=== PATIENT | female | born 1955 | race African-American/Black ===

== ENCOUNTER 2017-11-09 19:04 | Emergency (ER) | payer MEDICARE ==
[2017-11-09 20:08] LABS: Urine Blood NEGATIVE (NEG); Urine Glucose NEGATIVE (NEG); Urine Protein NEGATIVE (NEG)
[2017-11-09 21:03] LABS: Urine Bacteria <20 /HPF (<20); Urine Culture Reflex Order NOT NEEDED; Urine RBC <5 /HPF (NONE SEEN)
[2017-11-09 21:55] LABS: Absolute Lymphocytes (CBC) 1.7 K/uL (0.7-4.9); Absolute Monocytes 0.3 K/uL (0.1-1.3); Absolute Neutrophil 3.4 K/uL (1.8-8.0); Basophils % 0.3 % (0-1.3); Eosinophils % 3.1 % (0-4.4); Lymphocytes % 30.6 % (15.3-44.8); MCH 29.2 pg (27.0-35.0); MCV 86.7 fL (80-100); MPV 7.6 fL (7.6-11.3); RBC Red Blood Cell Count 4.16 M/uL (3.86-4.86)
[2017-11-09] MEDS ORDERED: MORPHINE 4 MG/ML SYR ONE (21:55)
[2017-11-09] MEDS ORDERED: ONDANSETRON 4 MG/2 ML VIAL ONE (21:55)
[2017-11-09 22:12] LABS: ALT/SGPT 36 U/L (12-78); AST/SGOT 17 U/L (15-37); Albumin 3.9 g/dL (3.4-5.0); Alkaline Phosphatase 75 U/L (45-117); Amylase Level 63 U/L (25-115); BUN Blood Urea Nitrogen 15 mg/dL (7-18); Bicarbonate 31 mmol/L (21-32); Bilirubin Direct < 0.1 mg/dL (0-0.2); Bilirubin Total 0.3 mg/dL (0.2-1.0); Glucose Level 90 mg/dL (74-106); Lipase 124 U/L (73-393); Potassium 3.7 mmol/L (3.5-5.1); Protein, Total 7.2 g/dL (6.4-8.2); Sodium Level 145 mmol/L (136-145)
--- NOTE | 2017-11-10 01:02 | ER ---
Nurse's Notes [facility] Name: Nanci Barros Age: 62 yrs Sex: Female : 1955 Arrival Date: 11/09/2017 Time: 19:05 Bed 17 Private MD: Diagnosis: Low back pain Presentation: 11/09 19:21 Presenting complaint: Patient states: lower lateral right sided abdominal pain that aj1 started suddenly today at approximately 1500. Denies N/V/D, fever, dysuria, urinary frequency. Transition of care: patient was not received from another setting of care. Onset of symptoms was November 09, 2017 at 15:00. Risk Assessment: Do you want to hurt yourself or someone else? Patient reports no desire to harm self or others. Initial Sepsis Screen: Does the patient meet any 2 criteria? No. Patient's initial sepsis screen is negative. Does the patient have a suspected source of infection? No. Patient's initial sepsis screen is negative. Care prior to arrival: None. 19:21 Method Of Arrival: Ambulatory [facility] 19:21 Acuity: GET 3 aj1 Triage Assessment: 19:25 General: Appears uncomfortable, Behavior is cooperative, restless. Pain: Complains of aj1 pain in anterior aspect of right lateral abdomen and right lower quadrant Pain does not radiate. Pain currently is 10 out of 10 on a pain scale. Quality of pain is described as heavy, Pain began 4 hours ago. Is continuous. GI: Reports lower abdominal pain, Patient currently denies diarrhea, nausea, vomiting. : Denies burning with urination, urinary frequency. Historical: - Allergies: 19:25 PENICILLINS; aj1 - Home Meds: 19:25 losartan 100 mg Oral tab once daily [Active]; metformin 500 mg Oral tab daily [Active]; aj1 - PMHx: 19:25 Diabetes - NIDDM; Hypertension; psoriasis; aj1 - Immunization history:: Flu vaccine is not up to date. - Social history:: Smoking status: Patient/guardian denies using tobacco. - Ebola Screening: : Patient denies travel to an Ebola-affected area in the 21 days before illness onset. Screenin:00 Abuse screen: Denies threats or abuse. Denies injuries from another. Nutritional bp screening: No deficits noted. Tuberculosis screening: No symptoms or risk factors identified. Fall Risk None identified. Assessment: 20:00 General: Appears in no apparent distress. uncomfortable, Behavior is calm, cooperative, bp appropriate for age. Pain: Complains of pain in right lower quadrant. Neuro: Level of Consciousness is awake, alert, obeys commands, Oriented to person, place, time, situation, Appropriate for age. Cardiovascular: No deficits noted. Respiratory: Airway is patent Respiratory effort is even, unlabored, Respiratory pattern is regular, symmetrical. GI: Reports lower abdominal pain. : Reports pain in right flank(s). EENT: No deficits noted. Derm: No deficits noted. Musculoskeletal: Circulation, motion, and sensation intact. Range of motion: intact in all extremities. 21:23 Reassessment: UNABLE TO OBTAIN U/S PIV x2, PROVIDER NOTIFIED. AWAITING FURTHER ATTEMPTS bp FOR IV MEDICATION AND BLOOD SPECIMEN. 21:58 Reassessment: U/S PIV OBTAINED, PROVIDER NOTIFIED. CT NOTIFIED, PO CONTRAST COMPLETED. bp 23:00 Reassessment: PT TO CT WITH CARDROOM PLASTIC CARD GRADER. bp 11/10 00:00 Reassessment: ALL CURRENT ORDERS COMPLETED, CT RESULTS PENDING FOR DISPO. bp 01:06 Reassessment: PT D/C HOME AMBULATORY, DX WITH BACK PAIN. bp Vital Signs: 11/09 19:25 BP 134 / 77; Pulse 86; Resp 20; Temp 98.5; Pulse Ox 99% ; Weight 122.02 kg (R); Height aj1 5 ft. 6 in. (167.64 cm); Pain 10/10; 21:00 BP 117 / 67; Pulse 75; Resp 16; Pulse Ox 98% ; bp 22:00 BP 132 / 62; Pulse 77; Resp 16; Pulse Ox 94% ; bp 22:45 BP 119 / 58; Pulse 75; Resp 16; Pulse Ox 97% ; bp 11/10 00:00 BP 121 / 62; Pulse 70; Resp 16; Pulse Ox 98% ; bp 11/09 19:25 Body Mass Index 43.42 (122.02 kg, 167.64 cm) aj1 ED Course: 11/09 19:05 Patient arrived in ED. es 19:25 Triage completed. aj1 19:25 Arm band placed on Patient placed in waiting room, Patient notified of wait time. aj1 19:54 Keshav Hendrickson NP is PHCP. pm1 19:54 Behzad Nichole MD is Attending Physician. pm1 20:00 Patient has correct armband on for positive identification. Bed in low position. Call bp light in reach. Side rails up X2. Adult w/ patient. 20:01 Nathaniel Thurman, RN is Primary Nurse. bp 21:45 Initial lab(s) drawn, by me, sent to lab. Inserted saline lock: 22 gauge in left bb antecubital area, using aseptic technique. Blood collected. 23:27 CT Abd/Pelvis - W/Contrast In Process Unspecified. EDMS 23:35 CT completed. Patient tolerated procedure well. Patient moved to ID via wheelchair. Patient moved back from ID. 11/10 00:53 Assisted to bathroom. ak1 01:05 No provider procedures requiring assistance completed. IV discontinued, intact, bp bleeding controlled, No redness/swelling at site. Pressure dressing applied. Administered Medications: 11/09 21:45 Drug: morphine 4 mg Route: IVP; Site: left antecubital; bp 22:45 Follow up: BP 119 / 58; Pulse 75 bpm; Resp 16 bpm; Pulse Ox 97% bp 22:55 Follow up: Response: Pain is decreased bp 21:45 Drug: Zofran 4 mg Route: IVP; Site: left antecubital; bp 22:54 Follow up: Response: Nausea is decreased bp 11/10 01:05 Drug: TORadol 30 mg Route: IVP; Site: left antecubital; bp 01:05 Follow up: Response: Medication administered at discharge. bp Outcome: 01:01 Discharge ordered by MD. pm1 01:06 Discharged to home ambulatory, with family. bp 01:06 Condition: stable 01:06 Discharge instructions given to patient, Instructed on discharge instructions, follow up and referral plans. medication usage, Demonstrated understanding of instructions, follow-up care, medications, Prescriptions given X 1. 01:11 Patient left the ED. bp Signatures: Dispatcher [employer] EDMS Sanam Cardoso, RN RN aj1 Betsy Durán Ervin Nanci Van RN RN bb Ani Goldberg RN RN ak1 Keshav Hendrickson, TOWEL INSPECTOR TOWEL INSPECTOR pm1 Nathaniel Thurman, RN RN bp
--- NOTE | 2017-11-10 01:02 | EDPHYS ---
Physician Documentation [facility] Name: Nanci Barros Age: 62 yrs Sex: Female : 1955 Arrival Date: 11/09/2017 Time: 19:05 Bed 17 Private MD: ED Physician Behzad Nichole HPI: 11/10 01:00 This 62 yrs old Black Female presents to ER via Ambulatory with complaints of Right pm1 Flank Pain. 01:00 The patient complains of pain in the right low back. pm1 01:00 The pain does not radiate. Onset: The symptoms/episode began/occurred today. Modifying pm1 factors: The symptoms are alleviated by nothing. the symptoms are aggravated by movement. Associated signs and symptoms: Pertinent negatives: diarrhea, dysuria, fever, headache, nausea, vomiting. Severity of pain: in the emergency department the pain is actually worse. The patient has not experienced similar symptoms in the past. The patient has not recently seen a physician. Patient with right flank pain onset while she was making a sandwich for her grandson. Historical: - Allergies: 11/09 19:25 PENICILLINS; aj1 - Home Meds: 19:25 losartan 100 mg Oral tab once daily [Active]; metformin 500 mg Oral tab daily [Active]; aj1 - PMHx: 19:25 Diabetes - NIDDM; Hypertension; psoriasis; aj1 - Immunization history:: Flu vaccine is not up to date. - Social history:: Smoking status: Patient/guardian denies using tobacco. - Ebola Screening: : Patient denies travel to an Ebola-affected area in the 21 days before illness onset. ROS: 11/10 01:00 Constitutional: Negative for fever, chills, and weight loss, Eyes: Negative for injury, pm1 pain, redness, and discharge, ENT: Negative for injury, pain, and discharge, Neck: Negative for injury, pain, and swelling, Cardiovascular: Negative for chest pain, palpitations, and edema, Respiratory: Negative for shortness of breath, cough, wheezing, and pleuritic chest pain, Abdomen/GI: Negative for abdominal pain, nausea, vomiting, diarrhea, and constipation. : Negative for injury, bleeding, discharge, and swelling, MS/Extremity: Negative for injury and deformity, Skin: Negative for injury, rash, and discoloration, Neuro: Negative for headache, weakness, numbness, tingling, and seizure. Back: Positive for flank pain, on the right. Exam: 01:00 Constitutional: This is a well developed, well nourished patient who is awake, alert, pm1 and in no acute distress. Head/Face: Normocephalic, atraumatic. Eyes: Pupils equal round and reactive to light, extra-ocular motions intact. Lids and lashes normal. Conjunctiva and sclera are non-icteric and not injected. Cornea within normal limits. Periorbital areas with no swelling, redness, or edema. ENT: Nares patent. No nasal discharge, no septal abnormalities noted. Tympanic membranes are normal and external auditory canals are clear. Oropharynx with no redness, swelling, or masses, exudates, or evidence of obstruction, uvula midline. Mucous membranes moist. Neck: Trachea midline, no thyromegaly or masses palpated, and no cervical lymphadenopathy. Supple, full range of motion without nuchal rigidity, or vertebral point tenderness. No Meningismus. Chest/axilla: Normal chest wall appearance and motion. Nontender with no deformity. No lesions are appreciated. 01:00 Respiratory: Lungs have equal breath sounds bilaterally, clear to auscultation and percussion. No rales, rhonchi or wheezes noted. No increased work of breathing, no retractions or nasal flaring. Abdomen/GI: Soft, non-tender, with normal bowel sounds. No distension or tympany. No guarding or rebound. No evidence of tenderness throughout. 01:00 Skin: Warm, dry with normal turgor. Normal color with no rashes, no lesions, and no evidence of cellulitis. MS/ Extremity: Pulses equal, no cyanosis. Neurovascular intact. Full, normal range of motion. 01:00 Cardiovascular: Rate: normal, Rhythm: regular, Edema: is not appreciated. 01:00 Back: normal spinal alignment noted, vertebral tenderness, is not appreciated, muscle spasm, is appreciated in the right low back. 01:00 Neuro: Orientation: is normal, Mentation: is normal, Motor: is normal, Sensation: is normal, no obvious gross deficits. Vital Signs: 11/09 19:25 BP 134 / 77; Pulse 86; Resp 20; Temp 98.5; Pulse Ox 99% ; Weight 122.02 kg (R); Height aj1 5 ft. 6 in. (167.64 cm); Pain 10/10; 21:00 BP 117 / 67; Pulse 75; Resp 16; Pulse Ox 98% ; bp 22:00 BP 132 / 62; Pulse 77; Resp 16; Pulse Ox 94% ; bp 22:45 BP 119 / 58; Pulse 75; Resp 16; Pulse Ox 97% ; bp 11/10 00:00 BP 121 / 62; Pulse 70; Resp 16; Pulse Ox 98% ; bp 11/09 19:25 Body Mass Index 43.42 (122.02 kg, 167.64 cm) aj1 MDM: 11/09 19:56 Patient medically screened. pm1 11/10 00:53 Data reviewed: vital signs. Data interpreted: Pulse oximetry: on room air is 98 %. pm1 Interpretation: normal. Counseling: I had a detailed discussion with the patient and/or guardian regarding: the historical points, exam findings, and any diagnostic results supporting the discharge/admit diagnosis, lab results, radiology results, the need for outpatient follow up, to return to the emergency department if symptoms worsen or persist or if there are any questions or concerns that arise at home. 11/09 20:04 Order name: Urine Dipstick--Ancillary (enter results); Complete Time: 23: 11/09 20:31 Order name: Amylase, Serum; Complete Time: 23:02 pm11/09 20:31 Order name: Basic Metabolic Panel; Complete Time: 23:02 pm11/09 20:31 Order name: CBC with Diff; Complete Time: 23:02 pm11/09 20:31 Order name: Creatinine for Radiology; Complete Time: 23:02 pm11/09 20:31 Order name: Hepatic Function; Complete Time: 23:02 pm11/09 20:04 Order name: Urine Dipstick-Ancillary (obtain specimen); Complete Time: 20:04 11/09 20:31 Order name: Lipase; Complete Time: 23:02 pm11/09 20:31 Order name: Urine Microscopic Only; Complete Time: 23:02 pm11/09 20:31 Order name: CT Abd/Pelvis - W/Contrast pm1 11/09 20:31 Order name: IV Saline Lock; Complete Time: 21:57 pm11/09 20:31 Order name: Labs collected and sent; Complete Time: 21:58 pm1 Administered Medications: 11/09 21:45 Drug: morphine 4 mg Route: IVP; Site: left antecubital; bp 22:45 Follow up: BP 119 / 58; Pulse 75 bpm; Resp 16 bpm; Pulse Ox 97% bp 22:55 Follow up: Response: Pain is decreased bp 21:45 Drug: Zofran 4 mg Route: IVP; Site: left antecubital; bp 22:54 Follow up: Response: Nausea is decreased bp 11/10 01:05 Drug: TORadol 30 mg Route: IVP; Site: left antecubital; bp 01:05 Follow up: Response: Medication administered at discharge. bp Disposition: 15:41 Co-signature as Attending Physician, Behzad Nichole MD I agree with the assessment and antonio plan of care. Disposition: 11/10/17 01:01 Discharged to Home. Impression: Low back pain. - Condition is Stable. - Discharge Instructions: Back Pain, Adult. - Prescriptions for Tylenol- Codeine #3 300-30 mg Oral Tablet - take 1 tablet by ORAL route every 6 hours As needed; 15 tablet. - Medication Reconciliation Form, Thank You Letter, Prescription Opioid Use form. - Follow up: Emergency Department; When: As needed; Reason: Worsening of condition. Follow up: Private Physician; When: 2 - 3 days; Reason: Recheck today's complaints, Continuance of care, Re-evaluation by your physician. - Problem is new. - Symptoms have improved. Signatures: Dispatcher [employer] EDMS Sanam Cardoso RN RN aj1 Behzad Nichole MD MD cha Ballard, Brenda, RN RN Keshav Rodriguez, JULISA SENIOR INTERNAL AUDITOR pm1 Nathaniel Thurman RN RN bp Corrections: (The following items were deleted from the chart) 01:11 01:01 11/10/2017 01:01 Discharged to Home. Impression: Low back pain. Condition is bp Stable. Forms are Medication Reconciliation Form, Thank You Letter, Antibiotic Education, Prescription Opioid Use. Follow up: Emergency Department; When: As needed; Reason: Worsening of condition. Follow up: Private Physician; When: 2 - 3 days; Reason: Recheck today's complaints, Continuance of care, Re-evaluation by your physician. Problem is new. Symptoms have improved. pm1
[2017-11-10] MEDS ORDERED: KETOROLAC 30 MG/ML INJ ONE (01:04)
[2017-11-10 02:17] VITALS: TEMP 98.5
[2017-11-10 02:22] VITALS: BP 121/62; O2SAT 98
--- NOTE | 2017-11-10 08:21 | RAD REPORT ---
EXAM DESCRIPTION: CTAbdomen Pelvis W Contrast - 11/10/2017 3:29 am CLINICAL HISTORY: Abdominal pain. FLANK PAIN COMPARISON: Abdomen Pelvis W Contrast dated 08/24/2016 TECHNIQUE: Biphasic CT imaging of the abdomen and pelvis was performed with 100 ml non-ionic IV cont rast. All CT scans are performed using dose optimization technique as appropriate and may include automated exposure control or mA/KV adjustment according to patient size. FINDINGS: The lung bases are clear. Diffuse fatty liver is present. Cholecystectomy clips are seen. The spleen, pancreas and adrenal glan ds are normal. Markedly atrophic left kidney present. Punctate stone present right kidney. No bowel obstruction, free air, free fluid or abscess. Sigmoid diverticulosis coli is present without diverticulitis. The appendix is normal. No evidence of significant lymphadenopathy. Lumbosacral degenerative changes are present. IMPRESSION: Diffuse fatty liver. Sigmoid diverticulosis coli without diverticulitis. Punctate right renal calculus without hydronephrosis.
== END 2017-11-10 01:11 | disposition home or self-care (01) ==
LOC: ER 19:04
DX: M54.5 Low back pain (principal); I10 Essential (primary) hypertension; E11.9 Type 2 diabetes mellitus without complications; Z88.0 Allergy status to penicillin
CPT/HCPCS: 36415; 74177; 80048; 80076; 82150; 83690; 85025; 96374; 96375; 99284; J2405; Q9967; 81003; 81015

== ENCOUNTER 2018-02-04 23:14 | Emergency (ER) | payer MEDICARE ==
--- NOTE | 2018-02-04 23:52 | EDPHYS ---
Physician Documentation [facility] Name: Nanci Barros Age: 62 yrs Sex: Female : 1955 Arrival Date: 02/04/2018 Time: 23:17 Bed 20 Private MD: ED Physician Brian Gudino HPI: 02/04 23:48 This 62 yrs old Black Female presents to ER via Wheelchair with complaints of Knee Pain.gs 23:48 The patient presents with pain. The complaints affect the left knee. Onset: The gs symptoms/episode began/occurred 2 week(s) ago, and became worse and became persistent. Modifying factors: the symptoms are aggravated by movement. Associated signs and symptoms: Pertinent negatives numbness, tingling. Severity of symptoms: At their worst the symptoms were moderate, in the emergency department the symptoms are unchanged. The patient has experienced similar episodes in the past, chronically. The patient has been recently seen by a physician: had injection in that knee last week. Historical: - Allergies: 23:30 PENICILLINS; tl2 - Home Meds: 23:30 losartan 100 mg Oral tab once daily [Active]; metformin 500 mg Oral tab daily [Active]; tl2 - PMHx: 23:30 Diabetes - NIDDM; Hypertension; psoriasis; tl2 - PSHx: 23:30 Cholecystectomy; tl2 - Immunization history:: Adult Immunizations up to date. - Social history:: Smoking status: Patient/guardian denies using tobacco. - Ebola Screening: : No symptoms or risks identified at this time. ROS: 23:48 All other systems are negative. gs Exam: 23:48 Cardiovascular: Regular rate and rhythm with a normal S1 and S2. No gallops, murmurs, gs or rubs. Normal PMI, no JVD. No pulse deficits. Respiratory: Lungs have equal breath sounds bilaterally, clear to auscultation and percussion. No rales, rhonchi or wheezes noted. No increased work of breathing, no retractions or nasal flaring. Abdomen/GI: Soft, non-tender, with normal bowel sounds. No distension or tympany. No guarding or rebound. No evidence of tenderness throughout. Skin: Warm, dry with normal turgor. Normal color with no rashes, no lesions, and no evidence of cellulitis. 23:48 Constitutional: The patient appears alert, awake. 23:48 Musculoskeletal/extremity: ROM: limited active range of motion due to pain, limited passive range of motion due to pain, Pulses: are normal with no appreciated deficits. Vital Signs: 23:30 BP 125 / 47; Pulse 85; Resp 18; Temp 97.6(O); Pulse Ox 100% ; Weight 117.93 kg; Height tl2 5 ft. 6 in. (167.64 cm); Pain 10/10; 02/05 00:00 BP 132 / 65; Pulse 87; Resp 17; Pulse Ox 100% on R/A; Pain 10/10; tl1 02/04 23:30 Body Mass Index 41.96 (117.93 kg, 167.64 cm) tl2 MDM: 02/04 23:46 Patient medically screened. gs 23:48 Differential diagnosis: tendonitis, arthritis. Data reviewed: vital signs, nurses gs notes. ED course: informed would refer to back to chronic pain physician and ortho. Administered Medications: No medications were administered Disposition: 02/04/18 23:51 Discharged to Home. Impression: Osteoarthritis of knee. - Condition is Stable. - Discharge Instructions: Arthritis. - Medication Reconciliation Form, Thank You Letter, Antibiotic Education, Prescription Opioid Use form. - Follow up: Private Physician; When: 2 - 3 days; Reason: Re-evaluation by your physician. Follow up: Fran Reynolds DO; When: 2 - 3 days; Reason: Re-evaluation by your physician. Follow up: Jelani Galarza MD; When: 2 - 3 days; Reason: Re-evaluation by your physician. Signatures: Tyesha Cantu RN RN tl1 Margoth Amezquita RN RN tl2 Brian Gudino MD MD Corrections: (The following items were deleted from the chart) 23:51 23:51 02/04/2018 23:51 Discharged to Home. Impression: Osteoarthritis of knee. gs Condition is Stable. Forms are Medication Reconciliation Form, Thank You Letter, Antibiotic Education, Prescription Opioid Use. Follow up: Private Physician; When: 2 - 3 days; Reason: Re-evaluation by your physician. 23:52 23:51 02/04/2018 23:51 Discharged to Home. Impression: Osteoarthritis of knee. gs Condition is Stable. Forms are Medication Reconciliation Form, Thank You Letter, Antibiotic Education, Prescription Opioid Use. Follow up: Private Physician; When: 2 - 3 days; Reason: Re-evaluation by your physician. Follow up: Fran Reynolds; When: 2 - 3 days; Reason: Re-evaluation by your physician. 02/05 00:13 02/04 23:52 02/04/2018 23:51 Discharged to Home. Impression: Osteoarthritis of knee. tl1 Condition is Stable. Forms are Medication Reconciliation Form, Thank You Letter, Antibiotic Education, Prescription Opioid Use. Follow up: Private Physician; When: 2 - 3 days; Reason: Re-evaluation by your physician. Follow up: Fran Reynolds; When: 2 - 3 days; Reason: Re-evaluation by your physician. Follow up: Jelani Galarza; When: 2 - 3 days; Reason: Re-evaluation by your physician.
--- NOTE | 2018-02-04 23:52 | ER ---
Nurse's Notes [facility] Name: Nanci Barros Age: 62 yrs Sex: Female : 1955 Arrival Date: 02/04/2018 Time: 23:17 Bed 20 Private MD: Diagnosis: Osteoarthritis of knee Presentation: 02/04 23:27 Presenting complaint: Patient states: I got a steroid shot in my knee on Tuesday and the tl2 pain has increased. Transition of care: patient was not received from another setting of care. Onset of symptoms was January 30, 2018. Risk Assessment: Do you want to hurt yourself or someone else? Patient reports no desire to harm self or others. Initial Sepsis Screen: Does the patient meet any 2 criteria? No. Patient's initial sepsis screen is negative. Does the patient have a suspected source of infection? No. Patient's initial sepsis screen is negative. Care prior to arrival: None. 23:27 Method Of Arrival: Wheelchair tl2 23:27 Acuity: GET 4 tl2 Triage Assessment: 23:30 General: Appears in no apparent distress. uncomfortable, Behavior is calm, cooperative, tl2 appropriate for age. Pain: Complains of pain in left knee. Neuro: Level of Consciousness is awake, alert, obeys commands, Oriented to person, place, time, situation. Cardiovascular: Denies chest pain. Respiratory: Airway is patent Respiratory effort is even, unlabored, Respiratory pattern is regular, symmetrical. Derm: Skin is pink, warm \T\ dry. Musculoskeletal: Circulation, motion, and sensation intact. Range of motion: limited in left knee Swelling absent. Historical: - Allergies: 23:30 PENICILLINS; tl2 - Home Meds: 23:30 losartan 100 mg Oral tab once daily [Active]; metformin 500 mg Oral tab daily [Active]; tl2 - PMHx: 23:30 Diabetes - NIDDM; Hypertension; psoriasis; tl2 - PSHx: 23:30 Cholecystectomy; tl2 - Immunization history:: Adult Immunizations up to date. - Social history:: Smoking status: Patient/guardian denies using tobacco. - Ebola Screening: : No symptoms or risks identified at this time. Screenin:34 Abuse screen: Denies threats or abuse. Nutritional screening: No deficits noted. tl2 Tuberculosis screening: No symptoms or risk factors identified. Fall Risk Gait- Impaired (20 pts.). Assessment: 02/05 00:10 Reassessment: No changes from previously documented assessment. Patient and/or family tl1 updated on plan of care and expected duration. Pain level reassessed. Patient is alert, oriented x 3, equal unlabored respirations, skin warm/dry/pink. Patient states symptoms have not improved. Vital Signs: 02/04 23:30 BP 125 / 47; Pulse 85; Resp 18; Temp 97.6(O); Pulse Ox 100% ; Weight 117.93 kg; Height tl2 5 ft. 6 in. (167.64 cm); Pain 10/10; 02/05 00:00 BP 132 / 65; Pulse 87; Resp 17; Pulse Ox 100% on R/A; Pain 10/10; tl1 02/04 23:30 Body Mass Index 41.96 (117.93 kg, 167.64 cm) tl2 ED Course: 02/04 23:17 Patient arrived in ED. ds1 23:29 Triage completed. tl2 23:30 Arm band placed on right wrist. tl2 23:34 Brian Gudino MD is Attending Physician. gs 23:34 Patient has correct armband on for positive identification. Bed in low position. Call tl2 light in reach. Side rails up X2. 23:51 Fran Reynolds DO is Referral Physician. 23:52 Jelani Galarza MD is Referral Physician. 02/05 00:00 Tyesha Cantu RN is Primary Nurse. tl1 00:10 No provider procedures requiring assistance completed. IV discontinued, intact, tl1 bleeding controlled, No redness/swelling at site. Pressure dressing applied. Administered Medications: No medications were administered Outcome: 02/04 23:51 Discharge ordered by . 02/05 00:11 Discharged to home via wheelchair, with family. tl1 Condition: stable Discharge instructions given to patient, family, Instructed on discharge instructions, follow up and referral plans. medication usage, Demonstrated understanding of instructions, follow-up care, medications, Prescriptions given X 3. 00:13 Patient left the ED. tl1 Signatures: Kristen Zaragoza ds1 Tyesha Cantu RN RN tl1 Margoth Amezquita RN RN tl2 Brian Gudino MD MD
[2018-02-05 00:26] VITALS: TEMP 97.6; O2SAT 100
[2018-02-05 00:27] VITALS: BP 132/65
== END 2018-02-05 00:13 | disposition home or self-care (01) ==
LOC: ER 23:14
DX: M17.12 Unilateral primary osteoarthritis, left knee (principal); I10 Essential (primary) hypertension; E11.9 Type 2 diabetes mellitus without complications; Z88.0 Allergy status to penicillin
CPT/HCPCS: 99282

== ENCOUNTER 2018-07-16 05:28 | Emergency (ER) | payer MEDICARE ==
--- OUTSIDE RECORDS SUMMARY | 2018-07-16 05:30 | XMS REPORT | Summary of Care ---
:1955 Author Name Sybil Machado M.A. Address Unavailable Unavailable , Care Team Providers Name Role Phone LIA Young, GALINDO Unavailable Unavailable LAZARO Young, DALE Unavailable Unavailable DANILO AYERS, ALEJANDRINA Hickey Unavailable Unavailable SUZETTE YAERS, COLTEN KUMARI Unavailable Unavailable Unavailable Unavailable Unavailable Functional Status Name Dates Details Functional status health issues are not documented Status: Name Dates Details Cognitive status health issues are not documented Status: Problems Name Dates Details Extremity pain (729.5, M79.609) Status: Active Well female exam with routine gynecological exam (V72.31, Z01.419) Status: Active Perineal rash (782.1, R21) Status: Active Vaginal dryness (625.8, N89.8) Status: Active Medications Name Dates Details Losartan Potassium TABS Refills: 0 Active MetFORMIN HCl - 500 MG Oral Tablet Refills: 0 Active Nystatin-Triamcinolone 817584-3.1 UNIT/GM-% External Cream APPLY 2 GM Twice daily Quantity: 30 Refills: 0 DALE WILLIS M.D. Start : 31-May-2016 Active Oxybutynin Chloride ER 5 MG Oral Tablet Extended Release 24 Hour TAKE 1 TABLET DAILY Quantity: 30 Refills: 11 DALE WILLIS M.D. Start : 31-May-2016 Active Estrace 0.1 MG/GM Vaginal Cream INSERT 1/4 APPLICATORFUL (1GM) VAGINALLY TWICE WEEKLY. Quantity: 10 Refills: 3 DALE WILLIS M.D. Start : 31-May-2016 Active Allergies and Adverse Reactions Name Dates Details Penicillins (Allergy) Status: Active Past Medical History Name Dates Details History of esophageal reflux (V12.79, Z87.19) Status: Resolved History of hypertension (V12.59, Z86.79) Status: Resolved History of type 2 diabetes mellitus (V12.29, Z86.39) Status: Resolved Procedures Procedure Dates Details History of Cholecystectomy Completed History of Treatment Of The Right Leg Completed History of Shoulder Surgery Right Completed History of Kidney Surgery Completed Immunization Name Dates Details Immunizations not documented Family History Name Dates Details Family history of diabetes mellitus (V18.0, Z83.3) Comments: Multiple Family Members Status: Active Family history of hypertension (V17.49, Z82.49) Comments: Multiple Family Members Status: Active Name Dates Details Family history of diabetes mellitus (V18.0, Z83.3) Status: Active Family history of hypertension (V17.49, Z82.49) Status: Active Family history of malignant neoplasm of stomach (V16.0, Z80.0) Status: Active Name Dates Details Family history of diabetes mellitus (V18.0, Z83.3) Status: Active Family history of hypertension (V17.49, Z82.49) Status: Active Name Dates Details Family history of diabetes mellitus (V18.0, Z83.3) Status: Active Family history of hypertension (V17.49, Z82.49) Status: Active Social History Name Dates Details - Status: Name Dates Details Never smoker Vital Signs Date Test Result Details 1-Wph-680350:49 Height 66 in Status: Weight 238 lb Status: Body Mass Index Calculated 38.41 kg/m2 Status: Body Surface Area Calculated 2.15 m2 Status: Results Date Description Value Details 24-Mar-20189:05 [U] XRAY KNEE 4 OR MORE VWS LEFT 34083 XR KNEE 4 OR MORE VWS LEFT Images acquired, not reported on this accession number. Plan of Care Name Dates Details Planned Observations Planned Goals not documented Interventions Provided Labs/Procedures/Imaging[U] XRAY KNEE 4 OR MORE VWS LEFT 62974; Done: 24 Mar 2018 Instructions Name Dates Details Instructions not documented Encounters Appointment; DALE WILLIS M.D. On: 31-May-2016 11:00 Encounter Diagnosis: Problem not documented Appointment; GALINDO FITZGERALD M.D. On: 24-Mar-2018 9:00 Encounter Diagnosis: Problem not documented
--- OUTSIDE RECORDS SUMMARY | 2018-07-16 05:30 | XMS REPORT ---
:1955 Author Organization [facility] Address [address] [place] [address] Care Team Providers Name Role Phone Unavailable Unavailable Unavailable Payers Payer Name Policy Type Policy Number Effective Date Expiration Date Problems This patient has no known problems. Allergies, Adverse Reactions, Alerts Allergy Name Allergy Status Severity Reaction(s) Onset Inactive Treating Comments Type Date Date Clinician Penicillins DA Active CA 2014-02 00:00:0 0 Medications This patient has no known medications. Results Test Description Test Time Test Comments Text Results Atomic Results Result Comments URINALYSIS COMPLETE 2018-07-12 13:56:00 Test Item Value Reference Range Comments UA COLOR (test code=COLU) YELLOW discript YEL/STRAW UA APPEARANCE (test code=APPU) CLEAR discript CLEAR UA GLUCOSE DIPSTICK (test code=DGLUU) NEGATIVE mg/dL NEG UA BILIRUBIN DIPSTICK (test code=BILU) NEGATIVE mg/dL NEG UA KETONE DIPSTICK (test code=KETU) NEGATIVE mg/dL NEG UA SPECIFIC GRAVITY (test code=SGU) 1.010 SG 1.005-1.030 UA BLOOD DIPSTICK (test code=TUSHAR) NEGATIVE mg/DL NEG UA PH DIPSTICK (test code=HILDA) 7.0 pH UNITS 5.0-7.0 UA PROTEIN DIPSTICK (test code=PROU) NEGATIVE mg/dL NEG UA UROBILINIOGEN DIPSTICK (test code=URO) 0.2 mg/dL <2.0 UA NITRITE DIPSTICK (test code=BARI) NEGATIVE SCREEN NEG UA LEUKOCYTE ESTERASE DIPSTICK (test code=LEUU) NEGATIVE Leuk/mcL NEGATIVE DRUGS OF ABUSE SCREEN [id number] 13:56:00 Test Item Value Reference Range Comments URN COCAINE (test code=COCAURN) NEGATIVE SCcutoff <300 NG/ML URN CANNABINOIDS (test code=CANNABURN) NEGATIVE SCcutoff <50 NG/ML URN AMPHETAMINE (test code=AMPHETURN) NEGATIVE SCcutoff <1000 NG/ML URN BARBITURATE (test code=BARBITURN) NEGATIVE SCcutoff <200 NG/ML URN BENZODIAZEPINE (test code=BENZOURN) NEGATIVE SCcutoff <200 NG/ML URN OPIATES (test code=OPIATURN) NEGATIVE SCcutoff <2000 NG/ML URN PHENCYCLIDINE (PCP) (test NEGATIVE SCcutoff <25 NG/ML code=PHENCURN) URN METHADONE (test code=METHAURN) NEGATIVE SCcutoff <300 NG/ML RULE OUT CA [id number] 10:28:00 Test Item Value Reference Range Comments CREATINE KINASE (CK) 94 Unit/L 26-192 (test code=CK) TROPONIN-I (test < 0.015 NG/ML 0.000-0.045 Negative: </=0.045 Positive: code=TROPI) >/=0.046 Correlation with serial results, other cardiac markers, and clinical findings is necessary to determine the clinical significance of this result. Quantitative results using different methodologies should not be compared to one another as numerical results may varyby method. BASIC METABOLIC [id number] 10:24:00 Test Item Value Reference Range Comments SODIUM (test code=NA) 140 mmol/L 134-147 POTASSIUM (test code=K) 3.7 mmol/L 3.4-5.0 CHLORIDE (test code=CL) 107 mmol/L 100-108 CARBON DIOXIDE (test code=CO2) 27 mmol/L 21-32 ANION GAP (test code=GAP) 6.0 GAP calc 4.0-15.0 GLUCOSE (test code=GLU) 81 MG/DL 70-110 BLOOD UREA NITROGEN (test code=BUN) 16 MG/DL 7-18 GLOMERULAR FILTRATION RATE (test >=60 max estimate estGFR >60 code=GFR) CREATININE (test code=CREAT) 1.0 MG/DL 0.6-1.0 CALCIUM (test code=CA) 9.0 MG/DL 8.5-10.1 HEPATIC FUNCTION [id number] 10:24:00 Test Item Value Reference Range Comments TOTAL PROTEIN (test code=PROT) 7.1 G/DL 6.4-8.2 ALBUMIN (test code=ALB) 3.6 G/DL 3.4-5.0 BILIRUBIN TOTAL (test code=BILT) 0.50 MG/DL 0.2-1.2 BILIRUBIN DIRECT (test code=BILD) 0.10 MG/DL 0.00-0.30 BILIRUBIN INDIRECT (test code=BILIND) 0.40 MG/DL 0.2-1.2 SGOT/AST (test code=AST) 22 Unit/L 15-37 SGPT/ALT (test code=ALT) 38 Unit/L 12-78 ALKALINE PHOSPHATASE TOTAL (test code=ALKP) 78 Unit/L 45-117 [id number] 10:24:00 Test Item Value Reference Range Comments LIPASE (test code=LIP) 93 Unit/L 114-286 URINALYSIS [id number] 10:11:00 Test Item Value Reference Range Comments UA COLOR (test code=COLU) YELLOW discript YEL/STRAW UA APPEARANCE (test code=APPU) CLEAR discript CLEAR UA GLUCOSE DIPSTICK (test code=DGLUU) NEGATIVE mg/dL NEG UA BILIRUBIN DIPSTICK (test code=BILU) NEGATIVE mg/dL NEG UA KETONE DIPSTICK (test code=KETU) NEGATIVE mg/dL NEG UA SPECIFIC GRAVITY (test code=SGU) 1.010 SG 1.005-1.030 UA BLOOD DIPSTICK (test code=TUSHAR) NEGATIVE mg/DL NEG UA PH DIPSTICK (test code=HILDA) 7.0 pH UNITS 5.0-7.0 UA PROTEIN DIPSTICK (test code=PROU) NEGATIVE mg/dL NEG UA UROBILINIOGEN DIPSTICK (test code=URO) 0.2 mg/dL <2.0 UA NITRITE DIPSTICK (test code=BARI) NEGATIVE SCREEN NEG UA LEUKOCYTE ESTERASE DIPSTICK (test NEGATIVE Leuk/mcL NEGATIVE code=LEUU) DRUGS OF ABUSE SCREEN [id number] 10:11:00 Test Item Value Reference Range Comments URN COCAINE (test code=COCAURN) SCcutoff <300 NG/ML URN CANNABINOIDS (test code=CANNABURN) SCcutoff <50 NG/ML URN AMPHETAMINE (test code=AMPHETURN) SCcutoff <1000 NG/ML URN BARBITURATE (test code=BARBITURN) SCcutoff <200 NG/ML URN BENZODIAZEPINE (test code=BENZOURN) SCcutoff <200 NG/ML URN OPIATES (test code=OPIATURN) SCcutoff <2000 NG/ML URN PHENCYCLIDINE (PCP) (test code=PHENCURN) SCcutoff <25 NG/ML URN METHADONE (test code=METHAURN) SCcutoff <300 NG/ML CBC W/AUTO [id number] 10:07:00 Test Item Value Reference Range Comments WHITE BLOOD CELL (test code=WBC) 4.6 K/mm3 3.5-11.0 RED BLOOD CELL (test code=RBC) 3.97 M/mm3 4.70-6.10 HEMOGLOBIN (test code=HGB) 11.4 G/DL 10.4-14.9 HEMATOCRIT (test code=HCT) 35.3 % 31.5-44.1 MEAN CELL VOLUME (test code=MCV) 88.9 Fl 84.5-98.6 MEAN CELL HGB (test code=MCH) 28.7 pg 27.0-34.2 MEAN CELL HGB CONCETRATION (test code=MCHC) 32.3 G/DL 31.5-34.0 RED CELL DISTRIBUTION WIDTH (test code=RDW) 13.2 SD 11.5-14.5 PLATELET COUNT (test code=PLT) 164.0 K/mm3 150-450 MEAN PLATELET VOLUME (test code=MPV) 9.40 fL 7.0-10.5 NEUTROPHIL % (test code=NT%) 53.8 % 40-76 LYMPHOCYTE % (test code=LY%) 35.0 % 20.5-51.1 MONOCYTE % (test code=MO%) 7.3 % 1.7-9.3 EOSINOPHIL % (test code=EO%) 3.7 % 0.0-6.0 BASOPHIL % (test code=BA%) 0.2 % 0.0-2.0 NEUTROPHIL # (test code=NT#) 2.49 K/mm3 1.8-7.6 LYMPHOCYTE # (test code=LY#) 1.6 K/mm3 0.6-3.2 MONOCYTE # (test code=MO#) 0.3 K/mm3 0.3-1.1 EOSINOPHIL # (test code=EO#) 0.2 K/mm3 0.0-0.4 BASOPHIL # (test code=BA#) 0.0 K/mm3 0.0-0.1 MANUAL DIFF REQUIRED (test code=MDIFF) NO DIFF/SCN CRITERIA - XR CHEST 1 [id number] 09:28:00 Name: NINA NEELY [facility] [place] : 1955 Age/S: 63 / F [id number] Unit #: [id number] Loc: [place] [address] Phys: Nash Osei MD Acct: [id number] Dis Date: Status: REG ER PHONE #: [phone] Exam Date: 07/12/2018919 FAX #: Reason: cp EXAMS: CPT : [id number] XR CHEST 1 V 17212 Fluoro Time: DAP (Gy m2): Air Kerma (mGy): Location: U19. CHEST, FRONTAL VIEW HISTORY: cp COMPARISON: Chest x-ray 08/16/16. FINDINGS: The lungs are clear without consolidation. No pleural effusion or pneumothorax. The heart size is normal. Degenerative changes affect the thoracic spine. Several wires overlie the chest. IMPRESSION: No evidence of acute cardiopulmonary disease. Electronically Signed by Hannah Baxter on 2018 at 0928 Reported and signed by: Dinh Baxter M.D. CC: Nash Osei MD PAGE 1 Signed Report Name: NINA NEELY [facility] : 1955 Age/S: 63 / F [id number] Unit #: [id number] Loc: [place] [address] Phys: Nash Osei MD Acct: [id number] Dis Date: Status: REG ER PHONE #: [phone] Exam Date: 2018 FAX #: Reason: cp EXAMS: CPT: [id number] XR CHEST 1 V 87564 Fluoro Time: DAP (Gy m2): Air Kerma (mGy): <Continued> Technologist: Breanna Kapadia, RT(R); Aleks Yan RT(R)(MR) [facility] Date/Time: 2018 (0928) Oralia.[email or web address] Orig Print D/T: S: 07/12/2018 (0939 ) PAGE 2 Signed Report
[2018-07-16] MEDS ORDERED: FAMOTIDINE 20 MG/2 ML VIAL IV ONE (06:15)
[2018-07-16] MEDS ORDERED: NA CHLORIDE 0.9% 500 ML ONE ×2 (06:15→08:58)
[2018-07-16] MEDS ORDERED: MAGNE/ALUM HYDROXD 30 ML UCUP ONE (06:15)
[2018-07-16] MEDS ORDERED: LIDOCAINE VISCOUS 2% SOLN 15 ML UDC ONE (06:15)
[2018-07-16] MEDS ORDERED: ONDANSETRON 4 MG/2 ML VIAL ONE (06:15)
[2018-07-16 06:42] LABS: Absolute Lymphocytes (CBC) 1.2 K/uL (0.7-4.9); Absolute Monocytes 0.2 K/uL (0.1-1.3); Basophils % 0.3 % (0-1.3); Eosinophils % 4.1 % (0-4.4); Hematocrit 39.8 % (36.0-45.0); Lymphocytes % 34.1 % (15.3-44.8); MPV 7.5 fL (7.6-11.3); Monocytes % 6.5 % (3.3-12.3); RBC Red Blood Cell Count 4.58 M/uL (3.86-4.86)
[2018-07-16 06:59] LABS: Albumin 4.2 g/dL (3.4-5.0); Bilirubin Direct 0.2 mg/dL (0-0.2); Bilirubin Total 0.5 mg/dL (0.2-1.0); Potassium 3.6 mmol/L (3.5-5.1); Protein, Total 7.8 g/dL (6.4-8.2)
--- NOTE | 2018-07-16 08:31 | RAD REPORT ---
EXAM DESCRIPTION: CT - Abdomen Pelvis W Contrast - 07/16/2018 8:06 am CLINICAL HISTORY: Abdominal pain. COMPARISON: October 2017 TECHNIQUE: Computed axial tomography of the abdomen and pelvis was obtained. 100 cc Isovue-300 is ad ministered intravenously. Oral contrast was given. All CT scans are performed using dose optimization technique as appropriate and may include automated exposure control or mA/KV adjustment according to patient size. FINDINGS: Fatty liver Gallbladder has been removed. Splenic granuloma. 1 millimeter right renal calculus without hydronephrosis. Small left kidney with cortical thinning Pancreas and adrenals appear unremarkable. Small umbilical hernia The appendix is normal caliber. There is no evidence of diverticulitis The wall of the distal rectum appears mildly thickened. The endometrial stripe appears mildly prominent . Spondylosis involves lumbar spine resulting spinal stenosis IMPRESSION: The wall of the distal rectum appears mildly thickened which could be secondary to proc titis or incomplete distention The endometrial stripe appears mildly prominent. Nonemergent pelvic ultrasound recommended
--- NOTE | 2018-07-16 08:42 | EDPHYS ---
Physician Documentation [facility] Name: Nanci Barros Age: 63 yrs Sex: Female : 1955 Arrival Date: 07/16/2018 Time: 05:29 Bed 17 Private MD: ED Physician Behzad Nichole HPI: 07/16 06:16 This 63 yrs old Black Female presents to ER via Ambulatory with complaints of rn Nausea/Vomiting/Diarrhea, Abdominal Pain. 06:16 The patient presents to the emergency department with nausea, vomiting, diarrhea, rn abdominal pain, of the epigastric area. 06:17 Onset: The symptoms/episode began/occurred 2 day(s) ago. Possible causes: unknown. rn Associated signs and symptoms: Pertinent positives: belching, diarrhea, nausea, vomiting. Severity of symptoms: At their worst the symptoms were mild in the emergency department the symptoms are unchanged. The patient has experienced similar episodes in the past. Reports epigastric abd pain, nausea/vomiting/diarrhea, began 2 days ago, non-bloody, reports her acid reflux gets this bad. . Historical: - Allergies: 05:35 PENICILLINS; cc3 - Home Meds: 05:35 losartan 100 mg Oral tab once daily [Active]; metformin 500 mg Oral tab daily [Active]; cc3 - PMHx: 05:35 Diabetes - NIDDM; Hypertension; psoriasis; acid reflux; cc3 - PSHx: 05:35 Cholecystectomy; rotator cuff surgery of the right shoulder; kidney stone removal; cc3 right leg surgery; - Immunization history:: Adult Immunizations up to date. - Social history:: Smoking status: Patient/guardian denies using tobacco, never smoked. - Ebola Screening: : No symptoms or risks identified at this time. - Family history:: not pertinent. - Hospitalizations: : No recent hospitalization is reported. ROS: 06:17 Constitutional: Negative for fever, chills, and weight loss, Eyes: Negative for injury, rn pain, redness, and discharge, Neck: Negative for injury, pain, and swelling, Cardiovascular: Negative for chest pain, palpitations, and edema, Respiratory: Negative for shortness of breath, cough, wheezing, and pleuritic chest pain, Abdomen/GI: Negative for constipation, MS/Extremity: Negative for injury and deformity, Skin: Negative for injury, rash, and discoloration, Neuro: Negative for headache, weakness, numbness, tingling, and seizure. Exam: 06:17 Constitutional: This is a well developed, well nourished patient who is awake, alert, rn and in no acute distress. Head/Face: Normocephalic, atraumatic. Eyes: Pupils equal round and reactive to light, extra-ocular motions intact. Lids and lashes normal. Conjunctiva and sclera are non-icteric and not injected. Cornea within normal limits. Periorbital areas with no swelling, redness, or edema. ENT: dry MM Abdomen/GI: soft, mild periumbilical and epigastric tenderness Skin: Warm, dry MS/ Extremity: Pulses equal, no cyanosis. Neurovascular intact. Full, normal range of motion. Equal circumference. Neuro: Awake and alert, GCS 15, oriented to person, place, time, and situation. Cranial nerves II-XII grossly intact. Motor strength 5/5 in all extremities. Sensory grossly intact. Cerebellar exam normal. 10:25 Musculoskeletal/extremity: DVT Exam: No signs of deep vein thrombosis. no pain, no antonio swelling, no tenderness, negative Homans' sign noted on exam, no appreciated bluish discoloration, no erythema, no increased warmth. Vital Signs: 05:35 BP 133 / 75; Pulse 79; Resp 19 S; Temp 98.2(O); Pulse Ox 100% on R/A; Weight 112.49 kg cc3 (R); Height 5 ft. 6 in. (167.64 cm) (R); Pain 10/10; 07:15 BP 121 / 64; Pulse 62; Resp 18; Pulse Ox 100% on R/A; Pain 6/10; em 08:37 BP 116 / 71; Pulse 68; Resp 20; Pulse Ox 100% on R/A; em 09:30 BP 126 / 73; Pulse 64; Resp 18; Pulse Ox 99% on R/A; em 10:47 BP 118 / 68; Pulse 69; Resp 20; Pulse Ox 99% on R/A; em 05:35 Body Mass Index 40.03 (112.49 kg, 167.64 cm) cc3 MDM: 05:48 Patient medically screened. rn 10:24 Data reviewed: vital signs, nurses notes, lab test result(s), EKG, radiologic studies, antonio CT scan. 07/16 05:53 Order name: Basic Metabolic Panel 07/16 05:53 Order name: CBC with Diff 07/16 05:53 Order name: Hepatic Function 07/16 05:53 Order name: Lipase 07/16 06:48 Order name: CBC with Automated Diff; Complete Time: 06:50 EDMS 07/16 06:59 Order name: Basic Metabolic Panel; Complete Time: 07:03 EDMS 07/16 05:53 Order name: CT Abd/Pelvis - W/Contrast 07/16 06:59 Order name: Liver (Hepatic) Function; Complete Time: 07:03 EDMS 07/16 06:59 Order name: Lipase; Complete Time: 07:03 EDMS 07/16 08:39 Order name: Troponin (emerg Dept Use Only) [facility] 07/16 09:22 Order name: Troponin (Emerg Dept Use Only); Complete Time: 09:48 EDMS 07/16 05:53 Order name: IV Saline Lock; Complete Time: 06:37 07/16 05:53 Order name: Labs collected and sent; Complete Time: 06:37 07/16 07:08 Order name: Urine Dipstick-Ancillary (obtain specimen); Complete Time: 07:11 07/16 08:32 Order name: CT; Complete Time: 08:37 EDMS 07/16 08:39 Order name: EKG; Complete Time: 08:41 [facility] 07/16 08:39 Order name: EKG - Nurse/Tech; Complete Time: 08:59 [facility] Administered Medications: 06:00 Drug: GI Cocktail without - (Maalox Suspension 30 ml, Lidocaine Liquid 2 % 15 cc3 ml) Route: PO; 07:00 Follow up: Response: No adverse reaction cc3 07:11 Follow up: Response: No adverse reaction; Pain is decreased em 06:30 Drug: NS 0.9% 500 ml Route: IV; Rate: bolus; Site: right upper arm; cc3 07:11 Follow up: IV Status: Completed infusion; IV Intake: 500ml em 06:35 Drug: Zofran 4 mg Route: IVP; Site: right upper arm; cc3 07:11 Follow up: Response: No adverse reaction; Nausea is decreased em 06:40 Drug: Pepcid 20 mg Route: IVP; Site: right upper arm; cc3 07:00 Follow up: Response: No adverse reaction cc3 07:11 Follow up: Response: No adverse reaction em 08:50 Drug: Cipro 400 mg Volume: 200 ml; Route: IVPB; Infused Over: 60 mins; Site: right em upper arm; 10:00 Follow up: Response: No adverse reaction; IV Status: Completed infusion; IV Intake: em 100ml 08:50 Drug: NS 0.9% 500 ml Route: IV; Rate: bolus; Site: right upper arm; em 10:44 Follow up: IV Status: Completed infusion; IV Intake: 500ml em 10:01 Drug: Flagyl 500 mg Volume: 100 ml; Route: IVPB; Rate: 200 ml/hr; Infused Over: 30 em mins; Site: right upper arm; 10:45 Follow up: Response: No adverse reaction; IV Status: Completed infusion; IV Intake: em 100ml Disposition: 07/16/18 08:41 Discharged to Home. Impression: Vomiting, Diarrhea, unspecified, Left sided colitis - proctitis. - Condition is Stable. - Discharge Instructions: Food Choices to Help Relieve Diarrhea, Adult, Diarrhea, Adult, Nausea and Vomiting, Adult, Nausea and Vomiting, Adult, [id number], Diarrhea, Adult, Qtnh-[id number]. - Prescriptions for Bentyl 20 mg Oral Tablet - take 1 tablet by ORAL route every 6 hours As needed; 20 tablet. Flagyl 500 mg Oral Tablet - take 1 tablet by ORAL route every 8 hours for 7 days; 21 tablet. Pepcid 20 mg Oral Tablet - take 1 tablet by ORAL route every 12 hours for 10 days; 20 tablet. Zofran 4 mg Oral Tablet - take 1 tablet by ORAL route every 12 hours As needed; 20 tablet. Cipro 500 mg Oral Tablet - take 1 tablet by ORAL route every 12 hours for 7 days; 14 tablet. - Medication Reconciliation Form, Thank You Letter, Antibiotic Education, Prescription Opioid Use, Family Work Release form. - Follow up: Private Physician; When: 2 - 3 days; Reason: Recheck today's complaints, Continuance of care, Re-evaluation by your physician. - Problem is new. - Symptoms have improved. Signatures: Dispatcher [employer] Behzad Kenny MD MD cha Munoz, Edgar, SENIOR ENLISTED ADVISOR SENIOR ENLISTED ADVISOR em Yuan Damon MD MD rn Cordel, Charlene cc3 Corrections: (The following items were deleted from the chart) 10:47 08:41 07/16/2018 08:41 Discharged to Home. Impression: Vomiting; Diarrhea, unspecified; em Left sided colitis - proctitis. Condition is Stable. Forms are Family Work Release, Medication Reconciliation Form, Thank You Letter, Antibiotic Education, Prescription Opioid Use. Follow up: Private Physician; When: 2 - 3 days; Reason: Recheck today's complaints, Continuance of care, Re-evaluation by your physician. Problem is new. Symptoms have improved. antonio
--- NOTE | 2018-07-16 08:42 | ER ---
Nurse's Notes [facility] Name: Nanci Barros Age: 63 yrs Sex: Female : 1955 Arrival Date: 07/16/2018 Time: 05:29 Bed 17 Private MD: Diagnosis: Vomiting;Diarrhea, unspecified;Left sided colitis-proctitis Presentation: 07/16 05:35 Presenting complaint: Patient states: abdominal pain on all quadrants since 2 days; cc3 passed watery and yellowish in color stool today at 0400H in the morning; vomiting episode once today morning as well. Transition of care: patient was not received from another setting of care. Onset of symptoms was July 16, 2018. Risk Assessment: Do you want to hurt yourself or someone else? Patient reports no desire to harm self or others. Initial Sepsis Screen: Does the patient meet any 2 criteria? No. Patient's initial sepsis screen is negative. Does the patient have a suspected source of infection? No. Patient's initial sepsis screen is negative. Care prior to arrival: None. 05:35 Method Of Arrival: Ambulatory cc3 05:35 Acuity: GET 3 cc3 Triage Assessment: 05:35 General: Appears in no apparent distress. uncomfortable, Behavior is calm, cooperative, cc3 appropriate for age. Pain: Complains of pain in abdomen Pain currently is 10 out of 10 on a pain scale. EENT: No signs and/or symptoms were reported regarding the EENT system. Neuro: Level of Consciousness is awake, alert, obeys commands, Oriented to person, place, time, situation, Appropriate for age. Cardiovascular: Denies chest pain, Patient's skin is warm and dry. Respiratory: Airway is patent Respiratory effort is even, unlabored, Respiratory pattern is regular, symmetrical. GI: Reports lower abdominal pain, upper abdominal pain, diarrhea, nausea, vomiting. : No signs and/or symptoms were reported regarding the genitourinary system. Derm: No signs and/or symptoms reported regarding the dermatologic system. Musculoskeletal: Circulation, motion, and sensation intact. Range of motion: intact in all extremities. Historical: - Allergies: 05:35 PENICILLINS; cc3 - Home Meds: 05:35 losartan 100 mg Oral tab once daily [Active]; metformin 500 mg Oral tab daily [Active]; cc3 - PMHx: 05:35 Diabetes - NIDDM; Hypertension; psoriasis; acid reflux; cc3 - PSHx: 05:35 Cholecystectomy; rotator cuff surgery of the right shoulder; kidney stone removal; cc3 right leg surgery; - Immunization history:: Adult Immunizations up to date. - Social history:: Smoking status: Patient/guardian denies using tobacco, never smoked. - Ebola Screening: : No symptoms or risks identified at this time. - Family history:: not pertinent. - Hospitalizations: : No recent hospitalization is reported. Screenin:35 Abuse screen: Denies threats or abuse. Denies injuries from another. Nutritional cc3 screening: No deficits noted. Tuberculosis screening: No symptoms or risk factors identified. Fall Risk Ambulatory Aid- None/Bed Rest/Nurse Assist (0 pts). Gait- Normal/Bed Rest/Wheelchair (0 pts) Mental Status- Oriented to own ability (0 pts). Assessment: 05:35 General: see triage assessment. cc3 06:40 Reassessment: Patient finished her oral contrast, CT scan department informed. cc3 08:37 Reassessment: Patient appears in no apparent distress at this time. Patient and/or em family updated on plan of care and expected duration. Pain level reassessed. Patient is alert, oriented x 3, equal unlabored respirations, skin warm/dry/pink. pending results. 09:00 Reassessment: pending completion of IV ABX before pt is discharged. em 10:00 Reassessment: Patient appears in no apparent distress at this time. Patient and/or em family updated on plan of care and expected duration. Pain level reassessed. Patient is alert, oriented x 3, equal unlabored respirations, skin warm/dry/pink. Patient states feeling better. 10:46 Reassessment: Patient appears in no apparent distress at this time. Patient and/or em family updated on plan of care and expected duration. Pain level reassessed. Patient is alert, oriented x 3, equal unlabored respirations, skin warm/dry/pink. Patient states feeling better. Patient states symptoms have improved. Vital Signs: 05:35 BP 133 / 75; Pulse 79; Resp 19 S; Temp 98.2(O); Pulse Ox 100% on R/A; Weight 112.49 kg cc3 (R); Height 5 ft. 6 in. (167.64 cm) (R); Pain 10/10; 07:15 BP 121 / 64; Pulse 62; Resp 18; Pulse Ox 100% on R/A; Pain 6/10; em 08:37 BP 116 / 71; Pulse 68; Resp 20; Pulse Ox 100% on R/A; em 09:30 BP 126 / 73; Pulse 64; Resp 18; Pulse Ox 99% on R/A; em 10:47 BP 118 / 68; Pulse 69; Resp 20; Pulse Ox 99% on R/A; em 05:35 Body Mass Index 40.03 (112.49 kg, 167.64 cm) cc3 ED Course: 05:29 Patient arrived in ED. ds1 05:31 Joe Staples, RN is Primary Nurse. jb4 05:35 Arm band placed on right wrist. Patient notified of wait time. cc3 05:35 Patient has correct armband on for positive identification. Bed in low position. Call cc3 light in reach. Side rails up X 1. Pulse ox on. NIBP on. 05:46 Triage completed. cc3 05:48 Yuan Damon MD is Attending Physician. rn 06:30 Initial lab(s) drawn, by ak, sent to lab. Inserted 18 gauge 10 cm midline to right fc upper basilic vein on first attempt. Line with good blood return and flushes well. Pt tolerated it well. 07:15 Attending Physician role handed off by Yuan Damon MD antonio 07:15 Behzad Nichole MD is Attending Physician. antonio 08:04 CT completed. Patient tolerated procedure well. Patient moved back from CT. bq 10:46 No provider procedures requiring assistance completed. IV discontinued, intact, em bleeding controlled, No redness/swelling at site. Pressure dressing applied. Administered Medications: 06:00 Drug: GI Cocktail without - (Maalox Suspension 30 ml, Lidocaine Liquid 2 % 15 cc3 ml) Route: PO; 07:00 Follow up: Response: No adverse reaction cc3 07:11 Follow up: Response: No adverse reaction; Pain is decreased em 06:30 Drug: NS 0.9% 500 ml Route: IV; Rate: bolus; Site: right upper arm; cc3 07:11 Follow up: IV Status: Completed infusion; IV Intake: 500ml em 06:35 Drug: Zofran 4 mg Route: IVP; Site: right upper arm; cc3 07:11 Follow up: Response: No adverse reaction; Nausea is decreased em 06:40 Drug: Pepcid 20 mg Route: IVP; Site: right upper arm; cc3 07:00 Follow up: Response: No adverse reaction cc3 07:11 Follow up: Response: No adverse reaction em 08:50 Drug: Cipro 400 mg Volume: 200 ml; Route: IVPB; Infused Over: 60 mins; Site: right em upper arm; 10:00 Follow up: Response: No adverse reaction; IV Status: Completed infusion; IV Intake: em 100ml 08:50 Drug: NS 0.9% 500 ml Route: IV; Rate: bolus; Site: right upper arm; em 10:44 Follow up: IV Status: Completed infusion; IV Intake: 500ml em 10:01 Drug: Flagyl 500 mg Volume: 100 ml; Route: IVPB; Rate: 200 ml/hr; Infused Over: 30 em mins; Site: right upper arm; 10:45 Follow up: Response: No adverse reaction; IV Status: Completed infusion; IV Intake: em 100ml Intake: 07:11 IV: 500ml; Total: 500ml. em 10:00 IV: 100ml; Total: 600ml. em 10:44 IV: 500ml; Total: 1100ml. em 10:45 IV: 100ml; Total: 1200ml. em Outcome: 08:41 Discharge ordered by . [facility] 10:46 Discharged to home ambulatory. em 10:46 Condition: good 10:46 Discharge instructions given to patient, Instructed on discharge instructions, follow up and referral plans. medication usage, Demonstrated understanding of instructions, follow-up care, medications, Prescriptions given X 5 10:47 Patient left the ED. em Signatures: Behzad Nichole MD MD cha Quilty, Betty bq Chretien, Felicia RN RN Daniel Duran, HOB MACHINE OPERATOR HOB MACHINE OPERATOR em Kristen Zaragoza ds1 Yuan Damon MD MD rn Bryson, James, RN RN jb4 eDe Fong cc3 Corrections: (The following items were deleted from the chart) 07:19 07:15 BP 98 / 68; Pulse 62bpm; Resp 18bpm; Pulse Ox 100% RA; Pain 6/10; em em
[2018-07-16] MEDS ORDERED: CIPROFLOXACIN 400mg IV 400 MG/200 ML BAG IV ONE (08:58)
[2018-07-16] MEDS ORDERED: METRONIDAZOLE 500mg IVPB 500 MG/100 ML BAG IV ONE (08:58)
[2018-07-16 10:53] VITALS: TEMP 98.2
[2018-07-16 10:57] VITALS: O2SAT 99
[2018-07-16 10:58] VITALS: BP 118/68
--- NOTE | 2018-07-17 08:51 | EKG ---
Test Date: 2018-07-16 Test Time: 08:54:46 [place]: MEASUREMENT RESULTS: Intervals: Rate: 68 CO: 124 QRSD: 84 QT: 390 QTc: 414 Benedict[place]: P: 26 CO: 124 QRS: 23 T: 23 INTERPRETIVE STATEMENTS: Normal sinus rhythm Normal ECG Compared to ECG 08/24/2016 09:59:35 Left ventricular hypertrophy no longer present Electronically Signed On 07-17-18 08:50:06 SPANISH TRANSLATOR by Hay Cline
== END 2018-07-16 10:47 | disposition home or self-care (01) ==
LOC: ER 05:28
DX: K52.9 Noninfective gastroenteritis and colitis, unspecified (principal); K62.89 Other specified diseases of anus and rectum; R11.2 Nausea with vomiting, unspecified; R19.7 Diarrhea, unspecified; E11.9 Type 2 diabetes mellitus without complications; I10 Essential (primary) hypertension; Z79.84 Long term (current) use of oral hypoglycemic drugs; Z88.0 Allergy status to penicillin
CPT/HCPCS: 36415; 74177; 80048; 80076; 83690; 84484; 85025; 93005; J0744; J2405; Q9967; 96361; 96365; 96367; 96375; 99284

== ENCOUNTER 2018-10-18 12:00 | Emergency (ER) | payer MEDICARE ==
--- OUTSIDE RECORDS SUMMARY | 2018-10-18 12:02 | XMS REPORT ---
:1955 [facility] Address [address] [place] [address] Care Team Providers Name Role Phone Unavailable Unavailable Unavailable Payers Payer Name Policy Type Policy Number Effective Date Expiration Date Problems This patient has no known problems. Allergies, Adverse Reactions, Alerts Allergy Name Allergy Status Severity Reaction(s) Onset Inactive Treating Comments Type Date Date Clinician Penicillins DA Active AR 2014-02 00:00:0 0 Medications This patient has [...] NEGATIVE Leuk/mcL NEGATIVE DRUGS OF ABUSE SCREEN [id number] 13:56:00 Test Item Value Reference Range Comments [...] code=METHAURN) NEGATIVE SCcutoff <300 NG/ML RULE OUT AR [id number] 10:28:00 Test Item Value Reference Range Comments [...] numerical results may varyby method. BASIC METABOLIC [id number] 10:24:00 Test Item Value Reference Range Comments [...] (test code=CA) 9.0 MG/DL 8.5-10.1 HEPATIC FUNCTION [id number] 10:24:00 Test Item Value Reference Range Comments TOTAL PROTEIN (test code=PROT) 7.1 G/DL 6.4-8.2 ALBUMIN (test code=ALB) 3.6 G/DL 3.4-5.0 BILIRUBIN TOTAL (test code=BILT) 0.50 MG/DL 0.2-1.2 BILIRUBIN DIRECT (test code=BILD) 0.10 MG/DL 0.00-0.30 BILIRUBIN INDIRECT (test code=BILIND) 0.40 MG/DL 0.2-1.2 SGOT/AST (test code=AST) 22 Unit/L 15-37 SGPT/ALT (test code=ALT) 38 Unit/L 12-78 ALKALINE PHOSPHATASE TOTAL (test code=ALKP) 78 Unit/L 45-117 [id number] 10:24:00 Test Item Value Reference Range Comments LIPASE (test code=LIP) 93 Unit/L 114-286 URINALYSIS [id number] 10:11:00 Test Item Value Reference Range Comments [...] Leuk/mcL NEGATIVE code=LEUU) DRUGS OF ABUSE SCREEN [id number] 10:11:00 Test Item Value Reference Range Comments [...] (test code=METHAURN) SCcutoff <300 NG/ML CBC W/AUTO [id number] 10:07:00 Test Item Value Reference Range Comments [...] NO DIFF/SCN CRITERIA - XR CHEST 1 [id number] 09:28:00 Name: NINA NEELY [facility] Hometown : 1955 Age/S: 63 / F [id number] Unit #: [id number] Loc: [place] [address] Phys: Nash Osei MD Acct: [id number] Dis Date: Status: REG ER PHONE #: [phone] Exam Date: 07/12/2018919 FAX #: Reason: cp EXAMS: CPT : [id number] XR CHEST 1 V 32222 Fluoro Time: DAP (Gy m2): Air Kerma [...] PAGE 1 Signed Report Name: NINA NEELY [facility] : 1955 Age/S: 63 / F [id number] Unit #: [id number] Loc: [place] [address] Phys: Nash Osei MD Acct: [id number] Dis Date: Status: REG ER PHONE #: [phone] Exam Date: 2018 FAX #: Reason: cp EXAMS: CPT: [id number] XR CHEST 1 V 30334 Fluoro Time: DAP (Gy m2): Air Kerma (mGy): <Continued> Technologist: Breanna Kapadia, RT(R); Aleks Yan RT(R)(MR) [facility] Date/Time: 2018 (0928) [email or web address] Orig Print D/T: S: 07/12/2018 (0949 ) PAGE 2 Signed Report
--- OUTSIDE RECORDS SUMMARY | 2018-10-18 12:03 | XMS REPORT | Summary of Care ---
:1955 Author Name Corrie Colbert M.A. Address Unavailable Unavailable , Care Team Providers Name Role Phone LIA Young, GALINDO Unavailable Unavailable LAZARO Young, DALE Unavailable Unavailable COMPA AYERS, THIEN Barnes Unavailable Unavailable SUZETTE AYERS, COLTEN KUMARI Unavailable Unavailable DANILO AYERS, ALEJANDRINA Hickey Unavailable Unavailable Unavailable Unavailable Unavailable Functional Status [...] Details Losartan Potassium TABS Refills: 0 Active metFORMIN HCl - 500 MG Oral Tablet Refills: 0 Active Nystatin-Triamcinolone 253066-2.1 UNIT/GM-% External Cream APPLY 2 GM Twice [...] smoker Vital Signs Date Test Result Details [id number] Weight 241.375 lb Status: Body Mass Index Calculated 38.96 kg/m2 Status: Body Surface Area Calculated 2.17 m2 Status: Height 66 in Status: Results Date Description Value Details Results not documented Plan of Care Name Dates Details Planned Observations Planned Goals not documented Instructions Name Dates Details Instructions not documented Encounters Appointment; GALINDO FITZGERALD M.D. On: 24-Mar-2018 9:00 Encounter Diagnosis: Problem not documented Appointment; GALINDO FITZGERALD M.D. On: 25-Aug-2018 9:15 Encounter Diagnosis: Problem not documented Appointment; GALINDO FITZGERALD M.D. On: 01-Sep-2018 9:30 Encounter Diagnosis: Problem not documented
--- NOTE | 2018-10-18 14:00 | RAD REPORT ---
EXAM DESCRIPTION: RAD - Chest Single View - 10/18/2018 1:56 pm CLINICAL HISTORY: COUGH Chest pain. COMPARISON: Chest Pa And Lat (2 Views) dated 03/24/2017; Chest Single View dated 08/24/2016; Chest Sing le View dated 08/08/2016; CHEST SINGLE VIEW dated 08/26/2014 FINDINGS: Portable technique limits examination quality. The lungs are grossly clear. The heart is normal in size. No displaced fractures. IMPRESSION: No acute intrathoracic process suspected.
[2018-10-18] MEDS ORDERED: NA CHLORIDE 0.9% 2,000 ML ONE (14:06)
[2018-10-18 14:07] LABS: Absolute Lymphocytes (CBC) 0.5 K/uL (0.7-4.9); Absolute Monocytes 0.3 K/uL (0.1-1.3); Absolute Neutrophil 4.6 K/uL (1.8-8.0); Basophils % 0.3 % (0-1.3); Eosinophils % 2.7 % (0-4.4); Hematocrit 36.7 % (36.0-45.0); Lymphocytes % 8.4 % (15.3-44.8); MPV 8.2 fL (7.6-11.3); RBC Red Blood Cell Count 4.15 M/uL (3.86-4.86)
[2018-10-18 14:08] LABS: Protime INR 1.03
[2018-10-18 14:23] LABS: ALT/SGPT 33 U/L (12-78); AST/SGOT 24 U/L (15-37); Albumin 3.9 g/dL (3.4-5.0); Alkaline Phosphatase 92 U/L (45-117); BUN Blood Urea Nitrogen 16 mg/dL (7-18); Bicarbonate 27 mmol/L (21-32); Bilirubin Direct 0.1 mg/dL (0-0.2); Bilirubin Total 0.5 mg/dL (0.2-1.0); Glucose Level 97 mg/dL (74-106); Lipase 110 U/L (73-393); Magnesium 1.8 mg/dL (1.8-2.4); NT PRO-BNP 52 pg/mL (<125); Potassium 4.2 mmol/L (3.5-5.1); Protein, Total 7.7 g/dL (6.4-8.2); Sodium Level 139 mmol/L (136-145); Troponin (Emerg Dept Use Only) < 0.02 ng/mL (0.0-0.045)
[2018-10-18 14:32] LABS: Urine Blood NEGATIVE (NEG); Urine Glucose NEGATIVE (NEG); Urine Protein NEGATIVE (NEG); Urine pH 5.5 (5.0-7.0)
[2018-10-18] MEDS ORDERED: MAGNE/ALUM HYDROXD 30 ML UCUP ONE (14:46)
[2018-10-18] MEDS ORDERED: LIDOCAINE VISCOUS 2% SOLN 15 ML UDC ONE (14:46)
--- NOTE | 2018-10-18 15:11 | EDPHYS ---
Physician Documentation [facility] Name: Nanci Barros Age: 63 yrs Sex: Female : 1955 Arrival Date: 10/18/2018 Time: 12:04 Bed 25 Private MD: ED Physician Behzad Nichole HPI: 10/18 14:09 This 63 yrs old Black Female presents to ER via Ambulatory with complaints of Pain All antonio Over. 14:09 The patient presents with abdominal pain in the epigastric area, gerd. Onset: The antonio symptoms/episode began/occurred 2 day(s) ago. The patient presents with urinary symptoms, dysuria, frequency, urgency. Onset: The symptoms/episode began/occurred 2 day(s) ago. Modifying factors: The symptoms are alleviated by nothing, the symptoms are aggravated by nothing. Associated signs and symptoms: The patient has no apparent associated signs or symptoms. Severity of symptoms: At their worst the symptoms were mild, in the emergency department the symptoms are unchanged. Historical: - Allergies: 12:26 PENICILLINS; aa5 - Home Meds: 12:26 metformin 500 mg Oral tab daily [Active]; telmisartan-hydrochlorothiazid 80-25 mg oral aa5 tab once daily [Active]; amlodipine 5 mg tab 1 tab once daily [Active]; nitrofurantoin macrocrystal 100 mg Oral cap [Active]; - PMHx: 12:26 acid reflux; Diabetes - NIDDM; Hypertension; psoriasis; aa5 - PSHx: 12:26 Cholecystectomy; rotator cuff surgery of the right shoulder; kidney stone removal; aa5 right leg surgery; - Immunization history:: Flu vaccine is not up to date. - Social history:: Smoking status: Patient/guardian denies using tobacco, never smoked. - Ebola Screening: : No symptoms or risks identified at this time. - Family history:: not pertinent. ROS: 14:09 Constitutional: Negative for fever, chills, and weight loss, Eyes: Negative for injury, antonio pain, redness, and discharge, ENT: Negative for injury, pain, and discharge, Neck: Negative for injury, pain, and swelling, Cardiovascular: Negative for chest pain, palpitations, and edema, Respiratory: Negative for shortness of breath, cough, wheezing, and pleuritic chest pain, Back: Negative for injury and pain, : Negative for injury, bleeding, discharge, and swelling, MS/Extremity: Negative for injury and deformity, Skin: Negative for injury, rash, and discoloration, Psych: Negative for depression, anxiety, suicide ideation, homicidal ideation, and hallucinations, Allergy/Immunology: Negative for hives, rash, and allergies, Endocrine: Negative for neck swelling, polydipsia, polyuria, polyphagia, and marked weight changes. 14:09 Abdomen/GI: Positive for abdominal pain, nausea and vomiting. Exam: 14:09 Constitutional: This is a well developed, well nourished patient who is awake, alert, antonio and in no acute distress. Head/Face: Normocephalic, atraumatic. Eyes: Pupils equal round and reactive to light, extra-ocular motions intact. Lids and lashes normal. Conjunctiva and sclera are non-icteric and not injected. Cornea within normal limits. Periorbital areas with no swelling, redness, or edema. ENT: Nares patent. No nasal discharge, no septal abnormalities noted. Tympanic membranes are normal and external auditory canals are clear. Oropharynx with no redness, swelling, or masses, exudates, or evidence of obstruction, uvula midline. Mucous membranes moist. Neck: Trachea midline, no thyromegaly or masses palpated, and no cervical lymphadenopathy. Supple, full range of motion without nuchal rigidity, or vertebral point tenderness. No Meningismus. Chest/axilla: Normal chest wall appearance and motion. Nontender with no deformity. No lesions are appreciated. Cardiovascular: Regular rate and rhythm with a normal S1 and S2. No gallops, murmurs, or rubs. Normal PMI, no JVD. No pulse deficits. Respiratory: Lungs have equal breath sounds bilaterally, clear to auscultation and percussion. No rales, rhonchi or wheezes noted. No increased work of breathing, no retractions or nasal flaring. Back: No spinal tenderness. No costovertebral tenderness. Full range of motion. Skin: Warm, dry with normal turgor. Normal color with no rashes, no lesions, and no evidence of cellulitis. MS/ Extremity: Pulses equal, no cyanosis. Neurovascular intact. Full, normal range of motion. Neuro: Awake and alert, GCS 15, oriented to person, place, time, and situation. Cranial nerves II-XII grossly intact. Motor strength 5/5 in all extremities. Sensory grossly intact. Cerebellar exam normal. Normal gait. Psych: Awake, alert, with orientation to person, place and time. Behavior, mood, and affect are within normal limits. 14:09 Abdomen/GI: Inspection: abdomen appears normal, Bowel sounds: normal, Palpation: mild abdominal tenderness, in the suprapubic area and right lower quadrant, Liver: no appreciated palpable abnormalities, Hernia: not appreciated. Vital Signs: 12:27 BP 129 / 66; Pulse 105; Resp 18 S; Temp 99.4(O); Pulse Ox 98% on R/A; Weight 110.22 kg aa5 (R); Height 5 ft. 6 in. (167.64 cm) (R); Pain 10/10; 15:22 BP 123 / 57 RA Supine (auto/lg); Pulse 89; Pulse Ox 100% on R/A; jp3 15:24 BP 126 / 70 RA Sitting (auto/lg); Pulse 97; Pulse Ox 100% on R/A; jp3 15:26 BP 126 / 71; Pulse 102; Pulse Ox 100% on R/A; jp3 15:39 BP 124 / 60; Pulse 99; Resp 16; Temp 99.0(O); Pulse Ox 99% on R/A; Pain 3/10; ls4 12:27 Body Mass Index 39.22 (110.22 kg, 167.64 cm) aa5 15:22 pt states "I feel alright" jp3 15:24 pt states "I feel alright; same as supine position." jp3 15:26 pt states "I feel alright; same as supine and sitting." jp3 MDM: 13:05 Patient medically screened. [facility] 14:09 Data reviewed: vital signs, nurses notes, lab test result(s), EKG, radiologic studies, antonio plain films. 10/18 13:11 Order name: Basic Metabolic Panel; Complete Time: 14:53 [facility] 10/18 13:11 Order name: CBC with Diff; Complete Time: 14:53 [facility] 10/18 13:11 Order name: LFT's; Complete Time: 14:53 [facility] 10/18 13:11 Order name: Magnesium; Complete Time: 14:53 [facility] 10/18 13:11 Order name: NT PRO-BNP; Complete Time: 14:53 [facility] 10/18 13:11 Order name: PT-INR; Complete Time: 14:53 [facility] 10/18 13:11 Order name: Troponin (emerg Dept Use Only); Complete Time: 14:53 [facility] 10/18 13:11 Order name: XRAY Chest (1 view); Complete Time: 14:53 [facility] 10/18 13:11 Order name: Urine Culture [facility] 10/18 13:11 Order name: Procalcitonin; Complete Time: 15:09 [facility] 10/18 13:11 Order name: Lactate; Complete Time: 14:53 [facility] 10/18 13:11 Order name: Blood Culture Adult (2) [facility] 10/18 13:11 Order name: Lipase; Complete Time: 14:53 [facility] 10/18 13:37 Order name: Urine Dipstick--Ancillary (enter results) 10/18 13:02 Order name: Urine Dipstick-Ancillary (obtain specimen); Complete Time: 13:35 ls4 10/18 13:11 Order name: EKG; Complete Time: 13:14 [facility] 10/18 13:11 Order name: Cardiac monitoring; Complete Time: 14:19 [facility] 10/18 13:11 Order name: EKG - Nurse/Tech; Complete Time: 14:19 [facility] 10/18 13:11 Order name: IV Saline Lock; Complete Time: 14:19 [facility] 10/18 13:11 Order name: Labs collected and sent; Complete Time: 14:19 [facility] 10/18 13:11 Order name: O2 Per Protocol; Complete Time: 14:19 [facility] 10/18 13:11 Order name: O2 Sat Monitoring; Complete Time: 14:18 [facility] 10/18 13:11 Order name: Urine Dipstick-Ancillary (obtain specimen); Complete Time: 13:35 [facility] 10/18 14:54 Order name: Orthostatics; Complete Time: 15:30 [facility] Administered Medications: 13:50 Drug: NS 0.9% 1000 ml Route: IV; Rate: 125 ml/hr; Site: left antecubital; ls4 15:32 Follow up: IV Status: Completed infusion; IV Intake: 300ml ls4 14:24 Drug: NS 0.9% 500 ml Route: IV; Rate: bolus; Site: left antecubital; ls4 14:54 Follow up: IV Status: Completed infusion; IV Intake: 500ml ls4 14:37 Drug: GI Cocktail without - (Maalox Suspension 30 ml, Lidocaine Liquid 2 % 15 ls4 ml) Route: PO; 14:49 Follow up: Response: No adverse reaction; Marked relief of symptoms ls4 15:20 Drug: Bactrim (160 mg-800 mg (DS) 1 tablet Route: PO; ls4 15:31 Follow up: Response: No adverse reaction; Marked relief of symptoms ls4 15:20 Drug: ProTONIX 40 mg Route: IVP; Site: left antecubital; ls4 15:49 Follow up: Response: No adverse reaction; Marked relief of symptoms ls4 Disposition: 10/18/18 15:10 Discharged to Home. Impression: Dysuria, Weakness, Malaise and fatigue, Gastro-esophageal reflux disease. - Condition is Stable. - Discharge Instructions: Dysuria, Weakness, Fatigue, Weakness, [id number]. - Prescriptions for Zofran 4 mg Oral Tablet - take 1 tablet by ORAL route every 12 hours As needed; 14 tablet. Bactrim DS 800- 160 mg Oral Tablet - take 1 tablet by ORAL route every 12 hours for 7 days; 14 tablet. Protonix 40 mg Oral Tablet, Delayed Release (E.C.) - take 1 tablet by ORAL route once daily; 14 tablet. - Medication Reconciliation Form, Thank You Letter, Antibiotic Education, Prescription Opioid Use form. - Follow up: Private Physician; When: 2 - 3 days; Reason: Recheck today's complaints, Continuance of care, Re-evaluation by your physician. - Problem is new. - Symptoms have improved. Signatures: Dispatcher [employer] EDIN Behzad Nichole MD MD cha Calderon, Audri RN RN aa5 Alysia Landers RN RN ls4 Corrections: (The following items were deleted from the chart) 15:50 15:10 10/18/2018 15:10 Discharged to Home. Impression: Dysuria; Weakness; Malaise and ls4 fatigue; Gastro-esophageal reflux disease. Condition is Stable. Discharge Instructions: Dysuria, Weakness, Fatigue, Weakness, [id number]. Prescriptions for Zofran 4 mg Oral Tablet - take 1 tablet by ORAL route every 12 hours As needed; 14 tablet, Bactrim DS 800-160 mg Oral Tablet - take 1 tablet by ORAL route every 12 hours for 7 days; 14 tablet. and Forms are Medication Reconciliation Form, Thank You Letter, Antibiotic Education, Prescription Opioid Use. Follow up: Private Physician; When: 2 - 3 days; Reason: Recheck today's complaints, Continuance of care, Re-evaluation by your physician. Problem is new. Symptoms have improved. antonio
--- NOTE | 2018-10-18 15:11 | ER ---
Nurse's Notes [facility] Name: Nanci Barros Age: 63 yrs Sex: Female : 1955 Arrival Date: 10/18/2018 Time: 12:04 Bed 25 Private MD: Diagnosis: Dysuria;Weakness;Malaise and fatigue;Gastro-esophageal reflux disease Presentation: 10/18 12:20 Presenting complaint: Patient states: "my whole body hurts". Pt reports pain began aa5 Tuesday. Pt states "My doctor gave me antibiotics for a UTI yesterday but I am just hurting all over". Pt also reports nausea. 12:20 Transition of care: patient was not received from another setting of care. Onset of aa5 symptoms was September 2018. Risk Assessment: Do you want to hurt yourself or someone else? Patient reports no desire to harm self or others. Care prior to arrival: None. 12:20 Acuity: GET 3 aa5 12:20 Method Of Arrival: Ambulatory aa5 13:02 Initial Sepsis Screen: Does the patient meet any 2 criteria? HR > 90 bpm. No. Patient's ls4 initial sepsis screen is negative. Does the patient have a suspected source of infection? Yes: Dysuria/Frequency/Urgency/UTI. Triage Assessment: 13:02 General: Appears uncomfortable, obese, Behavior is calm, cooperative. Pain: Complains ls4 of pain in abdomen and right lower quadrant and suprapubic area Pain currently is 10 out of 10 on a pain scale. Neuro: No deficits noted. Respiratory: Airway is patent Respiratory effort is even, unlabored, Respiratory pattern is regular, Breath sounds are clear bilaterally. Historical: - Allergies: 12:26 PENICILLINS; aa5 - Home Meds: 12:26 metformin 500 mg Oral tab daily [Active]; telmisartan-hydrochlorothiazid 80-25 mg oral aa5 tab once daily [Active]; amlodipine 5 mg tab 1 tab once daily [Active]; nitrofurantoin macrocrystal 100 mg Oral cap [Active]; - PMHx: 12:26 acid reflux; Diabetes - NIDDM; Hypertension; psoriasis; aa5 - PSHx: 12:26 Cholecystectomy; rotator cuff surgery of the right shoulder; kidney stone removal; aa5 right leg surgery; - Immunization history:: Flu vaccine is not up to date. - Social history:: Smoking status: Patient/guardian denies using tobacco, never smoked. - Ebola Screening: : No symptoms or risks identified at this time. - Family history:: not pertinent. Screenin:02 Abuse screen: Denies threats or abuse. Denies injuries from another. Nutritional ls4 screening: No deficits noted. Tuberculosis screening: No symptoms or risk factors identified. Fall Risk None identified. Assessment: 13:43 General: Appears uncomfortable, obese, Behavior is calm, cooperative. Neuro: Level of ls4 Consciousness is awake, alert, obeys commands. Cardiovascular: Capillary refill < 3 seconds Patient's skin is warm and dry. Chest pain is denied. Respiratory: Airway is patent Respiratory effort is even, unlabored, Respiratory pattern is regular. : Reports burning with urination, urgency, urinary frequency. Derm: Skin is pink, warm \\T\\ dry. Musculoskeletal: Circulation, motion, and sensation intact. Capillary refill < 3 seconds, Range of motion: intact in all extremities. 14:45 Reassessment: Patient and/or family updated on plan of care and expected duration. Pain ls4 level reassessed. Patient is alert, oriented x 3, equal unlabored respirations, skin warm/dry/pink. Patient states feeling better. 15:49 Reassessment: Patient and/or family updated on plan of care and expected duration. Pain ls4 level reassessed. Patient is alert, oriented x 3, equal unlabored respirations, skin warm/dry/pink. Patient states feeling better. Patient states symptoms have improved. Vital Signs: 12:27 BP 129 / 66; Pulse 105; Resp 18 S; Temp 99.4(O); Pulse Ox 98% on R/A; Weight 110.22 kg aa5 (R); Height 5 ft. 6 in. (167.64 cm) (R); Pain 10/10; 15:22 BP 123 / 57 RA Supine (auto/lg); Pulse 89; Pulse Ox 100% on R/A; jp3 15:24 BP 126 / 70 RA Sitting (auto/lg); Pulse 97; Pulse Ox 100% on R/A; jp3 15:26 BP 126 / 71; Pulse 102; Pulse Ox 100% on R/A; jp3 15:39 BP 124 / 60; Pulse 99; Resp 16; Temp 99.0(O); Pulse Ox 99% on R/A; Pain 3/10; ls4 12:27 Body Mass Index 39.22 (110.22 kg, 167.64 cm) aa5 15:22 pt states "I feel alright" jp3 15:24 pt states "I feel alright; same as supine position." jp3 15:26 pt states "I feel alright; same as supine and sitting." jp3 ED Course: 12:04 Patient arrived in ED. mr 12:23 Arm band placed on. aa5 12:24 Triage completed. aa5 13:00 Alysia Landers, RN is Primary Nurse. ls4 13:02 Patient has correct armband on for positive identification. Allergy band placed. Bed in ls4 low position. Call light in reach. Side rails up X 1. personnel monitor on. Pulse ox on. NIBP on. Warm blanket given. Verbal reassurance given. 13:02 No provider procedures requiring assistance completed. ls4 13:05 Behzad Nichole MD is Attending Physician. [facility] 13:20 Urine collected: clean catch specimen, clear, yolande colored, Amount Voided: 30mL. jp3 13:30 EKG done, by nuclear medical tech. reviewed by Behzad Nichole MD. 3 13:35 Urine Culture Sent. jp3 13:40 Initial lab(s) drawn, by tx, sent to lab. Inserted saline lock: 20 gauge in left ls4 antecubital area, using aseptic technique. Blood collected. 13:55 X-ray completed. Portable x-ray completed in exam room. Patient tolerated procedure mh1 well. 13:56 XRAY Chest (1 view) In Process Unspecified. EDMS 15:49 IV discontinued, intact, bleeding controlled, No redness/swelling at site. Pressure ls4 dressing applied. Administered Medications: 13:50 Drug: NS 0.9% 1000 ml Route: IV; Rate: 125 ml/hr; Site: left antecubital; ls4 15:32 Follow up: IV Status: Completed infusion; IV Intake: 300ml ls4 14:24 Drug: NS 0.9% 500 ml Route: IV; Rate: bolus; Site: left antecubital; ls4 14:54 Follow up: IV Status: Completed infusion; IV Intake: 500ml ls4 14:37 Drug: GI Cocktail without - (Maalox Suspension 30 ml, Lidocaine Liquid 2 % 15 ls4 ml) Route: PO; 14:49 Follow up: Response: No adverse reaction; Marked relief of symptoms ls4 15:20 Drug: Bactrim (160 mg-800 mg (DS) 1 tablet Route: PO; ls4 15:31 Follow up: Response: No adverse reaction; Marked relief of symptoms ls4 15:20 Drug: ProTONIX 40 mg Route: IVP; Site: left antecubital; ls4 15:49 Follow up: Response: No adverse reaction; Marked relief of symptoms ls4 Intake: 14:54 IV: 500ml; Total: 500ml. ls4 15:32 IV: 300ml; Total: 800ml. ls4 Outcome: 15:10 Discharge ordered by . [facility] 15:49 Discharged to home ambulatory. ls4 15:49 Condition: stable 15:49 Discharge instructions given to patient, family, Instructed on discharge instructions, follow up and referral plans. medication usage, safety practices, Demonstrated understanding of instructions, follow-up care, medications, Prescriptions given X 3. 15:50 Patient left the ED. ls4 Addendum: 10/22/2018 08:34 Addendum: Culture Results: Positive urine culture. Bacteria is resistant to, has s s intermediate sensitivity, or is not tested against prescribed antibiotics. Report given to BERNICE for further evaluation and then to farm crew member for follow up with patient. Phone call Attempt #1 no answer, kept ringing. Unable to leave VM Certified letter sent to listed address for patient. Signatures: Dispatcher [employer] EDDC Behzad Nichole MD MD cha Rivera, Cleo Latisha Estes mh1 Valeria Causey, WILMAR RN aa5 Danica Bruce RN RN ss Montes, Shakira sm3 Anderson Ramos jp3 Alysia Landers RN RN ls4 Corrections: (The following items were deleted from the chart) 10/18 15:33 15:32 IV Status: Completed infusion; IV Intake: 550ml ls4 ls4 16:20 15:39 Temp 99.0F Oral; jp3 ls4
[2018-10-18] MEDS ORDERED: SMZ./TMP. 800/160 MG TABLET ONE (15:31)
[2018-10-18] MEDS ORDERED: PANTOPRAZOLE 40 MG INJ ONE (15:34)
[2018-10-18 16:02] VITALS: O2SAT 100
[2018-10-18 16:04] VITALS: BP 126/71
[2018-10-18 16:05] VITALS: TEMP 99
--- NOTE | 2018-10-19 11:31 | EKG ---
Test Date: 2018-10-18 Test Time: 13:26:12 Community Integration Specialist: CHRIS MEASUREMENT RESULTS: Intervals: Rate: 99 DC: 150 QRSD: 82 QT: 326 QTc: 418 [place]: P: 65 DC: 150 QRS: 52 T: 32 INTERPRETIVE STATEMENTS: Normal sinus rhythm Normal ECG Compared to ECG 07/16/2018 08:54:46 No significant changes Electronically Signed On 10-19-18 07:36:58 CDT by Hay Cline
== END 2018-10-18 15:50 | disposition home or self-care (01) ==
LOC: ER 12:00
DX: R30.0 Dysuria (principal); R53.1 Weakness; R53.83 Other fatigue; K21.9 Gastro-esophageal reflux disease without esophagitis; E11.9 Type 2 diabetes mellitus without complications; I10 Essential (primary) hypertension; Z79.84 Long term (current) use of oral hypoglycemic drugs
CPT/HCPCS: 96361; 93005; 87040 ×2; 87088; 85025; 87086; 80048; 36415; 83735; 85610; 80076; 83605; 87077; 87186; 81003; 84484; 83690; 84145; 83880; 71045; 96374; 99285; C9113; J7030

== ENCOUNTER 2019-01-20 11:59 | Emergency (ER) | payer MEDICARE ==
--- OUTSIDE RECORDS SUMMARY | 2019-01-20 12:03 | XMS REPORT ---
:1955 [facility] Address [address] [place] [address] Care Team Providers Name Role Phone Unavailable Unavailable Unavailable Payers Payer Name Policy Type Policy Number Effective Date Expiration Date Problems This patient has no known problems. Allergies, Adverse Reactions, Alerts Allergy Name Allergy Status Severity Reaction(s) Onset Inactive Treating Comments Type Date Date Clinician Penicillins DA Active RI 2014-02 00:00:0 0 Medications This patient has [...] NEGATIVE Leuk/mcL NEGATIVE DRUGS OF ABUSE SCREEN [id number] 13:56:00 Test Item Value Reference Range Comments [...] code=METHAURN) NEGATIVE SCcutoff <300 NG/ML RULE OUT RI [id number] 10:28:00 Test Item Value Reference Range Comments [...] numerical results may varyby method. BASIC METABOLIC [id number] 10:24:00 Test Item Value Reference Range Comments [...] (test code=CA) 9.0 MG/DL 8.5-10.1 HEPATIC FUNCTION [id number] 10:24:00 Test Item Value Reference Range Comments TOTAL PROTEIN (test code=PROT) 7.1 G/DL 6.4-8.2 ALBUMIN (test code=ALB) 3.6 G/DL 3.4-5.0 BILIRUBIN TOTAL (test code=BILT) 0.50 MG/DL 0.2-1.2 BILIRUBIN DIRECT (test code=BILD) 0.10 MG/DL 0.00-0.30 BILIRUBIN INDIRECT (test code=BILIND) 0.40 MG/DL 0.2-1.2 SGOT/AST (test code=AST) 22 Unit/L 15-37 SGPT/ALT (test code=ALT) 38 Unit/L 12-78 ALKALINE PHOSPHATASE TOTAL (test code=ALKP) 78 Unit/L 45-117 [id number] 10:24:00 Test Item Value Reference Range Comments LIPASE (test code=LIP) 93 Unit/L 114-286 URINALYSIS [id number] 10:11:00 Test Item Value Reference Range Comments [...] NEGATIVE mg/DL NEG UA PH DIPSTICK (test code=IHLDA) 7.0 pH UNITS 5.0-7.0 UA PROTEIN DIPSTICK (test code=PROU) NEGATIVE mg/dL NEG UA UROBILINIOGEN DIPSTICK (test code=URO) 0.2 mg/dL <2.0 UA NITRITE DIPSTICK (test code=BARI) NEGATIVE SCREEN NEG UA LEUKOCYTE ESTERASE DIPSTICK (test NEGATIVE Leuk/mcL NEGATIVE code=LEUU) DRUGS OF ABUSE SCREEN [id number] 10:11:00 Test Item Value Reference Range Comments [...] (test code=METHAURN) SCcutoff <300 NG/ML CBC W/AUTO [id number] 10:07:00 Test Item Value Reference Range Comments [...] NO DIFF/SCN CRITERIA - XR CHEST 1 [id number] 09:28:00 Name: NINA NEELY [facility] [place] : 1955 Age/S: 63 / F [id number] [address] [place] Unit #: [id number] Loc: [place] [address] Phys: Nash Osei MD Acct: [id number] Dis Date: Status: REG ER PHONE #: [phone] Exam Date: 07/12/2018919 FAX #: Reason: cp EXAMS: CPT : [id number] XR CHEST 1 V 34925 Fluoro Time: DAP (Gy m2): Air Kerma [...] PAGE 1 Signed Report Name: NINA NEELY [facility] : 1955 Age/S: 63 / F [id number] [address] [place] Unit #: [id number] Loc: [place] [address] Phys: Nash Osei MD Acct: [id number] Dis Date: Status: REG ER PHONE #: [phone] Exam Date: 2018 FAX #: Reason: cp EXAMS: CPT: [id number] XR CHEST 1 V 06861 Fluoro Time: DAP (Gy m2): Air Kerma (mGy): <Continued> Technologist: Breanna Kapadia, RT(R); Aleks Yan RT(R)(MR) [facility] Date/Time: 2018 (0928) Oralia.[email or web address] Orig Print D/T: S: 07/12/2018 (0958 ) PAGE 2 Signed Report
--- OUTSIDE RECORDS SUMMARY | 2019-01-20 12:03 | XMS REPORT | Clinical Summary ---
:1955 Author Organization [facility] Address [address] [place] [address] Care Team Providers Name Role Phone Doug Wang Primary Care Provider Unavailable Allergies Active Allergy Reactions Severity Noted Date Comments Penicillins Rash Low 11/27/2018 Medications Medication Sig Dispensed Refills Start Date End Date Status hydrocortisone 2.5 % hydrocortisone 2.5 % 0 Active cream topical cream metFORMIN XR metformin ER 500 mg 0 06/20/2017 Active (GLUCOPHAGE-XR) 500 tablet,extended mg 24 hr tablet release 24 hr alclomethasone alclometasone 0.05 % 0 Active (ACLOVATE) 0.05 % topical cream cream amLODIPine (NORVASC) Take 5 mg by mouth. 0 09/28/2018 Active 5 mg tablet betamethasone, betamethasone, 0 01/19/2018 Active augmented, augmented 0.05 % (DIPROLENE) 0.05 % topical ointment ointment blood sugar Check glucose once 0 11/10/2018 Active diagnostic strips daily before (ONETOUCH ULTRA BLUE breakfast; ICD-10 TEST STRIP) strip code E11.9 test strips blood-glucose meter Check glucose once 0 09/07/2017 Active (ONETOUCH ULTRA2 daily before METER) kit breakfast; Diagnosis code E11.9 clobetasol clobetasol 0.05 % 0 Active (TEMOVATE) 0.05 % topical ointment ointment diclofenac 2 g. 0 Active (VOLTAREN) 1 % gel hydrOXYzine (ATARAX) 0 10/14/2018 Active 50 MG tablet fluocinonide (LIDEX) fluocinonide 0.05 % 0 Active 0.05 % ointment topical ointment Active Problems No known active problems Encounters Date Type Specialty Care Team Description 12/27/2018 Clinical Support Orthopedic Surgery Bandar Garcia Primary osteoarthritis C., MD of left knee (Primary Dx) 12/21/2018 Clinical Support Orthopedic Surgery Bandar Garcia Primary osteoarthritis MD Katerine of left knee (Primary Dx) 12/13/2018 Clinical Support Orthopedic Surgery Bandar Garcia Primary halle Garcias MD of left knee (Primary Dx) 11/27/2018 Hospital Encounter Radiology Bandar Garcia MD 11/27/2018 Office Visit Orthopedic Surgery Bandar aGrcia Primary halle Garcias MD of left knee (Primary Dx) after 01/19/2018 Family History Medical History Relation Name Comments Diabetes Brother Bro Heart attack Father Dad Heart disease Father Dad Diabetes Sister Sis Relation Name Status Comments Brother Bro Father Dad Mother Sister Sis Social History Tobacco Use Types Packs/Day Years Used Date Never Smoker 0 0 Smokeless Tobacco: Never Used Alcohol Use Drinks/Week oz/Week Comments Never Sex Assigned at Date Recorded Not on file Job Start Date Occupation Industry Not on file Not on file Not on file Travel History Travel Start Travel End No recent travel history available. Last Filed Vital Signs Vital Sign Reading Time Taken Comments Blood Pressure - - Pulse - - Temperature - - Respiratory Rate - - Oxygen Saturation - - Inhaled Oxygen Concentration - - Weight 111 kg (245 lb) 11/27/2018 9:14 AM CDT Height 167.6 cm (5' 6") 11/27/2018 9:14 AM CDT Body Mass Index 39.54 11/27/2018 9:14 AM CDT Plan of Treatment Health Maintenance Due Date Last Done Comments CERVICAL CANCER SCREENING 1976 BREAST CANCER SCREENING 2005 COLONOSCOPY SCREENING 2005 SHINGLES VACCINES (#1) 2005 INFLUENZA VACCINE 12/21/2018 Procedures Procedure Name Priority Date/Time Associated Diagnosis Comments MA ARTHROCENTESIS Routine 12/27/2018 1:30 Primary Results for this ASPIR&/INJ MAJOR PM CDT osteoarthritis of procedure are in JT/BURSA W/O US left knee the results section. MA ARTHROCENTESIS Routine 12/21/2018 11:10 Primary Results for this ASPIR&/INJ MAJOR AM CDT osteoarthritis of procedure are in JT/BURSA W/O US left knee the results section. MA ARTHROCENTESIS Routine 12/13/2018 1:30 Primary Results for this ASPIR&/INJ MAJOR PM CDT osteoarthritis of procedure are in JT/BURSA W/O US left knee the results section. MA ARTHROCENTESIS Routine 11/27/2018 9:20 Primary Results for this ASPIR&/INJ MAJOR AM CDT osteoarthritis of procedure are in JT/BURSA W/O US left knee the results section. MRI LOWER EXTREMITY Routine 02/15/2018 6:36 Results for this EXTERNAL STUDY PM CDT procedure are in the results section. after 01/19/2018 Results Large Joint Arthrocentesis: knee, L knee (12/27/2018 1:30 PM CDT) Narrative Performed At Bandar Garcia MD 12/27/20185:10 PM Large Joint Arthrocentesis: knee, L knee Consent given by: patient Timeout: Immediately prior to procedure a time out was called to verify the correct patient, procedure, equipment, data support specialist and site/side marked as required Supporting Documentation Indications: pain Procedure Details Preparation: Patient was prepped and draped in the usual sterile fashion Ultrasound guided: no Location: knee - L knee Left side: Needle size: 22 G Approach: anterolateral (3ml of 1% lidocaine) Left knee medications administered: 2 mL sodium hyaluronate (viscosup) 30 mg/2 mL Patient tolerance: patient tolerated the procedure well with no immediate complications Large Joint Arthrocentesis: knee, L knee (12/21/2018 11:10 AM CDT) Narrative Performed At Bandar Garcia MD 12/21/2018 12:16 PM Large Joint Arthrocentesis: knee, L knee Consent given by: patient Timeout: Immediately prior to procedure a time out was called to verify the correct patient, procedure, equipment, data support specialist and site/side marked as required Supporting Documentation Indications: pain Procedure Details Preparation: Patient was prepped and draped in the usual sterile fashion Ultrasound guided: no Location: knee - L knee Left side: Needle size: 22 G Approach: anterolateral (3ml of 1% lidocaine) Left knee medications administered: 2 mL sodium hyaluronate (viscosup) 30 mg/2 mL Patient tolerance: patient tolerated the procedure well with no immediate complications Large Joint Arthrocentesis: knee, L knee (12/13/2018 1:30 PM CDT) Narrative Performed At Bandar Garcia MD 12/13/20185:00 PM Large Joint Arthrocentesis: knee, L knee Consent given by: patient Timeout: Immediately prior to procedure a time out was called to verify the correct patient, procedure, equipment, data support specialist and site/side marked as required Supporting Documentation Indications: pain Procedure Details Preparation: Patient was prepped and draped in the usual sterile fashion Ultrasound guided: no Location: knee - L knee Left side: Needle size: 22 G Approach: anterolateral (3ml of 1% lidocaine) Left knee medications administered: 2 mL sodium hyaluronate (viscosup) 30 mg/2 mL Patient tolerance: patient tolerated the procedure well with no immediate complications Left knee Steroid injection (11/27/2018 9:20 AM CDT) Narrative Performed At Bandar Garcia MD 11/27/20181:11 PM Left knee Steroid injection Consent given by: patient Timeout: Immediately prior to procedure a time out was called to verify the correct patient, procedure, equipment, data support specialist and site/side marked as required Supporting Documentation Indications: pain Procedure Details Ultrasound guided: no Location: knee - L knee Left side: Needle size: 22 G Approach: anterolateral Left knee medications administered: 80 mg methylPREDNISolone acetate 40 mg/mL (4ml of 1% lidocaine, 4ml of 0.5% marcaine ) Patient tolerance: patient tolerated the procedure well with no immediate complications MRI Lower Extremity External Study (02/15/2018 6:36 PM CDT) Specimen Narrative Performed At This exam was not acquired at a [facility] facility and has not been [facility] interpreted by a [facility] Provider.The exam was imported into our imaging system for comparisons purposes. 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
[2019-01-20] MEDS ORDERED: PANTOPRAZOLE 40MG TABLET PO ONE (12:37)
[2019-01-20] MEDS ORDERED: ASPIRIN 81 MG CHEWABLE TABLET ONE (12:37)
[2019-01-20] MEDS ORDERED: SUCRALFATE 1 GM TABLET ONE (12:37)
[2019-01-20 13:19] LABS: Absolute Lymphocytes (CBC) 1.4 K/uL (0.7-4.9); Basophils % 0.4 % (0-1.3); Hematocrit 36.5 % (36.0-45.0); Lymphocytes % 28.1 % (15.3-44.8); MPV 8.1 fL (7.6-11.3); RBC Red Blood Cell Count 4.11 M/uL (3.86-4.86)
[2019-01-20 13:20] LABS: Protime INR 0.99
[2019-01-20 13:36] LABS: ALT/SGPT 32 U/L (12-78); AST/SGOT 14 U/L (15-37); Alkaline Phosphatase 87 U/L (45-117); BUN Blood Urea Nitrogen 22 mg/dL (7-18); Bicarbonate 28 mmol/L (21-32); Bilirubin Direct 0.1 mg/dL (0-0.2); Bilirubin Total 0.4 mg/dL (0.2-1.0); Glucose Level 118 mg/dL (74-106); Magnesium 1.9 mg/dL (1.8-2.4); NT PRO-BNP 53 pg/mL (<125); Potassium 3.7 mmol/L (3.5-5.1); Protein, Total 7.6 g/dL (6.4-8.2); Sodium Level 142 mmol/L (136-145); Troponin (Emerg Dept Use Only) < 0.02 ng/mL (0.0-0.045)
[2019-01-20] MEDS ORDERED: NA CHLORIDE 0.9% 1,000 ML ONE (14:07)
--- NOTE | 2019-01-20 15:24 | RAD REPORT ---
EXAM DESCRIPTION: Seg[place] Single View01/20/2019 1:08 pm CLINICAL HISTORY: Chest pain COMPARISON: September 2018 FINDINGS: The lungs appear clear of acute infiltrate. The heart is normal size IMPRESSION: No acute abnormalities displayed
[2019-01-20 15:46] LABS: BUN Blood Urea Nitrogen 22 mg/dL (7-18); Bicarbonate 29 mmol/L (21-32); Glucose Level 84 mg/dL (74-106); Potassium 4.2 mmol/L (3.5-5.1); Sodium Level 143 mmol/L (136-145)
[2019-01-20 15:47] LABS: Troponin (Emerg Dept Use Only) < 0.02 ng/mL (0.0-0.045)
--- NOTE | 2019-01-20 15:49 | ER ---
Nurse's Notes [facility] Name: Nanci Barros Age: 63 yrs Sex: Female : 1955 Arrival Date: 01/20/2019 Time: 12:02 Bed 18 Private MD: out of town, doctor Diagnosis: Chest pain, unspecified;Volume depletion Presentation: 01/20 12:23 Presenting complaint: Patient states: reports chest pain since december 28, denies em nausea, vomiting or SOB. Transition of care: patient was not received from another setting of care. Onset of symptoms was December 28, 2018. Risk Assessment: Do you want to hurt yourself or someone else? Patient reports no desire to harm self or others. Initial Sepsis Screen: Does the patient meet any 2 criteria? No. Patient's initial sepsis screen is negative. Does the patient have a suspected source of infection? No. Patient's initial sepsis screen is negative. Care prior to arrival: None. 12:23 Method Of Arrival: Ambulatory em 12:30 Acuity: GET 3 aa5 Historical: - Allergies: 12:26 PENICILLINS; em - Home Meds: 12:26 amlodipine 5 mg tab 1 tab once daily [Active]; losartan 100 mg Oral tab once daily em [Active]; metformin 500 mg Oral tab daily [Active]; nitrofurantoin macrocrystal 100 mg Oral cap [Active]; telmisartan-hydrochlorothiazid 80-25 mg Oral tab once daily [Active]; - PMHx: 12:26 acid reflux; Diabetes - NIDDM; Hypertension; psoriasis; em - PSHx: 12:26 Cholecystectomy; em - Immunization history:: Flu vaccine is not up to date. - Social history:: Smoking status: Patient/guardian denies using tobacco, never smoked. - Ebola Screening: : Patient negative for fever greater than or equal to 101.5 degrees Fahrenheit, and additional compatible Ebola Virus Disease symptoms Patient denies exposure to infectious person Patient denies travel to an Ebola-affected area in the 21 days before illness onset No symptoms or risks identified at this time. Screenin:27 Abuse screen: Denies threats or abuse. Nutritional screening: No deficits noted. em Tuberculosis screening: No symptoms or risk factors identified. Fall Risk None identified. Assessment: 12:26 General: Appears in no apparent distress. comfortable, Behavior is cooperative, em anxious, Denies fever. Pain: Complains of pain in left breast and mid-sternal area Pain does not radiate. Pain currently is 8 out of 10 on a pain scale. Quality of pain is described as pressure, Pain began december 28. Neuro: Level of Consciousness is awake, alert, obeys commands, Oriented to person, place, time, situation. Cardiovascular: Denies nausea, vomiting, Heart tones S1 S2 present Capillary refill < 3 seconds Patient's skin is warm and dry. Rhythm is sinus rhythm. Respiratory: Airway is patent Respiratory effort is even, unlabored, Respiratory pattern is regular, symmetrical. GI: Abdomen is round non-distended, Abd is soft and non tender X 4 quads. Derm: Skin is intact, is healthy with good turgor, Skin is pink, warm \T\ dry. Musculoskeletal: Capillary refill < 3 seconds, Range of motion: intact in all extremities. 12:26 Reassessment: I agree with assessment completed by Daniel English LVN. aa5 13:44 Reassessment: Patient appears in no apparent distress at this time. Patient and/or em family updated on plan of care and expected duration. Pain level reassessed. Patient is alert, oriented x 3, equal unlabored respirations, skin warm/dry/pink. Patient states feeling better. Patient states symptoms have improved. 14:49 Reassessment: Patient appears in no apparent distress at this time. Patient and/or em family updated on plan of care and expected duration. Pain level reassessed. Patient is alert, oriented x 3, equal unlabored respirations, skin warm/dry/pink. 15:50 Reassessment: Patient appears in no apparent distress at this time. Patient and/or em family updated on plan of care and expected duration. Pain level reassessed. Patient is alert, oriented x 3, equal unlabored respirations, skin warm/dry/pink. eating snacks at bedside, reports medication has helped, family member at bedside. Vital Signs: 12:26 BP 118 / 83; Pulse 86; Resp 18; Pulse Ox 100% on R/A; Weight 108.86 kg; Height 5 ft. 6 em in. (167.64 cm); Pain 8/10; 13:56 BP 109 / 62; Pulse 76; Resp 16; Temp 97.5(O); Pulse Ox 100% ; lt1 15:47 BP 107 / 58; Pulse 76; Resp 16; Pulse Ox 99% on R/A; Pain 4/10; em 12:26 Body Mass Index 38.74 (108.86 kg, 167.64 cm) em ED Course: 12:02 Patient arrived in ED. ag5 12:02 out of town, doctor is Private Physician. ag5 12:09 [facility] snw 12:09 Behzad Nichole MD is Attending Physician. snw 12:15 Daniel English LVN is Primary Nurse. em 12:26 Arm band placed on. em 12:27 Patient has correct armband on for positive identification. Placed in gown. Bed in low em position. Call light in reach. Side rails up X2. youth nutritional monitor on. Pulse ox on. NIBP on. 12:27 Patient maintains SpO2 saturation greater than 95% on room air. em 12:30 Triage completed. aa5 13:10 XRAY Chest (1 view) In Process Unspecified. EDMS 13:19 Inserted saline lock: 20 gauge in left antecubital area, using aseptic technique. la1 ,using aseptic technique. VIA ULTRASOUND GUIDANCE Blood collected. 16:13 No provider procedures requiring assistance completed. IV discontinued, intact, em bleeding controlled, No redness/swelling at site. Pressure dressing applied. Administered Medications: 12:40 Drug: CarafATE 1 grams Route: PO; em 13:30 Follow up: Response: No adverse reaction; Marked relief of symptoms; Pain is decreased em 12:46 Drug: Aspirin Chewable Tablet 324 mg Route: PO; em 13:30 Follow up: Response: No adverse reaction em 12:46 Drug: ProTONIX 40 mg Route: PO; em 13:30 Follow up: Response: No adverse reaction; Marked relief of symptoms; Pain is decreased em 14:09 Drug: NS 0.9% 1000 ml Route: IV; Rate: 75 ml/hr; Site: left antecubital; ca1 16:10 Follow up: IV Status: Order to discontinue infusion; IV Intake: 150ml em Intake: 16:10 IV: 150ml; Total: 150ml. em Outcome: 15:48 Discharge ordered by . snw 16:13 Discharged to home ambulatory, with family. em 16:13 Condition: good 16:13 Discharge instructions given to patient, family, Instructed on discharge instructions, follow up and referral plans. medication usage, Demonstrated understanding of instructions, follow-up care, medications, Prescriptions given X 2. 16:14 Patient left the ED. em Signatures: Dispatcher [employer] EDMS Nila Venegas, CHEMICAL PROCESS ANALYST-C CHEMICAL PROCESS ANALYST-Csnw Daniel English, RETAIL STOCK CLERK RETAIL STOCK CLERK em Valeria Causey RN RN aa5 Martinez Johnston RN RN la1 Supriya Shelby RN RN ca1 Zaheer Pollock 5 Trixie Chavarria [facility]
--- NOTE | 2019-01-20 15:50 | EDPHYS ---
Physician Documentation [facility] Name: Nanci Barros Age: 63 yrs Sex: Female : 1955 Arrival Date: 01/20/2019 Time: 12:02 Bed 18 Private MD: out of town, doctor ED Physician Behzad Nichole HPI: 01/20 12:33 This 63 yrs old Black Female presents to ER via Ambulatory with complaints of Chest snw Pain. 12:33 The patient or guardian reports chest pain that is located primarily in the anterior snw chest wall, left. Onset: gradually, and became persistent noted on 12/28/18 post of her Son, persistent since that time. Associated signs and symptoms: The patient has no apparent associated signs or symptoms. The chest pain is described as causing indigestion, a pressure. Duration: The patient or guardian reports multiple episodes. Severity of pain: At its worst the pain was moderate. It is unknown whether or not the patient has had similar symptoms in the past. Sees [facility] in [place]. Historical: - Allergies: 12:26 PENICILLINS; em - Home Meds: 12:26 amlodipine 5 mg tab 1 tab once daily [Active]; losartan 100 mg Oral tab once daily em [Active]; metformin 500 mg Oral tab daily [Active]; nitrofurantoin macrocrystal 100 mg Oral cap [Active]; telmisartan-hydrochlorothiazid 80-25 mg Oral tab once daily [Active]; - PMHx: 12:26 acid reflux; Diabetes - NIDDM; Hypertension; psoriasis; em - PSHx: 12:26 Cholecystectomy; em - Immunization history:: Flu vaccine is not up to date. - Social history:: Smoking status: Patient/guardian denies using tobacco, never smoked. - Ebola Screening: : Patient negative for fever greater than or equal to 101.5 degrees Fahrenheit, and additional compatible Ebola Virus Disease symptoms Patient denies exposure to infectious person Patient denies travel to an Ebola-affected area in the 21 days before illness onset No symptoms or risks identified at this time. ROS: 12:32 Constitutional: Negative for fever, chills, and weight loss, Eyes: Negative for injury, snw pain, redness, and discharge, ENT: Negative for injury, pain, and discharge, Neck: Negative for injury, pain, and swelling, Respiratory: Negative for shortness of breath, cough, wheezing, and pleuritic chest pain, Abdomen/GI: Negative for abdominal pain, nausea, vomiting, diarrhea, and constipation, Back: Negative for injury and pain, : Negative for injury, bleeding, discharge, and swelling, MS/Extremity: Negative for injury and deformity, Skin: Negative for injury, rash, and discoloration, Neuro: Negative for headache, weakness, numbness, tingling, and seizure. 12:32 Cardiovascular: Positive for chest pain, of the mid-sternal area and left breast. Exam: 12:32 Constitutional: This is a well developed, well nourished patient who is awake, alert, snw and in no acute distress. Head/Face: Normocephalic, atraumatic. Eyes: Pupils equal round and reactive to light, extra-ocular motions intact. Lids and lashes normal. Conjunctiva and sclera are non-icteric and not injected. Cornea within normal limits. Periorbital areas with no swelling, redness, or edema. ENT: Nares patent. No nasal discharge, no septal abnormalities noted. Tympanic membranes are normal and external auditory canals are clear. Oropharynx with no redness, swelling, or masses, exudates, or evidence of obstruction, uvula midline. Mucous membranes moist. Neck: Trachea midline, no thyromegaly or masses palpated, and no cervical lymphadenopathy. Supple, full range of motion without nuchal rigidity, or vertebral point tenderness. No Meningismus. Chest/axilla: Normal chest wall appearance and motion. Nontender with no deformity. No lesions are appreciated. Cardiovascular: Regular rate and rhythm with a normal S1 and S2. No gallops, murmurs, or rubs. Normal PMI, no JVD. No pulse deficits. Respiratory: Lungs have equal breath sounds bilaterally, clear to auscultation and percussion. No rales, rhonchi or wheezes noted. No increased work of breathing, no retractions or nasal flaring. Abdomen/GI: Soft, non-tender, with normal bowel sounds. No distension or tympany. No guarding or rebound. No evidence of tenderness throughout. Back: No spinal tenderness. No costovertebral tenderness. Full range of motion. Skin: Warm, dry with normal turgor. Normal color with no rashes, no lesions, and no evidence of cellulitis. MS/ Extremity: Pulses equal, no cyanosis. Neurovascular intact. Full, normal range of motion. Neuro: Awake and alert, GCS 15, oriented to person, place, time, and situation. Cranial nerves II-XII grossly intact. Motor strength 5/5 in all extremities. Sensory grossly intact. Cerebellar exam normal. Normal gait. Psych: Awake, alert, with orientation to person, place and time. Behavior, mood, and affect are within normal limits. Vital Signs: 12:26 BP 118 / 83; Pulse 86; Resp 18; Pulse Ox 100% on R/A; Weight 108.86 kg; Height 5 ft. 6 em in. (167.64 cm); Pain 8/10; 13:56 BP 109 / 62; Pulse 76; Resp 16; Temp 97.5(O); Pulse Ox 100% ; lt1 15:47 BP 107 / 58; Pulse 76; Resp 16; Pulse Ox 99% on R/A; Pain 4/10; em 12:26 Body Mass Index 38.74 (108.86 kg, 167.64 cm) em MDM: 12:13 Patient medically screened. antonio 15:51 ECG:. The patient was given aspirin in the Emergency Department. Data reviewed: vital snw signs, nurses notes. Data interpreted: Pulse oximetry: on room air is 99 %. Interpretation: normal. Counseling: I had a detailed discussion with the patient and/or guardian regarding: the historical points, exam findings, and any diagnostic results supporting the discharge/admit diagnosis, lab results, radiology results, the need for outpatient follow up, to return to the emergency department if symptoms worsen or persist or if there are any questions or concerns that arise at home. Special discussion: Based on the patient's history, exam, and Dx evaluation, there is no indication for emergent intervention or inpatient Tx. It is understood by the patient/guardian that if the Sx's persist or worsen they need to return immediately for re-evaluation. Based on the history and exam findings, there is no indication for further emergent testing or inpatient evaluation. I discussed with the patient/guardian the need to see the tobacco stripper hand for further evaluation of the symptoms. I discussed with the patient/guardian the need to see the primary care provider for further evaluation of the symptoms. 01/20 12:33 Order name: Basic Metabolic Panel; Complete Time: 13:48 snw 01/20 12:33 Order name: CBC with Diff; Complete Time: 13:48 snw 01/20 12:33 Order name: LFT's; Complete Time: 13:48 snw 01/20 12:33 Order name: Magnesium; Complete Time: 13:48 snw 01/20 12:33 Order name: NT PRO-BNP; Complete Time: 13:48 snw 01/20 12:33 Order name: PT-INR; Complete Time: 13:48 snw 01/20 12:33 Order name: Troponin (emerg Dept Use Only); Complete Time: 13:48 snw 01/20 12:33 Order name: XRAY Chest (1 view); Complete Time: 15:28 snw 01/20 14:47 Order name: Chem 7; Complete Time: 15:48 snw 01/20 15:26 Order name: Troponin (Emerg Dept Use Only); Complete Time: 15:48 EDMS 01/20 12:33 Order name: EKG; Complete Time: 12:35 snw 01/20 12:33 Order name: Cardiac monitoring; Complete Time: 12:34 snw 01/20 12:33 Order name: EKG - Nurse/Tech; Complete Time: 12:34 snw 01/20 12:33 Order name: IV Saline Lock; Complete Time: 12:34 snw 01/20 12:33 Order name: Labs collected and sent; Complete Time: 12:34 snw 01/20 12:33 Order name: O2 Per Protocol; Complete Time: 12:34 snw 01/20 12:33 Order name: O2 Sat Monitoring; Complete Time: 12:34 snw 01/20 14:18 Order name: Repeat Cardiac Enzymes at: at 1500, with repeat C7, and EKG please; snw Complete Time: 15:20 01/20 14:46 Order name: EKG; Complete Time: 14:46 snw Administered Medications: 12:40 Drug: CarafATE 1 grams Route: PO; em 13:30 Follow up: Response: No adverse reaction; Marked relief of symptoms; Pain is decreased em 12:46 Drug: Aspirin Chewable Tablet 324 mg Route: PO; em 13:30 Follow up: Response: No adverse reaction em 12:46 Drug: ProTONIX 40 mg Route: PO; em 13:30 Follow up: Response: No adverse reaction; Marked relief of symptoms; Pain is decreased em 14:09 Drug: NS 0.9% 1000 ml Route: IV; Rate: 75 ml/hr; Site: left antecubital; ca1 16:10 Follow up: IV Status: Order to discontinue infusion; IV Intake: 150ml em Disposition: 01/20/19 15:48 Discharged to Home. Impression: Chest pain, unspecified, Volume depletion. - Condition is Stable. - Discharge Instructions: Nonspecific Chest Pain, Dehydration, Adult, Gastroesophageal Reflux Disease, Adult, Aspirin and Your Heart, Rehydration, Adult. - Prescriptions for Protonix 40 mg Oral Tablet - take 1 tablet by ORAL route once daily; 30 tablet. Carafate 1 gram Oral Tablet - take 2 tablet by ORAL route every 12 hours take on an empty stomach, beginning on waking and last dose at bedtime; 100 tablet. - Medication Reconciliation Form, Thank You Letter, Antibiotic Education, Prescription Opioid Use form. - Follow up: Private Physician; When: 2 - 3 days; Reason: Recheck today's complaints, Continuance of care, Re-evaluation by your physician. Follow up: Emergency Department; When: As needed; Reason: Worsening of condition. Addendum: 01/22/2019 09:13 Co-signature as Attending Physician, Behzad Nichole MD I agree with the assessment and c martínez plan of care. Signatures: Dispatcher [employer] Behzad Kenny MD MD cha Therrien, Shelly, EARLY CHILDHOOD TEACHER-C EARLY CHILDHOOD TEACHER-Csnw Daniel English, SPORTS BOOK SERVER SPORTS BOOK SERVER em Supriya Shelby, RN RN ca1 Corrections: (The following items were deleted from the chart) 01/20 13:08 12:33 Onset: gradually, and became persistent noted on 12/29/18 post of her Son, snw persistent since that time, snw 15:26 14:45 TROPONIN (EMERG DEPT USE ONLY)+C.LAB.BRZ ordered. [facility] 16:14 15:48 01/20/2019 15:48 Discharged to Home. Impression: Chest pain, unspecified; Volume em depletion. Condition is Stable. Forms are Medication Reconciliation Form, Thank You Letter, Antibiotic Education, Prescription Opioid Use. Follow up: Private Physician; When: 2 - 3 days; Reason: Recheck today's complaints, Continuance of care, Re-evaluation by your physician. Follow up: Emergency Department; When: As needed; Reason: Worsening of condition. snw
[2019-01-20 16:42] VITALS: TEMP 97.5
[2019-01-20 16:43] VITALS: BP 107/58; O2SAT 99
--- NOTE | 2019-01-21 08:07 | EKG ---
Test Date: 2019-01-20 Test Time: 15:12:35 Junior Designer: SOLOMON MEASUREMENT RESULTS: Intervals: Rate: 68 AR: 156 QRSD: 78 QT: 370 QTc: 393 [place]: P: 58 AR: 156 QRS: 24 T: 31 INTERPRETIVE STATEMENTS: Normal sinus rhythm Normal ECG Compared to ECG 01/20/2019 12:32:17 No significant changes Electronically Signed On 01-21-19 08:06:50 CDT by Mack Caba
--- NOTE | 2019-01-21 08:08 | EKG ---
Test Date: 2019-01-20 Test Time: 12:32:17 Cycle Touring Guide: MICHELLET MEASUREMENT RESULTS: Intervals: Rate: 82 TN: 164 QRSD: 80 QT: 354 QTc: 413 [place]: P: 68 TN: 164 QRS: 23 T: 33 INTERPRETIVE STATEMENTS: Normal sinus rhythm Normal ECG Compared to ECG 10/18/2018 13:26:12 No significant changes Electronically Signed On 01-21-19 08:06:59 CDT by Mack Caba
== END 2019-01-20 16:14 | disposition home or self-care (01) ==
LOC: ER 11:59
DX: R07.9 Chest pain, unspecified (principal); E86.9 Volume depletion, unspecified; I10 Essential (primary) hypertension; E11.9 Type 2 diabetes mellitus without complications; Z88.0 Allergy status to penicillin
CPT/HCPCS: 96361; 93005 ×2; 85025; 80048 ×2; 36415; 83735; 85610; 80076; 84484 ×2; 83880; 71045; 96360; 99285; J7030

== ENCOUNTER 2019-05-08 12:58 | Emergency (ER) | payer MEDICARE ==
--- OUTSIDE RECORDS SUMMARY | 2019-05-08 13:00 | XMS REPORT ---
:1955 [facility] Address [address] [place] [address] Care Team Providers Name Role Phone Unavailable Unavailable Unavailable Payers Payer Name Policy Type Policy Number Effective Date Expiration Date Problems This patient has no known problems. Allergies, Adverse Reactions, Alerts Allergy Name Allergy Status Severity Reaction(s) Onset Inactive Treating Comments Type Date Date Clinician Penicillins DA Active AL 2014-02 00:00:0 0 Medications This patient has [...] NEGATIVE Leuk/mcL NEGATIVE DRUGS OF ABUSE SCREEN [id number] 13:56:00 Test Item Value Reference Range Comments [...] code=METHAURN) NEGATIVE SCcutoff <300 NG/ML RULE OUT AL [id number] 10:28:00 Test Item Value Reference Range Comments [...] numerical results may varyby method. BASIC METABOLIC [id number] 10:24:00 Test Item Value Reference Range Comments [...] (test code=CA) 9.0 MG/DL 8.5-10.1 HEPATIC FUNCTION [id number] 10:24:00 Test Item Value Reference Range Comments TOTAL PROTEIN (test code=PROT) 7.1 G/DL 6.4-8.2 ALBUMIN (test code=ALB) 3.6 G/DL 3.4-5.0 BILIRUBIN TOTAL (test code=BILT) 0.50 MG/DL 0.2-1.2 BILIRUBIN DIRECT (test code=BILD) 0.10 MG/DL 0.00-0.30 BILIRUBIN INDIRECT (test code=BILIND) 0.40 MG/DL 0.2-1.2 SGOT/AST (test code=AST) 22 Unit/L 15-37 SGPT/ALT (test code=ALT) 38 Unit/L 12-78 ALKALINE PHOSPHATASE TOTAL (test code=ALKP) 78 Unit/L 45-117 [id number] 10:24:00 Test Item Value Reference Range Comments LIPASE (test code=LIP) 93 Unit/L 114-286 URINALYSIS [id number] 10:11:00 Test Item Value Reference Range Comments [...] Leuk/mcL NEGATIVE code=LEUU) DRUGS OF ABUSE SCREEN [id number] 10:11:00 Test Item Value Reference Range Comments [...] (test code=METHAURN) SCcutoff <300 NG/ML CBC W/AUTO [id number] 10:07:00 Test Item Value Reference Range Comments [...] NO DIFF/SCN CRITERIA - XR CHEST 1 [id number] 09:28:00 Name: NINA NEELY [facility] [place] : 1955 Age/S: 63 / F [id number] [address] Unit #: [id number] Loc: [place] [address] Phys: Nash Osei MD Acct: [id number] Dis Date: Status: REG ER PHONE #: [phone] Exam Date: 07/12/2018919 FAX #: Reason: cp EXAMS: CPT : [id number] XR CHEST 1 V 39729 Fluoro Time: DAP (Gy m2): Air Kerma [...] at 0928 Reported and signed by: Dinh Baxtre M.D. CC: Nash Osei MD PAGE 1 Signed Report Name: NINA NEELY [facility] : 1955 Age/S: 63 / F [id number] [address] Unit #: [id number] Loc: [place] [address] Phys: Nash Osei MD Acct: [id number] Dis Date: Status: REG ER PHONE #: [phone] Exam Date: 2018 FAX #: Reason: cp EXAMS: CPT: [id number] XR CHEST 1 V 24006 Fluoro Time: DAP (Gy m2): Air Kerma (mGy): <Continued> Technologist: Breanna Kapadia, RT(R); Aleks Yna RT(R)(MR) [facility] Date/Time: 2018 (0928) Oralia.SP17 Orig Print D/T: S: 07/12/2018 (0942 ) PAGE 2 Signed Report
--- OUTSIDE RECORDS SUMMARY | 2019-05-08 13:01 | XMS REPORT | Summary of Care ---
:1955 Author Organization [facility] Address [address] [place] [id number] Care Team Providers Name Role Phone HickoryStef walshjonathan Barnes MD Primary Care Provider Encounter Details Date Type Department Care Team Description 02/09/2019 Orders Only [facility] Doctor Unassigned, No [facility] Name [place] [id number] [address] [place] [address] Allergies Active Allergy Reactions Severity Noted Date Comments Penicillin Rash, Shortness of Breath 02/02/2017 documented as of this encounter (statuses as of 02/09/2019) Medications Medication Sig Dispensed Refills Start Date End Date Status omeprazole 40 mg Take 40 mg by 0 01/21/2017 Active capsule mouth daily. metformin ER 500 mg 24 0 06/20/2017 Active hr tablet Blood-Glucose Meter Check glucose once 1 Kit 0 09/07/2017 Active (ONETOUCH ULTRA2) Kit daily before breakfast; Diagnosis code E11.9 acetaminophen-codeine 0 11/13/2017 Active 300-30 mg tablet nystatin 100,000 Apply to area(s) 60 g 1 01/19/2018 Active unit/gram 2 (two) times powderIndications: daily as needed Tinea cruris for Itching. aug betamethasone Apply to area(s) 45 g 6 01/19/2018 Active dipropionate 0.05 % at bedtime. ointmentIndications: Lichen sclerosus hydrOXYzine 50 mg Take 1 tablet by 30 tablet 3 08/17/2018 Active tabletIndications: mouth 3 (three) Lichen simplex times daily as chronicus needed for Itching. tacrolimus 0.1 % Apply to area(s) 100 g 3 08/17/2018 Active ointmentIndications: 2 (two) times Lichen simplex daily. chronicus, Vitiligo amLODIPine 5 mg Take 1 tablet by 90 tablet 1 09/28/2018 Active tabletIndications: mouth daily. Essential hypertension telmisartan-hydrochlor Take 1 tablet by 90 tablet 1 10/20/2018 Active othiazide 40-12.5 mg mouth daily. per tabletIndications: Essential hypertension ONETOUCH ULTRA BLUE Check glucose once 100 Strip 3 11/10/2018 Active TEST STRIP daily before stripIndications: breakfast; ICD-10 Controlled type 2 code E11.9 diabetes mellitus without complication, without long-term current use of insulin ONE TOUCH DELICA 33 Check glucose once 100 Each 3 11/10/2018 Active gauge MiscIndications: daily before Controlled type 2 breakfast; ICD-10 diabetes mellitus code E11.9 without complication, without long-term current use of insulin documented as of this encounter (statuses as of 02/09/2019) Active Problems Problem Noted Date LASHAY (acute kidney injury) 10/29/2018 Obesity (BMI 30-39.9) 10/29/2018 Pancytopenia 10/16/2018 ASCUS of cervix with negative high risk HPV 08/31/2018 Overview: 08/17/18 - pap smear ASCUS with negative HPV Other urinary incontinence 01/19/2018 Lichen simplex chronicus 06/18/2017 Vulvar lesion 06/15/2017 Abnormal EKG 06/03/2017 Vulvar itching 05/13/2017 Vulvar rash 05/13/2017 Screening for colorectal cancer 02/08/2017 Overview: Added automatically from request for surgery [id number] Diabetes mellitus type 2, controlled, without complications 02/04/2017 Essential hypertension 02/04/2017 GERD (gastroesophageal reflux disease) 02/04/2017 documented as of this encounter (statuses as of 02/09/2019) Social History Tobacco Use Types Packs/Day Years Used Date Never Smoker Smokeless Tobacco: Never Used Alcohol Use Drinks/Week oz/Week Comments No Sex Assigned at Date Recorded Not on file Job Start Date Occupation Industry Not on file Not on file Not on file Travel History Travel Start Travel End No recent travel history available. documented as of this encounter Last Filed Vital Signs Not on filedocumented in this encounter Plan of Treatment Date Type Specialty Care Team Description 02/09/2019 Office Visit Family Medicine Doug Wang MD [address] [place] [address] Health Maintenance Due Date Last Done Comments PNEUMOCOCCAL 0-64 YEARS COMBINED 1961 SERIES (1 of 1 - PPSV23) FOOT EXAM 1973 DTaP,Tdap,and Td Vaccines (1 - 1974 Tdap) Zoster Recombinant Vaccine 2005 (SHINGRIX) (1 of 2) MAMMOGRAM 07/17/2013 07/17/2012 EYE EXAM 07/25/2018 07/25/2017 INFLUENZA VACCINE (#1) 2019 HgA1C 04/05/2019 10/03/2018, 02/02/2017 LDL-C 10/04/2019 10/03/2018, 02/02/2017 URINE MICROALBUMIN 10/04/2019 10/03/2018, 02/02/2017 CREATININE (SERUM) 11/17/2019 11/16/2018, 10/30/2018, 10/29/2018, Additional history exists PAP SMEAR 08/17/2021 08/17/2018, 08/17/2018, 05/18/2012 COLONOSCOPY 03/03/2027 03/03/2017 HEPATITIS C (HCV) SCREEN Completed 11/16/2018 documented as of this encounter Goals Goal Patient Goal Associated Recent Patient-Stated? Author Type Problems Progress weight down General Yes Felipe, to 247 lbs Doug Barnes MD by October of 2017 documented as of this encounter Procedures Procedure Name Priority Date/Time Associated Diagnosis Comments NOTICE OF BILLING Routine 02/09/2019 9:12 AM CDT PRACTICES FOR MEDICARE PATIENTS documented in this encounter Results Not on filedocumented in this encounter Insurance Payer Benefit Plan / Subscriber ID Effective Phone Address Type Group Dates [facility] MEDICARE [id number] 2017-Prese Medicare Adv HEALTHCARE - COMPLETE nt HMO MANAGED MEDICARE documented as of this encounter
[2019-05-08 14:02] LABS: Absolute Lymphocytes (CBC) 0.7 K/uL (0.7-4.9); Basophils % 0.4 % (0-1.3); Hematocrit 39.8 % (36.0-45.0); Lymphocytes % 22.4 % (15.3-44.8); MPV 8.1 fL (7.6-11.3); RBC Red Blood Cell Count 4.56 M/uL (3.86-4.86)
[2019-05-08 14:05] LABS: Protime INR 1.04
[2019-05-08] MEDS ORDERED: FENTANYL CITR 100 MCG/2 ML ONE (14:08)
[2019-05-08] MEDS ORDERED: ACETAMINOPHEN 500 MG TAB ONE (14:08)
[2019-05-08] MEDS ORDERED: ONDANSETRON 4 MG/2 ML VIAL ONE (14:08)
[2019-05-08] MEDS ORDERED: FAMOTIDINE 20 MG/2 ML VIAL IV ONE (14:08)
[2019-05-08] MEDS ORDERED: NA CHLORIDE 0.9% 1,000 ML ONE (14:08)
--- NOTE | 2019-05-08 14:39 | RAD REPORT ---
EXAM DESCRIPTION: CT - Abdomen Pelvis Wo Contrast - 05/08/2019 2:06 pm CLINICAL HISTORY: Abdominal pain COMPARISON: June 2018 TECHNIQUE: Computed axial tomography of the abdomen and pelvis was obtained. IV and oral contrast we re not requested. All CT scans are performed using dose optimization technique as appropriate and may include automated exposure control or mA/KV adjustment according to patient size. FINDINGS: The evaluation of solid organs, vessels and bowel is limited secondary to the lack of con trast administration. The liver is enlarged with fatty infiltration Spleen, pancreas, and adrenals appear grossly normal. 1 millimeter nonobstructing right renal calculu s. Left kidney is small. It contains cortical thinning. Tiny umbilical hernia The appendix is normal. There is no evidence of diverticulitis. IMPRESSION: Mild hepatomegaly with fatty infiltration Tiny nonobstructing right renal calculus
--- NOTE | 2019-05-08 14:40 | RAD REPORT ---
EXAM DESCRIPTION: [place] Single View05/08/2019 1:56 pm CLINICAL HISTORY: Abdominal pain COMPARISON: December 2018 FINDINGS: The lungs appear clear of acute infiltrate. The heart is normal size IMPRESSION: No acute abnormalities displayed
[2019-05-08 15:01] LABS: ALT/SGPT 32 U/L (12-78); AST/SGOT 20 U/L (15-37); Albumin 3.9 g/dL (3.4-5.0); Alkaline Phosphatase 90 U/L (45-117); BUN Blood Urea Nitrogen 14 mg/dL (7-18); Bicarbonate 28 mmol/L (21-32); Bilirubin Direct < 0.1 mg/dL (0-0.2); Bilirubin Total 0.3 mg/dL (0.2-1.0); Glucose Level 95 mg/dL (74-106); Lipase 112 U/L (73-393); Potassium 4.1 mmol/L (3.5-5.1); Protein, Total 7.3 g/dL (6.4-8.2); Sodium Level 140 mmol/L (136-145)
[2019-05-08 15:03] LABS: Magnesium 2.3 mg/dL (1.8-2.4); NT PRO-BNP 39 pg/mL (<125); Troponin (Emerg Dept Use Only) < 0.02 ng/mL (0.0-0.045)
--- NOTE | 2019-05-08 16:04 | EDPHYS ---
Physician Documentation [facility] Name: Nanci Barros Age: 63 yrs Sex: Female : 1955 Arrival Date: 05/08/2019 Time: 13:01 Bed 16 Private MD: THIEN CHATMAN ED Physician Arnaldo Kinney HPI: 05/08 15:20 This 63 yrs old Black Female presents to ER via Ambulatory with complaints of Abdominal wa Pain. 15:20 The patient presents with abdominal pain in the epigastric area, in the right upper wa quadrant, in the left upper quadrant. Onset: The symptoms/episode began/occurred last night. The symptoms do not radiate. Associated signs and symptoms: Pertinent positives: diarrhea. The symptoms are described as achy. Modifying factors: The symptoms are alleviated by nothing, the symptoms are aggravated by nothing. Severity of pain: At its worst the pain was moderate in the emergency department the pain is unchanged. The patient has not experienced similar symptoms in the past. The patient has not recently seen a physician. Historical: - Allergies: 13:04 PENICILLINS; tw2 - Home Meds: 13:04 telmisartan-hydrochlorothiazid 80-25 mg Oral tab once daily [Active]; nitrofurantoin tw2 macrocrystal 100 mg Oral cap [Active]; metformin 500 mg Oral tab daily [Active]; losartan 100 mg Oral tab once daily [Active]; amlodipine 5 mg tab 1 tab once daily [Active]; - PMHx: 13:04 acid reflux; Diabetes - NIDDM; Hypertension; psoriasis; tw2 - PSHx: 13:04 Cholecystectomy; right rotator cuff; left leg surger; tw2 - Immunization history:: Adult Immunizations. - Social history:: Smoking status: . - Ebola Screening: : Patient denies travel to an Ebola-affected area in the 21 days before illness onset. - Family history:: not pertinent. - Hospitalizations: : No recent hospitalization is reported. ROS: 15:22 Constitutional: Negative for fever, chills, and weight loss, Eyes: Negative for injury, wa pain, redness, and discharge, ENT: Negative for injury, pain, and discharge, Neck: Negative for injury, pain, and swelling, Cardiovascular: Negative for chest pain, palpitations, and edema, Respiratory: Negative for shortness of breath, cough, wheezing, and pleuritic chest pain, Back: Negative for injury and pain, : Negative for injury, bleeding, discharge, and swelling, MS/Extremity: Negative for injury and deformity, Skin: Negative for injury, rash, and discoloration, Neuro: Negative for headache, weakness, numbness, tingling, and seizure, Psych: Negative for depression, anxiety, suicide ideation, homicidal ideation, and hallucinations. 15:22 Abdomen/GI: Positive for abdominal pain, diarrhea, Negative for vomiting. Exam: 15:22 Constitutional: This is a well developed, well nourished patient who is awake, alert, wa and in no acute distress. Head/Face: Normocephalic, atraumatic. Eyes: Pupils equal round and reactive to light, extra-ocular motions intact. Lids and lashes normal. Conjunctiva and sclera are non-icteric and not injected. Cornea within normal limits. Periorbital areas with no swelling, redness, or edema. ENT: Nares patent. No nasal discharge, no septal abnormalities noted. Tympanic membranes are normal and external auditory canals are clear. Oropharynx with no redness, swelling, or masses, exudates, or evidence of obstruction, uvula midline. Mucous membranes moist. Neck: Trachea midline, no thyromegaly or masses palpated, and no cervical lymphadenopathy. Supple, full range of motion without nuchal rigidity, or vertebral point tenderness. No Meningismus. Chest/axilla: Normal chest wall appearance and motion. Nontender with no deformity. No lesions are appreciated. Cardiovascular: Regular rate and rhythm with a normal S1 and S2. No gallops, murmurs, or rubs. Normal PMI, no JVD. No pulse deficits. Respiratory: Lungs have equal breath sounds bilaterally, clear to auscultation and percussion. No rales, rhonchi or wheezes noted. No increased work of breathing, no retractions or nasal flaring. Back: No spinal tenderness. No costovertebral tenderness. Full range of motion. Skin: Warm, dry with normal turgor. Normal color with no rashes, no lesions, and no evidence of cellulitis. MS/ Extremity: Pulses equal, no cyanosis. Neurovascular intact. Full, normal range of motion. Neuro: Awake and alert, GCS 15, oriented to person, place, time, and situation. Cranial nerves II-XII grossly intact. Motor strength 5/5 in all extremities. Sensory grossly intact. Cerebellar exam normal. Normal gait. Psych: Awake, alert, with orientation to person, place and time. Behavior, mood, and affect are within normal limits. 15:22 Abdomen/GI: Inspection: abdomen appears normal, Bowel sounds: normal, in all quadrants, Palpation: soft, in all quadrants, mild abdominal tenderness, in the epigastric area. Vital Signs: 13:04 BP 120 / 70; Pulse 105; Resp 17; Temp 97.6(TE); Pulse Ox 100% on R/A; Weight 113.4 kg tw2 (R); Height 5 ft. 6 in. (167.64 cm); Pain 9/10; 14:35 BP 141 / 71; Pulse 82; Resp 18 S; Pulse Ox 100% on R/A; Pain 7/10; iw 16:10 BP 115 / 61; Pulse 73; Resp 16; Temp 98.2; Pulse Ox 100% on R/A; iw 13:04 Body Mass Index 40.35 (113.40 kg, 167.64 cm) tw2 MDM: 13:09 Patient medically screened. wa 15:23 Differential diagnosis: acute coronary syndrome, bowel obstruction, cholecystitis, wa Cholelithiasis, gastritis, Mesenteric ischemia or infarction, non-specific abd pain, pancreatitis. 16:00 Data reviewed: vital signs, nurses notes, lab test result(s), radiologic studies. Test ok interpretation: by ED physician or midlevel provider: labs noted for leukopenia at 3.2. otherwise wnl. CT shows fatty liver. no acute process. . Response to treatment: the patient's symptoms have markedly improved after treatment. ED course: pain significantly improved. states feels much better. noted leucopenia. viral illness. 16:13 Test interpretation: by ED physician or midlevel provider: EKG: Interp by nj: HR 89. wa sinus. nml axis. nml ST-T ranges. nml QRS. essentially nml study. 05/08 13:20 Order name: Basic Metabolic Panel 05/08 13:20 Order name: CBC with Diff 05/08 13:20 Order name: Hepatic Function 05/08 13:20 Order name: Lipase 05/08 13:21 Order name: NT PRO-BNP 05/08 13:21 Order name: Magnesium ok 05/08 13:21 Order name: PT-INR ok 05/08 13:21 Order name: Troponin (emerg Dept Use Only) ok 05/08 14:03 Order name: CBC with Automated Diff; Complete Time: 15:42 EDMS 05/08 14:07 Order name: Protime (+INR); Complete Time: 15:42 EDMS 05/08 14:34 Order name: Urine Dipstick--Ancillary (enter results) 05/08 15:02 Order name: Basic Metabolic Panel; Complete Time: 15:42 EDMS 05/08 15:02 Order name: Liver (Hepatic) Function; Complete Time: 15:42 EDMS 05/08 15:02 Order name: Lipase; Complete Time: 15:42 EDMS 05/08 13:20 Order name: IV Saline Lock; Complete Time: 14:16 ok 05/08 13:20 Order name: Labs collected and sent; Complete Time: 14:17 ok 05/08 13:21 Order name: XRAY Chest (1 view) ok 05/08 13:21 Order name: EKG; Complete Time: 13:24 05/08 13:21 Order name: Cardiac monitoring; Complete Time: 14:17 ok 05/08 13:22 Order name: CT Abd/Pelvis - Without Contrast ok 05/08 14:52 Order name: CT; Complete Time: 15:42 EDMS 05/08 14:52 Order name: RAD; Complete Time: 15:42 EDMS 05/08 15:03 Order name: Troponin (Emerg Dept Use Only); Complete Time: 15:42 EDMS 05/08 15:03 Order name: NT PRO-BNP; Complete Time: 15:42 EDMS 05/08 15:03 Order name: Magnesium; Complete Time: 15:42 EDMS 05/08 13:21 Order name: EKG - Nurse/Tech; Complete Time: 14:17 ok 05/08 13:21 Order name: O2 Sat Monitoring; Complete Time: 14:17 05/08 14:28 Order name: Labs - recollect needed; Complete Time: 14:32 ss Administered Medications: 14:20 Drug: NS 0.9% 1000 ml Route: IV; Rate: 1 bolus; Site: left antecubital; iw 16:00 Follow up: IV Status: Completed infusion iw 14:22 Drug: Zofran 4 mg Route: IVP; Site: left antecubital; iw 15:05 Follow up: Response: No adverse reaction iw 14:25 Drug: Pepcid 20 mg Route: IVP; Site: left antecubital; iw 15:00 Follow up: Response: No adverse reaction iw 14:34 Drug: Tylenol 1000 mg Route: PO; iw 15:10 Follow up: Response: No adverse reaction iw 14:34 Drug: fentaNYL (PF) 25 mcg Route: IVP; Site: left antecubital; iw 15:15 Follow up: Response: No adverse reaction; Pain is decreased iw Disposition: 05/08/19 16:03 Discharged to Home. Impression: acute abdominal pain, diarrhea. - Condition is Stable. - Discharge Instructions: Abdominal Pain, Adult, Vjox-qt-Osso, Diarrhea, Adult, Fxyn-kh-Uxhc. - Prescriptions for Zofran 4 mg Oral Tablet - take 1 tablet by ORAL route every 12 hours As needed; 20 tablet. Pepcid 20 mg Oral Tablet - take 1 tablet by ORAL route once daily for 10 days; 10 tablet. - Medication Reconciliation Form, Thank You Letter, Antibiotic Education, Prescription Opioid Use form. - Follow up: Arnaldo Dowell MD; When: 1 - 2 days; Reason: Recheck today's complaints. - Problem is new. - Symptoms have improved. - Notes: take tylenol for pain as needed as discussed. follow up with the gastro doctor but return here immediately if rapidly worsening concerns Signatures: Dispatcher [employer] EDEneida Lazaro RN RN Danica Bruce RN RN Maria Ines Ruiz RN RN tw2 Arnaldo Kinney MD MD ok Corrections: (The following items were deleted from the chart) 16:25 16:03 05/08/2019 16:03 Discharged to Home. Impression: acute abdominal pain; diarrhea. iw Condition is Stable. Forms are Medication Reconciliation Form, Thank You Letter, Antibiotic Education, Prescription Opioid Use. Follow up: Arnaldo Dowell; When: 1 - 2 days; Reason: Recheck today's complaints. Problem is new. Symptoms have improved. wa
--- NOTE | 2019-05-08 16:04 | ER ---
Nurse's Notes [facility] Name: Nanci Barros Age: 63 yrs Sex: Female : 1955 Arrival Date: 05/08/2019 Time: 13:01 Bed 16 Private MD: THIEN CHATMAN Diagnosis: acute abdominal pain;diarrhea Presentation: 05/08 13:02 Presenting complaint: Patient states: my stomach has this bad acid reflux it started tw2 last night, and now i have started with the diarrhea and its just burning all over. Transition of care: patient was not received from another setting of care. Onset of symptoms was May 08, 2019. Risk Assessment: Do you want to hurt yourself or someone else? Patient reports no desire to harm self or others. Initial Sepsis Screen: Does the patient meet any 2 criteria? HR > 90 bpm. No. Patient's initial sepsis screen is negative. Does the patient have a suspected source of infection? No. Patient's initial sepsis screen is negative. Care prior to arrival: None. 13:02 Method Of Arrival: Ambulatory tw2 13:02 Acuity: GET 3 tw2 Triage Assessment: 13:04 General: Appears obese, well groomed, Behavior is calm, cooperative, appropriate for tw2 age. Pain: Complains of pain in abdomen. GI: Reports indigestion, intolerance of fluids, intolerance of food. Historical: - Allergies: 13:04 PENICILLINS; tw2 - Home Meds: 13:04 telmisartan-hydrochlorothiazid 80-25 mg Oral tab once daily [Active]; nitrofurantoin tw2 macrocrystal 100 mg Oral cap [Active]; metformin 500 mg Oral tab daily [Active]; losartan 100 mg Oral tab once daily [Active]; amlodipine 5 mg tab 1 tab once daily [Active]; - PMHx: 13:04 acid reflux; Diabetes - NIDDM; Hypertension; psoriasis; tw2 - PSHx: 13:04 Cholecystectomy; right rotator cuff; left leg surger; tw2 - Immunization history:: Adult Immunizations. - Social history:: Smoking status: . - Ebola Screening: : Patient denies travel to an Ebola-affected area in the 21 days before illness onset. - Family history:: not pertinent. - Hospitalizations: : No recent hospitalization is reported. Screenin:00 Abuse screen: Denies threats or abuse. Denies injuries from another. Nutritional iw screening: No deficits noted. Tuberculosis screening: No symptoms or risk factors identified. Fall Risk IV access (20 points). Assessment: 14:00 General: Appears in no apparent distress. comfortable. Pain: Complains of pain in chest iw and abdomen Pain currently is 7 out of 10 on a pain scale. Neuro: Level of Consciousness is awake, alert, obeys commands, Oriented to person, place, time, situation, Moves all extremities. Full function. Cardiovascular: Patient's skin is warm and dry. Cardiovascular: Reports chest pain, nausea. Respiratory: Airway is patent Respiratory effort is even, unlabored. GI: Bowel sounds present X 4 quads. Abd is soft and non tender X 4 quads. Reports upper abdominal pain, diarrhea, nausea. Derm: Skin is intact, is healthy with good turgor. Musculoskeletal: Range of motion: intact in all extremities. 15:30 Reassessment: Patient appears in no apparent distress at this time. Patient and/or iw family updated on plan of care and expected duration. Pain level reassessed. Patient is alert, oriented x 3, equal unlabored respirations, skin warm/dry/pink. Patient states feeling better. Patient states symptoms have improved. Vital Signs: 13:04 BP 120 / 70; Pulse 105; Resp 17; Temp 97.6(TE); Pulse Ox 100% on R/A; Weight 113.4 kg tw2 (R); Height 5 ft. 6 in. (167.64 cm); Pain 9/10; 14:35 BP 141 / 71; Pulse 82; Resp 18 S; Pulse Ox 100% on R/A; Pain 7/10; iw 16:10 BP 115 / 61; Pulse 73; Resp 16; Temp 98.2; Pulse Ox 100% on R/A; iw 13:04 Body Mass Index 40.35 (113.40 kg, 167.64 cm) tw2 ED Course: 13:01 Patient arrived in ED. am2 13:02 THIEN CHATMAN is Private Physician. am2 13:03 Triage completed. tw2 13:05 Arm band placed on. tw2 13:08 Eneida Guaman, RN is Primary Nurse. iw 13:09 Arnaldo Kinney MD is Attending Physician. wa 13:47 EKG done, by specimen technician. reviewed by Arnaldo Kinney MD. at1 14:00 Patient has correct armband on for positive identification. iw 16:02 Arnaldo Dowell MD is Referral Physician. wa 16:20 No provider procedures requiring assistance completed. IV discontinued, intact, iw bleeding controlled, No redness/swelling at site. Pressure dressing applied. Administered Medications: 14:20 Drug: NS 0.9% 1000 ml Route: IV; Rate: 1 bolus; Site: left antecubital; iw 16:00 Follow up: IV Status: Completed infusion iw 14:22 Drug: Zofran 4 mg Route: IVP; Site: left antecubital; iw 15:05 Follow up: Response: No adverse reaction iw 14:25 Drug: Pepcid 20 mg Route: IVP; Site: left antecubital; iw 15:00 Follow up: Response: No adverse reaction iw 14:34 Drug: Tylenol 1000 mg Route: PO; iw 15:10 Follow up: Response: No adverse reaction iw 14:34 Drug: fentaNYL (PF) 25 mcg Route: IVP; Site: left antecubital; iw 15:15 Follow up: Response: No adverse reaction; Pain is decreased iw Outcome: 16:03 Discharge ordered by . wa 16:24 Discharged to home ambulatory. iw 16:24 Condition: good 16:24 Discharge instructions given to patient, Instructed on discharge instructions, follow up and referral plans. medication usage, Demonstrated understanding of instructions, follow-up care, medications, Prescriptions given X 2. 16:25 Patient left the ED. iw Signatures: Eneida Guaman RN WILMAR iw Tanya Leyva, backer up EKG Tat1 Maria Ines Ruiz RN RN tw2 Tanya Sultana am2 Arnaldo Kinney MD MD md
[2019-05-08 16:41] VITALS: O2SAT 100
[2019-05-08 16:44] VITALS: BP 115/61; TEMP 98.2
[2019-05-08 16:45] LABS: Urine Blood 2+ (NEG); Urine Glucose NEGATIVE (NEG); Urine Protein NEGATIVE (NEG); Urine pH 5.5 (5.0-7.0)
--- NOTE | 2019-05-09 07:54 | EKG ---
Test Date: 2019-05-08 Test Time: 13:42:35 Mail Examiner: MATTHEW MEASUREMENT RESULTS: Intervals: Rate: 89 ID: [id number] QRSD: 78 QT: 336 QTc: 408 [place]: P: 57 ID: [id number] QRS: 19 T: 12 INTERPRETIVE STATEMENTS: Normal sinus rhythm Normal ECG Compared to ECG 01/20/2019 15:12:35 No significant changes Electronically Signed On 05-09-19 07:54:33 USABILITY ARCHITECT by Hay Cline
== END 2019-05-08 16:25 | disposition home or self-care (01) ==
LOC: ER 12:58
DX: R19.7 Diarrhea, unspecified (principal); I10 Essential (primary) hypertension; E11.9 Type 2 diabetes mellitus without complications; Z88.0 Allergy status to penicillin
CPT/HCPCS: 96361; 93005; 85025; 80048; 36415; 83735; 85610; 80076; 81003; 84484; 83690; 83880; 74176; 71045; 96375; 96374; 99283; J3010; J7030; J2405

== ENCOUNTER 2019-07-26 20:22 | Emergency (ER) | payer MEDICARE ==
--- OUTSIDE RECORDS SUMMARY | 2019-07-26 20:24 | XMS REPORT ---
:1955 [facility] Address [address] [place] [address] Care Team Providers Name Role Phone Unavailable [...] NEGATIVE Leuk/mcL NEGATIVE DRUGS OF ABUSE SCREEN [id number] 13:56:00 Test Item Value Reference Range Comments [...] NEGATIVE SCcutoff <300 NG/ML RULE OUT AL [id number] 10:28:00 Test Item Value Reference Range Comments [...] numerical results may varyby method. BASIC METABOLIC [id number] 10:24:00 Test Item Value Reference Range Comments [...] (test code=CA) 9.0 MG/DL 8.5-10.1 HEPATIC FUNCTION [id number] 10:24:00 Test Item Value Reference Range Comments TOTAL PROTEIN (test code=PROT) 7.1 G/DL 6.4-8.2 ALBUMIN (test code=ALB) 3.6 G/DL 3.4-5.0 BILIRUBIN TOTAL (test code=BILT) 0.50 MG/DL 0.2-1.2 BILIRUBIN DIRECT (test code=BILD) 0.10 MG/DL 0.00-0.30 BILIRUBIN INDIRECT (test code=BILIND) 0.40 MG/DL 0.2-1.2 SGOT/AST (test code=AST) 22 Unit/L 15-37 SGPT/ALT (test code=ALT) 38 Unit/L 12-78 ALKALINE PHOSPHATASE TOTAL (test code=ALKP) 78 Unit/L 45-117 [id number] 10:24:00 Test Item Value Reference Range Comments LIPASE (test code=LIP) 93 Unit/L 114-286 URINALYSIS [id number] 10:11:00 Test Item Value Reference Range Comments [...] Leuk/mcL NEGATIVE code=LEUU) DRUGS OF ABUSE SCREEN [id number] 10:11:00 Test Item Value Reference Range Comments [...] (test code=METHAURN) SCcutoff <300 NG/ML CBC W/AUTO [id number] 10:07:00 Test Item Value Reference Range Comments [...] NO DIFF/SCN CRITERIA - XR CHEST 1 [id number] 09:28:00 Name: NINA NEELY [facility] [place] : 1955 Age/S: 63 / F [id number] [address] Unit #: [id number] Loc: [place] [address] Phys: Nash Osei MD Acct: [id number] Dis Date: Status: REG ER PHONE #: [phone] Exam Date: 07/12/2018919 FAX #: Reason: cp EXAMS: CPT : [id number] XR CHEST 1 V 21253 Fluoro Time: DAP (Gy m2): Air Kerma [...] PAGE 1 Signed Report Name: NINA NEELY [facility] : 1955 Age/S: 63 / F [id number] [address] Unit #: [id number] Loc: [place] [address] Phys: Nash Osei MD Acct: [id number] Dis Date: Status: REG ER PHONE #: [phone] Exam Date: 2018 FAX #: Reason: cp EXAMS: CPT: [id number] XR CHEST 1 V 53016 Fluoro Time: DAP (Gy m2): Air Kerma (mGy): <Continued> Technologist: Breanna Kapadia, RT(R); Aleks Yan RT(R)(MR) [facility] Date/Time: 2018 (0928) [email or web address] Orig Print D/T: S: 07/12/2018 (0951 ) PAGE 2 Signed Report
--- OUTSIDE RECORDS SUMMARY | 2019-07-26 20:24 | XMS REPORT | Summary of Care ---
:1955 Author Organization [facility] - [facility] Address [address] [place] [address] Care Team Providers Name Role Phone Doug Wang MD Primary Care Provider Nash Scanlon MD Unavailable Bandar Garcia Unavailable Praful Dukes MD Unavailable Arnaldo Naqvi Unavailable Reason for Visit Reason Comments Follow-up cold Encounter Details Date Type Department Care Team Description 07/02/2019 [facility] Visit [facility] Doug Wang Bacterial URI (Primary Dx); Medicine - Leander Barnes MD Acute bacterial bronchitis [address] [place], [place] [phone] Allergies Active Allergy Reactions Severity Noted Date Comments Penicillin Rash, Shortness of Breath 02/02/2017 documented as of this encounter (statuses as of 07/02/2019) Medications Medication Sig Dispensed Refills Start Date End Date Status metformin ER 500 mg 24 0 06/20/2017 Active hr tablet Blood-Glucose Meter Check glucose 1 Kit 0 09/07/2017 Active (ONETOUCH ULTRA2) Kit once daily before breakfast; Diagnosis code E11.9 aug betamethasone Apply to 45 g 6 01/19/2018 Active dipropionate 0.05 % area(s) at ointmentIndications: bedtime. Lichen sclerosus ONETOUCH ULTRA BLUE Check glucose 100 Strip 3 11/10/2018 Active TEST STRIP once daily stripIndications: before Controlled type 2 breakfast; diabetes mellitus ICD-10 code without complication, E11.9 without long-term current use of insulin ONE TOUCH DELICA 33 Check glucose 100 Each 3 11/10/2018 Active gauge MiscIndications: once daily Controlled type 2 before diabetes mellitus breakfast; without complication, ICD-10 code without long-term E11.9 current use of insulin AMLODIPINE 5 mg TAKE 1 TABLET BY 90 tablet 1 02/14/2019 Active tabletIndications: MOUTH DAILY Essential hypertension mirabegron (MYRBETRIQ) Take 1 tablet by 30 tablet 0 03/01/2019 Active 25 mg mouth daily. tabletIndications: Urinary frequency, Urge incontinence omeprazole 40 mg Take 1 capsule 90 capsule 1 03/04/2019 Active capsuleIndications: by mouth daily. Gastroesophageal reflux disease, esophagitis presence not specified telmisartan-hydrochloro Take 1 tablet by 90 tablet 1 05/11/2019 Active thiazide 40-12.5 mg per mouth daily. tabletIndications: Essential hypertension clobetasoL 0.05 % Apply to 60 g 1 06/07/2019 Active ointmentIndications: area(s) 2 (two) Lichen simplex times daily. chronicus documented as of this encounter (statuses as of 07/02/2019) Active Problems Problem Noted Date Endometrial polyp 02/28/2019 Overview: 05/04/19 - in office hysteroscopy revealed three benign endometrial polyps and an atrophic endometrial lining. Histology revealed benign endometrial polyps and inactive endometrium c/w atrophy. Fatty liver 02/19/2019 Abdominal pain 02/15/2019 Pneumonia 02/14/2019 LASHAY (acute kidney injury) 10/29/2018 Obesity (BMI 30-39.9) 10/29/2018 Pancytopenia 10/16/2018 ASCUS of cervix with negative high risk HPV 08/31/2018 Overview: 08/17/18 - pap smear ASCUS with negative HPV Other urinary incontinence 01/19/2018 Lichen simplex chronicus 06/18/2017 Vulvar lesion 06/15/2017 Abnormal EKG 06/03/2017 Vulvar itching 05/13/2017 Vulvar rash 05/13/2017 Screening for colorectal cancer 02/08/2017 Overview: Added automatically from request for surgery [id number] Diabetes mellitus type 2, controlled, without complications 02/04/2017 Essential hypertension 02/04/2017 GERD (gastroesophageal reflux disease) 02/04/2017 documented as of this encounter (statuses as of 07/02/2019) Immunizations Name Administration Dates Next Due Pneumococcal Polysaccharide, PPSV23 (PNEUMOVAX) 05/23/2016, 05/23/2009 documented as of this encounter Social History Tobacco Use Types Packs/Day Years Used Date Never Smoker Smokeless Tobacco: Never Used Alcohol Use Drinks/Week oz/Week Comments No Sex Assigned at Date Recorded Not on file Job Start Date Occupation Industry Not on file Not on file Not on file Travel History Travel Start Travel End No recent travel history available. documented as of this encounter Last Filed Vital Signs Vital Sign Reading Time Taken Comments Blood Pressure 122/75 07/02/2019 2:03 PM TANK HOUSE OPERATOR HELPER Pulse 98 07/02/2019 2:03 PM TANK HOUSE OPERATOR HELPER Temperature 36.6 C (97.8 F) 07/02/2019 2:03 PM TANK HOUSE OPERATOR HELPER Respiratory Rate - - Oxygen Saturation - - Inhaled Oxygen Concentration - - Weight 115.7 kg (255 lb) 07/02/2019 2:03 PM TANK HOUSE OPERATOR HELPER Height 167.6 cm (5' 6") 07/02/2019 2:03 PM TANK HOUSE OPERATOR HELPER Body Mass Index 41.16 07/02/2019 2:03 PM TANK HOUSE OPERATOR HELPER documented in this encounter Progress Notes Doug Wang MD - 07/02/2019 2:00 PM CST Cc: Chief Complaint Patient presents with Follow-up cold HPI Nanci Paradise Barros is a 64 year old female who presents for ER f/u of URI symptoms including cough, nasal congestion and rhinorrhea, sore throat, and wheezing. She went to [facility] on 06/25/19 for evaluation of these symptoms. The patient underwent the following tests: CXR and she was negative for influenza. The patient was diagnosed with bronchitis and URI. Treatments in the ER included: None. At discharge the patient was instructed to take the following medications: Z-karuna and an albuterol inhaler. The patient was told to follow-up with her PCP. Since the ER visit the patient has experienced the following: Resolutions of her symptoms. Her cough, nasal congestion, rhinorrhea, sore throat, and wheezing have all resolved. She is feeling back to herself. Allergies Nanci is allergic to penicillin. Medications Outpatient Medications Prior to Visit Medication Sig Dispense Refill clobetasoL 0.05 % ointment Apply to area(s) 2 (two) times daily. 60 g 1 telmisartan-hydrochlorothiazide 40-12.5 mg per tablet Take 1 tablet by mouth daily. 90 tablet 1 omeprazole 40 mg capsule Take 1 capsule by mouth daily. 90 capsule 1 mirabegron (MYRBETRIQ) 25 mg tablet Take 1 tablet by mouth daily. 30 tablet 0 AMLODIPINE 5 mg tablet TAKE 1 TABLET BY MOUTH DAILY 90 tablet 1 ONE TOUCH DELICA 33 gauge Misc Check glucose once daily before breakfast; ICD-10 code E11.9 100 Each 3 ONETOUCH ULTRA BLUE TEST STRIP strip Check glucose once daily before breakfast; ICD-10 code E11.9 100 Strip 3 aug betamethasone dipropionate 0.05 % ointment Apply to area(s) at bedtime. 45 g 6 Blood-Glucose Meter (GucashTOUCH ULTRA2) Kit Check glucose once daily before breakfast; Diagnosis code E11.9 1 Kit 0 metformin ER 500 mg 24 hr tablet No facility-administered medications prior to visit. Histories Past Medical History: Diagnosis Date Abnormal EKG 06/03/2017 LASHAY (acute kidney injury) 10/29/2018 ASCUS of cervix with negative high risk HPV 08/31/2018 Diabetes mellitus Esophageal reflux Essential hypertension 02/04/2017 Fatty liver 02/19/2019 Fatty liver 02/19/2019 History of diverticulitis Other urinary incontinence 01/19/2018 Pancytopenia 10/16/2018 Pancytopenia 10/16/2018 Past Surgical History: Procedure Laterality Date CHOLECYSTECTOMY COLONOSCOPY N/A 03/03/2017 Surgeon: Humaira Monge MD; Location: [facility] LEG/ANKLE SURGERY PROC UNLISTED SHOULDER ARTHROSCOPY Right SURGICAL HISTORY OTHER (SHX) Right leg surgery Social History Socioeconomic History Marital status: Spouse name: Not on file Number of children: Not on file Years of education: Not on file Highest education level: Not on file Occupational History Not on file Social Needs Financial resource strain: Not on file Food insecurity: Worry: Not on file Inability: Not on file Transportation needs: Medical: Not on file Non-medical: Not on file Tobacco Use Smoking status: Never Smoker Smokeless tobacco: Never Used Substance and Sexual Activity Alcohol use: No Drug use: No Sexual activity: Not Currently Partners: Male Lifestyle Physical activity: Days per week: Not on file Minutes per session: Not on file Stress: Not on file Relationships Social connections: Talks on phone: Not on file Gets together: Not on file Attends jewish service: Not on file Active member of club or organization: Not on file Attends meetings of clubs or organizations: Not on file Relationship status: Not on file Intimate partner violence: Fear of current or ex partner: Not on file Emotionally abused: Not on file Physically abused: Not on file Forced sexual activity: Not on file Other Topics Concern Not on file Social History Narrative No domestic abuse or violence. Family History Problem Relation Age of Onset Hypertension Mother Hypertension Father Cancer Father Lung Diabetes Sister Diabetes Brother Asthma Brother Cancer Maternal Aunt Stomach Arthritis NoFHx defects NoFHx Breast Cancer NoFHx Colon Cancer NoFHx Ovarian Cancer NoFHx Uterine Cancer NoFHx Depression NoFHx Genetic NoFHx Heart NoFHx High cholesterol NoFHx Mental retardation NoFHx Neurological NoFHx Osteoporosis NoFHx Psychiatry NoFHx Review of Systems Constitutional: Negative. HENT: Negative. Eyes: Negative. Respiratory: Negative. Cardiovascular: Negative. Gastrointestinal: Negative. Genitourinary: Negative. Musculoskeletal: Positive for arthralgias. Skin: Negative. Neurological: Negative. Psychiatric/Behavioral: Negative. Endocrine: Endocrine negative Vital Signs BP 122/75 | Pulse 98 | Temp 36.6 C (97.8 F) (Tympanic) | Ht 5' 6" (1.676 m) | Wt 255 lb (115.7 kg) | BMI 41.16 kg/m Physical Exam Constitutional: She appears well-developed and well-nourished. No coughing HENT: Right Ear: Tympanic membrane and ear canal normal. Left Ear: Tympanic membrane and ear canal normal. Nose: Mucosal edema present. No rhinorrhea. Right sinus exhibits no maxillary sinus tenderness and no frontal sinus tenderness. Left sinus exhibits no maxillary sinus tenderness and no frontal sinus tenderness. Mouth/Throat: Mucous membranes are normal. No oropharyngeal exudate, posterior oropharyngeal edema or posterior oropharyngeal erythema. Neck: Neck supple. Cardiovascular: Normal rate, regular rhythm, normal heart sounds and intact distal pulses. No murmur heard. Pulmonary/Chest: Effort normal. No respiratory distress. She has no wheezes. She has no rales. Lymphadenopathy: She has no cervical adenopathy. Skin: Skin is warm and dry. No rash noted. Nursing note and vitals reviewed. Assessment/Plan Nanci was seen today for ER follow-up. Diagnoses and all orders for this visit: ICD-10-CM ICD-9-CM 1. Bacterial URI J06.9 465.9 B96.89 041.9 2. Acute bacterial bronchitis J20.8 466.0 B96.89 041.9 Her condition is much improved/essentially resolved. Plan of care, desired health behaviors, goals, Ddx, and any prescribed medications were discussed with the patient. This visit did not involve counseling and coordination that comprised more than 50% of the visit time. Education resources and self-management tools were provided and reviewed with the AVS. Patient/guardian/family verbalized understanding and agrees to the plan of care. Barriers tocare: None. Ability to manage care: Good. Advanced care planning (living will) information was not given/offered to the patient to review for discussion at a future visit. If applicable, the [facility] database was accessed to review any controlled substance prescription claims data. If the patient is taking prescribed medications, the [facility] prescription claims data in [employer] was reviewed to assess patient compliance with the medication treatment plan. Follow-up: Return in about 1 month (around 07/31/2019) for routine follow-up ( fasting). Follow-up sooner if any problems or concerns. documented in this encounter Plan of Treatment Date Type Specialty Care Team Description 10/02/2019 Office Visit Family Medicine Doug Wang MD [address] [place] [address] [place] [phone] Health Maintenance Due Date Last Done Comments DTaP,Tdap,and Td Vaccines 1966 (1 - Tdap) Zoster Recombinant Vaccine 2005 (SHINGRIX) (1 of 2) FOOT EXAM 05/23/2019 05/23/2018 EYE EXAM 08/10/2019 07/25/2017 Postponed from 07/25/2018 (Patient Does Not Have Time) HgA1C 08/15/2019 02/14/2019, 10/03/2018, 02/02/2017 LDL-C 10/04/2019 10/03/2018, 02/02/2017 URINE MICROALBUMIN 10/04/2019 10/03/2018, 02/02/2017 Breast Cancer Screening 12/20/2019 12/19/2018, 07/17/2012 (MAMMOGRAM) INFLUENZA VACCINE (#1) 2020 Postponed from 01/21/2019 (Refused) CREATININE (SERUM) 02/16/2020 02/15/2019, 02/14/2019, 11/16/2018, Additional history exists PAP SMEAR 08/17/2021 08/17/2018, 08/17/2018, 05/18/2012 COLONOSCOPY 03/03/2027 03/03/2017 PNEUMOCOCCAL 0-64 YEARS Completed 05/23/2016, 05/23/2009 COMBINED SERIES HEPATITIS C (HCV) SCREEN Completed 11/16/2018 documented as of this encounter Goals Goal Patient Goal Associated Recent Patient-Stated? Author Type Problems Progress weight down General Yes Felipe, to 247 lbs Doug Barnes MD by October of 2017 documented as of this encounter Results Not on filedocumented in this encounter Visit Diagnoses Diagnosis Bacterial URI - Primary Acute bacterial bronchitis Acute bronchitis documented in this encounter Insurance Payer Benefit Plan / Subscriber ID Effective Dates Phone Address Type Group [facility] [id number] 2019-Present O HEALTHCARE/AARP (Work) documented as of this encounter
--- OUTSIDE RECORDS SUMMARY | 2019-07-26 20:24 | XMS REPORT | Summary of Care ---
:1955 Author Organization [facility] - [facility] Address [address] [place] [address] Care Team Providers Name Role Phone Doug Wang MD Primary Care Provider Nash Scanlon MD Unavailable Bandar Garcia Unavailable Praful Dukes MD Unavailable Arnaldo Naqvi Unavailable Reason for Visit Reason Comments Rx Concern/Question Encounter Details Date Type Department Care Team Description 06/05/2019 Telephone [facility], Rx Concern/Question Healthcare- Leander Cao MD [address] [place] [address], [address] [facility] [address] [phone] Allergies Active Allergy Reactions Severity Noted Date Comments Penicillin Rash, Shortness of Breath 02/02/2017 documented as of this encounter (statuses as of 06/07/2019) Medications Medication Sig Dispensed Refills Start Date [...] as of this encounter (statuses as of 06/07/2019) Active Problems Problem Noted Date Endometrial polyp [...] Overview: Added automatically from request for surgery [id number] Diabetes mellitus type 2, controlled, without complications 02/04/2017 Essential hypertension 02/04/2017 GERD (gastroesophageal reflux disease) 02/04/2017 documented as of this encounter (statuses as of 06/07/2019) Immunizations Name Administration Dates Next Due Pneumococcal [...] Treatment Date Type Specialty Care Team Description 06/12/2019 Office Visit Family Medicine Doug Wang MD [address] [place] [address] [place] [phone] Health Maintenance Due Date Last Done [...] Type Problems Progress weight down General Yes Wise, to 247 lbs Doug Barnes MD by October of 2017 documented as of this encounter Results Not on filedocumented in this encounter Visit Diagnoses Diagnosis Lichen simplex chronicus - Primary Lichenification and lichen simplex chronicus documented in this encounter Insurance Payer Benefit Plan / Subscriber ID Effective Phone Address Type Group Dates [place] [employer] MEDICARE [id number] 2017-Prese Medicare Adv HEALTHCARE - COMPLETE nt [facility] MEDICARE documented as of this encounter
--- OUTSIDE RECORDS SUMMARY | 2019-07-26 20:25 | XMS REPORT | Summary of Care ---
:1955 Author Organization [facility] - [facility] Address [address] [place] [address] Care Team Providers Name Role Phone Doug Wang MD Primary Care Provider Nash Scanlon MD Unavailable Bandar Garcia Unavailable Praful Dukes MD Unavailable Arnaldo Naqvi Unavailable Reason for Visit Reason Comments Refill Request Encounter Details Date Type Department Care Team Description 07/07/2019 Refill [facility] Family Medicine Doug Wang MD Refill Request - [address] [address] [place] [address] Allergies Active Allergy Reactions Severity Noted Date Comments Penicillin Rash, Shortness of Breath 02/02/2017 documented as of this encounter (statuses as of 07/09/2019) Medications Medication Sig Dispensed Refills Start Date End Date Status metformin ER 500 mg 0 06/20/2017 Active 24 hr tablet Blood-Glucose Meter Check glucose 1 [...] glucose 100 Each 3 11/10/2018 Active gauge once daily MiscIndications: before Controlled type 2 breakfast; diabetes mellitus ICD-10 code without complication, E11.9 without long-term current use of insulin mirabegron Take 1 tablet 30 tablet 0 03/01/2019 Active (MYRBETRIQ) 25 mg by mouth tabletIndications: daily. Urinary frequency, Urge incontinence telmisartan-hydrochlo Take 1 tablet 90 tablet 1 05/11/2019 Active rothiazide 40-12.5 mg by mouth per daily. tabletIndications: Essential hypertension clobetasoL 0.05 % Apply to 60 g 1 06/07/2019 Active ointmentIndications: area(s) 2 Lichen simplex (two) times chronicus daily. OMEPRAZOLE 40 mg TAKE 1 CAPSULE 90 capsule 1 07/09/2019 Active capsuleIndications: BY MOUTH Gastroesophageal DAILY reflux disease, esophagitis presence not specified AMLODIPINE 5 mg TAKE 1 TABLET 90 tablet 1 07/09/2019 Active tabletIndications: BY MOUTH Essential DAILY hypertension AMLODIPINE 5 mg TAKE 1 TABLET 90 tablet 1 02/14/2019 07/09/19 Discontinued tabletIndications: BY MOUTH 20 Essential DAILY hypertension omeprazole 40 mg Take 1 capsule 90 capsule 1 03/04/2019 07/09/19 Discontinued capsuleIndications: by mouth 20 Gastroesophageal daily. reflux disease, esophagitis presence not specified documented as of this encounter (statuses as of 07/09/2019) Active Problems Problem Noted Date Endometrial polyp [...] Overview: Added automatically from request for surgery [id number] Diabetes mellitus type 2, controlled, without complications 02/04/2017 Essential hypertension 02/04/2017 GERD (gastroesophageal reflux disease) 02/04/2017 documented as of this encounter (statuses as of 07/09/2019) Immunizations Name Administration Dates Next Due Pneumococcal [...] Office Visit Family Medicine Doug Wang MD [address] [place] [address] [place] [address] Health Maintenance Due Date Last Done [...] filedocumented in this encounter Visit Diagnoses Diagnosis Gastroesophageal reflux disease, esophagitis presence not specified Essential hypertension Unspecified essential hypertension documented in this encounter Insurance Payer Benefit Plan / Subscriber ID Effective Dates Phone Address Type Group [facility] [id number] 2019-Present PPO HEALTHCARE/AARP documented as of this encounter
--- OUTSIDE RECORDS SUMMARY | 2019-07-26 20:25 | XMS REPORT | Summary of Care ---
:1955 Author Organization [facility] - [facility] Address [address] [place] [address] Care Team Providers Name Role Phone Doug Wang MD Primary Care Provider Nash Scanlon MD Unavailable Bandar Garcia Unavailable Praful Dukes MD Unavailable Arnaldo Naqvi Unavailable Reason for Visit Reason Comments Follow-up cold Encounter Details Date Type Department Care Team Description 07/02/2019 Office Visit [facility] Family Doug Wang Bacterial URI (Primary Dx); Medicine - Leander Barnes MD Acute bacterial bronchitis 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 AND ANALYSIS MANAGER Pulse 98 07/02/2019 2:03 PM PLANNING AND ANALYSIS MANAGER Temperature 36.6 C (97.8 F) 07/02/2019 2:03 PM PLANNING AND ANALYSIS MANAGER Respiratory Rate - - Oxygen Saturation - - Inhaled Oxygen Concentration - - Weight 115.7 kg (255 lb) 07/02/2019 2:03 PM PLANNING AND ANALYSIS MANAGER Height 167.6 cm (5' 6") 07/02/2019 2:03 PM PLANNING AND ANALYSIS MANAGER Body Mass Index 41.16 07/02/2019 2:03 PM PLANNING AND ANALYSIS MANAGER documented in this encounter Progress Notes Doug Wang MD - 07/02/2019 2:00 PM CST Cc: Chief Complaint Patient presents with Follow-up cold HPI Nanci Paradise Barros is a 64 year old female who presents for ER f/u of URI symptoms including cough, nasal congestion and rhinorrhea, sore throat, and wheezing. She went to [facility] on 06/25/19 for evaluation of these symptoms. [...] at bedtime. 45 g 6 Blood-Glucose Meter ([employer]OUCH ULTRA2) Kit Check glucose once daily before [...] N/A 03/03/2017 Surgeon: Humaira Monge MD; Location: [facility] LEG/ANKLE SURGERY PROC UNLISTED SHOULDER ARTHROSCOPY Right [...] file Gets together: Not on file Attends oriental orthodox service: Not on file Active member of [...] at a future visit. If applicable, the [facility] database was accessed to review any controlled substance prescription claims data. If the patient is taking prescribed medications, the [facility] prescription claims data in [employer] was reviewed to assess patient compliance with the medication treatment plan. Follow-up: Return in about 1 month (around 07/31/2019) for routine follow-up ( fasting). Follow-up sooner if any problems or concerns. documented in this encounter Plan of Treatment Date Type Specialty Care Team Description 10/02/2019 Office Visit Family Medicine Doug Wang MD [address] [place] [address] [place] [phone] Health Maintenance Due Date Last Done Comments [...] ID Effective Dates Phone Address Type Group [facility] [id number] 2019-Present [employer] (Work) documented as of this encounter
--- OUTSIDE RECORDS SUMMARY | 2019-07-26 20:25 | XMS REPORT | Summary of Care ---
:1955 Author Organization [facility] - [facility] Address [address] [place] [address] Care Team Providers Name Role Phone Doug Wang MD Primary Care Provider Nash Scanlon MD Unavailable Bandar Garcia Unavailable Praful Dukes MD Unavailable Arnaldo Naqvi Unavailable Encounter Details Date Type Department Care Team Description 07/09/2019 Orders Only [facility] Doctor Unassigned, No [address] [facility] [place] [address] [address] [place] [address] Allergies Active Allergy Reactions Severity Noted Date Comments Penicillin Rash, Shortness of Breath 02/02/2017 documented as of this encounter (statuses as of 07/09/2019) Medications Medication Sig Dispensed Refills Start Date End Date Status metformin ER 500 mg 24 0 06/20/2017 Active hr tablet Blood-Glucose Meter Check glucose 1 Kit 0 09/07/2017 Active (ONETOUCH ULTRA2) Kit once daily before breakfast; Diagnosis code E11.9 dec betamethasone Apply to 45 g 6 01/19/2018 [...] Overview: Added automatically from request for surgery [id number] Diabetes mellitus type 2, controlled, without complications [...] Office Visit Family Medicine Doug Wang MD [address] [place] [address] [place] [address] Health Maintenance Due Date Last Done [...] Procedure Name Priority Date/Time Associated Diagnosis Comments EXTERNAL PROVIDER Routine 07/09/2019 12:01 AM 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
--- NOTE | 2019-07-26 22:44 | ER ---
Nurse's Notes [facility] Name: Nanci Barros Age: 64 yrs Sex: Female : 1955 Arrival Date: 07/26/2019 Time: 20:23 Bed 30 Private MD: Diagnosis: Myalgia Presentation: 07/25 20:40 Chief complaint: Patient states: left side abdominal pain for 2 days now. Pt states Hx wh of kidney stones. Coronavirus screen: The patient has NOT traveled to a country currently being monitored by the CDC within the last 14 days. Ebola Screen: Patient negative for fever greater than or equal to 101.5 degrees Fahrenheit, and additional compatible Ebola Virus Disease symptoms Patient denies exposure to infectious person. Initial Sepsis Screen: Does the patient meet any 2 criteria? HR > 90 bpm. Does the patient have a suspected source of infection? Yes: Acute abdominal pain. Risk Assessment: Do you want to hurt yourself or someone else? Patient reports no desire to harm self or others. 20:40 Method Of Arrival: Ambulatory 20:40 Acuity: GET 3 21:06 Onset of symptoms was July 25, 2019. Historical: - Allergies: 21:03 PENICILLINS; - Home Meds: 21:03 amlodipine 5 mg tab 1 tab once daily [Active]; losartan 100 mg Oral tab once daily [Active]; metformin 500 mg Oral tab daily [Active]; nitrofurantoin macrocrystal 100 mg Oral cap [Active]; telmisartan-hydrochlorothiazid 80-25 mg Oral tab once daily [Active]; - PMHx: 21:03 acid reflux; Diabetes - NIDDM; Hypertension; psoriasis; - PSHx: 21:03 Cholecystectomy; - Immunization history:: Adult Immunizations up to date. - Social history:: Smoking status: Patient/guardian denies using. Screenin:05 Abuse screen: Denies threats or abuse. Denies injuries from another. Nutritional screening: No deficits noted. Tuberculosis screening: No symptoms or risk factors identified. Fall Risk None identified. Assessment: 21:04 General: Appears in no apparent distress. Behavior is calm, cooperative, appropriate for age. Pain: Complains of pain in left upper quadrant and left lower quadrant Pain does not radiate. Pain currently is 8 out of 10 on a pain scale. Quality of pain is described as sharp, Pain began 2-3 days ago. Neuro: Level of Consciousness is awake, alert, obeys commands, Oriented to person, place, time, situation, Appropriate for age. Cardiovascular: Heart tones S1 S2. Respiratory: Airway is patent Respiratory effort is even, unlabored, Respiratory pattern is regular, symmetrical, Breath sounds are clear bilaterally. GI: Abdomen is flat, non-distended. GI: Bowel sounds present X 4 quads. Abd is soft and non tender X 4 quads. GI: Reports lower abdominal pain. : No signs and/or symptoms were reported regarding the genitourinary system. EENT: No signs and/or symptoms were reported regarding the EENT system. Derm: Skin is intact, is healthy with good turgor, Skin is pink, warm \T\ dry. normal. Musculoskeletal: Circulation, motion, and sensation intact. Vital Signs: 20:40 BP 109 / 82; Pulse 98; Resp 18; Temp 98.4; Pulse Ox 100% ; Weight 113.4 kg; Height 5 wh ft. 6 in. (167.64 cm); Pain 8/10; 22:48 BP 128 / 64; Pulse 89; Resp 17; Temp 98; Pulse Ox 99% on R/A; rv 20:40 Body Mass Index 40.35 (113.40 kg, 167.64 cm) wh Allison Coma Score: 22:48 Eye Response: spontaneous(4). Verbal Response: oriented(5). Motor Response: obeys rv commands(6). Total: 15. ED Course: 20:23 Patient arrived in ED. cl3 20:44 Martinez Johnston FNP-C is PSYCHIATRICP. la1 20:44 Osei Washburn MD is Attending Physician. la1 21:02 Triage completed. wh 21:05 Arm band placed on right wrist. wh 21:06 Patient has correct armband on for positive identification. Bed in low position. Call light in reach. Side rails up X 1. Pulse ox on. NIBP on. 21:08 Chest Single View XRAY In Process Unspecified. EDMS 21:45 Ender Vance RN is Primary Nurse. rv 22:48 No provider procedures requiring assistance completed. Missed attempt(s): 20 gauge in rv right forearm. Patient did not have IV access during this emergency room visit. Administered Medications: No medications were administered Outcome: :43 Discharge ordered by . nancy 22:49 Discharged to home ambulatory. rv 22:49 Condition: good 22:49 Discharge instructions given to patient, Instructed on discharge instructions, follow up and referral plans. Demonstrated understanding of instructions, follow-up care. 22:49 Patient left the ED. rv Signatures: Dispatcher [employer] EDMS Martinez Johnston, FORMATION TESTING OPERATOR-C FORMATION TESTING OPERATOR-Cla1 Mg Ricci Ronaldo, RN RN rv Johanna Kwok cl3
--- NOTE | 2019-07-26 22:44 | EDPHYS ---
Physician Documentation [facility] Name: Nanci Barros Age: 64 yrs Sex: Female : 1955 Arrival Date: 07/26/2019 Time: 20:23 Bed 30 Private MD: ED Physician Osei Washburn HPI: 07/25 21:04 This 64 yrs old Black Female presents to ER via Ambulatory with complaints of Side Pain.la1 21:04 The patient or guardian reports flu symptoms, low-grade fever, myalgias. Onset: The la1 symptoms/episode began/occurred 2 day(s) ago. Severity of symptoms: At their worst the symptoms were mild. Modifying factors: The symptoms are alleviated by nothing, the symptoms are aggravated by nothing. Associated signs and symptoms: Pertinent negatives: chest pain, diarrhea, ear ache, rhinorrhea, sore throat, vomiting. The patient has not experienced similar symptoms in the past. family ill with the flu. Historical: - Allergies: 21:03 PENICILLINS; - Home Meds: 21:03 amlodipine 5 mg tab 1 tab once daily [Active]; losartan 100 mg Oral tab once daily [Active]; metformin 500 mg Oral tab daily [Active]; nitrofurantoin macrocrystal 100 mg Oral cap [Active]; telmisartan-hydrochlorothiazid 80-25 mg Oral tab once daily [Active]; - PMHx: 21:03 acid reflux; Diabetes - NIDDM; Hypertension; psoriasis; - PSHx: 21:03 Cholecystectomy; - Immunization history:: Adult Immunizations up to date. - Social history:: Smoking status: Patient/guardian denies using. ROS: 21:05 Eyes: Negative for injury, pain, redness, and discharge, ENT: Negative for injury, la1 pain, and discharge, Neck: Negative for injury, pain, and swelling, Cardiovascular: Negative for chest pain, palpitations, and edema, Respiratory: Negative for shortness of breath, cough, wheezing, and pleuritic chest pain, Abdomen/GI: Negative for abdominal pain, nausea, vomiting, diarrhea, and constipation, Back: Negative for injury and pain, MS/Extremity: Negative for injury and deformity, Skin: Negative for injury, rash, and discoloration, Neuro: Negative for headache, weakness, numbness, tingling, and seizure. 21:05 Constitutional: Positive for body aches, chills. Exam: 21:05 Constitutional: This is a well developed, well nourished patient who is awake, alert, la1 and in no acute distress. Head/Face: Normocephalic, atraumatic. Eyes: Pupils equal round and reactive to light, extra-ocular motions intact. Lids and lashes normal. Conjunctiva and sclera are non-icteric and not injected. Cornea within normal limits. Periorbital areas with no swelling, redness, or edema. ENT: Nares patent. No nasal discharge, no septal abnormalities noted. Tympanic membranes are normal and external auditory canals are clear. Oropharynx with no redness, swelling, or masses, exudates, or evidence of obstruction, uvula midline. Mucous membranes moist. Neck: Trachea midline, no thyromegaly or masses palpated, and no cervical lymphadenopathy. Supple, full range of motion without nuchal rigidity, or vertebral point tenderness. No Meningismus. Chest/axilla: Normal chest wall appearance and motion. Nontender with no deformity. No lesions are appreciated. Cardiovascular: Regular rate and rhythm with a normal S1 and S2. No gallops, murmurs, or rubs. Normal PMI, no JVD. No pulse deficits. Respiratory: Lungs have equal breath sounds bilaterally, clear to auscultation Abdomen/GI: Soft, non-tender, with normal bowel sounds. No distension or tympany. No guarding or rebound. No evidence of tenderness throughout. Skin: Warm, dry with normal turgor. Normal color with no rashes, no lesions, and no evidence of cellulitis. MS/ Extremity: Pulses equal, no cyanosis. Neurovascular intact. Full, normal range of motion. Vital Signs: 20:40 BP 109 / 82; Pulse 98; Resp 18; Temp 98.4; Pulse Ox 100% ; Weight 113.4 kg; Height 5 wh ft. 6 in. (167.64 cm); Pain 8/10; 22:48 BP 128 / 64; Pulse 89; Resp 17; Temp 98; Pulse Ox 99% on R/A; rv 20:40 Body Mass Index 40.35 (113.40 kg, 167.64 cm) wh Allison Coma Score: 22:48 Eye Response: spontaneous(4). Verbal Response: oriented(5). Motor Response: obeys rv commands(6). Total: 15. MDM: 21:19 Patient medically screened. la1 22:42 Data reviewed: vital signs, nurses notes, lab test result(s), radiologic studies, and la1 as a result, I will discharge patient. Data interpreted: Pulse oximetry: on room air is 100 %. Interpretation: normal. Counseling: I had a detailed discussion with the patient and/or guardian regarding: the historical points, exam findings, and any diagnostic results supporting the discharge/admit diagnosis, lab results, radiology results, the need for outpatient follow up, a family practitioner, to return to the emergency department if symptoms worsen or persist or if there are any questions or concerns that arise at home. ED course: staff and phlebotomy unable to obtain labs but pt tolerating PO fluids, no UTI, no pneumonia. Feeling better, no abd tenderness, will have FU with PCP and given strict return precautions. 07/25 20:56 Order name: Flu la1 07/25 20:56 Order name: Chest Single View XRAY la1 07/25 21:56 Order name: Urine Dipstick--Ancillary (enter results) ar5 07/25 20:56 Order name: Urine Dipstick-Ancillary (obtain specimen); Complete Time: 21:58 la1 Administered Medications: No medications were administered Disposition: 07/26 03:51 Co-signature as Attending Physician, Osei Washburn MD I agree with the assessment and tw4 plan of care. Disposition: 07/26/19 22:43 Discharged to Home. Impression: Myalgia. - Condition is Stable. - Discharge Instructions: Musculoskeletal Pain, Muscle Pain, Adult. - Medication Reconciliation Form, Thank You Letter form. - Follow up: Private Physician; When: 2 - 3 days; Reason: Recheck today's complaints, Re-evaluation by your physician. - Problem is new. - Symptoms have improved. Signatures: Dispatcher [employer] EDMS Martinez Johnston, FELIPE-Susan BRAKE SHOE REBUILDER-Cla1 Mg Ricci Terrence, MD MD tw4 Ender Vance, RN RN rv Corrections: (The following items were deleted from the chart) 07/25 22:49 22:43 07/26/2019 22:43 Discharged to Home. Impression: Myalgia. Condition is Stable. rv Forms are Medication Reconciliation Form, Thank You Letter, Antibiotic Education, Prescription Opioid Use. Follow up: Private Physician; When: 2 - 3 days; Reason: Recheck today's complaints, Re-evaluation by your physician. Problem is new. Symptoms have improved. la1
[2019-07-26 23:05] VITALS: BP 128/64; TEMP 98; O2SAT 99
[2019-07-26 23:44] LABS: Urine Blood NEGATIVE (NEG); Urine Glucose NEGATIVE (NEG); Urine Protein NEGATIVE (NEG); Urine Specific Gravity >1.030 (1.005-1.030); Urine pH 6.5 (5.0-7.0)
--- NOTE | 2019-07-27 08:22 | RAD REPORT ---
EXAM DESCRIPTION: Segundo Single View07/26/2019 9:08 pm CLINICAL HISTORY: Fever COMPARISON: June 2019 FINDINGS: The lungs appear clear of acute infiltrate. The heart is normal size IMPRESSION: No acute abnormalities displayed
== END 2019-07-26 22:49 | disposition home or self-care (01) ==
LOC: ER 20:22
DX: M79.10 Myalgia, unspecified site (principal); I10 Essential (primary) hypertension; E11.9 Type 2 diabetes mellitus without complications; Z88.0 Allergy status to penicillin
CPT/HCPCS: 71045; 81003; 87804; 99283

== ENCOUNTER 2019-10-27 08:06 | Emergency (ER) | payer MEDICARE ==
--- OUTSIDE RECORDS SUMMARY | 2019-10-27 08:09 | XMS REPORT | Clinical Summary ---
:1955 Author Organization [facility] Address [address] [place] [address] Care Team Providers Name Role Phone Felipe Primary Care Provider Unavailable Allergies Active Allergy [...] (NORVASC) Take 5 mg by mouth. 0 9 Active 5 mg tablet betamethasone, betamethasone, 0 [...] code E11.9 clobetasol clobetasol 0.05 % 0 A ctive (TEMOVATE) 0.05 % topical ointment ointment diclofenac 2 g. 0 Active (VOLTAREN) 1 % gel hydrOXYzine (ATARAX) 0 10/14/2018 Active 50 MG tablet fluocinonide (LIDEX) fluocinonide 0.05 % 0 Active 0.05 % ointment topical ointment Active Problems No known active problems Encounters Date Type Specialty Care Team Description 12/27/2018 Clinical Support Orthopedic Surgery Bandar Garcia MD of left knee (P rimary Dx) 12/21/2018 Clinical Support Orthopedic Surgery Bandar Garcia MD of left knee (P rimary Dx) 12/13/2018 Clinical Support Orthopedic Surgery Bandar Garcia MD of left knee (P rimary Dx) 11/27/2018 Hospital Encounter Radiology Bandar Garcia MD 11/27/2018 Office Visit Orthopedic Surgery Bandar Garcia Primar y halle Garcias MD of left knee (P rimary Dx) after 10/26/2018 Family History Medical History Relation Name Comments [...] Health Maintenance Due Date Last Done Comments DIABETIC RETINAL EYE EXAM 1955 DIABETIC FOOT EXAM 1965 URINE MICROALBUMIN 1965 CERVICAL CANCER SCREENING 1976 BREAST CANCER SCREENING 2005 COLONOSCOPY SCREENING 2005 SHINGLES VACCINES (#1) 2005 INFLUENZA VACCINE 12/22/2019 Procedures Procedure Name Priority Date/Time Associated Diagnosis Comme nts MD ARTHROCENTESIS Routine 12/27/2018 1:30 Primary Result s for this ASPIR&/INJ MAJOR PM CDT osteoarthritis of proced ure are in JT/BURSA W/O US left knee the results section. MD ARTHROCENTESIS Routine 12/21/2018 11:10 Primary Result s for this ASPIR&/INJ MAJOR AM CDT osteoarthritis of proced ure are in JT/BURSA W/O US left knee the results section. MD ARTHROCENTESIS Routine 12/13/2018 1:30 Primary Result s for this ASPIR&/INJ MAJOR PM CDT osteoarthritis of proced ure are in JT/BURSA W/O US left knee the results section. MD ARTHROCENTESIS Routine 11/27/2018 9:20 Primary Result s for this ASPIR&/INJ MAJOR AM CDT osteoarthritis of proced ure are in JT/BURSA W/O US left knee the results section. after 10/26/2018 Results Large Joint Arthrocentesis: knee, L knee (12/27/2018 1:30 PM CDT) Narrative Performed At Bandar Garcia MD 12/27/2018 5:10 PM Large Joint Arthrocentesis: knee, L knee Consent given by: patient Timeout: Immediately prior to procedure a time out was called to verify the correct patient, procedure, equipmen t, clinical support associate and site/side marked as required Supporting Documentation Indications: pain Procedure Details Preparation: Patient was prepped and lindsey ped in the usual sterile fashion Ultrasound guided: no Location: knee - L knee Left side: Needle size: 22 G Approach: anterolateral (3ml of 1% lidoc malena) Left knee medications administered: 2 mL sodium hyalur gaurang (viscosup) 30 mg/2 mL Patient tolerance: patient tolerated the procedure wel l with no immediate complications Large Joint Arthrocentesis: knee, L knee (12/21/2018 11:10 AM CDT) Narrative Performed At Bandar Garcia MD 12/21/2018 12 :16 PM Large Joint Arthrocentesis: knee, L knee Consent given by: patient Timeout: Immediately prior to procedure a time out was called to verify the correct patient, procedure, equipmen t, clinical support associate and site/side marked as required Supporting Documentation Indications: pain Procedure Details Preparation: Patient was prepped and lindsey ped in the usual sterile fashion Ultrasound guided: no Location: knee - L knee Left side: Needle size: 22 G Approach: anterolateral (3ml of 1% lidoc malena) Left knee medications administered: 2 mL sodium hyalur gaurang (viscosup) 30 mg/2 mL Patient tolerance: patient tolerated the procedure wel l with no immediate complications Large Joint Arthrocentesis: knee, L knee (12/13/2018 1:30 PM CDT) Narrative Performed At Bandar Garcia MD 12/13/2018 5:00 PM Large Joint Arthrocentesis: knee, L knee Consent given by: patient Timeout: Immediately prior to procedure a time out was called to verify the correct patient, procedure, equipmen t, clinical support associate and site/side marked as required Supporting Documentation Indications: pain Procedure Details Preparation: Patient was prepped and lindsey ped in the usual sterile fashion Ultrasound guided: no Location: knee - L knee Left side: Needle size: 22 G Approach: anterolateral (3ml of 1% lidoc malena) Left knee medications administered: 2 mL sodium hyalur gaurang (viscosup) 30 mg/2 mL Patient tolerance: patient tolerated the procedure wel l with no immediate complications Left knee Steroid injection (11/27/2018 9:20 AM CDT) Narrative Performed At Bandar Garcia MD 11/27/2018 1:11 PM Left knee Steroid injection Consent given by: patient Timeout: Immediately prior to procedure a time out was called to verify the correct patient, procedure, equipmen t, clinical support associate and site/side marked as required Supporting Documentation Indications: pain Procedure Details Ultrasound guided: no Location: knee - L knee Left side: Needle size: 22 G Approach: anterolateral Left knee medications administered: 80 m g methylPREDNISolone acetate 40 mg/mL (4ml of 1% lidocaine, 4ml of 0.5% marcaine ) Patient tolerance: patient tolerated the procedure wel l with no immediate complications after 10/26/2018 Advance Directives For more information, please contact: [phone] Type Date Recorded Patient Knot Cutter Explanati on Advance Directives, Living Will and Medical Power of Inside Sales
--- OUTSIDE RECORDS SUMMARY | 2019-10-27 08:10 | XMS REPORT | Summary of Care ---
:1955 Author Organization [facility] Address [address] [place] [id number] Care Team Providers Name Role Phone Molly Wang MD Primary Care Provider MD Capo Unavailable Sitter Unavailable Davis Dukes MD Unavailable Keith Naqvi Unavailable Reason for Visit Reason Comments Assessment Encounter Details Date Type Department Care Team Description 08/15/2019 Telephone [facility] Doug Lauren MD Assessment - [address] [address] [place] [address] [place] [address] [phone] Allergies Active Allergy Reactions Severity Noted Date Comments Penicillin Rash, Shortness of Breath 02/02/2017 documented as of this encounter (statuses as of 08/15/2019) Medications Medication Sig Dispensed Refills Start Date End Date Status metformin ER 500 mg 24 0 06/20/2017 Active hr tablet Blood-Glucose Meter Check glucose 1 Kit 0 09/07/2017 Active (ONETOUCH ULTRA2) Kit once daily before breakfast; Diagnosis code E11.9 aug betamethasone Apply to 45 g 6 01/19/2018 A ctive dipropionate 0.05 % area(s) at ointmentIndications: bedtime. [...] without long-term E11.9 current use of insulin mirabegron (MYRBETRIQ) Take 1 tablet by 30 tablet 0 03/01/2019 Active 25 mg mouth daily. tabletIndications: Urinary frequency, Urge incontinence telmisartan-hydrochloro Take 1 tablet by 90 tablet 1 9 Active thiazide 40-12.5 mg per mouth daily. tabletIndications: Essential hypertension clobetasoL 0.05 % Apply to 60 g 1 06/07/2019 A ctive ointmentIndications: area(s) 2 (two) Lichen simplex times daily. chronicus OMEPRAZOLE 40 mg TAKE 1 CAPSULE 90 capsule 1 07/09/2019 Active capsuleIndications: BY MOUTH DAILY Gastroesophageal reflux disease, esophagitis presence not specified AMLODIPINE 5 mg TAKE 1 TABLET BY 90 tablet 1 07/09/2019 Active tabletIndications: MOUTH DAILY Essential hypertension documented as of this encounter (statuses as of 08/15/2019) Active Problems Problem Noted Date Endometrial polyp 02/28/2019 Overview: 05/04/19 - in office hysteroscopy reveal ed three benign endometrial polyps and an atrophic endometrial lining. Histology r evealed benign endometrial polyps and inactive endometrium c/w [...] 02/08/2017 Overview: Added automatically from request for laura whitehead [id number] Diabetes mellitus type 2, controlled, without complica tions 02/04/2017 Essential hypertension 02/04/2017 GERD (gastroesophageal reflux disease) 02/04/2017 documented as of this encounter (statuses as of 08/15/2019) Immunizations Name Administration Dates Next Due Pneumococcal [...] Team Description 10/02/2019 Office Visit Family Medicine Estrada Wang MD [address] [place] [address] [phone] Health Maintenance Due Date Last Done Comments DTaP,Tdap,and Td Vaccines 1966 (1 - Tdap) Zoster Recombinant Vaccine 2005 (SHINGRIX) (1 of 2) EYE EXAM 07/25/2018 07/25/2017 FOOT EXAM 05/23/2019 05/23/2018 HgA1C 08/15/2019 02/14/2019, 10/03/2018, 02/02/2017 LDL-C 10/04/2019 10/03/2018, 02/02/2017 URINE MICROALBUMIN 10/04/2019 10/03/2018, 02/02/2017 Breast Cancer Screening 12/20/2019 12/19/2018, 07/17/2012 (MAMMOGRAM) INFLUENZA VACCINE (#1) 2020 Postponed from 01/21/2019 (Refu sed) CREATININE (SERUM) 02/16/2020 02/15/2019, 02/14/2019, 11/16/2018, Additional [...] Plan / Subscriber ID Effective Dates Phone Addre ss Type Group [facility] [id number] 2019-Present PPO HEALTHCARE/[employer] documented as of this encounter
--- OUTSIDE RECORDS SUMMARY | 2019-10-27 08:10 | XMS REPORT | Continuity of Care Document ---
:1955 Author Organization [employer] Care Team Providers Name Role Phone [employer] Unavailable Un available Problems Problem Status Onset Classification Date Comments Sourc e Date Reported Endometrial polyp Active 02/29/20 09/21/2019 [facility] 19 Fatty liver Active 02/20/20 09/21/2019 [facility] alth 19 Abdominal pain Active 02/16/20 09/21/2019 [facility] Health 19 Pneumonia Active 02/15/20 09/21/2019 [facility] Heal th 19 LASHAY (acute kidney Active 10/30/19 09/21/2019 [facility] injury) 19 Obesity (BMI Active 10/30/19 09/21/2019 [facility] H ealth 30-39.9) 19 Pancytopenia Active 10/17/19 09/21/2019 [facility] H ealth 19 ASCUS of cervix Active 09/01/19 02/09/2019 [facility] B Health with negative high 19 risk HPV ASCUS of cervix Active 09/01/19 09/21/2019 [facility] B Health with negative high 19 risk HPV Other urinary Active 01/20/20 09/21/2019 [facility] Health incontinence 18 Lichen simplex Active 06/18/19 09/21/2019 [facility] chronicus 18 Vulvar lesion Active 06/15/19 09/21/2019 [facility] 18 Abnormal EKG Active 06/03/19 09/21/2019 [facility] ealth 18 Vulvar itching Active 05/13/20 09/21/2019 [facility] Health 17 Vulvar rash Active 05/13/20 09/21/2019 [facility] alth 17 Screening for Active 02/09/20 09/21/2019 [facility] colorectal cancer 17 Diabetes mellitus Active 02/05/20 09/21/2019 [facility] type 2, controlled, 17 without complications Essential Active 02/05/20 09/21/2019 [facility]al th hypertension 17 GERD Active 02/05/20 09/21/2019 [facility] Heal th (gastroesophageal 17 reflux disease) Bacterial URI Active 07/02/2019 [facility] Acute bacterial Active 07/02/2019 [facility] B [facility] bronchitis Controlled type 2 Active 08/21/2019 [facility] diabetes mellitus without complication, without long-term current use of insulin Gastroesophageal Active 09/11/[address] [facility] reflux disease, esophagitis presence not specified Upper abdominal Active 09/11/2019 [facility] B Health pain Chronic pain of Active 09/05/2019 [facility] left knee Limb Pain Active 08/03/2013 [facility] Medications Medication Details Route Status Patient Ordering Order Source Instructions Provider Date metformin ER Take 1 Oral Active [facility] Health 500 mg 24 hr tablet by 020 tablet mouth daily with breakfast. OMEPRAZOLE 40 TAKE 1 Oral Active [facility] Healt h mg capsule CAPSULE BY 020 MOUTH DAILY AMLODIPINE 5 mg TAKE 1 Oral Active [facility] Hea lth tablet TABLET BY 020 MOUTH DAILY clobetasoL 0.05 Apply to Topical Active [facility] ealth % ointment area(s) 2 020 (two) times daily. telmisartan-hyd Take 1 [facility] by 019 e 40-12.5 mg mouth per tablet daily. omeprazole 40 Take 1 Oral No [facility] Healt h mg capsule capsule by Longer 019 mouth Active daily. mirabegron Take 1 Oral Active [facility] (MYRBETRIQ) 25 tablet by 019 mg tablet mouth daily. AMLODIPINE 5 mg TAKE 1 Oral No [facility] Hea lth tablet TABLET BY Longer 019 MOUTH Active DAILY ONETOUCH ULTRA Check Active [facility] Heal th BLUE TEST STRIP glucose 019 strip once daily before breakfast; ICD-10 code E11.9 ONE TOUCH Check Active [facility] DELICA 33 gauge glucose 019 Misc once daily before breakfast; ICD-10 code E11.9 telmisartan-hyd Take 1 Oral Active [facility] Hea lth rochlorothiazid tablet by 019 e 40-12.5 mg mouth per tablet daily. amLODIPine 5 mg Take 1 Oral Active [facility] Hea lth tablet tablet by 019 mouth daily. hydrOXYzine 50 Take 1 Oral Active [facility] Heal th mg tablet tablet by 019 mouth 3 (three) times daily as needed for Itching. tacrolimus 0.1 Apply to Topical Active [facility] alth % ointment area(s) 2 019 (two) times daily. nystatin Apply to Topical Active [facility] 100,000 area(s) 2 018 unit/gram (two) times powder daily as needed for Itching. aug Apply to Topical Active [facility] betamethasone area(s) at 018 dipropionate bedtime. 0.05 % ointment acetaminophen-c Active [facility] Hea lth odeine 300-30 018 mg tablet [facility]Gl[facility] [place] glucose 018 ULTRA2) Kit once daily before breakfast; Diagnosis code E11.9 metformin ER No [facility] 500 mg 24 hr Longer 018 tablet Active omeprazole 40 Take 40 mg Oral Active [facility] alth mg capsule by mouth 017 daily. Meloxicam 7.5 ; Start Active [facility] Oral Tablet Date: 014 Physician s 08/03/2013 (Active) Allergies, Adverse Reactions, Alerts Substance Category Reaction Severity Reaction Status Date Comments S ource type Reported Penicillin Rash, , Propensity Active [facility] Shortness to adverse 7 Hea lt of Breath reactions Not Known [facility] Immunizations Immunization Date Given Site Status Last Updated Comments Katie rce Pneumococcal 05/23/2016 completed [facility] Polysaccharide, [facility] PPSV23 (PNEUMOVAX) Pneumococcal 05/23/2009 completed [facility] Polysaccharide, [facility] PPSV23 (PNEUMOVAX) Results No Data Provided for This Section Pathology Reports No Data Provided for This Section Diagnostic Reports No Data Provided for This Section Consultation Notes No Data Provided for This Section Discharge Summaries No Data Provided for This Section History and Physicals No Data Provided for This Section Vital Signs Vital Sign Value Date Comments Source Systolic (mm Hg) 122 07/02/2019 [facility] Diastolic (mm Hg) 75 07/02/2019 [facility] Healt h Heart Rate 98 07/02/2019 [facility] Temperature Oral (F) 36.56 Jennifer 07/02/2019 [facility] He alth Height 167.6 cm 07/02/2019 [facility] Weight 115.667 07/02/2019 [facility] Health Encounters Location Location Encounter Encounter Reason Attending ADM DC Stat us Source Details Type Number For Provider Date Date Visit AUDIT [id number] 08/03 /2013 Physician s [facility] Orders Only [id number] No Doctor 02/09 [facility] Un[facility] Telephone [id number] Nash 06/05 [facility] Health [facility] Office Visit [id number] [place] 07/02 07/02 [facility] Health [place] AYERS /2019 [facility] Refill [id number] [place] 07/07 [facility] Health [place] A[place] [facility] Orders Only [id number] No Doctor 07/09 [facility] Telephone [id number] [place] 08/14 [facility] [place] [facility] Refill [id number] [place] 08/19 [facility] Health [place] A[place] [facility] Telephone [id number] [place] 08/27 [facility] [place] [facility] Orders Only [id number] No Doctor 09/03 [facility] Un[facility] Telephone [id number] [place] 09/03 [facility] B Health [place] [facility] Telephone [id number] [place] 09/03 [facility] [place] [facility] Telemedicine [id number] [place] 09/10 09/10 [facility] Health Visit Felipe AYERS /2019 [facility] Procedures Procedure Code Date Perfomer Comments Source REFERRAL- [id number] 09/04/2019 Doctor Unassigned [facility] He alth REQUEST/RESPONSE EXTERNAL PROVIDER [id number] 07/09/2019 Doctor Unassigned [facility] Health RECORDS NOTICE OF BILLING [id number] 02/09/2019 Doctor Unassigned [facility] Health PRACTICES FOR MEDICARE PATIENTS Assessment and Plan No Data Provided for This Section Plan of Care Plan of Care Date Source COLONOSCOPY 03/03/2027 [facility] Health COLONOSCOPY 03/03/2027 [facility] Health PAP SMEAR 08/17/2021 [facility] PAP SMEAR 08/17/2021 [facility] CREATININE (SERUM) 02/16/2020 [facility] INFLUENZA VACCINE (#1) 2020 [facility] Breast Cancer Screening (MAMMOGRAM) 12/20/2019 [facility] CREATININE (SERUM) 11/17/2019 [facility] LDL-C 10/04/2019 [facility] LDL-C 10/04/2019 [facility] URINE MICROALBUMIN 10/04/2019 [facility] Upcoming EncountersDateTypeSpecialtyCare TeamDescription 05/2019 [facility] 10/02/2019 Telemedicine Visit Family Medicine Doug Wang MD[address] [place] [address] [place] [phone] (Fax) Health MaintenanceDue DateLast DoneComments DTaP,Tdap,and Td Vaccines (1 - Tdap) 1966 Zoster Recombinant Vaccine (SHINGRIX) (1 of 2) 2005 EYE EXAM 07/25/2018 07/25/2017 FOOT EXAM 05/23/2019 05/23/2018 HgA1C 08/15/2019 02/14/2019, 10/03/2018, 02/02/2017 LDL-C 10/04/2019 10/03/2018, 02/02/2017 URINE MICROALBUMIN 10/04/2019 10/03/2018, 02/02/2017 Breast Cancer Screening (MAMMOGRAM) 12/20/2019 12/19/2018, 07/17/2012 INFLUENZA VACCINE (#1) 2020 Postponed from 01/21/2019 (Refused) CREATININE (SERUM) 02/16/2020 02/15/2019, 02/14/2019, 11/16/2018, Additional history exist s PAP SMEAR 08/17/2021 08/17/2018, 08/17/2018, 05/18/2012 COLONOSCOPY 03/03/2027 03/03/2017 PNEUMOCOCCAL 0-64 YEARS COMBINED SERIES Completed 05/23/2016, 05/23/2009 HEPATITIS C (HCV) SCREEN Completed 11/16/2018 documented as of this encounter Upcoming EncountersDateTypeSpecialtyCare TeamDescription [facility] 10/02/2019 Telemedicine Visit Family Doug Godwin MD[address] [place] [address] [place], [place] [phone] (Fax) Health MaintenanceDue DateLast DoneComments DTaP,Tdap,and Td Vaccines (1 - Tdap) 1966 Zoster Recombinant Vaccine (SHINGRIX) (1 of 2) 2005 EYE EXAM 07/25/2018 07/25/2017 FOOT EXAM 05/23/2019 05/23/2018 HgA1C 08/15/2019 02/14/2019, 10/03/2018, 02/02/2017 LDL-C 10/04/2019 10/03/2018, 02/02/2017 URINE MICROALBUMIN 10/04/2019 10/03/2018, 02/02/2017 Breast Cancer Screening (MAMMOGRAM) 12/20/2019 12/19/2018, 07/17/2012 INFLUENZA VACCINE (#1) 2020 Postponed from 01/21/2019 (Refused) CREATININE (SERUM) 02/16/2020 02/15/2019, 02/14/2019, 11/16/2018, Additional history exist s PAP SMEAR 08/17/2021 08/17/2018, 08/17/2018, 05/18/2012 COLONOSCOPY 03/03/2027 03/03/2017 PNEUMOCOCCAL 0-64 YEARS COMBINED SERIES Completed 05/23/2016, 05/23/2009 HEPATITIS C (HCV) SCREEN Completed 11/16/2018 documented as of this encounter Upcoming EncountersDateTypeSpecialtyCare TeamDescription [facility] 10/02/2019 Telemedicine Visit Family Medicine Doug Wang MD[address] [place] [address] [place] [phone] (Fax) Health MaintenanceDue DateLast DoneComments DTaP,Tdap,and Td Vaccines (1 - Tdap) 1966 Zoster Recombinant Vaccine (SHINGRIX) (1 of 2) 2005 EYE EXAM 07/25/2018 07/25/2017 FOOT EXAM 05/23/2019 05/23/2018 HgA1C 08/15/2019 02/14/2019, 10/03/2018, 02/02/2017 LDL-C 10/04/2019 10/03/2018, 02/02/2017 URINE MICROALBUMIN 10/04/2019 10/03/2018, 02/02/2017 Breast Cancer Screening (MAMMOGRAM) 12/20/2019 12/19/2018, 07/17/2012 INFLUENZA VACCINE (#1) 2020 Postponed from 01/21/2019 (Refused) CREATININE (SERUM) 02/16/2020 02/15/2019, 02/14/2019, 11/16/2018, Additional history exist s PAP SMEAR 08/17/2021 08/17/2018, 08/17/2018, 05/18/2012 COLONOSCOPY 03/03/2027 03/03/2017 PNEUMOCOCCAL 0-64 YEARS COMBINED SERIES Completed 05/23/2016, 05/23/2009 HEPATITIS C (HCV) SCREEN Completed 11/16/2018 documented as of this encounter Upcoming EncountersDateTypeSpecialtyCare TeamDescription [facility] 10/02/2019 Telemedicine Visit Family Medicine Doug Wang MD[address] [place] [address] [place] [phone] (Fax) Health MaintenanceDue DateLast DoneComments DTaP,Tdap,and Td Vaccines (1 - Tdap) 1966 Zoster Recombinant Vaccine (SHINGRIX) (1 of 2) 2005 EYE EXAM 07/25/2018 07/25/2017 FOOT EXAM 05/23/2019 05/23/2018 HgA1C 08/15/2019 02/14/2019, 10/03/2018, 02/02/2017 LDL-C 10/04/2019 10/03/2018, 02/02/2017 URINE MICROALBUMIN 10/04/2019 10/03/2018, 02/02/2017 Breast Cancer Screening (MAMMOGRAM) 12/20/2019 12/19/2018, 07/17/2012 INFLUENZA VACCINE (#1) 2020 Postponed from 01/21/2019 (Refused) CREATININE (SERUM) 02/16/2020 02/15/2019, 02/14/2019, 11/16/2018, Additional history exist s PAP SMEAR 08/17/2021 08/17/2018, 08/17/2018, 05/18/2012 COLONOSCOPY 03/03/2027 03/03/2017 PNEUMOCOCCAL 0-64 YEARS COMBINED SERIES Completed 05/23/2016, 05/23/2009 HEPATITIS C (HCV) SCREEN Completed 11/16/2018 documented as of this encounter Upcoming EncountersDateTypeSpecialtyCare TeamDescription 12/2019 [facility] 10/02/2019 Telemedicine Visit Family Doug Godwin MD[address] [place], [place] [phone] (Fax) Health MaintenanceDue DateLast DoneComments DTaP,Tdap,and Td Vaccines (1 - Tdap) 1966 Zoster Recombinant Vaccine (SHINGRIX) (1 of 2) 2005 EYE EXAM 07/25/2018 07/25/2017 FOOT EXAM 05/23/2019 05/23/2018 HgA1C 08/15/2019 02/14/2019, 10/03/2018, 02/02/2017 LDL-C 10/04/2019 10/03/2018, 02/02/2017 URINE MICROALBUMIN 10/04/2019 10/03/2018, 02/02/2017 Breast Cancer Screening (MAMMOGRAM) 12/20/2019 12/19/2018, 07/17/2012 INFLUENZA VACCINE (#1) 2020 Postponed from 01/21/2019 (Refused) CREATININE (SERUM) 02/16/2020 02/15/2019, 02/14/2019, 11/16/2018, Additional history exist s PAP SMEAR 08/17/2021 08/17/2018, 08/17/2018, 05/18/2012 COLONOSCOPY 03/03/2027 03/03/2017 PNEUMOCOCCAL 0-64 YEARS COMBINED SERIES Completed 05/23/2016, 05/23/2009 HEPATITIS C (HCV) SCREEN Completed 11/16/2018 documented as of this encounter Upcoming EncountersDateTypeSpecialtyCare TeamDescription [facility] 10/02/2019 Office Visit Family Doug Godwin MD[address] [place], [place] [phone] (Fax) Health MaintenanceDue DateLast DoneComments DTaP,Tdap,and Td Vaccines (1 - Tdap) 1966 Zoster Recombinant Vaccine (SHINGRIX) (1 of 2) 2005 EYE EXAM 07/25/2018 07/25/2017 FOOT EXAM 05/23/2019 05/23/2018 HgA1C 08/15/2019 02/14/2019, 10/03/2018, 02/02/2017 LDL-C 10/04/2019 10/03/2018, 02/02/2017 URINE MICROALBUMIN 10/04/2019 10/03/2018, 02/02/2017 Breast Cancer Screening (MAMMOGRAM) 12/20/2019 12/19/2018, 07/17/2012 INFLUENZA VACCINE (#1) 2020 Postponed from 01/21/2019 (Refused) CREATININE (SERUM) 02/16/2020 02/15/2019, 02/14/2019, 11/16/2018, Additional history exist s PAP SMEAR 08/17/2021 08/17/2018, 08/17/2018, 05/18/2012 COLONOSCOPY 03/03/2027 03/03/2017 PNEUMOCOCCAL 0-64 YEARS COMBINED SERIES Completed 05/23/2016, 05/23/2009 HEPATITIS C (HCV) SCREEN Completed 11/16/2018 documented as of this encounter Upcoming EncountersDateTypeSpecialtyCare TeamDescription [facility] 10/02/2019 Office Visit Family Medicine Doug Wang MD[address] [place] [address] [place] [phone] (Fax) Health MaintenanceDue DateLast DoneComments DTaP,Tdap,and Td Vaccines (1 - Tdap) 1966 Zoster Recombinant Vaccine (SHINGRIX) (1 of 2) 2005 EYE EXAM 07/25/2018 07/25/2017 FOOT EXAM 05/23/2019 05/23/2018 HgA1C 08/15/2019 02/14/2019, 10/03/2018, 02/02/2017 LDL-C 10/04/2019 10/03/2018, 02/02/2017 URINE MICROALBUMIN 10/04/2019 10/03/2018, 02/02/2017 Breast Cancer Screening (MAMMOGRAM) 12/20/2019 12/19/2018, 07/17/2012 INFLUENZA VACCINE (#1) 2020 Postponed from 01/21/2019 (Refused) CREATININE (SERUM) 02/16/2020 02/15/2019, 02/14/2019, 11/16/2018, Additional history exist s PAP SMEAR 08/17/2021 08/17/2018, 08/17/2018, 05/18/2012 COLONOSCOPY 03/03/2027 03/03/2017 PNEUMOCOCCAL 0-64 YEARS COMBINED SERIES Completed 05/23/2016, 05/23/2009 HEPATITIS C (HCV) SCREEN Completed 11/16/2018 documented as of this encounter HgA1C 08/15/2019 [facility] EYE EXAM 08/10/2019 [facility] Upcoming EncountersDateTypeSpecialtyCare TeamDescription [facility] 10/02/2019 Office Visit Family Doug Godwin MD[address] [place] [address] [place] [phone] (Fax) Health MaintenanceDue DateLast DoneComments DTaP,Tdap,and Td Vaccines (1 - Tdap) 1966 Zoster Recombinant Vaccine (SHINGRIX) (1 of 2) 2005 FOOT EXAM 05/23/2019 05/23/2018 EYE EXAM 08/10/2019 07/25/2017 Postponed from 07/25/2018 (Patient Does Not Have Time) HgA1C 08/15/2019 02/14/2019, 10/03/2018, 02/02/2017 LDL-C 10/04/2019 10/03/2018, 02/02/2017 URINE MICROALBUMIN 10/04/2019 10/03/2018, 02/02/2017 Breast Cancer Screening (MAMMOGRAM) 12/20/2019 12/19/2018, 07/17/2012 INFLUENZA VACCINE (#1) 2020 Postponed from 01/21/2019 (Refused) CREATININE (SERUM) 02/16/2020 02/15/2019, 02/14/2019, 11/16/2018, Additional history exist s PAP SMEAR 08/17/2021 08/17/2018, 08/17/2018, 05/18/2012 COLONOSCOPY 03/03/2027 03/03/2017 PNEUMOCOCCAL 0-64 YEARS COMBINED SERIES Completed 05/23/2016, 05/23/2009 HEPATITIS C (HCV) SCREEN Completed 11/16/2018 documented as of this encounter Upcoming EncountersDateTypeSpecialtyCare TeamDescription [facility] 10/02/2019 Office Visit Family Doug Godwin MD[address] [place] [phone] (Fax) Health MaintenanceDue DateLast DoneComments DTaP,Tdap,and Td Vaccines (1 - Tdap) 1966 Zoster Recombinant Vaccine (SHINGRIX) (1 of 2) 2005 FOOT EXAM 05/23/2019 05/23/2018 EYE EXAM 08/10/2019 07/25/2017 Postponed from 07/25/2018 (Patient Does Not Have Time) HgA1C 08/15/2019 02/14/2019, 10/03/2018, 02/02/2017 LDL-C 10/04/2019 10/03/2018, 02/02/2017 URINE MICROALBUMIN 10/04/2019 10/03/2018, 02/02/2017 Breast Cancer Screening (MAMMOGRAM) 12/20/2019 12/19/2018, 07/17/2012 INFLUENZA VACCINE (#1) 2020 Postponed from 01/21/2019 (Refused) CREATININE (SERUM) 02/16/2020 02/15/2019, 02/14/2019, 11/16/2018, Additional history exist s PAP SMEAR 08/17/2021 08/17/2018, 08/17/2018, 05/18/2012 COLONOSCOPY 03/03/2027 03/03/2017 PNEUMOCOCCAL 0-64 YEARS COMBINED SERIES Completed 05/23/2016, 05/23/2009 HEPATITIS C (HCV) SCREEN Completed 11/16/2018 documented as of this encounter Upcoming EncountersDateTypeSpecialtyCare TeamDescription 02/2020 [facility] 10/02/2019 Office Visit Family Doug Godwin MD[address] [place] [phone] (Fax) Health MaintenanceDue DateLast DoneComments DTaP,Tdap,and Td Vaccines (1 - Tdap) 1966 Zoster Recombinant Vaccine (SHINGRIX) (1 of 2) 2005 FOOT EXAM 05/23/2019 05/23/2018 EYE EXAM 08/10/2019 07/25/2017 Postponed from 07/25/2018 (Patient Does Not Have Time) HgA1C 08/15/2019 02/14/2019, 10/03/2018, 02/02/2017 LDL-C 10/04/2019 10/03/2018, 02/02/2017 URINE MICROALBUMIN 10/04/2019 10/03/2018, 02/02/2017 Breast Cancer Screening (MAMMOGRAM) 12/20/2019 12/19/2018, 07/17/2012 INFLUENZA VACCINE (#1) 2020 Postponed from 01/21/2019 (Refused) CREATININE (SERUM) 02/16/2020 02/15/2019, 02/14/2019, 11/16/2018, Additional history exist s PAP SMEAR 08/17/2021 08/17/2018, 08/17/2018, 05/18/2012 COLONOSCOPY 03/03/2027 03/03/2017 PNEUMOCOCCAL 0-64 YEARS COMBINED SERIES Completed 05/23/2016, 05/23/2009 HEPATITIS C (HCV) SCREEN Completed 11/16/2018 documented as of this encounter Upcoming EncountersDateTypeSpecialtyCare TeamDescription [facility] 06/12/2019 Office Visit Family Medicine Doug Wang MD[address] [place] [address] [place] [phone] (Fax) Health MaintenanceDue DateLast DoneComments DTaP,Tdap,and Td Vaccines (1 - Tdap) 1966 Zoster Recombinant Vaccine (SHINGRIX) (1 of 2) 2005 FOOT EXAM 05/23/2019 05/23/2018 EYE EXAM 08/10/2019 07/25/2017 Postponed from 07/25/2018 (Patient Does Not Have Time) HgA1C 08/15/2019 02/14/2019, 10/03/2018, 02/02/2017 LDL-C 10/04/2019 10/03/2018, 02/02/2017 URINE MICROALBUMIN 10/04/2019 10/03/2018, 02/02/2017 Breast Cancer Screening (MAMMOGRAM) 12/20/2019 12/19/2018, 07/17/2012 INFLUENZA VACCINE (#1) 2020 Postponed from 01/21/2019 (Refused) CREATININE (SERUM) 02/16/2020 02/15/2019, 02/14/2019, 11/16/2018, Additional history exist s PAP SMEAR 08/17/2021 08/17/2018, 08/17/2018, 05/18/2012 COLONOSCOPY 03/03/2027 03/03/2017 PNEUMOCOCCAL 0-64 YEARS COMBINED SERIES Completed 05/23/2016, 05/23/2009 HEPATITIS C (HCV) SCREEN Completed 11/16/2018 documented as of this encounter FOOT EXAM 05/23/2019 [facility] Health HgA1C 04/05/2019 [facility] Upcoming EncountersDateTypeSpecialtyCare TeamDescription [facility] 02/09/2019 Office Visit Family Medicine Doug Wang MD[address] [place] [address] [place] [phone] (Fax) Arrived Health MaintenanceDue DateLast DoneComments PNEUMOCOCCAL 0-64 YEARS COMBINED SERIES (1 of 1 - PPSV23) 1961 FOOT EXAM 1973 DTaP,Tdap,and Td Vaccines (1 - Tdap) 1974 Zoster Recombinant Vaccine (SHINGRIX) (1 of 2) 2005 MAMMOGRAM 07/17/2013 07/17/2012 EYE EXAM 07/25/2018 07/25/2017 INFLUENZA VACCINE (#1) 2019 HgA1C 04/05/2019 10/03/2018, 02/02/2017 LDL-C 10/04/2019 10/03/2018, 02/02/2017 URINE MICROALBUMIN 10/04/2019 10/03/2018, 02/02/2017 CREATININE (SERUM) 11/17/2019 11/16/2018, 10/30/2018, 10/29/2018, Additional history exist s PAP SMEAR 08/17/2021 08/17/2018, 08/17/2018, 05/18/2012 COLONOSCOPY 03/03/2027 03/03/2017 HEPATITIS C (HCV) SCREEN Completed 11/16/2018 documented as of this encounter INFLUENZA VACCINE (#1) 2019 [facility] Health EYE EXAM 07/25/2018 [facility] EYE EXAM 07/25/2018 [facility] MAMMOGRAM 07/17/2013 [facility] Zoster Recombinant Vaccine (SHINGRIX) (1 of 2) 2005 [facility] DTaP,Tdap,and Td Vaccines (1 - Tdap) 1974 [facility] B Health FOOT EXAM 1973 [facility] Health DTaP,Tdap,and Td Vaccines (1 - Tdap) 1966 [facility] B Health PNEUMOCOCCAL 0-64 YEARS COMBINED SERIES (1 of 1961 [facility] 1 - PPSV23) Social History Social History Date Source Tobacco UseTypesPacks/DayYears UsedDate 07/02/2019 [facility] Never Smoker Smokeless Tobacco: Never Used Alcohol UseDrinks/Weekoz/WeekComments No Sex Assigned at BirthDate Recorded Not on file Job Start DateOccupationIndustry Not on file Not on file Not on file Travel HistoryTravel StartTravel End No recent travel history available. documented as of this encounter Family History No Data Provided for This Section Advance Directives Order Name Results Value Date Source Advance Directives Advance Directives No Advance 08/03/2013 [facility] Directives available. Functional Status No Data Provided for This Section
--- OUTSIDE RECORDS SUMMARY | 2019-10-27 08:11 | XMS REPORT | Summary of Care ---
:1955 Author Organization [facility] - [facility] Address [address] [place] [address] Care Team Providers Name Role Phone Molly Wang MD Primary Care Provider MD Capo Unavailable Sitter Unavailable Davis Dukes MD Unavailable Keith Naqvi Unavailable Reason for Visit Reason Comments Refill Request Encounter Details Date Type Department Care Team Description 08/20/[address] [facility] Family Medicine Doug Lauren MD Refill Request - [address] [address] [place] [address] [phone] Allergies Active Allergy Reactions Severity Noted Date Comments Penicillin Rash, Shortness of Breath 02/02/2017 documented as of this encounter (statuses as of 08/21/2019) Medications Medication Sig Dispensed Refills Start End Date Status Date Blood-Glucose Meter Check glucose 1 Kit 0 Active (ONETOUCH ULTRA2) once daily 8 Kit before breakfast; Diagnosis code E11.9 aug betamethasone Apply to 45 g 6 Ac tive dipropionate 0.05 % area(s) at 8 ointmentIndications: bedtime. Lichen sclerosus ONETOUCH ULTRA BLUE Check glucose 100 Strip 3 Active TEST STRIP once daily 9 stripIndications: before Controlled type 2 breakfast; diabetes mellitus ICD-10 code without E11.9 complication, without long-term current use of insulin ONE TOUCH DELICA 33 Check glucose 100 Each 3 Active gauge once daily 9 MiscIndications: before Controlled type 2 breakfast; diabetes mellitus ICD-10 code without E11.9 complication, without long-term current use of insulin mirabegron Take 1 tablet 30 tablet 0 Activ e (MYRBETRIQ) 25 mg by mouth 9 tabletIndications: daily. Urinary frequency, Urge incontinence telmisartan-hydrochl Take 1 tablet 90 tablet 1 Active orothiazide 40-12.5 by mouth 9 mg per daily. tabletIndications: Essential hypertension clobetasoL 0.05 % Apply to 60 g 1 Ac tive ointmentIndications: area(s) 2 0 Lichen simplex (two) times chronicus daily. OMEPRAZOLE 40 mg TAKE 1 90 capsule 1 Ac tive capsuleIndications: CAPSULE BY 0 Gastroesophageal MOUTH DAILY reflux disease, esophagitis presence not specified AMLODIPINE 5 mg TAKE 1 TABLET 90 tablet 1 Active tabletIndications: BY MOUTH 0 Essential DAILY hypertension metformin ER 500 mg Take 1 tablet 90 tablet 2 Active 24 hr by mouth 0 tabletIndications: daily with Controlled type 2 breakfast. diabetes mellitus without complication, without long-term current use of insulin metformin ER 500 mg 0 08/20/19 Discontinued 24 hr tablet 8 20 (Yoav r) documented as of this encounter (statuses as of 08/21/2019) Active Problems Problem Noted Date Endometrial polyp [...] Added automatically from request for laura whitehead [id number] Diabetes mellitus type 2, controlled, without complica tions 02/04/2017 Essential hypertension 02/04/2017 GERD (gastroesophageal reflux disease) 02/04/2017 documented as of this encounter (statuses as of 08/21/2019) Immunizations Name Administration Dates Next Due Pneumococcal [...] Office Visit Family Medicine Estrada Wang MD [address] [place] [address] [phone] Health Maintenance Due Date Last Done [...] filedocumented in this encounter Visit Diagnoses Diagnosis Controlled type 2 diabetes mellitus with out complication, without long-term current use of insulin - Primary documented in this encounter Insurance Payer Benefit Plan / Subscriber ID Effective Dates Phone Addre ss Type Group [facility] [id number] 2019-Present PPO HEALTHCARE/AARP documented as of this encounter
--- OUTSIDE RECORDS SUMMARY | 2019-10-27 08:11 | XMS REPORT | Summary of Care ---
:1955 Author Organization [facility] Address [address] [place] [address] Care Team Providers Name Role Phone Molly Wang MD Primary Care Provider MD Capo Unavailable Sitter Unavailable Davis Dukes MD Unavailable Keith Naqvi Unavailable Reason for Visit Reason Comments Assessment Encounter Details Date Type Department Care Team Description 08/28/2019 Telephone [facility] Pediatric and Doug Schmidt MD Assessment Adult Primary Care- [address] [place] [address] [place] [address] , [address] [place] [address] Allergies Active Allergy Reactions Severity Noted Date Comments Penicillin Rash, Shortness of Breath 02/02/2017 documented as of this encounter (statuses as of 08/29/2019) Medications Medication Sig Dispensed Refills Start Date End Date Status Blood-Glucose Meter Check glucose 1 Kit 0 [...] 07/09/2019 Active tabletIndications: MOUTH DAILY Essential hypertension metformin ER 500 mg 24 Take 1 tablet by 90 tablet 2 08/21/2019 Active hr tabletIndications: mouth daily with Controlled type 2 breakfast. diabetes mellitus without complication, without long-term current use of insulin documented as of this encounter (statuses as of 08/29/2019) Active Problems Problem Noted Date Endometrial polyp [...] Added automatically from request for laura whitehead [id number] Diabetes mellitus type 2, controlled, without complica tions 02/04/2017 Essential hypertension 02/04/2017 GERD (gastroesophageal reflux disease) 02/04/2017 documented as of this encounter (statuses as of 08/29/2019) Immunizations Name Administration Dates Next Due Pneumococcal [...] Date Type Specialty Care Team Description 10/02/2019 Telemedicine Visit Family Medicine Rico Wang MD [address] [place] [address] [phone] Health Maintenance Due Date Last Done [...] Effective Dates Phone Addre ss Type Group [facility] [id number] 2019-Present PPO HEALTHCARE/AARP documented as of this encounter
--- OUTSIDE RECORDS SUMMARY | 2019-10-27 08:12 | XMS REPORT | Summary of Care ---
:1955 Author Organization [facility] - [facility] Address [address] [place] [address] Care Team Providers Name Role Phone Molly Wang MD Primary Care Provider MD Capo Unavailable Sitter Unavailable Davis Dukes MD Unavailable Keith Naqvi Unavailable Reason for Referral (Routine) Status Reason Specialty Diagnoses / Referred By Referred To Procedures Contact Contact Closed Patient is Pain Medicine Diagnoses Chronic pain of left knee Felipe, Unknown, Established with a Procedures CONSULT/REFERRAL PAIN CLINIC Doug Barnes MD Attending Specific Provider [address] [place] [address] [place] [address] Reason for Visit Reason Comments Referral/consult Encounter Details Date Type Department Care Team Description 09/04/2019 Telephone [facility] Family Doug Wang R eferral/consult Medicine - Leander AYERS [address] [place] [address] [place] [address] [place] [address] [phone] Allergies Active Allergy Reactions Severity Noted Date Comments Penicillin Rash, Shortness of Breath 02/02/2017 documented as of this encounter (statuses as of 09/05/2019) Medications Medication Sig Dispensed Refills Start Date [...] as of this encounter (statuses as of 09/05/2019) Active Problems Problem Noted Date Endometrial polyp [...] Added automatically from request for laura whitehead [id number] Diabetes mellitus type 2, controlled, without complica tions 02/04/2017 Essential hypertension 02/04/2017 GERD (gastroesophageal reflux disease) 02/04/2017 documented as of this encounter (statuses as of 09/05/2019) Immunizations Name Administration Dates Next Due Pneumococcal [...] Visit Family Medicine Rico Wang MD [address] [place] [address] [phone] Health Maintenance Due Date Last Done [...] filedocumented in this encounter Visit Diagnoses Diagnosis Chronic pain of left knee - Primary Pain in joint, lower leg documented in this encounter Insurance Payer Benefit Plan / Subscriber ID Effective Dates Phone Addre ss Type Group [facility] [id number] 2019-Present PPO HEALTHCARE/AARP documented as of this encounter
--- OUTSIDE RECORDS SUMMARY | 2019-10-27 08:12 | XMS REPORT | Summary of Care ---
:1955 Author Organization [facility] Address [address] [place] [address] Care Team Providers Name Role Phone Molly Wang MD Primary Care Provider MD Capo Unavailable Sitter Unavailable Davis Dukes MD Unavailable Keith Naqvi Unavailable Reason for Visit Reason Comments Assessment Encounter Details Date Type Department Care Team Description 09/04/2019 Telephone [facility] Pediatric and Doug Schmidt MD Assessment Adult Primary Care- [address] [place] [address] [place] [address] , [address] [place] [address] Allergies Active Allergy Reactions Severity Noted [...] Added automatically from request for laura whitehead [id number] Diabetes mellitus type 2, controlled, without complica [...] Telemedicine Visit Family Medicine Rico Wang MD [address] [place] [phone] Health Maintenance Due Date Last Done [...] Effective Dates Phone Addre ss Type Group [facility] [id number] 2019-Present PPO HEALTHCARE/AARP documented as of this encounter
--- OUTSIDE RECORDS SUMMARY | 2019-10-27 08:12 | XMS REPORT | Summary of Care ---
:1955 Author Organization [facility] Address [address] [place] [address] Care Team Providers Name Role Phone Molly Wang MD Primary Care Provider MD Capo Unavailable Sitter Unavailable Davis Dukes MD Unavailable Keith Naqvi Unavailable Reason for Referral (Routine) Status Reason Specialty Diagnoses / Referred By Referred To Procedures Contact Contact Pending Patient Diagnoses Gastroesophageal reflux disease, esophagitis presence not specified Upper abdominal pain Raheel Wang, Review Requested Procedures CONSULT/REFERRAL GASTROENTEROLOGY Tish Peñaloza MD Specific [address] [facility] Provider [address] [phone] Phone: Fax: Reason for Visit Reason Comments GERD Encounter Details Date Type Department Care Team Description 09/11/2019 Telemedicine Visit [facility] Felipe Gastroeso phageal reflux disease, esophagitis presence not specified (Primary Dx); Pediatric and Doug Barnes MD Upper abdominal pain Adult Primary [address] [facility] [address] [place], [place] , [address] [address] [place], [place] [phone] Allergies Active Allergy Reactions Severity Noted Date Comments Penicillin Rash, Shortness of Breath 02/02/2017 documented as of this encounter (statuses as of 09/11/2019) Medications Medication Sig Dispensed Refills Start Date [...] as of this encounter (statuses as of 09/11/2019) Active Problems Problem Noted Date Endometrial polyp 02/28/2019 Overview: 12/13/19 - in office hysteroscopy reveal ed three [...] Added automatically from request for laura whitehead [id number] Diabetes mellitus type 2, controlled, without complica tions 02/04/2017 Essential hypertension 02/04/2017 GERD (gastroesophageal reflux disease) 02/04/2017 documented as of this encounter (statuses as of 09/11/2019) Immunizations Name Administration Dates Next Due Pneumococcal [...] Signs Not on filedocumented in this encounter Patient Instructions Patient InstructionsDoug Wang MD - 09/11/2019 3:00 PM CDT Patient Education Tips to Control Acid Reflux To control acid reflux, youll need to make some basic diet and lifestyle changes. The simple steps outlined below may be all youll need to ease discomfort. Watch what you eat Don't have fatty foods or spicy foods. Eat fewer acidic foods, such as citrus and tomato-based foods. These can increase symptoms. Limit drinking alcohol, caffeine, and fizzy beverages. All increase acid reflux. Try limiting chocolate, peppermint, and spearmint.These can make acid reflux worse in some people. Watch when you eat Don't lie down [id number] after eating. Don't snack before going to bed. Raise your head Raising your head and upper body by 4 to 6 incheshelps limit reflux when youre lying down. Put blocks under the head of your bed frame or a wedge under your mattress to raise it. Other changes Lose weight, if you need to Dont exercise near bedtime Don't wear tight-fitting clothes Limit aspirin and ibuprofen Stop smoking [employer] last reviewed this educational content on 10/21/201819996951-3648 [employer]. [address] [place] [address]. All rights reserved. This information is not intended as a substitute for professional medical care. Always follow your healthcare professional's instructions. documented in this encounter Progress Notes Doug Wang MD - 09/11/2019 3:00 PM CDT TELEHEALTH NOTE Verbal consent obtained from Patient: Nanci Barros due to the COVID-19 pandemic for telehealth services provided below. Communication with patient was conducted via Telephone due to patient unable to obtain video call option. Location of Patient: Home Location of Provider: Office Date of Service: 09/11/2019 CC: Chief Complaint Patient presents with GERD HPI Nanci Barros is a 64 year old female who participated in a Telehealth visit today for worsening GERD. She requests referral to GI specialist Dr. Pickering. GERD She complains of abdominal pain, belching and heartburn. This is a chronic problem. Episode onset: several years ago. The problem occurs constantly. The problem has been gradually worsening. The heartburn duration is less than a minute. The heartburn is of moderate intensity. The symptoms are aggravated by certain foods and stress. Pertinent negatives include no fatigue, melena, muscle weakness, orthopnea or weight loss. Risk factors include obesity. She has tried a PPI (omeprazole) for the symptoms. The treatment provided no relief (she says lately the omeprazole has not been effective for her). Her last EGD "was many years ago". Allergies Allergen Reactions Penicillin Rash and Shortness of Breath Current Outpatient Medications on File Prior to Visit Medication Sig Dispense Refill metformin ER 500 mg 24 hr tablet Take 1 tablet by mouth daily with breakfast. 90 tablet 2 AMLODIPINE 5 mg tablet TAKE 1 TABLET BY MOUTH DAILY 90 tablet 1 OMEPRAZOLE 40 mg capsule TAKE 1 CAPSULE BY MOUTH DAILY 90 capsule 1 clobetasoL 0.05 % ointment Apply to area(s) 2 (two) times daily. 60 g 1 telmisartan-hydrochlorothiazide 40-12.5 mg per tablet Take 1 tablet by mouth daily. 90 tablet 1 mirabegron (MYRBETRIQ) 25 mg tablet Take 1 tablet by mouth daily. 30 tablet 0 ONE TOUCH DELICA 33 gauge Misc Check glucose once daily before breakfast; ICD-10 code E11.9 100 Each 3 ONETOUCH ULTRA BLUE TEST STRIP strip Check glucose once daily before breakfast; ICD-10 code E11.9 100 Strip 3 dec betamethasone dipropionate 0.05 % ointment Apply to area(s) at bedtime. 45 g 6 Blood-Glucose Meter (Med fusionTOUCH ULTRA2) Kit Check glucose once daily before breakfast; Diagnosis code E11.9 1 Kit 0 No current facility-administered medications on file prior to visit. Past Medical History: Diagnosis Date Abnormal EKG 06/03/2017 LASHAY (acute kidney injury) 10/29/2018 ASCUS of cervix with negative high risk HPV 08/31/2018 Diabetes mellitus Esophageal reflux Essential hypertension 02/04/2017 Fatty liver 02/19/2019 Fatty liver 02/19/2019 History of diverticulitis Other urinary incontinence 01/19/2018 Pancytopenia 10/16/2018 Pancytopenia 10/16/2018 Past Surgical History: Procedure Laterality Date CHOLECYSTECTOMY COLONOSCOPY N/A 03/03/2017 Surgeon: Humaira Monge MD; Location: [facility] LEG/ANKLE SURGERY PROC UNLISTED SHOULDER ARTHROSCOPY Right SURGICAL HISTORY OTHER (SHX) Right leg surgery Family History Problem Relation Age of Onset Hypertension Mother Hypertension Father Cancer Father Lung Diabetes Sister Diabetes Brother Asthma Brother Cancer Maternal Aunt Stomach Arthritis NoFHx defects NoFHx Breast Cancer NoFHx Colon Cancer NoFHx Ovarian Cancer NoFHx Uterine Cancer NoFHx Depression NoFHx Genetic NoFHx Heart NoFHx High cholesterol NoFHx Mental retardation NoFHx Neurological NoFHx Osteoporosis NoFHx Psychiatry NoFHx Social History Socioeconomic History Marital status: Spouse [...] file Gets together: Not on file Attends shinto service: Not on file Active member of [...] History Narrative No domestic abuse or violence. Review of Systems Constitutional: Negative. Negative for fatigue and weight loss. HENT: Negative. Eyes: Negative. Respiratory: Negative. Cardiovascular: Negative. Gastrointestinal: Positive for abdominal pain and heartburn. Negative for melena. Genitourinary: Negative. Musculoskeletal: Negative. Negative for muscle weakness. Skin: Negative. Neurological: Negative. Psychiatric/Behavioral: Negative. Endocrine: Endocrine negativeNegative for weight loss. Vital signs Level of pain 0. Physical Exam Constitutional: She is oriented to person, place, and time. No audible distress Pulmonary/Chest: No audible adventitious breath sounds or respiratory distress Neurological: She is alert and oriented to person, place, and time. Answers questions appropriately Psychiatric: She has a normal mood and affect. Her speech is normal. Judgment and thought content normal. Cognition and memory are normal. LABS: CBC CMP WBC (10*3/L) Date Value 02/15/2019 6.11 NA (mmol/L) Date Value 02/15/2019 142 RBC (10*6/L) Date Value 02/15/2019 3.99 K (mmol/L) Date Value 02/15/2019 4.4 PLT (10*3/L) Date Value 02/15/2019 137 (L) CALCIUM (mg/dL) Date Value 02/15/2019 9.1 HGB (g/dL) Date Value 02/15/2019 11.3 (L) CL (mmol/L) Date Value 02/15/2019 110 (H) HCT (%) Date Value 02/15/2019 36.6 BUN (mg/dL) Date Value 02/15/2019 19 LIPID PANEL CREATININE (mg/dL) Date Value 02/15/2019 1.25 (H) CHOL (mg/dL) Date Value 10/03/2018 166 GLUCOSE (mg/dL) Date Value 02/15/2019 96 LDL CHOL (mg/dL) Date Value 10/03/2018 88 CO2 TOTAL (mmol/L) Date Value 02/15/2019 25 HDL (mg/dL) Date Value 10/03/2018 54 ALBUMIN Date Value Ref Range Status 02/15/2019 3.9 3.5 - 5.0 g/dL Final TRIG (mg/dL) Date Value 10/03/2018 118 T PROTEIN Date Value Ref Range Status 02/15/2019 6.9 6.3 - 8.2 g/dL Final TSH TOTAL BILI Date Value Ref Range Status 02/15/2019 0.5 0.1 - 1.1 mg/dL Final TSH (mIU/L) Date Value 10/03/2018 1.38 No components found for: BILIUNCOM No results found for: BILICONJ ALT(SGPT) Date Value Ref Range Status 02/15/2019 32 9 - 51 U/L Final AST(SGOT) Date Value Ref Range Status 02/15/2019 39 13 - 40 U/L Final ALK PHOS Date Value Ref Range Status 02/15/2019 78 34 - 122 U/L Final ASSESSMENT/PLAN Diagnoses and all orders for this visit: ICD-10-CM ICD-9-CM 1. Gastroesophageal reflux disease, esophagitis presence not specified K21.9 530.81 2. Upper abdominal pain R10.10 789.09 Given she is having GERD symptoms despite PPI therapy, EGD is indicated. Referral to GI for furtherevaluation. The pathophysiology of reflux was discussed. Anti-reflux measures such as raising the head of the bed, avoiding tight clothing or belts, avoiding eating late at night and not lying down sh ortly after mealtime and achieving weight loss were discussed. The patient was counseled to avoid ASA, NSAID's, caffeine, peppermints, alcohol and tobacco. Orders: - CONSULT/REFERRAL GASTROENTEROLOGY Plan of care, desired health behaviors, goals, Ddx, and any prescribed medications were discussed with the patient. Education resources and self- management tools were provided in the After Visit Summary (AVS) which is accessible through [employer]. A total of 15 minutes was spent on the Telephone due to patient unable to obtain video call option. Patient/guardian/family verbalized understanding and agrees to the plan of care. Barriers to care: None. Ability to manage care: Good. Advanced care planning (living will) information was not given/offered to the patient to review for discussion at a [facility] visit. If applicable, the [employer] database was accessed to review any controlled substance prescription claims data. If the patient is taking prescribed medications, the [employer] prescription claims data in [employer] was reviewed to assess patient compliance with the medication treatment plan. COVID-19 precautions given including frequent handwashing, social distancing, cleaning and disinfecting, indications for testing, etc. Follow-up: Return if symptoms worsen or fail to improve. Return for routine care as scheduled or previously advised. Scribe Attestation Isabel Keller , am scribing for, and in the presence of, Doug Wang MD who performed the services described here-in. Isabel Elizondo, September 11, 2019, 2:39 PM Physician Attestation I, Doug Wang MD, personally performed the services described in this documentation , as scribed by, Isabel Elizondo in my presence and it is both accurate and complete. Doug Wang MD September 11, 2019, 2:39 PM documented in this encounter Plan of Treatment Date Type Specialty Care Team Description 10/02/2019 Telemedicine Visit Family Medicine Rico Wang MD [address] [place] [address] [phone] Health Maintenance Due Date Last Done [...] encounter Visit Diagnoses Diagnosis Gastroesophageal reflux disease, esophag itis presence not specified - Primary Upper abdominal pain Abdominal pain, other specified site documented in this encounter Insurance Payer Benefit Plan / Subscriber ID Effective Dates Phone Addre ss Type Group [facility] [id number] 2019-Present [facility] Guarant[facility] Name Account Type Relation to Date of Phone Billing Patient Address Nanci Barros Personal/Family Self 1955 [address] [place] (Home) [place] [phone] (Work) documented as of this encounter
--- OUTSIDE RECORDS SUMMARY | 2019-10-27 08:13 | XMS REPORT | Summary of Care ---
:1955 Author Organization [facility] - Health Address [address] [place] [address] Care Team Providers Name Role Phone Molly Wang MD Primary Care Provider MD Capo Unavailable Sitter Unavailable Davis Dukes MD Unavailable Keith Nqavi Unavailable Encounter Details Date Type Department Care Team Description 09/04/2019 Orders Only [facility] Doctor Unassigned, No [address] [facility] [place] [address] [address] [place] [address] Allergies Active Allergy Reactions Severity Noted Date Comments Penicillin Rash, Shortness of Breath 02/02/2017 documented as of this encounter (statuses as of 09/21/2019) Medications Medication Sig Dispensed Refills Start Date [...] as of this encounter (statuses as of 09/21/2019) Active Problems Problem Noted Date Endometrial polyp [...] Added automatically from request for laura whitehead [id number] Diabetes mellitus type 2, controlled, without complica tions 02/04/2017 Essential hypertension 02/04/2017 GERD (gastroesophageal reflux disease) 02/04/2017 documented as of this encounter (statuses as of 09/21/2019) Immunizations Name Administration Dates Next Due Pneumococcal [...] Telemedicine Visit Family Medicine Rico Wang MD [address] [place] [address] [phone] Health Maintenance Due Date Last Done [...] Name Priority Date/Time Associated Diagnosis Comme nts REFERRAL- Routine 09/04/2019 12:01 AM CDT REQUEST/RESPONSE documented in this encounter Results Not on filedocumented in this encounter Insurance Payer Benefit Plan / Subscriber ID Effective Dates Phone Addre ss Type Group [facility] [id number] 2019-Present PPO HEALTHCARE/AARP documented as of this encounter
--- OUTSIDE RECORDS SUMMARY | 2019-10-27 08:15 | XMS REPORT | Continuity of Care Document ---
:1955 Author Organization [facility] t Address [address] [id number] Care Team Providers Name Role Phone Felipe Primary Care Physician Unavailable Felipe AYERS, Molly Attending Clinician Doctor Unassigned, Name Attending Clinician Unavailable Capo AYERS Attending Clinician Katerine Garcia MD Attending Clinician LIA Attending Clinician Unavailable LAZARO Attending Clinician Unavailable Payers Payer Name Policy Type Policy Number Effective Date Expiration Date S steve [facility] MEDICAREAARP xxxxxxxxx 2018 [place] MEDICARE COMPLETE 00:00:[address] [id number] Problems Condition Condition Condition Status Onset Resolution Last Treating Co mments Source Name Details Category Date Date Treatment Clinician Date Endometria Condition Active 2018-052019-09-21 Memoria l polyp 0-09 14:56:12 l 00:00: Adkins Endometria 00 l polyp Active 02/28/2019 09/21/2019 [facility] Health Fatty Condition Active 2019-09-21 Mem oria liver 9- 14:56:12 l Fatty 00:00: Siva liver 00 Active 02/19/2019 09/21/2019 [facility] Abdominal Condition Active 2019-09-21 Memoria pain 9- 14:56:12 l 00:00: Adkins Abdominal 00 pain Active 02/15/2019 09/21/2019 [facility] Health Pneumonia Condition Active 2019-09-21 Memoria 9-25 14:56:12 l 00:00: Siva Pneumonia 00 Active 02/14/2019 09/21/2019 [facility] LASHAY (acute Condition Active 2019-09-21 Memoria kidney 10-29 14:56:12 l injury) LASHAY 00:00: Adkins (acute 00 kidney injury) Active 10/29/2018 09/21/2019 [facility] Health Obesity Condition Active 2019-09-21 Me moria (BMI 6 14:56:12 l 30-39.9) Obesity 00:00: Akilah nn (BMI 00 30-39.9) Active 10/29/2018 09/21/2019 [facility] Health Pancytopen Condition Active 2019-09-21 Memoria ia 10-16 14:56:12 l 00:00: Adkins Pancytopen 00 ia Active 9 09/21/2019 [facility] ASCUS of Condition Active 2019-02-09 M emoria cervix 4-11 14:13:00 l with ASCUS of 00:00: Tito n negative cervix 00 high risk with HPV negative high risk HPV Active 08/31/2018 02/09/2019 [facility] ASCUS of Condition Active 2019-09-21 M emoria cervix 4-11 14:56:12 l with ASCUS of 00:00: Tito n negative cervix 00 high risk with HPV negative high risk HPV Active 08/31/2018 09/21/2019 [facility] Other Condition Active 2019-09-21 Mem oria urinary 8- 14:56:12 l incontinen Other 00:00: Akilah nn ce urinary 00 incontinen ce Active 8 09/21/2019 [facility] Health Lichen Condition Active 2019-09-21 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 14:56:12 l chronicus [place] 00:00: Akilah nn simplex 00 chronicus Active 06/18/2017 09/21/2019 [facility] Health Vulvar Condition Active 2019-09-21 Mem oria lesion 1-24 14:56:12 l Vulvar 00:00: Siva lesion 00 Active 06/15/2017 09/21/2019 [facility] Health Abnormal Condition Active 2019-09-21 M ramirezria EKG 1-12 14:56:12 l Abnormal 00:00: Tito n EKG 00 Active 06/03/2017 09/21/2019 [facility] Health Vulvar Condition Active 2016-052019-09-21 Mem oria itching 2-22 14:56:12 l Vul[place] 00:00: Adkins itching 00 Active 05/13/2017 09/21/2019 [facility] Health Vulvar Condition Active 2016-052019-09-21 Mem oria rash 2-22 14:56:12 l [place] 00:00: Adkins rash 00 Active 05/13/2017 09/21/2019 [facility] Health Screening Condition Active 2019-09-21 Memoria for 02-08 14:56:12 l colorectal 00:00: Tito gentile cancer Screening 00 for colorectal cancer Active 02/08/2017 09/21/2019 [facility] Health Diabetes Condition Active 2019-09-21 M emoria mellitus -15 14:56:12 l type 2, Diabetes 00:00: Akilah nn controlled mellitus 00 , without type 2, complicati controlled ons , without complicati ons Active 02/04/2017 09/21/2019 [facility] Health Essential Condition Active 2019-09-21 Memoria hypertensi -15 14:56:12 l on 00:00: Siva Essential 00 hypertensi on Active 7 09/21/2019 [facility] Health GERD Condition Active 2019-09-21 Mem oria (gastroeso -15 14:56:12 l phageal GERD 00:00: Adkins reflux (gastroeso 00 disease) phageal reflux disease) Active 02/04/2017 09/21/2019 [facility] Health History of History of Problem Resolve Univers esophageal esophageal d it y of reflux reflux [place] [facility] History of History of Problem Resolve Univers hypertensi hypertensi d it y of on on [place] [facility] History of History of Problem Resolve Univers type 2 type 2 d ity of diabetes diabetes [place] mellitus mellitus Physic i ans Extremity Extremity Problem Active Uni vers pain pain [facility] [facility] Perineal Perineal Problem Active Unive rs rash rash [place] [facility] Vaginal Vaginal Problem Active Univers dryness dryness [facility] of [place] [facility] Bacterial Diagnosis Active 2019-07-02 Memoria URI 20:49:42 l Adkins Bacterial URI Active 0 [facility] Acute Diagnosis Active 2019-07-02 Mem oria bacterial 20:49:42 l bronchitis Acute Akilah nn bacterial bronchitis Active 07/02/2019 [facility] Upper Diagnosis Active 2019-09-11 Mem oria abdominal 20:25:20 l pain Upper Adkins abdominal pain Active 0 [facility] Chronic Diagnosis Active 2019-09-05 Me moria pain of 19:12:45 l left knee Chronic Herm narendra pain of left knee Active 0 [facility] Limb Pain Problem Active 2013-08-03 Me moria 20:52:13 l Limb Siva Pain Active 4 [facility] Allergies, Adverse Reactions, Alerts Allergy Allergy Status Severity Reaction(s) Onset Inactive Treating Comm ents Source Name Type Date Date Clinician Penicill Propensi Active Rash [place] ins ty to 7-08 Methodi adverse 00:00: st reaction 00 s to drug Penicill Penicill Active OTH Rash, Memori a in in Shortness of 9-13 l Breath 00:00: Siva 00 Penicill DA Active [place] 2013-05 [facility] [place] [facility] Penicill drug Active Univers ins allergy [facility] [facility] Not Not Active Memoria Known Known l Siva Family History Family Member Diagnosis Comments Start Date Stop Date Source Unknown Family Family history of Multiple Uni versity of Member diabetes mellitus Family Members [place] as Physicians Unknown Family Family history of Multiple Uni versity of Member hypertension Family Members [place] [facility] Mother Family history of Univers ity of diabetes mellitus [place] [facility] Mother Family history of Univers ity of hypertension [place] [facility] ians Mother Family history of Univers ity of malignant neoplasm [place] [facility] of stomach Father Family history of Univers ity of diabetes mellitus [place] [facility] Father Family history of Univers ity of hypertension [place] [facility] i[facility] Sister Family history of Univers ity of diabetes mellitus [place] [facility] Sister Family history of Univers ity of hypertension [place] [facility] ians Natural Diabetes [place] brother [facility]iscopal Natural father Heart attack [place] [facility] Natural father Heart disease [place] [facility] Natural sister Diabetes [place] [facility] Social History Social Habit Start Date Stop Date Quantity Comments Source Sex Assigned At [place] M ethodist Alcohol intake 2018-11-27 2018-11-27 [facility] thodist 00:00:00 00:00:00 non-drinker (finding) Smoking Status Start Date Stop Date Source Tobacco smoking status NHIS Todd rial Adkins Medications Ordered Filled Start Stop Current Ordering Indication Dosage Frequency Signature Comments Components Source Medication Medication Date Date Medication? Clinician (SIG) Name Name metformin Yes Take 1 Memori a ER 500 mg 3-31 tablet by l 24 hr 00:00: mouth Adkins tablet 00 daily with breakfast. OMEPRAZOLE Yes TAKE 1 Memor ia 40 mg 2-17 CAPSULE BY l capsule 00:00: MOUTH Siva 00 DAILY AMLODIPINE Yes TAKE 1 Memor ia 5 mg tablet 2-17 TABLET BY l 00:00: MOUTH Adkins 00 DAILY clobetasoL Yes Apply to Ak moria 0.05 % 1-16 area(s) 2 l ointment 00:00: (two) Adkins 00 times daily. telmisartan 2018-05 Yes Take 1 Todd simone -hydrochlor 2-20 tablet by l othiazide 00:00: mouth Adkins 40-12.5 mg 00 daily. per tablet omeprazole 2018-05 No Take 1 Memor ia 40 mg 0-13 capsule by l capsule 00:00: mouth Adkins 00 daily. mirabegron 2018-05 Yes Take 1 Memor ia (MYRBETRIQ) 0-10 tablet by l 25 mg 00:00: mouth Adkins tablet 00 daily. AMLODIPINE No TAKE 1 Memor ia 5 mg tablet 9-25 TABLET BY l 00:00: MOUTH Siva 00 DAILY hydrocortis 2018- Yes hydrocorti [facility] 2.5 % 11-27 sone 2.5 % Meth laxmi cream 09:18: topical st 28 cream alclomethas 2018- Yes alclometas [place] one 08 one 0.05 % Methodi (ACLOVATE) 09:18: topical st 0.05 % 28 cream cream clobetasol Yes clobetasol [place] (TEMOVATE) 08 0.05 % Methodi 0.05 % 09:18: topical st ointment 28 ointment diclofenac Yes 2g 2 g. [place] (VOLTAREN) 11-27 Methodi 1 % gel 09:18: st 28 fluocinonid Yes fluocinoni Bacilio e (LIDEX) 11-27 de 0.05 % Metho di 0.05 % 09:18: topical st ointment 28 ointment blood sugar Yes Check [place] diagnostic 6-21 glucose Method i strips 00:00: once daily st (ONETOUCH 00 before ULTRA BLUE breakfast; TEST STRIP) ICD-10 strip test code E11.9 strips ONETOUCH Yes Check Memoria ULTRA BLUE 6-21 glucose l TEST STRIP 00:00: once daily H ermann strip 00 before breakfast; ICD-10 code E11.9 ONE TOUCH Yes Check Memoria DELICA 33 6-21 glucose l gauge Misc 00:00: once daily H ermann 00 before breakfast; ICD-10 code E11.9 telmisartan Yes Take 1 Todd simone -hydrochlor 5-31 tablet by l othiazide 00:00: mouth Adkins 40-12.5 mg 00 daily. per tablet hydrOXYzine Yes [place] (ATARAX) 50 5-25 Methodi MG tablet 00:00: st 00 amLODIPine Yes 5mg Take 5 mg [place] (NORVASC) 5 5-09 by mouth. Met hodi mg tablet 00:00: st 00 amLODIPine Yes Take 1 Memor ia 5 mg tablet 5-09 tablet by l 00:00: mouth Adkins 00 daily. hydrOXYzine Yes Take 1 Todd simone 50 mg 3-28 tablet by l tablet 00:00: mouth 3 Adkins 00 (three) times daily as needed for Itching. tacrolimus Yes Apply to Me moria 0.1 % 3-28 area(s) 2 l ointment 00:00: (two) Adkins 00 times daily. betamethaso Yes betamethas [place], 830 one, Methodi augmented, 00:00: augmented st (DIPROLENE) 00 0.05 % 0.05 % topical ointment ointment nystatin Yes Apply to Todd simone 100,000 8-30 area(s) 2 l unit/gram 00:00: (two) Adkins powder 00 times daily as needed for Itching. dec 2017 Yes Apply to Memoria betamethaso 8-30 area(s) at l ne 00:00: bedtime. Siva dipropionat 00 e 0.05 % ointment acetaminoph Yes Memori a en-codeine 6-24 l 300-30 mg 00:00: Adkins tablet 00 blood-gluco Yes Check [place] se meter 4-18 glucose Methodi (ONETOUCH 00:00: once daily st ULTRA2 00 before METER) kit breakfast; Diagnosis code E11.9 Blood-Gluco Yes Check Memor ia se Meter 4-18 glucose l (ONETOUCH 00:00: once daily He rmann ULTRA2) Kit 00 before breakfast; Diagnosis code E11.9 metFORMIN Yes metformin Karsten ston XR 1-29 ER 500 mg Methodi (GLUCOPHAGE 00:00: tablet,ext st -XR) 500 mg 00 ended 24 hr release 24 tablet hr metformin No Memoria ER 500 mg 1-29 l 24 hr 00:00: Siva tablet 00 omeprazole Yes Take 40 mg M emoria 40 mg 01-21 by mouth l capsule 00:00: daily. Adkins 00 Nystatin-Tr Nystatin-Tr Yes DALE Q0.5D APPLY 2 G M Univers iamcinolone iamcinolone - LAZARO Young Twice ity of 354725-4.1 045931-2.1 00:00: daily [place] UNIT/GM-% UNIT/GM-% 00 Physi ci External External ans Cream Cream Oxybutynin Oxybutynin Yes DALE 1 QD TAKE 1 Univers Chloride ER Chloride ER - LAZARO oYung TABLET ity of 5 MG Oral 5 MG Oral 00:00: DAILY [place] Tablet Tablet 00 Physici Extended Extended ans Release 24 Release 24 Hour Hour Estrace 0.1 Estrace 0.1 Yes DALE INSERT 1/4 Univers MG/GM MG/GM 05-31 LAZARO Young APPLICATOR it y of Vaginal Vaginal 00:00: FUL (1GM) [place] Cream Cream 00 VAGINALLY Physici TWICE ans WEEKLY. Meloxicam 0 Yes ; Start Memor ia 7.5 MG Oral 3-14 Date: l Tablet 05:00: 08/03/2013 Akilah nn 00 (Active) Losartan Losartan Yes Univers Potassium Potassium ity o f TABS TABS [place] Physici ans metFORMIN metFORMIN Yes Unive rs HCl - 500 HCl - 500 ity o f MG Oral MG Oral [place] Tablet Tablet Physici ans Vital Signs Vital Name Observation Time Observation Value Comments Source Systolic (mm Hg) 2019-07-02 20:03:00 Todd [place] Diastolic (mm Hg) 2019-07-02 20:03:00 Mem orial Siva Heart Rate 2019-07-02 20:03:00 [facility] Temperature Oral (F) 2019-07-02 20:03:00 36.56 Jennifer [facility] Height 2019-07-02 20:03:00 167.6 cm [facility] Weight 2019-07-02 20:03:00 [facility] Body height 2018-11-27 09:14:00 167.6 cm [facility] Body weight 2018-11-27 09:14:00 [facility] BMI 2018-11-27 09:14:00 39.54 kg/m2 [facility] Weight 2018-09-01 09:30:00 241.375 [lb_av] [facility] [place] [facility] Body Mass Index 2018-09-01 09:30:00 38.96 kg/m2 Unive rsity of Calculated [place] [facility]ician [facility] Height 2018-09-01 09:30:00 66 [in_us] [facility] [place] [facility] Height 2018-03-24 10:49:00 66 [in_us] [facility] [place] [facility] Weight 2018-03-24 10:49:00 238 [lb_av] [facility] [place] [facility] Body Mass Index 2018-03-24 10:49:00 38.41 kg/m2 Unive rsity of Calculated [place] [facility] Procedures Procedure Date / Time Performing Clinician Source Performed REFERRAL- REQUEST/RESPONSE 2019-09-04 10:01:00 Doctor Meseret Perla [place] EXTERNAL PROVIDER RECORDS 2019-07-09 12:01:00 Doctor Meseret Perla [place] NOTICE OF BILLING 2019-02-09 19:12:46 Doctor Anthony Perla [facility] [place] PATIENTS RI ARTHROCENTESIS 2018-12-27 13:30:00 Bandar Garcia ASPIR&/INJ MAJOR JT/BURSA W/O US RI ARTHROCENTESIS 2018-12-21 11:10:00 Bandar Garcia ASPIR&/INJ MAJOR JT/BURSA W/O US RI ARTHROCENTESIS 2018-12-13 13:30:00 Bandar Garcia ASPIR&/INJ MAJOR JT/BURSA W/O US RI ARTHROCENTESIS 2018-11-27 09:20:00 Bandar Garciaist ASPIR&/INJ MAJOR JT/BURSA W/O US [U] XRAY KNEE 4 OR MORE 2018-03-21 00:00:00 [facility] VWS LEFT [address] Physicians History of Cholecystectomy [facility] Physicians [facility] History of Shoulder [facility] [place] [facility] Right Physicians History of Kidney Surgery [facility] Physicians Plan of Care Planned Activity Planned Date Details Comments Source Future Scheduled 2027-03-03 Plan of Care [code = Mem orial Siva Test 00:00:00 27334-7] Future Scheduled 2027-03-03 Screening for [facility] Test 00:00:00 malignant neoplasm of colon (procedure) [code = 439873288] Future Scheduled 2021-08-17 Plan of Care [code = Mem orial Siva Test 00:00:00 10415-0] Future Scheduled 2021-08-17 Screening for [facility] H ermann Test 00:00:00 malignant neoplasm of cervix (procedure) [code = 103722702] Future Scheduled 2020-02-16 Creatinine measurement M emorial Siva Test 00:00:00 (procedure) [code = 56212952] Future Scheduled 2020-02-10 Plan of Care [code = Mem orial Adkins Test 00:00:00 54363-1] Future Scheduled 2019-12-22 INFLUENZA VACCINE [place] [facility] Test 00:00:00 [code = INFLUENZA VACCINE] Future Scheduled 2019-12-20 Screening for [facility] H ermann Test 00:00:00 malignant neoplasm of breast (procedure) [code = 891057254] Future 2019-11-17 Plan of Care [code = Mem orial Siva Test 00:00:00 97268-9] Future 2019-10-04 Plan of Care [code = Mem orial Adkins Test 00:00:00 16281-9] Future 2019-10-04 Calculated low density [facility]orial Siva Test 00:00:00 lipoprotein cholesterol level (procedure) [code = 692227848] Future 2019-10-04 Microalbumin Memorial rmann Test 00:00:00 measurement, urine, quantitative (procedure) [code = 874852811] Future 2019-09-21 Plan of Care [code = Mem orial Siva Test 14:55:51 54856-8] Future 2019-09-11 Plan of Care [code = Mem orial Adkins Test 15:15:22 07756-9] Future 2019-09-05 Plan of Care [code = Mem orial Adkins Test 19:12:34 17833-7] Future 2019-09-05 Plan of Care [code = Mem orial Siva Test 12:11:04 10107-6] Future 2019-08-29 Plan of Care [code = Mem orial Adkins Test 12:38:12 84042-2] Future 2019-08-21 Plan of Care [code = Mem orial Adkins Test 17:35:51 75198-7] Future 2019-08-15 Plan of Care [code = Mem orial Adkins Test 14:09:59 99421-4] Future 2019-08-15 Hemoglobin A1c Memorial Adkins Test 00:00:00 measurement (procedure) [code = 05790809] Future Scheduled 2019-08-10 Examination of retina Me morial Siva Test 00:00:00 (procedure) [code = 109233644] Future Scheduled 2019-07-09 Plan of Care [code = Mem orial Adkins Test 16:00:03 53917-2] Future Scheduled 2019-07-09 Plan of Care [code = Mem orial Siva Test 14:22:41 61068-3] Future Scheduled 2019-07-02 Plan of Care [code = Mem orial Siva Test 20:22:41 31514-3] Future Scheduled 2019-06-07 Plan of Care [code = Mem orial Adkins Test 15:24:52 97169-3] Future Scheduled 2019-05-23 Diabetic foot [facility] H ermann Test 00:00:00 examination (regime/therapy) [code = 239323774] Future Scheduled 2019-04-05 Plan of Care [code = Mem orial Adkins Test 00:00:00 65785-6] Future Scheduled 2019-02-09 Plan of Care [code = Mem orial Adkins Test 14:12:50 43846-6] Future Scheduled 2019-01-21 Plan of Care [code = Mem orial Siva Test 00:00:00 62039-4] Future Scheduled 2018-07-25 Plan of Care [code = Mem orial Adkins Test 00:00:00 64441-7] Future Scheduled 2018-07-25 Examination of retina Ak morial Adkins Test 00:00:00 (procedure) [code = 342191579] Future Scheduled 2013-07-17 Plan of Care [code = Mem orial Adkins Test 00:00:00 78452-7] Future Scheduled 2005 BREAST CANCER [facility] thodist Test 00:00:00 SCREENING [code = BREAST CANCER SCREENING] Future Scheduled 2005 COLONOSCOPY SCREENING [facility] Test 00:00:00 [code = COLONOSCOPY SCREENING] Future Scheduled 2005 [facility]:00 [code = SHINGLES VACCINES (#1)] Future Scheduled 2005 Plan of Care [code = Mem orial Siva Test 00:00:00 61958-6] Future Scheduled 1976 Screening for [facility]odist Test 00:00:00 malignant neoplasm of cervix (procedure) [code = 483597327] Future Scheduled 1974 Plan of Care [code = Mem orial Siva Test 00:00:00 23477-2] Future Scheduled 1973 Plan of Care [code = Mem orial Adkins Test 00:00:00 82003-0] Future Scheduled 1966 Plan of Care [code = Mem orial Adkins Test 00:00:00 39627-4] Future Scheduled 1965 DIABETIC FOOT EXAM [place] [facility] Test 00:00:00 [code = DIABETIC FOOT EXAM] Future Scheduled 1965 URINE MICROALBUMIN [place] [facility] Test 00:00:00 [code = URINE MICROALBUMIN] Future Scheduled 1961 Plan of Care [code = Mem orial Siva Test 00:00:00 02837-7] Future Scheduled 1955 DIABETIC RETINAL EYE Karsten ston [facility] Test 00:00:00 EXAM [code = DIABETIC RETINAL EYE EXAM] Encounters Start End Encounter Admission Attending Care Care Encounter Source Date/Time Date/Time Type Type Clinicians Facility Department ID 2019-09-11 2019-09-11 [facility] Felipe [facility] 1.2.840.114 [id number] 10:00:22 10:15:22 ne Visit Wondiful A [place] [id number] [place] [id number] Professio [phone] [address] 2019-09-11 [facility] 1.2.840.114 [id number] 10:00:22 10:15:22 ne Visit Wondiful A [place] [id number] [place] [id number] Professio [phone] [address] 2019-09-04 2019-09-04 Telephone Felipe [facility] 1.2.840.114 [id number] 00:00:00 00:00:00 Wondiful A [place] [id number] [place] [id number] Professio [phone] [address] 2019-09-04 2019-09-04 Telephone Felipe [facility] 1.2.840.114 [id number] 00:00:00 00:00:00 Wondiful A Health [id number] [place] [id number] Professio [phone] [place] [address] [address] 2019-09-04 2019-09-04 Orders Doctor ZO 1.2.840.114 [id number] 00:00:00 00:00:00 Only Unassigned, LILLY [id number] [place] [facility] 4.2.7.2.686 [id number] [id number] 2019-09-04 2019-09-04 Telephone Felipe [facility] 1.2.840.114 [id number] 00:00:00 00:00:00 Wondiful A [place] [id number] [place] [id number] Professio [phone] [address] 2019-09-04 2019-09-04 [facility] 1.2.840.114 [id number] 00:00:00 00:00:00 Wondiful A Health [id number] [place] [id number] Professio [phone] [place] [address] Office [facility] 2019-09-04 2019-09-04 Orders Doctor ZO 1.2.840.114 [id number] 00:00:00 00:00:00 Only Unassigned, LILLY [id number] [place] [facility] 4.2.7.2.686 [id number] 009 2019-08-28 2019-08-28 [facility] 1.2.840.114 [id number] 00:00:00 00:00:00 Wondiful A [place] [id number] [place] [id number] Professio [phone] [address] 2019-08-28 2019-08-28 [facility] 1.2.840.114 [id number] 00:00:00 00:00:00 Wondiful A [place] [id number] [place] [id number] Professio [phone] [address] 2019-08-20 2019-08-20 [facility] 1.2.840.114 [id number] 00:00:00 00:00:00 Wondiful A Health [id number] [place] [id number] Professio [phone] [address] 2019-08-20 2019-08-20 [facility] 1.2.840.114 [id number] 00:00:00 00:00:00 Wondiful A Health [id number] [place] [id number] Professio [phone] [address] 2019-08-15 2019-08-15 [facility]phone [facility] 1.2.840.114 [id number] 00:00:00 00:00:00 Wondiful A Health [id number] [place] [id number] Professio [phone] [place] [address] [address] 2019-08-15 2019-08-15 Telephone [facility] 1.2.840.114 [id number] 00:00:00 00:00:00 Wondiful A Health [id number] [place] 4.2.7.2.686 Professio [phone] [place] [address] [address] 2019-07-09 2019-07-09 Orders Doctor ZO 1.2.840.114 [id number] 00:00:00 00:00:00 Only Unassigned, LILLY [id number] [place] [facility] 4.2.7.2.686 [id number] [id number] 2019-07-09 2019-07-09 Orders Doctor ZO 1.2.840.114 [id number] 00:00:00 00:00:00 Only Unassigned, LILYL [id number] [place] [facility] 4.2.7.2.686 [id number] [id number] 2019-07-07 2019-07-07 [facility] 1.2.840.114 [id number] 00:00:00 00:00:00 Wondiful A Health [id number] [place] [id number] Professio [phone] [place] [address] [address] 2019-07-07 2019-07-07 [facility] 1.2.840.114 [id number] 00:00:00 00:00:00 Wondiful A Health [id number] [place] [id number] Professio [phone] [place] [address] [address] 2019-07-02 2019-07-02 Office [facility] 1.2.840.114 [id number] 13:47:16 14:22:41 Visit Wondiful A Health [id number] [place] [id number] Professio [phone] [place] 0[address] One 2019-07-02 2019-07-02 Office Felipe [facility] 1.2.840.114 [id number] 13:47:16 14:22:41 Visit Concepcionful A Health 350.1.13.10 [place] 4.2.7.2.686 Professio [phone] [facility] 044 Office Building One 2019-07-02 2019-07-02 Office Felipe [facility] 1.2.840.114 [id number] 13:47:16 14:22:41 Visit Doug A Health [id number] [place] [id number] Professio [phone] [place] [address] [address] 2019-06-05 2019-06-05 Telephone Capo [facility] 1.2.840.114 [id number] 00:00:00 00:00:00 [place] [id number] [place] [phone] 2019-02-09 2019-02-09 Orders Doctor ZO 1.2.840.114 [id number] 00:00:00 00:00:00 Only Unassigned, LILLY [id number] [place] [facility] 4.2.7.2.686 [id number] [id number] 2018-09-01 2018-09-01 JEANNE [facility] [id number] Univers 09:30:00 09:30:00 t; GALINDO FITZGERALD M.D. at [place], [place] [facility] 2018-08-25 2018-08-25 JEANNE [facility]ellan [facility] [id number] Univers 09:15:00 09:15:00 t; GALINDO FITZGERALD M.D. [place], [place] [facility] ans 2018-03-24 2018-03-24 JE[facility]NE [facility] [id number] Univers 09:00:00 09:00:00 t; GALINDO FITZGERALD M.D. at [place], [place] [facility] 2016-05-31 2016-05-31 JEANNE Fritz [facility] [id number] Univers 11:00:00 11:00:00 t; DALE WILLIS, Hannah Farris M.D. Physici ans 2013-08-03 2013-08-03 Outpatient [facility] [id number] 15:52:13 15:52:13 Results Test Description Test Time Test Comments Results Result Sourc e Comments Large Joint Bandar Garcia MD [place] Arthrocentesis: 7 12/27/2018 5:10 M ethodist knee, L knee 13:30:00 PMLarge Joint Arthrocentesis: knee, L kneeConsent given by: patientTimeout: Immediately prior to procedure a time out was called to verify the correct patient, procedure, equipment, customer support manager and site/side marked as required Supporting DocumentationIndicatio ns: pain Procedure DetailsPreparation: Patient was prepped and draped in the usual sterile fashionUltrasound guided: noLocation: knee - L knee Left side:Needle size: 22 GApproach: anterolateral (3ml of 1% lidocaine)Left knee medications administered: 2 mL sodium hyaluronate (viscosup) 30 mg/2 mLPatient tolerance: patient tolerated the procedure well with no immediate complications Large Joint Bandar Garcia MD [place] Arthrocentesis: 1 12/21/2018 12:16 M ethodist knee, L knee 11:10:00 PMLarge Joint Arthrocentesis: knee, L kneeConsent given by: patientTimeout: Immediately prior to procedure a time out was called to verify the correct patient, procedure, equipment, customer support manager and site/side marked as required Supporting DocumentationIndicatio ns: pain Procedure DetailsPreparation: Patient was prepped and draped in the usual sterile fashionUltrasound guided: noLocation: knee - L knee Left side:Needle size: 22 GApproach: anterolateral (3ml of 1% lidocaine)Left knee medications administered: 2 mL sodium hyaluronate (viscosup) 30 mg/2 mLPatient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
[2019-10-27] MEDS ORDERED: CODEINE 30MG/APAP 300MG TAB ONE (08:56)
[2019-10-27] MEDS ORDERED: LIDOCAINE 4% PATCH ONE (09:07)
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
[2019-10-27 10:09] VITALS: BP 132/79; TEMP 97.4; O2SAT 100
== END 2019-10-27 10:03 | disposition home or self-care (01) ==
LOC: ER 08:06
DX: M54.5 Low back pain (principal); V43.52XA Car driver injured in collision with other type car in traffic accident, initial encounter; I10 Essential (primary) hypertension; E11.9 Type 2 diabetes mellitus without complications; Z88.0 Allergy status to penicillin
CPT/HCPCS: 72100; 99283

== ENCOUNTER 2020-03-18 05:39 | Emergency (ER) | payer MEDICARE ==
--- OUTSIDE RECORDS SUMMARY | 2020-03-18 05:42 | XMS REPORT | Continuity of Care Document ---
:1955 Author Organization [employer] Care Team Providers Name Role Phone [employer] Information [employer] Unavailable Un available Problems Problem Status Onset Classification Date Comments Sourc e Date Reported Limb Pain Active 08/03/2013 [facility] Medications Medication Details Route Status Patient Ordering Order Source Instructions Provider Date Meloxicam 7.5 ; Start Active [facility] Oral Date: 014 [facility] Tablet 08/03/2013 (Active) Allergies, Adverse Reactions, Alerts Substance Category Reaction Severity Reaction Status Date Comments S ource type Reported Not Known [facility] Immunizations No Data Provided for This Section Results No Data Provided for This Section Pathology Reports No Data Provided for This Section Diagnostic Reports No Data Provided for This Section Consultation Notes No Data Provided for This Section Discharge Summaries No Data Provided for This Section History and Physicals No Data Provided for This Section Vital Signs No Data Provided for This Section Encounters Location Location Encounter Encounter Reason Attending ADM MO Stat us Source Details Type Number For Provider Date Date Visit AUDIT [id number] 08/03 /2013 Physicians Procedures No Data Provided for This Section Assessment and Plan No Data Provided for This Section Plan of Care No Data Provided for This Section Social History No Data Provided for This Section Family History No Data Provided for This Section Advance Directives Order Name Results Value Date Source Advance Directives Advance Directives No Advance 08/03/2013 [place] [facility] Directives available. Functional Status No Data Provided for This Section
--- OUTSIDE RECORDS SUMMARY | 2020-03-18 05:42 | XMS REPORT | Clinical Summary ---
:1955 Author Organization [facility] Address [address] [place] [address] Care Team Providers Name Role Phone Felipe [...] ointment Active Problems No known active problems Surgical History Surgery Date Site/Laterality Comments GALLBLADDER SURGERY ORIF, FRACTURE, TIBIA 05/23/1990 - 05/22/1991 Right ROTATOR CUFF REPAIR 05/23/2008 - 05/22/2009 Right BREAST SURGERY Medical History Medical History Date Comments Arthritis Diabetes (HCC) Hypertension GERD (gastroesophageal reflux disease) Family History Medical History Relation Name Comments Diabetes Brother Bro Heart attack Father Dad Heart disease Father Dad Diabetes Sister Sis Relation Name Status Comments Brother Bro Father Dad Mother Sister Sis Social History Tobacco Use Types Packs/Day Years Used Date Never Smoker 0 0 Smokeless Tobacco: Never Used Alcohol Use Drinks/Week oz/Week Comments Never Sex Assigned at Date Recorded Not on file Last Filed Vital Signs Not on file Plan of Treatment Health Maintenance Due Date Last Done Comments DIABETES: RETINAL EYE EXAM 1965 DIABETIC FOOT EXAM 1965 URINE MICROALBUMIN 1965 CERVICAL CANCER SCREENING 1976 BREAST CANCER SCREENING 2005 COLONOSCOPY SCREENING 2005 SHINGLES VACCINES (#1) 2005 INFLUENZA VACCINE 12/22/2019 Results Not on fileafter 03/18/2019 Advance Directives For more information, please contact: [phone] Type Date Recorded Patient Ribbon Inker Explanati on Advance Directives, Living Will and Medical Power of Conference Interpreter
--- OUTSIDE RECORDS SUMMARY | 2020-03-18 05:43 | XMS REPORT | Summary of Care ---
:1955 Author Organization [facility] Address [address] [place] [address] Care Team Providers Name Role Phone Molly Wang MD Primary Care Provider MD Capo Unavailable Sitter Unavailable Davis Dukes MD Unavailable Keith Naqvi Unavailable Reason for Visit Reason Comments Refill Request Encounter Details Date Type Department Care Team Description 12/22/2019 Refill [facility] Family Medicine Doug Lauren MD Refill Request - [address] [place] [address] [place] [address] [place] [address] [phone] Allergies Active Allergy Reactions Severity Noted Date Comments Penicillin Rash, Shortness of Breath 02/02/2017 documented as of this encounter (statuses as of 12/24/2019) Medications Medication Sig Dispensed Refills Start Date [...] Take 1 tablet 30 tablet 0 03/01/2019 Acti ve (MYRBETRIQ) 25 mg by mouth tabletIndications: daily. Urinary frequency, Urge incontinence clobetasoL 0.05 % Apply to 60 g 1 06/07/2019 A ctive ointmentIndications: area(s) 2 Lichen simplex (two) times chronicus daily. OMEPRAZOLE 40 mg TAKE 1 CAPSULE 90 capsule 1 07/09/2019 Active capsuleIndications: BY MOUTH Gastroesophageal DAILY reflux disease, esophagitis presence not specified metformin ER 500 mg Take 1 tablet 90 tablet 2 11/07/2019 Active 24 hr by mouth daily tabletIndications: with Controlled type 2 breakfast. diabetes mellitus without complication, without long-term current use of insulin pantoprazole 20 mg EC Take 20 mg by 0 Active tablet mouth daily. amLODIPine 2.5 mg Take 1 tablet 90 tablet 1 12/11/2019 Active tabletIndications: by mouth at Essential bedtime. DOSE hypertension, History DECREASE. of hypotension sulfamethoxazole-trim Take 1 tablet 20 tablet 0 12/11/2019 Active ethoprim 800-160 mg by mouth 2 per (two) times tabletIndications: daily. Abscess, axilla TELMISARTAN-HYDROCHLO TAKE 1 TABLET 90 tablet 3 12/24/2019 Active ROTHIAZIDE 40-12.5 mg BY MOUTH per DAILY tabletIndications: Essential hypertension telmisartan-hydrochlo Take 1 tablet 90 tablet 1 05/11/201908/09 Discontinued rothiazide 40-12.5 mg by mouth 20 per daily. tabletIndications: Essential hypertension documented as of this encounter (statuses as of 12/24/2019) Active Problems Problem Noted Date Morbid obesity with body mass index of 40.0-49.9 11/21 Endometrial polyp 02/28/2019 Overview: 05/04/19 - in [...] Added automatically from request for laura whitehead [id number] Diabetes mellitus type 2, controlled, without complica tions 02/04/2017 Essential hypertension 02/04/2017 GERD (gastroesophageal reflux disease) 02/04/2017 documented as of this encounter (statuses as of 12/24/2019) Immunizations Name Administration Dates Next Due Pneumococcal Polysaccharide, PPSV23 03/31/2019, 05/23/2016, 05/23/2009 (PNEUMOVAX) Zoster Vaccine Recombinant 12/06/2019 documented as of this encounter Social History Tobacco Use Types Packs/Day Years Used Date Never Smoker Smokeless Tobacco: Never Used Alcohol Use Drinks/Week oz/Week Comments No Sex Assigned at Date Recorded Not on file COVID-19 Exposure Response Date Recorded In the last month, have you been in contact with No / Unsure 12/24/2019 8:29 AM CDT someone who was confirmed or suspected to have Coronavirus / COVID-19? documented as of this encounter Last Filed Vital Signs Not on filedocumented in this encounter Plan of Treatment Date Type Specialty Care Team Description 12/31/2019 Office Visit Urology Yayo Armijo MD [address] [place] [address]. [place], [place] [phone] 06/10/2020 Office Visit Family Medicine Estrada Wang MD [address] [place], [place] [phone] Health Maintenance Due Date Last Done Comments DTaP,Tdap,and Td Vaccines (1 - 1974 Tdap) COLON CANCER SCREENING ANNUAL 2005 FIT/FOBT COLON CANCER SCREENING FIT DNA 2005 EVERY 3 YEARS COLON CANCER SCREENING 2005 SIGMOIDOSCOPY EVERY 5 YEARS HgA1C 08/15/2019 02/14/2019, 10/03/2018, 02/02/2017 LDL-C 10/04/2019 10/03/2018, 02/02/2017 URINE MICROALBUMIN 10/04/2019 10/03/2018, 02/02/2017 Breast Cancer Screening 12/20/2019 12/19/2018, 07/17/2012 (MAMMOGRAM) INFLUENZA VACCINE (#1) 2020 Zoster Recombinant Vaccine 01/31/2020 12/06/2019 (SHINGRIX) (2 of 2) CREATININE (SERUM) 02/16/2020 02/15/2019, 02/14/2019, 11/16/2018, Additional history exists Depression Screening 11/21/2020 11/22/2019 EYE EXAM 12/04/2020 12/05/2019, 07/25/2017 FOOT EXAM 12/10/2020 12/11/2019, 05/23/2018 PAP SMEAR 08/17/2021 08/17/2018, 08/17/2018, 05/18/2012 COLONOSCOPY 03/03/2027 03/03/2017 Colorectal Cancer Screening 03/03/2027 HEPATITIS C (HCV) SCREEN Completed 11/16/2018 PNEUMOCOCCAL 0-64 YEARS COMBINED Completed 03/31/2019, 05/2016, SERIES 05/23/2009 documented as of this encounter Goals Goal Patient Goal Associated Recent Patient-Stated? Author Type Problems Progress weight down General Yes [place], to 247 lbs Doug Barnes MD by October of 2017 documented as of this encounter Results Not on filedocumented in this encounter Visit Diagnoses Diagnosis Essential hypertension Unspecified essential hypertension documented in this encounter Insurance Payer Benefit Plan / Subscriber ID Effective Phone Address T ype Group Dates UNITED UNITED [id number] 2019-Prese PPO HEALTHCARE HEALTHCARE/AAR nt P [employer]LL[employer]/AARP [id number] 2019-Prese Me dicare Adv HEALTHCARE - MEDICARE nt HMO MANAGED MEDICARE ADVANTAGE documented as of this encounter
--- OUTSIDE RECORDS SUMMARY | 2020-03-18 05:43 | XMS REPORT | Continuity of Care Document ---
:1955 Author Organization [facility] t Address [address] [place] [address] Care Team Providers Name Role Phone Felipe Primary Care Physician Unavailable Provider, Urgent Care Attending Clinician Unavailable oDn AYERS Attending Clinician LIA Attending Clinician Unavailable LAZARO Attending Clinician Unavailable Payers Payer Name Policy Type Policy Number Effective Date Expiration Date S ource Problems Condition Condition Condition Status Onset Resolution Last Treating Co mments Source Name Details Category Date Date Treatment Clinician Date History of History of Problem Resolve Univers [...] Active Uni vers pain pain [facility] of [place] [facility] Well Well Problem Active Univers female female ity of exam with exam with [place] routine routine Physici gynecologi gynecologi an s toni exam toni exam Perineal Perineal Problem Active Unive rs rash rash it[facility] of [place] [facility] Vaginal Vaginal Problem Active Univers dryness dryness ity of [place] [facility] Limb Pain Problem Active 2013-08-03 Me moria 20:52:13 l Limb [place] Pain Active 4 [facility] Allergies, Adverse Reactions, Alerts Allergy Allergy Status Severity Reaction(s) Onset Inactive Treating Comm ents Source Name Type Date Date Clinician Penicill Propensi Active Rash [place] ins ty to 11-27 Methodi adverse 00:00: st reaction 00 s to drug Penicill DA Active ID 2013-05 [facility] ins 004 [place] 00:00: d 00 Medical [place] Penicill drug Active Univers ins allergy ity of [place] [facility] Not Not Active Memoria Known [...] Family history of Univers ity of hypertension [place] [facility] Mother Family history of Univers ity of malignant neoplasm [place] [facility] of stomach Father Family history of Univers ity of diabetes mellitus [place] [facility] Father Family history of Univers ity of hypertension [place] [facility] Sister Family history of Univers ity of diabetes mellitus [place] [facility] Sister Family history of Univers ity of hypertension [place] [facility] Natural Diabetes [place] brother Congregational Natural father Heart attack [place] [facility] Natural father Heart disease [place] [facility] Natural sister Diabetes [facility] Social History Social Habit Start Date Stop Date Quantity Comments Source Sex Assigned At [facility] ethodist Tobacco use and 2018-11-27 2018-11-27 Never used [facility] ethodist exposure 00:00:00 00:00:00 Alcohol intake 2018-11-27 2018-11-27 Lifetime [facility] thodist 00:00:00 00:00:00 non-drinker (finding) Smoking Status Start Date Stop Date Source Never smoker [facility] Medications Ordered Filled Start Stop Current Ordering Indication Dosage Frequency Signature Comments Components Source Medication Medication Date Date Medication? Clinician (SIG) Name Name hydrocortis Yes hydrocorti [place] one 2.5 % 11-27 sone 2.5 % Meth laxmi cream 09:18: topical st 28 cream alclomethas Yes alclometas [place] one 7-08 one 0.05 % Methodi (ACLOVATE) 09:18: topical st 0.05 % 28 cream cream clobetasol Yes clobetasol [place] marie (TEMOVATE) 08 0.05 % Methodi 0.05 % 09:18: topical st ointment 28 ointment diclofenac Yes 2g 2 g. [place] (VOLTAREN) 08 Methodi 1 % gel 09:18: st 28 fluocinonid Yes fluocinoni [place] e (LIDEX) 11-27 de 0.05 % Metho di 0.05 % 09:18: topical st ointment 28 ointment blood sugar Yes Check [place] diagnostic 6-21 glucose Method i strips 00:00: once daily st (ONETOUCH 00 before ULTRA BLUE breakfast; TEST STRIP) ICD-10 strip test code E11.9 strips hydrOXYzine Yes [place] (ATARAX) 50 5-25 Methodi MG tablet 00:00: st 00 amLODIPine Yes 5mg Take 5 mg Ho [place] (NORVASC) 5 5-09 by mouth. Met hodi mg tablet 00:00: st 00 betamethaso Yes betamethas [place] ne, 8-30 one, Methodi augmented, 00:00: augmented st (DIPROLENE) 00 0.05 % 0.05 % topical ointment ointment blood-gluco Yes Check [place] se meter 4-18 glucose Methodi (ONETOUCH 00:00: once daily st ULTRA2 00 before METER) kit breakfast; Diagnosis code E11.9 metFORMIN Yes metformin Karsten ston XR 1-29 ER 500 mg Methodi (GLUCOPHAGE 00:00: tablet,ext st -XR) 500 mg 00 ended 24 hr release 24 tablet hr Nystatin-Tr Nystatin-Tr Yes DALE Q0.5D APPLY 2 G M Univers iamcinolone iamcinolone 1-09 LAZARO MNaDNa Twice ity of 925541-6.1 458266-9.1 00:00: daily [place] UNIT/GM-% UNIT/GM-% 00 Physi ci External External ans Cream Cream Oxybutynin Oxybutynin Yes DALE 1 QD TAKE 1 Univers Chloride ER Chloride ER 1-09 LAZARO Young TABLET ity of 5 MG Oral 5 MG Oral 00:00: DAILY [place] Tablet Tablet 00 Physici Extended Extended ans Release 24 Release 24 Hour Hour Estrace 0.1 Estrace 0.1 Yes DALE INSERT 1/4 Univers MG/GM MG/GM 1-09 LAZARO Young APPLICATOR it y of Vaginal Vaginal 00:00: FUL (1GM) [place] Cream Cream 00 VAGINALLY Physici TWICE ans WEEKLY. Meloxicam Yes ; Start Memor ia 7.5 MG Oral -14 Date: l Tablet 05:00: 08/03/2013 [place]il[place] nn 00 (Active) Losartan Losartan Yes Univers Potassium Potassium ity o f TABS TABS [place] Physici ans metFORMIN metFORMIN Yes Unive rs HCl - 500 HCl - 500 ity o f MG Oral MG Oral [place] Tablet Tablet Physici ans Vital Signs Vital Name Observation Time Observation Value Comments Source Weight 2018-09-01 09:30:00 241.375 [lb_av] [facility] Physicians Body Mass Index 2018-09-01 09:30:00 38.96 kg/m2 [facility] Calculated Physicians Height 2018-09-01 09:30:00 66 [in_us] [facility] Physicians Height 2018-03-24 10:49:00 66 [in_us] [facility] Phys[facility] Weight 2018-03-24 10:49:00 238 [lb_av] [facility] Physicians Body Mass Index 2018-03-24 10:49:00 38.41 kg/m2 [facility] Calculated Physicians Procedures Procedure Date / Time Performing Clinician Source Performed [U] XRAY KNEE 4 OR MORE 2018-03-21 00:00:00 [facility] [id number] Physicians History of Cholecystectomy [facility] Physicians History of Treatment Of Universi [facility] The Right Leg Physicians History of Shoulder [facility] [place] [facility] Right Physicians [facility] Plan of Care Planned Activity Planned Date Details Comments Source Future Scheduled 2019-12-22 INFLUENZA VACCINE [place] [facility] Test 00:00:00 [code = INFLUENZA VACCINE] Future Scheduled 2005 BREAST CANCER [facility] thodist Test 00:00:00 SCREENING [code = BREAST CANCER SCREENING] Future Scheduled 2005 COLONOSCOPY SCREENING [place] [facility] Test 00:00:00 [code = COLONOSCOPY SCREENING] Future Scheduled 2005 SHINGLES VACCINES (#1) [place] [facility] Test 00:00:00 [code = SHINGLES VACCINES (#1)] Future Scheduled 1976 Screening for [facility] thodist Test 00:00:00 malignant neoplasm of cervix (procedure) [code = 346960544] Future Scheduled 1965 DIABETES: RETINAL EYE [place] [facility] Test 00:00:00 EXAM [code = DIABETES: RETINAL EYE EXAM] Future Scheduled 1965 DIABETIC FOOT EXAM [place] [facility] Test 00:00:00 [code = DIABETIC FOOT EXAM] Future Scheduled 1965 URINE MICROALBUMIN [place] [facility] Test 00:00:00 [code = URINE MICROALBUMIN] Encounters Start End Encounter Admission Attending Care Care Encounter Source Date/Time Date/Time Type Type Clinicians Facility Department ID 2020-03-15 2020-03-15 Urgent Provider, [facility] [id number] 13:46:51 14:43:28 Care [facility] [id number] Care [place] [id number] [facility] [id number] nal 044 Office Building One 2020-03-04 2020-03-[address] [facility] [id number] 07:48:13 08:18:[facility] [id number] [place] [id number] [facility] [id number] Primary & 204 Specialty Care 2018-09-01 2018-09-01 JEANNE [facility] [id number] [facility] 09:30:00 09:30:00 t; GALINDO FITZGERALD M.D. at [facility] GALINDORocky Kate M.D. Physici ans 2018-08-25 2018-08-25 JEANNE Capellan [facility] [id number] [facility] 09:15:00 09:15:00 t; GALINDO FITZGERALD M.D. [facility] [place] Physici ans 2018-03-24 2018-03-24 JEANNE [facility] [id number] [facility] 09:00:00 09:00:00 t; GALINDO FITZGERALD M.D. at [facility] Rocky MEDLEY M.D. Physici ans 2016-05-31 2016-05-31 AppointJEANNE Bobby [facility] [id number] Univers 11:00:00 11:00:00 t; DALE WILLIS ity of [place]HEL[place], M.D. [place] M.D. Physici ans 2013-08-03 2013-08-03 Outpatient [facility] [id number] 15:52:13 15:52:13 Results Test Description Test Time Test Comments Results Result Comments Source URINALYSIS COMPLETE 2018-07-12 13:56:00 Test Item Value [...] NEGATIVE Leuk/mcL NEGATIVE DRUGS OF ABUSE SCREEN [id number] 13:56:00 Test Item Value Reference Range Interpretation [...] NEGATIVE SCcutoff <300 NG/ML [place]) RULE OUT ID [id number] 10:28:00 Test Item Value Reference Range Interpretation [...] results may stephanie yby method. BASIC METABOLIC [id number] 10:24:00 Test Item Value Reference Range Interpretation [...] CA) 9.0 MG/DL 8.5-10.1 N HEPATIC FUNCTION [id number] 10:24:00 Test Item Value Reference Range Interpretation [...] 78 Unit/L 45-117 N code = ALKP) [id number] 10:24:00 Test Item Value Reference Range Interpretation Comments LIPASE (test code = LIP) 93 Unit/L 114-286 L URINALYSIS [id number] 10:11:00 Test Item Value Reference Range Interpretation [...] code = LEUU) DRUGS OF ABUSE SCREEN [id number] 10:11:00 Test Item Value Reference Range Interpretation [...] = SCcutoff <300 NG/ML [place]) CBC W/AUTO [id number] 10:07:00 Test Item Value Reference Range Interpretation [...] REQUIRED (test code = NO DIFF/SCN CRITERIA MDYANA) - XR CHEST 1 [id number] 09:28:00 Name: NINA NEELY [place] : 1955 Age/S: 63 / F [id number] [facility] Unit #: [id number] Loc: [place] [address] Phys: Nash Osei MD Acct: [id number] Dis Date: Status: REG ER PHONE #: [phone] Exam Date: 07/12/2018919 FAX #: Reason: cp EXAMS: CPT: [id number] XR CHEST 1 V 81532 Fluoro Time: DAP (Gy m2): Air Kerma [...] PAGE 1 Signed Report Name: NINA NEELY [facility] : 1955 Age/S: 63 / F [facility] Unit #: [id number] Loc: [place] [address] Phys: Nash Osei MD Acct: [id number] Dis Date: Status: REG ER PHONE #: [phone] Exam Date: 07/12/2018919 FAX #: Reason: cp EXAMS: CPT: [id number] XR CHEST 1 V 59587 Fluoro Time: DAP (Gy m2): Air Kerma (mGy): <Continued> Technologist: Breanna Kapadia, RT(R); Aleks Yan RT(R)(MR) Trnscb Date/Time: 07/12/2018 (927) [id number] Orig Print D/T: S: 07/12/2018 (0931) PAGE 2 Signed Report[U] XRAY KNEE 4 OR MORE VWS LEFT [id number] 09:05:00Images acquired, not reported on this accession number.[facility]
--- OUTSIDE RECORDS SUMMARY | 2020-03-18 05:43 | XMS REPORT | Summary of Care ---
:1955 Author Organization [facility] Address [address] [place] [address] Care Team Providers Name Role Phone Molly Wang MD Primary Care Provider MD Capo Unavailable Sitter Unavailable Davis Dukes MD Unavailable Keith Naqvi Unavailable Reason for Visit Reason Comments LAB Encounter Details Date Type Department Care Team Description 12/24/2019 Grounds And Nursery Specialist Visit [facility] Wilma Wang MD [address] [place] [address] [place] [address] Essential hypertension; Professional Office 2, [facility] Lab Controlled type 2 diabetes mellitus with out complication, without long-term current use of insulin Building Phlebotomy Lab Professional Office Building [address] [place] [address] , [address] [place] [address] Allergies Active Allergy Reactions Severity Noted [...] Gastroesophageal reflux disease, esophagitis presence not specified metformin ER 500 mg 24 Take 1 tablet by 90 tablet 2 11/07/2019 Active hr tabletIndications: mouth daily with Controlled type 2 breakfast. diabetes mellitus without complication, without long-term current use of insulin pantoprazole 20 mg EC Take 20 mg by 0 Active tablet mouth daily. amLODIPine 2.5 mg Take 1 tablet by 90 tablet 1 12/11/2019 Active tabletIndications: mouth at Essential hypertension, bedtime. DOSE History of hypotension DECREASE. sulfamethoxazole-trimet Take 1 tablet by 20 tablet 0 0 Active hoprim 800-160 mg per mouth 2 (two) tabletIndications: times daily. Abscess, axilla documented as of this encounter (statuses as [...] Added automatically from request for laura whitehead [id number] Diabetes mellitus type 2, controlled, without complica [...] Signs Not on filedocumented in this encounter Nursing Notes Mandy Padgett - 12/24/2019 9:00 AM CDT Patient has been identified by name and was provided with cup, antiseptic towelette, and clean catchinstructions. 1 urine specimen(s) sent. Unpreserved 1 Urine Culture Aptima tube Other urine Venipuncture collection performed by clean technique on the left anticubitus. Total of 3 attempts were made. Slight pressure and a bandage/dressing were applied to the site(s). The patient experienced no complications. The following specimens were processed according to instructions and sent to [facility] laboratories per lab order on 12/24/19: LT BLUE SST 1 RED LAV 2 PPT DK GREEN (LiHep) DK GREEN (SodH) ANDREW DK BLUE (K2) DK BLUE (S) ACD Blood Culture NIPT/NTD documented in this encounter Plan of Treatment Date Type Specialty Care Team Description 12/31/2019 Office Visit Urology Yayo Armijo MD [address] [place] [address] [phone] 06/10/2020 Office Visit Family Medicine Estrada Wang MD [address] [place] [phone] Health Maintenance Due Date Last Done [...] Diagnoses Diagnosis Essential hypertension Unspecified essential hypertension Controlled type 2 diabetes mellitus with out complication, without long-term current use of insulin documented in this encounter Insurance Payer Benefit Plan / Subscriber ID Effective Phone Address T ype Group Dates [employer] [id number] 2019-Prese PPO HEALTHCARE HEALTHCARE/AAR nt [facility]/AAR [id number] 2019-Pre[place] dicare [facility] HEALTHCARE - MEDICARE nt HMO MANAGED MEDICARE ADVANTAGE (Work) documented as of this encounter
--- OUTSIDE RECORDS SUMMARY | 2020-03-18 05:44 | XMS REPORT | Summary of Care ---
:1955 Author Organization [facility] Address [address] [place] [address] Care Team Providers Name Role Phone Molly Wang MD Primary Care Provider MD Capo Unavailable Sitter Unavailable Davis Dukes MD Unavailable Keith Naqvi Unavailable Reason for Visit Reason Comments Urgency FREQUENCY (Routine) Status Reason Specialty Diagnoses / Referred By Referred To Procedures Contact Contact Authorized URO-UROLOGY / Diagnoses Urge incontinence of urine Aleksander Wang Laith, Urology Procedures CONSULT/REFERRAL UROLOGY Doug Barnes MD MD [address] [place] [phone] Phone: Fax: Fax: Encounter Details Date Type Department Care Team Description 12/31/2019 Office Visit [facility] Urology- Ольга Armijo MD Urgency of urination [address] (Primary Dx) [address] [place] [place] [address] [address] [address] [place] [address] Allergies Active Allergy Reactions Severity Noted Date Comments Penicillin Rash, Shortness of Breath 02/02/2017 documented as of this encounter (statuses as of 12/31/2019) Medications Medication Sig Dispensed Refills Start Date [...] mouth daily. tabletIndications: Urinary frequency, Urge incontinence clobetasoL 0.05 % [...] 2 (two) tabletIndications: times daily. Abscess, axilla TELMISARTAN-HYDROCHLORO TAKE 1 TABLET BY 90 tablet 3 0 Active THIAZIDE 40-12.5 mg per MOUTH DAILY tabletIndications: Essential hypertension documented as of this encounter (statuses as of 12/31/2019) Active Problems Problem Noted Date Morbid obesity [...] Overview: Added automatically from request for laura ventura [id number] Diabetes mellitus type 2, controlled, without complica tions 02/04/2017 Essential hypertension 02/04/2017 GERD (gastroesophageal reflux disease) 02/04/2017 documented as of this encounter (statuses as of 12/31/2019) Immunizations Name Administration Dates Next Due Pneumococcal [...] Sign Reading Time Taken Comments Blood Pressure 135/82 12/31/2019 2:12 PM CDT Pulse 100 12/31/2019 2:12 PM CDT Temperature 36.4 C (97.5 F) 12/31/2019 2:12 PM CDT Respiratory Rate 16 12/31/2019 2:12 PM CDT Oxygen Saturation - - Inhaled Oxygen Concentration - - Weight 116.1 kg (256 lb) 12/31/2019 2:12 PM CDT Height 167.6 cm (5' 6") 12/31/2019 2:12 PM CDT Body Mass Index 41.32 12/31/2019 2:12 PM CDT documented in this encounter Progress Notes Yayo Armioj MD - 12/31/2019 2:15 PM CDT Urology Clinic Note / History and Physical Referred by: Dr Wang Chief Complaint: I was asked to give my opinion regarding Nanci Barros is a 64 year old female who presents with MELLO History of Present Illness 12/31/2019: Nanci Barros is a 64 year old female with complex PMHx as below. Hx of persistent MELLO for the last three years, aggravated with any physical activity , 3 ppd. No hx of UTI or hematuria No hx of constipation P4,+0 ( All VND) No previous cystoscopy, UDS or uro winch runner procedure Histories Past Medical History: Diagnosis Date Abnormal EKG 06/03/2017 LASHAY (acute kidney injury) 10/29/2018 ASCUS of cervix with negative high risk HPV 08/31/2018 Diabetes mellitus Esophageal reflux Essential hypertension 02/04/2017 Fatty liver 02/19/2019 Fatty liver 02/19/2019 History of diverticulitis Other urinary incontinence 01/19/2018 Pancytopenia 10/16/2018 Pancytopenia 10/16/2018 Past Surgical History: Procedure Laterality Date CHOLECYSTECTOMY COLONOSCOPY N/A 03/03/2017 Surgeon: Humaira Monge MD; Location: [facility] OR [facility] ESOPHAGOGASTRODUODENOSCOPY Upper 11/22/2019 Surgeon: Tish Pickering MD; Location: [facility] OR [facility] LEG/ANKLE SURGERY PROC UNLISTED SHOULDER ARTHROSCOPY Right [...] Financial resource strain: Not on file Food insecurity Worry: Not on file Inability: Not on file Transportation needs Medical: Not on file Non-medical: Not on file Tobacco Use Smoking status: Never Smoker Smokeless tobacco: Never Used Substance and Sexual Activity Alcohol use: No Drug use: No Sexual activity: Not Currently Partners: Male Lifestyle Physical activity Days per week: Not on file Minutes per session: Not on file Stress: Not on file Relationships Social connections Talks on phone: Not on file Gets together: Not on file Attends sabianist service: Not on file Active member of club or organization: Not on file Attends meetings of clubs or organizations: Not on file Relationship status: Not on file Intimate partner violence Fear of current or ex partner: Not on file Emotionally abused: Not on file Physically abused: Not on file Forced sexual activity: Not on file Other Topics Concern Not on file Social History Narrative No domestic abuse or violence. Allergies Allergies Allergen Reactions Penicillin Rash and Shortness of Breath Review of Systems Constitutional: negative Eyes: negative Ears, nose, mouth, throat: negative Cardiovascular: negative Respiratory: negative Gastrointestinal: negative Genitourinary: (+) per HPI Musculoskeletal: negative Integumentary: negative Neurological: negative Psychiatric: negative Endocrine: negative Hematologic/Lymphatic: negative Allergic/Immunologic: negative, allergies listed above Physical Examination Blood pressure 135/82, pulse 100, temperature 36.4 C (97.5 F), temperature source Temporal Artery, resp. rate 16, height 1.676 m (5' 6"), weight 116.1 kg (256 lb). Constitutional: healthy, no acute distress Eyes: normal external eye, conjunctiva and sclera normal Ears, nose, mouth, throat: normocephalic, moist mucous membranes Cardiovascular: regular rate and rhythm Respiratory: respirations unlabored on room air Gastrointestinal: soft, non-distended, no pain Genitourinary: verbal consent obtained and chaperoned ( Ms Ida Bradley) normal external genitalia and EUM, atrophic vaginitis, cystocele Musculoskeletal: no clubbing, cyanosis or edema Skin: no rashes Neurologic: alert and oriented x3 Psychiatric: appropriate mood and affect Hematologic: no bruising Laboratory Per HPI Radiology No final results containing an impression from the past 30 days were found. Procedure Note PVR: 26 Assessment Nanci Barros is a 64 year old female with complex PMHx morbid obesity and type II DM, P4+0 (all VND): 1. Persistent MELLO for the last 3 years , x3 ppd. No improvement with a trial of Ach. Patient is seeking expert opinion on surgical options for MELLO. Plan - Ucx - Refer to Dr Ochoa female urology expert Yayo Armijo MD Ida corbin - 12/31/2019 2:15 PM CDTPer order Post void residual by bladder scan = 26 ml, results reported to provider. Ida Bradley 12/31/2019 2:39 PM andee Maciel LVN - 12/31/2019 2:15 PM CDTPt is here today with c/o of urinary leakage, frequency, urgency. Pain 0/10. Travel, Fall Risk, Medication and allergies reviewed. Sandee Cervantes LVN documented in this encounter Plan of Treatment Date Type Specialty Care Team Description 01/10/2020 Office Visit Urology John Ochoa M D [address] [facility] [address] [place], [place] [phone] 06/10/2020 Office Visit Family Medicine Estrada Wang MD [address] [place] [phone] Name Type Priority Associated Diagnoses Order S chedule URINE CULTURE LAB Routine Urgency of urination Expect ed: 12/31/2019, Expires: 12/30/2020 Health Maintenance Due Date Last Done Comments DTaP,Tdap,and Td Vaccines (1 - 1974 Tdap) COLON CANCER SCREENING ANNUAL 2005 FIT/FOBT COLON CANCER SCREENING FIT DNA 2005 EVERY 3 YEARS COLON CANCER SCREENING 2005 SIGMOIDOSCOPY EVERY 5 YEARS Breast Cancer Screening 12/20/2019 12/19/2018, 07/17/2012 (MAMMOGRAM) INFLUENZA VACCINE (#1) 2020 Zoster Recombinant Vaccine 01/31/2020 12/06/2019 (SHINGRIX) (2 of 2) HgA1C 06/25/2020 12/24/2019, 02/14/2019, 10/03/2018, Additional history exists Depression Screening 11/21/2020 11/22/2019 EYE EXAM 12/04/2020 12/05/2019, 07/25/2017 FOOT EXAM 12/10/2020 12/11/2019, 05/23/2018 CREATININE (SERUM) 12/23/2020 12/24/2019, 02/15/2019, 02/14/2019, Additional history exists LDL-C 12/23/2020 12/24/2019, 10/03/2018, 02/02/2017 URINE MICROALBUMIN 12/23/2020 12/24/2019, 10/03/2018, 02/02/2017 PAP SMEAR 08/17/2021 08/17/2018, 08/17/2018, 05/18/2012 COLONOSCOPY [...] encounter Procedures Procedure Name Priority Date/Time Associated Comments Diagnosis POCT URINALYSIS AUTO Routine 12/31/2019 2:27 PM Urgency of Results for this CDT urination procedure are i n the results section. documented in this encounter Results POCT URINALYSIS, INSTRUMENT (12/31/2019 2:27 PM CDT) Pathologist Sig nature POCT U SP GRAV 1.025 1.005 - 1.025 mg/dl POCT PH U 5.5 5 - 8 mg/dl POCT U LEUK EST negative Negative - Negative POCT U NIT negative Negative - Negative POCT U PROT negative Negative - Negative POCT U GLU negative Negative - Negative POCT U KETONE negative Negative - Negative POCT U UROBILI 0.2 0.2 - 1 mg/dl POCT U BILI negative Negative - Negative POCT U BLD negative Negative - Negative POCT U COLOR light yellow POCT U APPEAR sightly cloudy Specimen Urine - URINE, CLEAN CATCH documented in this encounter Visit Diagnoses Diagnosis Urgency of urination - Primary documented in this encounter Insurance Payer Benefit Plan / Subscriber ID Effective Phone Address T ype Group Dates [facility] [id number] 2019-Antony sheikh [facility]IC[facility] ADVANTAGE (Work) documented as of this encounter
--- OUTSIDE RECORDS SUMMARY | 2020-03-18 05:44 | XMS REPORT | Summary of Care ---
:1955 Author Organization [facility] Address [address] [place] [address] Care Team Providers Name Role Phone Molly Wang MD Primary Care Provider MD Capo Unavailable Sitter Unavailable Davis Dukes MD Unavailable Keith Naqvi Unavailable Reason for Visit Reason Comments Orders Encounter Details Date Type Department Care Team Description 01/02/2020 Case Management [facility] Pediatric Estrada Wang, Orders and Adult [facility] [place] [address] [place] [address] [address] [phone] [place] [address] [phone] Allergies Active Allergy Reactions Severity Noted Date Comments Penicillin Rash, Shortness of Breath 02/02/2017 documented as of this encounter (statuses as of 01/02/2020) Medications Medication Sig Dispensed Refills Start Date [...] as of this encounter (statuses as of 01/02/2020) Active Problems Problem Noted Date Morbid obesity [...] Added automatically from request for laura whitehead [id number] Diabetes mellitus type 2, controlled, without complica tions 02/04/2017 Essential hypertension 02/04/2017 GERD (gastroesophageal reflux disease) 02/04/2017 documented as of this encounter (statuses as of 01/02/2020) Immunizations Name Administration Dates Next Due Pneumococcal [...] Visit Urology John Ochoa M D [address] [facility] [address] [place], [place] [phone] 06/10/2020 Office Visit Family Medicine Estrada Wang MD [address] [place], [place] [phone] Name Type Priority Associated Diagnoses Order S chedule BASIC METABOLIC PANEL LAB Routine Renal dysf unction 1 Occurrences starting (NA, K, CL, CO2, Hyperkalemia 01/02/2020 until GLUCOSE, BUN, 04/03/2020 CREATININE, CA) Health Maintenance Due Date Last Done Comments [...] Type Problems Progress weight down General Yes Alexander, to 247 lbs Doug Barnes MD by October of 2017 documented as of this encounter Results Not on filedocumented in this encounter Visit Diagnoses Diagnosis Renal dysfunction - Primary Unspecified disorder of kidney and urete r Hyperkalemia Hyperpotassemia documented in this encounter Insurance Payer Benefit Plan / Subscriber ID Effective Phone Address T ype Group Dates [facility] [id number] 2019-Prese Me kori Hess HEALTHCARE - MEDICARE nt [place] MANAGED MEDICARE ADVANTAGE documented as of this encounter
--- OUTSIDE RECORDS SUMMARY | 2020-03-18 05:44 | XMS REPORT | Summary of Care ---
:1955 Author Organization [facility] Address [address] [place] [address] Care Team Providers Name Role Phone Molly [...] UROLOGY Doug Barnes MD MD [address] [place] [phone] Phone: Fax: Fax: Encounter Details Date Type Department Care Team Description 12/31/2019 Office Visit [facility] Urology- Ольга Armijo MD Urgency of urination [address] (Primary Dx) [address] [place] [place] [address] [address] [address] [place] [address] Allergies Active Allergy Reactions Severity [...] Added automatically from request for laura ventura [id number] Diabetes mellitus type 2, controlled, without complica [...] documented in this encounter Progress Notes Yayo Armijo MD - 12/31/2019 2:15 PM CDT Urology [...] VND) No previous cystoscopy, UDS or uro art director procedure Histories Past Medical History: Diagnosis Date Abnormal EKG 06/03/2017 LASHAY (acute kidney injury) 10/29/2018 ASCUS of cervix with negative high risk HPV 08/31/2018 Diabetes mellitus Esophageal reflux Essential hypertension 02/04/2017 Fatty liver 02/19/2019 Fatty liver 02/19/2019 History of diverticulitis Other urinary incontinence 01/19/2018 Pancytopenia 10/16/2018 Pancytopenia 10/16/2018 Past Surgical History: Procedure Laterality Date CHOLECYSTECTOMY COLONOSCOPY N/A 03/03/2017 Surgeon: Humaira Monge MD; Location: [facility] OR [facility] ESOPHAGOGASTRODUODENOSCOPY Upper 11/22/2019 Surgeon: Tish Pickering MD; Location: [facility] OR [facility] LEG/ANKLE SURGERY PROC UNLISTED SHOULDER ARTHROSCOPY Right [...] file Gets together: Not on file Attends scientology service: Not on file Active member of [...] verbal consent obtained and chaperoned ( Ms dIa Bradley) normal external genitalia and EUM, atrophic [...] Visit Urology John Ochoa M D [address] [facility] [address] [place], [place] [phone] 06/10/2020 Office Visit Family Medicine Estrada Wang MD [address] [place] [phone] Name Type Priority Associated Diagnoses [...] Effective Phone Address T ype Group Dates [facility] [id number] 2019-Antony sheikh [facility] HEALTHCARE - [facility]IC[facility] (Work) documented as of this encounter
--- OUTSIDE RECORDS SUMMARY | 2020-03-18 05:45 | XMS REPORT | Summary of Care ---
:1955 Author Organization [facility] Address [address] [place] [address] Care Team Providers Name Role Phone Molly Wang MD Primary Care Provider MD Capo Unavailable Sitter Unavailable Davis Dukes MD Unavailable Keith Naqvi Unavailable Reason for Visit Reason Comments LAB WORK Auth/Cert Status Reason Specialty Diagnoses / Procedures Referred By Susan anderson Referred To Contact Phlebotomy Diagnoses Renal dysfunction Adc Pob Lab Draw Procedures bmp Professional Office Building [address] [place] [address] , [address] [place] [address] Phone: Fax: Encounter Details Date Type Department Care Team Description 01/11/2020 Putty And Patch Worker Visit [facility] Wilma Wang MD [address] [place] [address] [facility] [place] [address] Renal dysfunction; Professional Office Pob, Adc Lab Main Hyperkalemia Building Phlebotomy Lab Professional [facility] Building [address] [place] [address] , [address] [place] [address] Allergies Active Allergy Reactions Severity Noted Date Comments Penicillin Rash, Shortness of Breath 02/02/2017 documented as of this encounter (statuses as of 01/11/2020) Medications Medication Sig Dispensed Refills Start Date [...] as of this encounter (statuses as of 01/11/2020) Active Problems Problem Noted Date Morbid obesity [...] Added automatically from request for laura whitehead [id number] Diabetes mellitus type 2, controlled, without complica tions 02/04/2017 Essential hypertension 02/04/2017 GERD (gastroesophageal reflux disease) 02/04/2017 documented as of this encounter (statuses as of 01/11/2020) Immunizations Name Administration Dates Next Due Pneumococcal [...] been in contact with No / Unsure 01/11/2020 9:30 AM CDT someone who was confirmed or suspected to have Coronavirus / COVID-19? documented as of this encounter Last Filed Vital Signs Not on filedocumented in this encounter Nursing Notes Bonny Smallwood - 01/11/2020 9:30 AM CDT Venipuncture collection performed by clean technique on the left anticubitus. Total of 1 attempts were made. Slight pressure and a bandage/dressing were applied to the site(s). The patient experienced no complications. The following specimens were processed according to instructions and sent to [facility] laboratories per lab order on today: LT BLUE SST 1 RED LAV PPT DK GREEN (LiHep) DK GREEN (SodH) ANDREW DK BLUE (K2) DK BLUE (S) ACD Blood Culture NIPT/NTD documented in this encounter Plan of Treatment Date Type Specialty Care Team Description 01/17/2020 Office Visit Urology John Ochoa M D [address] [facility] [address] [place], [place] [phone] Room, Malachi Uro Procedure 06/10/2020 Office Visit Family Medicine Estrada aWng MD [address] [place] [phone] Health Maintenance Due Date Last Done Comments DTaP,Tdap,and Td Vaccines (1 - 1974 Tdap) COLON CANCER SCREENING ANNUAL 2005 FIT/FOBT COLON CANCER SCREENING FIT DNA 2005 EVERY 3 YEARS COLON CANCER SCREENING 2005 SIGMOIDOSCOPY EVERY 5 YEARS Breast Cancer Screening 12/20/2019 12/19/2018, 07/17/2012 (MAMMOGRAM) INFLUENZA VACCINE (#1) 2020 Zoster Recombinant Vaccine 01/31/2020 12/06/2019 (SHINGRIX) (2 of 2) PNEUMOCOCCAL 0-64 YEARS COMBINED 03/31/2020 03/31/2019, 05/2016, SERIES (3 of 3 - PCV13) 05/23/2009 HgA1C 06/25/2020 12/24/2019, 02/14/2019, 10/03/2018, Additional history exists EYE EXAM 12/04/2020 12/05/2019, 07/25/2017 FOOT EXAM 12/10/2020 12/11/2019, 05/23/2018 CREATININE (SERUM) 12/23/2020 12/24/2019, 02/15/2019, 02/14/2019, Additional history exists LDL-C 12/23/2020 12/24/2019, 10/03/2018, 02/02/2017 URINE MICROALBUMIN 12/23/2020 12/24/2019, 10/03/2018, 02/02/2017 Depression Screening 01/09/2021 01/10/2020 PAP SMEAR 08/17/2021 08/17/2018, 08/17/2018, 05/18/2012 COLONOSCOPY 03/03/2027 03/03/2017 Colorectal Cancer Screening 03/03/2027 HEPATITIS C (HCV) SCREEN Completed 11/16/2018 documented as of this encounter Goals Goal Patient Goal Associated Recent Patient-Stated? Author Type Problems Progress weight down General Yes Felipe, to 247 lbs Doug Barnes MD by October of 2017 documented as of this encounter Results Not on filedocumented in this encounter Visit Diagnoses Diagnosis Renal dysfunction Unspecified disorder of kidney and urete r Hyperkalemia Hyperpotassemia documented in this encounter Insurance Payer Benefit Plan / Subscriber ID Effective Phone Address T ype Group Dates [facility] [id number] 2019-Antony sheikh [facility] (Work) documented as of this encounter
--- OUTSIDE RECORDS SUMMARY | 2020-03-18 05:45 | XMS REPORT | Summary of Care ---
:1955 Author Organization [facility] Address [address] [place] [address] Care Team Providers Name Role Phone Molly Wang MD Primary Care Provider MD Capo Unavailable Sitter Unavailable Davis Dukes MD Unavailable Keith Naqvi Unavailable Reason for Visit Reason Comments LEAKING URINE (Routine) Status Reason Specialty Diagnoses / Referred By Referred To Procedures Contact Contact Authorized URO-UROLOGY / Diagnoses Urge incontinence of urine Aleksander Wang Laith, Urology Procedures CONSULT/REFERRAL UROLOGY Doug Barnes MD MD [address] [place]. [facility] [phone] Phone: Fax: Fax: Encounter Details Date Type Department Care Team Description 01/10/[address] [facility] Urology- Adriel Ochoa MD Urgency of urination (Primary Dx); [address] Pelvic organ prolapse quanti fication stage 4 cystocele [address] [facility] [address] [place] [address] [phone] Allergies Active Allergy Reactions Severity Noted Date Comments Penicillin Rash, Shortness of Breath 02/02/2017 documented as of this encounter (statuses as of 01/10/2020) Medications Medication Sig Dispensed Refills Start Date [...] as of this encounter (statuses as of 01/10/2020) Active Problems Problem Noted Date Morbid obesity [...] Added automatically from request for laura whitehead [id number] Diabetes mellitus type 2, controlled, without complica tions 02/04/2017 Essential hypertension 02/04/2017 GERD (gastroesophageal reflux disease) 02/04/2017 documented as of this encounter (statuses as of 01/10/2020) Immunizations Name Administration Dates Next Due Pneumococcal Polysaccharide, PPSV23 03/31/2019, 05/23/2016, 05/23/2009 (PNEUMOVAX) Zoster Vaccine Recombinant 12/06/2019 documented as of this encounter Social History Tobacco Use Types Packs/Day Years Used Date Never Smoker Smokeless Tobacco: Never Used Tobacco Cessation: Counseling Given: No Alcohol Use Drinks/Week oz/Week Comments No Sex [...] Sign Reading Time Taken Comments Blood Pressure 126/78 01/10/2020 1:09 PM CDT Pulse 76 01/10/2020 1:09 PM CDT Temperature - - Respiratory Rate 18 01/10/2020 1:09 PM CDT Oxygen Saturation - - Inhaled Oxygen - - Concentration Weight 116.1 kg (256 lb) 01/10/2020 1:09 PM CDT Height 167.6 cm (5' 6") 01/10/2020 1:09 Simultaneous f iling. PM CDT User may not hav e seen previous data. Body Mass Index 41.32 01/10/2020 1:09 PM CDT documented in this encounter Progress Notes John Ochoa MD - 01/10/2020 1:00 PM CDT John Ochoa MD Nanny Caregiver of Urology Female Urology, Voiding Dysfunction and Pelvic Reconstruction [facility] Division of Urology Referring Provider: Yayo Armijo MD [address] [place] [phone] Armijo, Thank you for your referral of Mrs Nanci Barros to our clinic. As you know, she is a very pleasant 64 year old female who presented with urinary incontinence and pelvic organ prolpase. We will plan to further evaulation with cystoscopy and UDS. Please contact me with any questions or concerns,and I will keep you apprised of his progress. Sincerely, John Ochoa MD REASON FOR REFERRAL/CHIEF COMPLAINT: Urinary incontinence Urgency and increased urinary frequency HISTORY OF PRESENT ILLNESS: This is a 64 year old female who was referred to the urology clinic for evaluation of urinary incontinence. The patient is . The patient has urinary frequency, urgency and urgency urinary incontinence. A detailed urologic review of systems reveals daytime frequency every 1 hours, has moderate urgency, nocturia x 2-3. The patient no stress urinary incontinence, but has moderate urge urinary incontinence, and also nocturnal incontinence, and requires 3-4 pads protection. The patient deneisdifficulty emptying, the need to strain to void, and has complete sense of emptying. The urinary stream is stong. The patient deneis a history of catheterization. The patient deneis dysuria and or gross hematuria. The patient reports a daily fluid intake of 2-3 bottles, soda 3 cans but quit recently . The patient denies a history of kidney stones. She reports normal bowel movements. A gynecologic review of systems reveals: G4, P4 female with tom vaginal deliveries. She is menopausal. She deneis a history of a hysterectomy. PAST MEDICAL HISTORY: Past Medical History: Diagnosis Date Abnormal EKG 06/03/2017 LASHAY (acute kidney injury) 10/29/2018 ASCUS of cervix with negative high risk HPV 08/31/2018 Diabetes mellitus Esophageal reflux Essential hypertension 02/04/2017 Fatty liver 02/19/2019 Fatty liver 02/19/2019 History of diverticulitis Other urinary incontinence 01/19/2018 Pancytopenia 10/16/2018 Pancytopenia 10/16/2018 PAST SURGICAL HISTORY: Past Surgical History: Procedure Laterality Date CHOLECYSTECTOMY COLONOSCOPY N/A 03/03/2017 Surgeon: Humaira Monge MD; Location: [facility] OR Location ESOPHAGOGASTRODUODENOSCOPY Upper 11/22/2019 Surgeon: Tish Pickering MD; Location: [facility] OR Location LEG/ANKLE SURGERY PROC UNLISTED SHOULDER ARTHROSCOPY Right SURGICAL HISTORY OTHER (SHX) Right leg surgery MEDICATIONS: Current Outpatient Medications: TELMISARTAN-HYDROCHLOROTHIAZIDE 40-12.5 mg per tablet, TAKE 1 TABLET BY MOUTH DAILY, Disp: 90 tablet, Rfl: 3 amLODIPine 2.5 mg tablet, Take 1 tablet by mouth at bedtime. DOSE DECREASE., Disp: 90 tablet, Rfl: 1 sulfamethoxazole-trimethoprim 800-160 mg per tablet, Take 1 tablet by mouth 2 (two) times daily., Disp: 20 tablet, Rfl: 0 pantoprazole 20 mg EC tablet, Take 20 mg by mouth daily., Disp: , Rfl: metformin ER 500 mg 24 hr tablet, Take 1 tablet by mouth daily with breakfast., Disp: 90 tablet, Rfl: 2 OMEPRAZOLE 40 mg capsule, TAKE 1 CAPSULE BY MOUTH DAILY, Disp: 90 capsule, Rfl: 1 clobetasoL 0.05 % ointment, Apply to area(s) 2 (two) times daily., Disp: 60 g, Rfl: 1 mirabegron (MYRBETRIQ) 25 mg tablet, Take 1 tablet by mouth daily., Disp: 30 tablet, Rfl: 0 ONE TOUCH DELICA 33 gauge Misc, Check glucose once daily before breakfast; ICD-10 code E11.9, Disp: 100 Each, Rfl: 3 ONETOUCH ULTRA BLUE TEST STRIP strip, Check glucose once daily before breakfast; ICD-10 code E11.9, Disp: 100 Strip, Rfl: 3 aug betamethasone dipropionate 0.05 % ointment, Apply to area(s) at bedtime., Disp: 45 g, Rfl:6 Blood-Glucose Meter (ONETOUCH ULTRA2) Kit, Check glucose once daily before breakfast; Diagnosiscode E11.9, Disp: 1 Kit, Rfl: 0 ALLERGIES: Allergies Allergen Reactions Penicillin Rash and Shortness of Breath FAMILY HISTORY: Family History Problem Relation Age of Onset Hypertension Mother Hypertension Father Cancer Father Lung Diabetes Sister Diabetes Brother Asthma Brother Cancer Maternal Aunt Stomach Arthritis NoFHx defects NoFHx Breast Cancer NoFHx Colon Cancer NoFHx Ovarian Cancer NoFHx Uterine Cancer NoFHx Depression NoFHx Genetic NoFHx Heart NoFHx High cholesterol NoFHx Mental retardation NoFHx Neurological NoFHx Osteoporosis NoFHx Psychiatry NoFHx SOCIAL HISTORY: Social History Socioeconomic History Marital status: Spouse [...] file Gets together: Not on file Attends bahai service: Not on file Active member of [...] History Narrative No domestic abuse or violence. REVIEW OF SYSTEMS: General: Denies chills, fatigue, fever, hot flashes or weight changes ENT: Denies headaches, nasal congestion, nasal discharge or sore throat Hematological: denies bleeding problems or blood clots Endocrine: denies hot flashes or temperature intolerance Respiratory: denies cough, shortness of breath, or wheezing Cardiovascular: denies chest pain or dyspnea on exertion Gastrointestinal: denies abdominal pain, constipation, diarrhea or nausea/vomiting Genito-Urinary: per HPI Musculoskeletal: denies joint pain, joint stiffness, joint swelling, muscle pain or muscular weakness Neurological: denies dizziness, headaches, numbness/tingling or visual changes Skin: denies rashes, moles or other lesions. PHYSICAL EXAMINATION: BP 126/78 | Pulse 76 | Resp 18 | Ht 5' 6" (1.676 m) | Wt 256 lb (116.1 kg) | BMI 41.32 kg/m General: Well Developed. No apparent distress. Eyes: Normal conjunctiva. ENT: No external lesions. Neck is supple. No masses. Resp: Normal respiratory effort. CV: No LE edema. GI: Abdomen soft nontender nondistended. Musculoskeletal: Normal gait and station. Normal range of motion. Skin: No rash, lesions, ulcers. Psych: Normal judgement/ insight. Awake and oriented x 3. Genitalia: Normal external genitalia. Moderate vaginal atrophy, no urethral hypermobility. Pelvic organ prolapse: stage 3 cystocele, 3 rectocele. The cervix is present without cervical motion tenderness, with stage 3 prolapose. There is no anterior vaginal wall mass. No evidence of foreign body. There is no leakage with coughing. LABS: Reviewed PVR 170 ml ASSESSMENT AND PLAN: The patient is a 64 year old female who was referred to the urology clinic for evaluation of urinary incontinence and pelvic organ prolapse. Urgency and urgency UI POP The diagnosis of pelvic organ prolapse and its etiology was discussed with the patient. Treatment options were discussed including: expectant management, physical therapy, pessary trial, and surgical intervention. We discussed risks and benefits of surgery. All surgery for prolapse is not 100% successful and there is a chance of recurrence or failure.. The patient willing to have definitive treatment, in the form of surgery. We discussed with her in details with handout the type, and the approach of cystocele repair. We gave her some patient education material for the POP and the different type of managements to read. She will retrun to the clinic for final decision. Will start evaluation with cystoscopy and UDS Will consider sacrospinous ligament fixation vs robotic hysterectomy with SCP At this conclusion of this encounter all of the patient's (and family) questions were answered to their satisfaction, they were encouraged to contact our office at any time if there were any further questions or issues, and we will follow up as described above. John Ochoa MD documented in this encounter Plan of Treatment Date Type Specialty Care Team Description 01/31/2020 Office Visit Urology John Ochoa M D [address] [facility] [address] [place], [place] [id number] Room, Malachi Uro Procedure 06/10/2020 Office Visit Family Medicine Estrada Wang MD [address] [place] [phone] Health Maintenance Due Date Last [...] filedocumented in this encounter Visit Diagnoses Diagnosis Urgency of urination - Primary Pelvic organ prolapse quantification sta ge 4 cystocele documented in this encounter Insurance Payer Benefit Plan / Subscriber ID Effective Phone Address T ype Group Dates [facility] [id number] 2019-Antony Hess HEALTHCARE - MEDICARE HMO MANAGED MEDICARE ADVANTAGE (Work) documented as of this encounter
--- OUTSIDE RECORDS SUMMARY | 2020-03-18 05:45 | XMS REPORT | Summary of Care ---
:1955 Author Organization [facility] Address [address] [place] [address] Care Team Providers Name Role Phone Molly Wang MD Primary Care Provider MD Capo Unavailable Sitter Unavailable Davis Dukes MD Unavailable Keith Naqvi Unavailable Reason for Visit Reason Comments Procedure cysto/UDS (Routine) Status Reason Specialty Diagnoses / Referred By Referred To Procedures Contact Contact Authorized URO-UROLOGY / Diagnoses Urge incontinence of urine Aleksander Wang Laith, Urology Procedures CONSULT/REFERRAL UROLOGY Doug Barnes MD MD [address] [facility] [phone] Phone: Fax: Fax: Encounter Details Date Type Department Care Team Description 01/15/2020 Office Visit [facility] Urology- Adriel Ochoa MD [address] [facility] [address] [place] [address] Urgency of urination [facility] Uro Procedure (Primary Dx) [address] [place] [phone] Allergies Active Allergy Reactions Severity Noted Date Comments Penicillin Rash, Shortness of Breath 02/02/2017 documented as of this encounter (statuses as of 01/15/2020) Medications Medication Sig Dispensed Refills Start Date [...] as of this encounter (statuses as of 01/15/2020) Active Problems Problem Noted Date Morbid obesity [...] Added automatically from request for laura whitehead [id number] Diabetes mellitus type 2, controlled, without complica tions 02/04/2017 Essential hypertension 02/04/2017 GERD (gastroesophageal reflux disease) 02/04/2017 documented as of this encounter (statuses as of 01/15/2020) Immunizations Name Administration Dates Next Due Pneumococcal [...] been in contact with No / Unsure 01/15/2020 8:24 AM CDT someone who was confirmed or suspected to have Coronavirus / COVID-19? documented as of this encounter Last Filed Vital Signs Vital Sign Reading Time Taken Comments Blood Pressure - - Pulse - - Temperature - - Respiratory Rate - - Oxygen Saturation - - Inhaled Oxygen Concentration - - Weight - - Height 167.6 cm (5' 6") 01/15/2020 8:30 AM CDT Body Mass Index - - documented in this encounter Progress Notes Beverly Rangel LVN - 01/15/2020 8:30 AM CDTVital signs deferred per physician. John Lyles MD - 01/15/2020 8:30 AM CDTPatient has been identified by name and date of and will be undergoing a CMG and cystoscopy with the site being confirmed as the bladder. Procedure has been discussed and consent has been obtained by Dr. Ochoa. Timeout performed by Lula Mathias at 0836 AM. Uroflow was performed then sterile straight cath was done to obtain 0ml residual. #7 Fr t-doc catheters were then placed in the bladder and the rectum. EMG leads were then correctly placed on either side of the rectum. All leads a nd catheters were then taped down and catheters were charged. Pt instructed to cough for correct placement. CMG was started and sterile water was infused at a rate of 50 ml per minute. continues procedure. Intraabdominal and voiding pressures were recorded and documented in computer during study. Pt voided at end of study. Pt tolerated procedure well. UDS done 0915 AM Informed consent obtained and signed. Patient has been identified by Name and and will be undergoing a cystoscopy. Patient and procedure have been confirmed by the following clinicians: Timeout performed by Lula Mathias MA at 0836 AM. Placed on table in lying supine position. Prepped with betadine,10 ml 2% lidocaine jelly injected into urethra and draped in sterile fashion. Entire procedure chaperoned by Lula Mathias MA Patient provided with preferred teaching of verbal information on cysto and uds. Shows readiness to learn. Verbal instruction teaching provided. Individual is able to read and verbalizes understanding of teaching provided. Patient tolerated procedure well , left clinic via ambulatory. Cysto done 934 am John Lyles MD - 01/15/2020 8:30 AM Gonzalo Ochoa MD Cast Associate of Urology Ambulatory Procedure Note Visit Date: 01/15/2020 Referring Physician/PCP: Doug Wang MD, Doug Wang Procedure Performed: Flexible Cystourethroscopy History of Present Illness: Nanci Barros is a 64 year old female with a history of the above issues, who presents for follow up for UUI. Physical Examination: Vital Signs: Ht 5' 6" (1.676 m) | BMI 41.32 kg/m General: Awake, alert, well nourished, appears to be approximate age Abdomen: Soft, nontender, and nondistended : Normal external female genitalia. Normal appearing urethral meatus. Extremities: no clubbing, cyanosis, or edema Description of procedure in Detail: Before beginning the procedure the patient was explained in full how the procedure was to be done, the indications for this exam. Risks including bleeding, infection, and damage to nearby structures, including the bladder and urethra, were all explained to the patient. All questions were answered tothe satisfaction of the patient. The patient understands and wishes to proceed. The consent was signed and a timekeeper supervisor-out, confirming correct patient/procedure/diagnosis/allergies was completed beforestarting the procedure. A female heel buffer was present for the entirety of the exam and procedure. Local Anesthetic: Lidocaine Jelly 2%, 5ml Intraurethrally Prophylactic antibiotic: none Urine sample taken: none Patient was placed in modified lithotomy position on procedure table, and prepped and draped in usual sterile fashion. Local anesthetic was given as described above. Normal appearing meatus was entered with flexible cystoscope. Normal anatomy of the anterior urethra. Upon entering the bladder I noted no evidence of tumor, stone, or significant debris, and this was confirmed with full systematic review of all area of the bladder. Both ureteral orifices were identified and noted to be normal, orthotopic, and effluxing clear yellow urine. No abnormality was noted on retroflexion, and the bladder neck and posterior urethra was thoroughly examined upon exiting the bladder, with no abnormality noted within the posterior urethra. Patient tolerated the procedure well, and was instructed to void immediately following. Impression on cystourethroscopy: Normal bladder and urethral anatomy. . John Lyles MD - 01/15/2020 8:30 AM CDTPATIENT: Nanci Barros : 1955 DATE OF SERVICE: 01/15/20 Pre-Procedural Diagnosis: UUI Post-Procedural Diagnosis: sensory urgency, otherwise normal study Procedure: Multichannel urodynamics Procedures Performed: 1. Complex uroflowmetry (92724) 2. Complex cystometrogram without measurement of urethral pressure and bladder voiding/flow pressure(22597) 3. EMG with patch measurement (16340) 4. Abdominal pressure measurement (26183) Attending Physician: John Ochoa MD INDICATIONS: This is a 64 year old female [...] She deneis a history of a hysterectomy. We recommended that the patient undergo urodynamics further workup. A urine culture was noted to be negative prior to procedure. DESCRIPTION OF PROCEDURE IN DETAIL: A multichannel videourodynamics was performed in the sitting position. The patient was initially catheterized for 0 mL of residual urine. A vaginal catheter was placed for intraabdominal pressure measurements. A separate 7- [place] dual-lumen catheter was placed in the bladder. Catheters were zeroed and filling was begun with Cysto-Conray at 30mL/min. Free Flow: 20 ml/s PVR 0 FILLING: Filling phase of the study revealed a compliant bladder. First sensation was noted at 100 mL. First urge was noted at 200 mL. Strong urge was noted at 400 mL. No MELLO No DO. The patient tolerated filling to a capacity of 500 mL. EMG was performed using surface perineal electrodes. EMG initially showed normal signals. There was no activity of the EMG during filling. During voiding there was electrical normal. The EMG study was technically normal VOIDING: At a capacity of 500mL, the patient was allowed to void. The patient was able to void in the sitting position with the catheter in place. Maximum detrusor pressure was 20 cm H20. This correlated with a peak flow of 15 mL/sec. Abdominal straining was not necessary for emptying. Post-void residual was 0 mL. The patient tolerated the procedure well and the catheters were removed without difficulty. ASSESSMENT AND PLAN: Nanci Barros is a 64 year old female with a history of POP and urgency and urgency UI. Urodynamics today showed normal compliant, exaggerated bladder sensation, no DO, negatove stress test, normal voiding phase. Sensory urgency She had uterovaginal prolapse stage III which most likely gives her urgency and pelvic pressure. Consider surgery if the patient agreed. Sacrospinous fixation John Ochoa MD Maintenance Manager Clinical Professor Female Urology, Voiding dysfunction and Pelvic reconstruction Surgery documented in this encounter Plan of Treatment Date Type Specialty Care Team Description 01/31/2020 Office Visit Urology John Ocoha M D [address] [facility] [address] [place] [address] [phone] 06/10/2020 Office Visit Family Medicine Estrada Wang MD [address] [place] [phone] Health Maintenance Due Date Last [...] 12/05/2019, 07/25/2017 FOOT EXAM 12/10/2020 12/11/2019, 05/23/2018 LDL-C 12/23/2020 12/24/2019, 10/03/2018, 02/02/2017 URINE MICROALBUMIN 12/23/2020 12/24/2019, 10/03/2018, 02/02/2017 Depression Screening 01/09/2021 01/10/2020 CREATININE (SERUM) 01/10/2021 01/11/2020, 12/24/2019, 02/15/2019, Additional history exists PAP SMEAR 08/17/2021 08/17/2018, 08/17/2018, 05/18/2012 COLONOSCOPY 03/03/2027 03/03/2017 Colorectal Cancer Screening 03/03/2027 HEPATITIS C (HCV) SCREEN Completed 11/16/2018 documented as of this encounter Goals Goal Patient Goal Associated Recent Patient-Stated? Author Type Problems Progress weight down General Yes [place], to 247 lbs Doug Barnes MD by October of 2017 documented as of this encounter Results Not on filedocumented in this encounter Visit Diagnoses Diagnosis Urgency of urination - Primary documented in this encounter Insurance Payer Benefit Plan / Subscriber ID Effective Phone Address T ype Group Dates [facility] [id number] 2019-Prese [employer] she[employer] Adv HEALTHCARE - MEDICARE nt HMO MANAGED MEDICARE ADVANTAGE Guarantor Name Account Type Relation to Date of Phone Billing Patient Address Nanci Barros Personal/Family Self 1955 [address] [place] (Home) [place] [phone] (Work) documented as of this encounter
--- OUTSIDE RECORDS SUMMARY | 2020-03-18 05:45 | XMS REPORT | Summary of Care ---
:1955 Author Organization [facility] Address [address] [place] [address] Care Team Providers Name Role Phone Molly [...] UROLOGY Doug Barnes MD MD [address] [place] [facility] [phone] Phone: Fax: Fax: Encounter Details Date Type Department Care Team Description 01/10/2020 Office Visit [facility] Urology- Adriel Ochoa MD Urgency of urination (Primary Dx); [address] Pelvic organ prolapse quanti fication stage 4 cystocele [address] [facility] [address] [place] [address] [phone] Allergies Active Allergy Reactions Severity Noted Date [...] Added automatically from request for laura whitehead [id number] Diabetes mellitus type 2, controlled, without complica [...] 01/10/2020 1:00 PM CDT John Ochoa MD Fruit Packer of Urology Female Urology, Voiding Dysfunction and Pelvic Reconstruction [facility] Division of Urology Referring Provider: Yayo Armijo MD [address] [place] [phone] Armijo, Thank you for your [...] N/A 03/03/2017 Surgeon: Humaira Monge MD; Location: [facility] OR Location ESOPHAGOGASTRODUODENOSCOPY Upper 11/22/2019 Surgeon: Tish Pickering MD; Location: [facility] OR Location LEG/ANKLE SURGERY PROC UNLISTED SHOULDER [...] file Gets together: Not on file Attends quaker service: Not on file Active member of [...] Visit Urology John Ochoa M D [address] [facility] [address] [place], [place] [id number] Room, Malachi Uro Procedure 06/10/2020 Office Visit Family Medicine Estrada Wang MD [address] [place] [phone] Health Maintenance Due Date Last [...] Effective Phone Address T ype Group Dates [facility] [id number] 2019-Antony Hess HEALTHCARE - MEDICARE HMO MANAGED MEDICARE ADVANTAGE (Work) documented as of this encounter
--- OUTSIDE RECORDS SUMMARY | 2020-03-18 05:46 | XMS REPORT | Summary of Care ---
:1955 Author Organization [facility] Address [address] [place] [address] Care Team Providers Name Role Phone Molly [...] UROLOGY Doug Barnes MD MD [address] [facility] [phone] Phone: Fax: Fax: Encounter Details Date Type Department Care Team Description 01/15/2020 Office Visit [facility] Urology- Adriel Ochoa MD [address] [facility] [address] [place] [address] [address] [facility] Uro Procedure (Primary Dx) [address] [place] [phone] Allergies Active Allergy Reactions Severity Noted Date [...] Added automatically from request for laura whitehead [id number] Diabetes mellitus type 2, controlled, without complica [...] - 01/15/2020 8:30 AM Gonzalo Ochoa MD Video Tape Editor of Urology Ambulatory Procedure Note Visit Date: [...] proceed. The consent was signed and a environmental engineering intern-out, confirming correct patient/procedure/diagnosis/allergies was completed beforestarting the procedure. A female stone lathe operator was present for the entirety of the [...] MD - 01/15/2020 8:30 AM CDTPATIENT: Nanci Barors : 1955 DATE OF SERVICE: 01/15/20 Pre-Procedural Diagnosis: UUI Post-Procedural Diagnosis: sensory urgency, otherwise normal study Procedure: Multichannel urodynamics Procedures Performed: 1. Complex uroflowmetry (84316) 2. Complex cystometrogram without measurement of urethral pressure and bladder voiding/flow pressure(87997) 3. EMG with patch measurement (46783) 4. Abdominal pressure measurement (59714) Attending Physician: John Ochoa MD INDICATIONS: This [...] for intraabdominal pressure measurements. A separate 7- Czech dual-lumen catheter was placed in the bladder. [...] patient agreed. Sacrospinous fixation John Ochoa MD Bartender Clinical Professor Female Urology, Voiding dysfunction and Pelvic reconstruction Surgery documented in this encounter Plan of Treatment Date Type Specialty Care Team Description 01/31/2020 Office Visit Urology John Ochoa M D 22[address] [facility] [address] [place] [address] [phone] 06/10/2020 Office Visit Family Medicine Estrada Wang MD [address] [place] [address] [phone] Health Maintenance Due Date Last [...] Type Problems Progress weight down General Yes [place], to 247 lbs Doug Barnes MD by October of 2017 documented as of this encounter Results Not on filedocumented in this encounter Visit Diagnoses Diagnosis Urgency of urination - Primary documented in this encounter Insurance Payer Benefit Plan / Subscriber ID Effective Phone Address T ype Group Dates [facility] [id number] 2019-Prese Me sheikh Adv HEALTHCARE - MEDICARE nt HMO MANAGED MEDICARE ADVANTAGE Guarantor Name Account Type Relation to Date of Phone Billing Patient Address Nanci Barros Personal/Family Self 1955 [address] [place] (Home) [place] [phone] (Work) documented as of this encounter
--- OUTSIDE RECORDS SUMMARY | 2020-03-18 05:46 | XMS REPORT | Summary of Care ---
:1955 Author Organization [facility] Address [address] [place] [address] Care Team Providers Name Role Phone Molly [...] UROLOGY Doug Barnes MD MD [address] [facility] [phone] Phone: Fax: Fax: Encounter Details Date Type Department Care Team Description 01/15/2020 Office Visit [facility] Urology- Adriel Ochoa MD [address] [facility] [address] [place] [address] Urgency of urination [facility] Uro Procedure (Primary Dx) [address] [place] [phone] Allergies Active Allergy Reactions Severity Noted Date [...] Added automatically from request for laura whitehead [id number] Diabetes mellitus type 2, controlled, without complica [...] - 01/15/2020 8:30 AM Gonzalo Ochoa MD Event Lighting Specialist of Urology Ambulatory Procedure Note Visit Date: [...] proceed. The consent was signed and a horse race timer-out, confirming correct patient/procedure/diagnosis/allergies was completed beforestarting the procedure. A female clinical research scientist was present for the entirety of the [...] Multichannel urodynamics Procedures Performed: 1. Complex uroflowmetry (66633) 2. Complex cystometrogram without measurement of urethral pressure and bladder voiding/flow pressure(83337) 3. EMG with patch measurement (88457) 4. Abdominal pressure measurement (24543) Attending Physician: John Ochoa MD INDICATIONS: This [...] for intraabdominal pressure measurements. A separate 7- Citizen Of [place] dual-lumen catheter was placed in the bladder. [...] patient agreed. Sacrospinous fixation John Ochoa MD Patch Sander Clinical Professor Female Urology, Voiding dysfunction and Pelvic reconstruction Surgery documented in this encounter Plan of Treatment Date Type Specialty Care Team Description 01/31/2020 Office Visit Urology John Ochoa M D [address] [facility] [address] [place] [address] [phone] 06/10/2020 Office Visit Family Medicine Estrada Wang MD [address] [place] [address] [phone] Health Maintenance Due Date Last [...] Type Problems Progress weight down General Yes [place], to 247 lbs Doug Barnes MD by October of 2017 documented as of this encounter Results Not on filedocumented in this encounter Visit Diagnoses Diagnosis Urgency of urination - Primary documented in this encounter Insurance Payer Benefit Plan / Subscriber ID Effective Phone Address T ype Group Dates [facility] [id number] 2019-Prese Me sheikh Adv HEALTHCARE - MEDICARE nt HMO MANAGED MEDICARE ADVANTAGE Guarantor Name Account Type Relation to Date of Phone Billing Patient Address Nanci Barros Personal/Family Self 1955 [address] [place] (Home) [place] [phone] (Work) documented as of this encounter
--- OUTSIDE RECORDS SUMMARY | 2020-03-18 05:46 | XMS REPORT | Summary of Care ---
:1955 Author Organization [facility] Address [address] [place] [address] Care Team Providers Name Role Phone Molly [...] UROLOGY Doug Barnes MD MD [address] [facility] [phone] Phone: Fax: Fax: Encounter Details Date Type Department Care Team Description 01/15/2020 Office Visit [facility] Urology- Adriel Ochoa MD [address] [facility] [address] [place] [address] Urgency of urination [facility] Uro Procedure (Primary Dx) [address] [place] [phone] Allergies Active Allergy Reactions Severity Noted Date [...] Added automatically from request for laura whitehead [id number] Diabetes mellitus type 2, controlled, without complica [...] - documented in this encounter Progress Notes Lula Gonzalez MA - 01/15/2020 8:30 AM CDTPatient has been [...] rate of 50 ml per minute. continues procedure Intraabdominal and voiding pressures were recorded and documented in computer during study. Pt voided at end of study. Pt tolerated procedure well. Informed consent obtained and signed. Patient has [...] understanding of teaching provided. Patient tolerated procedure well, left clinic via ambulatory. Beverly Shah LVN - 01/15/2020 8:30 AM CDTVital signs deferred per physician. John Llyes MD - 01/15/2020 8:30 AM CDTPatient has [...] - 01/15/2020 8:30 AM Gonzalo Ochoa MD Mechanical Engineering Lecturer of Urology Ambulatory Procedure Note Visit Date: [...] proceed. The consent was signed and a reliability technicians-out, confirming correct patient/procedure/diagnosis/allergies was completed beforestarting the procedure. A female guest relations coordinator was present for the entirety of the [...] Multichannel urodynamics Procedures Performed: 1. Complex uroflowmetry (28112) 2. Complex cystometrogram without measurement of urethral pressure and bladder voiding/flow pressure(58047) 3. EMG with patch measurement (35049) 4. Abdominal pressure measurement (30491) Attending Physician: John Ochoa MD INDICATIONS: This [...] pressure measurements. A separate 7- Citizen Of [place] dual-lumen catheter was placed in the bladder. [...] patient agreed. Sacrospinous fixation John Ochoa MD Flume Maker Clinical Professor Female Urology, Voiding dysfunction and Pelvic reconstruction Surgery documented in this encounter Plan of Treatment Date Type Specialty Care Team Description 01/31/2020 Office Visit Urology John Ochoa M D 2280 [facility] 2.[address] [place], [place] [phone] 06/10/2020 Office Visit Family Medicine Estrada Wang MD [address] [place] [address] [phone] Health Maintenance Due Date Last [...] / Subscriber ID Effective Phone Address T e Group [facility] [id number] 2019-Antony sheikh Adv HEALTHCARE - MEDICARE nt HMO MANAGED MEDICARE ADVANTAGE (Work) documented as of this encounter
--- OUTSIDE RECORDS SUMMARY | 2020-03-18 05:47 | XMS REPORT | Summary of Care ---
:1955 Author Organization [facility] Address [address] [place] [address] Care Team Providers Name Role Phone Molly Wang MD Primary Care Provider MD Capo Unavailable Sitter Unavailable Davis Dukes MD Unavailable Keith Naqvi Unavailable Reason for Visit Reason Comments Medication Dose Change Orders Encounter Details Date Type Department Care Team Description 01/18/2020 Case Management [facility] Doug Wang Medicat ion Dose Pediatric and Adult MD Molly Change; Orders Primary Care- [address], [address] [place] [address] Allergies Active Allergy Reactions Severity Noted Date Comments Penicillin Rash, Shortness of Breath 02/02/2017 documented as of this encounter (statuses as of 01/18/2020) Medications Medication Sig Dispensed Refills Start Date [...] per (two) times tabletIndications: daily. Abscess, axilla telmisartan-hydrochlo Take 0.5 90 tablet 3 01/18/2020 Active rothiazide 40-12.5 mg tablets by per mouth daily. tabletIndications: Essential hypertension TELMISARTAN-HYDROCHLO TAKE 1 TABLET 90 tablet 3 12/24/2019 Discontinued ROTHIAZIDE 40-12.5 mg BY MOUTH 20 per DAILY tabletIndications: Essential hypertension documented as of this encounter (statuses as of 01/18/2020) Active Problems Problem Noted Date Morbid obesity [...] Added automatically from request for laura whitehead [id number] Diabetes mellitus type 2, controlled, without complica tions 02/04/2017 Essential hypertension 02/04/2017 GERD (gastroesophageal reflux disease) 02/04/2017 documented as of this encounter (statuses as of 01/18/2020) Immunizations Name Administration Dates Next Due Pneumococcal [...] Visit Urology John Ochoa M D 22[address] [facility] [address] [place] [address] [phone] 06/10/2020 Office Visit Family Medicine Estrada Wang MD [address] [place] [address] [phone] Name Type Priority Associated Diagnoses Order S chedule BASIC METABOLIC PANEL LAB Routine Renal dysf unction 1 Occurrences starting (NA, K, CL, CO2, Hyperkalemia 01/18/2020 until GLUCOSE, BUN, Essential hypert ension 04/18/2020 CREATININE, CA) Medication monitoring encounter Health Maintenance Due Date Last Done Comments [...] of kidney and urete r Hyperkalemia Hyperpotassemia Essential hypertension Unspecified essential hypertension Medication monitoring encounter Encounter for therapeutic drug monitorin g documented in this encounter Insurance Payer Benefit Plan / Subscriber ID Effective Phone Address T e Group Dates [facility] [id number] 2019-Antony Hess HEALTHCARE - MEDICARE nt HMO MANAGED MEDICARE ADVANTAGE documented as of this encounter
--- OUTSIDE RECORDS SUMMARY | 2020-03-18 05:47 | XMS REPORT | Summary of Care ---
:1955 Author Organization [facility] Address [address] [place] [address] Care Team Providers Name Role Phone Molly Wang MD Primary Care Provider MD Capo Unavailable Sitter Unavailable Davis Dukes MD Unavailable Keith Naqvi Unavailable Encounter Details Date Type Department Care Team Description 01/15/2020 Orders Only [facility] Doctor Unassigned, No [address] [facility] [place] [address] [address] [place] [address] Allergies Active Allergy Reactions Severity Noted Date Comments Penicillin Rash, Shortness of Breath 02/02/2017 documented as of this encounter (statuses as of 01/23/2020) Medications Medication Sig Dispensed Refills Start Date [...] as of this encounter (statuses as of 01/23/2020) Active Problems Problem Noted Date Morbid obesity [...] Added automatically from request for laura whitehead [id number] Diabetes mellitus type 2, controlled, without complica tions 02/04/2017 Essential hypertension 02/04/2017 GERD (gastroesophageal reflux disease) 02/04/2017 documented as of this encounter (statuses as of 01/23/2020) Immunizations Name Administration Dates Next Due Pneumococcal [...] Visit Urology John Ochoa M D 22[address] [facility] [address] [place], [place] [address] 06/10/2020 Office Visit Family Medicine Estrada Wang MD [address] [place] [address] [phone] Health Maintenance Due Date Last Done [...] Type Problems Progress weight down General Yes [place], to 247 lbs Doug Barnes MD by October of 2017 documented as of this encounter Procedures Procedure Name Priority Date/Time Associated Diagnosis Comme nts DISCLOSURE AND CONSENT, Routine 01/15/2020 12:01 AM MEDICAL AND SURGICAL CDT PROCEDURES documented in this encounter Results Not on filedocumented in this encounter Insurance Payer Benefit Plan / Subscriber ID Effective Phone Address T ype Group Dates [facility] [id number] 2019-Antony sheikh [facility] - MEDICARE nt HMO MANAGED MEDICARE ADVANTAGE documented as of this encounter
--- OUTSIDE RECORDS SUMMARY | 2020-03-18 05:47 | XMS REPORT | Summary of Care ---
:1955 Author Organization [facility] Address [address] [place] [address] Care Team Providers Name Role Phone Molly Wang MD Primary Care Provider MD Capo Unavailable Sitter Unavailable Davis Dukes MD Unavailable Keith Naqvi Unavailable Reason for Visit Reason Comments Urgency FREQUENCY (Routine) Status Reason Specialty Diagnoses / Referred By Referred To Procedures Contact Contact New Request URO-UROLOGY / Diagnoses Urge incontinence of urine Aleksander Wang [place], Urology Procedures CONSULT/REFERRAL UROLOGY Doug Barnes MD MD [address] [place] [phone] Phone: Fax: Encounter Details Date Type Department Care Team Description 12/31/2019 Office Visit [facility] Urology- Ольга Armijo MD Urgency of urination [address] (Primary Dx) [address] [place] [address] [address] [address] [place] [address] Allergies Active Allergy Reactions Severity [...] Added automatically from request for laura whitehead [id number] Diabetes mellitus type 2, controlled, without complica [...] VND) No previous cystoscopy, UDS or uro coat tailor procedure Histories Past Medical History: Diagnosis Date Abnormal EKG 06/03/2017 LASHAY (acute kidney injury) 10/29/2018 ASCUS of cervix with negative high risk HPV 08/31/2018 Diabetes mellitus Esophageal reflux Essential hypertension 02/04/2017 Fatty liver 02/19/2019 Fatty liver 02/19/2019 History of diverticulitis Other urinary incontinence 01/19/2018 Pancytopenia 10/16/2018 Pancytopenia 10/16/2018 Past Surgical History: Procedure Laterality Date CHOLECYSTECTOMY COLONOSCOPY N/A 03/03/2017 Surgeon: Humaira Monge MD; Location: [facility] OR [facility] ESOPHAGOGASTRODUODENOSCOPY Upper 11/22/2019 Surgeon: Tish Pickering MD; Location: [facility] OR [facility] LEG/ANKLE SURGERY PROC UNLISTED SHOULDER ARTHROSCOPY Right [...] file Gets together: Not on file Attends uatsdin service: Not on file Active member of [...] to provider. Ida Bradley 12/31/2019 2:39 PM aSndee Maciel LVN - 12/31/2019 2:15 PM CDTPt is here today with c/o of urinary leakage, frequency, urgency. Pain 0/10. Travel, Fall Risk, Medication and allergies reviewed. Sandee Cervantes LVN documented in this encounter Miscellaneous Notes Result QuickNote - Yayo Armijo MD - 12/31/2019 2:15 PM CDTNo UTI documented in this encounter Plan of Treatment Date Type Specialty Care Team Description 01/31/2020 Office Visit Urology John Ochoa M D 22[address] [facility] [address] [place] [address] [phone] 06/10/2020 Office Visit Family Medicine Estrada Wang MD [address] [place], [place] [address] 15-4112 [phone] Health Maintenance Due Date Last Done Comments [...] Type Problems Progress weight down General Yes [place], to 247 lbs Doug Barnes MD by October of 2017 documented as of this encounter Procedures Procedure Name Priority Date/Time Associated Comments Diagnosis URINE CULTURE Routine 12/31/2019 2:35 PM Urgency of Results for this CDT urination procedure are i n the results section. POCT URINALYSIS AUTO Routine 12/31/2019 2:27 PM Urgency of Results for this CDT urination procedure are i n the results section. documented in this encounter Results URINE CULTURE (12/31/2019 2:35 PM CDT) URINE CULTURE 10,000 - 100,000 [facility] CFU/mL mixed aerobic SERVICES organisms - suggests endogenous microbial contamination Specimen Urine - URINE, CLEAN CATCH Performing Organization Address City/State/Zipcode Phone Number [facility] CLIA: [id number] [place] [address] [place] [address] POCT URINALYSIS, INSTRUMENT (12/31/2019 2:27 PM CDT) [...] Effective Phone Address T ype Group Dates [facility] [id number] 2019- [facility] HEALTHCARE - MEDICARE 020 HMO MANAGED MEDICARE ADVANTAGE [phone] (Work) documented as of this encounter
--- OUTSIDE RECORDS SUMMARY | 2020-03-18 05:48 | XMS REPORT | Summary of Care ---
:1955 Author Organization [facility] Address [address] [place] [address] Care Team Providers Name Role Phone Molly Wang MD Primary Care Provider MD Capo Unavailable Sitter Unavailable Davis Dukes MD Unavailable Keith Naqvi Unavailable Reason for Visit Reason Comments Erroneous encounter-disregard Encounter Details Date Type Department Care Team Description 01/25/2020 Telephone [facility] Family Doug Wang E rroneous Medicine - Leander AYERS encounter-disregard [address] [place] [address] [place] [phone] Allergies Active Allergy Reactions Severity Noted Date Comments Penicillin Rash, Shortness of Breath 02/02/2017 documented as of this encounter (statuses as of 01/25/2020) Medications Medication Sig Dispensed Refills Start Date [...] 2 (two) tabletIndications: times daily. Abscess, axilla telmisartan-hydrochloro Take 0.5 tablets 90 tablet 3 0 Active thiazide 40-12.5 mg per by mouth daily. tabletIndications: Essential hypertension documented as of this encounter (statuses as of 01/25/2020) Active Problems Problem Noted Date Morbid obesity [...] Added automatically from request for laura whitehead [id number] Diabetes mellitus type 2, controlled, without complica tions 02/04/2017 Essential hypertension 02/04/2017 GERD (gastroesophageal reflux disease) 02/04/2017 documented as of this encounter (statuses as of 01/25/2020) Immunizations Name Administration Dates Next Due Pneumococcal [...] 2280 [facility] 2.[address] [place], [place] [phone] 06/10/2020 Office Visit Family Medicine Estrada Wang MD [address] [place] [phone] Health Maintenance Due Date Last [...] Phone Address T ype Group Dates [facility] [id number] 2019-Antony Hess HEALTHCARE - MEDICARE nt HMO MANAGED MEDICARE ADVANTAGE documented as of this encounter
--- OUTSIDE RECORDS SUMMARY | 2020-03-18 05:48 | XMS REPORT | Summary of Care ---
:1955 Author Organization [facility] Address [address] [place] [address] Care Team Providers Name Role Phone Molly Wang MD Primary Care Provider MD Capo Unavailable Sitter Unavailable Davis Dukes MD Unavailable Keith Naqvi Unavailable Reason for Visit Reason Comments Pre-Op Exam (Routine) Status Reason Specialty Diagnoses / Referred By Referred To Procedures Contact Contact Authorized URO-UROLOGY / Diagnoses Urge incontinence of urine Aleksander Wang Laith, Urology Procedures CONSULT/REFERRAL UROLOGY Doug Barnes MD MD [address] [facility] [phone] Phone: Fax: Fax: Encounter Details Date Type Department Care Team Description 01/31/2020 Office Visit [facility] Urology- Adriel Ochoa MD Uterovaginal prolapse, [place] [address] [facility] Er incomplete (Primary [id number] [address]) [address] [place] [address] [phone] Allergies Active Allergy Reactions Severity Noted Date Comments Penicillin Rash, Shortness of Breath 02/02/2017 documented as of this encounter (statuses as of 01/31/2020) Medications Medication Sig Dispensed Refills Start Date [...] of insulin mirabegron (MYRBETRIQ) Take 1 tablet 30 tablet 0 03/01/2019 Active 25 mg by mouth daily. tabletIndications: Urinary frequency, Urge incontinence clobetasoL 0.05 % Apply to 60 g 1 06/07/2019 A ctive ointmentIndications: area(s) 2 (two) Lichen simplex times daily. chronicus OMEPRAZOLE 40 mg TAKE 1 CAPSULE 90 capsule 1 07/09/2019 Active capsuleIndications: BY MOUTH DAILY Gastroesophageal reflux disease, esophagitis presence not specified metformin ER 500 mg 24 Take 1 tablet 90 tablet 2 11/07/2019 Active hr tabletIndications: by mouth daily Controlled type 2 with breakfast. diabetes mellitus without complication, without long-term current use of insulin pantoprazole 20 mg EC Take 20 mg by 0 Active tablet mouth daily. amLODIPine 2.5 mg Take 1 tablet 90 tablet 1 12/11/2019 Active tabletIndications: by mouth at Essential hypertension, bedtime. DOSE History of hypotension DECREASE. sulfamethoxazole-trimet Take 1 tablet 20 tablet 0 12/11/2019 Active hoprim 800-160 mg per by mouth 2 tabletIndications: (two) times Abscess, axilla daily. telmisartan-hydrochloro Take 0.5 90 tablet 3 01/18/2020 Active thiazide 40-12.5 mg per tablets by tabletIndications: mouth daily. Essential hypertension clindamycin 300 mg Take 1 capsule 28 capsule 0 01/25/202001/21 Active capsuleIndications: by mouth 4 Pustule (four) times daily for 7 days. ibuprofen 800 mg tablet Take 800 mg by 0 01/25/2020 02/20/2020 Active mouth as needed. documented as of this encounter (statuses as of 01/31/2020) Active Problems Problem Noted Date Uterovaginal prolapse, incomplete 01/31/2020 Overview: Added automatically from request for [place]ura [place] [id number] Morbid obesity with body mass index of [...] Added automatically from request for [place]ura [place]ura [id number] Diabetes mellitus type 2, controlled, without complica tions 02/04/2017 Essential hypertension 02/04/2017 GERD (gastroesophageal reflux disease) 02/04/2017 documented as of this encounter (statuses as of 01/31/2020) Immunizations Name Administration Dates Next Due Pneumococcal [...] been in contact with No / Unsure 01/31/2020 8:08 AM CDT someone who was confirmed or suspected to have Coronavirus / COVID-19? documented as of this encounter Last Filed Vital Signs Vital Sign Reading Time Taken Comments Blood Pressure 124/72 01/31/2020 8:17 AM CDT Pulse 80 01/31/2020 8:17 AM CDT Temperature - - Respiratory Rate 20 01/31/2020 8:17 AM CDT Oxygen Saturation - - Inhaled Oxygen Concentration - - Weight 119.3 kg (262 lb 14.4 oz) 01/31/2020 8:17 AM CDT Height 167.6 cm (5' 6") 01/31/2020 8:17 AM CDT Body Mass Index 42.43 01/31/2020 8:17 AM CDT documented in this encounter Progress Notes John Ochoa MD - 01/31/2020 8:30 AM CDT John Ochoa MD Aircraft Restorer of Urology Female Urology, Voiding Dysfunction and Pelvic Reconstruction [facility] Division of Urology Referring Provider: Yayo Armijo MD [address] [place] [phone] Wang, Thank you for your referral of Mrs [...] John Ochoa MD REASON FOR REFERRAL/CHIEF COMPLAINT: POP Urinary incontinence Urgency and increased urinary frequency [...] She deneis a history of a hysterectomy. Urodynamics showed normal compliant, exaggerated bladder sensation, no DO, negatove stress test, normal voiding phase. Cystoscopy was normal. The patient have been complaining from pelvic pressure especially at the end of the day or long standing. She is her for preop for POP. PAST MEDICAL HISTORY: Past Medical History: Diagnosis [...] N/A 03/03/2017 Surgeon: Humaira Monge MD; Location: [facility] OR Location ESOPHAGOGASTRODUODENOSCOPY Upper 11/22/2019 Surgeon: Tish Pickering MD; Location: [facility] OR Location LEG/ANKLE SURGERY PROC UNLISTED SHOULDER ARTHROSCOPY Right SURGICAL HISTORY OTHER (SHX) Right leg surgery MEDICATIONS: Current Outpatient Medications: ibuprofen 800 mg tablet, Take 800 mg by mouth as needed., Disp: , Rfl: clindamycin 300 mg capsule, Take 1 capsule by mouth 4 (four) times daily for 7 days., Disp: 28 capsule, Rfl: 0 telmisartan-hydrochlorothiazide 40-12.5 mg per tablet, Take 0.5 tablets by mouth daily., Disp: 90 tablet, Rfl: 3 amLODIPine 2.5 [...] file Gets together: Not on file Attends mu-ism service: Not on file Active member of [...] moles or other lesions. PHYSICAL EXAMINATION: BP 124/72 | Pulse 80 | Resp 20 | Ht 5' 6" (1.676 m) | Wt 262 lb 14.4 oz (119.3 kg) | BMI 42.43 kg/m General: Well Developed. No apparent distress. [...] is no leakage with coughing. LABS: Reviewed ASSESSMENT AND PLAN: The patient is a [...] retrun to the clinic for final decision. I have reviewed the finding of the UDS and cystoscopy, I have reviewed the different approach of thePOP and the patient had read the different available options including robotic SCP vs pessary vs SSLF. The patient likes to proceed with the sacrospinous lig fixation, possible cystocele, rectocele repair, cystoscopy. The risks, benefits, and alternatives of treatment were discussed in full with the patient, including, but not limited to bleeding (possibly requiring blood transfusion with the attendant risk of transfusion reaction or rarely of infection); infection possibly requiring additional hospital stay, IV ant ibiotics, readmission or re-intervention; surgical damage to surrounding organs, including bowel, bladder, nerves, vessels, urethra or ureters requiring additional intervention; medical complications including DVT, PE, HI, CVA and ; voiding dysfunction requiring indwelling or intermittent catheterization or if indicated. We have reviewed the typical perioperative course with hospital stay, and post- operative precautionsand restrictions have been reviewed. She understands her non-surgical alternative options, and has declined them. She will proceed with stated procedure. At this conclusion of this encounter all of the patient's (and family) questions were answered to their satisfaction, they were encouraged to contact our office at any time if there were any further questions or issues, and we will follow up as described above. John Ochoa MD documented in this encounter Plan of Treatment Date Type Specialty Care Team Description 01/31/2020 Motion Graphics Artist Visit Phlebotomy John Ochoa MD [address] [facility] [address] [place] [address] [phone] Arrived Lab, [facility] 02/15/2020 Hospital Encounter Surgery John Ochoa MD Uterovaginal prolapse, [address] [facility] [address] [place] [address] 02/15/2020 Surgery Surgery John Ochoa M D VAGINAL RECONSTRUCTION [address] [facility] [address] [place] [address] [phone] 06/10/2020 Office Visit Family Medicine Doug Wang MD [address] [place] [phone] Name Type Priority Associated Diagnoses Order S chedule URINE CULTURE LAB Routine Uterovaginal prolapse, Expe cted: 01/31/2020, incomplete Expires: 2020 Health Maintenance Due Date Last Done Comments [...] Type Problems Progress weight down General Yes [place], to 247 lbs Doug Barnes MD by October of 2017 documented as of this encounter Results Not on filedocumented in this encounter Visit Diagnoses Diagnosis Uterovaginal prolapse, incomplete - Prim cadence Uterovaginal prolapse, incomplete - Prim cadence Uterovaginal prolapse, incomplete documented in this encounter Insurance Payer Benefit Plan / Subscriber ID Effective Dates Phone Addre ss Type Group [facility] [id number] 2020-Present [facility] (Work) documented as of this encounter
--- OUTSIDE RECORDS SUMMARY | 2020-03-18 05:48 | XMS REPORT | Summary of Care ---
:1955 Author Organization [facility] Address [address] [place] [address] Care Team Providers Name Role Phone Molly Wang MD Primary Care Provider MD Capo Unavailable Sitter Unavailable Davis Dukes MD Unavailable Keith Naqvi Unavailable Reason for Visit Reason Comments Ear Pain right intermittent sharp rubina n x 01/24/2020 Headache right sided above ear, inter mittent sharp pain x 01/24/2020, Tylenol @ 0800 with some relief per pt Encounter Details Date Type Department Care Team Description 01/25/2020 Urgent Care [facility] Family Elliott Reyna, CHASSIS DRIVER [address] [address] Pustule (Primary Dx); [facility] Provider, [facility] Care Otalgia, right [address] [place] [address] Allergies Active Allergy Reactions Severity Noted Date Comments Penicillin Rash, Shortness of Breath 02/02/2017 documented as of this encounter (statuses as of 01/25/2020) Medications Medication Sig Dispensed Refills Start End Date Status Date Blood-Glucose Meter Check glucose 1 Kit 0 Active (ONETOUCH ULTRA2) once daily 8 Kit before breakfast; Diagnosis code E11.9 dec betamethasone Apply to 45 g 6 Ac [...] 9 tabletIndications: daily. Urinary frequency, Urge incontinence clobetasoL [...] current use of insulin pantoprazole 20 mg Take 20 mg by 0 Active EC tablet mouth daily. amLODIPine 2.5 mg Take 1 tablet 90 tablet 1 Active tabletIndications: by mouth at 0 Essential bedtime. DOSE hypertension, DECREASE. History of hypotension sulfamethoxazole-tri Take 1 tablet 20 tablet 0 Active methoprim 800-160 mg by mouth 2 0 per (two) times tabletIndications: daily. Abscess, axilla telmisartan-hydrochl Take 0.5 90 tablet 3 Active orothiazide 40-12.5 tablets by 0 mg per mouth daily. tabletIndications: Essential hypertension clindamycin 300 mg Take 1 28 capsule 0 02/01/20 Active capsuleIndications: capsule by 0 20 Pustule mouth 4 (four) times daily for 7 days. ibuprofen 800 mg Take 1 tablet 32 tablet 0 01/25/20 Discontinued tabletIndications: by mouth 0 20 ( Error) Otalgia, right every 6 (six) hours as needed for Pain (scale 4-6) for up to 14 days. documented as of this encounter (statuses as [...] Added automatically from request for laura ventura [id number] Diabetes mellitus type 2, controlled, without complica [...] been in contact with No / Unsure 01/25/2020 2:34 PM CDT someone who was confirmed or suspected to have Coronavirus / COVID-19? documented as of this encounter Last Filed Vital Signs Vital Sign Reading Time Taken Comments Blood Pressure 125/84 01/25/2020 2:35 PM CDT Pulse 88 01/25/2020 2:35 PM CDT Temperature 36.6 C (97.9 F) 01/25/2020 2:35 PM CDT Respiratory Rate 16 01/25/2020 2:35 PM CDT Oxygen Saturation 98% 01/25/2020 2:35 PM CDT Inhaled Oxygen Concentration - - Weight 113.4 kg (250 lb) 01/25/2020 2:35 PM CDT Height 167.6 cm (5' 6") 01/25/2020 2:35 PM CDT Body Mass Index 40.35 01/25/2020 2:35 PM CDT documented in this encounter Patient Instructions Patient InstructionsNeena Reyna FNP - 01/25/2020 4:40 PM CDT Patient Education Facial Cellulitis Cellulitis is an infection of the deep layers of skin. A break in the skin, such as a cut or scratch, can let bacteria under the skin. It may also occur from an infected oil gland (pimple) or hair follicle. If the bacteria get to deep layers of the skin, it can be serious. If not treated, cellulitis can get into the bloodstream and lymph nodes. The infection can then spread throughout the body. This causes serious illness. Cellulitis on the face is especially dangerous if it affects the skin around the eyes. Cellulitis causes the affected skin to become red, swollen, warm, and sore. The reddened areas have a visible border. You may have a fever, chills, and pain. Cellulitis is treated with antibiotics taken for 7 to 10 days. Symptoms should get better 1 to 2 days after treatment is started. Make sure to take all the antibiotics for the full number of days untilthey are gone. Keep taking the medicine even if your symptoms go away. Home care Follow these tips: Take all of the antibiotic medicine exactly as directed until it's gone. Dont miss any doses, especially during the first 7 days. Dont stop taking it when your symptoms get better. Use a cool compress (face cloth soaked in cool water) on your face to help reduce swelling and pain. You may use acetaminophen or ibuprofen to reduce pain. Dont use these if you have chronic liver or kidney disease, or ever had a stomach ulcer or gastrointestinal bleeding. Talk with your healthcare provider first. Follow-up care Follow up with your healthcare provider, or as advised. If your infection doesn't go away on the first antibiotic, your healthcare provider will prescribe a different one. When to seek medical advice Call your healthcare provider right away if any of these occur: Fever higher of 100.4 F (38.0 C) or higher after 2 days on antibiotics Red areas that spread Swelling or pain that gets worse Fluid leaking from the skin (pus) An eyelid that swells shut or leaks fluid (pus) Headache or neck pain that gets worse Unusual drowsiness or confusion Seizure Change in eyesight [employer] last reviewed this educational content on 12/21/201819990754-2768 [employer]. [address] [place] [address], [place] [address]. All rights reserved. This information is not intended as a substitute for professional medical care. Always follow your healthcare professional's instructions. documented in this encounter Progress Notes Neena Reyna FNP - 01/25/2020 4:40 PM CDT Cc: Chief Complaint Patient presents with Ear Pain right intermittent sharp pain x 01/24/2020 Headache right sided above ear, intermittent sharp pain x 01/24/2020, Tylenol @ 0800 with some relief per pt Nanci Barros is a 64 year old female. Patient is here with right ear pain that shoots up to the right side of the head with dull ache. Ear Pain Location: Right Behind ear: Redness and swelling Quality: Aching and shooting Severity: Moderate Onset quality: Gradual Duration: 2 days Timing: Constant Progression: Unchanged Chronicity: New Context: not foreign body in ear, not recent URI and not water in ear Relieved by: Nothing Ineffective treatments: None tried Associated symptoms: headaches Associated symptoms: no abdominal pain, no congestion, no cough, no diarrhea, no ear discharge, no fever, no hearing loss, no neck pain, no rash, no rhinorrhea, no sore throat, no tinnitus and no vomiting Headaches: Severity: Mild Onset quality: Gradual Timing: Intermittent Progression: Unchanged Chronicity: New Allergies Nanci is allergic to penicillin. Medications Outpatient Medications Prior to Visit Medication Sig Dispense Refill telmisartan-hydrochlorothiazide 40-12.5 mg per tablet Take 0.5 tablets by mouth daily. 90 tablet3 amLODIPine 2.5 mg tablet Take 1 tablet by mouth at bedtime. DOSE DECREASE. 90 tablet 1 sulfamethoxazole-trimethoprim 800-160 mg per tablet Take 1 tablet by mouth 2 (two) times daily. 20 tablet 0 pantoprazole 20 mg EC tablet Take 20 mg by mouth daily. metformin ER 500 mg 24 hr tablet Take 1 tablet by mouth daily with breakfast. 90 tablet 2 OMEPRAZOLE 40 mg capsule TAKE 1 CAPSULE BY MOUTH DAILY 90 capsule 1 clobetasoL 0.05 % ointment Apply to area(s) 2 (two) times daily. 60 g 1 mirabegron (MYRBETRIQ) 25 mg tablet Take [...] at bedtime. 45 g 6 Blood-Glucose Meter (ONETOUCH ULTRA2) Kit Check glucose once daily before breakfast; Diagnosis code E11.9 1 Kit 0 No facility-administered medications prior to visit. Histories [...] Monge MD; Location: [facility] OR [facility] ESOPHAGOGASTRODUODENOSCOPY Upper 11/22/2019 Surgeon: Tish Pickering MD; Location: [facility] OR [facility] LEG/ANKLE SURGERY PROC UNLISTED SHOULDER ARTHROSCOPY [...] file Gets together: Not on file Attends baptism service: Not on file Active member of [...] Psychiatry NoFHx Review of Systems Constitutional: Negative. Negative for fever. HENT: Positive for ear pain. Negative for congestion, ear discharge, hearing loss, rhinorrhea, sore throat and tinnitus. Respiratory: Negative. Negative for apnea, cough, choking, chest tightness and shortness of breath. Cardiovascular: Negative. Negative for chest pain, palpitations and leg swelling. Gastrointestinal: Negative. Negative for abdominal pain, diarrhea and vomiting. Musculoskeletal: Negative for neck pain. Skin: Positive for wound. Negative for rash. Neurological: Positive for headaches. Endocrine: Endocrine negative Vital Signs BP 125/84 | Pulse 88 | Temp 36.6 C (97.9 F) (Oral) | Resp 16 | Ht 5' 6" (1.676 m) | Wt 250 lb (113.4 kg) | SpO2 98% | BMI 40.35 kg/m Physical Exam Vitals signs and nursing note reviewed. Constitutional: Appearance: She is well-developed. HENT: Head: Normocephalic. Right Ear: Hearing, tympanic membrane and external ear normal. Swelling present. Left Ear: Hearing, tympanic membrane, ear canal and external ear normal. Ears: Nose: Nose normal. Neck: Musculoskeletal: Normal range of motion and neck supple. Cardiovascular: Rate and Rhythm: Normal rate and regular rhythm. Heart sounds: Normal heart sounds. No murmur. No friction rub. No gallop. Pulmonary: Effort: Pulmonary effort is normal. No respiratory distress. Breath sounds: Normal breath sounds. No wheezing or rales. Chest: Chest wall: No tenderness. Abdominal: General: Bowel sounds are normal. There is no distension. Palpations: Abdomen is soft. Tenderness: There is no abdominal tenderness. Skin: General: Skin is warm and dry. Capillary Refill: Capillary refill takes less than 2 seconds. Coloration: Skin is not pale. Findings: No erythema or rash. Neurological: Mental Status: She is alert and oriented to person, place, and time. Psychiatric: Mood and Affect: Mood normal. Assessment/Plan 1. Pustule: clindamycin given. Monitor for signs of worsening infection such as fever, chill, increased pain and swelling and RTC if any. 2. Otalgia: Ibuprofen given for symptoms relief. Clinical references for home car instructions reviewed and copy given. Plan of care, desired health behaviors, goals, and medication discussed with patient. Education resources provided and reviewed with AVS. Patient/guardian/family verbalized understanding & agrees to plan of care. This visit did not involve counseling and coordination that comprised more than 50% of the visit time. If applicable, the [facility] database was accessed to review any controlled substance prescription claims data. The [employer] prescription claims data in [employer] was reviewed to assess patient compliance with the medication treatment plan. Freda More RN - 01/25/2020 4:40 PM CDT Nanci Barros is a 64 year old female Chief Complaint Patient presents with Ear Pain right intermittent sharp pain x 01/24/2020 Headache right sided above ear, intermittent sharp pain x 01/24/2020, Tylenol @ 0800 with some relief per pt Vitals: 01/25/20 1435 BP: 125/84 Pulse: 88 Resp: 16 Temp: 36.6 C (97.9 F) TempSrc: Oral SpO2: 98% Weight: 250 lb (113.4 kg) Height: 5' 6" (1.676 m) [id number] - [place], [place] - [address] Patient AAOx4 and in no acute distress. All Vitals taken, allergies and all medications reviewed, fall risk assessed. documented in this encounter Plan of Treatment Date Type Specialty Care Team Description 01/31/2020 Office Visit Urology John Ochoa M D [address] [facility] [address] [place], [place] [id number] 06/10/2020 Office Visit Family Medicine Estrada Wang MD [address] [place] [phone] Health Maintenance Due Date Last [...] Type Problems Progress weight down General Yes [place], to 247 lbs Doug Barnes MD by October of 2017 documented as of this encounter Results Not on filedocumented in this encounter Visit Diagnoses Diagnosis Pustule - Primary Unspecified local infection of skin and subcutaneous tissue Otalgia, right documented in this encounter Insurance Payer Benefit Plan / Subscriber ID Effective Dates Phone Addre ss Type Group [facility] [id number] 2020-Present [facility] (Work) documented as of this encounter
--- OUTSIDE RECORDS SUMMARY | 2020-03-18 05:48 | XMS REPORT | Summary of Care ---
:1955 Author Organization [facility] Address [address] [place] [address] Care Team Providers Name Role Phone Molly [...] UROLOGY Doug Barnes MD MD [address] [place] [phone] Phone: Fax: Fax: Encounter Details Date Type Department Care Team Description 01/31/2020 Office Visit [facility] [place] [facility]- Adriel Ochoa MD Uterovaginal prolapse, [place] [address] [facility] incomplete (Primary [address] [place] [address] [phone] Allergies Active Allergy Reactions Severity Noted Date [...] Added automatically from request for laura ventura [id number] Morbid obesity with body mass index of [...] Added automatically from request for laura ventura [id number] Diabetes mellitus type 2, controlled, without complica [...] 01/31/2020 8:30 AM CDT John Ochoa MD Check Processing Clerk of Urology Female Urology, Voiding Dysfunction and Pelvic Reconstruction [facility] Division of Urology Referring Provider: Yayo Armijo MD [address] [place] [phone] Wang, Thank you for your [...] N/A 03/03/2017 Surgeon: Humaira Monge MD; Location: [facility] OR Location ESOPHAGOGASTRODUODENOSCOPY Upper 11/22/2019 Surgeon: Tish Pickering MD; Location: [facility] OR Location LEG/ANKLE SURGERY PROC UNLISTED [...] file Gets together: Not on file Attends sikhism service: Not on file Active member of [...] additional intervention; medical complications including DVT, PE, PA, CVA and ; voiding dysfunction requiring indwelling [...] Date Type Specialty Care Team Description 01/31/2020 Child Support Case Officer Visit Phlebotomy John Ochoa MD [address] [facility] [address] [place] [address] [phone] Arrived Lab, [facility] 02/15/2020 Hospital Encounter Surgery John Ochoa MD Uterovaginal prolapse, [address] [facility] [address] [place] [address] 02/15/2020 Surgery Surgery John Ochoa M D VAGINAL RECONSTRUCTION [address] [facility] [address] [place] [address] [phone] 06/10/2020 Office Visit Family Medicine Doug Wang MD [address] [place] [phone] Name Type Priority Associated Diagnoses Order [...] Type Problems Progress weight down General Yes [place], to 247 lbs Doug Barnes MD by October of 2017 documented as of this encounter Results Not on filedocumented in this encounter Visit Diagnoses Diagnosis Uterovaginal prolapse, incomplete - Prim cadence Uterovaginal prolapse, incomplete - Prim cadence Uterovaginal prolapse, incomplete documented in this encounter Insurance Payer Benefit Plan / Subscriber ID Effective Dates Phone Addre ss Type Group [facility] [id number] 2020-Present [facility] (Work) documented as of this encounter
--- OUTSIDE RECORDS SUMMARY | 2020-03-18 05:49 | XMS REPORT | Summary of Care ---
:1955 Author Organization [facility] Address [address] [place] [address] Care Team Providers Name Role Phone Molly Wang MD Primary Care Provider MD Capo Unavailable Sitter Unavailable Davis Dukes MD Unavailable Keith Naqvi Unavailable Reason for Visit Reason Comments LAB WORK Encounter Details Date Type Department Care Team Description 01/31/2020 Rand Tacker Visit [facility] John Ochoa MD [address] [facility] [address] [place] [address] Uterovaginal Primary and Lab, [facility] Cbc prolapse, incomplete Specialty Care Lab [address] [place] [address] Allergies Active Allergy Reactions Severity Noted Date [...] Added automatically from request for laura ventura [id number] Morbid obesity with body mass index of [...] Added automatically from request for laura whitehead [id number] Diabetes mellitus type 2, controlled, without complica [...] on filedocumented in this encounter Nursing Notes Brian Roberson - 01/31/2020 9:15 AM CDT Patient presented with specimen for drop-off and was identified by and name. Collection information/ total volume were documented accordingly. The following specimens were sent to [facility] per lab order on 01/31/2020:LONG TERM ACUTE CARE REGISTERED NURSE ( [place]) brought in 24 hour urine Random urine Stool Swab Other Urine cul documented in this encounter Plan of Treatment Date Type Specialty Care Team Description 02/15/2020 Hospital Encounter Surgery John Ochoa MD Uterovaginal prolapse, [address] [facility] [address] [place], [place] [phone] 02/15/2020 Surgery Surgery John Ochoa M D VAGINAL RECONSTRUCTION [address] [facility] [address] [place] [address] 06/10/2020 Office Visit Family Medicine Doug Wang MD [address] [place] [phone] Health Maintenance Due Date Last Done Comments [...] Type Problems Progress weight down General Yes [place], to 247 lbs Doug Barnes MD by October of 2017 documented as of this encounter Results Not on filedocumented in this encounter Visit Diagnoses Diagnosis Uterovaginal prolapse, incomplete Uterovaginal prolapse, incomplete - Prim cadence Uterovaginal prolapse, incomplete documented in this encounter Insurance Payer Benefit Plan / Subscriber ID Effective Dates Phone Addre ss Type Group [facility] [id number] 2020-Present [facility] (Work) documented as of this encounter
--- OUTSIDE RECORDS SUMMARY | 2020-03-18 05:49 | XMS REPORT | Summary of Care ---
:1955 Author Organization [facility] Address [address] [place] [address] Care Team Providers Name Role Phone Molly Wang MD Primary Care Provider MD Capo Unavailable Sitter Unavailable Davis Dukes MD Unavailable Keith Naqvi Unavailable Reason for Visit Reason Comments LAB WORK Encounter Details Date Type Department Care Team Description 01/31/2020 Furniture Stainer Visit [facility] John Ochoa MD [address] [facility] [address] [place] [address] Uterovaginal Primary and Lab, [facility] Cbc prolapse, incomplete Specialty Care Lab [address] [place] [address] Allergies Active Allergy Reactions Severity [...] Added automatically from request for laura ventura [id number] Morbid obesity with body mass index of [...] Added automatically from request for laura whitehead [id number] Diabetes mellitus type 2, controlled, without complica [...] sent to [facility] per lab order on 01/31/2020: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 ( [place]) brought in 24 hour urine Random urine Stool Swab Other Urine cul documented in this encounter Plan of Treatment Date Type Specialty Care Team Description 02/15/2020 Hospital Encounter Surgery John Ochoa MD Uterovaginal prolapse, [address] [facility] [address] [place], [place] [phone] 02/15/2020 Surgery Surgery John Ochoa M D VAGINAL RECONSTRUCTION [address] [facility] [address] [place] [address] 06/10/2020 Office Visit Family Medicine Doug Wang MD [address] [place] [phone] Health Maintenance Due Date Last Done Comments [...] Type Problems Progress weight down General Yes [place], to 247 lbs Doug Barnes MD by October of 2017 documented as of this encounter Results Not on filedocumented in this encounter Visit Diagnoses Diagnosis Uterovaginal prolapse, incomplete Uterovaginal prolapse, incomplete - Prim cadence Uterovaginal prolapse, incomplete documented in this encounter Insurance Payer Benefit Plan / Subscriber ID Effective Dates Phone Addre ss Type Group [facility] [id number] 2020-Present [facility] (Work) documented as of this encounter
--- OUTSIDE RECORDS SUMMARY | 2020-03-18 05:50 | XMS REPORT | Summary of Care ---
:1955 Author Organization [facility] Address [address] [place] [address] Care Team Providers Name Role Phone Molly Wang MD Primary Care Provider MD Capo Unavailable Sitter Unavailable Davis Dukes MD Unavailable Keith Naqvi Unavailable Reason for Visit Reason Comments Refill Request Encounter Details Date Type Department Care Team Description 02/18/2020 Refill [facility] Urology- John Jarrell MD Refill Request [facility] [address] [place] [address] So [facility] [address] [place], [place] [phone] [place], [place] [address] Allergies Active Allergy Reactions Severity Noted Date Comments Penicillin Rash, Shortness of Breath 02/02/2017 documented as of this encounter (statuses as of 02/19/2020) Medications Medication Sig Dispensed Refills Start Date [...] E11.9 without long-term current use of insulin metformin ER 500 mg Take 1 tablet by 90 tablet 2 11/07/2019 Active 24 hr mouth daily with tabletIndications: breakfast. Controlled type 2 diabetes mellitus without complication, without long-term current use of insulin pantoprazole 20 mg EC Take 20 mg by 0 Active tablet mouth daily. amLODIPine 2.5 mg Take 1 tablet by 90 tablet 1 12/11/2019 Active tabletIndications: mouth at Essential bedtime. DOSE hypertension, History DECREASE. of hypotension telmisartan-hydrochlo Take 0.5 tablets 90 tablet 3 01/18/2020 Active rothiazide 40-12.5 mg by mouth daily. per tabletIndications: Essential hypertension ibuprofen 800 mg Take 800 mg by 0 01/25/2020 020 Active tablet mouth as needed. acetaminophen Take 2 tablets 0 02/16/2020 02/15/2021 Active (TYLENOL) 325 mg by mouth every 6 tabletIndications: (six) hours as Uterovaginal needed for Pain prolapse, incomplete (scale 1-3). gabapentin 300 mg Take 1 capsule 15 capsule 0 02/16/2020 Active capsuleIndications: by mouth 3 Uterovaginal (three) times prolapse, incomplete daily. sulfamethoxazole-trim Take 1 tablet by 6 tablet 0 02/16/2020 02/19/2020 Active ethoprim (BACTRIM DS) mouth 2 (two) 800-160 mg per times daily for tabletIndications: 3 days. Uterovaginal prolapse, incomplete documented as of this encounter (statuses as of 02/19/2020) Active Problems Problem Noted Date Observation after surgery 02/15/2020 Uterovaginal prolapse, incomplete 01/31/2020 Overview: Added automatically from request for laura ventura [id number] Morbid obesity with body mass index of [...] Added automatically from request for laura whitehead [id number] Diabetes mellitus type 2, controlled, without complica tions 02/04/2017 Essential hypertension 02/04/2017 GERD (gastroesophageal reflux disease) 02/04/2017 documented as of this encounter (statuses as of 02/19/2020) Immunizations Name Administration Dates Next Due Pneumococcal [...] month, have you been in contact with Yes 02/07/2020 9:37 AM CDT someone who was confirmed or suspected to have Coronavirus / COVID-19? documented as of this encounter Last Filed Vital Signs Not on filedocumented in this encounter Miscellaneous Notes Telephone Encounter - Mandy Barger RN - 02/19/2020 2:08 PM CDTContacted and informed the patient she does not require more antibiotics. Patient verbalized understanding with no concerns/questions. elephone Encounter - John Ochoa MD - 02/18/2020 3:39 PM CDTIt is enough. Thanks John Ochoa MD elephone Encounter - Mandy Barger RN - 02/18/2020 1:43 PM CDTNo she doesn't want a refill of Gabapentin. Did not ask pharmacy for that refill. Her question is if the antibiotics is enough she received x 3 days worth (BID). No fevers, a little pain that isn't really bad in bladder when she uses the bladder (not complainingabout the pain), no burning with urination, no frequency. elephone Encounter - Mandy Barger RN - 02/18/2020 1:37 PM CDTReceived fax refill request from [place], [place] ([address] [facility]) for Gabapentin 300 mg capsule refill, take one capsule by mouth TID. documented in this encounter Plan of Treatment Date Type Specialty Care Team Description 02/22/2020 Office Visit Family Medicine Estrada Wnag MD [address] [place] [phone] 02/27/2020 Office Visit Urology Ysabel Carter i, [facility] [address] [facility] [address] [place], [place] [address] 06/10/2020 Office Visit Family Estrada Godwin MD [address] [place] [phone] Health Maintenance Due Date Last Done Comments [...] MICROALBUMIN 12/23/2020 12/24/2019, 10/03/2018, 02/02/2017 Depression Screening 02/14/2021 02/15/2020 CREATININE (SERUM) 02/15/2021 02/16/2020, 01/11/2020, 12/24/2019, Additional history exists PAP SMEAR 08/17/2021 08/17/2018, [...] encounter Visit Diagnoses Diagnosis Uterovaginal prolapse, incomplete documented in this encounter Insurance Payer Benefit Plan / Subscriber ID Effective Dates Phone Addre ss Type Group [facility] [id number] 2020-Present PPO HEALTHCARE/AARP documented as of this encounter
--- OUTSIDE RECORDS SUMMARY | 2020-03-18 05:50 | XMS REPORT | Summary of Care ---
:1955 Author Organization [facility] - [facility] Address [address] [place] [address] Care Team Providers Name Role Phone Molly Wang MD Primary Care Provider MD Capo Unavailable Sitter Unavailable Davis Dukes MD Unavailable Keith Naqvi Unavailable Reason for Visit Reason Comments LAB WORK Auth/Cert Status Reason Specialty Diagnoses / Referred By Referred To Procedures Contact Contact Clinical Medical Diagnoses Incomplete uterovaginal prolapse Incomplete uterovaginal prolapse [N81.2] Adc Lab Laboratory Procedures COVID-19 (ID NOW RAPID TESTING) RAPID YELLOW COVID [address] [place] [address] Encounter Details Date Type Department Care Team Description 02/11/2020 Laboratory Only [facility] John Ochoa M D [address] [facility] [address] [place] [address] Pre-op chest exam Phlebotomy Only, Adc Test (Primary Dx) Lab-[address] [address] Allergies Active Allergy Reactions Severity Noted Date Comments Penicillin Rash, Shortness of Breath 02/02/2017 documented as of this encounter (statuses as of 02/11/2020) Medications Medication Sig Dispensed Refills Start Date [...] tablets by tabletIndications: mouth daily. Essential hypertension ibuprofen 800 mg tablet Take 800 mg by 0 01/25/2020 02/20/2020 Active mouth as needed. documented as of this encounter (statuses as of 02/11/2020) Active Problems Problem Noted Date Uterovaginal prolapse, incomplete 01/31/2020 Overview: Added automatically from request for laura whitehead [id number] Morbid obesity with body mass index of [...] Added automatically from request for laura whitehead [id number] Diabetes mellitus type 2, controlled, without complica tions 02/04/2017 Essential hypertension 02/04/2017 GERD (gastroesophageal reflux disease) 02/04/2017 documented as of this encounter (statuses as of 02/11/2020) Immunizations Name Administration Dates Next Due Pneumococcal [...] this encounter Nursing Notes Bonny Smallwood - 02/11/2020 8:45 AM CDTcovid pre op documented in this encounter Plan of Treatment Date Type Specialty Care Team Description 02/15/2020 Hospital Encounter Surgery John Ochoa MD Uterovaginal prolapse, [address] [facility] [address] [place], [place] [address] 02/15/2020 Surgery Surgery John Ohcoa M D VAGINAL RECONSTRUCTION [address] [facility] [address] [place] [address] [phone] 06/10/2020 Office Visit Family Medicine Doug Wang MD [address] [place] [phone] Name Type Priority Associated Diagnoses Date/Ti me COVID-19 (ID NOW RAPID LAB Routine Pre-op chest exam 02/11/2020 9:15 AM CDT TESTING) Name Type Priority Associated Diagnoses Order S chedule COVID-19 (ID NOW RAPID LAB Routine Pre-op chest exam Expected: 02/11/2020, TESTING) Expires: 2020 Health Maintenance Due Date Last [...] Diagnosis Uterovaginal prolapse, incomplete - Prim cadence Pre-op chest exam - Primary Pre-operative respiratory examination Uterovaginal prolapse, incomplete documented in this encounter Insurance Payer Benefit Plan / Subscriber ID Effective Dates Phone Addre ss Type Group [facility] [id number] 2020-Present [facility] (Work) documented as of this encounter
--- OUTSIDE RECORDS SUMMARY | 2020-03-18 05:50 | XMS REPORT | Summary of Care ---
:1955 Author Organization [facility] - [facility] Address [address] [place] [address] Care Team Providers Name Role Phone Molly Wang MD Primary Care Provider MD Capo Unavailable Sitter Unavailable Davis Dukes MD Unavailable Keith Naqvi Unavailable Reason for Visit Reason Comments Refill Request Encounter Details Date Type Department Care Team Description 02/18/2020 Refill [facility] Urology- John Jarrell MD Refill Request [facility] [address] [place] [address] [address] [facility] [address] [place], [place] [phone] [place], [place] [address] Allergies Active Allergy Reactions Severity Noted Date Comments Penicillin Rash, Shortness of Breath 02/02/2017 documented as of this encounter (statuses as of 02/18/2020) Medications Medication Sig Dispensed Refills Start Date [...] as of this encounter (statuses as of 02/18/2020) Active Problems Problem Noted Date Observation after surgery 02/15/2020 Uterovaginal prolapse, incomplete 01/31/2020 Overview: Added automatically from request for laura ventura [id number] Morbid obesity with body mass index of [...] Added automatically from request for laura whitehead [id number] Diabetes mellitus type 2, controlled, without complica tions 02/04/2017 Essential hypertension 02/04/2017 GERD (gastroesophageal reflux disease) 02/04/2017 documented as of this encounter (statuses as of 02/18/2020) Immunizations Name Administration Dates Next Due Pneumococcal [...] this encounter Miscellaneous Notes Telephone Encounter - John Ochoa MD - 02/18/2020 [...] 1:37 PM CDTReceived fax refill request from [place], [place] ([address] [facility]) for Gabapentin 300 mg capsule refill, take one capsule by mouth TID. documented in this encounter Plan of Treatment Date Type Specialty Care Team Description 02/22/2020 Office Visit Family Medicine Estrada Wang MD [address] [place] [phone] 02/27/2020 Office Visit Urology Ysabel Carter i, P [address] [facility] [address] [place] [address] 06/10/2020 Office Visit Family Estrada Godwin MD [address] [place] [address]76 52-8793 [phone] Health Maintenance Due Date Last Done Comments [...] Type Problems Progress weight down General Yes [place], to 247 lbs Doug Barnes MD by October of 2017 documented as of this encounter Results Not on filedocumented in this encounter Visit Diagnoses Diagnosis Uterovaginal prolapse, incomplete documented in this encounter Insurance Payer Benefit Plan / Subscriber ID Effective Dates Phone Addre ss Type Group [facility] [id number] 2020-Present [facility] documented as of this encounter
--- OUTSIDE RECORDS SUMMARY | 2020-03-18 05:50 | XMS REPORT | Summary of Care ---
:1955 Author Organization [facility] Address [address] [place] [address] Care Team Providers Name Role Phone Molly Wang MD Primary Care Provider MD Capo Unavailable Sitter Unavailable Davis Dukes MD Unavailable Keith Naqvi Unavailable Encounter Details Date Type Department Care Team Description 02/15/2020 Orders Only [facility] Doctor Unassigned, No [address] [facility] [place] [address] [address] [place] [address] Allergies Active Allergy Reactions Severity Noted Date [...] Added automatically from request for laura ventura [id number] Morbid obesity with body mass index of [...] Added automatically from request for laura whitehead [id number] Diabetes mellitus type 2, controlled, without complica [...] Care Team Description 02/22/2020 Office Visit Family Estrada Godwin MD [address] [place], [place] [phone] 06/10/2020 Office Visit Family Estrada Godwin MD [address] [place] [phone] Health Maintenance Due Date Last [...] Type Problems Progress weight down General Yes [place], to 247 lbs Doug Barnes MD by October of 2017 documented as of this encounter Procedures Procedure Name Priority Date/Time Associated Diagnosis Comme SURGERY - VICTORY Routine 02/15/2020 12:01 AM CDT [place] documented in this encounter Results Not on filedocumented in this encounter Insurance Payer Benefit Plan / Subscriber ID Effective Dates Phone Addre ss Type Group [facility] [id number] 2020-Present PPO HEALTHCARE/AARP documented as of this encounter
--- OUTSIDE RECORDS SUMMARY | 2020-03-18 05:51 | XMS REPORT | Summary of Care ---
:1955 Author Organization [facility] - Health Address [address] [place] [address] Care Team Providers Name Role Phone Molly Wang MD Primary Care Provider MD Capo Unavailable Sitter Unavailable Davis Dukes MD Unavailable Keith Naqvi Unavailable Encounter Details Date Type Department Care Team Description 02/25/2020 Orders Only [facility] Doctor Unassigned, No [address] [facility] [place] [address] [address] [place] [address] Allergies Active Allergy Reactions Severity Noted Date Comments Penicillin Rash, Shortness of Breath 02/02/2017 documented as of this encounter (statuses as of 02/25/2020) Medications Medication Sig Dispensed Refills Start Date [...] bedtime. DOSE hypertension, History DECREASE. of hypotension acetaminophen Take 2 tablets 0 02/16/2020 02/15/2021 Active (TYLENOL) 325 mg by mouth every 6 tabletIndications: (six) hours as Uterovaginal needed for Pain prolapse, incomplete (scale 1-3). gabapentin 300 mg Take 1 capsule 15 capsule 0 02/16/2020 Active capsuleIndications: by mouth 3 Uterovaginal (three) times prolapse, incomplete daily. telmisartan-hydrochlo Take 0.5 tablets 45 tablet 3 02/22/2020 Active rothiazide 40-12.5 mg by mouth daily. per tabletIndications: Essential hypertension documented as of this encounter (statuses as of 02/25/2020) Active Problems Problem Noted Date Observation after surgery 02/15/2020 Uterovaginal prolapse, incomplete 01/31/2020 Overview: Added automatically from request for laura whitehead [id number] Morbid obesity with body mass index of [...] Added automatically from request for laura whitehead [id number] Diabetes mellitus type 2, controlled, without complica tions 02/04/2017 Essential hypertension 02/04/2017 GERD (gastroesophageal reflux disease) 02/04/2017 documented as of this encounter (statuses as of 02/25/2020) Immunizations Name Administration Dates Next Due Pneumococcal [...] been in contact with No / Unsure 02/22/2020 8:25 AM CDT someone who was confirmed or suspected to have Coronavirus / COVID-19? documented as of this encounter Last Filed Vital Signs Not on filedocumented in this encounter Plan of Treatment Date Type Specialty Care Team Description 02/25/2020 Mechanic'S Assistant Visit Phlebotomy Wilma Wang MD [address] [place] [phone] Pob, Adc Lab Main 03/04/2020 Office Visit Urology John Ochoa M D [address] include [address] beds at the [facility] [address] [place] [address] [phone] 06/10/2020 Office Visit Family Medicine Estrada Wang MD [address] [place] [phone] Health Maintenance Due Date Last Done Comments DTaP,Tdap,and Td Vaccines 1974 (1 - Tdap) COLON CANCER SCREENING 2005 ANNUAL FIT/FOBT COLON CANCER SCREENING FIT 2005 DNA EVERY 3 YEARS COLON CANCER SCREENING 2005 SIGMOIDOSCOPY EVERY 5 YEARS Breast Cancer Screening 12/20/2019 12/19/2018, 07/17/2012 (MAMMOGRAM) Zoster Recombinant Vaccine 01/31/2020 12/06/2019 (SHINGRIX) (2 of 2) PNEUMOCOCCAL 0-64 YEARS 03/31/2020 03/31/2019, 05/23/2016, COMBINED SERIES (3 of 3 - 05/23/2009 PCV13) HgA1C 06/25/2020 12/24/2019, 02/14/2019, 10/03/2018, Additional history exists INFLUENZA VACCINE (#1) 2020 Postponed from 01/22/2020 (Refu sed) EYE EXAM 12/04/2020 12/05/2019, 07/25/2017 FOOT EXAM [...] Name Priority Date/Time Associated Diagnosis Comme nts ASSIGNMENT OF BENEFITS Routine 02/25/2020 8:12 AM CDT documented in this encounter Results Not on filedocumented in this encounter Insurance Payer Benefit Plan / Subscriber ID Effective Dates Phone Addre ss Type Group [facility] [id number] 2020-Present PPO HEALTHCARE/AARP documented as of this encounter
--- OUTSIDE RECORDS SUMMARY | 2020-03-18 05:51 | XMS REPORT | Summary of Care ---
:1955 Author Organization [facility] Address [address] [place] [id number] Care Team Providers Name Role Phone Molly Wang MD Primary Care Provider MD Capo Unavailable Sitter Unavailable Davis Dukes MD Unavailable Keith Naqvi Unavailable Reason for Visit Reason Comments LAB WORK Auth/Cert Status Reason Specialty Diagnoses / Procedures Referred By Susan anderson Referred To Contact Phlebotomy Procedures Adc Pob Lab Draw MAGNESIUM Professional Office CBC W/DIFF Building VITAMIN B12, LEV EL [address] [facility] [address] , [address] IRON PANEL [place], [place] FERRITIN SERUM [phone] URINALYSIS URINE CULTURE Fax: Encounter Details Date Type Department Care Team Description 02/25/2020 Naphthalene Operator Visit [facility] Wilma Wang MD [address] [place] [address] [place] [phone] Renal dysfunction; Professional Office Pob, Adc Lab Main Hyperkalemia; Building Phlebotomy [facility] hypertension; Lab Medication monitoring encoun ter; Professional Office Nocturia ; Building Postoperative anemia; [address] [facility] [address] , [address] [place] [phone] Allergies Active Allergy Reactions Severity Noted Date [...] Added automatically from request for laura whitehead [id number] Morbid obesity with body mass index of [...] Added automatically from request for laura whitehead [id number] Diabetes mellitus type 2, controlled, without complica [...] on filedocumented in this encounter Nursing Notes López Kasper - 02/25/2020 8:30 AM CDT Venipuncture collection performed by clean technique on the left anticubitus. Total of 1 attempts were made. Slight pressure and a bandage/dressing were applied to the site(s). The patient experienced no complications. The following specimens were processed according to instructions and sent to [facility] laboratories per lab order on today: LT BLUE SST 2 RED LAV 1 PPT DK GREEN (LiHep) DK GREEN (SodH) ANDREW DK BLUE (K2) DK BLUE (S) ACD Blood Culture NIPT/NTD Patient has been identified by and name and was provided with cup, antiseptic towelette, and clean catch instructions. 2 urine specimen(s) sent. Unpreserved 1 Urine Culture 1 Aptima tube Other urine documented in this encounter Plan of Treatment Date Type Specialty Care Team Description 03/04/2020 Office Visit Urology John Ochoa M D [address] [facility] [address] [place] [address] [phone] 06/10/2020 Office Visit Family Medicine Estrada Wang MD [address] [place] [phone] Name Type Priority Associated Diagnoses Date/Ti me BASIC METABOLIC PANEL LAB Routine Renal dysf unction 02/25/2020 8:31 AM (NA, K, CL, CO2, Hyperkalemia CDT GLUCOSE, BUN, Essential hypert ension CREATININE, CA) Medication monitoring encounter URINE CULTURE LAB Routine Nocturia 02/25/2020 8: 36 AM CDT FERRITIN SERUM LAB Routine Postoperative anemia 02/24 8:31 AM CDT IRON PANEL LAB Routine Postoperative anemia 020 8:31 AM CDT FOLATE LAB Routine Postoperative anemia 020 8:31 AM CDT VITAMIN B12, LEVEL LAB Routine Postoperative anemia 1 8:31 AM CDT MAGNESIUM LAB Routine Hypomagnesemia 02/25/2020 8 :31 AM CDT Health Maintenance Due Date Last Done Comments [...] Name Priority Date/Time Associated Diagnosis Comme nts URINALYSIS Routine 02/25/2020 8:36 AM Nocturia Results for this CDT procedure are i n the results section . CBC WITH DIFF Routine 02/25/2020 8:31 AM Postoperative anemia Results for this CDT procedure are i n the results section . documented in this encounter Results URINALYSIS (02/25/2020 8:36 AM CDT) Pathologist Sig nature APPEARANCE Clear Clear [facility] COLOR Yellow Yellow [facility] PH 5.0 4.8 - 8.0 [facility] SP GRAVITY 1.016 1.003 - 1.030 [facility] GLU U QUAL Normal Normal [facility] BLOOD 2+ (A) Negative [facility] KETONES Negative Negative [facility] PROTEIN Negative Negative [facility] UROBILIN Normal Normal [facility] BILIRUBIN Negative Negative [facility] NITRITE Negative Negative [facility] LE[place] JANEEN 250/uL (A) Negative [facility] RBC/HPF 6 (H) 0 - 3 HPF [facility] WBC/HPF 10 (H) 0 - 5 HPF [facility] BACTERIA Few (A) Negative [facility] MUCOUS Slight (A) Negative LPF [facility] SQ EPITH 6 HPF [facility] Specimen Urine - URINE, CLEAN CATCH Performing Organization Address City/State/Zipcode Phone Number [facility] CLIA: [id number] [place] [address] CBC WITH DIFF (02/25/2020 8:31 AM CDT) Pathologist Sig nature WBC 5.77 4.30 - 11.10 [facility] 10*3/L [facility] RBC 3.95 3.93 - 5.25 [facility] 10*6/L [facility] HGB 11.4 (L) 11.6 - 15.0 [facility] g/dL [facility] HCT 36.7 35.7 - 45.2 % [facility] MCV 92.9 80.6 - 95.5 fL [facility] MCH 28.9 25.9 - 32.8 pg [facility] MCHC 31.1 (L) 31.6 - 35.1 [facility] g/dL [facility] RDW-SD 45.3 39.0 - 49.9 fL [facility] RDW-CV 13.2 12.0 - 15.5 % [facility] PLT 198 166 - 358 [facility] 10*3/L [facility] MPV 9.1 (L) 9.5 - 12.9 fL [facility] NRBC/100 WBC 0.0 0.0 - 10.0 /100 [facility] WBCs [facility] NRBC x10^3 <0.01 10*3/L [facility] GRAN MAT (NEUT) % 61.4 % [facility] IMM GRAN % 0.50 % [facility] LYMPH % 25.0 % [facility] MONO % 8.3 % [facility] EOS % 4.3 % [facility] BASO % 0.5 % [facility] GRAN MAT x10^3(ANC) 3.54 1.88 - 7.09 [facility] 10*3/uL [facility]OSPITAL LAB[facility]ORY IMM GRAN x10^3 0.03 0.00 - 0.06 [facility] 10*3/uL [facility]ITAL LAB[facility] LYMPH x10^3 1.44 1.32 - 3.29 [facility] 10*3/uL H[facility]PITAL LAB[facility] MONO x10^3 0.48 0.33 - 0.92 [facility] 10*3/uL HOSPITAL LAB[facility] EOS x10^3 0.25 0.03 - 0.39 [facility] 10*3/uL HOSPITAL LAB[facility] BASO x10^3 0.03 0.01 - 0.07 [facility] 10*3/uL HOSPITAL LABOR[facility]ORY Specimen Blood - ARM, LEFT Performing Organization Address City/State/Zipcode Phone Number [facility] CLIA: [id number] [place] [address] documented in this encounter Visit Diagnoses Diagnosis Renal dysfunction Unspecified disorder of kidney and urete r Hyperkalemia Hyperpotassemia Essential hypertension Unspecified essential hypertension Medication monitoring encounter Encounter for therapeutic drug monitorin g Nocturia Postoperative anemia Anemia, unspecified Hypomagnesemia Disorders of magnesium metabolism documented in this encounter Insurance Payer Benefit Plan / Subscriber ID Effective Dates Phone Addre ss Type Group [facility] [id number] 2020-Present [facility]/AARP documented as of this encounter
--- OUTSIDE RECORDS SUMMARY | 2020-03-18 05:52 | XMS REPORT | Summary of Care ---
:1955 Author Organization [facility] - [facility] Address [address] [place] [address] Care Team Providers Name Role Phone Molly Wang MD Primary Care Provider MD Capo Unavailable Sitter Unavailable Davis Dukes MD Unavailable Keith Naqvi Unavailable Reason for Visit Reason Comments Hospital F/U Encounter Details Date Type Department Care Team Description 02/22/2020 Office Visit [facility] Stef [facility] ital discharge follow-up (Primary Dx); Medicine - Leander Barnes MD Nocturia; [address] [place] [address] DR [place]; [place], [place] Postoperative anemia; [place] [address] Essential hypertension [id number] Allergies Active Allergy Reactions Severity Noted Date Comments Penicillin Rash, Shortness of Breath 02/02/2017 documented as of this encounter (statuses as of 02/28/2020) Medications Medication Sig Dispensed Refills Start Date End Date Status Blood-Glucose Check glucose 1 Kit 0 09/07/2017 A ctive Meter (ONETOUCH once daily ULTRA2) Kit before breakfast; Diagnosis code E11.9 aug betamethasone Apply to 45 g 6 01/19/2018 A ctive dipropionate 0.05 area(s) at % bedtime. ointmentIndication s: Lichen sclerosus ONETOUCH ULTRA Check glucose 100 Strip 3 11/10/2018 Active BLUE TEST STRIP once daily stripIndications: before Controlled type 2 breakfast; diabetes mellitus ICD-10 code without E11.9 complication, without long-term current use of insulin ONE TOUCH DELICA Check glucose 100 Each 3 11/10/2018 Active 33 gauge once daily MiscIndications: before Controlled type 2 breakfast; diabetes mellitus ICD-10 code without E11.9 complication, without long-term current use of insulin metformin ER 500 Take 1 tablet 90 tablet 2 11/07/2019 Active mg 24 hr by mouth daily tabletIndications: with Controlled type 2 breakfast. diabetes mellitus without complication, without long-term current use of insulin pantoprazole 20 mg Take 20 mg by 0 Active EC tablet mouth daily. amLODIPine 2.5 mg Take 1 tablet 90 tablet 1 12/11/2019 Active tabletIndications: by mouth at Essential bedtime. DOSE hypertension, DECREASE. History of hypotension acetaminophen Take 2 tablets 0 02/16/2020 02/16/20 Active (TYLENOL) 325 mg by mouth every 21 tabletIndications: 6 (six) hours Uterovaginal as needed for prolapse, Pain (scale incomplete 1-3). gabapentin 300 mg Take 1 capsule 15 capsule 0 02/16/2020 Active capsuleIndications by mouth 3 : Uterovaginal (three) times prolapse, daily. incomplete telmisartan-hydroc Take 0.5 45 tablet 3 02/22/2020 Active hlorothiazide tablets by 40-12.5 mg per mouth daily. tabletIndications: Essential hypertension telmisartan-hydroc Take 0.5 90 tablet 3 01/18/2020 02/22/20 Discontinued hlorothiazide tablets by 20 (Reor lakhwinder) 40-12.5 mg per mouth daily. tabletIndications: Essential hypertension documented as of this encounter (statuses as of 02/28/2020) Active Problems Problem Noted Date Observation after surgery 02/15/2020 Uterovaginal prolapse, incomplete 01/31/2020 Overview: Added automatically from request for laura ventura [id number] Morbid obesity with body mass index of [...] Added automatically from request for laura whitehead [id number] Diabetes mellitus type 2, controlled, without complica tions 02/04/2017 Essential hypertension 02/04/2017 GERD (gastroesophageal reflux disease) 02/04/2017 documented as of this encounter (statuses as of 02/28/2020) Immunizations Name Administration Dates Next Due Pneumococcal [...] Sign Reading Time Taken Comments Blood Pressure 137/71 02/22/2020 8:26 AM CDT Pulse 82 02/22/2020 8:26 AM CDT Temperature 36.1 C (96.9 F) 02/22/2020 8:26 AM CDT Respiratory Rate - - Oxygen Saturation - - Inhaled Oxygen Concentration - - Weight 119.3 kg (263 lb) 02/22/2020 8:26 AM CDT Height 167.6 cm (5' 6") 02/22/2020 8:26 AM CDT Body Mass Index 42.45 02/22/2020 8:26 AM CDT documented in this encounter Patient Instructions Patient InstructionsDoug Wang MD - 02/22/2020 8:30 AM CDT Patient Education Discharge Instructions for Hypomagnesemia You have been diagnosed with hypomagnesemia. This means you don't haveenough magnesium in your blood. Magnesium is a mineral. It helps your body work normally. It helps you form bones. It helps muscles and nerves work. And it helps enzymes and hormones work. A very low magnesium level can be seriousand lead to seizures and abnormal heart rhythms. And it can lead to heart attack. Other symptoms caninclude: Nausea orvomiting Sleepiness Weakness Personality changes Muscle spasmsortremors Loss of appetite Diet changes You will need to eat more foods that contain magnesium. These include: Dark green, leafy vegetables, such as salad greens, spinach, kale, chard, and collards All nuts and nut butters, including peanuts,almonds, pecans, cashews, brazil nuts, macadamia nuts, peanut butter, and almond butter Mcnairy seeds Pumpkin seeds Milk, chocolate milk (prepared from powder mix) and eggnog Soy products, including tofu, soybeans,and soy milk Beans Halibut Baked potatoes (with skin) Millet, including puffed millet cereal Brown rice, including brown rice cakes Avocado, including guacamole Dried apricots Bananas Oatmeal Bran cereals Chocolate and cocoa powder Meal replacement bars and drinks Other home care Take a magnesium supplement as advised. Have your magnesium levels checked as often as advised. This is important if you are taking a diuretic. This medicine helps flush water from the body. Tell your healthcare provider about all the medicines and herbal supplements you take. This includes prescribed and hkgd-ojr-[id number] medicines. Some of these can lower your magnesium levels. Take all medicines as directed. Take your pulse as often as advised. Call your healthcare provider if your pulse rate is higher than 100beats per minute. Ask if you need to take a calcium supplement. If your magnesium level is low, you may be low in calcium. Follow-up Follow up with your healthcare provider, or as advised. Your healthcare provider will need to watch your condition closely. You may need extra care if you have a health condition that causes your hypomagnesemia. When to call your healthcare provider Call your provider right away or go to the emergency room if you have any of the following: Muscle twitching, spasms, or cramps Fatigue Confusion Loss of consciousness or fainting Dizziness Irregular or fast heartbeat Chest pain or shortness of breath [employer] last reviewed this educational content on 10/21/[id number] [employer]. [address] [place] [address]. All rights reserved. This information is not intended as a substitute for professional medical care. Always follow your healthcare professional's instructions. documented in this encounter Progress Notes Doug Wang MD - 02/22/2020 8:30 AM CDT CC: Chief Complaint Patient presents with Hospital F/U [facility] Nanci Paradise Barros is a 64 year old female who presents for hospital follow-up. Hospital follow-up The patient was admitted to [facility] 02/15/2020-02/16/2020 for elective repair of uterovaginalprolapse with Urologist Dr. Ochoa. The hospital course excerpt from the hospitalist's discharge summary is noted below: " Brief Hospital Course: Note Electronic dictation used for the following 64 year old femaleknown case of abnormal EKG, diabetes mellitus type 2, GERD, essential hypertension, history of diverticulitis, admitted to [facility] afters/p sacrospinous ligament fixation and cystocele repair.Patient is resting at time of my evaluation.Denies any complaints.Denies anychest pain denies any shortness of breath denies any nausea denies any vomiting denies any changes in vision.Patient has history of pelvic organ prolapse now status postsacrospinous ligament fixation and cystocele repair.Patient has full these catheter in place and vagina packing. Monitored over the night and dischagred home second day " Since the hospitalization the patient reports she feels much better. The patient is compliant with the discharge medications prescribed. There has been resolution of her incontinence. Residual symptoms include: Nocturia. The patient is self-monitoring her glucose and the readings have been at goal. The patient is self-monitoring her bp and the readings have been at goal. Upcoming specialist appts: Dr. Ochoa-03/04/2020. She requests refills of telmisartan-HCTZ. She feels it controls her bp well (home readings have been <130/<80). Allergies Allergen Reactions Penicillin Rash and Shortness of Breath Current Outpatient Medications on File Prior to Visit Medication Sig Dispense Refill acetaminophen (TYLENOL) 325 mg tablet Take 2 tablets by mouth every 6 (six) hours as needed for Pain (scale 1-3). gabapentin 300 mg capsule Take 1 capsule by mouth 3 (three) times daily. 15 capsule 0 amLODIPine 2.5 mg tablet Take 1 tablet by mouth at bedtime. DOSE DECREASE. 90 tablet 1 pantoprazole 20 mg EC tablet Take 20 mg by mouth daily. metformin ER 500 mg 24 hr tablet Take 1 tablet by mouth daily with breakfast. 90 tablet 2 ONE TOUCH DELICA 33 gauge Misc Check [...] N/A 03/03/2017 Surgeon: Humaira Monge MD; Location: [facility] OR Location CYSTOCELE REPAIR N/A 02/15/2020 Surgeon: John Ochoa MD; Location: [facility] OR Location ESOPHAGOGASTRODUODENOSCOPY Upper 11/22/2019 Surgeon: Tish Pickering MD; Location: [facility] OR [facility] LEG/ANKLE SURGERY PROC UNLISTED RECTOCELE REPAIR N/A 02/15/2020 Surgeon: John Ochoa MD; Location: [facility] OR [facility] SHOULDER ARTHROSCOPY Right SURGICAL HISTORY OTHER (SHX) Right leg surgery VAGINAL RECONSTRUCTION N/A 02/15/2020 Surgeon: John Ochoa MD; Location: [facility] OR [facility] Family History Problem Relation Age of Onset [...] file Gets together: Not on file Attends druze service: Not on file Active member of [...] domestic abuse or violence. Review of Systems HENT: Negative. Eyes: Negative. Respiratory: Negative. Cardiovascular: Negative. Gastrointestinal: Negative. Genitourinary: Positive for nocturia. Musculoskeletal: Negative. Skin: Negative. Neurological: Negative. Psychiatric/Behavioral: Negative. Endocrine: Endocrine negative Vital signs BP 137/71 | Pulse 82 | Temp 36.1 C (96.9 F) (Tympanic) | Ht 5' 6" (1.676 m) | Wt 263 lb (119.3 kg) | BMI 42.45 kg/m Physical Exam Vitals signs and nursing note reviewed. Constitutional: General: She is not in acute distress. Appearance: She is well-developed. She is obese. Eyes: General: No scleral icterus. Conjunctiva/sclera: Conjunctivae normal. Pupils: Pupils are equal, round, and reactive to light. Neck: Musculoskeletal: Neck supple. Thyroid: No thyromegaly. Cardiovascular: Rate and Rhythm: Normal rate and regular rhythm. Heart sounds: Normal heart sounds. No murmur. No friction rub. No gallop. Pulmonary: Effort: Pulmonary effort is normal. Breath sounds: Normal breath sounds. No wheezing or rales. Abdominal: General: Bowel sounds are normal. There is no distension. Palpations: Abdomen is soft. There is no mass. Tenderness: There is no abdominal tenderness. There is no right CVA tenderness or left CVA tenderness. Musculoskeletal: Right lower leg: No edema. Left lower leg: No edema. Lymphadenopathy: Cervical: No cervical adenopathy. Skin: General: Skin is warm and dry. Coloration: Skin is not pale. Findings: No rash. Neurological: Mental Status: She is alert and oriented to person, place, and time. Psychiatric: Mood and Affect: Mood normal. Behavior: Behavior normal. Thought Content: Thought content normal. Judgment: Judgment normal. LABS: CBC CMP WBC (10*3/L) Date Value 02/16/2020 8.44 NA (mmol/L) Date Value 02/16/2020 140 RBC (10*6/L) Date Value 02/16/2020 3.74 (L) K (mmol/L) Date Value 02/16/2020 4.2 PLT (10*3/L) Date Value 02/16/2020 138 (L) CALCIUM (mg/dL) Date Value 02/16/2020 9.4 HGB (g/dL) Date Value 02/16/2020 10.9 (L) CL (mmol/L) Date Value 02/16/2020 107 HCT (%) Date Value 02/16/2020 33.9 (L) BUN (mg/dL) Date Value 02/16/2020 14 LIPID PANEL CREATININE (mg/dL) Date Value 02/16/2020 0.88 CHOL (mg/dL) Date Value 12/24/2019 185 GLUCOSE (mg/dL) Date Value 02/16/2020 164 (H) LDL CHOL (mg/dL) Date Value 12/24/2019 116 CO2 TOTAL (mmol/L) Date Value 02/16/2020 26 HDL (mg/dL) Date Value 12/24/2019 50 (L) ALBUMIN Date Value Ref Range Status 12/24/2019 4.1 3.5 - 5.0 g/dL Final TRIG (mg/dL) Date Value 12/24/2019 96 T PROTEIN Date Value Ref Range Status 12/24/2019 7.4 6.3 - 8.2 g/dL Final TSH TOTAL BILI Date Value Ref Range Status 12/24/2019 0.4 0.1 - 1.1 mg/dL Final TSH (mIU/L) Date Value 12/24/2019 1.73 No components found for: BILIUNCOM No results found for: BILICONJ ALT(SGPT) Date Value Ref Range Status 02/15/2019 32 9 - 51 U/L Final ALTv Date Value Ref Range Status 12/24/2019 37 (H) 5 - 35 U/L Final AST(SGOT) Date Value Ref Range Status 12/24/2019 31 13 - 40 U/L Final ALK PHOS Date Value Ref Range Status 12/24/2019 69 34 - 122 U/L Final Radiology No final results containing an impression from the past 30 days were found. ASSESSMENT/PLAN Nanci was seen today for hospital f/u. The hospital records in [facility] were reviewed. Diagnoses and all orders for this visit: Hospital discharge follow-up, Status post urogynecologic surgery, History of pelvic organ prolapse, Nocturia She seems to be doing well post-surgery. F/u with Uro-CLINIC CHARGE NURSE was scheduled/planned. Given her c/o nocturia I will check urine studies just to be cautious. - URINE CULTURE; Standing - URINALYSIS; Standing Hypomagnesemia Noted on her hospital labs. I will reassess today. - MAGNESIUM; Standing Postoperative anemia Mild. I will reassess to make sure her H/H is trending in the right direction and I will check ironstudies, B12, and folate. - FERRITIN SERUM; Standing - IRON PANEL; Standing - FOLATE; Standing - VITAMIN B12, LEVEL; Standing - CBC WITH DIFF; Standing Essential hypertension The patient's blood pressure goal is <130/<80. Continue current antihypertensive medication(s). I recommended a low sodium diet/DASH diet along with exercise as part of a heart healthy lifestyle. The patient was instructed to self monitor her blood pressure once-twice daily varying the times when it is checked and to bring the record of readings to each office visit. The patient should follow-up sooner if the blood pressure is trending >/=130/80. An EKG should be done q1-3 years for cardiac surveillance. If not already followed by Cardiology, the patient should see a Saddle Stitch Operator forconsultation if there is a family history of heart disease in a 1st degree relative, if any cardiovascular symptomatology develops, and for HTN that is resistant to treatment. I recommended immediate ER evaluation for acute symptoms such as chest pain, SOB, syncope, etc. The patient was warned aboutthe potential consequences of uncontrolled HTN including heart disease, renal failure, stroke, etc. - telmisartan-hydrochlorothiazide 40-12.5 mg per tablet; Take 0.5 tablets by mouth daily. Plan of care, desired health behaviors, goals, [...] at a future visit. If applicable, the [facility] database was accessed to review any controlled substance prescription claims data. If the patient is taking prescribed medications, the [employer] prescription claims data in [employer] was reviewed to assess patient compliance with the medication treatment plan. COVID-19 precautions given including frequent handwashing, social distancing, cleaning and disinfecting, indications for testing, etc. Follow-up: Return as scheduled. Follow-up sooner if any problems or concerns. Scribe Isabel Honecyutt am scribing for, and in the presence of, Doug Wang MD who performed the services described here-in. Isabel Elizondo, February 22, 2020, 8:44 AM Physician Attestation I, Doug Wang MD, personally performed the services described in this documentation , as scribed by, Isabel Elizondo in my presence and it is both accurate and complete. Doug Wang MD February 22, 2020, 8:44 AM documented in this encounter Plan of Treatment Date Type Specialty Care Team Description 03/04/2020 Office Visit Urology John Ochoa M D [address] [facility] [address] [place] [address] [phone] 06/10/2020 Office Visit Family Medicine Estrada Wang MD [address] [place] [address] [phone] Health Maintenance Due Date Last [...] 02/02/2017 Depression Screening 02/14/2021 02/15/2020 CREATININE (SERUM) 02/24/2021 02/25/2020, 02/16/2020, 01/11/2020, Additional history exists PAP SMEAR 08/17/2021 08/17/2018, 08/17/2018, 05/18/2012 COLONOSCOPY 03/03/2027 03/03/2017 Colorectal Cancer Screening 03/03/2027 HEPATITIS C (HCV) SCREEN Completed 11/16/2018 documented as of this encounter Goals Goal Patient Goal Associated Recent Patient-Stated? Author Type Problems Progress weight down General Yes [place], to 247 lbs Doug Barnes MD by October of 2017 documented as of this encounter Results URINALYSIS (02/25/2020 8:36 AM CDT) Pathologist Sig nature APPEARANCE Clear Clear [facility] COLOR Yellow Yellow [facility] PH 5.0 4.8 - 8.0 [facility] SP GRAVITY 1.016 1.003 - 1.030 [facility] GLU U QUAL Normal Normal [facility] BLOOD 2+ (A) Negative [facility] KETONES Negative Negative [facility] PROTEIN Negative Negative [facility] UROBILIN Normal Normal [facility] BILIRUBIN Negative Negative [facility] NITRITE Negative Negative [facility] LEUK JANEEN 250/uL (A) Negative [facility] RBC/HPF 6 (H) 0 - 3 HPF [facility] WBC/HPF 10 (H) 0 - 5 HPF [facility] BACTERIA Few (A) Negative [facility] MUCOUS Slight (A) Negative LPF [facility] SQ EPITH 6 HPF [facility] Specimen Urine - URINE, CLEAN CATCH Performing Organization Address City/[facility]/Zipcode Phone Number [facility] CLIA: [id number] [place] [address] URINE CULTURE (02/25/2020 8:36 AM CDT) URINE CULTURE 10,000 - 100,000 [facility] CFU/mL mixed aerobic SERVICES organisms - suggests endogenous microbial contamination Specimen Urine - URINE, CLEAN CATCH Performing Organization Address City/[facility]/Zipcode Phone Number [facility] CLIA: [id number] [place] [address] [place] [address] Bl MAGNESIUM (02/25/2020 8:31 AM CDT) Pathologist Sig nature MAGNESIUM 1.9 1.7 - 2.4 mg/dL [facility] Specimen Blood - ARM, LEFT Performing Organization Address City/State/Zipcode Phone Number [facility] CLIA: [id number] [place] [address] CBC WITH DIFF (02/25/2020 8:31 AM CDT) Pathologist Sig nature WBC 5.77 4.30 - 11.10 [facility] 10*3/L [facility] RBC 3.95 3.93 - 5.25 [facility] 10*6/L [facility] HGB 11.4 (L) 11.6 - 15.0 [facility] g/dL [facility] HCT 36.7 35.7 - 45.2 % [facility] MCV 92.9 80.6 - 95.5 fL [facility] MCH 28.9 25.9 - 32.8 pg [facility] MCHC 31.1 (L) 31.6 - 35.1 [facility] g/dL [facility] RDW-SD 45.3 39.0 - 49.9 fL [facility] RDW-CV 13.2 12.0 - 15.5 % [facility] PLT 198 166 - 358 [facility] 10*3/L [facility] MPV 9.1 (L) 9.5 - 12.9 fL [facility] NRBC/100 WBC 0.0 0.0 - 10.0 /100 [facility] WBCs [facility] NRBC x10^3 <0.01 10*3/L [facility] GRAN MAT (NEUT) % 61.4 % [facility] IMM GRAN % 0.50 % [facility] LYMPH % 25.0 % [facility] MONO % 8.3 % [facility] EOS % 4.3 % [facility] BASO % 0.5 % [facility] GRAN MAT x10^3(ANC) 3.54 1.88 - 7.09 [facility] 10*3/uL HOSPITAL LAB[facility]ORY IMM GRAN x10^3 0.03 0.00 - 0.06 [facility] 10*3/uL [facility]ITAL [facility] LYMPH x10^3 1.44 1.32 - 3.29 [facility] 10*3/uL [facility] MONO x10^3 0.48 0.33 - 0.92 [facility] 10*3/uL [facility]ITAL [facility] EOS x10^3 0.25 0.03 - 0.39 [facility] 10*3/uL [facility] BASO x10^3 0.03 0.01 - 0.07 [facility] 10*3/uL [facility] Specimen Blood - ARM, LEFT Performing Organization Address City/[facility]/Zipcode Phone Number [facility] CLIA: [id number] [place] [address] [place] [address] Drive VITAMIN B12, LEVEL (02/25/2020 8:31 AM CDT) Pathologist Sig nature VIT B12 385 240 - 930 pg/mL [facility] Specimen Blood - ARM, LEFT Narrative Performed At Biotin has been reported to cause a positive bias, int erpret [facility] results relative to patient's use of biotin. Performing Organization Address [facility] Phone Number [facility] CLIA: [id number] [place] [address] [place] [address] FOLATE (02/25/2020 8:31 AM CDT) FOLATE SER 8.8Comment: Biotin 3.0 - 20.0 [facility] has been reported ng/mL SERVICES to cause a positive bias, interpret results relative to patient's use of biotin. Specimen Blood - ARM, LEFT Performing Organization Address City/[facility]/Zipcode Phone Number [facility] CLIA: [id number] [place] [address] [phone] [address] [facility] IRON PANEL (02/25/2020 8:31 AM CDT) Pathologist Sig nature IRON 51 50 - 160 ug/dL [facility] TIBC 283 250 - 410 ug/dL [facility] % FE SAT 18 (L) 20 - 50 % [facility] Specimen Blood - ARM, LEFT Performing Organization Address City/State/Zipcode Phone Number [facility] CLIA: [id number] [place] [address] FERRITIN SERUM (02/25/2020 8:31 AM CDT) Pathologist Sig nature FERRITIN 173.0 11.0 - 264.0 ng/mL [facility] Specimen Blood - ARM, LEFT Narrative Performed At Biotin has been reported to cause a negative [facility] bias, interpret results relative to patient's use of biotin. Performing Organization Address City/State/Zipcode Phone Number [facility] CLIA: [id number] [place] [address] documented in this encounter Visit Diagnoses Diagnosis Hospital discharge follow-up - Primary Other follow-up examination Nocturia Hypomagnesemia Disorders of magnesium metabolism Postoperative anemia Anemia, unspecified Essential hypertension Unspecified essential hypertension documented in this encounter Insurance Payer Benefit Plan / Subscriber ID Effective Phone Address T ype Group Dates [facility] [id number] 2019-Antony sheikh [facility]ly [facility] - MEDICARE HMO MANAGED MEDICARE ADVANTAGE documented as of this encounter
--- OUTSIDE RECORDS SUMMARY | 2020-03-18 05:53 | XMS REPORT | Summary of Care ---
:1955 Author Organization [facility] - [facility] Address [address] [place] [id number] Care Team Providers Name Role Phone Molly Wang MD Primary Care Provider MD Capo Unavailable Sitter Unavailable Davis Dukes MD Unavailable Keith Naqvi Unavailable Reason for Visit Reason Comments Hospital F/U Encounter Details Date Type Department Care Team Description 02/22/2020 Office Visit [facility] ital discharge follow-up (Primary Dx); Medicine - Leander Barnes MD Nocturia; [address] [place] [address] DR [address]; [place], [place] Postoperative anemia; [place] [address] Essential hypertension [id number] Allergies Active Allergy Reactions [...] Added automatically from request for laura ventura [id number] Morbid obesity with body mass index of [...] Added automatically from request for laura whitehead [id number] Diabetes mellitus type 2, controlled, without complica [...] macadamia nuts, peanut butter, and almond butter [place] seeds Pumpkin seeds Milk, chocolate milk (prepared [...] supplements you take. This includes prescribed and upch-jal-oxcrskq medicines. Some of these can lower your [...] heartbeat Chest pain or shortness of breath Hatch last reviewed this educational content on 10/21/201619999338-3347 [employer]. [address] [place] [address]. All rights reserved. This information is not intended as a substitute for professional medical care. Always follow your healthcare professional's instructions. documented in this encounter Progress Notes Doug Wang MD - 02/22/2020 8:30 AM CDT CC: Chief Complaint Patient presents with Hospital F/U [facility] Nanci Paradise Barros is a 64 year old female who presents for hospital follow-up. Hospital follow-up The patient was admitted to [facility] 02/15/2020-02/16/2020 for elective repair of uterovaginalprolapse with Urologist Dr. Ochoa. The hospital course excerpt from the hospitalist's discharge summary is noted below: " Brief Hospital Course: Note Electronic dictation used for the following 64 year old femaleknown case of abnormal EKG, diabetes mellitus type 2, GERD, essential hypertension, history of diverticulitis, admitted to [facility] afters/p sacrospinous ligament fixation and cystocele repair.Patient [...] N/A 03/03/2017 Surgeon: Humaira Monge MD; Location: [facility] OR Location CYSTOCELE REPAIR N/A 02/15/2020 Surgeon: John Ochoa MD; Location: [facility] OR Location ESOPHAGOGASTRODUODENOSCOPY Upper 11/22/2019 Surgeon: Tish Pickering MD; Location: [facility] OR [facility] LEG/ANKLE SURGERY PROC UNLISTED RECTOCELE REPAIR N/A 02/15/2020 Surgeon: John Ochoa MD; Location: [facility] OR [facility] SHOULDER ARTHROSCOPY Right SURGICAL HISTORY OTHER (SHX) Right leg surgery VAGINAL RECONSTRUCTION N/A 02/15/2020 Surgeon: John Ochoa MD; Location: [facility] [place] OR [facility] Family History Problem Relation Age of Onset [...] file Gets together: Not on file Attends jainism service: Not on file Active member of [...] for hospital f/u. The hospital records in [facility] were reviewed. Diagnoses and all orders for this visit: Hospital discharge follow-up, Status post urogynecologic surgery, History of pelvic organ prolapse, Nocturia She seems to be doing well post-surgery. 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 Given her c/o nocturia I [...] by Cardiology, the patient should see a Network Associate forconsultation if there is a family history [...] at a future visit. If applicable, the [facility] database was accessed to review any controlled substance prescription claims data. If the patient is taking prescribed medications, the [employer] prescription claims data in [place] was reviewed to assess patient compliance with the medication treatment plan. COVID-19 precautions given including frequent handwashing, social distancing, cleaning and disinfecting, indications for testing, etc. Follow-up: Return as scheduled. Follow-up sooner if any problems or concerns. Scribe Isabel Honeycutt am scribing for, and in the presence [...] Visit Urology John Ochoa M D [address] [facility] [address] [place] [address] [phone] 06/10/2020 Office Visit Family Medicine Estrada Wang MD [address] [place] [address] [phone] Health Maintenance Due Date Last [...] Type Problems Progress weight down General Yes Swisher, to 247 lbs Doug Barnes MD by October of 2017 documented as of this encounter Results URINALYSIS (02/25/2020 8:36 AM CDT) Pathologist Sig nature APPEARANCE Clear Clear [facility] COLOR Yellow Yellow [facility] PH 5.0 4.8 - 8.0 [facility] SP GRAVITY 1.016 1.003 - 1.030 [facility] GLU U QUAL Normal Normal [facility] BLOOD 2+ (A) Negative [facility] KETONES Negative Negative [facility] PROTEIN Negative Negative [facility] UROBILIN Normal Normal [facility] BILIRUBIN Negative Negative [facility] NITRITE Negative Negative [facility] LEUK JANEEN 250/uL (A) Negative [facility] RBC/HPF 6 (H) 0 - 3 HPF [facility] WBC/HPF 10 (H) 0 - 5 HPF [facility] BACTERIA Few (A) Negative [facility] MUCOUS Slight (A) Negative LPF [facility] SQ EPITH 6 HPF [facility] Specimen Urine - URINE, CLEAN CATCH Performing Organization Address City/[facility]/Zipcode Phone Number [facility] CLIA: [id number] [place] [address] URINE CULTURE (02/25/2020 8:36 AM CDT) URINE CULTURE 10,000 - 100,000 [facility]ORATORY CFU/mL mixed aerobic SERVICES organisms - suggests endogenous microbial contamination Specimen Urine - URINE, CLEAN CATCH Performing Organization Address City/[facility]/Zipcode Phone Number [facility] LABORATORY SERVICES CLIA: [id number] [place] [address] [place] [address] Bl MAGNESIUM (02/25/2020 8:31 AM CDT) Pathologist Sig nature MAGNESIUM 1.9 1.7 - 2.4 mg/dL [facility] Specimen Blood - ARM, LEFT Performing Organization Address City/State/Zipcode Phone Number [facility] CLIA: [id number] [place] [address] CBC WITH DIFF (02/25/2020 8:31 AM CDT) Pathologist Sig nature WBC 5.77 4.30 - 11.10 [facility] 10*3/L [facility] RBC 3.95 3.93 - 5.25 [facility] 10*6/L [facility] HGB 11.4 (L) 11.6 - 15.0 [facility] g/dL [facility] HCT 36.7 35.7 - 45.2 % [facility] MCV 92.9 80.6 - 95.5 fL [facility] MCH 28.9 25.9 - 32.8 pg [facility] MCHC 31.1 (L) 31.6 - 35.1 [facility] g/dL [facility] RDW-SD 45.3 39.0 - 49.9 fL [facility] RDW-CV 13.2 12.0 - 15.5 % [facility] PLT 198 166 - 358 [facility] 10*3/L [facility] MPV 9.1 (L) 9.5 - 12.9 fL [facility] NRBC/100 WBC 0.0 0.0 - 10.0 /100 [facility] WBCs [facility] NRBC x10^3 <0.01 10*3/L [facility] GRAN MAT (NEUT) % 61.4 % [facility] IMM GRAN % 0.50 % [facility] LYMPH % 25.0 % [facility] MONO % 8.3 % [facility] EOS % 4.3 % [facility] BASO % 0.5 % [facility] GRAN MAT x10^3(ANC) 3.54 1.88 - 7.09 [facility] 10*3/uL HOSPITAL LABORATORY IMM GRAN x10^3 0.03 0.00 - 0.06 [facility] 10*3/uL HOSPITAL LABORATORY LYMPH x10^3 1.44 1.32 - 3.29 [facility] 10*3/uL HOSPITAL LABORATORY MONO x10^3 0.48 0.33 - 0.92 [facility] 10*3/uL HOSPITAL LABORATORY EOS x10^3 0.25 0.03 - 0.39 [facility] 10*3/uL HOSPITAL LABORATORY BASO x10^3 0.03 0.01 - 0.07 [facility] 10*3/uL [facility] Specimen Blood - ARM, LEFT Performing Organization Address City/[facility]/Zipcode Phone Number [facility] CLIA: [id number] [place] [address] [place] [address] Drive VITAMIN B12, LEVEL (02/25/2020 8:31 AM CDT) Pathologist Sig nature VIT B12 385 240 - 930 pg/mL [facility] LABORATORY SERVICES Specimen Blood - ARM, LEFT Narrative Performed At Biotin has been reported to cause a positive bias, int erpret [facility]ORY SERVICES results relative to patient's use of biotin. Performing Organization Address [facility]ow[facility] Phone Number [facility]ATORY SERVICES CLIA: [id number] [place] [address] [place] [address] FOLATE (02/25/2020 8:31 AM CDT) FOLATE SER 8.8Comment: Biotin 3.0 - 20.0 [facility]ORY has been reported ng/mL SERVICES to cause a positive bias, interpret results relative to patient's use of biotin. Specimen Blood - ARM, LEFT Performing Organization Address City/[facility]/Zipcode Phone Number [facility] SERVICES CLIA: [id number] [place] [address] [phone] [facility] IRON PANEL (02/25/2020 8:31 AM CDT) Pathologist Sig nature IRON 51 50 - 160 ug/dL [facility] TIBC 283 250 - 410 ug/dL [facility] % FE SAT 18 (L) 20 - 50 % [facility] Specimen Blood - ARM, LEFT Performing Organization Address City/State/Zipcode Phone Number [facility] CLIA: [id number] [place] [address] FERRITIN SERUM (02/25/2020 8:31 AM CDT) Pathologist Sig nature FERRITIN 173.0 11.0 - 264.0 ng/mL [facility] Specimen Blood - ARM, LEFT Narrative Performed At Biotin has been reported to cause a negative [facility] bias, interpret results relative to patient's use of biotin. Performing Organization Address City/State/Zipcode Phone Number [facility] CLIA: [id number] [place] [address] documented in this encounter Visit Diagnoses Diagnosis Hospital discharge follow-up - Primary Other follow-up examination Nocturia Hypomagnesemia Disorders of magnesium metabolism Postoperative anemia Anemia, unspecified Essential hypertension Unspecified essential hypertension documented in this encounter Insurance Payer Benefit Plan / Subscriber ID Effective Phone Address T ype Group Dates [facility] [id number] 2019-Antony sheikh [facility] - MEDICARE HMO MANAGED MEDICARE ADVANTAGE documented as of this encounter
--- OUTSIDE RECORDS SUMMARY | 2020-03-18 05:53 | XMS REPORT | Summary of Care ---
:1955 Author Organization [facility] Address [address] [place] [address] Care Team Providers Name Role Phone Molly Wang MD Primary Care Provider MD Capo Unavailable Sitter Unavailable Davis Dukes MD Unavailable Keith Naqvi Unavailable Reason for Visit Reason Comments Body Aches started last night Fatigue started last night Encounter Details Date Type Department Care Team Description 03/15/2020 Urgent Care [facility] Elvie Garcia, CELLULAR EQUIPMENT INSTALLER [address] [facility] [address] [place] [address] Body aches (Primary Dx); Medicine - [place] Provider, [facility] Fatigue, unspecified type; [address] [facility] Exposure t o COVID-[address] [place] [address] Allergies Active Allergy Reactions Severity Noted Date Comments Penicillin Rash, Shortness of Breath 02/02/2017 documented as of this encounter (statuses as of 03/15/2020) Medications Medication Sig Dispensed Refills Start Date [...] as of this encounter (statuses as of 03/15/2020) Active Problems Problem Noted Date Observation after surgery 02/15/2020 Uterovaginal prolapse, incomplete 01/31/2020 Overview: Added automatically from request for laura ventura [id number] Morbid obesity with body mass index of [...] Added automatically from request for laura whitehead [id number] Diabetes mellitus type 2, controlled, without complica tions 02/04/2017 Essential hypertension 02/04/2017 GERD (gastroesophageal reflux disease) 02/04/2017 documented as of this encounter (statuses as of 03/15/2020) Immunizations Name Administration Dates Next Due Pneumococcal [...] been in contact with No / Unsure 03/04/2020 7:47 AM CDT someone who was confirmed or suspected to have Coronavirus / COVID-19? documented as of this encounter Last Filed Vital Signs Vital Sign Reading Time Taken Comments Blood Pressure 148/83 03/15/2020 1:55 PM CDT Pulse 93 03/15/2020 1:52 PM CDT Temperature 37.3 C (99.2 F) 03/15/2020 1:52 PM CDT Respiratory Rate 18 03/15/2020 1:52 PM CDT Oxygen Saturation 98% 03/15/2020 1:52 PM CDT Inhaled Oxygen Concentration - - Weight 117.9 kg (260 lb) 03/15/2020 1:52 PM CDT Height 168.9 cm (5' 6.5") 03/15/2020 1:52 PM CDT Body Mass Index 41.34 03/15/2020 1:52 PM CDT documented in this encounter Patient Instructions Patient InstructionsGrElvie carlos FNP - 03/15/2020 2:20 PM CDT1. Body aches 2. Fatigue, unspecified type - POCT FLU A AND B (MOLECULAR) - NEGATIVE - counseled patient about at home care: Tylenol and Ibuprofen as needed for pain and fever Rest Raise head of bed Increase fluids -HYDRATION WITH CLEAR LIQUIDS Vitamin C Warm salt water gargles or CEPACOL sprays for sore throat. Breath humidified air (steam) SIPPING WARM DRINKS may help. Warm Compresses (if sinus pressure or pain). HAND HYGIENE (with alcohol gels or hand washing) Advised to take Tylenol or Ibuprofen as per label recommendation as needed for pain or fever Honey 10mL (2 teaspoons) has been shown to relieve cough at bedtime. Dark Chocolate helps with cough (xanthenes) Avoidance of cigarette smoke, alcoholic drinks, diving into deep water and air travel is useful. Irrigate your nose with normal saline moisture spray 2 or 3 times a day. You may use a spray, squeeze bottle, or nasal pot. ? Nasal Congestion (Stopped Up): Oxymetazoline HCl (Afrin, 4-Way, & more) 0.05 % nasal spray, 1 spray each nostril at bedtime. Limit to 5 nights. If use twice a day then limit to 3 days. - Advised to follow up with PCP, return to Urgent Care, or go to the nearest Emergency Department sooner for any new, worsening, persistent, or concerning symptoms. 3. Exposure to COVID-19 virus - COVID-19 (PCR MOLECULAR TESTING); Future - COVID-19 (PCR MOLECULAR TESTING) - Quarantine until your COVID results are back Criteria met - Covid testing - pending. This test can take 2-3 days to be resulted. While the test is pending...Please socially isolate your self - do not go out to stores or out in public. We will contact you once we have the results. If you are negative - continue with symptomatic treatment. (see below) Patients who have positive results will be contacted by the health department to enforce quarantine measures and for additional community contact tracing. The Infection Control Department will also undertake evaluation of exposures in our healthcare facility. If symptoms worsen - please call your Primary Care Doctor - do not go into the clinic. Call first. Educated on the following at home care: - Discussed likely viral diagnosis and treatment plan with pt. - pt advised on frequent effective handwashing - pt advised to increase fluid intake , stay hydrated and get plenty of rest. - advised to have the pt take OTC to treat symptoms. - Pt advised to administer Tylenol as per label recommendation as needed for pain or fever - Cover mouth when coughing, wear mask - Stay in your own bedroom and use a separate bathroom - Keep at least 6 feet from you and others - Avoid sharing personal household items, dishes, glasses, cups, towels -Clean high traffic/touch areas daily. These include but not limited to: doorknobs, refrigerator/cabinet handles, phones, keyboards, tablets, light switches. - AVS and Written/handout materials appropriate to problem and teaching provided. - advised to go to the nearest Emergency Department sooner for any new, worsening, persistent, or concerning symptoms - Patient verbalized understanding of all instructions - Follow-up with PCP as needed, if no improvement EDUCATION: Handouts given: Patient educated on plan of care for visit, swabbing technique,risks and benefits of test and lengthof time to receive results. Verbal consent obtained to perform test. CDC Fact Sheet for patients nCoV Diagnostic Panel dated 08/05/2019 provided. "What to do if you are sick with COVID-19" CDC information guide reviewed with the patient and handout given to patient Education given to self quarantine until results are back. Will notify patient with results. Patient states understanding and all questions answered. Plan of care, goals and medications discussed with patient. Patient voices understanding. Barriers to care: none Ability to manage care: good FOLLOW UP: Pt advised to call 911 or go to the nearest Emergency Department sooner for any worsening, persistent, or concerning symptoms ER precautions given Plan of care, desired health behaviors, goals, and medication discussed with patient. Education resources provided and reviewed with AVS. Patient/guardian/family verbalized understanding & agrees to plan of care. Urgent Care precautions and follow up : 1. Return to clinic if your symptoms should worsen or fail to improve within 72 hours. 2. The care provided in the urgent care was for acute problems only. 3. You should follow up with your primary care provider within 72 hours. 4. Fill and take all your medications as prescribed. 5. Make sure you are staying adequately hydrated. MAY FOLLOW-UP WITH A PROVIDER OF YOUR CHOICE, SUCH : 1. A PHYSICIAN OF YOUR CHOICE OR, IF YOU WISH TO FOLLOW-UP WITHIN THE [facility], MAY TRY THESE OPTIONS (CLINIC APPOINTMENTS AVAILABLE ON [id number] BASIS): 1. SCHEDULE AN APPOINTMENT ONLINE AT [facility] 2. OR CALL THE [facility] ACCESS CENTER AT OR 3. OR CALL YOUR [facility] PHYSICIAN'S OFFICE DIRECTLY IF YOU ARE ALREADY AN ESTABLISHED [facility] PATIENT. After hours care nurse access center available by calling [phone] 24 hours 7 days per week. Elvie WANG [facility] documented in this encounter Progress Notes Elvie Mcdermott FNP - 03/15/2020 2:20 PM CDT Cc: Chief Complaint Patient presents with Body Aches started last night Fatigue started last night Nanci Barros is a 64 year old female presents with fatigue and body aches. She took Nyquil last night which helped her sleep. Denies any fever or chills. Eating/drinking okay. Denies any sick contacts. Fatigue This is a new problem. The current episode started yesterday. The problem occurs constantly. The problem has been unchanged. Associated symptoms include fatigue, a fever and myalgias. Pertinent negatives include no abdominal pain, arthralgias, change in bowel habit, chest pain, chills, congestion, coughing, diaphoresis, headaches, joint swelling, nausea, neck pain, numbness, rash, sore throat, urinary symptoms, vertigo, visual change, vomiting or weakness. Nothing aggravates the symptoms. Treatmentstried: Nquil. The treatment provided moderate relief. Allergies Nanci is allergic to penicillin. Medications Outpatient Medications Prior to Visit Medication Sig Dispense Refill telmisartan-hydrochlorothiazide 40-12.5 mg per tablet Take 0.5 tablets by mouth daily. 45 tablet3 acetaminophen (TYLENOL) 325 mg tablet Take 2 [...] N/A 03/03/2017 Surgeon: Humaira Monge MD; Location: [facility] OR [facility] CYSTOCELE REPAIR N/A 02/15/2020 Surgeon: John Ochoa MD; Location: [facility] ESOPHAGOGASTRODUODENOSCOPY Upper 11/22/2019 Surgeon: Tish Pickering MD; Location: [facility] OR [facility] LEG/ANKLE SURGERY PROC UNLISTED RECTOCELE REPAIR N/A 02/15/2020 Surgeon: John Ochoa MD; Location: [facility] SHOULDER ARTHROSCOPY Right SURGICAL HISTORY OTHER (SHX) Right leg surgery VAGINAL RECONSTRUCTION N/A 02/15/2020 Surgeon: John Ochoa MD; Location: [facility] Social History Socioeconomic History Marital status: Spouse [...] file Gets together: Not on file Attends temple service: Not on file Active member of [...] NoFHx Psychiatry NoFHx Review of Systems Constitutional: Positive for fatigue and fever. Negative for activity change, appetite change, chills and diaphoresis. HENT: Negative for congestion, rhinorrhea and sore throat. Respiratory: Negative for cough, shortness of breath, wheezing and stridor. Cardiovascular: Negative for chest pain. Gastrointestinal: Negative for abdominal pain, change in bowel habit, diarrhea, nausea and vomiting. Musculoskeletal: Positive for myalgias. Negative for arthralgias, joint swelling and neck pain. Skin: Negative for rash. Neurological: Negative for dizziness, vertigo, weakness, numbness and headaches. All other systems reviewed and are negative. Vital Signs BP (!) 148/83 | Pulse 93 | Temp 37.3 C (99.2 F) (Oral) | Resp 18 | Ht 5' 6.5" (1.689 m) | Wt 260 lb (117.9 kg) | SpO2 98% | BMI 41.34 kg/m Physical Exam Vitals signs and nursing note reviewed. Constitutional: Appearance: She is well-developed. HENT: Head: Normocephalic and atraumatic. Right Ear: Tympanic membrane, ear canal and external ear normal. Left Ear: Tympanic membrane, ear canal and external ear normal. Nose: Nose normal. Mouth/Throat: Lips: [place]. Mouth: Mucous membranes are moist. Pharynx: Oropharynx is clear. No pharyngeal swelling, oropharyngeal exudate, posterior oropharyngeal erythema or uvula swelling. Tonsils: No tonsillar exudate or tonsillar abscesses. 1+ on the right. 1+ on the left. Eyes: Conjunctiva/sclera: Conjunctivae normal. Neck: Musculoskeletal: Normal range of motion and neck supple. Cardiovascular: Rate and Rhythm: Normal rate and regular rhythm. Heart sounds: Normal heart sounds. No murmur. No friction rub. No gallop. Pulmonary: Effort: Pulmonary effort is normal. No accessory muscle usage or respiratory distress. Breath sounds: Normal breath sounds. No decreased breath sounds, wheezing, rhonchi or rales. Musculoskeletal: Normal range of motion. Skin: General: Skin is warm and dry. Findings: No rash. Neurological: Mental Status: She is alert and oriented to person, place, and time. Psychiatric: Behavior: Behavior normal. Assessment/Plan Nanci Barros is a 64 year old female presents with fatigue and body aches. 1. Body aches 2. Fatigue, unspecified type - POCT FLU A AND B (MOLECULAR) - NEGATIVE - counseled patient about at home care: Tylenol and Ibuprofen as needed for pain and fever Rest Raise head of bed Increase fluids -HYDRATION WITH CLEAR LIQUIDS Vitamin C Warm salt water gargles or CEPACOL sprays for sore throat. Breath humidified air (steam) SIPPING WARM DRINKS may help. Warm Compresses (if sinus pressure or pain). HAND HYGIENE (with alcohol gels or hand washing) Advised to take Tylenol or Ibuprofen as per label recommendation as needed for pain or fever Honey 10mL (2 teaspoons) has been shown to relieve cough at bedtime. Dark Chocolate helps with cough (xanthenes) Avoidance of cigarette smoke, alcoholic drinks, diving into deep water and air travel is useful. Irrigate your nose with normal saline moisture spray 2 or 3 times a day. You may use a spray, squeeze bottle, or nasal pot. ? Nasal Congestion (Stopped Up): Oxymetazoline HCl (Afrin, 4-Way, & more) 0.05 % nasal spray, 1 spray each nostril at bedtime. Limit to 5 nights. If use twice a day then limit to 3 days. - Advised to follow up with PCP, return to Urgent Care, or go to the nearest Emergency Department sooner for any new, worsening, persistent, or concerning symptoms. 3. Exposure to COVID-19 virus - COVID-19 (PCR MOLECULAR TESTING); Future - COVID-19 (PCR MOLECULAR TESTING) - Quarantine until your COVID results are back Criteria met - Covid testing - pending. This test can take 2-3 days to be resulted. While the test is pending...Please socially isolate your self - do not go out to stores or out in public. We will contact you once we have the results. If you are negative - continue with symptomatic treatment. (see below) Patients who have positive results will be contacted by the health department to enforce quarantine measures and for additional community contact tracing. The Infection Control Department will also undertake evaluation of exposures in our healthcare facility. If symptoms worsen - please call your Primary Care Doctor - do not go into the clinic. Call first. Educated on the following at home care: - Discussed likely viral diagnosis and treatment plan with pt. - pt advised on frequent effective handwashing - pt advised to increase fluid intake , stay hydrated and get plenty of rest. - advised to have the pt take OTC to treat symptoms. - Pt advised to administer Tylenol as per label recommendation as needed for pain or fever - Cover mouth when coughing, wear mask - Stay in your own bedroom and use a separate bathroom - Keep at least 6 feet from you and others - Avoid sharing personal household items, dishes, glasses, cups, towels -Clean high traffic/touch areas daily. These include but not limited to: doorknobs, refrigerator/cabinet handles, phones, keyboards, tablets, light switches. - AVS and Written/handout materials appropriate to problem and teaching provided. - advised to go to the nearest Emergency Department sooner for any new, worsening, persistent, or concerning symptoms - Patient verbalized understanding of all instructions - Follow-up with PCP as needed, if no improvement EDUCATION: Handouts given: Patient educated on plan of care for visit, swabbing technique,risks and benefits of test and lengthof time to receive results. Verbal consent obtained to perform test. CDC Fact Sheet for patients nCoV Diagnostic Panel dated 08/05/2019 provided. "What to do if you are sick with COVID-19" CDC information guide reviewed with the patient and handout given to patient Education given to self quarantine until results are back. Will notify patient with results. Patient states understanding and all questions answered. Plan of care, goals and medications discussed with patient. Patient voices understanding. Barriers to care: none Ability to manage care: good FOLLOW UP: Pt advised to call 911 or go to the nearest Emergency Department sooner for any worsening, persistent, or concerning symptoms ER precautions given Plan of care, desired health behaviors, goals, and medication discussed with patient. Education resources provided and reviewed with AVS. Patient/guardian/family verbalized understanding & agrees to plan of care. Urgent Care precautions and follow up : 1. Return to clinic if your symptoms should worsen or fail to improve within 72 hours. 2. The care provided in the urgent care was for acute problems only. 3. You should follow up with your primary care provider within 72 hours. 4. Make sure you are staying adequately hydrated. MAY FOLLOW-UP WITH A PROVIDER OF YOUR CHOICE, SUCH : 1. A PHYSICIAN OF YOUR CHOICE OR, IF YOU WISH TO FOLLOW-UP WITHIN THE [facility], MAY TRY THESE OPTIONS (CLINIC APPOINTMENTS AVAILABLE ON [id number] BASIS): 1. SCHEDULE AN APPOINTMENT ONLINE AT [facility] 2. OR CALL THE [facility] ACCESS CENTER AT OR 3. OR CALL YOUR [facility] PHYSICIAN'S OFFICE DIRECTLY IF YOU ARE ALREADY AN ESTABLISHED [facility] PATIENT. After hours care nurse access center available by calling [phone] 24 hours 7 days per week. Elvie WANG [facility] documented in this encounter Plan of Treatment Date Type Specialty Care Team Description 04/22/2020 Office Visit Urology John Ochoa M D [address] [facility] [address] [place] [address] [phone] 06/10/2020 Office Visit Family Medicine Estrada Wang MD [address] [place] [phone] Name Type Priority Associated Diagnoses Order S chedule COVID-19 (PCR MOLECULAR LAB Routine Exposure to COVID -19 Expected: 03/15/2020, TESTING) virus Expires: 2020 Health Maintenance Due Date Last [...] 02/02/2017 URINE MICROALBUMIN 12/23/2020 12/24/2019, 10/03/2018, 02/02/2017 CREATININE (SERUM) 02/24/2021 02/25/2020, 02/16/2020, 01/11/2020, Additional history exists Depression Screening 03/04/2021 03/04/2020 PAP SMEAR 08/17/2021 08/17/2018, 08/17/2018, 05/18/2012 COLONOSCOPY 03/03/2027 03/03/2017 Colorectal Cancer Screening 03/03/2027 HEPATITIS C (HCV) SCREEN Completed 11/16/2018 documented as of this encounter Goals Goal Patient Goal Associated Recent Patient-Stated? Author Type Problems Progress weight down General Yes [place], to 247 lbs Doug Barnse MD by October of 2017 documented as of this encounter Procedures Procedure Name Priority Date/Time Associated Diagnosis Comme nts POCT FLU A AND B Routine 03/15/2020 2:19 PM Body aches Resu lts for this (MOLECULAR) CDT procedure are i n the results section. documented in this encounter Results POCT FLU A AND B (MOLECULAR) (03/15/2020 2:19 PM CDT) Pathologist Sig nature POCT INFLUENZA A negative Negative - Negative POCT INFLUENZA B negative Negative - Negative Specimen Swab documented in this encounter Visit Diagnoses Diagnosis Body aches - Primary Generalized pain Fatigue, unspecified type Exposure to COVID-19 virus documented in this encounter Additional Health Concerns Infection Onset Date Last Indicated Resolved Time COVID-19 Rule Out 03/15/2020 03/15/2020 documented as of this encounter Insurance Payer Benefit Plan / Subscriber ID Effective Phone Address T ype Group Dates [facility] [id number] 2019-Antony sheikh [facility] - MEDICARE nt O MANAGED MEDICARE ADVANTAGE documented as of this encounter
--- OUTSIDE RECORDS SUMMARY | 2020-03-18 05:53 | XMS REPORT | Summary of Care ---
:1955 [facility] Address [address] [place] [address] Care Team Providers Name Role Phone Molly Wang MD Primary Care Provider MD Capo Unavailable Sitter Unavailable Davis Dukes MD Unavailable Keith Naqvi Unavailable Reason for Visit Reason Comments Hospital F/U Encounter Details Date Type Department Care Team Description 02/22/2020 Office Visit [facility] Family Doug Wang ntgriselda hypertension (Primary Dx); Medicine - Leander Barnes MD Hospital discharge follow-up; [address] [place] [address] DR [address]; Drive [place], [place] Hypomagnesemia; [place] [address] Postoperative anemia [id number] Allergies Active Allergy Reactions Severity Noted [...] Added automatically from request for laura whitehead [id number] Morbid obesity with body mass index of [...] Added automatically from request for laura whitehead [id number] Diabetes mellitus type 2, controlled, without complica [...] macadamia nuts, peanut butter, and almond butter Kitt[place] seeds Pumpkin seeds Milk, chocolate milk (prepared [...] supplements you take. This includes prescribed and subb-xqf-odqsjum medicines. Some of these can lower your [...] heartbeat Chest pain or shortness of breath Mamba last reviewed this educational content on 10/21/201619993390-5037 [employer]. [address] [place] [address] 61890. All rights reserved. This information is not intended as a substitute for professional medical care. Always follow your healthcare professional's instructions. documented in this encounter Progress Notes Doug Wang MD - 02/22/2020 8:30 AM CDT CC: Chief Complaint Patient presents with Hospital F/U [facility] Nanci Barros is a 64 year old female who presents for hospital follow-up. Hospital follow-up The patient was [facility]15[facility]2020-02/16/2020 for elective repair of uterovaginalprolapse with Urologist Dr. Ochoa. The hospital course excerpt from the hospitalist's discharge summary is noted below: " Brief Hospital Course: Note Electronic dictation used for the following 64 year old femaleknown case of abnormal EKG, diabetes mellitus type 2, GERD, essential hypertension, history of diverticulitis, admitted to [facility] afters/p sacrospinous ligament fixation and cystocele repair.Patient [...] N/A 03/03/2017 Surgeon: Humaira Monge MD; Location: [facility] OR Location CYSTOCELE REPAIR N/A 02/15/2020 Surgeon: John Ochoa MD; Location: [facility] OR Location ESOPHAGOGASTRODUODENOSCOPY Upper 11/22/2019 Surgeon: Tish Pickering MD; Location: [facility] OR [facility] LEG/ANKLE SURGERY PROC UNLISTED RECTOCELE REPAIR N/A 02/15/2020 Surgeon: John Ochoa MD; Location: [facility] OR [facility] SHOULDER ARTHROSCOPY Right SURGICAL HISTORY OTHER (SHX) Right leg surgery VAGINAL RECONSTRUCTION N/A 02/15/2020 Surgeon: John Ochoa MD; Location: [facility] OR [facility] Family History Problem Relation Age of Onset [...] file Gets together: Not on file Attends lutheran service: Not on file Active member of [...] for hospital f/u. The hospital records in [facility] were reviewed. Diagnoses and all orders for this visit: Hospital discharge follow-up, Status post urogynecologic surgery, History of pelvic organ prolapse, Nocturia She seems to be doing well post-surgery. F/u with Uro-COMPOUNDING ASSISTANT was scheduled/planned. Given her c/o nocturia I [...] by Cardiology, the patient should see a Packer Operator Automatic forconsultation if there is a family history [...] at a future visit. If applicable, the [facility] database was accessed to review any controlled substance prescription claims data. If the patient is taking prescribed medications, the [employer] prescription claims data in Next[employer] was reviewed to assess patient compliance with the medication treatment plan. COVID-19 precautions given including frequent handwashing, social distancing, cleaning and disinfecting, indications for testing, etc. Follow-up: Return as scheduled. Follow-up sooner if any problems or concerns. Scribe Attestation Isabel Keller , debbie scribing for, and in the presence of, [...] Visit Urology John Ochoa M D [address] [facility] [address] [place] [address] [phone] 06/10/2020 Office Visit Family Medicine Estrada Wang MD [address] [place] [address] [phone] Health Maintenance Due Date Last [...] CDT) Pathologist Sig nature APPEARANCE Clear Clear [facility] COLOR Yellow Yellow [facility] PH 5.0 4.8 - 8.0 [facility] SP GRAVITY 1.016 1.003 - 1.030 [facility] GLU U QUAL Normal Normal [facility] BLOOD 2+ (A) Negative [facility] KETONES Negative Negative [facility] PROTEIN Negative Negative [facility] UROBILIN Normal Normal [facility] BILIRUBIN Negative Negative [facility] NITRITE Negative Negative [facility] LEUK JANEEN 250/uL (A) Negative [facility] RBC/HPF 6 (H) 0 - 3 HPF [facility] WBC/HPF 10 (H) 0 - 5 HPF [facility] BACTERIA Few (A) Negative [facility] MUCOUS Slight (A) Negative LPF [facility] SQ EPITH 6 HPF [facility] Specimen Urine - URINE, CLEAN CATCH Performing Organization Address City/[facility]/Zipcode Phone Number [facility] CLIA: [id number] [place] [address] URINE CULTURE (02/25/2020 8:36 AM CDT) URINE CULTURE 10,000 - 100,000 [facility] CFU/mL mixed aerobic SERVICES organisms - suggests endogenous microbial contamination Specimen Urine - URINE, CLEAN CATCH Performing Organization Address City/[facility]/Zipcode Phone Number [facility] CLIA: [id number] [place] [address] [place] [address] Blvd MAGNESIUM (02/25/2020 8:31 AM CDT) Pathologist Sig nature MAGNESIUM 1.9 1.7 - 2.4 mg/dL [facility] Specimen Blood - ARM, LEFT Performing Organization Address City/[facility]/Zipcode Phone Number [facility] CLIA: [id number] [place] [address] CBC WITH DIFF (02/25/2020 8:31 AM CDT) Pathologist Sig nature WBC 5.77 4.30 - 11.10 [facility] 10*3/L [facility] RBC 3.95 3.93 - 5.25 [facility] 10*6/L [facility] HGB 11.4 (L) 11.6 - 15.0 [facility] g/dL [facility] HCT 36.7 35.7 - 45.2 % [facility] MCV 92.9 80.6 - 95.5 fL [facility] MCH 28.9 25.9 - 32.8 pg [facility] MCHC 31.1 (L) 31.6 - 35.1 [facility] g/dL [facility] RDW-SD 45.3 39.0 - 49.9 fL [facility] RDW-CV 13.2 12.0 - 15.5 % [facility] PLT 198 166 - 358 [facility] 10*3/L [facility] MPV 9.1 (L) 9.5 - 12.9 fL [facility] NRBC/100 WBC 0.0 0.0 - 10.0 /100 [facility] WBCs [facility] NRBC x10^3 <0.01 10*3/L [facility] GRAN MAT (NEUT) % 61.4 % [facility] IMM GRAN % 0.50 % [facility] LYMPH % 25.0 % [facility] MONO % 8.3 % [facility] EOS % 4.3 % [facility] BASO % 0.5 % [facility] GRAN MAT x10^3(ANC) 3.54 1.88 - 7.09 [facility] 10*3/uL HOSPITAL LABORATORY IMM GRAN x10^3 0.03 0.00 - 0.06 [facility] 10*3/uL [facility]OS[facility]ITAL [facility]ORY LYMPH x10^3 1.44 1.32 - 3.29 [facility] 10*3/uL [facility]ITAL [facility] MONO x10^3 0.48 0.33 - 0.92 [facility] 10*3/uL HOSPITAL [facility]ORY EOS x10^3 0.25 0.03 - 0.39 [facility] 10*3/uL [facility]ITAL [facility] BASO x10^3 0.03 0.01 - 0.07 [facility] 10*3/uL [facility] Specimen Blood - ARM, LEFT Performing Organization Address City/[facility]/Zipcode Phone Number [facility] CLIA: [id number] [place] [address] VITAMIN B12, LEVEL (02/25/2020 8:31 AM CDT) Pathologist Sig nature VIT B12 385 240 - 930 pg/mL [facility] Specimen Blood - ARM, LEFT Narrative Performed At Biotin has been reported to cause a positive bias, int erpret [facility] results relative to patient's use of biotin. Performing Organization Address [facility]/[employer] Phone Number [facility] CLIA: [id number] [place] [address] [place] [address] FOLATE (02/25/2020 8:31 AM CDT) FOLATE SER 8.8Comment: Biotin 3.0 - 20.0 [facility] has been reported ng/mL SERVICES to cause a positive bias, interpret results relative to patient's use of biotin. Specimen Blood - ARM, LEFT Performing Organization Address City/[facility]/Rust[employer] Phone Number [facility] CLIA: [id number] [place] [address] [place] [address] IRON PANEL (02/25/2020 8:31 AM CDT) Pathologist Sig nature IRON 51 50 - 160 ug/dL [facility] TIBC 283 250 - 410 ug/dL [facility] % FE SAT 18 (L) 20 - 50 % [facility] Specimen Blood - ARM, LEFT Performing Organization Address City/State/Zipcode Phone Number [facility] CLIA: [id number] [place] [address] FERRITIN SERUM (02/25/2020 8:31 AM CDT) Pathologist Sig nature FERRITIN 173.0 11.0 - 264.0 ng/mL [facility] Specimen Blood - ARM, LEFT Narrative Performed At Biotin has been reported to cause a negative [facility] bias, interpret results relative to patient's use of biotin. Performing Organization Address City/[facility]/Zipcode Phone Number [facility] CLIA: [id number] [place] [address] documented in this encounter Visit Diagnoses Diagnosis Essential hypertension - Primary Unspecified essential hypertension Hospital discharge follow-up Other follow-up examination Nocturia Hypomagnesemia Disorders of magnesium metabolism Postoperative anemia Anemia, unspecified documented in this encounter Insurance Payer Benefit Plan / Subscriber ID Effective Phone Address T ype Group [facility] [id number] 2019-Antony sheikh [facility] - MEDICARE HMO MANAGED MEDICARE ADVANTAGE documented as of this encounter
--- OUTSIDE RECORDS SUMMARY | 2020-03-18 05:53 | XMS REPORT | Summary of Care ---
:1955 Author Organization [facility] Address [address] [place] [address] Care Team Providers Name Role Phone Molly Wang MD Primary Care Provider MD Capo Unavailable Sitter Unavailable Davis Dukes MD Unavailable Keith Naqvi Unavailable Reason for Visit Reason Comments POST-OP Encounter Details Date Type Department Care Team Description 03/04/2020 Office Visit [facility] Urology- Adriel Ochoa MD Uterovaginal prolapse, [address] incomplete (Primary [address] [place] [facility]) [address] [place] [address] [phone] Allergies Active Allergy Reactions Severity Noted Date Comments Penicillin Rash, Shortness of Breath 02/02/2017 documented as of this encounter (statuses as of 03/04/2020) Medications Medication Sig Dispensed Refills Start Date [...] as of this encounter (statuses as of 03/04/2020) Active Problems Problem Noted Date Observation after surgery 02/15/2020 Uterovaginal prolapse, incomplete 01/31/2020 Overview: Added automatically from request for laura ventura [id number] Morbid obesity with body mass index of [...] Added automatically from request for laura whitehead [id number] Diabetes mellitus type 2, controlled, without complica tions 02/04/2017 Essential hypertension 02/04/2017 GERD (gastroesophageal reflux disease) 02/04/2017 documented as of this encounter (statuses as of 03/04/2020) Immunizations Name Administration Dates Next Due Pneumococcal [...] Sign Reading Time Taken Comments Blood Pressure 137/83 03/04/2020 8:01 AM CDT Pulse 88 03/04/2020 8:01 AM CDT Temperature - - Respiratory Rate 18 03/04/2020 8:01 AM CDT Oxygen Saturation - - Inhaled Oxygen Concentration - - Weight 121.1 kg (267 lb) 03/04/2020 8:01 AM CDT Height 167.6 cm (5' 6") 03/04/2020 8:01 AM CDT Body Mass Index 43.09 03/04/2020 8:01 AM CDT documented in this encounter Progress Notes John Ochoa MD - 03/04/2020 8:00 AM CDT Post Op: Post anterior colporrhaphy and SSLF 02/18/2020, she is doing well and denies any symptoms. 03/04/20 0801 Weight: 267 lb (121.1 kg) Height: 5' 6" (1.676 m) Vitals: 03/04/20 0801 BP: 137/83 Pulse: 88 Resp: 18 Weight: 267 lb (121.1 kg) Height: 5' 6" (1.676 m) Plan: 6 Weeks for Pelvic exam John Ochoa MD documented in this encounter Plan of Treatment Date Type Specialty Care Team Description 04/22/2020 Office Visit Urology John Ochoa M D [address] [facility] [address] [place], [place] [address] 06/10/2020 Office Visit Family Medicine Estrada Wang MD [address] [place] [address] [phone] Health Maintenance Due Date Last [...] Diagnosis Uterovaginal prolapse, incomplete - Prim cadence documented in this encounter Insurance Payer Benefit Plan / Subscriber ID Effective Phone Address T ype Group Dates [facility] [id number] 2019-Antony sheikh [facility] - MEDICARE nt HMO MANAGED MEDICARE ADVANTAGE documented as of this encounter
--- OUTSIDE RECORDS SUMMARY | 2020-03-18 05:53 | XMS REPORT | Summary of Care ---
:1955 Author Organization [facility] Address [address] [place] [address] Care Team Providers Name Role Phone Molly Wang MD Primary Care Provider MD Capo Unavailable Sitter Unavailable Davis Dukes MD Unavailable Keith Naqvi Unavailable Reason for Visit Reason Comments POST-OP Encounter Details Date Type Department Care Team Description 03/04/2020 Office Visit [facility] Urology- Adriel Ochoa MD Uterovaginal prolapse, [address] incomplete (Primary [address] [place] [facility]) [address] [place] [address] [phone] Allergies Active Allergy Reactions Severity Noted Date [...] Added automatically from request for laura ventura [id number] Morbid obesity with body mass index of 40.0-49.9 11/21 Endometrial polyp 02/28/2019 Overview: 05/04/19 - in office hysteroscopy reveal ed three benign endometrial polyps and an atrophic endometrial lining. Histology r evealed benign endometrial polyps and inactive endometrium c/w atrophy. Fatty liver 02/19/2019 Abdominal pain 02/15/2019 Pneumonia 02/14/2019 LASAHY (acute kidney injury) 10/29/2018 Obesity (BMI 30-39.9) 10/29/2018 Pancytopenia 10/16/2018 ASCUS of cervix with negative high risk HPV 08/31/2018 Overview: 08/17/18 - pap smear ASCUS with negative HPV Other urinary incontinence 01/19/2018 Lichen simplex chronicus 06/18/2017 Vulvar lesion 06/15/2017 Abnormal EKG 06/03/2017 Vulvar itching 05/13/2017 Vulvar rash 05/13/2017 Screening for colorectal cancer 02/08/2017 Overview: Added automatically from request for laura whitehead [id number] Diabetes mellitus type 2, controlled, without complica [...] Visit Urology John Ochoa M D [address] [facility] [address] [place], [place] [address] 06/10/2020 Office Visit Family Medicine Estrada Wang MD [address] [place] [address] [phone] Health Maintenance Due Date Last [...] Type Problems Progress weight down General Yes [place], to 247 lbs Doug Barnes MD by October of 2017 documented as of this encounter Results Not on filedocumented in this encounter Visit Diagnoses Diagnosis Uterovaginal prolapse, incomplete - Prim cadence documented in this encounter Insurance Payer Benefit Plan / Subscriber ID Effective Phone Address T ype Group Dates [facility] [id number] 2019-Antony sheikh Adv [employer] - MEDICARE nt HMO MANAGED MEDICARE ADVANTAGE documented as of this encounter
[2020-03-18] MEDS ORDERED: NA CHLORIDE 0.9% 0 ML ONE (06:32)
[2020-03-18] MEDS ORDERED: NA CHLORIDE 0.9% 1,000 ML ONE (06:33)
[2020-03-18 06:51] LABS: Urine Blood NEGATIVE (NEG); Urine Glucose NEGATIVE (NEG); Urine Protein NEGATIVE (NEG)
[2020-03-18 06:52] LABS: Urine Bacteria 20-50 /HPF (<20); Urine Culture Reflex Order REFLEXED; Urine RBC <5 /HPF (NONE SEEN)
[2020-03-18 07:05] LABS: Absolute Lymphocytes (CBC) 1.2 K/uL (0.7-4.9); Basophils % 0.3 % (0-1.3); Hematocrit 38.9 % (36.0-45.0); Lymphocytes % 26.4 % (15.3-44.8); MPV 7.3 fL (7.6-11.3); RBC Red Blood Cell Count 4.43 M/uL (3.86-4.86)
--- NOTE | 2020-03-18 07:14 | RAD REPORT ---
EXAM DESCRIPTION: RAD - Chest Single View - 03/18/2020 6:44 am CLINICAL HISTORY: COUGH, aches and pains, patient reports negative influenza and COVID testing COMPARISON: Portable July 26, 2019 TECHNIQUE: AP portable chest image was obtained 03/18/2020 6:44 am . FINDINGS: Lung volumes are low. Under penetrated portable technique, low lung volumes and large body habitus accentuate the chest findings. A focal consolidation is not seen. Interstitial pattern is prominent, similar or slightly increased o erick comparison. Heart size within normal limits for the exam limitations. Central vasculature promine nt but also within the range of normal. Trachea is midline. No measurable pleural effusion and no pne umothorax. No acute bony abnormality seen. No acute aortic findings suspected. IMPRESSION: Limited portable study shows prominent interstitial markings with vasculature in the upp er normal range. No focal consolidation to suspect bacterial pneumonia. A mild viral infiltrate or mild interstitial e tamiko cannot be excluded.
[2020-03-18 07:30] LABS: ALT/SGPT 27 U/L (12-78); AST/SGOT 19 U/L (15-37); Albumin 3.5 g/dL (3.4-5.0); Alkaline Phosphatase 97 U/L (45-117); BUN Blood Urea Nitrogen 11 mg/dL (7-18); Bicarbonate 27 mmol/L (21-32); Bilirubin Direct 0.1 mg/dL (0-0.2); Bilirubin Total 0.3 mg/dL (0.2-1.0); Glucose Level 106 mg/dL (74-106); Phosphorus 2.7 mg/dL (2.5-4.9); Potassium 4.1 mmol/L (3.5-5.1); Protein, Total 7.9 g/dL (6.4-8.2); Sodium Level 143 mmol/L (136-145); Troponin (Emerg Dept Use Only) < 0.02 ng/mL (0.0-0.045)
--- NOTE | 2020-03-18 08:35 | EDPHYS ---
Physician Documentation [facility] Name: Nanci Barros Age: 64 yrs Sex: Female : 1955 Arrival Date: 03/18/2020 Time: 05:42 Bed 6 Private MD: ED Physician Behzad Nichole HPI: 03/18 06:23 This 64 yrs old Black Female presents to ER via Ambulatory with complaints of Body mh7 Aches, General Weakness. 06:23 Body Aches and Fatigue. Onset: The symptoms/episode began/occurred 5 day(s) ago. mh7 Severity of symptoms: At their worst the symptoms were moderate 3 day(s) ago, in the emergency department the symptoms have improved moderately. The patient has been recently seen at an urgent care, last week. Historical: - Allergies: 05:53 PENICILLINS; ea - Home Meds: 05:53 telmisartan-hydrochlorothiazid 80-25 mg Oral tab once daily [Active]; nitrofurantoin ea macrocrystal 100 mg Oral cap [Active]; metformin 500 mg Oral tab daily [Active]; losartan 100 mg Oral tab once daily [Active]; amlodipine 5 mg tab 1 tab once daily [Active]; - PMHx: 05:53 psoriasis; Diabetes - NIDDM; Hypertension; acid reflux; ea - PSHx: 05:53 Cholecystectomy; ea - Immunization history:: Adult Immunizations up to date. - Social history:: Smoking status: Patient denies any tobacco usage or history of. ROS: 06:23 Constitutional: Negative for fever, chills, and weight loss, Eyes: Negative for injury, mh7 pain, redness, and discharge, ENT: Negative for injury, pain, and discharge, Neck: Negative for injury, pain, and swelling, Cardiovascular: Negative for chest pain, palpitations, and edema, Respiratory: Negative for shortness of breath, cough, wheezing, and pleuritic chest pain, Abdomen/GI: Negative for abdominal pain, nausea, vomiting, diarrhea, and constipation, Back: Negative for injury and pain, : Negative for injury, bleeding, discharge, and swelling, MS/Extremity: Negative for injury and deformity, Skin: Negative for injury, rash, and discoloration, Neuro: Negative for headache, weakness, numbness, tingling, and seizure, Psych: Negative for depression, anxiety, suicide ideation, homicidal ideation, and hallucinations, Allergy/Immunology: Negative for hives, rash, and allergies, Endocrine: Negative for neck swelling, polydipsia, polyuria, polyphagia, and marked weight changes, Hematologic/Lymphatic: Negative for swollen nodes, abnormal bleeding, and unusual bruising. Exam: 06:23 Constitutional: This is a well developed, well nourished patient who is awake, alert, mh7 and in no acute distress. Head/Face: Normocephalic, atraumatic. Eyes: Pupils equal round and reactive to light, extra-ocular motions intact. Lids and lashes normal. Conjunctiva and sclera are non-icteric and not injected. Cornea within normal limits. Periorbital areas with no swelling, redness, or edema. ENT: Nares patent. No nasal discharge, no septal abnormalities noted. Tympanic membranes are normal and external auditory canals are clear. Oropharynx with no redness, swelling, or masses, exudates, or evidence of obstruction, uvula midline. Mucous membranes moist. Neck: Trachea midline, no thyromegaly or masses palpated, and no cervical lymphadenopathy. Supple, full range of motion without nuchal rigidity, or vertebral point tenderness. No Meningismus. Chest/axilla: Normal chest wall appearance and motion. Nontender with no deformity. No lesions are appreciated. Cardiovascular: Regular rate and rhythm with a normal S1 and S2. No gallops, murmurs, or rubs. Normal PMI, no JVD. No pulse deficits. Respiratory: Lungs have equal breath sounds bilaterally, clear to auscultation and percussion. No rales, rhonchi or wheezes noted. No increased work of breathing, no retractions or nasal flaring. Abdomen/GI: Soft, non-tender, with normal bowel sounds. No distension or tympany. No guarding or rebound. No evidence of tenderness throughout. Back: No spinal tenderness. No costovertebral tenderness. Full range of motion. Skin: Warm, dry with normal turgor. Normal color with no rashes, no lesions, and no evidence of cellulitis. MS/ Extremity: Pulses equal, no cyanosis. Neurovascular intact. Full, normal range of motion. Neuro: Awake and alert, GCS 15, oriented to person, place, time, and situation. Cranial nerves II-XII grossly intact. Motor strength 5/5 in all extremities. Sensory grossly intact. Cerebellar exam normal. Normal gait. Psych: Awake, alert, with orientation to person, place and time. Behavior, mood, and affect are within normal limits. 08:34 ECG was reviewed by the Attending Physician. antonio 08:36 Musculoskeletal/extremity: DVT Exam: No signs of deep vein thrombosis. no pain, no antonio swelling, no tenderness, negative Homans' sign noted on exam, no appreciated bluish discoloration, no erythema, no increased warmth. Vital Signs: 05:53 BP 103 / 91; Pulse 89; Resp 16; Temp 98.7; Pulse Ox 99% on R/A; Pain 6/10; sg 07:01 BP 127 / 61; Pulse 77; Resp 19; Pulse Ox 99% ; rr5 08:00 BP 143 / 71; Pulse 84; Resp 18; Pulse Ox 100% ; rb1 MDM: 06:15 Patient medically screened. 7 07:52 Patient medically screened. antonio 08:35 Differential Diagnosis sepsis, flu. Data reviewed: vital signs, nurses notes, lab test [facility] result(s), EKG, radiologic studies, plain films. Data interpreted: cafeteria monitor: rate is 84 beats/min, rhythm is regular, Pulse oximetry: on room air is 100 %. Test interpretation: by ED physician or midlevel provider: ECG, plain radiologic studies. Counseling: I had a detailed discussion with the patient and/or guardian regarding: the historical points, exam findings, and any diagnostic results supporting the discharge/admit diagnosis, lab results, radiology results, the need for outpatient follow up, for definitive care, an spooler rubber strand. 03/18 06:14 Order name: CBC with Diff [facility] 03/18 06:14 Order name: Basic Metabolic Panel [facility] 03/18 06:14 Order name: LFT's [facility] 03/18 06:14 Order name: Magnesium [facility] 03/18 06:14 Order name: Phosphorus [facility] 03/18 06:14 Order name: Troponin (emerg Dept Use Only) [facility] 03/18 06:14 Order name: TSH [facility] 03/18 06:28 Order name: Urine Microscopic Only 5 03/18 06:31 Order name: Urine Dipstick--Ancillary (enter results) 2 03/18 06:51 Order name: Urine Dipstick-Ancillary; Complete Time: 08:06 EDMS 03/18 06:52 Order name: Urine Microscopic Only; Complete Time: 08:06 [facility] 03/18 07:08 Order name: CBC with Automated Diff; Complete Time: 08:06 [facility] 03/18 07:31 Order name: Basic Metabolic Panel; Complete Time: 08:06 [facility] 03/18 07:31 Order name: Liver (Hepatic) Function; Complete Time: 08:06 [facility] 03/18 06:14 Order name: Urine Dipstick-Ancillary (obtain specimen); Complete Time: 06:37 [facility] 03/18 06:14 Order name: EKG - Nurse/Tech; Complete Time: 06:37 [facility] 03/18 06:14 Order name: Chest Single View XRAY [facility] 03/18 07:14 Order name: RAD; Complete Time: 08:06 [facility] 03/18 07:31 Order name: Phosphorus; Complete Time: 08:06 [facility] 03/18 07:31 Order name: Troponin (Emerg Dept Use Only); Complete Time: 08:06 [facility] 03/18 07:31 Order name: Magnesium; Complete Time: 08:06 [facility] 03/18 07:31 Order name: Thyroid Stimulating Hormone; Complete Time: 08:06 [facility] 03/18 08:07 Order name: BNP antonio 03/18 08:31 Order name: Urine Culture antonio 03/18 08:43 Order name: NT PRO-BNP EDMS EC:34 Rate is 82 beats/min. Rhythm is regular. QRS Kinta is Normal. NE interval is normal. QRS antonio interval is normal. QT interval is normal. No Q waves. T waves are Normal. No ST changes noted. Clinical impression: Normal ECG and No evidence of ischemia. Interpreted by me. Reviewed by me. Administered Medications: 07:02 Drug: NS 0.9% 1000 ml Route: IV; Rate: 1000 ml; Site: left hand; rr5 08:10 Follow up: Response: No adverse reaction; IV Status: Completed infusion; IV Intake: jl7 1000ml 08:38 Drug: Rocephin 1 grams Route: IV; Rate: per protocol; Site: left hand; jl7 08:41 Follow up: Response: No adverse reaction; IV Status: Completed infusion jl7 Disposition: 03/18/20 08:34 Discharged to Home. Impression: Malaise and fatigue, Weakness, Type 2 diabetes mellitus. - Condition is Stable. - Discharge Instructions: Type 2 Diabetes Mellitus, Diagnosis, Adult, Weakness, Fatigue, Weakness, [id number], Aspirin and Your Heart, Type 2 Diabetes Mellitus, Diagnosis, Adult, [id number]. - Prescriptions for Vitamin 27- 0.8 mg Oral Tablet - take 1 tablet by ORAL route once daily; 30 tablet. - Medication Reconciliation Form, Thank You Letter, Antibiotic Education, Prescription Opioid Use form. - Follow up: Private Physician; When: 2 - 3 days; Reason: Recheck today's complaints, Continuance of care, Re-evaluation by your physician. - Problem is new. - Symptoms have improved. Signatures: Dispatcher [employer] EDMS Behzad Nichole MD MD cha Leal, Jahala RN RN jl7 Arielle Alfredo RN Codey Braga ea RN RN rr5 Jose Ye MD MD mh7 Corrections: (The following items were deleted from the chart) 08:48 08:34 03/18/2020 08:34 Discharged to Home. Impression: Malaise and fatigue; Weakness; jl7 Type 2 diabetes mellitus. Condition is Stable. Forms are Medication Reconciliation Form, Thank You Letter, Antibiotic Education, Prescription Opioid Use. Follow up: Private Physician; When: 2 - 3 days; Reason: Recheck today's complaints, Continuance of care, Re-evaluation by your physician. Problem is new. Symptoms have improved. antonio
--- NOTE | 2020-03-18 08:35 | ER ---
Nurse's Notes [facility] Name: Nanci Barros Age: 64 yrs Sex: Female : 1955 Arrival Date: 03/18/2020 Time: 05:42 Bed 6 Private MD: Diagnosis: Malaise and fatigue;Weakness;Type 2 diabetes mellitus Presentation: 03/18 05:48 Chief complaint: Patient states: I had the Flu test and COVID test done, both were sg negative. I have the result on my phone for the COVID, they reported it negative on Tuesday to me. I am still having these aches and pains that just are not getting any better. pt denies N/V/D/Fever at this time. Coronavirus screen: The client reports previous COVID testing was negative. Date of collection: March 14, 2020. Ebola Screen: Patient negative for fever greater than or equal to 101.5 degrees Fahrenheit, and additional compatible Ebola Virus Disease symptoms Patient denies exposure to infectious person. Patient denies travel to an Ebola-affected area in the 21 days before illness onset. No symptoms or risks identified at this time. Initial Sepsis Screen: Does the patient meet any 2 criteria? No. Patient's initial sepsis screen is negative. Does the patient have a suspected source of infection? No. Patient's initial sepsis screen is negative. Risk Assessment: Do you want to hurt yourself or someone else? Patient reports no desire to harm self or others. Onset of symptoms was March 13, 2020. Care prior to arrival: None. Activity prior to arrival: None. Transition of care: patient was not received from another setting of care. 05:48 Acuity: GET 3 sg 05:48 Method Of Arrival: Ambulatory sg 05:52 Ebola Screen: No symptoms or risks identified at this time. ea Historical: - Allergies: 05:53 PENICILLINS; ea - Home Meds: 05:53 telmisartan-hydrochlorothiazid 80-25 mg Oral tab once daily [Active]; nitrofurantoin ea macrocrystal 100 mg Oral cap [Active]; metformin 500 mg Oral tab daily [Active]; losartan 100 mg Oral tab once daily [Active]; amlodipine 5 mg tab 1 tab once daily [Active]; - PMHx: 05:53 psoriasis; Diabetes - NIDDM; Hypertension; acid reflux; ea - PSHx: 05:53 Cholecystectomy; ea - Immunization history:: Adult Immunizations up to date. - Social history:: Smoking status: Patient denies any tobacco usage or history of. Screenin:50 Abuse screen: Denies threats or abuse. Nutritional screening: No deficits noted. ea Tuberculosis screening: No symptoms or risk factors identified. Fall Risk None identified. Assessment: 05:54 General: Appears in no apparent distress. Behavior is calm, cooperative, appropriate ea for age. Pain: Complains of pain in body aches. Neuro: Level of Consciousness is awake, alert, obeys commands, Oriented to person, place, time, situation. Respiratory: Airway is patent Respiratory effort is even, unlabored, Respiratory pattern is regular, symmetrical. Derm: Skin is dry, Skin is normal, Skin temperature is warm. 07:04 General: Appears in no apparent distress. Behavior is calm, cooperative. Pain: rb1 Complains of pain in bodyaches Pain currently is 8 out of 10 on a pain scale. Neuro: Level of Consciousness is awake, alert, obeys commands, Oriented to person, place, time, situation. Cardiovascular:. Cardiovascular: Capillary refill < 3 seconds. Respiratory: Airway is patent Respiratory effort is even, unlabored, Respiratory pattern is regular, symmetrical. Derm: Skin is dry, Skin is normal, Skin temperature is warm. 08:04 Reassessment: Patient appears in no apparent distress at this time. No changes from rb1 previously documented assessment. Vital Signs: 05:53 BP 103 / 91; Pulse 89; Resp 16; Temp 98.7; Pulse Ox 99% on R/A; Pain 6/10; sg 07:01 BP 127 / 61; Pulse 77; Resp 19; Pulse Ox 99% ; rr5 08:00 BP 143 / 71; Pulse 84; Resp 18; Pulse Ox 100% ; rb1 ED Course: 05:42 Patient arrived in ED. bp1 05:50 Arielle Alfredo, WILMAR is Primary Nurse. ea 05:52 Patient has correct armband on for positive identification. Bed in low position. Call ea light in reach. Pulse ox on. NIBP on. 05:53 Triage completed. sg 05:53 Arm band placed on right wrist. Patient placed in an exam room, on a stretcher, on ea pulse oximetry. 06:00 Jose Ye MD is Attending Physician. mh7 07:00 Inserted saline lock: 22 gauge in left hand, using aseptic technique. Blood collected. rr5 07:00 No provider procedures requiring assistance completed. rr5 07:45 Attending Physician role handed off by Jose Ye MD cha 07:45 Behzad Nichole MD is Attending Physician. [facility] 07:50 Primary Nurse role handed off by Arielle Alfredo RN rb1 07:50 Jossie Peñaloza, RN is Primary Nurse. rb1 08:12 CBC with Diff Sent. jl7 08:12 Basic Metabolic Panel Sent. jl7 08:12 LFT's Sent. jl7 08:12 Magnesium Sent. jl7 08:12 Phosphorus Sent. jl7 08:12 Troponin (emerg Dept Use Only) Sent. jl7 08:12 TSH Sent. jl7 08:12 BNP Sent. jl7 08:12 Urine Dipstick--Ancillary (enter results) Sent. jl7 08:12 Urine Microscopic Only Sent. jl7 08:48 IV discontinued, intact, bleeding controlled, No redness/swelling at site. Pressure jl7 dressing applied. Administered Medications: 07:02 Drug: NS 0.9% 1000 ml Route: IV; Rate: 1000 ml; Site: left hand; rr5 08:10 Follow up: Response: No adverse reaction; IV Status: Completed infusion; IV Intake: jl7 1000ml 08:38 Drug: Rocephin 1 grams Route: IV; Rate: per protocol; Site: left hand; jl7 08:41 Follow up: Response: No adverse reaction; IV Status: Completed infusion jl7 Intake: 08:10 IV: 1000ml; Total: 1000ml. jl7 Outcome: 08:34 Discharge ordered by . [facility] 08:48 Discharged to home ambulatory. jl7 08:48 Condition: stable 08:48 Discharge instructions given to patient, Instructed on discharge instructions, follow up and referral plans. medication usage, Demonstrated understanding of instructions, follow-up care, medications, Prescriptions given X 1. 08:48 Patient left the ED. jl7 Signatures: Jelani Farooq, RN Behzad Sainz MD MD cha Barber, Rebecca, RN RN rb1 Aditi Lai RN RN jl7 Arielle Alfredo, Codey Braga RN, ea RN RN rr5 Misti Tinsley Maurice MD mh7
[2020-03-18] MEDS ORDERED: CEFTRIAXONE/SWI 1gm 1 GM/10 ML SYR ONE (08:52)
[2020-03-18 08:55] VITALS: TEMP 98.7
[2020-03-18 08:58] VITALS: BP 143/71; O2SAT 100
--- NOTE | 2020-03-19 13:00 | EKG ---
Test Date: 2020-03-18 Test Time: 06:30:11 Building Tech: CONCEPCIÓN MEASUREMENT RESULTS: Intervals: Rate: 82 OK: 152 QRSD: 78 QT: 344 QTc: 401 [place]: P: 64 OK: 152 QRS: 20 T: 20 INTERPRETIVE STATEMENTS: Normal sinus rhythm Normal ECG Compared to ECG 05/08/2019 13:42:35 No significant changes Electronically Signed On 03-19-20 12:59:18 CDT by Mack Caba
== END 2020-03-18 08:48 | disposition home or self-care (01) ==
LOC: ER 05:39
DX: R53.81 Other malaise (principal); R53.83 Other fatigue; E11.9 Type 2 diabetes mellitus without complications; I10 Essential (primary) hypertension; Z88.0 Allergy status to penicillin
CPT/HCPCS: 96361; 93005; 87088; 85025; 87086; 80048; 36415; 83735; 84100; 80076; 84443; 84484; 83880; 71045; 96374; 99284; J0696; J7030; 81003; 81015

== ENCOUNTER 2020-09-01 07:42 | Emergency (ER) | payer MEDICARE ==
--- OUTSIDE RECORDS SUMMARY | 2020-09-01 07:46 | XMS REPORT | Continuity of Care Document ---
:1955 Author Organization [facility] t Address [address] [place] [address] Care Team Providers Name Role Phone Felipe Primary Care Physician Unavailable Felipe AYERS, A Attending Clinician Pob, Lab Main Attending Clinician Unavailable FITZGERALD Attending Clinician Unavailable WILLIS Attending Clinician Unavailable Payers Payer Name Policy [...] type 2 d ity of diabetes diabetes [place] mellitus mellitus Physic i ans Extremity Extremity Problem Active Uni vers pain pain [place] of [place] Physici ans Well Well Problem Active Univers female female [place]y of exam with exam [place] routine routine Physici gynecologi gynecologi an s toni exam toni exam Perineal Perineal Problem Active Unive rs rash rash it[place] of [place] Physici ans Vaginal Vaginal Problem Active Univers dryness dryness ity of [place] Physici ans Limb Pain Problem Active 2013-08-03 Me moria 20:52:13 l Limb Siva Pain Active 08/03/ 4 [facility] Allergies, Adverse Reactions, Alerts Allergy Allergy Status Severity Reaction(s) Onset Inactive Treating Comm ents Source Name Type Date Date Clinician Penicill Propensi Active Rash [place] ins ty to 11-27 Methodi adverse 00:00: st reaction 00 s to drug Penicill DA Active [place] 2013-05 [facility] ins [facility]-04 [place] [facility] Not Not Active Memoria Known Known l Siva Penicill drug Active Univers ins allergy ity of [place] Physici ans Family History Family Member Diagnosis Comments Start [...] Family history of Univers ity of hypertension [place] Physic ians Mother Family history of Univers ity of malignant neoplasm [place] [facility] of stomach Father Family history of Univers ity of diabetes mellitus [place] P hysicians Father Family history of Univers ity of hypertension [place] Physic ians Sister Family history of Univers ity of diabetes mellitus [place] P hysicians Sister Family history of Univers ity of hypertension [place] Physic ians Natural Diabetes [place] brother Druze Natural father Heart attack [place] Druze Natural father Heart disease [place] Druze Natural sister Diabetes [facility] Social History Social Habit Start Date Stop Date Quantity Comments Source Tobacco use and 2018-11-27 2018-11-27 Never used [place] ethodist exposure 00:00:00 00:00:00 Alcohol intake 2018-11-27 2018-11-27 Lifetime [facility] thodist 00:00:00 00:00:00 non-drinker (finding) Sex Ass[birth year] [facility] ethodist 00:00:00 00:00:00 Smoking Status Start Date Stop Date Source Never smoker [place] [facility] Medications Ordered Filled Start Stop Current Ordering Indication Dosage Frequency Signature Comments Components Source Medication Medication Date Date Medication? Clinician (SIG) Name Name hydrocortis Yes hydrocorti [place] one 2.5 % 11-27 sonbecka 2.5 % Meth laxmi cream 09:18: topical st 28 cream alclomethas Yes alclometas [place] one 7-08 one 0.05 % Methodi (ACLOVATE) 09:18: topical st 0.05 % 28 cream cream clobetasol Yes clobetasol H cynthia (TEMOVATE) 08 0.05 % Methodi 0.05 % 09:18: topical st ointment 28 ointment diclofenac Yes 2g 2 g. Bacilio (VOLTAREN) 08 Methodi 1 % gel 09:18: st 28 fluocinonid Yes fluocinoni [place] e (LIDEX) 08 de 0.05 % Metho di 0.05 % [...] tablet 00:00: st 00 betamethaso Yes betamethas [place] ne, 8-30 one, Methodi augmented, 00:00: augmented [...] G M Univers iamcinolone iamcinolone 1-09 LAZARO MGumaro Twice ity of 808541-7.1 009013-3.1 00:00: daily [place] UNIT/GM-% UNIT/GM-% 00 Physi ci External External ans Cream Cream Oxybutynin Oxybutynin Yes DALE 1 QD TAKE 1 Univers Chloride ER Chloride ER - LAZARO Young TABLET ity of 5 MG Oral 5 MG Oral 00:00: DAILY [place] Tablet Tablet 00 Physici Extended Extended ans Release 24 Release 24 Hour Hour Estrace 0.1 Estrace 0.1 Yes DALE INSERT 1/4 Univers MG/GM MG/GM - LAZARO Young APPLICATOR it y of Vaginal [...] Comments Source Weight 2018-09-01 09:30:00 241.375 [lb_av] [facility] Physicians Body Mass Index 2018-09-01 09:30:00 38.96 kg/m2 [facility] Calculated Physicians Height 2018-09-01 09:30:00 66 [in_us] [facility] Height 2018-03-24 10:49:00 66 [in_us] [facility] Weight 2018-03-24 10:49:00 238 [lb_av] [facility] Body Mass Index 2018-03-24 10:49:00 38.41 kg/m2 [facility] Calculated Physicians Procedures Procedure Date / Time Performing Clinician Source Performed [U] XRAY KNEE 4 OR MORE 2018-03-21 00:00:00 [facility] [id number] Physicians History of Cholecystectomy [facility] History of Treatment Of Universi ty of [place] The Right Leg Physicians History of Shoulder [facility] [place] [facility] Right Physicians [facility] of Care Planned Activity Planned Date Details Comments Source Future Scheduled 2021-05-23 65+ PNEUMOCOCCAL [place] Test 00:00:00 VACCINE (2 of 2) [code = 65+ PNEUMOCOCCAL VACCINE (2 of 2)] Future Scheduled 2020-12-21 INFLUENZA VACCINE [place] Test 00:00:00 [code = INFLUENZA VACCINE] Future Scheduled 2005 BREAST CANCER [facility] thodist Test 00:00:00 SCREENING [code = BREAST CANCER SCREENING] Future Scheduled 2005 COLONOSCOPY SCREENING [place] [facility] Test 00:00:00 [code = COLONOSCOPY SCREENING] Future Scheduled 2005 SHINGLES VACCINES (#1) [place] Test 00:00:00 [code = SHINGLES VACCINES (#1)] Future Scheduled 1976 Screening for [facility] thodist Test 00:00:00 malignant neoplasm of cervix (procedure) [code = 707463154] Future Scheduled 1973 Hepatitis C screening [place] Test 00:00:00 (procedure) [code = 676279627] Future Scheduled 1971 COVID-19 VACCINE (1) [place] [facility] Test 00:00:00 [code = COVID-19 VACCINE (1)] Future Scheduled 1965 DIABETES: RETINAL EYE [place] Test 00:00:00 EXAM [code = DIABETES: RETINAL EYE EXAM] Future Scheduled 1965 DIABETIC FOOT EXAM [place] Test 00:00:00 [code = DIABETIC FOOT EXAM] Future Scheduled 1965 URINE MICROALBUMIN [place] Test 00:00:00 [code = URINE MICROALBUMIN] Encounters Start End Encounter Admission Attending Care Care Encounter Source Date/Time Date/Time Type Type Clinicians Facility Department ID 2020-08-22 2020-08-22 Telephone RO Wang [id number] 00:00:00 00:00:00 [facility] [id number] [facility] [id number] Professio [phone] nal [address] One 2020-08-17 2020-08-17 Refill RO Wang [id number] 00:00:00 00:00:00 [facility] [id number] [facility] [id number] Professio [phone] nal 0[address] One 2020-07-31 2020-07-31 Telephone Felipe [facility] [id number] 00:00:00 00:00:00 [facility] [id number] [place] [id number] Professio [phone] [facility] 044 [address] One 2020-07-22 2020-07-22 Case Felipe [facility] [id number] 00:00:00 00:00:00 Management [facility] [id number] [place] [id number] Professio [phone] [facility] 044 [address] One 2020-07-14 2020-07-14 Video Network Engineer Donn Henao [facility] [id number] 09:23:27 09:38:27 Visit Lab Main [facility] [id number] [place] [id number] Professio [phone] [address] 2020-06-10 2020-06-10 Office Felipe [facility] [id number] 07:57:28 08:37:01 Visit [facility] [id number] [place] [id number] Professio [phone] [place] [address] [address] One 2018-09-01 2018-09-01 [facility] [id number] Univers 09:30:00 09:30:00 t; GALINDO FITZGERALD M.D. at [place], [place] [facility] Physici ans 2018-08-25 2018-08-25 JEANNE Capellan [facility] [id number] Univers 09:15:00 09:15:00 t; GALINDO FITZGERALD M.D. [facility] [place] Physici ans 2018-03-24 2018-03-24 [facility] [id number] Univers 09:00:00 09:00:00 t; GALINDO FITZGERALD M.D. at [place], [place] [facility] ans 2016-05-31 2016-05-31 JEANNE Fritz [facility] [id number] Univers 11:00:00 11:00:00 t; DALE WILLIS, Brenton M.D. [place] [facility] 2013-08-03 2013-08-03 Outpatient 3 [id number] 15:52:13 15:52:13 Results Test Description Test [...] NEGATIVE Leuk/mcL NEGATIVE DRUGS OF ABUSE SCREEN [id number] 13:56:00 Test Item Value Reference Range Interpretation [...] NEGATIVE SCcutoff <300 NG/ML [place]) RULE OUT NC [id number] 10:28:00 Test Item Value Reference Range Interpretation [...] results may stephanie yby method. BASIC METABOLIC [id number] 10:24:00 Test Item Value Reference Range Interpretation [...] CA) 9.0 MG/DL 8.5-10.1 N HEPATIC FUNCTION [id number] 10:24:00 Test Item Value Reference Range Interpretation [...] 78 Unit/L 45-117 N code = ALKP) [id number] 10:24:00 Test Item Value Reference Range Interpretation Comments LIPASE (test code = LIP) 93 Unit/L 114-286 L URINALYSIS [id number] 10:11:00 Test Item Value Reference Range Interpretation [...] code = LEUU) DRUGS OF ABUSE SCREEN [id number] 10:11:00 Test Item Value Reference Range Interpretation [...] = SCcutoff <300 NG/ML [place]) CBC W/AUTO [id number] 10:07:00 Test Item Value Reference Range Interpretation [...] DIFF/SCN CRITERIA MDIFF) - XR CHEST 1 [id number] 09:28:00 Name: NINA NEELY [facility] : 1955 Age/S: 63 / F [id number] Unit #: [id number] Loc: [place] [address] Phys: Nash Osei MD Acct: [id number] Dis Date: Status: REG ER PHONE #: [phone] Exam Date: 07/12/2018919 FAX #: Reason: cp EXAMS: CPT: [id number] XR CHEST 1 V 37207 Fluoro Time: DAP (Gy m2): Air Kerma [...] PAGE 1 Signed Report [facility] [place] [facility] 1955 Age/S: 63 / F [id number] [place] [address] Unit #: [id number] Loc: [place] [address] Phys: Nash Osei MD Acct: [id number] Dis Date: Status: REG ER PHONE #: [phone] Exam Date: 07/12/2018919 FAX #: Reason: cp EXAMS: CPT: [id number] XR CHEST 1 V 88106 Fluoro Time: DAP (Gy m2): Air Kerma (mGy): <Continued> Technologist: Breanna Kapadia, RT(R); Aleks Yan RT(R)(MR) Trnscb Date/Time: 07/12/2018 (927) [id number] Orig Print D/T: S: 07/12/2018 (09) PAGE 2 Signed Report[U] XRAY KNEE 4 OR MORE VWS LEFT [id number] 09:05:00Images acquired, not reported on this accession number.[facility] Phys[facility]
[2020-09-01 08:08] LABS: Urine Blood Negative (Negative); Urine Glucose Negative (Negative); Urine Protein Negative (Negative); Urine Specific Gravity 1.025 (1.005-1.030)
[2020-09-01] MEDS ORDERED: MORPHINE 2 MG/ML SYR ONE (08:29)
[2020-09-01] MEDS ORDERED: ONDANSETRON 4 MG/2 ML VIAL ONE (08:29)
[2020-09-01] MEDS ORDERED: NA CHLORIDE 0.9% 1,000 ML ONE (08:30)
[2020-09-01 08:47] LABS: Absolute Lymphocytes (CBC) 1.1 K/uL (0.7-4.9); Basophils % 0.8 % (0-1.3); Hematocrit 37.4 % (36.0-45.0); Lymphocytes % 29.4 % (15.3-44.8); MPV 7.8 fL (7.6-11.3); RBC Red Blood Cell Count 4.21 M/uL (3.86-4.86)
[2020-09-01 09:04] LABS: Protime INR 1.05
[2020-09-01 09:10] LABS: ALT/SGPT 47 U/L (12-78); AST/SGOT 25 U/L (15-37); Albumin 3.7 g/dL (3.4-5.0); Alkaline Phosphatase 81 U/L (45-117); BUN Blood Urea Nitrogen 14 mg/dL (7-18); Bicarbonate 27 mmol/L (21-32); Bilirubin Direct < 0.1 mg/dL (0-0.2); Bilirubin Total 0.3 mg/dL (0.2-1.0); Glucose Level 155 mg/dL (74-106); Lipase 135 U/L (73-393); Magnesium 1.9 mg/dL (1.8-2.4); NT PRO-BNP 31 pg/mL (<125); Protein, Total 7.3 g/dL (6.4-8.2); Sodium Level 140 mmol/L (136-145); Troponin (Emerg Dept Use Only) < 0.02 ng/mL (0.0-0.045)
--- NOTE | 2020-09-01 09:44 | RAD REPORT ---
EXAM DESCRIPTION: CT - Abdomen Pelvis W Contrast - 09/01/2020 9:27 am CLINICAL HISTORY: Abdominal pain COMPARISON: 2019 TECHNIQUE: Computed axial tomography of the abdomen pelvis was obtained. 100 cc Isovue-300 was admin istered intravenously. Oral contrast was not requested which limits evaluation of bowel. All CT scans are performed using dose optimization technique as appropriate and may include automated exposure control or mA/KV adjustment according to patient size. FINDINGS: Fatty liver. Liver is mildly enlarged. Cholecystectomy. The spleen, pancreas and adrenals are unremarkable. 1 millimeter calculus right kidney. No hydronephrosis. Left kidney is small with cortical thinning. This may be secondary to prior inflammation or ischemia Small umbilical hernia There is no evidence of diverticulitis. Normal appendix. Spondylosis involves lumbar spine resulting in spinal stenosis IMPRESSION: Mild hepatomegaly with fatty infiltration of the liver
--- NOTE | 2020-09-01 09:45 | RAD REPORT ---
EXAM DESCRIPTION: Segundo Single View09/01/2020 8:49 am CLINICAL HISTORY: Cough COMPARISON: 2019 FINDINGS: The lungs appear clear of acute infiltrate. The heart is normal size IMPRESSION: No acute abnormalities displayed
--- NOTE | 2020-09-01 10:10 | ER ---
Nurse's Notes [facility] Name: Nanci Barros Age: 65 yrs Sex: Female : 1955 Arrival Date: 09/01/2020 Time: 07:45 Bed 6 Private MD: Diagnosis: Abdominal tenderness;Type 2 diabetes mellitus Presentation: 09/01 07:57 Chief complaint: Patient states: Left flank pain, radiates to left lower quadrant, x 2 jl7 weeks, denies burning or pain with urination. Coronavirus screen: Client denies travel out of the [place] in the last 14 days. At this time, the client does not indicate any symptoms associated with coronavirus-19. Ebola Screen: No symptoms or risks identified at this time. Initial Sepsis Screen: Does the patient meet any 2 criteria? No. Patient's initial sepsis screen is negative. Does the patient have a suspected source of infection? No. Patient's initial sepsis screen is negative. Risk Assessment: Do you want to hurt yourself or someone else? Patient reports no desire to harm self or others. Onset of symptoms was August 21, 2020. Care prior to arrival: None. 07:57 Method Of Arrival: Ambulatory jl7 07:57 Acuity: GET 3 jl7 Triage Assessment: 08:00 General: Appears in no apparent distress. uncomfortable, Behavior is calm, cooperative, jl7 appropriate for age. Pain: Complains of pain in left mid back Pain radiates to left lower quadrant Pain currently is 8 out of 10 on a pain scale. Pain began x 2 weeks Is continuous. Neuro: Level of Consciousness is awake, alert, obeys commands, Oriented to person, place, time, situation. Cardiovascular: Patient's skin is warm and dry. Respiratory: Airway is patent Respiratory effort is even, unlabored, Respiratory pattern is regular, symmetrical. : Reports pain in left flank(s), Denies burning with urination, pain with urination. Derm: Skin is pink, warm \T\ dry. Historical: - Allergies: 08:00 PENICILLINS; jl7 - Home Meds: 08:00 amlodipine 5 mg tab 1 tab once daily [Active]; losartan 100 mg Oral tab once daily jl7 [Active]; metformin 500 mg Oral tab daily [Active]; - PMHx: 08:00 acid reflux; Diabetes - NIDDM; Hypertension; psoriasis; jl7 - PSHx: 08:00 Cholecystectomy; jl7 - Immunization history:: Adult Immunizations up to date. - Social history:: Smoking status: Patient denies any tobacco usage or history of. Screenin:02 Abuse screen: Denies threats or abuse. Denies injuries from another. Nutritional jl7 screening: No deficits noted. Tuberculosis screening: No symptoms or risk factors identified. 09:00 Fall Risk IV access (20 points). Total Torres Fall Scale indicates No Risk (0-24 pts). jl7 Assessment: 08:02 General: see triage assessment. jl7 09:00 Reassessment: Patient appears in no apparent distress at this time. Patient and/or jl7 family updated on plan of care and expected duration. Pain level reassessed. Patient is alert, oriented x 3, equal unlabored respirations, skin warm/dry/pink. 10:00 Reassessment: Patient appears in no apparent distress at this time. Patient and/or jl7 family updated on plan of care and expected duration. Pain level reassessed. Patient is alert, oriented x 3, equal unlabored respirations, skin warm/dry/pink. Patient states feeling better. Patient states symptoms have improved. Vital Signs: 07:57 BP 152 / 83; Pulse 98; Resp 17 S; Temp 97.7(O); Pulse Ox 99% on R/A; Pain 8/10; jl7 10:00 BP 151 / 66; Pulse 74; Resp 17; Pulse Ox 99% ; Pain 0/10; jl7 ED Course: 07:45 Patient arrived in ED. am2 07:46 Aditi Lai, WILMAR is Primary Nurse. jl7 07:46 Behzad Nichole MD is Attending Physician. [facility] 07:59 Triage completed. jl7 08:00 Arm band placed on right wrist. jl7 08:02 Patient has correct armband on for positive identification. Bed in low position. Call jl7 light in reach. Side rails up X 1. Pulse ox on. NIBP on. 08:02 Warm blanket given. jl7 08:02 Urine collected: clean catch specimen, clear, tea colored. jl7 08:17 EKG done, by ED staff, reviewed by Behzad Nichole MD. em1 08:41 Initial lab(s) drawn, by me, sent to lab. Inserted saline lock: 22 gauge in left jl7 antecubital area, using aseptic technique. Blood collected. 08:49 XRAY Chest (1 view) In Process Unspecified. EDMS 09:27 CT Abd/Pelvis - IV Contrast Only In Process Unspecified. EDMS 10:40 No provider procedures requiring assistance completed. IV discontinued, intact, jl7 bleeding controlled, No redness/swelling at site. Pressure dressing applied. Administered Medications: 08:35 Drug: NS 0.9% 1000 ml Route: IV; Rate: 1 bolus; Site: left antecubital; jl7 08:35 Drug: Zofran (Ondansetron) 4 mg Route: IVP; Site: left antecubital; jl7 08:38 Drug: morphine 2 mg Route: IVP; Site: left antecubital; jl7 Outcome: 10:09 Discharge ordered by . antonio 10:40 Discharged to home ambulatory. jl7 10:40 Condition: stable 10:40 Discharge instructions given to patient, Instructed on discharge instructions, follow up and referral plans. medication usage, Demonstrated understanding of instructions, follow-up care, medications, Prescriptions given X 3. 10:54 Patient left the ED. jl7 Signatures: Dispatcher [employer] Behzad Kenny MD MD cha Martinez, Eric em1 Aditi Lai RN RN jl7 Tanya Sultana am2
--- NOTE | 2020-09-01 10:10 | EDPHYS ---
Physician Documentation [facility] Name: Nanci Barros Age: 65 yrs Sex: Female : 1955 Arrival Date: 09/01/2020 Time: 07:45 Bed 6 Private MD: RUIZ Physician Behzad Nichole HPI: 09/01 08:05 This 65 yrs old Black Female presents to ER via Ambulatory with complaints of left side antonio pain. 08:05 The patient presents with abdominal pain in the left upper quadrant, in the left lower antonio quadrant, abdominal distention in the upper abdomen, in the lower abdomen. Onset: The symptoms/episode began/occurred 2 week(s) ago. The patient complains of pain in the left low back and left mid back. The pain does not radiate. Onset: The symptoms/episode began/occurred 2 week(s) ago. Modifying factors: The symptoms are alleviated by nothing. the symptoms are aggravated by nothing. Associated signs and symptoms: The patient has no apparent associated signs or symptoms. The symptoms do not radiate. Associated signs and symptoms: none. The symptoms are described as constant, crampy. Modifying factors: The symptoms are alleviated by remaining still, the symptoms are aggravated by movement. Historical: - Allergies: 08:00 PENICILLINS; jl7 - Home Meds: 08:00 amlodipine 5 mg tab 1 tab once daily [Active]; losartan 100 mg Oral tab once daily jl7 [Active]; metformin 500 mg Oral tab daily [Active]; - PMHx: 08:00 acid reflux; Diabetes - NIDDM; Hypertension; psoriasis; jl7 - PSHx: 08:00 Cholecystectomy; jl7 - Immunization history:: Adult Immunizations up to date. - Social history:: Smoking status: Patient denies any tobacco usage or history of. ROS: 08:06 Constitutional: Negative for fever, chills, and weight loss, Eyes: Negative for injury, antonio pain, redness, and discharge, ENT: Negative for injury, pain, and discharge, Neck: Negative for injury, pain, and swelling, Cardiovascular: Negative for chest pain, palpitations, and edema, Respiratory: Negative for shortness of breath, cough, wheezing, and pleuritic chest pain, : Negative for injury, bleeding, discharge, and swelling, MS/Extremity: Negative for injury and deformity, Skin: Negative for injury, rash, and discoloration, Neuro: Negative for headache, weakness, numbness, tingling, and seizure, Psych: Negative for depression, anxiety, suicide ideation, homicidal ideation, and hallucinations, Allergy/Immunology: Negative for hives, rash, and allergies, Endocrine: Negative for neck swelling, polydipsia, polyuria, polyphagia, and marked weight changes, Hematologic/Lymphatic: Negative for swollen nodes, abnormal bleeding, and unusual bruising. 08:06 Abdomen/GI: Positive for abdominal pain, abdominal cramps, of the posterior aspect of left lateral abdomen, anterior aspect of left lateral abdomen, left upper quadrant and left lower quadrant. Exam: 08:06 Constitutional: This is a well developed, well nourished patient who is awake, alert, antonio and in no acute distress. Head/Face: Normocephalic, atraumatic. Eyes: Pupils equal round and reactive to light, extra-ocular motions intact. Lids and lashes normal. Conjunctiva and sclera are non-icteric and not injected. Cornea within normal limits. Periorbital areas with no swelling, redness, or edema. ENT: Nares patent. No nasal discharge, no septal abnormalities noted. Tympanic membranes are normal and external auditory canals are clear. Oropharynx with no redness, swelling, or masses, exudates, or evidence of obstruction, uvula midline. Mucous membranes moist. Neck: Trachea midline, no thyromegaly or masses palpated, and no cervical lymphadenopathy. Supple, full range of motion without nuchal rigidity, or vertebral point tenderness. No Meningismus. Chest/axilla: Normal chest wall appearance and motion. Nontender with no deformity. No lesions are appreciated. Cardiovascular: Regular rate and rhythm with a normal S1 and S2. No gallops, murmurs, or rubs. Normal PMI, no JVD. No pulse deficits. Respiratory: Lungs have equal breath sounds bilaterally, clear to auscultation and percussion. No rales, rhonchi or wheezes noted. No increased work of breathing, no retractions or nasal flaring. Female : Normal external genitalia. Skin: Warm, dry with normal turgor. Normal color with no rashes, no lesions, and no evidence of cellulitis. MS/ Extremity: Pulses equal, no cyanosis. Neurovascular intact. Full, normal range of motion. Neuro: Awake and alert, GCS 15, oriented to person, place, time, and situation. Cranial nerves II-XII grossly intact. Motor strength 5/5 in all extremities. Sensory grossly intact. Cerebellar exam normal. Normal gait. Psych: Awake, alert, with orientation to person, place and time. Behavior, mood, and affect are within normal limits. 08:06 Abdomen/GI: Inspection: abdomen appears normal, Bowel sounds: normal, Palpation: mild abdominal tenderness, moderate abdominal tenderness, in the posterior aspect of left lateral abdomen, anterior aspect of left lateral abdomen, left upper quadrant and left lower quadrant, Liver: no appreciated palpable abnormalities, Hernia: not appreciated. 08:24 ECG was reviewed by the Attending Physician. [facility] Vital Signs: 07:57 BP 152 / 83; Pulse 98; Resp 17 S; Temp 97.7(O); Pulse Ox 99% on R/A; Pain 8/10; jl7 10:00 BP 151 / 66; Pulse 74; Resp 17; Pulse Ox 99% ; Pain 0/10; jl7 MDM: 07:[address] [facility] 08:07 Differential diagnosis: nephrolithiasis, pyelonephritis, UTI, diverticulitis, antonio pancreatitis, diverticulitis, gastritis, non-specific abd pain, pancreatitis, Peptic Ulcer Disease, Pyelonephritis, urinary tract infection. Data reviewed: vital signs, nurses notes, lab test result(s), EKG, radiologic studies, CT scan, plain films. Data interpreted: telemetry monitor: rate is 98 beats/min, rhythm is regular, Pulse oximetry: on room air is 99 %. Test interpretation: by ED physician or midlevel provider: ECG, plain radiologic studies. Counseling: I had a detailed discussion with the patient and/or guardian regarding: the historical points, exam findings, and any diagnostic results supporting the discharge/admit diagnosis, lab results, radiology results. 09/01 08:04 Order name: Basic Metabolic Panel; Complete Time: 09:44 antonio 09/01 08:04 Order name: CBC with Diff; Complete Time: 09:09 antonio 09/01 08:04 Order name: LFT's; Complete Time: 09:44 antonio 09/01 08:04 Order name: Magnesium; Complete Time: :44 antonio 09/01 08:04 Order name: NT PRO-BNP; Complete Time: 09:44 [facility] 09/01 08:04 Order name: PT-INR; Complete Time: 09:44 [facility] 09/01 08:04 Order name: Troponin (emerg Dept Use Only); Complete Time: 09:44 [facility] 09/01 08:04 Order name: XRAY Chest (1 view); Complete Time: 10:07 [facility] 09/01 08:04 Order name: Lipase; Complete Time: 09:44 [facility] 09/01 08:04 Order name: Urine Culture [facility] 09/01 08:04 Order name: CT Abd/Pelvis - IV Contrast Only; Complete Time: 10:07 [facility] 09/01 08:08 Order name: Urine Dipstick-Ancillary; Complete Time: 08:24 EDMS 09/01 08:04 Order name: EKG; Complete Time: 08:05 [facility] 09/01 08:04 Order name: Cardiac monitoring; Complete Time: 08:40 [facility] 09/01 08:04 Order name: EKG - Nurse/Tech; Complete Time: 08:17 [facility] 09/01 08:04 Order name: IV Saline Lock; Complete Time: 08:40 [facility] 09/01 08:04 Order name: Labs collected and sent; Complete Time: 08:40 [facility] 09/01 08:04 Order name: O2 Per Protocol; Complete Time: 08:40 [facility] 09/01 08:04 Order name: O2 Sat Monitoring; Complete Time: 08:40 [facility] 09/01 08:04 Order name: Urine Dipstick-Ancillary (obtain specimen); Complete Time: 08:40 [facility] EC:24 Rate is 75 beats/min. QRS [place] is Normal. [place] interval is normal. QRS interval is antonio normal. QT interval is normal. No Q waves. T waves are Normal. No ST changes noted. Clinical impression: Normal ECG and No evidence of ischemia. Interpreted by me. Reviewed by me. Administered Medications: 08:35 Drug: NS 0.9% 1000 ml Route: IV; Rate: 1 bolus; Site: left antecubital; jl7 08:35 Drug: Zofran (Ondansetron) 4 mg Route: IVP; Site: left antecubital; jl7 08:38 Drug: morphine 2 mg Route: IVP; Site: left antecubital; jl7 Disposition: 09/01/20 10:09 Discharged to Home. Impression: Abdominal tenderness, Type 2 diabetes mellitus. - Condition is Stable. - Discharge Instructions: Abdominal Pain, Adult, Type 2 Diabetes Mellitus, Diagnosis, Adult, Abdominal Pain, Adult, [id number], Type 2 Diabetes Mellitus, Self Care, Adult, [id number]. - Prescriptions for Bentyl 20 mg Oral Tablet - take 1 tablet by ORAL route every 6 hours As needed; 20 tablet. Pepcid 20 mg Oral Tablet - take 1 tablet by ORAL route every 12 hours for 10 days; 20 tablet. Zofran 4 mg Oral Tablet - take 1 tablet by ORAL route every 12 hours As needed; 20 tablet. - Medication Reconciliation Form, Thank You Letter, Antibiotic Education, Prescription Opioid Use form. - Follow up: Private Physician; When: 2 - 3 days; Reason: Recheck today's complaints, Continuance of care, Re-evaluation by your physician. - Problem is new. - Symptoms have improved. Signatures: Dispatcher [employer] Behzad Kenny MD MD cha Leal, Jahala RN RN jl7 Corrections: (The following items were deleted from the chart) 10:54 10:09 09/01/2020 10:09 Discharged to Home. Impression: Abdominal tenderness; Type 2 jl7 diabetes mellitus. Condition is Stable. Forms are Medication Reconciliation Form, Thank You Letter, Antibiotic Education, Prescription Opioid Use. Follow up: Private Physician; When: 2 - 3 days; Reason: Recheck today's complaints, Continuance of care, Re-evaluation by your physician. Problem is new. Symptoms have improved. antonio
[2020-09-01 11:02] VITALS: TEMP 97.7; O2SAT 99
[2020-09-01 11:03] VITALS: BP 151/66
== END 2020-09-01 10:54 | disposition home or self-care (01) ==
LOC: ER 07:42
DX: R10.819 Abdominal tenderness, unspecified site (principal); E11.9 Type 2 diabetes mellitus without complications; I10 Essential (primary) hypertension; Z88.0 Allergy status to penicillin
CPT/HCPCS: 93005; 87088; 85025; 87086; 80048; 36415; 83735; 85610; 80076; 81003; 84484; 83690; 83880; 74177; 71045; Q9967; J2270; J7030; J2405; 96374; 96375; 99284

== ENCOUNTER 2021-09-23 11:14 | Emergency (ER) | payer MEDICARE, OTHER ==
--- OUTSIDE RECORDS SUMMARY | 2021-09-23 11:18 | XMS REPORT | Continuity of Care Document ---
:1955 Author Organization [facility] t Address [facility] [place] [address] Care Team Providers Name Role Phone DANIELLA Primary Care Physician Unavailable LYNDSEY Attending Clinician Unavailable DANIELLA Attending Clinician Unavailable Daniella AYERS Attending Clinician Orestes Wang MD Attending Clinician Pob, Lab Main Attending Clinician Unavailable LIA Attending Clinician Unavailable LAZARO Attending Clinician Unavailable Payers Payer Name Policy Type Policy Number Effective Date Expiration Date S steve [facility] [id number] 2020 00:00:00 Problems Condition Condition Condition Status Onset Resolution Last Treating Co mments Source Name Details Category Date Date Treatment Clinician Date Hyperchole Hyperchole Disease Active U nivers sterolemia sterolemia 4-28 it y of 00:00: [place] 00 Medical Branch At risk At risk Disease Active Univers for for 4-28 ity of cardiovasc cardiovasc [place] ular event ular event 00 Me dical Branch Stress Stress Disease Active Univers incontinen incontinen 09-17 it y of ce of ce of 00:: [place] urine urine Medical Branch Senile Senile Disease Active Univers osteoporos osteoporos 09-17 it y of is is 00:00: Medical Branch Need for Need for Disease Active Unive rs vaccinatio vaccinatio 09-17 it y of n against n against 00:00[place] Streptococ Streptococ 00 Me dical cus cus Branch pneumoniae pneumoniae using using pneumococc pneumococc al al conjugate conjugate vaccine 13 vaccine 13 Edema of Edema of Disease Active Unive rs both legs both legs 09-17 ity of 00:00: Medical Branch Gout Gout Disease Active 2020-05 Univers 07-01 ity of 00:00: Medical Branch Observatio Observatio Disease Active U nivers n after n after 02-14 ity of surgery surgery 00:00: Medical Branch Uterovagin Uterovagin Disease Active Overview : Univers al al 01-30 Formattin ity of prolapse, prolapse, 00:00: g of this [place] incomplete incomplete 00 note Me dical might be Branch different from the original. Added automatic ally from request for surgery [id number] Morbid Morbid Disease Active Univers obesity obesity 702 ity of with body with body 00:00[place] mass index mass index 00 Me dical of of Branch 40.0-49.9 40.0-49.9 Endometria Endometria Disease Active 2018-05 Overview : Univers l polyp l polyp 0 Formattin ity o f 00:00: g of this [place] 00 note Medical might be Branch different from the original. 05/04/19 - in office hysterosc opy revealed three benign endometri al polyps and an atrophic endometri al lining. Histology revealed benign endometri al polyps and inactive endometri um c/w atrophy. Fatty Fatty Disease Active Univers liver liver 02-19 ity of 00:00: [place] 00 Medical Branch Abdominal Abdominal Disease Active Uni vers pain pain 02-15 ity of 00:00: Medical Branch Pneumonia Pneumonia Disease Active Uni vers 02-14 ity of 00:00: [place] [facility] LASHAY (acute LASHAY (acute Disease Active U marlyers kidney kidney 6-09 ity of injury) injury) 00:00: [place] [address] Medical Branch Obesity Obesity Disease Active Univers (BMI (BMI 6-09 ity of 30-39.9) 30-39.9) 00:00: [place] [address] Medical Branch Pancytopen Pancytopen Disease Active U nivers ia ia 5-27 ity of 00:00: [place] [address] Medical Branch ASCUS of ASCUS of Disease Active Overview: Un leonard cervix cervix 4-11 Formattin ity of with with 00:00: g of this [place] negative negative 00 note Medica l high risk high risk might be Br anch HPV HPV different from the original. 08/17/18 - pap smear ASCUS with negative HPV Other Other Disease Active Univers urinary urinary 8-30 ity of incontinen incontinen 00:00: [place] ce ce 00 Medical Branch Lichen Lichen Disease Active Univers simplex simplex 1-27 ity of chronicus chronicus 00:00[place] Vulvar Vulvar Disease Active Univers lesion lesion 1-24 ity of 00:00: [place] [address] Medical Branch Abnormal Abnormal Disease Active Unive rs EKG EKG 1-12 ity of 00:00: [place] [facility] Vulvar Vulvar Disease Active 2016-05 Univers itching itching 2-22 ity of 00:00: [place] [address] Medical Branch Vulvar Vulvar Disease Active 2016-05 Univers rash rash 2-22 ity of 00:00: [place] [address] Medical Branch Medicare Medicare Disease Active Overview: Un leonard annual annual 02-08 Formattin ity of wellness wellness 00:00: g of this [place] as visit, visit, 00 note Medical subsequent subsequent might be Branch different from the original. Added automatic ally from request for surgery [id number] Type 2 Type 2 Disease Active Univers diabetes diabetes 9-15 ity of mellitus mellitus 00:00: [place] without without 00 Medical complicati complicati Br anch on, on, without without long-term long-term current current use of use of insulin insulin Essential Essential Disease Active Uni vers hypertensi hypertensi 9-15 it y of on on 00:00: [place] [address] Medical Branch GERD GERD Disease Active Univers (gastroeso (gastroeso 9-15 it y of phageal phageal 00:00: [place] reflux reflux 00 Medical disease) disease) Branch History of History of Problem Resolve Univers [...] pain pain ity of [place] [facility] Perineal Perineal Problem Active Unive rs rash rash ity of [place] [facility] Vaginal Vaginal Problem Active Univers dryness dryness ity of [place] [facility] Allergies, Adverse Reactions, Alerts Allergy Allergy Status Severity Reaction(s) Onset Inactive Treating Comm ents Source Name Type Date Date Clinician PENICILL DRUG Active Rash Univers IN INGREDI 9-13 ity of 00:00: [place] 00 Medical Branch Penicill Propensi Active Shortness of Univers in ty to Breath 9 ity of adverse 00:00: [place] reaction 00 Medical s Branch Penicill DA Active CT 2013-05 [facility] ins 0-04 [place] 00:00: d [...] Univers ity of hypertension [place] [facility] Social History Social Habit Start Date Stop Date Quantity Comments Source Alcohol intake 2021-09-20 2021-09-20 Current University of 00:00:00 00:00:00 non-drinker of [facility] alcohol Branch (finding) Tobacco use and 2017-02-02 2017-02-02 Never used Universit y of exposure 00:00:00 00:00:00 [facility] Sex [birth year] Universit y of 00:00:00 00:00:00 [facility] Smoking Status Start Date Stop Date Source Never smoker [facility] Medications Ordered Filled Start Stop Current Ordering Indication Dosage Frequency Signature Comments Components Source Medication Medication Date Date Medication? Clinician (SIG) Name Name telmisartan 2021- No [id number] 0.5 tablet Univers -hydrochlor -11 23- po once ity of othiazide 00:00: 00:00 daily [place] 40-12.5 mg 00 :00 Medical per tablet Branch oxybutynin 2021- No [id number] 5mg Take 1 Univers chloride 5 -09-17 tablet by ity of mg tablet 00:00: 00:00 mouth 2 [place] 00 :00 (two) Medical times Branch daily. amLODIPine Yes [id number] 2.5mg Take 1 Univers 2.5 mg 3-31 tablet by ity of tablet 00:00: mouth at [place] 00 bedtime. Medical Branch rosuvastati 2021- No [id number] 5mg Take 1 Univers n 5 mg -- tablet by ity of tablet 00:00: 00:00 mouth at [place] 00 :00 bedtime. Medical Branch metformin 2021- No [id number] 500mg Take 1 Univers ER 500 mg -- tablet by ity of 24 hr 00:00: 00:00 mouth [place] tablet 00 :00 daily with Medical breakfast. Branch colchicine Yes [id number] Take 2 Univers 0.6 mg 3-14 tabs po x ity of tablet 00:00: 1 dose PRN 00 gout Medical attack, Branch may take 1 tab 1 hour later if still in pain; Max 3 tabs per 24 hours. naproxen Yes [id number] 500mg Take 1 U nivers 500 mg 3-14 tablet by ity of tablet 00:00: mouth 2 00 (two) Medical times Branch daily with meals. allopurinoL 2020-05 Yes [id number] 100mg Take 1 Univers 100 mg 2-09 tablet by ity of tablet 00:00: mouth 00 daily. Medical Branch nystatin 2020-05- No [id number] Apply to Univers 100,000 06-28 area(s) 2 ity of unit/gram 00:00: 00:00 (two) [place] powder 00 :00 times Medical daily. Branch clobetasoL 2020-05- No [id number] Apply to Univers 0.05 % 06-28 area(s) 2 ity of ointment 00:00: 00:00 (two) [place] 00 :00 times Medical daily. Branch ondansetron 2020-05 Yes [id number] 4mg Take 1 Univers 4 mg 1-12 tablet by ity of disintegrat 00:00: mouth [place] ing tablet 00 every 8 Medica l (eight) Upatoi hours as needed for Nausea and Vomiting (N/V). methylPREDN 2020-05- No [id number] Take by [facility] ISolone 4 06-03 mouth ity of mg tablets 00:00: 00:00 SEE-INSTRU [place] 00 :00 CTIONS. Medical follow Branch package directions mupirocin 2 2020-05 Yes [id number] Apply to [facility] % ointment [id number] area(s) 3 ity of 00:00: (three) [place] 00 times Medical daily. Branch Blood-Gluco 2021- No [id number] Check Univers se Meter 06-10 glucose ity of (ONETOUCH 00:00: 00:00 once daily [place] ULTRA2 00 :00 before Medical METER) Kit breakfast; Bra [facility] Diagnosis code E11.9 lancets 2021- No [id number] Check Uni vers (ONE TOUCH 06-10 glucose ity o f DELICA) 33 00:00: 00:00 once daily [place] gauge Misc 00 :00 before Medical breakfast; Branch ICD-10 code E11.9 blood sugar 2021- No [id number] Check Univers diagnostic 06-10 glucose ity o f (ONETOUCH 00:00: 00:00 once daily [place] ULTRA BLUE 00 :00 before Medical TEST STRIP) breakfast; Br anch strip ICD-10 code E11.9 pantoprazol Yes 20mg Take 20 mg Univers e 20 mg EC 1-05 by mouth ity o f tablet 09:31: daily. [address] Nystatin-Tr Nystatin-Tr Yes DALE Q0.5D APPLY 2 G M Univers iamcinolone iamcinolone 05-31 LAZARO Young Twice ity of 219863-0.1 [id number] 00:00: daily [place] UNIT/GM-% UNIT/GM-% 00 Physi ci External External ans Cream Cream Oxybutynin Oxybutynin Yes DALE 1 QD TAKE 1 Univers Chloride ER Chloride ER 05-31 LAZARO Young TABLET ity of 5 MG Oral 5 MG Oral 00:00: DAILY [place] Tablet Tablet 00 Physici Extended Extended ans Release 24 Release 24 Hour Hour Estrace 0.1 Estrace 0.1 Yes DALE INSERT 1/4 Univers MG/GM MG/GM 05-31 LAZARO Young APPLICATOR it y of Vaginal Vaginal 00:00: FUL (1GM) [place] Cream Cream 00 VAGINALLY Physici TWICE ans WEEKLY. Losartan Losartan Yes Univers Potassium Potassium ity o f TABS TABS [place] Phys[facility] ans metFORMIN metFORMIN Yes Unive rs HCl - 500 HCl - 500 ity o f MG Oral MG Oral [place] Tablet Tablet Physici ans Immunizations Ordered Filled Immunization Date Status Comments [facility] e Immunization Name Name SARS-COV-2 COVID-19 2021-02-19 Completed Unive rsity of PFIZER VACCINE 00:00:00 [facility] SARS-COV-2 COVID-19 2020-07-03 Completed Unive rsity of PFIZER VACCINE 00:00:00 [facility] SARS-COV-2 COVID-19 2020-06-12 Completed Unive rsity of PFIZER VACCINE 00:00:00 [facility] Zoster Vaccine 2020-03-21 Completed University of Recombinant 00:00:00 [facility] Zoster Vaccine 2019-12-06 Completed University of Recombinant 00:00:00 [facility] Pneumococcal 2019-03-31 Completed University o f Polysaccharide, 00:00:00 [place] Med ical PPSV23 (PNEUMOVAX) Branch Pneumococcal 2016-05-23 Completed University o f Polysaccharide, 00:00:00 [place] Med ical PPSV23 (PNEUMOVAX) Branch Pneumococcal 2009-05-23 Completed University o f Polysaccharide, 00:00:00 [facility] ical PPSV23 (PNEUMOVAX) Branch Vital Signs Vital Name Observation Time Observation Value Comments Source Systolic blood 2021-09-17 15:29:00 132 mm[Hg] Univer sity of pressure [facility] Diastolic blood 2021-09-17 15:29:00 79 mm[Hg] Unive rsity of pressure [facility] Heart rate 2021-09-17 15:29:00 97 /min Universi ty [facility] Body temperature 2021-09-17 15:29:00 36.22 Jennifer [facility] Respiratory rate 2021-09-17 15:29:00 18 /min [facility] Body height 2021-09-17 15:29:00 167.6 cm Universi ty of [facility] Body weight 2021-09-17 15:29:00 117.028 kg Universi ty of [facility] BMI 2021-09-17 15:29:00 41.64 [facility]m2 [facility] Oxygen saturation in 2021-09-17 15:29:00 99 /min [facility] Arterial blood by [facility] Pulse oximetry Branch Weight 2018-09-01 09:30:00 241.375 [lb_av] [facility] [place] [facility] s Body Mass Index 2018-09-01 09:30:00 38.96 kg/m2 Unive rsity of Calculated [place] Physician s Height 2018-09-01 09:30:00 66 [in_us] Universi ty of [place] [facility]ician s Height 2018-03-24 10:49:00 66 [in_us] Universi ty of [place] [facility]ician s Weight 2018-03-24 10:49:00 238 [lb_av] Universi ty of [place] [facility]ician s Body Mass Index 2018-03-24 10:49:00 38.41 kg/m2 Unive rsity of Calculated [place] [facility]ician s Procedures Procedure Date / Time Performing Clinician Source Performed [U] XRAY KNEE 4 OR MORE 2018-03-21 00:00:00 [facility] [address] Physicians History of [facility] [place] [facility] History of Treatment Of Universi ty of [place] The Right Leg Physicians History of Shoulder University o f [place] Surgery Right Physicians History of Kidney Surgery Univer [facility] Physicians Encounters Start End Encounter Admission Attending Care Care Encounter Source Date/Time Date/Time Type Type Clinicians Facility Department ID 2020-11-05 Outpatient LYNDSEY [facility] [id number] [place] 14:18:26 [facility] 2021-10-02 2021-10-02 Outpatient R RUIZPATSYBANDARJERRI [facility] [id number] Univers 08:00:00 08:00:00 [facility] [id number] [facility] 2021-09-17 2021-09-17 Office Daniella [facility] [id number] Univers 10:40:00 11:17:37 Visit Michael OSPINA [id number] i ty [facility] [id number] [place] PROFESSIO [phone] La dical [address] 2020-08-22 2020-08-22 Telephone Felipe [facility] [id number] 00:00:00 00:00:00 [facility] [id number] [place] [id number] Professio [phone] [place] [address] Office [facility] One 2020-08-17 2020-08-17 Refill Felipe [facility] [id number] 00:00:00 00:00:00 [facility] [id number] [place] [id number] Professio [phone] [place] [address] Office [facility] One 2020-07-31 2020-07-31 Ella Wang [facility] [id number] 00:00:00 00:00:00 [facility] [id number] [place] [id number] Professio [phone] [place] [address] Office Building One 2020-07-22 2020-07-22 Jovany Wang [facility] [id number] 00:00:00 00:00:00 Management [facility] [id number] [place] [id number] Professio [phone] [place] [address] Office Building One 2020-07-14 2020-07-14 Clinical Abstractor Donn Henao [facility] [id number] 09:23:27 09:38:27 Visit Lab Main [place] [id number] [place] [id number] Professio [phone] nal [address] Building 2020-06-10 2020-06-10 Office Felipe [facility] [id number] 07:57:28 08:37:01 Visit [employer] [id number] [place] [id number] [place] [phone] nal 044 Office Building One 2018-09-01 2018-09-01 JEANNE [facility] [id number] Univers 09:30:00 09:30:00 t; [facility] 2018-08-25 2018-08-25 JEANNE Capellan UTP [id number] Univers 09:15:00 09:15:00 t; GALINDO FIT[facility]GERALD M.[facility]. [facility] 2018-03-24 2018-03-24 JEANNE [facility] [id number] Univers 09:00:00 09:00:00 t; [facility] 2016-05-31 2016-05-31 JEANNE Fritz [facility] [id number] Univers 11:00:00 11:00:00 t; DALE WILLIS ity of MICHELLE, M.D. [place] [facility] Results Test Description Test Time Test Comments [...] NEGATIVE Leuk/mcL NEGATIVE DRUGS OF ABUSE SCREEN [id number] 13:56:00 Test Item Value Reference Range Interpretation [...] NEGATIVE SCcutoff <300 NG/ML [place]) RULE OUT CT [id number] 10:28:00 Test Item Value Reference Range Interpretation [...] results may stephanie yby method. BASIC METABOLIC [id number] 10:24:00 Test Item Value Reference Range Interpretation [...] CA) 9.0 MG/DL 8.5-10.1 N HEPATIC FUNCTION [id number] 10:24:00 Test Item Value Reference Range Interpretation [...] 78 Unit/L 45-117 N code = ALKP) [id number] 10:24:00 Test Item Value Reference Range Interpretation Comments LIPASE (test code = LIP) 93 Unit/L 114-286 L URINALYSIS [id number] 10:11:00 Test Item Value Reference Range Interpretation [...] code = LEUU) DRUGS OF ABUSE SCREEN [id number] 10:11:00 Test Item Value Reference Range Interpretation [...] = SCcutoff <300 NG/ML [place]) CBC W/AUTO [id number] 10:07:00 Test Item Value Reference Range Interpretation [...] DIFF/SCN CRITERIA MDIFF) - XR CHEST 1 [id number] 09:28:00 Name: NINA NEELY [facility] : 1955 Age/S: 63 / F [id number] [place] Unit #: [id number] Loc: [place] [address] Phys: Nash Osei MD Acct: [id number] Dis Date: Status: REG ER PHONE #: [phone] Exam Date: 07/12/2018 09 FAX #: Reason: cp EXAMS: CPT: [id number] XR CHEST 1 V 06940 Fluoro Time: DAP (Gy m2): Air Kerma [...] PAGE 1 Signed Report Name: NINA NEELY : 1955 Age/S: 63 / F [id number] [place] Unit #: [id number] Loc: [place] [address] Phys: Nash Osei MD Acct: [id number] Dis Date: Status: REG ER PHONE #: [phone] Exam Date: 07/12/2018919 FAX #: Reason: cp EXAMS: CPT: [id number] XR CHEST 1 V 87723 Fluoro Time: DAP (Gy m2): Air Kerma (mGy): <Continued> Technologist: Breanna Kapadia, RT(R); Aleks Yan RT(R)(MR) Trnscb Date/Time: 07/12/2018 (927) Oralia.SP17 Orig Print D/T: S: 07/12/2018 (0931) PAGE 2 Signed Report[U] XRAY KNEE 4 OR MORE VWS LEFT [id number] 09:05:00Images acquired, not reported on this accession number.[facility] Physicians
--- NOTE | 2021-09-23 13:24 | RAD REPORT ---
EXAM DESCRIPTION: RAD - Chest Single View - 09/23/2021 1:05 pm CLINICAL HISTORY: weakness COMPARISON: Chest Single View dated 09/01/2020; Chest Single View dated 03/18/2020; Chest Single View dated 07/26/2019; Chest Pa And Lat (2 Views) dated 06/26/2019 FINDINGS: Lines: None. Lungs: Low lung volumes. Hazy opacities over the lung bases favored to be due to overlapping soft tis sues. Pleural: No significant pleural effusions or pneumothorax. Cardiac: Enlarged cardiac size. Bones: No acute fractures. Other: IMPRESSION: No acute cardiopulmonary disease.
[2021-09-23 13:46] LABS: Absolute Lymphocytes (CBC) 1.3 K/uL (0.7-4.9); Hematocrit 39.3 % (36.0-45.0); Lymphocytes % 28.4 % (15.3-44.8); MPV 7.8 fL (7.6-11.3); RBC Red Blood Cell Count 4.42 M/uL (3.86-4.86)
[2021-09-23 14:02] LABS: Bilirubin Direct 0.1 mg/dL (0-0.2); Bilirubin Total 0.3 mg/dL (0.2-1.0); Potassium 4.5 mmol/L (3.5-5.1); Protein, Total 7.5 g/dL (6.4-8.2); Troponin High Sensitivity 5.6 pg/mL (<58.9)
--- NOTE | 2021-09-23 14:59 | ER ---
Nurse's Notes [facility] Name: Nanci Barros Age: 66 yrs Sex: Female : 1955 Arrival Date: 09/23/2021 Time: 11:17 Bed 13 Private MD: Diagnosis: Other malaise and fatigue Presentation: 09/23 11:43 Chief complaint: Patient states: Body aches and general weakness x 3 days, denies jl7 N/V/D, denies cough congestion, denies fever, denies urinary symptoms. Coronavirus screen: At this time, the client does not indicate any symptoms associated with coronavirus-19. Ebola Screen: No symptoms or risks identified at this time. Initial Sepsis Screen: Does the patient meet any 2 criteria? No. Patient's initial sepsis screen is negative. Does the patient have a suspected source of infection? No. Patient's initial sepsis screen is negative. Risk Assessment: Do you want to hurt yourself or someone else? Patient reports no desire to harm self or others. Onset of symptoms was September 21, 2021. Care prior to arrival: None. 11:43 Method Of Arrival: Ambulatory jl7 11:43 Acuity: GET 3 jl7 Triage Assessment: 11:45 General: Appears in no apparent distress. uncomfortable, Behavior is calm, cooperative, jl7 appropriate for age. Pain: Complains of pain in all over. Neuro: Level of Consciousness is awake, alert, obeys commands, Oriented to person, place, time, situation. Cardiovascular: Patient's skin is warm and dry. Respiratory: Airway is patent Respiratory effort is even, unlabored, Respiratory pattern is regular, symmetrical. Derm: Skin is pink, warm \T\ dry. Historical: - Allergies: 11:45 PENICILLINS; jl7 - Home Meds: 11:45 amlodipine 5 mg tab 1 tab once daily [Active]; losartan 100 mg Oral tab once daily jl7 [Active]; metformin 500 mg Oral tab daily [Active]; - PMHx: 11:45 acid reflux; Diabetes - NIDDM; Hypertension; psoriasis; jl7 - Immunization history:: Client reports receiving the 2nd dose of the Covid vaccine. - Social history:: Smoking status: Patient denies any tobacco usage or history of. Screenin:13 Abuse screen: Denies threats or abuse. Nutritional screening: No deficits noted. ap3 Tuberculosis screening: No symptoms or risk factors identified. Fall Risk None identified. Assessment: 12:12 General: Appears uncomfortable, Behavior is calm, cooperative, appropriate for age. ap3 Pain: Complains of pain in generalized body aches Pain began Tuesday09/21/21. Neuro: Level of Consciousness is awake, alert, obeys commands, Oriented to person, place, time, situation, Speech is normal. Cardiovascular: Patient's skin is warm and dry. Respiratory: Airway is patent Respiratory effort is even, unlabored, Respiratory pattern is regular, symmetrical. 14:00 Reassessment: Patient and/or family updated on plan of care and expected duration. Pain ap3 level reassessed. Patient is alert, oriented x 3, equal unlabored respirations, skin warm/dry/pink. Vital Signs: 11:43 Pulse 87; Resp 17; Temp 97.1; Pulse Ox 99% ; Weight 116.57 kg; Height 5 ft. 6 in. jl7 (167.64 cm); Pain 10/10; 11:44 BP 111 / 99; mb7 11:43 Body Mass Index 41.48 (116.57 kg, 167.64 cm) jl7 NIH Stroke Scale Scores: 13:45 NIHSS Score: 0 [facility] ED Course: 11:17 Patient arrived in ED. am2 11:41 Emily Trinidad FNP is PHCP. jh7 11:41 Yuan Damon MD is Attending Physician. jh7 11:44 Bed in low position. Call light in reach. Side rails up X 1. Patient has correct mb7 armband on for positive identification. Door closed. Noise minimized. 11:45 Triage completed. jl7 11:45 Arm band placed on right wrist. jl7 11:50 Tanya Foy, WILMAR is Primary Nurse. ap3 12:10 Flu Sent. mb7 12:25 EKG done, by ED staff, reviewed by Emily WANG. mb7 12:48 Missed attempt(s): 24 gauge in left hand. Bleeding controlled, band aid applied, em1 catheter tip intact. 13:07 XRAY Chest (1 view) In Process Unspecified. EDMS 15:20 No provider procedures requiring assistance completed. IV discontinued, intact, ap3 bleeding controlled, No redness/swelling at site. Pressure dressing applied. Administered Medications: 14:59 Drug: Tylenol 650 mg Route: PO; ap3 15:21 Follow up: Response: No adverse reaction ap3 Outcome: 14:59 Discharge ordered by . 7 15:20 Discharged to home ambulatory. ap3 15:20 Condition: good 15:20 Discharge instructions given to patient, Instructed on discharge instructions, follow up and referral plans. Demonstrated understanding of instructions, follow-up care. 15:32 Patient left the ED. ap3 NIH Stroke Scale - NIH Stroke Score Date: 09/23/2021 Time: 13:45 Total Score = 0 1a. Level of Consciousness (LOC) - 0(Alert) 1b. Level of Consciousness (LOC) (Month \T\ Age) - 0(Both) 1c. LOC Commands (Open \T\ Closes Eyes/Patient Resource Coordinator) - 0(Both) 2. Best Gaze (Lateral Gaze Paresis) - 0(Normal) 3. Visual Field Loss - 0(No visual loss) 4. Facial Palsy - 0(Normal) 5a. Left Arm: Motor (10-second hold) - 0(No drift) 5b. Right Arm: Motor (10-second hold) - 0(No drift) 6a. Left Leg: Motor (5-second hold - always test supine) - 0(No drift) 6b. Right Leg: Motor (5-second hold - always test supine) - 0(No drift) 7. Limb Ataxia (finger/nose \T\ heel/hernandez - test with eyes open) - 0(Absent) 8. Sensory Loss (pinprick arms/legs/face) - 0(Normal) 9. Best Language: Aphasia (description/naming/reading) - 0(No aphasia) 10. Dysarthria (speech clarity - read or repeat words) - 0(Normal) 11. Extinction and Inattention (visual/tactile/auditory/spatial/personal) - 0(No abnormality) Initials: [facility] Signatures: Dispatcher [employer] Bryce Green1 Aditi Lai RN RN jl7 Tanya Sultana am2 Tanya Foy RN RN ap3 Cleo Miller mb7 Emily Trinidad FNP [employer] [facility]
[2021-09-23] MEDS ORDERED: ACETAMINOPHEN 325 MG TABLET ONE (15:00)
--- NOTE | 2021-09-23 15:00 | EDPHYS ---
Physician Documentation [facility] Name: Nanci Barros Age: 66 yrs Sex: Female : 1955 Arrival Date: 09/23/2021 Time: 11:17 Bed 13 Private MD: ED Physician Yuan Damon HPI: 09/23 13:45 This 66 yrs old Black Female presents to ER via Ambulatory with complaints of General jh7 Weakness, bodyaches. 13:45 Onset: The symptoms/episode began/occurred 2 day(s) ago. Associated signs and symptoms: 7 Pertinent negatives: abdominal pain, chest pain, fever, headache, shortness of breath, vomiting. The patient presents with complaints of malaise and body aches. She states that one of her family members was recently diagnosed with the flu. She denies dizziness, chest pain, shortness of breath, fever, headache, or any other symptoms.. Historical: - Allergies: 11:45 PENICILLINS; jl7 - Home Meds: 11:45 amlodipine 5 mg tab 1 tab once daily [Active]; losartan 100 mg Oral tab once daily jl7 [Active]; metformin 500 mg Oral tab daily [Active]; - PMHx: 11:45 acid reflux; Diabetes - NIDDM; Hypertension; psoriasis; jl7 - Immunization history:: Client reports receiving the 2nd dose of the Covid vaccine. - Social history:: Smoking status: Patient denies any tobacco usage or history of. ROS: 13:45 Constitutional: Negative for fever, chills, and weight loss, Eyes: Negative for injury, jh7 pain, redness, and discharge, Cardiovascular: Negative for chest pain, palpitations, and edema, Respiratory: Negative for shortness of breath, cough, wheezing, and pleuritic chest pain, Abdomen/GI: Negative for abdominal pain, nausea, vomiting, diarrhea, and constipation, MS/Extremity: Negative for injury and deformity, Skin: Negative for injury, rash, and discoloration, Neuro: Negative for headache, weakness, numbness, tingling, and seizure. 13:45 Constitutional: Positive for body aches, malaise. Exam: 13:45 Constitutional: This is a well developed, well nourished patient who is awake, alert, jh7 and in no acute distress. Cardiovascular: Regular rate and rhythm with a normal S1 and S2. No gallops, murmurs, or rubs. Normal PMI, no JVD. No pulse deficits. Respiratory: Lungs have equal breath sounds bilaterally, clear to auscultation and percussion. No rales, rhonchi or wheezes noted. No increased work of breathing, no retractions or nasal flaring. Neuro: Awake and alert, GCS 15, oriented to person, place, time, and situation. Cranial nerves II-XII grossly intact. Motor strength 5/5 in all extremities. Sensory grossly intact. Normal gait. Psych: Awake, alert, with orientation to person, place and time. Behavior, mood, and affect are within normal limits. Vital Signs: 11:43 Pulse 87; Resp 17; Temp 97.1; Pulse Ox 99% ; Weight 116.57 kg; Height 5 ft. 6 in. [facility] (167.64 cm); Pain 10/10; 11:44 BP 111 / 99; mb7 11:43 Body Mass Index 41.48 (116.57 kg, 167.64 cm) [facility] NIH Stroke Scale Scores: 13:45 NIHSS Score: 0 [facility] MDM: 13:50 Test interpretation: by ED physician or midlevel provider: ECG. [facility] 13:54 Data reviewed: EKG. [facility] 13:55 Patient medically screened. [facility] 16:03 Differential diagnosis: Malaise. Data reviewed: vital signs, nurses notes. Data [facility] interpreted: Pulse oximetry: is 99 %. Interpretation: normal. Test interpretation: by ED physician or midlevel provider: plain radiologic studies. ED course: The patient remained hemodynamically stable throughout her ER stay. Her labs and imaging were unremarkable. Informed the patient of these results. She declined giving a urine sample, and said she was fine going home to rest. ER return precautions were discussed, and if the patient developed any new concerning symptoms, she is to return. The patient understood the plan of care.. 09/23 11:50 Order name: Flu; Complete Time: 13:44 [facility] 09/23 11:50 Order name: Basic Metabolic Panel; Complete Time: 14:28 [facility] 09/23 11:50 Order name: CBC with Diff; Complete Time: 13:57 [facility] 09/23 11:50 Order name: LFT's; Complete Time: 14:28 [facility] 09/23 11:50 Order name: Magnesium; Complete Time: 14:28 [facility] 09/23 11:50 Order name: Troponin HS; Complete Time: 14:28 [facility] 09/23 11:50 Order name: XRAY Chest (1 view); Complete Time: 13:44 [facility] 09/23 11:50 Order name: EKG; Complete Time: 11:51 [facility] 09/23 11:50 Order name: Cardiac monitoring; Complete Time: 12:20 [facility] 09/23 11:50 Order name: EKG - Nurse/Tech; Complete Time: 12:20 [facility] 09/23 11:50 Order name: IV Saline Lock; Complete Time: 14:00 [facility] 09/23 12:28 Order name: Glucose, Ancillary Testing; Complete Time: 12:31 [facility] 09/23 11:50 Order name: Labs collected and sent; Complete Time: 14:00 [facility] 09/23 11:50 Order name: O2 Per Protocol; Complete Time: 12:10 [facility] 09/23 11:50 Order name: O2 Sat Monitoring; Complete Time: 12:10 [facility] 09/23 11:50 Order name: Fingerstick Glucose; Complete Time: 12:25 [facility] EC:52 Rate is 73 beats/min. Rhythm is regular, Normal Sinus Rhythm. QRS [place] is Normal. [place] 7 interval is normal at 162 msec. QRS interval is normal at 82 msec. QT interval is normal at 362 msec. T waves are Normal. No ST changes noted. Clinical impression: Normal ECG. Administered Medications: 14:59 Drug: Tylenol 650 mg Route: PO; ap3 15:21 Follow up: Response: No adverse reaction ap3 Disposition: 15:39 Co-signature as Attending Physician, Yuan Damon MD. rn Disposition Summary: 09/23/21 14:59 Discharge Ordered Location: Home [facility] Problem: new [facility] Symptoms: are unchanged [facility] Condition: Stable [facility] Diagnosis - Other malaise and fatigue [facility] Followup: [facility] - With: Private Physician - When: 1 - 2 days - Reason: Recheck today's complaints Discharge Instructions: - Discharge Summary Sheet [facility] - Fatigue [facility] Forms: - Medication Reconciliation Form [facility] - Thank You Letter [facility] NIH Stroke Scale - NIH Stroke Score Date: 09/23/2021 Time: 13:45 Total Score = 0 1a. Level of Consciousness (LOC) - 0(Alert) 1b. Level of Consciousness (LOC) (Month \T\ Age) - 0(Both) 1c. LOC Commands (Open \T\ Closes Eyes/Industrial Pharmacist) - 0(Both) 2. Best Gaze (Lateral Gaze Paresis) - 0(Normal) 3. Visual Field Loss - 0(No visual loss) 4. Facial Palsy - 0(Normal) 5a. Left Arm: Motor (10-second hold) - 0(No drift) 5b. Right Arm: Motor (10-second hold) - 0(No drift) 6a. Left Leg: Motor (5-second hold - always test supine) - 0(No drift) 6b. Right Leg: Motor (5-second hold - always test supine) - 0(No drift) 7. Limb Ataxia (finger/nose \T\ heel/hernandez - test with eyes open) - 0(Absent) 8. Sensory Loss (pinprick arms/legs/face) - 0(Normal) 9. Best Language: Aphasia (description/naming/reading) - 0(No aphasia) 10. Dysarthria (speech clarity - read or repeat words) - 0(Normal) 11. Extinction and Inattention (visual/tactile/auditory/spatial/personal) - 0(No abnormality) Initials: [facility] Signatures: Dispatcher [employer] EDMS Yuan Damon MD MD rn Leal, Jahala RN RN jl7 Tanya Foy RN RN ap3 Emily Trinidad, RUNNER ON RUNNER ON [facility] Corrections: (The following items were deleted from the chart) 14:58 14:44 Urine Dipstick-Ancillary ordered. [facility] ap3
[2021-09-23 15:37] VITALS: TEMP 97.1; O2SAT 99
[2021-09-23 15:38] VITALS: BP 111/99
--- NOTE | 2021-09-25 14:36 | EKG ---
Test Date: 2021-09-23 Test Time: 12:16:14 Orthopedic Specialist: MB MEASUREMENT RESULTS: Intervals: Rate: 73 NE: 162 QRSD: 82 QT: 362 QTc: 398 [place]: P: 68 NE: 162 QRS: 58 T: 22 INTERPRETIVE STATEMENTS: Normal sinus rhythm Normal ECG Compared to ECG 09/01/2020 08:14:32 No significant changes Electronically Signed On 09-25-21 14:32:37 CDT by Mack Caba
== END 2021-09-23 15:32 | disposition home or self-care (01) ==
LOC: ER 11:14
DX: R53.81 Other malaise (principal); R53.83 Other fatigue; M79.10 Myalgia, unspecified site; E11.9 Type 2 diabetes mellitus without complications; I10 Essential (primary) hypertension; Z88.0 Allergy status to penicillin
CPT/HCPCS: 36415; 71045; 80048; 80076; 82947; 83735; 84484; 85025; 87804; 93005; 99284

== ENCOUNTER 2022-02-06 09:04 | Emergency (ER) | payer OTHER ==
--- OUTSIDE RECORDS SUMMARY | 2022-02-06 09:08 | XMS REPORT | Continuity of Care Document ---
:1955 Author Organization Formerly [facility] t Address [address] [place] [address] Care Team Providers Name Role Phone Daniella AYERS, Harshad Primary Care Physician REESE SOLORIO Attending Clinician Unavailable Vianey EGAN, Leanneukwu Attending Clinician Felipe AYERS, Doug Barnes Attending Clinician Pob, Adc Lab Main Attending Clinician Unavailable GALINDO FITZGERALD M.D. Attending Clinician Unavailable DALE WILLIS M.D. Attending Clinician Unavailable Payers Payer Name Policy Type Policy Number Effective Date Expiration Date Bud wilson [facility] SARANYA [id number] 2020 00:00:00 Problems Condition Condition Condition Status Onset Resolution Last Treating Co mments Source Name Details Category Date Date Treatment Clinician Date Other skin Other skin Disease Active U nivers changes changes 12-23 ity of 00:00: [place] 00 [facility] Branch Urge Urge Disease Active Univers incontinen incontinen 12-23 it y of ce ce 00:00: [place] 00 Medical [facility] OAB OAB Disease Active Univers (overactiv (overactiv 12-23 it y of e bladder) e bladder) [place] Lichen Lichen Disease Active Univers sclerosus sclerosus 12-23 ity of 00:00: [place] 00 Medical Branch Hyperchole Hyperchole Disease Active U nivers sterolemia sterolemia 09-17 it y of 00:00: [place] 00 Medical Branch At risk At risk Disease Active Univers for for 09-17 ity of cardiovasc cardiovasc 00:[place] ular event ular event 00 Me dical Branch Stress Stress Disease Active Univers incontinen incontinen 09-17 it y of ce of ce of 00:00: [place] urine urine 00 Medical Branch Senile Senile Disease Active Univers osteoporos osteoporos 09-17 it y of is is 00:00: [place] 00 Medical Branch Need for Need for Disease Active Unive rs vaccinatio vaccinatio 09-17 it y of n against n against 00:[place] Streptococ Streptococ 00 Me dical cus cus Branch pneumoniae pneumoniae using using pneumococc pneumococc al al conjugate conjugate vaccine 13 vaccine 13 Edema of Edema of Disease Active Unive rs both legs both legs 09-17 ity of 00:00: [place] [facility] Gout Gout Disease Active 2020-05 Univers 2-09 ity of 00:00: [place] 00 Medical Branch Observatio Observatio Disease Active U nivers n after n after 02-14 ity of surgery surgery 00:00: [place] 00 Medical Branch Uterovagin Uterovagin Disease Active Overview : Univers al al 9 Formattin ity of prolapse, prolapse, 00:00: [place] of this [place] incomplete incomplete 00 note Me dical might be Branch different from the original. Added automatic ally from request for surgery [id number] Obesity, Obesity, Disease Active Unive rs morbid morbid 11-21 ity of (more than (more than 00:00: [place] 100 lbs 100 lbs 00 Medical over ideal over ideal Br anch weight or weight or BMI > 40) BMI > 40) Endometria Endometria Disease Active 2018-05 Overview : Univers l polyp l polyp 0-09 Formattin ity o f 00:00: g of this [place] 00 note Medical might be Branch different from the original. 05/04/19 - in office hysterosc opy revealed three benign endometri al polyps and an atrophic endometri al lining. Histology revealed benign endometri al polyps and inactive endometri um c/w atrophy. Nonalcohol Nonalcohol Disease Active U nivers ic fatty ic fatty 9-30 ity of liver liver 00:00: [place] disease disease 00 Medical without without Branch nonalcohol nonalcohol ic ic steatohepa steatohepa titis titis (CORNELL) (CORNELL) Abdominal Abdominal Disease Active Uni vers pain pain 9-26 ity of 00:00: [place] [address] Medical Branch Pneumonia Pneumonia Disease Active Uni vers 9-25 ity of 00:00: [place] [address] Medical Branch LASHAY (acute LASHAY (acute Disease Active U nivers kidney kidney 6-09 ity of injury) injury) 00:00: [place] [address] Medical Branch Obesity Obesity Disease Active Univers (BMI (BMI 6-09 ity of 30-39.9) 30-39.9) 00:00: [place] [address] Medical Branch Pancytopen Pancytopen Disease Active U nivers ia ia 5-27 ity of 00:00: [place] [address] Medical Branch ASCUS of ASCUS of Disease Active Overview: Un leonard cervix cervix 4-11 Formattin ity of with with 00:00: g of this [place] negative negative 00 note Medica l high [...] Univers lesion lesion 1-24 ity of 00:00: [place] [address] Medical Branch Abnormal Abnormal Disease Active Unive rs EKG EKG 1-12 ity of 00:00: [place] 00 Medical Branch Vulvar Vulvar Disease Active 2016-05 Univers itching itching 2-22 ity of 00:00: Medical Branch Vulvar Vulvar Disease Active 2016-05 Univers rash rash 2-22 ity of 00:00: [place] 00 Medical Branch Medicare Medicare Disease Active Overview: Un leonard annual annual 02-08 Formattin ity of wellness wellness 00:00: g of this [place] as visit, visit, 00 note Medical subsequent subsequent might be Branch different from the original. Added automatic ally from request for surgery [id number] Type 2 Type 2 Disease Active Univers diabetes diabetes 915 ity of mellitus mellitus 00:00: [place] without without 00 Medical complicati complicati Br anch on, on, without without long-term long-term current current use of use of insulin insulin Essential Essential Disease Active Uni vers hypertensi hypertensi 9-15 it y of on on 00:00: [place] 00 Medical Branch GERD GERD Disease Active Univers (gastroeso (gastroeso 9-15 it y of phageal phageal 00:00: [place] reflux reflux 00 Medical disease) disease) Branch No known No known Disease Metho di active active st problems problems Hospit a l History of History of Problem Resolve [facility] esophageal esophageal d Ph ysici reflux reflux ans History of History of Problem Resolve UT hypertensi hypertensi d Ph ysici on on ans History of History of Problem Resolve UT type 2 type 2 d Physici diabetes diabetes ans mellitus mellitus Extremity Extremity Problem Active UT pain pain Physici ans Perineal Perineal Problem Active UT rash rash Physici ans Vaginal Vaginal Problem Active UT dryness dryness Physici ans Allergies, Adverse Reactions, Alerts Allergy Allergy Status Severity Reaction(s) Onset Inactive Treating Comm ents Source Name Type Date Date Clinician Penicill Propensi Active Rash Method i ins ty to 7-08 st adverse 00:00: [facility]osp[facility] reaction 00 l s to drug Penicill Propensi Active Shortness of Univers in ty to Breath 9-13 ity of adverse 00:00: [place] reaction 00 Medical s Branch Penicill DA Active [place] 2013-05 [facility] [place] [facility] Penicill drug Active UT ins allergy Physici ans Family History Family Member Diagnosis Comments Start Date Stop Date Source Unknown Family Family history of Multiple [place] [facility] Member diabetes mellitus Family Members Unknown Family Family history of Multiple [facility] Member hypertension Family Members Mother Family history of [facility] diabetes mellitus Mother Family history of [facility] hypertension Mother Family history of [facility] malignant neoplasm of stomach Natural Diabetes [facility] Natural father Heart attack [facility] Natural father Heart disease [facility] Natural mother [facility] Natural sister Diabetes [facility] Father Family history of [facility] diabetes mellitus Father Family history of [facility] hypertension Sister Family history of [facility] diabetes mellitus Sister Family history of [facility] hypertension Social History Social Habit Start Date Stop Date Quantity Comments Source Alcohol intake 2018-11-27 2018-11-27 [facility] 00:00:00 00:00:00 non-drinker (finding) Tobacco use and 2017-02-04 2017-02-04 Smokeless tobacco Un iversity of exposure 00:00:00 00:00:00 non-user [facility] Sex Ass[birth year] [facility] 00:00:00 00:00:00 Smoking Status Start Date Stop Date Source Never smoked tobacco [facility] Medications Ordered Filled Start Stop Current Ordering Indication Dosage Frequency Signature Comments Components Source Medication Medication Date Date Medication? Clinician (SIG) Name Name Trospium 60 Yes [id number] 60mg Take 1 Univers mg capsule 6-13 capsule by ity of 00:00: mouth [place] 00 daily. Medical Branch AMLODIPINE Yes [id number] 2.5mg TAKE 1 Univers 2.5 mg 6-08 TABLET BY ity of tablet 00:00: MOUTH AT [place] 00 BEDTIME Medical Branch clobetasoL Yes [id number] Apply to Univers 0.05 % 6-01 area(s) 2 ity of ointment 00:00: (two) [place] 00 times Medical daily. Branch telmisartan Yes [id number] 0.5 tablet Univers -hydrochlor 4-28 po once ity o f othiazide 00:00: daily [place] 40-12.5 mg 00 Medical per tablet Branch metformin Yes [id number] 500mg Take 1 Univers ER 500 mg 4-28 tablet by ity o f 24 hr 00:00: mouth [place] tablet 00 daily with Medical breakfast. Branch lancets Yes [id number] Check Univ ers (ONE TOUCH 4-28 glucose ity of DELICA) 33 00:00: once daily [place] gauge Misc 00 before Medical breakfast; Branch ICD-10 code E11.9 blood sugar Yes [id number] Check Univers diagnostic 4-28 glucose ity of (ONETOUCH 00:00: once daily [place] ULTRA BLUE 00 before Medical TEST STRIP) breakfast; Br anch strip ICD-10 code E11.9 Blood-Gluco Yes [id number] Check Univers se Meter 4-28 glucose ity of (ONETOUCH 00:00: once daily [place] ULTRA2 00 before Medical METER) Kit breakfast; Bra [facility] Diagnosis code E11.9 colchicine Yes [id number] Take 2 Univers 0.6 mg 3-14 tabs po x ity of tablet 00:00: 1 dose PRN 00 gout Medical attack, Branch may take 1 tab 1 hour later if still in pain; Max 3 tabs per 24 hours. naproxen Yes [id number] 500mg Take 1 U nivers 500 mg 3-14 tablet by ity of tablet 00:00: mouth 2 [place] 00 (two) Medical times Branch daily with meals. allopurinoL 2020-05 Yes [id number] 100mg Take 1 Univers 100 mg 2-09 tablet by ity of tablet 00:00: mouth [place] 00 daily. Medical Branch ondansetron 2020-05 Yes [id number] 4mg Take 1 Univers 4 mg 1-12 tablet by ity of disintegrat 00:00: mouth [place] ing tablet 00 every 8 Medica l (eight) Branch hours as needed for Nausea and Vomiting (N/V). mupirocin 2 2020-05 Yes [id number] Apply to Univers % ointment 0-24 9104 area(s) 3 ity of 00:00: (three) [place] 00 times Medical daily. Branch pantoprazol Yes 20mg Take 20 mg Univers e 20 mg EC 1-05 by mouth ity o f tablet 09:31: daily. [place] 18 Medical Branch hydrocortis Yes hydrocorti Methodi one 2.5 % 11-27 sone 2.5 % st cream 09:18: topical Hospita 28 cream l alclomethas Yes alclometas Methodi one 7-08 one 0.05 % st (ACLOVATE) 09:18: topical Hosp leon 0.05 % 28 cream l cream clobetasol Yes clobetasol M ethodi (TEMOVATE) 11-27 0.05 % st 0.05 % 09:18: topical Hospita ointment 28 ointment l diclofenac Yes 2g 2 g. Methodi (VOLTAREN) 11-27 st 1 % gel 09:18: Hospita 28 l fluocinonid Yes fluocinoni Methodi e (LIDEX) 11-27 de 0.05 % st 0.05 % 09:18: topical Hospita ointment 28 ointment l blood sugar Yes Check Metho di diagnostic 6-[address] strips 00:00: once daily Hospi ta (ONETOUCH 00 before l ULTRA BLUE breakfast; TEST STRIP) ICD-10 strip test code E11.9 strips hydrOXYzine Yes Method i (ATARAX) 50 5-25 st MG tablet 00:00: Hospita 00 l amLODIPine Yes 5mg Take 5 mg Me thodi (NORVASC) 5 5-[address] mg tablet 00:00: Hospita 00 l betamethaso Yes betamethas Methodi ne, 830 one, st augmented, 00:00: augmented Ho spita (DIPROLENE) 00 0.05 % l 0.05 % topical ointment ointment blood-gluco Yes Check Metho di se meter 4-[address] (ONETOUCH 00:00: once daily Ho spita ULTRA2 00 before l METER) kit breakfast; Diagnosis code E11.9 metFORMIN Yes metformin Met hodi XR 1-[address] (GLUCOPHAGE 00:00: tablet,ext Hospita -XR) 500 mg 00 ended l 24 hr release 24 tablet hr Nystatin-Tr Nystatin-Tr Yes DALE Q0.5D APPLY 2 G M UT iamcinolone iamcinolone 1-09 LAZARO [place] Twice Physici [id number] 00:00: daily ans UNIT/GM-% UNIT/GM-% 00 External External Cream Cream Oxybutynin Oxybutynin Yes DALE 1 QD TAKE 1 UT Chloride ER Chloride ER 05-31 LAZARO Young TABLET Physici 5 MG Oral 5 MG Oral 00:00: DAILY an s Tablet Tablet 00 Extended Extended Release 24 Release 24 Hour Hour Estrace 0.1 Estrace 0.1 Yes DALE INSERT 1/4 UT MG/GM MG/GM 05-31 LAZARO Young APPLICATOR Ph ysici Vaginal Vaginal 00:00: FUL (1GM) an s Cream Cream 00 VAGINALLY TWICE WEEKLY. Losartan Losartan Yes UT Potassium Potassium Physi ci TABS TABS ans metFORMIN metFORMIN Yes UT HCl - 500 HCl - 500 Physi ci MG Oral MG Oral ans Tablet Tablet Immunizations Ordered Filled Immunization Date Status Comments [facility] Immunization Name Name SARS-COV-2 COVID-19 2021-02-19 Completed Unive rsity of PFIZER VACCINE 00:00:00 [facility] [place] [facility] SARS-COV-2 COVID-19 2020-07-03 Completed Unive rsity of PFIZER VACCINE 00:00:00 [facility] [place] [facility] SARS-COV-2 COVID-19 2020-06-12 Completed Unive rsity of PFIZER VACCINE 00:00:00 [facility] [place] [facility] Zoster Vaccine 2020-03-21 Completed University of Recombinant 00:00:00 [facility] Zoster Vaccine 2019-12-06 Completed University of Recombinant 00:00:00 [facility] Pneumococcal 2019-03-31 Completed [place] o f Polysaccharide, 00:00:00 [facility] ical PPSV23 (PNEUMOVAX) Branch Pneumococcal 2016-05-23 Completed [place] o f Polysaccharide, 00:00:00 [facility] ical PPSV23 (PNEUMOVAX) Branch Pneumococcal 2009-05-23 Completed [place] o f Polysaccharide, 00:00:00 [facility] ical PPSV23 (PNEUMOVAX) [place] Vital Signs Vital Name Observation Time Observation Value Comments Source Weight 2018-09-01 09:30:00 241.375 [lb_av] [facility] Body Mass Index 2018-09-01 09:30:00 38.96 kg/m2 [facility] Calculated Height 2018-09-01 09:30:00 66 [in_us] [facility] Height 2018-03-24 10:49:00 66 [in_us] [facility] Weight 2018-03-24 10:49:00 238 [lb_av] [facility] Body Mass Index 2018-03-24 10:49:00 38.41 kg/m2 [facility] Calculated Procedures Procedure Date / Time Performed Performing Clinician [facility] [U] XRAY KNEE 4 OR MORE VWS 2018-03-21 00:00:00 [facility] LEFT [id number] History of Cholecystectomy [facility] History of Treatment Of The [facility] Right Leg History of Shoulder Surgery [facility] Right History of Kidney Surgery [facility] Plan of Care Planned Activity Planned Date Details Comments Source Future Scheduled 2022-01-20 HEPATITIS B VACCINES Met [facility] Test 19:31:47 (1 of 3 - 3-dose series) [code = HEPATITIS B VACCINES (1 of 3 - 3-dose series)] Future Scheduled 2022-01-20 COVID-19 VACCINE (#1) [facility] Test 19:31:47 [code = COVID-19 VACCINE (#1)] Future Scheduled 2022-01-20 BREAST CANCER [facility] Test 19:31:47 SCREENING [code = BREAST CANCER SCREENING] Future Scheduled 2022-01-20 COLONOSCOPY SCREENING [facility] Test 19:31:47 [code = COLONOSCOPY SCREENING] Future Scheduled 2022-01-20 SHINGLES VACCINES (1 Met [facility] Test 19:31:47 of 2) [code = SHINGLES VACCINES (1 of 2)] Future Scheduled 2022-01-20 65+ [facility]OCOCCAL [facility] Test 19:31:47 VACCINE (2 - PCV) [code = 65+ PNEUMOCOCCAL VACCINE (2 - PCV)] Future Scheduled 2022-01-20 INFLUENZA VACCINE Method [facility] Test 19:31:47 [code = INFLUENZA VACCINE] Encounters Start End Encounter Admission Attending Care Care Encounter Source Date/Time Date/Time Type Type Clinicians Facility Department ID 2020-11-05 Outpatient LYNDSEY [facility] [id number] [place] 14:18:26 [place] [facility] 2021-12-04 2021-12-04 Telephone RO Win[place] [id number] [facility] [place] [facility] 00:00:00 00:00:00 Naeem OSPINA [id number] itPaola [id number] Sebas VÁSQUEZ [phone] Sc dical [facility]LY [facility] 044 [facility] 2020-08-22 2020-08-22 Telephone Felipe [facility] [id number] 00:00:00 00:00:00 [facility] [id number] [place] [id number] Professio [phone] [place] [address] Office [facility] One 2020-08-17 2020-08-17 Refill Felipe [facility] [id number] 00:00:00 00:00:00 [facility] [id number] [place] [id number] Professio [phone] [place] [address] Office [facility] One 2020-07-31 2020-07-31 Ella Felipe [facility] [id number] 00:00:00 00:00:00 [facility] [id number] [place] [id number] Professio [phone] [place] [address] Office Building One 2020-07-22 2020-07-22 Case Felipe [facility] [id number] 00:00:00 00:00:00 Management [facility] [id number] [place] [id number] Professio [phone] [place] [address] Office Building One 2020-07-14 2020-07-14 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 at [place] page Villalobos M.D. 2018-08-25 2018-08-25 [facility] [id number] [place] 09:15:00 09:15:00 t; GALINDO FITZGERALD M.D. Physici EDDIE, ans M.D. 2018-03-24 2018-03-24 [facility] [id number] [place] 09:00:00 09:00:00 t; GALINDO [facility]ALD M[facility] [place] apge Villalobos M.D. 2016-05-31 2016-05-31 [facility] [id number] [place] 11:00:00 11:00:00 t; DALE WILLIS Phy sici MICHELLE, M.D. ans M.D. Results Test Description Test Time Test Comments [...] NEGATIVE Leuk/mcL NEGATIVE DRUGS OF ABUSE SCREEN [id number] 13:56:00 Test Item Value Reference Range Interpretation [...] NEGATIVE SCcutoff <300 NG/ML [place]) RULE OUT WI [id number] 10:28:00 Test Item Value Reference Range Interpretation [...] results may stephanie yby method. BASIC METABOLIC [id number] 10:24:00 Test Item Value Reference Range Interpretation [...] CA) 9.0 MG/DL 8.5-10.1 N HEPATIC FUNCTION [id number] 10:24:00 Test Item Value Reference Range Interpretation [...] 78 Unit/L 45-117 N code = ALKP) [id number] 10:24:00 Test Item Value Reference Range Interpretation Comments LIPASE (test code = LIP) 93 Unit/L 114-286 L URINALYSIS [id number] 10:11:00 Test Item Value Reference Range Interpretation [...] code = LEUU) DRUGS OF ABUSE SCREEN [id number] 10:11:00 Test Item Value Reference Range Interpretation [...] = SCcutoff <300 NG/ML [place]) CBC W/AUTO [id number] 10:07:00 Test Item Value Reference Range Interpretation [...] DIFF/SCN CRITERIA MDIFF) - XR CHEST 1 [id number] 09:28:00 Name: NINA NEELY [facility] : 1955 Age/S: 63 / F [id number] Unit #: [id number] Loc: [place] [address] Phys: Nash Osei MD Acct: [id number] Dis Date: Status: REG ER PHONE #: [phone] Exam Date: 07/12/2018919 FAX #: Reason: cp EXAMS: CPT: [id number] XR CHEST 1V 86860 Fluoro Time: DAP (Gy m2): Air Kerma [...] Signed Report Name: NINA NEELY [facility] : 1955 Age/S: 63 / F [id number] Unit #: [id number] Loc: [place] [address] Phys: Nash Osei MD Acct: [id number] Dis Date: Status: REG ER PHONE #: [phone] Exam Date: 07/12/2018 0920 FAX #: Reason: cp EXAMS: CPT: [id number] XR CHEST 1 V 87394 Fluoro Time: DAP (Gy m2): Air Kerma (mGy): (Continued) Technologist: Breanna Kapadia, RT(R); Aleks Yan RT(R)(MR) Trnilb Date/Time: 07/12/2018 (927) [email or web address] Orig Print D/T: S: 07/12/2018 (0929) PAGE 2 Signed Report[U] XRAY KNEE 4 OR MORE VWS LEFT [id number] 09:05:00Images acquired, not reported on this accession number.[facility]
[2022-02-06] MEDS ORDERED: HYDROCODONE/APAP 5/325 MG TAB ONE (09:29)
[2022-02-06] MEDS ORDERED: KETOROLAC 30 MG/ML INJ ONE (09:29)
--- NOTE | 2022-02-06 10:18 | RAD REPORT ---
EXAM DESCRIPTION: USExtremity Venous Uni Ltd02/06/2022 10:08 am CLINICAL HISTORY: Right leg pain COMPARISON: 2017 FINDINGS: Right common femoral, superficial femoral, popliteal and right posterior tibial veins are compressible and demonstrate augmentation. Doppler demonstrates good flow. Grayscale, color and spectral analysis performed on all vessels IMPRESSION: No evidence of deep venous thrombosis involving the right lower extremity.
--- NOTE | 2022-02-06 11:10 | RAD REPORT ---
EXAM DESCRIPTION: RAD - Hip Right 2 View - 02/06/2022 10:36 am CLINICAL HISTORY: Right hip pain FINDINGS: No fracture or dislocation is seen. 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
--- NOTE | 2022-02-06 11:13 | EDPHYS ---
Physician Documentation [facility] Name: Nanci Barros Age: 66 yrs Sex: Female : 1955 Arrival Date: 02/06/2022 Time: 09:06 Bed 6 Private MD: ED Physician Mandy Curry HPI: 02/06 10:18 This 66 yrs old Black Female presents to ER via Ambulatory with complaints of Thigh jmm Pain. 10:18 The patient presents with pain. Onset: The symptoms/episode began/occurred gradually, 4 jmm day(s) ago. Modifying factors: The symptoms are alleviated by nothing. the symptoms are aggravated by weight bearing. Associated signs and symptoms: Pertinent negatives fever, swelling. This is a 66 year old female with a history of dm, htn, that presents to the ED with complaints of right thigh pain which radiates from the right hip. Denies known injury. Denies strenuous activity. . Historical: - Allergies: 09:10 PENICILLINS; iw - Home Meds: 09:10 amlodipine 5 mg tab 1 tab once daily [Active]; losartan 100 mg Oral tab once daily iw [Active]; metformin 500 mg Oral tab daily [Active]; nitrofurantoin macrocrystal 100 mg Oral cap [Active]; telmisartan-hydrochlorothiazid 80-25 mg Oral tab once daily [Active]; - PMHx: 09:10 acid reflux; Diabetes - NIDDM; Hypertension; psoriasis; iw - Immunization history:: Client reports receiving the 2nd dose of the Covid vaccine. - Social history:: Smoking status: Patient denies any tobacco usage or history of. ROS: 10:18 Constitutional: Negative for fever, chills, and weight loss, Cardiovascular: Negative jmm for chest pain, palpitations, and edema, Respiratory: Negative for shortness of breath, cough, wheezing, and pleuritic chest pain. 10:18 MS/extremity: Positive for pain. 10:18 All other systems are negative. Exam: 10:18 Constitutional: This is a well developed, well nourished patient who is awake, alert, jmm and in no acute distress. Head/Face: atraumatic. Eyes: EOMI, no conjunctival erythema appreciated ENT: Moist Mucus Membranes Neck: Trachea midline, Supple Chest/axilla: Normal chest wall appearance and motion. Cardiovascular: Regular rate and rhythm. No edema appreciated Respiratory: Normal respirations, no respiratory distress appreciated Abdomen/GI: Non distended Back: Normal ROM Skin: General appearance color normal 10:18 Musculoskeletal/extremity: right lateral thigh ttp, compartments are soft, pain elicited on hip flexion, full dorsalis pedis pulse, nvi. 10:18 Skin: Appearance: Color: normal in color. 10:18 Neuro: Orientation: is normal, Mentation: is normal, Memory: is normal. 10:18 Psych: Behavior/mood is pleasant, cooperative. Vital Signs: 09:10 BP 132 / 90; Pulse 94; Resp 16; Temp 98.0; Pulse Ox 100% on R/A; Weight 117.93 kg; iw Height 5 ft. 6 in. (167.64 cm); Pain 9; 09:10 Body Mass Index 41.96 (117.93 kg, 167.64 cm) iw MDM: 09:13 Patient medically screened. [facility] 11:11 Data reviewed: vital signs, nurses notes. Counseling: I had a detailed discussion with collin the patient and/or guardian regarding: the historical points, exam findings, and any diagnostic results supporting the discharge/admit diagnosis, radiology results, the need for outpatient follow up, to return to the emergency department if symptoms worsen or persist or if there are any questions or concerns that arise at home. ED course: xray revealed oa. Patient will be given antiinflammatories and advised to follow up with ortho for further evaluation. patient understood and agrees with the plan of care. . 02/06 09:17 Order name: Hip Right 2 View XRAY; Complete Time: 11:11 [facility] 02/06 09:17 Order name: US Extremity Venous Unilateral Ltd; Complete Time: 10:21 [facility] Administered Medications: : Drug: Ketorolac 30 mg Route: IM; Site: right deltoid; aa5 10:30 Follow up: Response: No adverse reaction; Marked relief of symptoms; Pain is decreased aa5 : Drug: HYDROcodone-acetaminophen 5 mg-325 mg 1 tabs Route: PO; aa5 10:30 Follow up: Response: No adverse reaction; Marked relief of symptoms; Pain is decreased aa5 Disposition: 16:11 STAFF ATTESTATION STATEMENT: I was immediately available onsite in the emergency sd2 department for consultation in the care of this patient. I did not see or examine this patient. Mandy Curry MD. Disposition Summary: 02/06/22 11:13 Discharge Ordered Location: Home [facility] Condition: Stable [facility] Diagnosis - Pain in right hip [facility] Followup: jmm - With: Private Physician - When: 2 - 3 days - Reason: Recheck today's complaints, Continuance of care, Re-evaluation by your physician Followup: jmm - With: Jelani Galarza MD - When: 2 - 3 days - Reason: Recheck today's complaints, Continuance of care, Re-evaluation by your physician Discharge Instructions: - Discharge Summary Sheet [facility] - Hip Pain [facility] Forms: - Medication Reconciliation Form [facility] - Thank You Letter [facility] - Antibiotic Education [facility] - Prescription Opioid Use [facility] Prescriptions: - Pepcid 20 mg Oral Tablet - take 1 tablet by ORAL route every 12 hours for 10 days; 20 tablet; Refills: 0, [facility] Product Selection Permitted - Diclofenac Sodium 75 mg Oral Tablet Sustained Release - take 1 tablet by ORAL route 2 times per day; 30 tablet; Refills: 0, Product [facility] Selection Permitted - orphenadrine citrate 100 mg Oral Tablet Sustained Release - take 1 tablet by ORAL route 2 times per day As needed; 20 tablet; Refills: 0, [facility] Product Selection Permitted Signatures: Dispatcher [employer] Shaka Grant PA PA Eneida Hu, RN Valeria Vaughan RN RN aa5 Mandy Curry MD MD sd2
--- NOTE | 2022-02-06 11:13 | ER ---
Nurse's Notes [facility] Name: Nanci Barros Age: 66 yrs Sex: Female : 1955 Arrival Date: 02/06/2022 Time: 09:06 Bed 6 Private MD: Diagnosis: Pain in right hip Presentation: 02/06 09:09 Chief complaint: Patient states: pain in right thigh X 4 days , radiates up into hip, iw denies injury or fall, has been taking tylenol and using Aspercreme. Coronavirus screen: At this time, the client does not indicate any symptoms associated with coronavirus-19. Ebola Screen: Patient negative for fever greater than or equal to 101.5 degrees Fahrenheit, and additional compatible Ebola Virus Disease symptoms Patient denies exposure to infectious person. Patient denies travel to an Ebola-affected area in the 21 days before illness onset. No symptoms or risks identified at this time. Initial Sepsis Screen: Does the patient meet any 2 criteria? No. Patient's initial sepsis screen is negative. Does the patient have a suspected source of infection? No. Patient's initial sepsis screen is negative. Risk Assessment: Do you want to hurt yourself or someone else? Patient reports no desire to harm self or others. Onset of symptoms was February 02, 2022. 09:09 Method Of Arrival: Ambulatory iw 09:09 Acuity: GET 3 iw Historical: - Allergies: 09:10 PENICILLINS; iw - Home Meds: 09:10 amlodipine 5 mg tab 1 tab once daily [Active]; losartan 100 mg Oral tab once daily iw [Active]; metformin 500 mg Oral tab daily [Active]; nitrofurantoin macrocrystal 100 mg Oral cap [Active]; telmisartan-hydrochlorothiazid 80-25 mg Oral tab once daily [Active]; - PMHx: 09:10 acid reflux; Diabetes - NIDDM; Hypertension; psoriasis; iw - Immunization history:: Client reports receiving the 2nd dose of the Covid vaccine. - Social history:: Smoking status: Patient denies any tobacco usage or history of. Screenin:20 Abuse screen: Denies threats or abuse. Nutritional screening: No deficits noted. aa5 Tuberculosis screening: No symptoms or risk factors identified. Fall Risk None identified. Assessment: 09:20 General: Appears uncomfortable, Behavior is calm, cooperative. Pain: Complains of pain aa5 in right quadriceps Pain radiates to right hip Pain currently is 9 out of 10 on a pain scale. Quality of pain is described as sharp, Pain began 4 days ago Is continuous. Neuro: Level of Consciousness is awake, alert, obeys commands, Oriented to person, place, time, situation. Cardiovascular: Heart tones S1 S2 present Rhythm is regular. Respiratory: Airway is patent Respiratory effort is even, unlabored, Respiratory pattern is regular, symmetrical. GI: No signs and/or symptoms were reported involving the gastrointestinal system. : No signs and/or symptoms were reported regarding the genitourinary system. EENT: No signs and/or symptoms were reported regarding the EENT system. Derm: Skin is dry, Skin is normal, Skin temperature is warm. Musculoskeletal: Range of motion: intact in all extremities, Reports pain in right quadriceps. 10:30 Reassessment: Patient states feeling better. Patient states symptoms have improved. aa5 Pain: Pain currently is 2 out of 10 on a pain scale. Neuro: Level of Consciousness is awake, alert, obeys commands, Oriented to person, place, time, situation. Respiratory: Airway is patent Respiratory effort is even, unlabored, Respiratory pattern is regular, symmetrical. Derm: Skin is dry, Skin is normal, Skin temperature is warm. 10:33 Reassessment: Awaiting radiology results, pt sitting up in bed watching TV . aa5 Vital Signs: 09:10 BP 132 / 90; Pulse 94; Resp 16; Temp 98.0; Pulse Ox 100% on R/A; Weight 117.93 kg; iw Height 5 ft. 6 in. (167.64 cm); Pain 9/10; 09:10 Body Mass Index 41.96 (117.93 kg, 167.64 cm) iw ED Course: 09:06 Patient arrived in ED. as 09:09 Shaka Bryant PA is PHCP. collin 09:09 Mandy Curry MD is Attending Physician. jmm 09:10 Triage completed. iw 09:10 Arm band placed on. iw 09:16 Valeria Causey, RN is Primary Nurse. aa5 09:20 Patient has correct armband on for positive identification. Bed in low position. Call aa5 light in reach. Side rails up X2. 10:10 US Extremity Venous Unilateral Ltd In Process Unspecified. EDMS 10:38 Hip Right 2 View XRAY In Process Unspecified. EDMS 11:12 Jelani Galarza MD is Referral Physician. [facility] 11:31 No provider procedures requiring assistance completed. Patient did not have IV access iw during this emergency room visit. Administered Medications: 09:26 Drug: Ketorolac 30 mg Route: IM; Site: right deltoid; aa5 10:30 Follow up: Response: No adverse reaction; Marked relief of symptoms; Pain is decreased aa5 09:26 Drug: HYDROcodone-acetaminophen 5 mg-325 mg 1 tabs Route: PO; aa5 10:30 Follow up: Response: No adverse reaction; Marked relief of symptoms; Pain is decreased aa5 Medication: 11:31 VIS not applicable for this client. iw Outcome: 11:13 Discharge ordered by . [facility] 11:31 Discharged to home ambulatory. iw 11:31 Condition: good 11:31 Discharge instructions given to patient, Instructed on discharge instructions, follow up and referral plans. medication usage, Demonstrated understanding of instructions, follow-up care, medications, Prescriptions given X 3. 11:31 Patient left the ED. iw Signatures: Dispatcher [employer] EDMS Shaka Bryant PA PA jmm Martinez, Amelia as Williams, Irene, RN RN Valeria Causey, RN RN aa5
[2022-02-07 20:33] VITALS: BP 132/90; TEMP 98; O2SAT 100
== END 2022-02-06 11:31 | disposition home or self-care (01) ==
LOC: ER 09:04
DX: M25.551 Pain in right hip (principal)
CPT/HCPCS: 93971; 96372; 99283

== ENCOUNTER 2022-04-18 13:03 | Emergency (ER) | payer OTHER ==
--- OUTSIDE RECORDS SUMMARY | 2022-04-18 13:12 | XMS REPORT | Continuity of Care Document ---
:1955 Author Organization [facility] t Address [address] [place] [address] Care Team Providers Name Role Phone Stef Chatmanjonathan Primary Care Physician CASEY WILEY Attending Clinician Unavailable SONDRA KENNY Attending Clinician Unavailable REESE SOLORIO Attending Clinician Unavailable KEHINDE PENA Attending Clinician Unavailable ALEXANDRIA LOWE Attending Clinician Unavailable Doctor Unassigned, [place] Attending Clinician Unavailable AMY MINER Attending Clinician Unavailable Amy Marin Attending Clinician Unknown, Attending Attending Clinician Unavailable Michael Brewer MD Attending Clinician Pob, [facility] Main Attending Clinician Unavailable 2, [facility] Attending Clinician Unavailable MICHAEL BREWER Attending Clinician Unavailable Naeem Winters NP Attending Clinician NIRANJAN KRISTIAN MAXI Attending Clinician Unavailable Harper Bob Attending Clinician Thien Chatman MD Attending Clinician Kehinde Pena PA-C Attending Clinician LALO SAVAGE Attending Clinician Unavailable THIEN CHATMAN Attending Clinician Unavailable Candice Baugh Attending Clinician CANDICE CHRISTIANSEN Attending Clinician Unavailable Nurse, Ad[facility] Pob Immunization Attending Clinician Unavailable Lalo Savage DO Attending Clinician CHERELLE DÍAZ Attending Clinician Unavailable TRAVON WU Attending Clinician Unavailable FABIO MCMAHON Attending Clinician Unavailable UNKNOWN, ATTENDING Attending Clinician Unavailable DILLON ALEMAN Attending Clinician Unavailable LATESHA REYNOSO Attending Clinician Unavailable JAMISON KENNEDY Attending Clinician Unavailable GALINDO FITZGERALD M.D. Attending Clinician Unavailable DALE WILLIS M.D. Attending Clinician Unavailable CASEY WILEY Admitting Clinician Unavailable SONDRA KENNY Admitting Clinician Unavailable ALEXANDRIA LOWE Admitting Clinician Unavailable MICHAEL BREWER Admitting Clinician Unavailable Payers Payer Name Policy Type Policy Number Effective Date Expiration Date S [facility] [id number] 2020 HEALTHCARE/AARP 00:00:00 [facility] WELLMED [id number] 2020 00:00:00 WELLMED/AARP [id number] 2019 MEDICARE ADVANTAGE 00:00:00 Problems Condition Condition Condition Status Onset Resolution Last Treating Co mments Source Name Details Category Date Date Treatment Clinician Date Other skin Other skin Disease Active U nivers changes changes 12-23 ity of 00:: [place] [facility] Urge Urge Disease Active Univers incontinen incontinen 12-23 it y of ce ce 00:00: [place] [facility] OAB OAB Disease Active Univers (overactiv (overactiv 12-23 it y of e bladder) e bladder[place] [facility] Lichen Lichen Disease Active Univers sclerosus sclerosus 12-23 ity of 00:00: [place] 00 Medical Branch Hyperchole Hyperchole Disease Active U nivers sterolemia sterolemia 09-17 it y of 00:00: 00 Medical Branch At risk At risk [...] both legs 09-17 ity of 00:00: [place] 00 Medical [facility] Need for Need for Disease Active Unive rs vaccinatio vaccinatio 09-17 it y of n against n against 00:[place] Streptococ Streptococ 00 Me dical cus cus Branch pneumoniae pneumoniae using using pneumococc pneumococc al al conjugate conjugate vaccine 13 vaccine 13 Gout Gout Disease Active 2020-05 Univers 209 ity of 00:00: [place] 00 Medical Branch [...] Added automatic ally from request for surgery [id number] Obesity, Obesity, Disease Active Unive rs morbid morbid 7 ity of (more than (more than 00:00: [...] fatty 9-30 ity of liver liver 00:00: [place] disease disease 00 Medical without without Branch nonalcohol nonalcohol ic ic steatohepa steatohepa titis titis (CORNELL) (CORNELL) Abdominal Abdominal Disease Active Uni vers pain pain 9-26 ity of 00:00: [place] [facility] Pneumonia Pneumonia Disease Active Uni vers 9-25 ity of 00:00: [place] [facility] LASHAY (acute LASHAY (acute Disease Active U nivers kidney kidney 6-09 ity of injury) injury) 00:00: [place] [address] Medical Branch Obesity Obesity Disease Active Univers (BMI (BMI 6-09 ity of 30-39.9) 30-39.9) 00:00: [place] [facility] Pancytopen Pancytopen Disease Active U nivers ia ia 5-27 ity of 00:00: [place] [address] Medical Branch ASCUS of ASCUS of Disease Active Overview: Un leonard cervix cervix 4-11 Formattin ity of with with 00:00: g of this [place] negative negative 00 note Medica l high [...] Univers lesion lesion 1-24 ity of 00:00: [place] [address] Medical Branch Abnormal Abnormal Disease Active Unive rs EKG EKG 1-12 ity of 00:00: [place] [facility] Vulvar Vulvar Disease Active 2016-05 Univers itching itching 2-22 ity of 00:00: [place] [facility] Vulvar Vulvar Disease Active 2016-05 Univers rash rash 2-22 ity of 00:00: [place] 00 Medical Branch Medicare Medicare Disease Active Overview: Un leonard annual annual 02-08 Formattin ity of wellness wellness 00:00: g of this [place] as visit, visit, 00 note Medical subsequent subsequent might be Branch different from the original. Added automatic ally from request for surgery [id number] Type 2 Type 2 Disease Active Univers diabetes diabetes 02-04 ity of mellitus mellitus 00:00: [place] without without 00 Medical complicati complicati Br anch on, on, without without long-term long-term current current use of use of insulin insulin Essential Essential Disease Active Uni vers hypertensi hypertensi 15 it y of on on 00:00: [place] 00 Medical Branch GERD GERD Disease Active Univers (gastroeso (gastroeso 02-04 it y of phageal phageal 00:00: [place] [...] Active Rash Method i ins ty to 11-27 st adverse 00:00: [facility] reaction 00 l s to drug PENICILL DRUG Active Rash Univers IN INGREDI 9- ity of 00:00: [place] 00 Medical Branch Penicill Propensi Active Shortness of Univers in ty to Breath 9-13 ity of adverse 00:00: [place] reaction 00 Medical s Branch Penicill DA Active [place] 2013-05 [facility]04 [place] [facility] Penicill drug Active [facility] ins allergy Physici ans Family History Family Member Diagnosis Comments Start Date Stop Date Source Natural Diabetes [facility] Natural father Heart attack [facility] Natural father Heart disease [facility] mother [facility] Natural sister Diabetes [facility] Unknown Family Family history of Multiple [facility] Member diabetes mellitus Family Members Unknown Family Family history of Multiple [facility] Member hypertension Family Members Mother Family history of [facility] diabetes mellitus Mother Family history of [facility] hypertension Mother Family history of [facility] malignant neoplasm of stomach Father Family history of [facility] diabetes mellitus Father Family history of [facility] hypertension Sister Family history of [facility] diabetes mellitus Sister Family history of [facility] hypertension Social History Social Habit Start Date Stop Date Quantity Comments Source Exposure to 2022-03-16 2022-03-26 Not sure [facility] [place] [facility]-CoV-2 00:00:00 09:33:00 [facility] [place] Tobacco use and 2021-12-23 2021-12-23 Smokeless tobacco Un iversity of exposure 00:00:00 00:00:00 non-user [facility] Alcohol intake 2018-11-27 2018-11-27 [facility] 00:00:00 00:00:00 non-drinker (finding) Sex [birth year] [facility] [place] [facility] 00:00:00 00:00:00 Smoking Status Start Date Stop Date Source Never smoked tobacco [facility] Medications Ordered Filled Start Stop Current Ordering Indication Dosage Frequency Signature Comments Components Source Medication Medication Date Date Medication? Clinician (SIG) Name Name pantoprazol 2021-05 Yes 20mg Take 20 mg Univers e 20 mg EC 0-26 by mouth ity o f tablet 09:05: daily. [address] pantoprazol 2021-05 Yes 20mg Take 20 mg Univers e 20 mg EC 0-26 by mouth ity o f tablet 09:05: daily. [address] pantoprazol 2021-05 Yes 20mg Take 20 mg Univers e 20 mg EC 0-26 by mouth ity o f tablet 09:05: daily. [address] pantoprazol 2021-05 Yes 20mg Take 20 mg Univers e 20 mg EC 0-26 by mouth ity o f tablet 09:05: daily. [address] pantoprazol 2021-05 Yes 20mg Take 20 mg Univers e 20 mg EC 0-26 by mouth ity o f tablet 09:05: daily. [address] pantoprazol 2021-05 Yes 20mg Take 20 mg Univers e 20 mg EC 0-26 by mouth ity o f tablet 09:05: daily. [address] pantoprazol 2021-05 Yes 20mg Take 20 mg Univers e 20 mg EC 0-26 by mouth ity o f tablet 09:05: daily. [address] D5W-LR IV 2021-05 Yes 1000mL at 125 Univ ers infusion 0-20 mL/hr, IV ity of 1,000 mL 15:15: [place] CONTINUOUS Medical , Starting Branch on [place] 03/11/22 at 1015, Until Discontinu ed, Routine D5W-LR IV 2021-05 Yes 1000mL at 125 Univ ers infusion 0-20 mL/hr, IV ity of 1,000 mL 15:15: [place] CONTINUOUS Medical , Starting Branch on [place] 03/11/22 at 1015, Until Discontinu ed, Routine clostridium 2021-05- No PRN, Unive rs botulinum 0-20 10-20 Starting ity o f toxin 14:44: 16:45 on [facility] (BOTOX) 00 :53 03/11/22 Medical injection at 0944, Branch Until [place] 03/11/22 at 1145, Routine, Intra-op lactated 2021-05- No 1000mL at 42 Unive rs ringers IV 0-20 10-20 mL/hr, ity of infusion 12:30: 12:50 1,000 mL, [place] 1,000 mL 00 :00 IV Medical Infusion, Branch ONCE, 1 dose, On [place] 03/11/22 at 0730, Routine, DSU Pre-op lactated 2021-05- No 1000mL at 42 Unive rs ringers IV 0-20 10-20 mL/hr, ity of infusion 12:30: 12:50 1,000 mL, [place] 1,000 mL 00 :00 IV Medical Infusion, Branch ONCE, 1 dose, On [place] 03/11/22 at 0730, Routine, DSU Pre-op pantoprazol 2021-05 Yes 20mg Take 20 mg Univers e 20 mg EC 0-20 by mouth ity o f tablet 10:12: daily. [address] pantoprazol 2021-05 Yes 20mg Take 20 mg Univers e 20 mg EC 0-20 by mouth ity o f tablet 10:12: daily. [address] pantoprazol Yes 20mg Take 20 mg Univers e 20 mg EC 9-27 by mouth ity o f tablet 16:48: daily. [address] pantoprazol Yes 20mg Take 20 mg Univers e 20 mg EC 9-27 by mouth ity o f tablet 16:48: daily. [address] Nitrofurant 2021- Yes [id number] 100mg Take 1 Univers oin&Nit. 02-15 capsule by ity of [place] 00:00: 04:59 [place] (MACROBID) 00 :00 bedtime Medica l 100 mg for 6 Branch capsule doses. 3 days prior to procedure and 3 days after Nitrofurant 2021- Yes [id number] 100mg Take 1 Univers oin&Nit. 02-15 capsule by ity of Mac[place] 00:00: 04:59 [place] ([place]CROBID) 00 :00 bedtime Medica l 100 mg for 6 Branch capsule doses. 3 days prior to procedure and 3 days after Nitrofurant 2021- Yes [id number] 100mg Take 1 Univers oin&Nit. 02-15 capsule by ity of Macroc[place] 00:00: 04:59 [place] (MACROBID) 00 :00 bedtime Medica l 100 mg for 6 Branch capsule doses. 3 days prior to procedure and 3 days after Nitrofurant 2021- No [id number] 100mg Take 1 Univers oin&Nit. 02-15 capsule by ity of Macrocryst 00:00: 04:59 [place] (MACROBID) 00 :00 bedtime Medica l 100 mg for 6 Branch capsule doses. 3 days prior to procedure and 3 days after Nitrofurant 2021- No [id number] 100mg Take 1 Univers oin&Nit. 02-15 capsule by ity of Mac[place] 00:00: 04:59 [place] (MACROBID) 00 :00 bedtime Medica l 100 mg for 6 Branch capsule doses. 3 days prior to procedure and 3 days after semaglutide Yes [id number] 1mg inject 1 Univers (OZEMPIC) 1 8-11 mg under ity of mg/dose (4 00:00: the skin [place] mg/3 mL) 00 weekly. Medical Ij Branch semaglutide Yes [id number] .25mg inject Univers (OZEMPIC) 8-11 0.25 mg ity of 0.25 mg or 00:00: [place] the [place] 0.5 mg(2 00 skin Medical mg/1.5 mL) weekly. Branch PnIj Direction: Inject 0.25mg qWeek x 4 Weeks; then Inject 0.5mg qWeek x 4Weeks; then inject 1mg qWeek. semaglutide 0 Yes [id number] 1mg inject 1 Univers (OZEMPIC) 1 8-11 mg under ity of mg/dose (4 00:00: the skin [place] mg/3 mL) 00 weekly. [facility] semaglutide Yes [id number] .25mg inject Univers (OZEMPIC) 8-11 0.25 mg ity of 0.25 mg or 00:00: [place] the [place] 0.5 mg(2 00 skin Medical mg/1.5 mL) weekly. Branch PnIj Direction: Inject 0.25mg qWeek x 4 Weeks; then Inject 0.5mg qWeek x 4Weeks; then inject 1mg qWeek. semaglutide Yes [id number] 1mg inject 1 Univers (OZEMPIC) 1 8-11 mg under ity of mg/dose (4 00:00: the skin [place] mg/3 mL) [address] [facility] Branch semaglutide Yes [id number] .25mg inject Univers (OZEMPIC) 8-11 0.25 mg ity of 0.25 mg or 00:00: [place] 0.5 mg(2 00 skin Medical mg/1.5 mL) weekly. Branch PnIj Direction: Inject 0.25mg qWeek x 4 Weeks; then Inject 0.5mg qWeek x 4Weeks; then inject 1mg qWeek. semaglutide Yes [id number] 1mg inject 1 Univers (OZEMPIC) 1 8-11 mg under ity of mg/dose (4 00:00: the skin [place] mg/3 mL) 00 weekly. Medical Ij Branch semaglutide 0 Yes [id number] .25mg inject Univers (OZEMPIC) 8-11 0.25 mg ity of 0.25 mg or 00:00: [place] the [place] 0.5 mg(2 00 skin Medical mg/1.5 mL) weekly. Branch PnIj Direction: Inject 0.25mg qWeek x 4 Weeks; then Inject 0.5mg qWeek x 4Weeks; then inject 1mg qWeek. semaglutide 0 Yes [id number] 1mg inject 1 Univers (OZEMPIC) 1 8-11 mg under ity of mg/dose (4 00:00: the skin [place] mg/3 mL) 00 weekly. [facility] semaglutide 0 Yes [id number] .25mg inject Univers (OZEMPIC) 8-11 0.25 mg ity of 0.25 mg or 00:00: [place] the [place] 0.5 mg(2 00 skin Medical mg/1.5 mL) weekly. Branch PnIj Direction: Inject 0.25mg qWeek x 4 Weeks; then Inject 0.5mg qWeek x 4Weeks; then inject 1mg qWeek. semaglutide 0 Yes [id number] 1mg inject 1 Univers (OZEMPIC) 1 8-11 mg under ity of mg/dose (4 00:00: the skin [place] mg/3 mL) 00 weekly. [facility] semaglutide 2021-0 Yes [id number] .25mg inject Univers (OZEMPIC) 8-11 0.25 mg ity of 0.25 mg or 00:00: [place] the [place] 0.5 mg(2 00 skin Medical mg/1.5 mL) weekly. Branch PnIj Direction: Inject 0.25mg qWeek x 4 Weeks; then Inject 0.5mg qWeek x 4Weeks; then inject 1mg qWeek. semaglutide 0 Yes [id number] 1mg inject 1 Univers (OZEMPIC) 1 8-11 mg under ity of mg/dose (4 00:00: the skin [place] mg/3 mL) 00 weekly. [facility] semaglutide 2021-0 Yes [id number] .25mg inject Univers (OZEMPIC) 8-11 0.25 mg ity of 0.25 mg or 00:00: [place] the [place] 0.5 mg(2 00 skin Medical mg/1.5 mL) weekly. Branch PnIj Direction: Inject 0.25mg qWeek x 4 Weeks; then Inject 0.5mg qWeek x 4Weeks; then inject 1mg qWeek. semaglutide 0 Yes [id number] 1mg inject 1 Univers (OZEMPIC) 1 8-11 mg under ity of mg/dose (4 00:00: the skin [place] mg/3 mL) 00 weekly. Medical PnIj Branch semaglutide 0 Yes [id number] .25mg inject Univers (OZEMPIC) 8-11 0.25 mg ity of 0.25 mg or 00:00: [place] the [place] 0.5 mg(2 00 skin Medical mg/1.5 mL) weekly. Branch PnIj Direction: Inject 0.25mg qWeek x 4 Weeks; then Inject 0.5mg qWeek x 4Weeks; then inject 1mg qWeek. semaglutide 0 Yes [id number] 1mg inject 1 Univers (OZEMPIC) 1 8-11 mg under ity of mg/dose (4 00:00: the skin [place] mg/3 mL) 00 weekly. Medical Ij Branch semaglutide 0 Yes [id number] .25mg inject Univers (OZEMPIC) 8-11 0.25 mg ity of 0.25 mg or 00:00: [place] the [place] 0.5 mg(2 00 skin Medical mg/1.5 mL) weekly. Branch PnIj Direction: Inject 0.25mg qWeek x 4 Weeks; then Inject 0.5mg qWeek x 4Weeks; then inject 1mg qWeek. semaglutide 2021-0 Yes [id number] 1mg inject 1 Univers (OZEMPIC) 1 8-11 mg under ity of mg/dose (4 00:00: the skin [place] mg/3 mL) 00 weekly. Medical PnIj Branch semaglutide 2021-0 Yes [id number] .25mg inject Univers (OZEMPIC) 8-11 0.25 mg ity of 0.25 mg or 00:00: under the [place] 0.5 mg(2 00 skin Medical mg/1.5 mL) weekly. Branch PnIj Direction: Inject 0.25mg qWeek x 4 Weeks; then Inject 0.5mg qWeek x 4Weeks; then inject 1mg qWeek. semaglutide 2021-0 Yes [id number] 1mg inject 1 Univers (OZEMPIC) 1 8-11 mg under ity of mg/dose (4 00:00: the skin [place] mg/3 mL) 00 weekly. Medical PnIj Branch semaglutide 2021-0 Yes [id number] .25mg inject Univers (OZEMPIC) 8-11 0.25 mg ity of 0.25 mg or 00:00: under the [place] 0.5 mg(2 00 skin Medical mg/1.5 mL) weekly. Branch PnIj Direction: Inject 0.25mg qWeek x 4 Weeks; then Inject 0.5mg qWeek x 4Weeks; then inject 1mg qWeek. semaglutide 2021-0 Yes [id number] 1mg inject 1 Univers (OZEMPIC) 1 8-11 mg under ity of mg/dose (4 00:00: the skin [place] mg/3 mL) 00 weekly. Medical Ij Branch semaglutide 2021-0 Yes [id number] .25mg inject Univers (OZEMPIC) 8-11 0.25 mg ity of 0.25 mg or 00:00: under the [place] 0.5 mg(2 00 skin Medical mg/1.5 mL) weekly. Branch PnIj Direction: Inject 0.25mg qWeek x 4 Weeks; then Inject 0.5mg qWeek x 4Weeks; then inject 1mg qWeek. semaglutide 2021-0 Yes [id number] 1mg inject 1 Univers (OZEMPIC) 1 8-11 mg under ity of mg/dose (4 00:00: the skin [place] mg/3 mL) [address] [facility] Branch semaglutide 2021-0 Yes [id number] .25mg inject Univers (OZEMPIC) 8-11 0.25 mg ity of 0.25 mg or 00:00: under the [place] 0.5 mg(2 00 skin Medical mg/1.5 mL) weekly. Branch PnIj Direction: Inject 0.25mg qWeek x 4 Weeks; then Inject 0.5mg qWeek x 4Weeks; then inject 1mg qWeek. semaglutide 2021-0 Yes [id number] 1mg inject 1 Univers (OZEMPIC) 1 8-11 mg under ity of mg/dose (4 00:00: the skin [place] mg/3 mL) 00 weekly. Medical PnIj Branch semaglutide 2021-0 Yes [id number] .25mg inject Univers (OZEMPIC) 8-11 0.25 mg ity of 0.25 mg or 00:00: under the [place] 0.5 mg(2 00 skin Medical mg/1.5 mL) weekly. Branch PnIj Direction: Inject 0.25mg qWeek x 4 Weeks; then Inject 0.5mg qWeek x 4Weeks; then inject 1mg qWeek. semaglutide 2021-0 Yes [id number] 1mg inject 1 Univers (OZEMPIC) 1 8-11 mg under ity of mg/dose (4 00:00: the skin [place] mg/3 mL) 00 weekly. Medical PnIj Branch semaglutide 2021-0 Yes [id number] .25mg inject Univers (OZEMPIC) 8-11 0.25 mg ity of 0.25 mg or 00:00: under the [place] 0.5 mg(2 00 skin Medical mg/1.5 mL) weekly. Branch PnIj Direction: Inject 0.25mg qWeek x 4 Weeks; then Inject 0.5mg qWeek x 4Weeks; then inject 1mg qWeek. semaglutide 2021-0 Yes [id number] 1mg inject 1 Univers (OZEMPIC) 1 8-11 mg under ity of mg/dose (4 00:00: the skin [place] mg/3 mL) 00 weekly. Medical PnIj Branch semaglutide 2021-0 Yes [id number] .25mg inject Univers (OZEMPIC) 8-11 0.25 mg ity of 0.25 mg or 00:00: under the [place] 0.5 mg(2 00 skin Medical mg/1.5 mL) weekly. Branch PnIj Direction: Inject 0.25mg qWeek x 4 Weeks; then Inject 0.5mg qWeek x 4Weeks; then inject 1mg qWeek. semaglutide 2022-0 Yes [id number] 1mg inject 1 Univers (OZEMPIC) 1 8-11 mg under ity of mg/dose (4 00:00: the skin [place] mg/3 mL) 00 weekly. Medical PnIj Branch semaglutide 2-0 Yes [id number] .25mg inject Univers (OZEMPIC) 8-11 0.25 mg ity of 0.25 mg or 00:00: under the [place] 0.5 mg(2 00 skin Medical mg/1.5 mL) weekly. Branch PnIj Direction: Inject 0.25mg qWeek x 4 Weeks; then Inject 0.5mg qWeek x 4Weeks; then inject 1mg qWeek. semaglutide 2-0 Yes [id number] 1mg inject 1 Univers (OZEMPIC) 1 8-11 mg under ity of mg/dose (4 00:00: the skin [place] mg/3 mL) 00 weekly. Medical PnIj Branch semaglutide 2021-0 Yes [id number] .25mg inject Univers (OZEMPIC) 8-11 0.25 mg ity of 0.25 mg or 00:00: under the [place] 0.5 mg(2 00 skin Medical mg/1.5 mL) weekly. Branch PnIj Direction: Inject 0.25mg qWeek x 4 Weeks; then Inject 0.5mg qWeek x 4Weeks; then inject 1mg qWeek. Cholecalcif 2022-0 Yes [id number] 5000U Take 1 Univers janae, 8-03 tablet by ity of Vitamin D3, 00:00: mouth in [place] (VITAMIN 00 the Medical D3) 125 mcg morning. Bran ch (5,000 unit) tablet Cholecalcif 2022-0 Yes [id number] 5000U Take 1 Univers janae, 8-03 tablet by ity of Vitamin D3, 00:00: mouth in [place] (VITAMIN 00 the Medical D3) 125 mcg morning. Bran ch (5,000 unit) tablet Cholecalcif 2022-0 Yes [id number] 5000U Take 1 Univers janae, 8-03 tablet by ity of Vitamin D3, 00:00: mouth in [place] (VITAMIN 00 the Medical D3) 125 mcg morning. Bran ch (5,000 unit) tablet Cholecalcif 2022-0 Yes [id number] 5000U Take 1 Univers janae, 8-03 tablet by ity of Vitamin D3, 00:00: mouth in [place] (VITAMIN 00 the Medical D3) 125 mcg morning. Bran ch (5,000 unit) tablet Cholecalcif 2022-0 Yes [id number] 5000U Take 1 Univers janae, 8-03 tablet by ity of Vitamin D3, 00:00: mouth in [place] (VITAMIN 00 the Medical D3) 125 mcg morning. Bran ch (5,000 unit) tablet Cholecalcif 2022-0 Yes [id number] 5000U Take 1 Univers janae, 8-03 tablet by ity of Vitamin D3, 00:00: mouth in [place] (VITAMIN 00 the Medical D3) 125 mcg morning. Bran ch (5,000 unit) tablet Cholecalcif 2022-0 Yes [id number] 5000U Take 1 Univers janae, 8-03 tablet by ity of Vitamin D3, 00:00: mouth in [place] (VITAMIN 00 the Medical D3) 125 mcg morning. Bran ch (5,000 unit) tablet Cholecalcif 2022-0 Yes [id number] 5000U Take 1 Univers janae, 8-03 tablet by ity of Vitamin D3, 00:00: mouth in [place] (VITAMIN 00 the Medical D3) 125 mcg morning. Bran ch (5,000 unit) tablet Cholecalcif 2022-0 Yes [id number] 5000U Take 1 Univers janae, 8-03 tablet by ity of Vitamin D3, 00:00: mouth in [place] (VITAMIN 00 the Medical D3) 125 mcg morning. Bran ch (5,000 unit) tablet Cholecalcif 2022-0 Yes [id number] 5000U Take 1 Univers janae, 8-03 tablet by ity of Vitamin D3, 00:00: [place] (VITAMIN 00 the Medical D3) 125 mcg morning. Bran ch (5,000 unit) tablet Cholecalcif 2022-0 Yes [id number] 5000U Take 1 Univers janae, 8-03 tablet by ity of Vitamin D3, 00:00: mouth in [place] (VITAMIN 00 the Medical D3) 125 mcg morning. Bran ch (5,000 unit) tablet Cholecalcif 2022-0 Yes [id number] 5000U Take 1 Univers janae, 8-03 tablet by ity of Vitamin D3, 00:00: mouth in [place] (VITAMIN 00 the Medical D3) 125 mcg morning. Bran ch (5,000 unit) tablet Cholecalcif 2022-0 Yes [id number] 5000U Take 1 Univers janae, 8-03 tablet by ity of Vitamin D3, 00:00: mouth in [place] (VITAMIN 00 the Medical D3) 125 mcg morning. Bran ch (5,000 unit) tablet Cholecalcif 2022-0 Yes [id number] 5000U Take 1 Univers janae, 8-03 tablet by ity of Vitamin D3, 00:00: mouth in [place] (VITAMIN 00 the Medical D3) 125 mcg morning. Bran ch (5,000 unit) tablet Cholecalcif 2022-0 Yes [id number] 5000U Take 1 Univers janae, 8-03 tablet by ity of Vitamin D3, 00:00: mouth in [place] (VITAMIN 00 the Medical D3) 125 mcg morning. Bran ch (5,000 unit) tablet Cholecalcif 2022-0 Yes [id number] 5000U Take 1 Univers janae, 8-03 tablet by ity of Vitamin D3, 00:00: mouth in [place] (VITAMIN 00 the Medical D3) 125 mcg morning. Bran ch (5,000 unit) tablet Cholecalcif 2022-0 Yes [id number] 5000U Take 1 Univers janae, 8-03 tablet by ity of Vitamin D3, 00:00: mouth in [place] (VITAMIN 00 the Medical D3) 125 mcg morning. Bran ch (5,000 unit) tablet Cholecalcif 2022-0 Yes [id number] 5000U Take 1 Univers janae, 8-03 tablet by ity of Vitamin D3, 00:00: mouth [place] (VITAMIN 00 the Medical D3) 125 mcg morning. Bran ch (5,000 unit) tablet ROSUVASTATI 2022-0 Yes [id number] 5mg TAKE 1 Univers N 5 mg 7-26 TABLET BY ity of tablet 00:00: MOUTH AT [place] [address] BEDTIME Medical Branch ROSUVASTATI 2022-0 Yes [id number] 5mg TAKE 1 Univers N 5 mg 7-26 TABLET BY ity of tablet 00:00: MOUTH AT [place] [address] BEDTIME Medical Branch ROSUVASTATI 2022-0 Yes [id number] 5mg TAKE 1 Univers N 5 mg 7-26 TABLET BY ity of tablet 00:00: MOUTH AT [place] [facility] [id number] 5mg TAKE 1 Univers N 5 mg 7-26 TABLET BY ity of tablet 00:00: MOUTH AT [place] [facility] Yes [id number] 5mg TAKE 1 Univers N 5 mg 7-26 TABLET BY ity of tablet 00:00: MOUTH AT [place] [facility] Yes [id number] 5mg TAKE 1 Univers N 5 mg 7-26 TABLET BY ity of tablet 00:00: MOUTH AT [place] [facility] Yes [id number] 5mg TAKE 1 Univers N 5 mg 7-26 TABLET BY ity of tablet 00:00: MOUTH AT [place] [facility] Yes [id number] 5mg TAKE 1 Univers N 5 mg 7-26 TABLET BY ity of tablet 00:00: MOUTH AT [place] [facility] Yes [id number] 5mg TAKE 1 [facility] N 5 mg 7-26 TABLET BY ity of tablet 00:00: MOUTH AT [place] [facility] [id number] 5mg TAKE 1 [facility] N 5 mg 7-26 TABLET BY ity of tablet 00:00: MOUTH AT [place] [facility] Yes [id number] 5mg TAKE 1 [facility] N 5 mg 7-26 TABLET BY ity of tablet 00:00: MOUTH AT [facility] [place] [facility] Yes [id number] 5mg TAKE 1 [facility] N 5 mg 7-26 TABLET BY ity of tablet 00:00: MOUTH AT [facility] [place] [facility] Yes [id number] 5mg TAKE 1 [facility] N 5 mg 7-26 TABLET BY ity of tablet 00:00: MOUTH AT [place] [facility] Yes [id number] 5mg TAKE 1 [facility] N 5 mg 7-26 TABLET BY ity of tablet 00:00: MOUTH AT [place] [facility] Yes [id number] 5mg TAKE 1 [facility] N 5 mg 7-26 TABLET BY ity of tablet 00:00: MOUTH AT [place] 00 BEDTIME Medical Branch ROSUVASTATI 2021-0 Yes [id number] 5mg TAKE 1 [facility] N 5 mg 7-26 TABLET BY ity of tablet 00:00: MOUTH AT [place] 00 BEDTIME Medical Branch ROSUVASTATI 2021-0 Yes [id number] 5mg TAKE 1 [facility] N 5 mg 7-26 TABLET BY ity of tablet 00:00: MOUTH AT [place] BEDTIME Medical Branch ROSUVASTATI 2021-0 Yes [id number] 5mg TAKE 1 [facility] N 5 mg 7-26 TABLET BY ity of tablet 00:00: MOUTH AT [place] 00 BEDTIME Medical Branch Trospium 60 2021-0 Yes [id number] 60mg Take 1 [facility] mg capsule 6-13 capsule by ity of 00:00: mouth [place] 00 daily. Medical Branch Trospium 60 2021-0 Yes [id number] 60mg Take 1 [facility] mg capsule 6-13 capsule by ity of 00:00: mouth [place] 00 daily. Medical Branch Trospium 60 2021-0 Yes [id number] 60mg Take 1 [facility] mg capsule 6-13 capsule by ity of 00:00: mouth [place] 00 daily. Medical Branch Trospium 60 2021-0 Yes [id number] 60mg Take 1 [facility] mg capsule 6-13 capsule by ity of 00:00: mouth [place] 00 daily. Medical Branch Trospium 60 2021-0 Yes [id number] 60mg Take 1 [facility] mg capsule 6-13 capsule by ity of 00:00: mouth [place] 00 daily. Medical Branch Trospium 60 2-0 Yes [id number] 60mg Take 1 [facility] mg capsule 6-13 capsule by ity of 00:00: mouth [place] 00 daily. Medical Branch Trospium 60 2-0 Yes [id number] 60mg Take 1 [facility] mg capsule 6-13 capsule by ity of 00:00: mouth [place] 00 daily. Medical Branch Trospium 60 2-0 Yes [id number] 60mg Take 1 [facility] mg capsule 6-13 capsule by ity of 00:00: mouth [place] 00 daily. Medical Branch Trospium 60 2-0 Yes [id number] 60mg Take 1 [facility] mg capsule 6-13 capsule by ity of 00:00: mouth [place] 00 daily. Medical Branch Trospium 60 2-0 Yes [id number] 60mg Take 1 [facility] mg capsule 6-13 capsule by ity of 00:00: mouth [place] 00 daily. Medical Branch Trospium 60 2021-0 Yes [id number] 60mg Take 1 [facility] mg capsule 6-13 capsule by ity of 00:00: mouth [place] 00 daily. Medical Branch Trospium 60 2-0 Yes [id number] 60mg Take 1 [facility] mg capsule 6-13 capsule by ity of 00:00: mouth [place] 00 daily. Medical Branch Trospium 60 2-0 Yes [id number] 60mg Take 1 [facility] mg capsule 6-13 capsule by ity of 00:00: mouth [place] 00 daily. Medical Branch Trospium 60 2021-0 Yes [id number] 60mg Take 1 [facility] mg capsule 6-13 capsule by ity of 00:00: mouth [place] 00 daily. Medical Branch Trospium 60 2021-0 Yes [id number] 60mg Take 1 [facility] mg capsule 6-13 capsule by ity of 00:00: mouth [place] 00 daily. Medical Branch Trospium 60 2021-0 Yes [id number] 60mg Take 1 [facility] mg capsule 6-13 capsule by ity of 00:00: mouth [place] 00 daily. Medical Branch Trospium 60 2021-0 Yes [id number] 60mg Take 1 [facility] mg capsule 6-13 capsule by ity of 00:00: mouth [place] 00 daily. Medical Branch Trospium 60 2-0 Yes [id number] 60mg Take 1 [facility] mg capsule 6-13 capsule by ity of 00:00: mouth [place] 00 daily. Medical Branch Trospium 60 2-0 Yes [id number] 60mg Take 1 [facility] mg capsule 6-13 capsule by ity of 00:00: mouth [place] 00 daily. Medical Branch Trospium 60 2-0 Yes [id number] 60mg Take 1 [facility] mg capsule 6-13 capsule by ity of 00:00: mouth [place] 00 daily. Medical Branch Trospium 60 2-0 Yes [id number] 60mg Take 1 [facility] mg capsule 6-13 capsule by ity of 00:00: mouth [place] 00 daily. Medical Branch AMLODIPINE 2-0 Yes [id number] 2.5mg TAKE 1 [facility] 2.5 mg 6-08 TABLET BY ity of tablet 00:00: MOUTH AT [place] 00 BEDTIME Medical Branch AMLODIPINE 2-0 Yes [id number] 2.5mg TAKE 1 [facility] 2.5 mg 6-08 TABLET BY ity of tablet 00:00: MOUTH AT [place] [facility] Branch AMLODIPINE 2021-0 Yes [id number] 2.5mg TAKE 1 [facility] 2.5 mg 6-08 TABLET BY ity of tablet 00:00: MOUTH AT [place] [facility] AMLODIPINE 2021-0 Yes [id number] 2.5mg TAKE 1 [facility] 2.5 mg 6-08 TABLET BY ity of tablet 00:00: MOUTH AT [place] [facility] Branch AMLODIPINE 2021-0 Yes [id number] 2.5mg TAKE 1 [facility] 2.5 mg 6-08 TABLET BY ity of tablet 00:00: MOUTH AT [place] [facility] AMLODIPINE 2021-0 Yes [id number] 2.5mg TAKE 1 [facility] 2.5 mg 6-08 TABLET BY ity of tablet 00:00: MOUTH AT [place] [facility] AMLODIPINE 2021-0 Yes [id number] 2.5mg TAKE 1 [facility] 2.5 mg 6-08 TABLET BY ity of tablet 00:00: MOUTH AT [place] [facility] AMLODIPINE 2021-0 Yes [id number] 2.5mg TAKE 1 [facility] 2.5 mg 6-08 TABLET BY ity of tablet 00:00: MOUTH AT [place] [facility] AMLODIPINE 2021-0 Yes [id number] 2.5mg TAKE 1 [facility] 2.5 mg 6-08 TABLET BY ity of tablet 00:00: MOUTH AT [place] [facility] AMLODIPINE 2021-0 Yes [id number] 2.5mg TAKE 1 [facility] 2.5 mg 6-08 TABLET BY ity of tablet 00:00: MOUTH AT [place] [facility] AMLODIPINE 2021-0 Yes [id number] 2.5mg TAKE 1 [facility] 2.5 mg 6-08 TABLET BY ity of tablet 00:00: MOUTH AT [place] [facility] AMLODIPINE 2021-0 Yes [id number] 2.5mg TAKE 1 [facility] 2.5 mg 6-08 TABLET BY ity of tablet 00:00: MOUTH AT [address] AMLODIPINE 2021-0 Yes [id number] 2.5mg TAKE 1 [facility] 2.5 mg 6-08 TABLET BY ity of tablet 00:00: MOUTH AT [address] AMLODIPINE 2022-0 Yes [id number] 2.5mg TAKE 1 [facility] 2.5 mg 6-08 TABLET BY ity of tablet 00:00: MOUTH AT [place] [facility] AMLODIPINE 2021-0 Yes [id number] 2.5mg TAKE 1 [facility] 2.5 mg 6-08 TABLET BY ity of tablet 00:00: MOUTH AT [place] [facility] AMLODIPINE 2-0 Yes [id number] 2.5mg TAKE 1 [facility] 2.5 mg 6-08 TABLET BY ity of tablet 00:00: MOUTH AT [place] [facility] AMLODIPINE 2021-0 Yes [id number] 2.5mg TAKE 1 [facility] 2.5 mg 6-08 TABLET BY ity of tablet 00:00: MOUTH AT [place] [facility] AMLODIPINE 2021-0 Yes [id number] 2.5mg TAKE 1 [facility] 2.5 mg 6-08 TABLET BY ity of tablet 00:00: MOUTH AT [place] [facility] AMLODIPINE 2021-0 Yes [id number] 2.5mg TAKE 1 [facility] 2.5 mg 6-08 TABLET BY ity of tablet 00:00: MOUTH AT [place] [facility] AMLODIPINE 2021-0 Yes [id number] 2.5mg TAKE 1 [facility] 2.5 mg 6-08 TABLET BY ity of tablet 00:00: MOUTH AT [place] [facility] AMLODIPINE 2021-0 Yes [id number] 2.5mg TAKE 1 [facility] 2.5 mg 6-08 TABLET BY ity of tablet 00:00: MOUTH AT [place] [facility] clobetasoL 2-0 Yes [id number] Apply to [facility] 0.05 % 6-01 area(s) 2 ity of ointment 00:00: (two) [place] times Medical daily. Branch clobetasoL 2-0 Yes [id number] Apply to [facility] 0.05 % 6-01 area(s) 2 ity of ointment 00:00: (two) [place] times Medical daily. Branch clobetasoL 2-0 Yes [id number] Apply to [facility] 0.05 % 6-01 area(s) 2 ity of ointment 00:00: (two) [place] times Medical daily. Branch clobetasoL 2-0 Yes [id number] Apply to [facility] 0.05 % 6-01 area(s) 2 ity of ointment 00:00: (two) [place] 00 times Medical daily. Branch clobetasoL 2022-0 Yes [id number] Apply to [facility] 0.05 % 6-01 area(s) 2 ity of ointment 00:00: (two) [place] 00 times Medical daily. Branch clobetasoL 2022-0 Yes [id number] Apply to [facility] 0.05 % 6-01 area(s) 2 ity of ointment 00:00: (two) [place] 00 times Medical daily. Branch clobetasoL 2022-0 Yes [id number] Apply to [facility] 0.05 % 6-01 area(s) 2 ity of ointment 00:00: (two) [place] 00 times Medical daily. Branch clobetasoL 2022-0 Yes [id number] Apply to Univers 0.05 % 6-01 area(s) 2 ity of ointment 00:00: (two) [place] 00 times Medical daily. Branch clobetasoL 2022-0 Yes [id number] Apply to [facility] 0.05 % 6-01 area(s) 2 ity of ointment 00:00: (two) [place] 00 times Medical daily. Branch clobetasoL 2022-0 Yes [id number] Apply to Univers 0.05 % 6-01 area(s) 2 ity of ointment 00:00: (two) [place] 00 times Medical daily. Branch clobetasoL 2022-0 Yes [id number] Apply to Univers 0.05 % 6-01 area(s) 2 ity of ointment 00:00: (two) [place] 00 times Medical daily. Branch clobetasoL 2022-0 Yes [id number] Apply to Univers 0.05 % 6-01 area(s) 2 ity of ointment 00:00: (two) [place] 00 times Medical daily. Branch clobetasoL 2022-0 Yes [id number] Apply to Univers 0.05 % 6-01 area(s) 2 ity of ointment 00:00: (two) [place] 00 times Medical daily. Branch clobetasoL 2022-0 Yes [id number] Apply to Univers 0.05 % 6-01 area(s) 2 ity of ointment 00:00: (two) [place] 00 times Medical daily. Branch clobetasoL 2021-0 Yes [id number] Apply to Univers 0.05 % 6-01 area(s) 2 ity of ointment 00:00: (two) [place] 00 times Medical daily. Branch clobetasoL 2021-0 Yes [id number] Apply to Univers 0.05 % 6-01 area(s) 2 ity of ointment 00:00: (two) [place] 00 times Medical daily. Branch clobetasoL 2021-0 Yes [id number] Apply to Univers 0.05 % 6-01 area(s) 2 ity of ointment 00:00: (two) [place] 00 times Medical daily. Branch clobetasoL 2021-0 Yes [id number] Apply to Univers 0.05 % 6-01 area(s) 2 ity of ointment 00:00: (two) [place] 00 times Medical daily. Branch clobetasoL 2-0 Yes [id number] Apply to Univers 0.05 % 6-01 area(s) 2 ity of ointment 00:00: (two) [place] 00 times Medical daily. Branch clobetasoL 2021-0 Yes [id number] Apply to Univers 0.05 % 6-01 area(s) 2 ity of ointment 00:00: (two) [place] 00 times Medical daily. Branch clobetasoL 2021-0 Yes [id number] Apply to Univers 0.05 % 6-01 area(s) 2 ity of ointment 00:00: (two) [place] 00 times Medical daily. Branch telmisartan Yes [id number] 0.5 tablet Univers -hydrochlor 4-28 po once ity o f othiazide 00:00: daily [place] 40-12.5 mg 00 Medical per tablet Branch metformin Yes [id number] 500mg Take 1 [facility] ER 500 mg 4-28 tablet by ity o f 24 hr 00:00: mouth [place] tablet 00 daily with Medical breakfast. Branch lancets Yes [id number] Check Univ ers (ONE TOUCH 4-28 glucose ity of DELICA) 33 00:00: once daily [place] gauge Misc 00 before Medical breakfast; Branch ICD-10 code E11.9 blood sugar Yes [id number] Check Univers diagnostic 4-28 glucose ity of (ONETOUCH 00:00: once daily [place] ULTRA BLUE 00 before Medical TEST STRIP) breakfast; Br anch strip ICD-10 code E11.9 Blood-Gluco Yes [id number] Check Univers se Meter 4-28 glucose ity of (ONETOUCH 00:00: once daily [place] ULTRA2 00 before Medical METER) Kit breakfast; [facility] Diagnosis code E11.9 telmisartan Yes [id number] 0.5 tablet Univers -hydrochlor 4-28 po once ity o f othiazide 00:00: daily [place] 40-12.5 mg 00 Medical per tablet Branch metformin Yes [id number] 500mg Take 1 [facility] ER 500 mg 4-28 tablet by ity o f 24 hr 00:00: mouth [place] tablet 00 daily with Medical breakfast. Branch lancets Yes [id number] Check Univ ers (ONE TOUCH 4-28 glucose ity of DELICA) 33 00:00: once daily [place] gauge Misc 00 before Medical breakfast; Branch ICD-10 code E11.9 blood sugar Yes [id number] Check [facility] diagnostic 4-28 glucose ity of (ONETOUCH 00:00: once daily [place] ULTRA BLUE 00 before Medical TEST STRIP) breakfast; Br anch strip ICD-10 code E11.9 Blood-Gluco Yes [id number] Check Univers se Meter 4-28 glucose ity of (ONETOUCH 00:00: once daily [place] ULTRA2 00 before Medical METER) Kit breakfast; [facility] Diagnosis code E11.9 telmisartan Yes [id number] 0.5 tablet Univers -hydrochlor 4-28 po once ity o f othiazide 00:00: daily [place] 40-12.5 mg 00 Medical per tablet Branch metformin Yes [id number] 500mg Take 1 [facility] ER 500 mg 4-28 tablet by ity o f 24 hr 00:00: mouth [place] tablet 00 daily with Medical breakfast. Branch lancets Yes [id number] Check Univ ers (ONE TOUCH 4-28 glucose ity of [place]) 33 00:00: once daily [place] gauge Misc 00 before Medical breakfast; Branch ICD-10 code E11.9 blood sugar Yes [id number] Check [facility] diagnostic 4-28 glucose ity of (ONETOUCH 00:00: once daily [place] ULTRA BLUE 00 before Medical TEST STRIP) breakfast; Br anch strip ICD-10 code E11.9 Blood-Gluco Yes [id number] Check Univers se Meter 4-28 glucose ity of (ONETOUCH 00:00: once daily [place] ULTRA2 00 before Medical METER) Kit breakfast; [facility] Diagnosis code E11.9 telmisartan Yes [id number] 0.5 tablet [facility] -hydrochlor 4-28 po once ity o f othiazide 00:00: daily [place] 40-12.5 mg 00 Medical per tablet Branch metformin Yes [id number] 500mg Take 1 [facility] ER 500 mg 4-28 tablet by ity o f 24 hr 00:00: mouth [place] tablet 00 daily with Medical breakfast. Branch lancets Yes [id number] Check Univ ers (ONE TOUCH 4-28 glucose ity of [place]) 33 00:00: once daily [place] gauge Misc 00 before Medical breakfast; Branch ICD-10 code E11.9 blood sugar Yes [id number] Check [facility] diagnostic 4-28 glucose ity of (ONETOUCH 00:00: once daily [place] ULTRA BLUE 00 before Medical TEST STRIP) breakfast; Br anch strip ICD-10 code E11.9 Blood-Gluco Yes [id number] Check Univers se Meter 4-28 glucose ity of (ONETOUCH 00:00: once daily [place] ULTRA2 00 before Medical METER) Kit breakfast; [facility] Diagnosis code E11.9 telmisartan Yes [id number] 0.5 tablet Univers -hydrochlor 4-28 po once ity o f othiazide 00:00: daily [place] 40-12.5 mg 00 Medical per tablet Branch metformin Yes [id number] 500mg Take 1 [facility] ER 500 mg 4-28 tablet by ity o f 24 hr 00:00: mouth [place] tablet 00 daily with Medical breakfast. Branch lancets Yes [id number] Check Univ ers (ONE TOUCH 4-28 glucose ity of [place]) 33 00:00: once daily [place] gauge Misc 00 before Medical breakfast; Branch ICD-10 code E11.9 blood sugar Yes [id number] Check [facility] diagnostic 4-28 glucose ity of (ONETOUCH 00:00: once daily [place] ULTRA BLUE 00 before Medical TEST STRIP) breakfast; Br anch strip ICD-10 code E11.9 Blood-Gluco Yes [id number] Check [facility] se Meter 4-28 glucose ity of (ONETOUCH 00:00: once daily [place] ULTRA2 00 before Medical METER) Kit breakfast; [facility] Diagnosis code E11.9 telmisartan Yes [id number] 0.5 tablet [facility] -hydrochlor 4-28 po once ity o f othiazide 00:00: daily [place] 40-12.5 mg 00 Medical per tablet Branch metformin Yes [id number] 500mg Take 1 [facility] ER 500 mg 4-28 tablet by ity o f 24 hr 00:00: mouth [place] tablet 00 daily with Medical breakfast. Branch lancets Yes [id number] Check Univ ers (ONE TOUCH 4-28 glucose ity of [place]) 33 00:00: once daily [place] gauge Misc 00 before Medical breakfast; Branch ICD-10 code E11.9 blood sugar Yes [id number] Check [facility] diagnostic 4-28 glucose ity of (ONETOUCH 00:00: once daily [place] ULTRA BLUE 00 before Medical TEST STRIP) breakfast; Br anch strip ICD-10 code E11.9 Blood-Gluco Yes [id number] Check [facility] se Meter 4-28 glucose ity of (ONETOUCH 00:00: once daily [place] ULTRA2 00 before Medical METER) Kit breakfast; [facility] Diagnosis code E11.9 telmisartan Yes [id number] 0.5 tablet [facility] -hydrochlor 4-28 po once ity o f othiazide 00:00: daily [place] 40-12.5 mg 00 Medical per tablet Branch metformin Yes [id number] 500mg Take 1 [facility] ER 500 mg 4-28 tablet by ity o f 24 hr 00:00: mouth [place] tablet 00 daily with Medical breakfast. Branch lancets Yes [id number] Check Univ ers (ONE TOUCH 4-28 glucose ity of [place]) 33 00:00: once daily [place] gauge Misc 00 before Medical breakfast; Branch ICD-10 code E11.9 blood sugar 0 Yes [id number] Check [facility] diagnostic 4-28 glucose ity of (ONETOUCH 00:00: once daily [place] ULTRA BLUE 00 before Medical TEST STRIP) breakfast; Br anch strip ICD-10 code E11.9 Blood-Gluco 0 Yes [id number] Check [facility] se Meter 4-28 glucose ity of (ONETOUCH 00:00: once daily [place] ULTRA2 00 before Medical METER) Kit breakfast; [facility] Diagnosis code E11.9 telmisartan Yes [id number] 0.5 tablet [facility] -hydrochlor 4-28 po once ity o f othiazide 00:00: daily [place] 40-12.5 mg 00 Medical per tablet Branch metformin Yes [id number] 500mg Take 1 [facility] ER 500 mg 4-28 tablet by ity o f 24 hr 00:00: mouth [place] tablet 00 daily with Medical breakfast. Branch lancets Yes [id number] Check [facility] ers (ONE TOUCH 4-28 glucose ity of [place]) 33 00:00: once daily [place] gauge Misc 00 before Medical breakfast; Branch ICD-10 code E11.9 blood sugar Yes [id number] Check [facility] diagnostic 4-28 glucose ity of (ONETOUCH 00:00: once daily [place] ULTRA BLUE 00 before Medical TEST STRIP) breakfast; Br anch strip ICD-10 code E11.9 Blood-Gluco Yes [id number] Check [facility] se Meter 4-28 glucose ity of (ONETOUCH 00:00: once daily [place] ULTRA2 00 before Medical METER) Kit breakfast; [facility] Diagnosis code E11.9 telmisartan Yes [id number] 0.5 tablet [facility] -hydrochlor 4-28 po once ity o f othiazide 00:00: daily [place] 40-12.5 mg 00 Medical per tablet Branch metformin Yes [id number] 500mg Take 1 [facility] ER 500 mg 4-28 tablet by ity o f 24 hr 00:00: mouth [place] tablet 00 daily with Medical breakfast. Branch lancets Yes [id number] Check Univ ers (ONE TOUCH 4-28 glucose ity of [place]) 33 00:00: once daily [place] gauge Misc 00 before Medical breakfast; Branch ICD-10 code E11.9 blood sugar 2021-0 Yes [id number] Check [facility] diagnostic 4-28 glucose ity of (ONETOUCH 00:00: once daily [place] ULTRA BLUE 00 before Medical TEST STRIP) breakfast; Br anch strip ICD-10 code E11.9 Blood-Gluco 2021-0 Yes [id number] Check [facility] se Meter 4-28 glucose ity of (ONETOUCH 00:00: once daily [place] ULTRA2 00 before Medical METER) Kit breakfast; [facility] Diagnosis code E11.9 telmisartan Yes [id number] 0.5 tablet [facility] -hydrochlor 4-28 po once ity o f othiazide 00:00: daily [place] 40-12.5 mg 00 Medical per tablet Branch metformin Yes [id number] 500mg Take 1 [facility] ER 500 mg 4-28 tablet by ity o f 24 hr 00:00: mouth [place] tablet 00 daily with Medical breakfast. Branch lancets Yes [id number] Check Univ ers (ONE TOUCH 4-28 glucose ity of [place]) 33 00:00: once daily [place] gauge Misc 00 before Medical breakfast; Branch ICD-10 code E11.9 blood sugar Yes [id number] Check [facility] diagnostic 4-28 glucose ity of (ONETOUCH 00:00: once daily [place] ULTRA BLUE 00 before Medical TEST STRIP) breakfast; Br anch strip ICD-10 code E11.9 Blood-Gluco 2021-0 Yes [id number] Check [facility] se Meter 4-28 glucose ity of (ONETOUCH 00:00: once daily [place] ULTRA2 00 before Medical METER) Kit breakfast; [facility] Diagnosis code E11.9 telmisartan 2021- Yes [id number] 0.5 tablet [facility] -hydrochlor 4-28 po once ity o f othiazide 00:00: daily [place] 40-12.5 mg 00 Medical per tablet Branch metformin Yes [id number] 500mg Take 1 [facility] ER 500 mg 4-28 tablet by ity o f 24 hr 00:00: mouth [place] tablet 00 daily with Medical breakfast. Branch lancets Yes [id number] Check [facility] ers (ONE TOUCH 4-28 glucose ity of [place]) 33 00:00: once daily [place] gauge Misc 00 before Medical breakfast; Branch ICD-10 code E11.9 blood sugar 0 Yes [id number] Check [facility] diagnostic 4-28 glucose ity of (ONETOUCH 00:00: once daily [place] ULTRA BLUE 00 before Medical TEST STRIP) breakfast; Br anch strip ICD-10 code E11.9 Blood-Gluco 0 Yes [id number] Check [facility] se Meter 4-28 glucose ity of (ONETOUCH 00:00: once daily [place] ULTRA2 00 before Medical METER) Kit breakfast; [facility] Diagnosis code E11.9 telmisartan Yes [id number] 0.5 tablet [facility] -hydrochlor 4-28 po once ity o f othiazide 00:00: daily [place] 40-12.5 mg 00 Medical per tablet Branch metformin Yes [id number] 500mg Take 1 [facility] ER 500 mg 4-28 tablet by ity o f 24 hr 00:00: mouth [place] tablet 00 daily with Medical breakfast. Branch lancets Yes [id number] Check Univ ers (ONE TOUCH 4-28 glucose ity of [place]) 33 00:00: once daily [place] gauge Misc 00 before Medical breakfast; Branch ICD-10 code E11.9 blood sugar Yes [id number] Check [facility] diagnostic 4-28 glucose ity of (ONETOUCH 00:00: once daily [place] ULTRA BLUE 00 before Medical TEST STRIP) breakfast; Br anch strip ICD-10 code E11.9 Blood-Gluco Yes [id number] Check [facility] se Meter 4-28 glucose ity of (ONETOUCH 00:00: once daily [place] ULTRA2 00 before Medical METER) Kit breakfast; [facility] Diagnosis code E11.9 telmisartan Yes [id number] 0.5 tablet [facility] -hydrochlor 4-28 po once ity o f othiazide 00:00: daily [place] 40-12.5 mg 00 Medical per tablet Branch metformin Yes [id number] 500mg Take 1 [facility] ER 500 mg 4-28 tablet by ity o f 24 hr 00:00: mouth [place] tablet 00 daily with Medical breakfast. Branch lancets Yes [id number] Check Univ ers (ONE TOUCH 4-28 glucose ity of [place]) 33 00:00: once daily [place] gauge Misc 00 before Medical breakfast; Branch ICD-10 code E11.9 blood sugar 0 Yes [id number] Check [facility] diagnostic 4-28 glucose ity of (ONETOUCH 00:00: once daily [place] ULTRA BLUE 00 before Medical TEST STRIP) breakfast; Br anch strip ICD-10 code E11.9 Blood-Gluco Yes [id number] Check [facility] se Meter 4-28 glucose ity of (ONETOUCH 00:00: once daily [place] ULTRA2 00 before Medical METER) Kit breakfast; [facility] Diagnosis code E11.9 telmisartan Yes [id number] 0.5 tablet [facility] -hydrochlor 4-28 po once ity o f othiazide 00:00: daily [place] 40-12.5 mg 00 Medical per tablet Branch metformin Yes [id number] 500mg Take 1 [facility] ER 500 mg 4-28 tablet by ity o f 24 hr 00:00: mouth [place] tablet 00 daily with Medical breakfast. Branch lancets Yes [id number] Check Univ ers (ONE TOUCH 4-28 glucose ity of [place]) 33 00:00: once daily [place] gauge Misc 00 before Medical breakfast; Branch ICD-10 code E11.9 blood sugar Yes [id number] Check [facility] diagnostic 4-28 glucose ity of (ONETOUCH 00:00: once daily [place] ULTRA BLUE 00 before Medical TEST STRIP) breakfast; Br anch strip ICD-10 code E11.9 Blood-Gluco Yes [id number] Check [facility] se Meter 4-28 glucose ity of (ONETOUCH 00:00: once daily [place] ULTRA2 00 before Medical METER) Kit breakfast; [facility] Diagnosis code E11.9 telmisartan 2021-0 Yes [id number] 0.5 tablet [facility] -hydrochlor 4-28 po once ity o f othiazide 00:00: daily [place] 40-12.5 mg 00 Medical per tablet Branch metformin Yes [id number] 500mg Take 1 [facility] ER 500 mg 4-28 tablet by ity o f 24 hr 00:00: mouth [place] tablet 00 daily with Medical breakfast. Branch lancets Yes [id number] Check Univ ers (ONE TOUCH 4-28 glucose ity of [place]) 33 00:00: once daily [place] gauge Misc 00 before Medical breakfast; Branch ICD-10 code E11.9 blood sugar Yes [id number] Check [facility] diagnostic 4-28 glucose ity of (ONETOUCH 00:00: once daily [place] ULTRA BLUE 00 before Medical TEST STRIP) breakfast; Br anch strip ICD-10 code E11.9 Blood-Gluco Yes [id number] Check [facility] se Meter 4-28 glucose ity of (ONETOUCH 00:00: once daily [place] ULTRA2 00 before Medical METER) Kit breakfast; [facility] Diagnosis code E11.9 telmisartan Yes [id number] 0.5 tablet [facility] -hydrochlor 4-28 po once ity o f othiazide 00:00: daily [place] 40-12.5 mg 00 Medical per tablet Branch metformin Yes [id number] 500mg Take 1 [facility] ER 500 mg 4-28 tablet by ity o f 24 hr 00:00: mouth [place] tablet 00 daily with Medical breakfast. Branch lancets Yes [id number] Check Univ ers (ONE TOUCH 4-28 glucose ity of [place]) 33 00:00: once daily [place] gauge Misc 00 before Medical breakfast; Branch ICD-10 code E11.9 blood sugar Yes [id number] Check [facility] diagnostic 4-28 glucose ity of (ONETOUCH 00:00: once daily [place] ULTRA BLUE 00 before Medical TEST STRIP) breakfast; Br anch strip ICD-10 code E11.9 Blood-Gluco Yes [id number] Check [facility] se Meter 4-28 glucose ity of (ONETOUCH 00:00: once daily [place] ULTRA2 00 before Medical METER) Kit breakfast; [facility] Diagnosis code E11.9 telmisartan Yes [id number] 0.5 tablet [facility] -hydrochlor 4-28 po once ity o f othiazide 00:00: daily [place] 40-12.5 mg 00 Medical per tablet Branch metformin Yes [id number] 500mg Take 1 [facility] ER 500 mg 4-28 tablet by ity o f 24 hr 00:00: mouth [place] tablet 00 daily with Medical breakfast. Branch lancets Yes [id number] Check Univ ers (ONE TOUCH 4-28 glucose ity of DELICA) 33 00:00: once daily [place] gauge Misc 00 before Medical breakfast; Branch ICD-10 code E11.9 blood sugar Yes [id number] Check [facility] diagnostic 4-28 glucose ity of (ONETOUCH 00:00: once daily [place] ULTRA BLUE 00 before Medical TEST STRIP) breakfast; Br anch strip ICD-10 code E11.9 Blood-Gluco Yes [id number] Check [facility] se Meter 4-28 glucose ity of (ONETOUCH 00:00: once daily [place] ULTRA2 00 before Medical METER) Kit breakfast; [facility] Diagnosis code E11.9 telmisartan Yes [id number] 0.5 tablet [facility] -hydrochlor 4-28 po once ity o f othiazide 00:00: daily [place] 40-12.5 mg 00 Medical per tablet Branch metformin Yes [id number] 500mg Take 1 [facility] ER 500 mg 4-28 tablet by ity o f 24 hr 00:00: mouth [place] tablet 00 daily with Medical breakfast. Branch lancets Yes [id number] Check Univ ers (ONE TOUCH 4-28 glucose ity of DELICA) 33 00:00: once daily [place] gauge Misc 00 before Medical breakfast; Branch ICD-10 code E11.9 blood sugar Yes [id number] Check [facility] diagnostic 4-28 glucose ity of (ONETOUCH 00:00: once daily [place] ULTRA BLUE 00 before Medical TEST STRIP) breakfast; Br anch strip ICD-10 code E11.9 Blood-Gluco Yes [id number] Check [facility] se Meter 4-28 glucose ity of (ONETOUCH 00:00: once daily [place] ULTRA2 00 before Medical METER) Kit breakfast; [facility] Diagnosis code E11.9 telmisartan Yes [id number] 0.5 tablet [facility] -hydrochlor 4-28 po once ity o f othiazide 00:00: daily [place] 40-12.5 mg 00 Medical per tablet Branch metformin Yes [id number] 500mg Take 1 [facility] ER 500 mg 4-28 tablet by ity o f 24 hr 00:00: mouth [place] tablet 00 daily with Medical breakfast. Branch lancets Yes [id number] Check [facility] ers (ONE TOUCH 4-28 glucose ity of [place]) 33 00:00: once daily [place] gauge Misc 00 before Medical breakfast; Branch ICD-10 code E11.9 blood sugar Yes [id number] Check [facility] diagnostic 4-28 glucose ity of (ONETOUCH 00:00: once daily [place] ULTRA BLUE 00 before Medical TEST STRIP) breakfast; Br anch strip ICD-10 code E11.9 Blood-Gluco Yes [id number] Check [facility] se Meter 4-28 glucose ity of (ONETOUCH 00:00: once daily [place] ULTRA2 00 before Medical METER) Kit breakfast; [facility] Diagnosis code E11.9 telmisartan Yes [id number] 0.5 tablet [facility] -hydrochlor 4-28 po once ity o f othiazide 00:00: daily [place] 40-12.5 mg 00 Medical per tablet Branch metformin Yes [id number] 500mg Take 1 [facility] ER 500 mg 4-28 tablet by ity o f 24 hr 00:00: mouth [place] tablet 00 daily with Medical breakfast. Branch lancets Yes [id number] Check [facility] ers (ONE TOUCH 4-28 glucose ity of [place]) 33 00:00: once daily [place] gauge Misc 00 before Medical breakfast; Branch ICD-10 code E11.9 blood sugar Yes [id number] Check [facility] diagnostic 4-28 glucose ity of (ONETOUCH 00:00: once daily [place] ULTRA BLUE 00 before Medical TEST STRIP) breakfast; Br anch strip ICD-10 code E11.9 Blood-Gluco Yes [id number] Check [facility] se Meter 4-28 glucose ity of (ONETOUCH 00:00: once daily [place] ULTRA2 00 before Medical METER) Kit breakfast; [facility] Diagnosis code E11.9 telmisartan Yes [id number] 0.5 tablet [facility] -hydrochlor 4-28 po once ity o f othiazide 00:00: daily [place] 40-12.5 mg 00 Medical per tablet Branch metformin Yes [id number] 500mg Take 1 [facility] ER 500 mg 4-28 tablet by ity o f 24 hr 00:00: mouth [place] tablet 00 daily with Medical breakfast. Branch lancets 2021-0 Yes [id number] Check Univ ers (ONE TOUCH 4-28 glucose ity of [place]) 33 00:00: once daily [place] gauge Misc 00 before Medical breakfast; Branch ICD-10 code E11.9 blood sugar 2021-0 Yes [id number] Check [facility] diagnostic 4-28 glucose ity of (ONETOUCH 00:00: once daily [place] ULTRA BLUE 00 before Medical TEST STRIP) breakfast; Br anch strip ICD-10 code E11.9 Blood-Gluco 2021-0 Yes [id number] Check [facility] se Meter 4-28 glucose ity of (ONETOUCH 00:00: once daily [place] ULTRA2 00 before Medical METER) Kit breakfast; [facility] Diagnosis code E11.9 colchicine 2021-0 Yes [id number] Take 2 [facility] 0.6 mg 3-14 tabs po x ity of tablet 00:00: 1 dose PRN gout Medical attack, Branch may take 1 tab 1 hour later if still in pain; Max 3 tabs per 24 hours. naproxen 2021-0 Yes [id number] 500mg Take 1 U nivers 500 mg 3-14 tablet by ity of tablet 00:00: mouth 2 [place] (two) Medical times Branch daily with meals. colchicine 2021-0 Yes [id number] Take 2 [facility] 0.6 mg 3-14 tabs po x ity of tablet 00:00: 1 dose PRN gout Medical attack, Branch may take 1 tab 1 hour later if still in pain; Max 3 tabs per 24 hours. naproxen 2021-0 Yes [id number] 500mg Take 1 U nivers 500 mg 3-14 tablet by ity of tablet 00:00: mouth 2 (two) Medical times Branch daily with meals. colchicine 2021-0 Yes [id number] Take 2 [facility] 0.6 mg 3-14 tabs po x ity of tablet 00:00: 1 dose PRN gout Medical attack, Branch may take 1 tab 1 hour later if still in pain; Max 3 tabs per 24 hours. naproxen 2021-0 Yes [id number] 500mg Take 1 U nivers 500 mg 3-14 tablet by ity of tablet 00:00: mouth 2 [place] 00 (two) Medical times Branch daily with meals. colchicine 2022-0 Yes [id number] Take 2 [facility] 0.6 mg 3-14 tabs po x ity of tablet 00:00: 1 dose PRN gout Medical attack, Branch may take 1 tab 1 hour later if still in pain; Max 3 tabs per 24 hours. naproxen 2022-0 Yes [id number] 500mg Take 1 U nivers 500 mg 3-14 tablet by ity of tablet 00:00: mouth () Medical times Branch daily with meals. colchicine 2022-0 Yes [id number] Take 2 [facility] 0.6 mg 3-14 tabs po x ity of tablet 00:00: 1 dose PRN gout Medical attack, Branch may take 1 tab 1 hour later if still in pain; Max 3 tabs per 24 hours. naproxen 2-0 Yes [id number] 500mg Take 1 U nivers 500 mg 3-14 tablet by ity of tablet 00:00: mouth ([facility]) Medical times Branch daily with meals. colchicine 2-0 Yes [id number] Take 2 [facility] 0.6 mg 3-14 tabs po x ity of tablet 00:00: 1 dose PRN gout Medical attack, Branch may take 1 tab 1 hour later if still in pain; Max 3 tabs per 24 hours. naproxen 2022-0 Yes [id number] 500mg Take 1 U nivers 500 mg 3-14 tablet by ity of tablet 00:00: mouth () Medical times Branch daily with meals. colchicine 2-0 Yes [id number] Take 2 [facility] 0.6 mg 3-14 tabs po x ity of tablet 00:00: 1 dose PRN gout Medical attack, Branch may take 1 tab 1 hour later if still in pain; Max 3 tabs per 24 hours. naproxen 2022-0 Yes [id number] 500mg Take 1 U nivers 500 mg 3-14 tablet by ity of tablet 00:00: mouth () Medical times Branch daily with meals. colchicine 2022-0 Yes [id number] Take 2 [facility] 0.6 mg 3-14 tabs po x ity of tablet 00:00: 1 dose PRN gout Medical attack, Branch may take 1 tab 1 hour later if still in pain; Max 3 tabs per 24 hours. naproxen 2022-0 Yes [id number] 500mg Take 1 U nivers 500 mg 3-14 tablet by ity of tablet 00:00: mouth (two) Medical times Branch daily with meals. colchicine 2-0 Yes [id number] Take 2 [facility] 0.6 mg 3-14 tabs po x ity of tablet 00:00: 1 dose PRN gout Medical attack, Branch may take 1 tab 1 hour later if still in pain; Max 3 tabs per 24 hours. naproxen 2022-0 Yes [id number] 500mg Take 1 U nivers 500 mg 3-14 tablet by ity of tablet 00:00: mouth (two) Medical times Branch daily with meals. colchicine 2-0 Yes [id number] Take 2 [facility] 0.6 mg 3-14 tabs po x ity of tablet 00:00: 1 dose PRN gout Medical attack, Branch may take 1 tab 1 hour later if still in pain; Max 3 tabs per 24 hours. naproxen 2-0 Yes [id number] 500mg Take 1 U nivers 500 mg 3-14 tablet by ity of tablet 00:00: mouth () Medical times Branch daily with meals. colchicine 2021-0 Yes [id number] Take 2 [facility] 0.6 mg 3-14 tabs po x ity of tablet 00:00: 1 dose PRN gout Medical attack, Branch may take 1 tab 1 hour later if still in pain; Max 3 tabs per 24 hours. naproxen 2-0 Yes [id number] 500mg Take 1 U nivers 500 mg 3-14 tablet by ity of tablet 00:00: mouth (two) Medical times Branch daily with meals. colchicine 2022-0 Yes [id number] Take 2 [facility] 0.6 mg 3-14 tabs po x ity of tablet 00:00: 1 dose PRN gout Medical attack, Branch may take 1 tab 1 hour later if still in pain; Max 3 tabs per 24 hours. naproxen 2022-0 Yes [id number] 500mg Take 1 U nivers 500 mg 3-14 tablet by ity of tablet 00:00: mouth (two) Medical times Branch daily with meals. colchicine 2-0 Yes [id number] Take 2 [facility] 0.6 mg 3-14 tabs po x ity of tablet 00:00: 1 dose PRN gout Medical attack, Branch may take 1 tab 1 hour later if still in pain; Max 3 tabs per 24 hours. naproxen 2022-0 Yes [id number] 500mg Take 1 U nivers 500 mg 3-14 tablet by ity of tablet 00:00: mouth () Medical times Branch daily with meals. colchicine 2-0 Yes [id number] Take 2 [facility] 0.6 mg 3-14 tabs po x ity of tablet 00:00: 1 dose PRN gout Medical attack, Branch may take 1 tab 1 hour later if still in pain; Max 3 tabs per 24 hours. naproxen 2-0 Yes [id number] 500mg Take 1 U nivers 500 mg 3-14 tablet by ity of tablet 00:00: mouth () Medical times Branch daily with meals. colchicine 2021-0 Yes [id number] Take 2 [facility] 0.6 mg 3-14 tabs po x ity of tablet 00:00: 1 dose PRN gout Medical attack, Branch may take 1 tab 1 hour later if still in pain; Max 3 tabs per 24 hours. naproxen 2-0 Yes [id number] 500mg Take 1 U nivers 500 mg 3-14 tablet by ity of tablet 00:00: mouth () Medical times Branch daily with meals. colchicine 2-0 Yes [id number] Take 2 [facility] 0.6 mg 3-14 tabs po x ity of tablet 00:00: 1 dose PRN gout Medical attack, Branch may take 1 tab 1 hour later if still in pain; Max 3 tabs per 24 hours. naproxen 2022-0 Yes [id number] 500mg Take 1 U nivers 500 mg 3-14 tablet by ity of tablet 00:00: mouth () Medical times Branch daily with meals. colchicine 2022-0 Yes [id number] Take 2 [facility] 0.6 mg 3-14 tabs po x ity of tablet 00:00: 1 dose PRN gout Medical attack, Branch may take 1 tab 1 hour later if still in pain; Max 3 tabs per 24 hours. naproxen 2022-0 Yes [id number] 500mg Take 1 U nivers 500 mg 3-14 tablet by ity of tablet 00:00: mouth (two) Medical times Branch daily with meals. colchicine 2-0 Yes [id number] Take 2 [facility] 0.6 mg 3-14 tabs po x ity of tablet 00:00: 1 dose PRN gout Medical attack, Branch may take 1 tab 1 hour later if still in pain; Max 3 tabs per 24 hours. naproxen 2022-0 Yes [id number] 500mg Take 1 U nivers 500 mg 3-14 tablet by ity of tablet 00:00: mouth () Medical times Branch daily with meals. colchicine 2021-0 Yes [id number] Take 2 [facility] 0.6 mg 3-14 tabs po x ity of tablet 00:00: 1 dose PRN gout Medical attack, Branch may take 1 tab 1 hour later if still in pain; Max 3 tabs per 24 hours. naproxen 2-0 Yes [id number] 500mg Take 1 U nivers 500 mg 3-14 tablet by ity of tablet 00:00: mouth () Medical times Branch daily with meals. colchicine 2021-0 Yes [id number] Take 2 [facility] 0.6 mg 3-14 tabs po x ity of tablet 00:00: 1 dose PRN gout Medical attack, Branch may take 1 tab 1 hour later if still in pain; Max 3 tabs per 24 hours. naproxen 2-0 Yes [id number] 500mg Take 1 U nivers 500 mg 3-14 tablet by ity of tablet 00:00: mouth (two) Medical times Branch daily with meals. colchicine 2022-0 Yes [id number] Take 2 [facility] 0.6 mg 3-14 tabs po x ity of tablet 00:00: 1 dose PRN gout Medical attack, Branch may take 1 tab 1 hour later if still in pain; Max 3 tabs per 24 hours. naproxen 2022-0 Yes [id number] 500mg Take 1 U nivers 500 mg 3-14 tablet by ity of tablet 00:00: mouth (two) Medical times Branch daily with meals. allopurinoL 2020-05 Yes [id number] 100mg Take 1 [facility] 100 mg 2-09 tablet by ity of tablet 00:00: mouth [place] 00 daily. Medical Branch allopurinoL 2020-05 Yes [id number] 100mg Take 1 [facility] 100 mg 2-09 tablet by ity of tablet 00:00: mouth [place] 00 daily. Medical Branch allopurinoL 2020-05 Yes [id number] 100mg Take 1 [facility] 100 mg 2-09 tablet by ity of tablet 00:00: mouth [place] 00 daily. Medical Branch allopurinoL 2020-05 Yes [id number] 100mg Take 1 [facility] 100 mg 2-09 tablet by ity of tablet 00:00: mouth [place] 00 daily. Medical Branch allopurinoL 2020-05 Yes [id number] 100mg Take 1 [facility] 100 mg 2-09 tablet by ity of tablet 00:00: mouth [place] 00 daily. Medical Branch allopurinoL 2020-05 Yes [id number] 100mg Take 1 [facility] 100 mg 2-09 tablet by ity of tablet 00:00: mouth [place] 00 daily. Medical Branch allopurinoL 2020-05 Yes [id number] 100mg Take 1 [facility] 100 mg 2-09 tablet by ity of tablet 00:00: mouth [place] 00 daily. Medical Branch allopurinoL 2020-05 Yes [id number] 100mg Take 1 [facility] 100 mg 2-09 tablet by ity of tablet 00:00: mouth [place] 00 daily. Medical Branch allopurinoL 2020-05 Yes [id number] 100mg Take 1 [facility] 100 mg 2-09 tablet by ity of tablet 00:00: mouth [place] 00 daily. Medical Branch allopurinoL 2020-05 Yes [id number] 100mg Take 1 [facility] 100 mg 2-09 tablet by ity of tablet 00:00: mouth [place] 00 daily. Medical Branch allopurinoL 2020-05 Yes [id number] 100mg Take 1 [facility] 100 mg 2-09 tablet by ity of tablet 00:00: mouth [place] 00 daily. Medical Branch allopurinoL 2020-05 Yes [id number] 100mg Take 1 [facility] 100 mg 2-09 tablet by ity of tablet 00:00: mouth [place] 00 daily. [facility] Branch allopurinoL 2020-05 Yes [id number] 100mg Take 1 [facility] 100 mg 2-09 tablet by ity of tablet 00:00: mouth [place] 00 daily. [facility] allopurinoL 2020-05 Yes [id number] 100mg Take 1 [facility] 100 mg 2-09 tablet by ity of tablet 00:00: mouth [place] 00 daily. [facility] allopurinoL 2020-05 Yes [id number] 100mg Take 1 [facility] 100 mg 2-09 tablet by ity of tablet 00:00: mouth [place] 00 daily. [facility] allopurinoL 2020-05 Yes [id number] 100mg Take 1 [facility] 100 mg 2-09 tablet by ity of tablet 00:00: mouth [place] 00 daily. [facility] allopurinoL 2020-05 Yes [id number] 100mg Take 1 [facility] 100 mg 2-09 tablet by ity of tablet 00:00: mouth [place] 00 daily. [facility] allopurinoL 2020-05 Yes [id number] 100mg Take 1 [facility] 100 mg 2-09 tablet by ity of tablet 00:00: mouth [place] 00 daily. [facility] allopurinoL 2020-05 Yes [id number] 100mg Take 1 [facility] 100 mg 2-09 tablet by ity of tablet 00:00: mouth [place] 00 daily. [facility] allopurinoL 2020-05 Yes [id number] 100mg Take 1 [facility] 100 mg 2-09 tablet by ity of tablet 00:00: mouth [place] 00 daily. [facility] allopurinoL 2020-05 Yes [id number] 100mg Take 1 [facility] 100 mg 2-09 tablet by ity of tablet 00:00: mouth [place] 00 daily. [facility] ondansetron 2020-05 Yes [id number] 4mg Take 1 [facility] 4 mg 1-12 tablet by ity of disintegrat 00:00: mouth [place] ing tablet 00 every 8 Medica l (eight) Branch hours as needed for Nausea and Vomiting (N/V). ondansetron 2020-05 Yes [id number] 4mg Take 1 [facility] 4 mg 1-12 tablet by ity of disintegrat 00:00: mouth [place] ing tablet 00 every 8 Medica l (eight) Branch hours as needed for Nausea and Vomiting (N/V). ondansetron 2020-05 Yes [id number] 4mg Take 1 [facility] 4 mg 1-12 tablet by ity of disintegrat 00:00: mouth [place] ing tablet 00 every 8 Medica l (eight) Branch hours as needed for Nausea and Vomiting (N/V). ondansetron 2020-05 Yes [id number] 4mg Take 1 [facility] 4 mg 1-12 tablet by ity of disintegrat 00:00: mouth [place] ing tablet 00 every 8 Medica l (eight) Branch hours as needed for Nausea and Vomiting (N/V). ondansetron 2020-05 Yes [id number] 4mg Take 1 [facility] 4 mg 1-12 tablet by ity of disintegrat 00:00: mouth [place] ing tablet 00 every 8 Medica l (eight) Branch hours as needed for Nausea and Vomiting (N/V). ondansetron 2020-05 Yes [id number] 4mg Take 1 [facility] 4 mg 1-12 tablet by ity of disintegrat 00:00: mouth [place] ing tablet 00 every 8 Medica l (eight) Branch hours as needed for Nausea and Vomiting (N/V). ondansetron 2020-05 Yes [id number] 4mg Take 1 [facility] 4 mg 1-12 tablet by ity of disintegrat 00:00: mouth [place] ing tablet 00 every 8 Medica l (eight) Branch hours as needed for Nausea and Vomiting (N/V). ondansetron 2020-05 Yes [id number] 4mg Take 1 [facility] 4 mg 1-12 tablet by ity of disintegrat 00:00: mouth [place] ing tablet 00 every 8 Medica l (eight) Branch hours as needed for Nausea and Vomiting (N/V). ondansetron 2020-05 Yes [id number] 4mg Take 1 [facility] 4 mg 1-12 tablet by ity of disintegrat 00:00: mouth [place] ing tablet 00 every 8 Medica l (eight) Branch hours as needed for Nausea and Vomiting (N/V). ondansetron 2020-05 Yes [id number] 4mg Take 1 [facility] 4 mg 1-12 tablet by ity of disintegrat 00:00: mouth [place] ing tablet 00 every 8 Medica l (eight) Branch hours as needed for Nausea and Vomiting (N/V). ondansetron 2020-05 Yes [id number] 4mg Take 1 [facility] 4 mg 1-12 tablet by ity of disintegrat 00:00: mouth [place] ing tablet 00 every 8 Medica l (eight) Branch hours as needed for Nausea and Vomiting (N/V). ondansetron 2020-05 Yes [id number] 4mg Take 1 [facility] 4 mg 1-12 tablet by ity of disintegrat 00:00: mouth [place] ing tablet 00 every 8 Medica l (eight) Branch hours as needed for Nausea and Vomiting (N/V). ondansetron 2020-05 Yes [id number] 4mg Take 1 [facility] 4 mg 1-12 tablet by ity of disintegrat 00:00: mouth [place] ing tablet 00 every 8 Medica l (eight) Branch hours as needed for Nausea and Vomiting (N/V). ondansetron 2020-05 Yes [id number] 4mg Take 1 [facility] 4 mg 1-12 tablet by ity of disintegrat 00:00: mouth [place] ing tablet 00 every 8 Medica l (eight) Branch hours as needed for Nausea and Vomiting (N/V). ondansetron 2020-05 Yes [id number] 4mg Take 1 [facility] 4 mg 1-12 tablet by ity of disintegrat 00:00: mouth [place] ing tablet 00 every 8 Medica l (eight) Branch hours as needed for Nausea and Vomiting (N/V). ondansetron 2020-05 Yes [id number] 4mg Take 1 [facility] 4 mg 1-12 tablet by ity of disintegrat 00:00: mouth [place] ing tablet 00 every 8 Medica l (eight) Branch hours as needed for Nausea and Vomiting (N/V). ondansetron 2020-05 Yes [id number] 4mg Take 1 [facility] 4 mg 1-12 tablet by ity of disintegrat 00:00: mouth [place] ing tablet 00 every 8 Medica l (eight) Branch hours as needed for Nausea and Vomiting (N/V). ondansetron 2020-05 Yes [id number] 4mg Take 1 [facility] 4 mg 1-12 tablet by ity of disintegrat 00:00: mouth [place] ing tablet 00 every 8 Medica l (eight) Branch hours as needed for Nausea and Vomiting (N/V). ondansetron 2020-05 Yes [id number] 4mg Take 1 [facility] 4 mg 1-12 tablet by ity of disintegrat 00:00: mouth [place] ing tablet 00 every 8 Medica l (eight) Branch hours as needed for Nausea and Vomiting (N/V). ondansetron 2020-05 Yes [id number] 4mg Take 1 [facility] 4 mg 1-12 tablet by ity of disintegrat 00:00: mouth [place] ing tablet 00 every 8 Medica l (eight) Branch hours as needed for Nausea and Vomiting (N/V). ondansetron 2020-05 Yes [id number] 4mg Take 1 [facility] 4 mg 1-12 tablet by ity of disintegrat 00:00: mouth [place] ing tablet 00 every 8 Medica l (eight) Branch hours as needed for Nausea and Vomiting (N/V). mupirocin 2 2020-05 Yes [id number] Apply to Univers % ointment 0-24 9104 area(s) 3 ity of 00:00: (three) [place] 00 times Medical daily. Branch mupirocin 2 2020-05 Yes [id number] Apply to Univers % ointment 0-24 9104 area(s) 3 ity of 00:00: (three) [place] 00 times Medical daily. Branch mupirocin 2 2020-05 Yes [id number] Apply to Univers % ointment 0-24 9104 area(s) 3 ity of 00:00: (three) [place] 00 times Medical daily. Branch mupirocin 2 2020-05 Yes [id number] Apply to Univers % ointment 0-24 9104 area(s) 3 ity of 00:00: (three) [place] 00 times Medical daily. Branch mupirocin 2 2020-05 Yes [id number] Apply to Univers % ointment 0-24 9104 area(s) 3 ity of 00:00: (three) [place] 00 times Medical daily. Branch mupirocin 2 2020-05 Yes [id number] Apply to Univers % ointment 0-24 9104 area(s) 3 ity of 00:00: (three) [place] 00 times Medical daily. Branch mupirocin 2 2020-05 Yes [id number] Apply to Univers % ointment 0-24 9104 area(s) 3 ity of 00:00: (three) [place] 00 times Medical daily. Branch mupirocin 2 2020-05 Yes [id number] Apply to Univers % ointment 0-24 9104 area(s) 3 ity of 00:00: (three) [place] 00 times Medical daily. Branch mupirocin 2 2020-05 Yes [id number] Apply to Univers % ointment 0-24 9104 area(s) 3 ity of 00:00: (three) [place] 00 times Medical daily. Branch mupirocin 2 2020-05 Yes [id number] Apply to Univers % ointment 0-24 9104 area(s) 3 ity of 00:00: (three) [place] 00 times Medical daily. Branch mupirocin 2 2020-05 Yes [id number] Apply to Univers % ointment 0-24 9104 area(s) 3 ity of 00:00: (three) [place] 00 times Medical daily. Branch mupirocin 2 2020-05 Yes [id number] Apply to Univers % ointment 0-24 9104 area(s) 3 ity of 00:00: (three) [place] 00 times Medical daily. Branch mupirocin 2 2020-05 Yes [id number] Apply to Univers % ointment 0-24 9104 area(s) 3 ity of 00:00: (three) [place] 00 times Medical daily. Branch mupirocin 2 2020-05 Yes [id number] Apply to Univers % ointment 0-24 9104 area(s) 3 ity of 00:00: (three) [place] 00 times Medical daily. Branch mupirocin 2 2020-05 Yes [id number] Apply to Univers % ointment 0-24 9104 area(s) 3 ity of 00:00: (three) [place] 00 times Medical daily. Branch mupirocin 2 2020-05 Yes [id number] Apply to Univers % ointment 0-24 9104 area(s) 3 ity of 00:00: (three) [place] 00 times Medical daily. Branch mupirocin 2 2020-05 Yes [id number] Apply to Univers % ointment 0-24 9104 area(s) 3 ity of 00:00: (three) [place] 00 times Medical daily. Branch mupirocin 2 2020-05 Yes [id number] Apply to Univers % ointment 0-24 9104 area(s) 3 ity of 00:00: (three) [place] 00 times Medical daily. Branch mupirocin 2 2020-05 Yes [id number] Apply to Univers % ointment 0-24 9104 area(s) 3 ity of 00:00: (three) [place] 00 times Medical daily. Branch mupirocin 2 2020-05 Yes [id number] Apply to Univers % ointment 0-24 9104 area(s) 3 ity of 00:00: (three) [place] 00 times Medical daily. Branch mupirocin 2 2020-05 Yes [id number] Apply to Univers % ointment 0-24 9104 area(s) 3 ity of 00:00: (three) [place] 00 times Medical daily. Branch pantoprazol 0 Yes 20mg Take 20 mg Univers e 20 mg EC 1-05 by mouth ity o f tablet 09:31: daily. [address] pantoprazol Yes 20mg Take 20 mg Univers e 20 mg EC 1-05 by mouth ity o f tablet 09:31: daily. [address] pantoprazol Yes 20mg Take 20 mg Univers e 20 mg EC 1-05 by mouth ity o f tablet 09:31: daily. [address] pantoprazol 0 Yes 20mg Take 20 mg Univers e 20 mg EC 1-05 by mouth ity o f tablet 09:31: daily. [address] pantoprazol 0 Yes 20mg Take 20 mg Univers e 20 mg EC 1-05 by mouth ity o f tablet 09:31: daily. [address] pantoprazol Yes 20mg Take 20 mg Univers e 20 mg EC 1-05 by mouth ity o f tablet 09:31: daily. [address] pantoprazol 0 Yes 20mg Take 20 mg Univers e 20 mg EC 1-05 by mouth ity o f tablet 09:31: daily. [address] pantoprazol 0 Yes 20mg Take 20 mg Univers e 20 mg EC 1-05 by mouth ity o f tablet 09:31: daily. [address] pantoprazol 0 Yes 20mg Take 20 mg Univers e 20 mg EC 1-05 by mouth ity o f tablet 09:31: daily. [address] pantoprazol 0 Yes 20mg Take 20 mg Univers e 20 mg EC 1-05 by mouth ity o f tablet 09:31: daily. [place] 18 Medical Branch alclomethas 2019-0 Yes alclometas [facility] - one 0.05 % st (ACLOVATE) 09:18: topical [facility] 0.05 % 28 cream l cream clobetasol 2019-0 Yes clobetasol M [facility]i (TEMOVATE) 08 0.05 % st 0.05 % 09:18: topical [facility] ointment 28 ointment l hydrocortis 2019-0 Yes hydrocorti [facility] one 2.5 % 11-27 sone 2.5 % st cream 09:18: topical [facility] 28 cream l alclomethas 2018- Yes alclometas [facility] one 11-27 one 0.05 % st (ACLOVATE) 09:18: topical [facility] 0.05 % 28 cream l cream clobetasol 2019-0 Yes clobetasol M [facility]i (TEMOVATE) 11-27 0.05 % st 0.05 % 09:18: topical [facility] ointment 28 ointment l diclofenac 2019-0 Yes 2g 2 g. [facility] (VOLTAREN) 11-27 st 1 % gel 09:18: [facility]osp[facility] 28 l fluocinonid 2019-0 Yes fluocinoni [facility] e (LIDEX) 11-27 de 0.05 % st 0.05 % 09:18: topical [facility] ointment 28 ointment l diclofenac 2019-0 Yes 2g 2 g. [facility]i (VOLTAREN) 11-27 st 1 % gel 09:18: [facility]ospita 28 l fluocinonid 2019-0 Yes fluocinoni Methodi e (LIDEX) 11-27 de 0.05 % st 0.05 % 09:18: topical [facility]ospita ointment 28 ointment l hydrocortis 2019-0 Yes hydrocorti Methodi one 2.5 % 11-27 sone 2.5 % st cream 09:18: topical [facility]ospita 28 cream l blood sugar 2019-0 Yes Check Metho di diagnostic 6-[address] strips 00:00: once daily Hospi ta (ONETOUCH 00 before l ULTRA BLUE breakfast; TEST STRIP) ICD-10 strip test code E11.9 strips blood sugar 2019-0 Yes Check Metho di diagnostic 6-[address] strips 00:00: once daily Hospi ta (ONETOUCH 00 before l ULTRA BLUE breakfast; TEST STRIP) ICD-10 strip test code E11.9 strips hydrOXYzine Yes Method i (ATARAX) 50 5-25 st MG tablet 00:00: Hospita 00 l hydrOXYzine Yes Method i (ATARAX) 50 5-25 st MG tablet 00:00: Hospita 00 l amLODIPine Yes 5mg Take 5 mg Me thodi (NORVASC) 5 -[address] mg tablet 00:00: Hospita 00 l amLODIPine 2019 Yes 5mg Take 5 mg Me thodi (NORVASC) 5 -[address] mg tablet 00:00: Hospita 00 l betamethaso Yes betamethas Methodi ne, 01-19, st augmented, 00:00: augmented Ho spita (DIPROLENE) 00 0.05 % l 0.05 % topical ointment ointment betamethaso Yes betamethas Methodi ne, 01-19, st augmented, 00:00: augmented Ho spita (DIPROLENE) 00 0.05 % l 0.05 % topical ointment ointment blood-gluco Yes Check Metho di se meter 4-[address] (ONETOUCH 00:00: once daily Ho spita ULTRA2 00 before l METER) kit breakfast; Diagnosis code E11.9 blood-gluco Yes Check Metho di se meter 4-[address] (ONETOUCH 00:00: once daily Ho spita ULTRA2 00 before l METER) kit breakfast; Diagnosis code E11.9 metFORMIN Yes metformin Met hodi XR 1-[address] (GLUCOPHAGE 00:00: tablet,ext Hospita -XR) 500 mg 00 ended l 24 hr release 24 tablet hr metFORMIN Yes metformin Met hodi XR 1-[address] (GLUCOPHAGE 00:00: tablet,ext [facility]ospita -XR) 500 mg 00 ended l 24 hr release 24 tablet hr Nystatin-Tr Nystatin-Tr Yes DALE Q0.5D APPLY 2 G M [facility] iamcinolone iamcinolone 1-09 WILLIS M.DNa Twice [facility] [id number] 00:00: daily ans UNIT/GM-% UNIT/GM-% 00 External External Cream Cream Oxybutynin Oxybutynin Yes DALE 1 QD TAKE 1 UT Chloride ER Chloride ER - LAZARO Young TABLET Physici 5 MG Oral [...] Immunizations Ordered Filled Immunization Date Status Comments [facility] e Immunization Name Name SARS-COV-2 COVID-19 2021-02-19 Completed Unive rsity of PFIZER VACCINE 00:00:00 [facility] SARS-COV-2 COVID-19 2021-02-19 Completed Unive rsity of PFIZER VACCINE 00:00:00 [facility] SARS-COV-2 COVID-19 2021-02-19 Completed Unive rsity of PFIZER VACCINE 00:00:00 [facility] SARS-COV-2 COVID-19 2021-02-19 Completed Unive rsity of PFIZER VACCINE 00:00:00 [facility] SARS-COV-2 COVID-19 2021-02-19 Completed Unive rsity of PFIZER VACCINE 00:00:00 [facility] SARS-COV-2 COVID-19 2021-02-19 Completed Unive rsity of PFIZER VACCINE 00:00:00 [facility] SARS-COV-2 COVID-19 2021-02-19 Completed Unive rsity of PFIZER VACCINE 00:00:00 [facility] SARS-COV-2 COVID-19 2021-02-19 Completed Unive rsity of PFIZER VACCINE 00:00:00 [facility] SARS-COV-2 COVID-19 2021-02-19 Completed Unive rsity of PFIZER VACCINE 00:00:00 [facility] SARS-COV-2 COVID-19 2021-02-19 Completed Unive rsity of PFIZER VACCINE 00:00:00 [facility] SARS-COV-2 COVID-19 2021-02-19 Completed Unive rsity of PFIZER VACCINE 00:00:00 [facility] SARS-COV-2 COVID-19 2021-02-19 Completed Unive rsity of PFIZER VACCINE 00:00:00 [facility] SARS-COV-2 COVID-19 2021-02-19 Completed Unive rsity of PFIZER VACCINE 00:00:00 [facility] SARS-COV-2 COVID-19 2021-02-19 Completed Unive rsity of PFIZER VACCINE 00:00:00 [facility] SARS-COV-2 COVID-19 2021-02-19 Completed Unive rsity of PFIZER VACCINE 00:00:00 [facility] SARS-COV-2 COVID-19 2021-02-19 Completed Unive rsity of PFIZER VACCINE 00:00:00 [facility] SARS-COV-2 COVID-19 2021-02-19 Completed Unive rsity of PFIZER VACCINE 00:00:00 [facility] SARS-COV-2 COVID-19 2021-02-19 Completed Unive rsity of PFIZER VACCINE 00:00:00 [facility] SARS-COV-2 COVID-19 2021-02-19 Completed Unive rsity of PFIZER VACCINE 00:00:00 [facility] SARS-COV-2 COVID-19 2021-02-19 Completed Unive rsity of PFIZER VACCINE 00:00:00 [facility] SARS-COV-2 COVID-19 2021-02-19 Completed Unive rsity of PFIZER VACCINE 00:00:00 [facility] SARS-COV-2 COVID-19 2020-07-03 Completed Unive rsity of PFIZER VACCINE 00:00:00 [facility] SARS-COV-2 COVID-19 2020-07-03 Completed Unive rsity of PFIZER VACCINE 00:00:00 [facility] SARS-COV-2 COVID-19 2020-07-03 Completed Unive rsity of PFIZER VACCINE 00:00:00 [facility] SARS-COV-2 COVID-19 2020-07-03 Completed Unive rsity of PFIZER VACCINE 00:00:00 [facility] SARS-COV-2 COVID-19 2020-07-03 Completed Unive rsity of PFIZER VACCINE 00:00:00 [facility] SARS-COV-2 COVID-19 2020-07-03 Completed Unive rsity of PFIZER VACCINE 00:00:00 [facility] SARS-COV-2 COVID-19 2020-07-03 Completed Unive rsity of PFIZER VACCINE 00:00:00 [facility] SARS-COV-2 COVID-19 2020-07-03 Completed Unive rsity of PFIZER VACCINE 00:00:00 [facility] SARS-COV-2 COVID-19 2020-07-03 Completed Unive rsity of PFIZER VACCINE 00:00:00 [facility] SARS-COV-2 COVID-19 2020-07-03 Completed Unive rsity of PFIZER VACCINE 00:00:00 [facility] SARS-COV-2 COVID-19 2020-07-03 Completed Unive rsity of PFIZER VACCINE 00:00:00 [facility] SARS-COV-2 COVID-19 2020-07-03 Completed Unive rsity of PFIZER VACCINE 00:00:00 [facility] SARS-COV-2 COVID-19 2020-07-03 Completed Unive rsity of PFIZER VACCINE 00:00:00 [facility] SARS-COV-2 COVID-19 2020-07-03 Completed Unive rsity of PFIZER VACCINE 00:00:00 [facility] SARS-COV-2 COVID-19 2020-07-03 Completed Unive rsity of PFIZER VACCINE 00:00:00 [facility] SARS-COV-2 COVID-19 2020-07-03 Completed Unive rsity of PFIZER VACCINE 00:00:00 [facility] SARS-COV-2 COVID-19 2020-07-03 Completed Unive rsity of PFIZER VACCINE 00:00:00 [facility] SARS-COV-2 COVID-19 2020-07-03 Completed Unive rsity of PFIZER VACCINE 00:00:00 [facility] SARS-COV-2 COVID-19 2020-07-03 Completed Unive rsity of PFIZER VACCINE 00:00:00 [facility] SARS-COV-2 COVID-19 2020-07-03 Completed Unive rsity of PFIZER VACCINE 00:00:00 [facility] SARS-COV-2 COVID-19 2020-07-03 Completed Unive rsity of PFIZER VACCINE 00:00:00 [facility] SARS-COV-2 COVID-19 2020-06-12 Completed Unive rsity of PFIZER VACCINE 00:00:00 [facility] SARS-COV-2 COVID-19 2020-06-12 Completed Unive rsity of PFIZER VACCINE 00:00:00 [facility] SARS-COV-2 COVID-19 2020-06-12 Completed Unive rsity of PFIZER VACCINE 00:00:00 [facility] SARS-COV-2 COVID-19 2020-06-12 Completed Unive rsity of PFIZER VACCINE 00:00:00 [facility] SARS-COV-2 COVID-19 2020-06-12 Completed Unive rsity of PFIZER VACCINE 00:00:00 [facility] SARS-COV-2 COVID-19 2020-06-12 Completed Unive rsity of PFIZER VACCINE 00:00:00 [facility] SARS-COV-2 COVID-19 2020-06-12 Completed Unive rsity of PFIZER VACCINE 00:00:00 [facility] SARS-COV-2 COVID-19 2020-06-12 Completed Unive rsity of PFIZER VACCINE 00:00:00 [facility] SARS-COV-2 COVID-19 2020-06-12 Completed Unive rsity of PFIZER VACCINE 00:00:00 [facility] SARS-COV-2 COVID-19 2020-06-12 Completed Unive rsity of PFIZER VACCINE 00:00:00 [facility] SARS-COV-2 COVID-19 2020-06-12 Completed Unive rsity of PFIZER VACCINE 00:00:00 [facility] SARS-COV-2 COVID-19 2020-06-12 Completed Unive rsity of PFIZER VACCINE 00:00:00 [facility] SARS-COV-2 COVID-19 2020-06-12 Completed Unive rsity of PFIZER VACCINE 00:00:00 [facility] SARS-COV-2 COVID-19 2020-06-12 Completed Unive rsity of PFIZER VACCINE 00:00:00 [facility] SARS-COV-2 COVID-19 2020-06-12 Completed Unive rsity of PFIZER VACCINE 00:00:00 [facility] SARS-COV-2 COVID-19 2020-06-12 Completed Unive rsity of PFIZER VACCINE 00:00:00 [facility] SARS-COV-2 COVID-19 2020-06-12 Completed Unive rsity of PFIZER VACCINE 00:00:00 [facility] SARS-COV-2 COVID-19 2020-06-12 Completed Unive rsity of PFIZER VACCINE 00:00:00 [facility] SARS-COV-2 COVID-19 2020-06-12 Completed Unive rsity of PFIZER VACCINE 00:00:00 [facility] SARS-COV-2 COVID-19 2020-06-12 Completed Unive rsity of PFIZER VACCINE 00:00:00 [facility] SARS-COV-2 COVID-19 2020-06-12 Completed Unive rsity of PFIZER VACCINE 00:00:00 [facility] Zoster Vaccine 2020-03-21 Completed University of Recombinant 00:00:00 [facility] Zoster Vaccine 2020-03-21 Completed University of Recombinant 00:00:00 [facility] Zoster Vaccine 2020-03-21 Completed University of Recombinant 00:00:00 [facility] Zoster Vaccine 2020-03-21 Completed University of Recombinant 00:00:00 [facility] Zoster Vaccine 2020-03-21 Completed [facility] of Recombinant 00:00:00 [facility] Zoster Vaccine 2020-03-21 Completed [facility] of Recombinant 00:00:00 [facility] Zoster Vaccine 2020-03-21 Completed [facility] of Recombinant 00:00:00 [facility] Zoster Vaccine 2020-03-21 Completed [facility] of Recombinant 00:00:00 [facility] Zoster Vaccine 2020-03-21 Completed [facility] of Recombinant 00:00:00 [facility] Zoster Vaccine 2020-03-21 Completed [facility] of Recombinant 00:00:00 [facility] Zoster Vaccine 2020-03-21 Completed [facility] of Recombinant 00:00:00 [facility] Zoster Vaccine 2020-03-21 Completed [facility] of Recombinant 00:00:00 [facility] Zoster Vaccine 2020-03-21 Completed [facility] of Recombinant 00:00:00 [facility] Zoster Vaccine 2020-03-21 Completed [facility] of Recombinant 00:00:00 [facility] Zoster Vaccine 2020-03-21 Completed [facility] of Recombinant 00:00:00 [facility] Zoster Vaccine 2020-03-21 Completed [facility] of Recombinant 00:00:00 [facility] Zoster Vaccine 2020-03-21 Completed [facility] of Recombinant 00:00:00 [facility] Zoster Vaccine 2020-03-21 Completed [facility] of Recombinant 00:00:00 [facility] Zoster Vaccine 2020-03-21 Completed [facility] of Recombinant 00:00:00 [facility] Zoster Vaccine 2020-03-21 Completed [facility] of Recombinant 00:00:00 [facility] Zoster Vaccine 2020-03-21 Completed [facility] of Recombinant 00:00:00 [facility] Zoster Vaccine 2019-12-06 Completed [facility] of Recombinant 00:00:00 [facility] Zoster Vaccine 2019-12-06 Completed [facility] of Recombinant 00:00:00 [facility] Zoster Vaccine 2019-12-06 Completed [facility] of Recombinant 00:00:00 [facility] Zoster Vaccine 2019-12-06 Completed [facility] of Recombinant 00:00:00 [facility] Zoster Vaccine 2019-12-06 Completed [facility] of Recombinant 00:00:00 [facility] Zoster Vaccine 2019-12-06 Completed [facility] of Recombinant 00:00:00 [facility] Zoster Vaccine 2019-12-06 Completed [facility] of Recombinant 00:00:00 [facility] Zoster Vaccine 2019-12-06 Completed [facility] of Recombinant 00:00:00 [facility] Zoster Vaccine 2019-12-06 Completed [facility] of Recombinant 00:00:00 [facility] Zoster Vaccine 2019-12-06 Completed [facility] of Recombinant 00:00:00 [facility] Zoster Vaccine 2019-12-06 Completed [facility] of Recombinant 00:00:00 [facility] Zoster Vaccine 2019-12-06 Completed [facility] of Recombinant 00:00:00 [facility] Zoster Vaccine 2019-12-06 Completed [facility] of Recombinant 00:00:00 [facility] Zoster Vaccine 2019-12-06 Completed [facility] of Recombinant 00:00:00 [facility] Zoster Vaccine 2019-12-06 Completed [facility] of Recombinant 00:00:00 [facility] Zoster Vaccine 2019-12-06 Completed [facility] of Recombinant 00:00:00 [facility] Zoster Vaccine 2019-12-06 Completed [facility] of Recombinant 00:00:00 [facility] Zoster Vaccine 2019-12-06 Completed [facility] of Recombinant 00:00:00 [facility] Zoster Vaccine 2019-12-06 Completed [facility] of Recombinant 00:00:00 [facility] Zoster Vaccine 2019-12-06 Completed [facility] of Recombinant 00:00:00 [facility] Zoster Vaccine 2019-12-06 Completed [facility] of Recombinant 00:00:00 [facility] Pneumococcal 2019-03-31 Completed University o f Polysaccharide, 00:00:00 [place] [facility] PPSV23 (PNEUMOVAX) [facility] Pneumococcal 2019-03-31 Completed University o f Polysaccharide, 00:00:00 [place] [facility] PPSV23 (PNEUMOVAX) Branch Pneumococcal 2019-03-31 Completed University o f Polysaccharide, 00:00:00 [place] [facility] PPSV23 (PNEUMOVAX) Branch Pneumococcal 2019-03-31 Completed University o f Polysaccharide, 00:00:00 [place] [facility] PPSV23 (PNEUMOVAX) Branch Pneumococcal 2019-03-31 Completed University o f Polysaccharide, 00:00:00 [place] [facility] PPSV23 (PNEUMOVAX) Branch Pneumococcal 2019-03-31 Completed University o f Polysaccharide, 00:00:00 [place] [facility] PPSV23 (PNEUMOVAX) Branch Pneumococcal 2019-03-31 Completed University o f Polysaccharide, 00:00:00 [place] [facility] PPSV23 (PNEUMOVAX) Branch Pneumococcal 2019-03-31 Completed University o f Polysaccharide, 00:00:00 [place] [facility] PPSV23 (PNEUMOVAX) Branch Pneumococcal 2019-03-31 Completed University o f Polysaccharide, 00:00:00 [place] [facility] PPSV23 (PNEUMOVAX) Branch Pneumococcal 2019-03-31 Completed University o f Polysaccharide, 00:00:00 [place] [facility] PPSV23 (PNEUMOVAX) Branch Pneumococcal 2019-03-31 Completed University o f Polysaccharide, 00:00:00 [place] [facility] PPSV23 (PNEUMOVAX) Branch Pneumococcal 2019-03-31 Completed University o f Polysaccharide, 00:00:00 [place] [facility] PPSV23 (PNEUMOVAX) Branch Pneumococcal 2019-03-31 Completed University o f Polysaccharide, 00:00:00 [place] [facility] PPSV23 (PNEUMOVAX) Branch Pneumococcal 2019-03-31 Completed University o f Polysaccharide, 00:00:00 [place] [facility] PPSV23 (PNEUMOVAX) Branch Pneumococcal 2019-03-31 Completed University o f Polysaccharide, 00:00:00 [place] [facility] PPSV23 (PNEUMOVAX) Branch Pneumococcal 2019-03-31 Completed University o f Polysaccharide, 00:00:00 [place] [facility] PPSV23 (PNEUMOVAX) Branch Pneumococcal 2019-03-31 Completed University o f Polysaccharide, 00:00:00 [place] [facility] PPSV23 (PNEUMOVAX) Branch Pneumococcal 2019-03-31 Completed University o f Polysaccharide, 00:00:00 [place] [facility] PPSV23 (PNEUMOVAX) Branch Pneumococcal 2019-03-31 Completed University o f Polysaccharide, 00:00:00 [place] [facility] PPSV23 (PNEUMOVAX) Branch Pneumococcal 2019-03-31 Completed University o f Polysaccharide, 00:00:00 [place] [facility] PPSV23 (PNEUMOVAX) Branch Pneumococcal 2019-03-31 Completed University o f Polysaccharide, 00:00:00 [place] [facility] PPSV23 (PNEUMOVAX) Branch Pneumococcal 2016-05-23 Completed [facility] o f Polysaccharide, 00:00:00 [place] [facility] PPSV23 (PNEUMOVAX) Branch Pneumococcal 2016-05-23 Completed [facility] o f Polysaccharide, 00:00:00 [place] [facility] PPSV23 (PNEUMOVAX) Branch Pneumococcal 2016-05-23 Completed [facility] o f Polysaccharide, 00:00:00 [place] [facility] PPSV23 (PNEUMOVAX) Branch Pneumococcal 2016-05-23 Completed [facility] o f Polysaccharide, 00:00:00 [place] [facility] PPSV23 (PNEUMOVAX) Branch Pneumococcal 2016-05-23 Completed [facility] o f Polysaccharide, 00:00:00 [place] [facility] PPSV23 (PNEUMOVAX) Branch Pneumococcal 2016-05-23 Completed [facility] o f Polysaccharide, 00:00:00 [place] [facility] PPSV23 (PNEUMOVAX) Branch Pneumococcal 2016-05-23 Completed [facility] o f Polysaccharide, 00:00:00 [place] [facility] PPSV23 (PNEUMOVAX) Branch Pneumococcal 2016-05-23 Completed [facility] o f Polysaccharide, 00:00:00 [place] [facility] PPSV23 (PNEUMOVAX) Branch Pneumococcal 2016-05-23 Completed University o f Polysaccharide, 00:00:00 [place] [facility] PPSV23 (PNEUMOVAX) Branch Pneumococcal 2016-05-23 Completed University o f Polysaccharide, 00:00:00 [place] [facility] PPSV23 (PNEUMOVAX) Branch Pneumococcal 2016-05-23 Completed University o f Polysaccharide, 00:00:00 [place] [facility] PPSV23 (PNEUMOVAX) Branch Pneumococcal 2016-05-23 Completed University o f Polysaccharide, 00:00:00 [place] [facility] PPSV23 (PNEUMOVAX) Branch Pneumococcal 2016-05-23 Completed University o f Polysaccharide, 00:00:00 [place] [facility] PPSV23 (PNEUMOVAX) Branch Pneumococcal 2016-05-23 Completed University o f Polysaccharide, 00:00:00 [place] [facility] PPSV23 (PNEUMOVAX) Branch Pneumococcal 2016-05-23 Completed [facility] o f Polysaccharide, 00:00:00 [place] [facility] PPSV23 (PNEUMOVAX) Branch Pneumococcal 2016-05-23 Completed University o f Polysaccharide, 00:00:00 [place] [facility] PPSV23 (PNEUMOVAX) Branch Pneumococcal 2016-05-23 Completed University o f Polysaccharide, 00:00:00 [place] [facility] PPSV23 (PNEUMOVAX) Branch Pneumococcal 2016-05-23 Completed [facility] o f Polysaccharide, 00:00:00 [place] [facility] PPSV23 (PNEUMOVAX) Branch Pneumococcal 2016-05-23 Completed [facility] o f Polysaccharide, 00:00:00 [place] [facility] PPSV23 (PNEUMOVAX) Branch Pneumococcal 2016-05-23 Completed [facility] o f Polysaccharide, 00:00:00 [place] [facility] PPSV23 (PNEUMOVAX) Branch Pneumococcal 2016-05-23 Completed [facility] o f Polysaccharide, 00:00:00 [place] [facility] PPSV23 (PNEUMOVAX) Branch Pneumococcal 2009-05-23 Completed [facility] o f Polysaccharide, 00:00:00 [place] [facility] PPSV23 (PNEUMOVAX) Branch Pneumococcal 2009-05-23 Completed [facility] o f Polysaccharide, 00:00:00 [place] [facility] PPSV23 (PNEUMOVAX) Branch Pneumococcal 2009-05-23 Completed [facility] o f Polysaccharide, 00:00:00 [place] [facility] PPSV23 (PNEUMOVAX) Branch Pneumococcal 2009-05-23 Completed [facility] o f Polysaccharide, 00:00:00 [place] [facility] PPSV23 (PNEUMOVAX) Branch Pneumococcal 2009-05-23 Completed [facility] o f Polysaccharide, 00:00:00 [place] [facility] PPSV23 (PNEUMOVAX) Branch Pneumococcal 2009-05-23 Completed [facility] o f Polysaccharide, 00:00:00 [place] [facility] PPSV23 (PNEUMOVAX) Branch Pneumococcal 2009-05-23 Completed [facility] o f Polysaccharide, 00:00:00 [place] [facility] PPSV23 (PNEUMOVAX) Branch Pneumococcal 2009-05-23 Completed [facility] o f Polysaccharide, 00:00:00 [place] [facility] PPSV23 (PNEUMOVAX) Branch Pneumococcal 2009-05-23 Completed [facility] o f Polysaccharide, 00:00:00 [place] [facility] PPSV23 (PNEUMOVAX) Branch Pneumococcal 2009-05-23 Completed [facility] o f Polysaccharide, 00:00:00 [place] [facility] PPSV23 (PNEUMOVAX) Branch Pneumococcal 2009-05-23 Completed [facility] o f Polysaccharide, 00:00:00 [place] [facility] PPSV23 (PNEUMOVAX) Branch Pneumococcal 2009-05-23 Completed [facility] o f Polysaccharide, 00:00:00 [place] [facility] PPSV23 (PNEUMOVAX) Branch Pneumococcal 2009-05-23 Completed [facility] o f Polysaccharide, 00:00:00 [place] [facility] PPSV23 (PNEUMOVAX) Branch Pneumococcal 2009-05-23 Completed [facility] o f Polysaccharide, 00:00:00 [place] [facility] PPSV23 (PNEUMOVAX) Branch Pneumococcal 2009-05-23 Completed [facility] o f Polysaccharide, 00:00:00 [place] [facility] PPSV23 (PNEUMOVAX) Branch Pneumococcal 2009-05-23 Completed [facility] o f Polysaccharide, 00:00:00 [place] [facility] PPSV23 (PNEUMOVAX) Branch Pneumococcal 2009-05-23 Completed [facility] o f Polysaccharide, 00:00:00 [place] [facility] PPSV23 (PNEUMOVAX) Branch Pneumococcal 2009-05-23 Completed [facility] o f Polysaccharide, 00:00:00 [place] [facility] PPSV23 (PNEUMOVAX) Branch Pneumococcal 2009-05-23 Completed [facility] o f Polysaccharide, 00:00:00 [place] [facility] PPSV23 (PNEUMOVAX) Branch Pneumococcal 2009-05-23 Completed [facility] o f Polysaccharide, 00:00:00 [place] [facility] PPSV23 (PNEUMOVAX) Branch Pneumococcal 2009-05-23 Completed [facility] o f Polysaccharide, 00:00:00 [place] [facility] PPSV23 (PNEUMOVAX) Branch Vital Signs Vital Name Observation Time Observation Value Comments Source Systolic blood 2022-03-26 14:47:00 123 mm[Hg] Univer sity of pressure [facility] Diastolic blood 2022-03-26 14:47:00 80 mm[Hg] Unive [facility] Heart rate 2022-03-26 14:47:00 71 /min [facility] Body temperature 2022-03-26 14:47:00 [facility].78 [facility] 2022-03-26 14:47:00 18 /min [facility] Body height 2022-03-26 14:47:00 165.1 cm [facility] Body weight 2022-03-26 14:47:00 115.214 kg [facility] BMI 2022-03-26 14:47:00 42.27 kg/m2 [facility] Systolic blood 2022-03-11 16:30:00 134 mm[Hg] Univer [facility] Diastolic blood 2022-03-11 16:30:00 74 mm[Hg] Unive rsity of [facility] Heart rate 2022-03-11 16:25:00 90 /min [facility] Respiratory rate 2022-03-11 16:25:00 13 /min [facility] Oxygen saturation in 2022-03-11 16:25:00 94 /min [facility] Arterial blood by [place] [facility] Pulse oximetry [facility] Body temperature 2022-03-11 15:15:00 36.11 Jennifer [facility] Body height 2022-02-15 18:19:00 167.6 cm [facility] Body weight 2022-02-15 18:19:00 118.7 kg [facility] BMI 2022-02-15 18:19:00 42.26 kg/m2 [facility] Systolic blood 2022-03-11 12:29:00 140 mm[Hg] Univer [facility]ity [facility] Diastolic blood 2022-03-11 12:29:00 62 mm[Hg] Unive rsity of [facility] Heart rate 2022-03-11 12:29:00 96 /min [facility] Body temperature 2022-03-11 12:29:00 36.33 Jennifer [facility] Respiratory rate 2022-03-11 12:29:00 18 /min [facility] Oxygen saturation in 2022-03-11 12:29:00 99 /min [facility] of Arterial blood by YODIL toni Pulse oximetry Branch Body height 2022-02-15 18:19:00 167.6 cm [facility] [place] [facility] Body weight 2022-02-15 18:19:00 118.7 kg [facility] BMI 2022-02-15 18:19:00 42.26 kg/m2 [facility] Systolic blood 2022-03-11 00:27:00 121 mm[Hg] Univer sity [facility] Diastolic blood 2022-03-11 00:27:00 84 mm[Hg[facility] rate 2022-03-11 00:27:00 94 /min [facility] Body temperature 2022-03-11 00:27:00 37.17 [facility] Res[facility] rate 2022-03-11 00:27:00 18 /min [facility] Body height 2022-03-11 00:27:00 167.6 cm [facility] Body weight 2022-03-11 00:27:00 115.713 kg [facility] BMI 2022-03-11 00:27:00 41.20 kg/m2 [facility] Oxygen saturation in 2022-03-11 00:27:00 98 /min [facility] Arterial blood by [facility] Pulse oximetry Branch Weight 2018-09-01 09:30:00 241.375 [lb_av] [facility] Body Mass Index 2018-09-01 09:30:00 38.96 kg/m2 [facility] Calculated Height 2018-09-01 09:30:00 66 [in_us] [facility] Height 2018-03-24 10:49:00 66 [in_us] [facility] Weight 2018-03-24 10:49:00 238 [lb_av] [facility] Body Mass Index 2018-03-24 10:49:00 38.41 kg/m2 [facility] Calculated Procedures Procedure Date / Time Performing Clinician Source Performed EXTERNAL PROVIDER RECORDS 2022-04-06 06:01:00 Doctor Unassigned, [facility] [place] [facility] ASSIGNMENT OF BENEFITS 2022-03-26 14:32:31 Doctor Unassigned, [facility] Name Medical Branch CYSTOSCOPY 2022-03-11 13:52:00 Alexandria Lowe Sawyer o f [facility] EXAM UNDER ANESTHESIA 2022-03-11 13:52:00 Alexandria Lowe [facility] BOTOX INJECTION 2022-03-11 13:52:00 Alexandria Lowe [facility] CYSTOSCOPY 2022-03-11 13:52:00 Alexandria Lowe [facility] EXAM UNDER ANESTHESIA 2022-03-11 13:52:00 Alexandria Lowe [facility] BOTOX INJECTION 2022-03-11 13:52:00 Alexandria Lowe [facility] POCT GLUCOSE (AUTOMATED) 2022-03-11 12:47:00 Alexandria Lowe [facility] POCT GLUCOSE (AUTOMATED) 2022-03-11 12:47:00 Alexandria Lowe [facility] DAY SURGERY - ADC 2022-03-11 05:01:00 Doctor Pan, [facility] [place] [facility] CONSENT/REFUSAL FOR 2022-02-15 19:55:32 Doctor Pan, [facility] DIAGNOSIS AND TREATMENT [place] [facility] CONSENT/REFUSAL FOR 2022-02-15 19:55:32 Doctor Pan, [facility] DIAGNOSIS AND TREATMENT [place] [facility] ASSIGNMENT OF BENEFITS 2022-02-15 19:54:41 Doctor Pan, [facility] [place] [facility] ASSIGNMENT OF BENEFITS 2022-02-15 19:54:41 Doctor Unassigned, [facility] Name Medical Branch EXTERNAL PROVIDER RECORDS 2022-02-10 05:01:00 Doctor Pan, [facility] [place] [facility] [U] XRAY KNEE 4 OR MORE 2018-03-21 00:00:00 [facility] VWS LEFT [id number] History of Cholecystectomy [facility] History of Treatment Of [facility] The Right Leg History of Shoulder [facility] Right History of Kidney Surgery [facility] Plan of Care Planned Activity Planned Date Details Comments Source Future Scheduled 2022-03-26 HEPATITIS B VACCINES [facility] Test 06:53:24 (1 of 3 - 3-dose series) [code = HEPATITIS B VACCINES (1 of 3 - 3-dose series)] Future Scheduled 2022-03-26 COVID-19 VACCINE (#1) [facility] Test 06:53:24 [code = COVID-19 VACCINE (#1)] Future Scheduled 2022-03-26 BREAST CANCER [facility] Test 06:53:24 SCREENING [code = BREAST CANCER SCREENING] Future Scheduled 2022-03-26 COLONOSCOPY SCREENING [facility] Test 06:53:24 [code = COLONOSCOPY SCREENING] Future Scheduled 2022-03-26 SHINGLES VACCINES (1 Met [facility] Test 06:53:24 of 2) [code = SHINGLES VACCINES (1 of 2)] Future Scheduled 2022-03-26 65+ [facility]OCOCCAL [facility] Test 06:53:24 VACCINE (2 - PCV) [code = 65+ PNEUMOCOCCAL VACCINE (2 - PCV)] Future Scheduled 2022-03-26 INFLUENZA VACCINE [facility] Test 06:53:24 [code = INFLUENZA VACCINE] Future Scheduled 2022-01-20 HEPATITIS B VACCINES [facility] Test 19:31:47 (1 of 3 - 3-dose series) [code = HEPATITIS B VACCINES (1 of 3 - 3-dose series)] Future Scheduled 2022-01-20 COVID-19 VACCINE (#1) [facility] Test 19:31:47 [code = COVID-19 VACCINE (#1)] Future Scheduled 2022-01-20 BREAST CANCER [facility] Test 19:31:47 SCREENING [code = BREAST CANCER SCREENING] Future Scheduled 2022-01-20 COLONOSCOPY SCREENING [facility] Test 19:31:47 [code = COLONOSCOPY SCREENING] Future Scheduled 2022-01-20 SHINGLES VACCINES (1 Met [facility] Test 19:31:47 of 2) [code = SHINGLES VACCINES (1 of 2)] Future Scheduled 2022-01-20 65+ PNEUMOCOCCAL Methodi [facility] Test 19:31:47 VACCINE (2 - PCV) [code = 65+ PNEUMOCOCCAL VACCINE (2 - PCV)] Future Scheduled 2022-01-20 INFLUENZA VACCINE Method [facility] Test 19:31:47 [code = INFLUENZA VACCINE] Encounters Start End Encounter Admission Attending Care Care Encounter Source Date/Time Date/Time Type Type Clinicians Facility Department ID 2021-03-20 [id number] Univers 16:57:39 CASEY [facility] 2021-03-20 Outpatient ENRIQUETA [facility] [id number] Univers 03:06:42 SONDRA Kate [facility] 2020-11-05 [facility] [id number] [place] 14:18:26 [facility] 2022-10-21 2022-10-21 Outpatient Alexander PENA [facility] [id number] Univers 14:00:00 14:00:00 [facility] 2022-10-21 2022-10-21 Outpatient [facility] [id number] Univers 14:00:00 14:00:00 [facility] 2022-04-06 2022-04-06 Orders Doctor ZO 1.2.840.114 [id number] Univers 00:00:00 00:00:00 Only Unassigned, LILLY 350.1.13.10 ity of [place] [facility] 4.2.7.2.686 Malachi as [id number] [address] 2022-03-26 2022-03-26 Outpatient Alexander [facility] [id number] Univers 10:00:00 10:12:46 [facility] 2022-03-26 2022-03-26 Office [facility] 1.2.840.114 [id number] Univers 10:00:00 10:12:46 Visit Alexandria OSPINA 350.1.13.10 i ty [facility] [place] [phone] [place] [id number] [facility] 2022-03-26 2022-03-26 Orders Doctor ZO 1.2.840.114 [id number] Univers 00:00:00 00:00:00 Only Unassigned, LILLY 350.1.13.10 ity of [place] [facility] 4.2.7.2.686 Malachi as [id number] [address] 2022-03-11 2022-03-11 Outpatient [facility] 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 [id number] Univers 07:21:00 11:44:00 [facility] 2022-03-11 2022-03-11 Hospital [facility] 1.2.066.931 [id number] Univers 07:21:00 11:44:00 Encounter Alexandria OSPINA 350.1.13.10 ity [facility] 4.2.7.2.[place]ICAL [id number] [facility] 071 Branch 2022-03-11 2022-03-11 Surgery [facility] 1.2.840.114 [id number] Univers 08:45:00 10:05:00 Alexandria BHAVESH 350.1.13.10 i ty of [facility] 4.2.7.2.[place]ICAL [id number] [facility] 020 Branch 2022-03-11 2022-03-11 Orders Doctor ZO 1.2.840.114 [id number] Univers 00:00:00 00:00:00 Only Unassigned, LILLY 350.1.13.10 ity of [place] [facility] 4.2.7.2.686 Malachi as [id number] [address] 2022-03-10 2022-03-10 Outpatient R KRISTOFER [facility] [id number] Univers 19:00:00 19:38:31 AMY banda o f [facility] 2022-03-10 2022-03-10 Urgent Amy Miner [facility] 1.2.840. 114 [id number] Univers 19:00:00 19:38:31 Care Unknown, Attending HEALTH 350.1.13.10 ity [facility] 4.2.7.2.686 Malachi as SHAI?BLEA [phone] Nc margret BAEEY [address] MEDICAL OFFICE BUILDING 2022-03-03 2022-03-03 Telephone [facility] 1.2.840.114 [id number] Univers 00:00:00 00:00:00 Michael OSPINA 350.1.13.10 i ty of [facility] 4.2.7.2.[place] [id number] Nc margret BEAR 044 Branch BUILDING 2022-02-15 2022-02-15 Telemedici [facility] 1.2.840.114 [id number] Univers 16:30:00 17:00:00 ne Visit Alexandria OSPINA 350.1.13.10 ity of [facility] 4.2.7.2.[place] [id number] Nc dical NAL 098 [facility] 2022-02-15 2022-02-15 Outpatient R MYNOR [facility] [id number] Univers 16:30:00 16:30:00 ALEXANDRIA banda [facility] 2022-02-15 2022-02-15 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 Henao Lab Main [facility] 1.2.8 40.114 [id number] Univers 14:45:00 15:00:00 Visit Alexandria Lowe BHAVESH 350.1.13.10 ity of [place] 4.2.7.2.[place] [id number] Nc dicnc NAL 353 [facility] 2022-02-15 2022-02-15 Outpatient R MYNOR [facility] [id number] Univers 14:45:00 14:45:00 ALEXANDRIA banda [facility] 2022-02-15 2022-02-15 Prep [facility] 1.2.543.400 [id number] Univers 00:00:00 00:00:00 Surgery Alexandria OSPINA 350.1.13.10 i ty of [place] 4.2.7.2.[place] [id number] Nc dicnc NAL 098 [facility] 2022-02-10 2022-02-10 Orders Doctor ZO 1.2.840.114 [id number] Univers 00:00:00 00:00:00 Only Unassigned, LILLY 350.1.13.10 ity of [place] [facility] 4.2.7.2.686 Malachi as [id number] [address] 2022-02-08 2022-02-08 Telephone [facility] 1.2.840.114 [id number] Univers 00:00:00 00:00:00 Michael OSPINA 350.1.13.10 i ty of [place] 4.2.7.2.[place] [id number] Nc dicnc NAL 044 [facility] 2022-02-03 2022-02-03 Telephone [facility] 1.2.840.114 [id number] Univers 00:00:00 00:00:00 Michael OSPINA 350.1.13.10 i ty of [place] 4.2.7.2.[place] [id number] Nc dical NAL 231 [facility] 2021-12-31 2021-12-31 Refill [facility] 1.2.840.114 [id number] Univers 00:00:00 00:00:00 Michael OSPINA 350.1.13.10 i ty of [facility] 4.2.7.2.[place] [id number] Nc dical NAL 044 [facility] 2021-12-30 2021-12-30 Refill [facility] 1.2.840.114 [id number] Univers 00:00:00 00:00:00 Michael OSPINA 350.1.13.10 i ty of [facility] 4.2.7.2.[place] [id number] Nc dical NAL 044 [facility] 2021-12-25 2021-12-25 Telephone [facility] 1.2.840.114 [id number] Univers 00:00:00 00:00:00 Michael OSPINA 350.1.13.10 i ty of [facility] 4.2.7.2.[place] [id number] Nc dical NAL 044 [facility] 2021-12-24 2021-12-24 Telephone [facility] 1.2.840.114 [id number] Univers 00:00:00 00:00:00 Michael OSPINA 350.1.13.10 i ty of [facility] 4.2.7.2.686 [place] [id number] Nc dical NAL 231 [facility] 2021-12-23 2021-12-23 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 [id number] Univers 08:00:00 08:49:44 MICHAEL banda [facility] 2021-12-23 2021-12-23 Office [facility] 1.2.840.114 [id number] Univers 08:00:00 08:49:44 Visit Michael OSPINA 350.1.13.10 i ty of [place] 4.2.7.2.[place] [id number] Nc dical NAL [address] [place] [address] 2021-12-23 2021-12-23 Outpatient R [facility]PAT[facility] [id number] Univers 08:00:00 08:00:00 MICHAEL banda [facility] 2021-12-15 2021-12-15 Refill [facility] 1.2.840.114 [id number] Univers 00:00:00 00:00:00 Michael OSPINA 350.1.13.10 i ty of [place] 4.2.7.2.[place] [phone] Nc dicnc NAL [address] [place] [address] 2021-12-07 2021-12-07 Outpatient R MYNOR [facility] [id number] Univers 10:00:00 10:00:00 ALEXANDRIA banda [facility] 2021-12-04 2021-12-04 Telephone [facility] 1.2.840.114 [id number] Univers 00:00:00 00:00:00 Naeem BAUTISTATON 350.1.13.10 ity of [place] 4.2.7.2.[place] [id number] Nc dical NAL [address] [place] [address] 2021-12-04 2021-12-04 Telephone [facility] 1.2.840.114 [id number] Univers 00:00:00 00:00:00 Ogmarcellu [place] 350.1.13.10 ity of [facility] 4.2.7.2.[place] [id number] Nc dical NAL [address] [place] [address] 2021-11-25 2021-11-25 Outpatient R KRISTIAN UREÑA [facility] [id number] Univers 09:00:00 09:00:00 ity of [facility] 2021-11-12 2021-11-12 Telephone [facility] 1.2.657.472 [id number] Univers 00:00:00 00:00:00 Harper HEALTH 350.1.13.10 it y of [place] 4.2.7.2.686 Malachi as SHAI?BLEA [id number] [address] OFFICE [facility] 2021-11-02 2021-11-02 Telephone [facility] 1.2.840.114 [id number] Univers 00:00:00 00:00:00 Alexandria BAUTISTACHERELLE 350.1.13.10 i ty of [facility] 4.2.7.2.[place] [id number] [address] 2021-10-30 2021-10-30 Telephone [facility] 1.2.840.114 [id number] Univers 00:00:00 00:00:00 Alexandria BAUTISTACHERELLE 350.1.13.10 i ty of [facility] 4.2.7.2.[place] [id number] [address] 2021-10-28 2021-10-28 Refill [facility] 1.2.840.114 [id number] Univers 00:00:00 00:00:00 Wondiful A HEALTH 350.1.13.10 [place]y of [place] 4.2.7.2.686 Malachi as SHAI?BLEA [id number] [address] OFFICE [facility] 2021-10-26 2021-10-26 Office [facility] 1.2.840.114 [id number] Univers 14:30:00 15:09:33 Visit Alexandria BHAVESH 350.1.13.10 i ty of [facility] 4.2.7.2.686 [place] [id number] [facility] 098 [facility] 2021-10-26 2021-10-26 Outpatient [facility] [id number] Univers 14:30:00 15:09:33 ALEXANDRIA imani [facility] 2021-10-26 2021-10-26 Outpatient Alexander LOWE [facility] [id number] Univers 14:30:00 15:09:33 ALEXANDRIA imani [facility] 2021-10-26 2021-10-26 Outpatient Alexander LOWE [facility] [id number] Univers 14:30:00 14:30:00 ALEXANDRIA itimani [facility] 2021-10-26 2021-10-26 Outpatient Alexander LOWE [facility] [id number] Univers 14:30:00 14:30:00 [facility] 2021-10-26 2021-10-26 Orders Doctor ZO 1.2.840.114 [id number] Univers 00:00:00 00:00:00 Only Unassigned, LILLY 350.1.13.10 ity of [place] [facility] 4.2.7.2.686 Malachi as [id number] [address] 2021-10-21 2021-10-21 Outpatient Alexander PENA [facility] [id number] Univers 14:30:00 15:00:40 [facility] 2021-10-21 2021-10-21 Office Becky [facility] 1.2.259.585 [id number] Univers 14:30:00 15:00:40 Visit Kehinde OSPINA 350.1.13.10 i ty [facility] 4.2.7.2.[place] [id number] Nc dical [address] 2021-10-21 2021-10-21 Outpatient Alexander PENA [facility] [id number] Univers 14:30:00 15:00:40 KEHINDE banda [facility] 2021-10-21 2021-10-21 Outpatient Alexander PENA [facility] [id number] Univers 14:30:00 14:30:00 KEHINDE [facility] 2021-10-21 2021-10-21 Outpatient Alexander PENA [facility] [id number] Univers 14:30:00 14:30:00 KEHINDE [facility] 2021-10-21 2021-10-21 Outpatient R BECKY [facility] [id number] Univers 14:30:00 14:30:00 KEHINDE imani [facility] 2021-10-21 2021-10-21 Outpatient R BECKY [facility] [id number] Univers 14:30:00 14:30:00 KEHINDE imani [facility] 2021-10-02 2021-10-02 [facility] 1.2.840.114 [id number] Univers 07:47:29 23:59:00 Encounter Michael OSPINA 350.1.13.10 ity [facility] 4.2.7.2.686 [place] [id number] [address] 2021-10-02 2021-10-02 Outpatient R RAMIRO [facility] [id number] Univers 07:47:28 23:59:00 MICHAEL imani [facility] 2021-10-02 2021-10-02 Outpatient R RAMIRO [facility] [id number] Univers 00:00:00 00:00:00 MICHAEL imani [facility] 2021-09-28 2021-09-28 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 Juliano, Adc Lab Main [facility] 1.2.8 40.114 [id number] Univers 10:30:00 10:45:00 Visit [facility] Brewer [facility].1.13.10 [facility] 4.2.7.2.686 [facility] [id number] Nc dic[address] 2021-09-28 2021-09-28 Outpatient R RAMIRO [facility] [id number] Univers 10:30:00 10:30:00 MICHAEL imani [facility] 2021-09-28 2021-09-28 Outpatient R RAMIRO [facility] [id number] Univers 10:30:00 10:30:00 MICHAEL imani [facility] 2021-09-28 2021-09-28 Outpatient R JANETTE [facility] [id number] Univers 08:30:00 08:30:00 LALO [facility] 2021-09-28 2021-09-28 Orders Doctor ZO 1.2.840.114 [id number] Univers 00:00:00 00:00:00 Only Unassigned, LILLY 350.1.13.10 ity of [place] [facility] 4.2.7.2.686 Malachi as [id number] [address] 2021-09-17 2021-09-17 Outpatient R [facility] [id number] Univers 10:40:00 11:17:37 MICHAEL banda [facility] 2021-09-17 2021-09-17 Office [facility] 1.2.840.114 [id number] Univers 10:40:00 11:17:37 Visit Michael OSPINA 350.1.13.10 i ty of [place] 4.2.7.2.[place] [id number] [address] 2021-09-17 2021-09-17 Office [facility] 1.2.840.114 [id number] Univers 10:00:00 10:40:00 Visit Michael OSPINA 350.1.13.10 i ty of [place] 4.2.7.2.[place] [id number] [address] 2021-09-17 2021-09-17 Out[facility] [id number] Univers 10:00:00 10:00:00 MICHAEL veronika [facility] 2021-09-17 2021-09-17 Outpatient [facility] [id number] Univers 10:00:00 10:00:00 MICHAEL veronika [facility] 2021-08-28 2021-08-28 Brennan [facility] 1.2.840.114 [id number] Univers 00:00:00 00:00:00 Wondiful A HEALTH 350.1.13.10 ity of [place] 4.2.7.2.686 Malachi as SHAI?BLEA [phone] [address] OFFICE [facility] 2021-08-27 2021-08-27 Brennan [facility] 1.2.840.114 [id number] Univers 00:00:00 00:00:00 Wondiful A HEALTH 350.1.13.10 ity of [place] 4.2.7.2.686 Malachi as SHAI?BLEA [id number] [facility] WILLIAM 044 [facility] OFFICE [facility] 2021-08-25 2021-08-25 Telephone [facility] 1.2.840.114 [id number] Univers 00:00:00 00:00:00 Kehinde OSPINA 350.1.13.10 i ty of [facility] 4.2.7.2.[place] [id number] Nc dical NAL 134 [facility] 2021-08-19 2021-08-19 Refamador [facility]manGALLUP [facility] 1.2.840.114 [id number] Univers 00:00:00 00:00:00 Wondiful A HEALTH 350.1.13.10 ity [facility] 4.2.7.2.686 Malachi as SHAI?BLEA [phone] Nc margret WILLIAM 044 [facility] 2021-08-10 2021-08-10 [facility] 1.2.840.114 [id number] Univers 00:00:00 00:00:00 Amy HEALTH 350.1.13.10 i ty of [place] 4.2.7.2.686 Malachi as SHAI?BLEA [id number] [facility] NATALIIA 370 [facility] 2021-08-03 2021-08-03 Outpatient R [facility]ER[facility] [id number] Univers 09:20:00 09:20:00 AMY ity o f [facility] 2021-07-24 2021-07-24 Refill Alvertoclaxton-[facility]burn [facility] center[facility]inaG[facility] 1.2.414.393 [id number] Univers 00:00:00 00:00:00 Kehinde OSPINA 350.1.13.10 i ty of [facility] 4.2.7.2.[place] [id number] Nc dicnc NAL 134 [facility] 2021-07-01 2021-07-01 Refamador [facility]manG[facility] 1.2.840.114 [id number] Univers 00:00:00 00:00:00 Wondiful A HEALTH 350.1.13.10 ity of [place] 4.2.7.2.686 Malachi as PROFESSIO [id number] [address] OFFICE [facility] 2021-05-30 2021-05-30 Brennan Chick[facility]awG[facility] 1.2.840.114 [id number] Univers 00:00:00 00:00:00 Wondiful A HEALTH 350.1.13.10 ity of [place] 4.2.7.2.686 Malachi as PROFESSIO [id number] [address] OFFICE [facility] 2021-05-28 2021-05-28 [facility]aw[facility] 1.2.840.114 [id number] Univers 00:00:00 00:00:00 Wondiful A HEALTH 350.1.13.10 ity of [place] 4.2.7.2.686 Malachi as PROFESSIO [id number] [address] OFFICE [facility] 2021-05-18 2021-05-18 Brennan [facility] 1.2.840.114 [id number] Univers 00:00:00 00:00:00 Wondiful A HEALTH 350.1.13.10 ity of [place] 4.2.7.2.686 Malachi as PROFESSIO [id number] [address] OFFICE [facility] 2021-04-30 2021-04-30 Jovany [facility] 1.2.840.114 [id number] Univers 00:00:00 00:00:00 Management Wondiful A HEALTH 350.1.13.10 ity of [place] 4.2.7.2.686 Malachi as SHAI?BLEA [phone] [address] OFFICE [facility] 2021-04-27 2021-04-27 Outpatient R BECKY [facility] [id number] Univers 09:30:00 10:19:12 KEHINDE itimani of [facility] 2021-04-27 2021-04-27 Office Becky [facility] [id number] Univers 09:21:25 10:19:12 Visit Kehinde OSPINA 350.1.13.10 i ty of [place]2.[place].2.[place] [phone] [place] dical NAL 134 [facility] 2021-04-22 2021-04-22 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 Henao [facility] Main [facility] [id number] Univers 08:01:15 08:16:15 Visit Thien Chatman [facility] 350.1.13. 10 [place] [phone] [place] dical NAL 353 [facility] 2021-04-22 2021-04-22 [facility] [id number] Univers 08:15:00 08:15:00 WONDIFUL ity o f [facility] 2021-04-07 2021-04-[address] [facility] [id number] [id number] Univers 00:00:00 00:00:00 Amy HEALTH 350.1.13.10 i ty of [place] 4.2.7.2.686 Malachi as SHAI?BLEA [phone] [place] [facility] 044 [facility] OFFICE [facility] 2021-04-03 2021-04-[address] [facility] 1.2.840.114 [id number] Univers 09:12:20 09:32:20 Care Amy HEALTH [id number] i ty of [place] 4.2.7.2.686 Malachi as SHAI?BLEA [phone] Nc dical KNEY 370 [facility] OFFICE [facility] 2021-04-03 2021-04-03 Outpatient R [facility] [id number] Univers 09:20:00 09:20:00 AMY ity o f [facility] 2021-03-31 2021-03-31 [facility]ill [facility] 1.2.840.114 [id number] Univers 00:00:00 00:00:00 Wondiful A HEALTH 350.1.13.10 ity of [place] 4.2.7.2.686 Malachi as SHAI?BLEA [phone] Nc dical KNEY 044 [facility] OFFICE [facility] 2021-03-19 2021-03-19 Office [facility] 1.2.840.114 [id number] Univers 08:47:06 09:26:20 Visit Wondiful A HEALTH 350.1.13.10 [facility] 4.2.7.2.686 Malachi as SHAI?BLEA [phone] [facility] [address] MEDICAL OFFICE [facility] 2021-03-19 2021-03-19 Outpatient R COMPA [facility] [id number] Univers 08:45:00 09:26:20 WONDIFUL ity o f [facility] 2021-03-19 2021-03-19 [facility] [id number] Univers 08:45:00 08:45:00 WONDIFUL ity o f [facility] 2021-03-15 2021-03-15 [facility]gent [facility] 1.2.840.114 [id number] Univers 15:40:55 16:17:23 Care Candice [facility] [id number] it y of [place] 4.2.7.2.686 Malachi as Shai?Blea [phone] [facility] [address] Medical Office [facility] 2021-03-15 2021-03-15 Outpatient R KULDIP [facility] [id number] Univers 15:40:00 15:40:00 CANDICE ity of [facility] 2021-03-15 2021-03-15 Orders Doctor PATHAK 1.2.840.114 [id number] Univers 00:00:00 00:00:00 Only Unassigned, LILLY 350.1.13.10 ity of [facility] 4.2.7.2.686 Malachi as [phone] [address] 2021-02-26 2021-02-26 Telephone [facility] 1.2.840.114 [id number] Univers 00:00:00 00:00:00 Wondiful A Health 350.1.13.10 ity of [place] 4.2.7.2.686 Malachi as Shai?Blea [phone] [address] Medical Office [facility] 2021-02-19 2021-02-19 Imm/Inj Nurse, Adc Pob Immunization [facility] 1.2.840.114 [id number] Univers 10:30:27 10:35:04 Visit Lalo Savage 350.1.13 .10 ity [facility] [place]2.7.[place] [phone] [place] dical nal 421 [facility] 2021-02-19 2021-02-19 Outpatient R JANETTE [facility] [id number] Univers 10:30:00 10:30:00 LALO [facility] 2021-01-24 2021-01-24 [facility] [id number] Univers 00:00:00 00:00:00 Kehinde Ospina 350.1.13.10 i ty [facility] [place] [phone] N[place] dical nal 134 [facility] 2021-01-13 2021-01-13 Outpatient R COMPA [facility] [id number] Univers 00:00:00 00:00:00 WONDIFUL ity o f [facility] 2020-12-16 2020-12-16 Outpatient R COMPA [facility] [id number] Univers 14:00:00 14:00:00 WONDIFUL ity o f [facility] 2020-11-25 2020-11-25 Outpatient R INEZ [facility] [id number] Univers 08:00:00 08:00:00 CASEY [facility] 2020-11-08 2020-11-08 Outpatient Alexander DÍAZ [facility] [id number] Univers 12:20:00 12:20:00 CHERELLE [facility] 2020-09-22 2020-09-22 Outpatient R BECKY [facility] [id number] Univers 14:30:00 14:30:00 KEHINDE [facility] 2020-09-11 2020-09-11 Outpatient R JAZMIN [facility] [id number] Univers 11:00:00 11:00:00 TRAVON [facility] 2020-08-22 2020-08-22 Telephone [facility] 1.2.840.114 [id number] 00:00:00 00:00:00 Wondiful A Health 350.1.13.10 [place] 4.2.7.2.686 Professio [phone] [facility] [address] 2020-08-17 2020-08-17 Refamador [facility] 1.2.840.114 [id number] 00:00:00 00:00:00 Wondiful A Health 350.1.13.10 [place] 4.2.7.2.686 Professio [phone] [facility] 044 [address] 2020-07-31 2020-07-31 Ella [facility] 1.2.840.114 [id number] 00:00:00 00:00:00 Wondiful A Health 350.1.13.10 [place] 4.2.7.2.686 Professio [phone] [place] [address] [address] 2020-07-22 2020-07-22 Case [facility] 1.2.840.114 [id number] 00:00:00 00:00:00 Management Wondiful A Health 350.1.13.10 [place] 4.2.7.2.686 Professio [phone] [place] [address] [address] 2020-07-14 2020-07-14 Outpatient Alexander CHATMAN [facility] [id number] [facility] 10:00:00 10:00:00 WONDIFUL ity o f [facility] 2020-07-14 2020-07-14 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 Henao [facility] 1.2.840.114 [id number] 09:23:27 09:38:27 Visit Lab Main [place] 350.1.13.10 [place] 4.2.7.2.686 Professio [phone] [address] 2020-07-03 2020-07-03 Outpatient Alexander MCMAHON [facility] [id number] Univers 13:30:00 13:30:00 [facility] 2020-06-12 2020-06-12 Outpatient Alexander MCMAHON [facility] [id number] [facility] 16:40:00 16:40:00 [facility] 2020-06-10 2020-06-10 Office [facility] 1.2.840.114 [id number] 07:57:28 08:37:01 Visit [facility] 350.1.13.10 [place] 4.2.7.2.686 Buzz [phone] nal [address] 2020-06-10 2020-06-10 Outpatient [facility] [id number] Univers 08:00:00 08:00:00 WONDIFUL ity o f [facility] 2020-05-27 2020-05-27 Outpatient Alexander [facility] [id number] Univers 09:15:00 09:15:00 BILAL [facility]UT [facility] 2020-04-22 2020-04-22 [facility] [id number] Univers 08:00:00 08:00:00 BILAL [facility]UT [facility] 2020-04-16 2020-04-16 Outpatient R SAVANNAH [facility] [id number] Univers 17:15:00 17:15:00 ATTENDING itUT [facility] 2020-03-15 2020-03-15 Out[facility] [id number] Univers 14:20:00 14:20:00 DILLON [facility] 2020-03-04 2020-03-04 [facility] [id number] Univers 08:00:00 08:00:00 BILAL [facility]UT [facility] 2020-02-27 2020-02-27 Outpatient R [facility] [id number] Univers 14:30:00 14:30:00 LATESHA [facility]UT [facility] 2020-02-25 2020-02-25 Out[facility] [id number] Univers 08:10:00 08:10:00 WONDIFUL ity o f [facility] 2020-02-22 2020-02-22 Outpatient R COMPA [facility] [id number] Univers 08:30:00 08:30:00 WONDIFUL ity o f [facility] 2020-02-11 2020-02-11 Outpatient R [facility] [id number] Univers 08:45:00 08:45:00 ity of [facility] 2020-01-31 2020-01-31 Outpatient R INEZ [facility] [id number] Univers 08:30:00 08:30:00 BILAL ity of [facility] 2020-01-31 2020-01-31 Outpatient R INEZ [facility] [id number] Univers 08:00:00 08:00:00 BILAL ity of [facility] 2020-01-25 2020-01-25 Outpatient R [facility] [id number] Univers 16:40:00 16:40:00 ity of [facility] 2020-01-17 2020-01-17 Outpatient R INEZ [facility] [id number] Univers 09:00:00 09:00:00 BILAL ity of [facility] 2020-01-15 2020-01-15 Outpatient R INEZ [facility] [id number] Univers 08:30:00 08:30:00 BILAL ity of [facility] 2020-01-11 2020-01-11 Outpatient R COMPA [facility] [id number] Univers 09:30:00 09:30:00 WONDIFUL ity o f [facility] 2020-01-10 2020-01-10 Outpatient R INEZ [facility] [id number] Univers 13:00:00 13:00:00 BILAL ity of [facility] 2019-12-31 2019-12-31 Outpatient R BRENT [facility] [id number] Univers 14:15:00 14:15:00 JAMISON ity of [facility] 2019-12-24 2019-12-24 Outpatient R [facility] [id number] Univers 09:00:00 09:00:00 ity of [facility] 2019-12-14 2019-12-14 Outpatient R COMPA, [facility] [id number] Univers 08:30:00 08:30:00 WONDIFUL ity o f [facility] 2019-12-11 2019-12-11 Outpatient R COMPA, [facility] [id number] Univers 16:00:00 16:00:00 WONDIFUL ity o f [facility] 2019-11-21 2019-11-21 Outpatient R CARLYCHRISISHAN [facility] [id number] Univers 13:45:00 13:45:00 SNODRA Kate ity o f [facility] 2019-10-02 2019-10-02 Outpatient Alexander CHATMAN [facility] [id number] Univers 08:00:00 08:00:00 WONDIFUL ity o f [facility] 2019-09-11 2019-09-11 Outpatient Alexander CHATMAN [facility] [id number] Univers 15:00:00 15:00:00 WONDIFUL ity o f [facility] 2019-07-02 2019-07-02 Outpatient Alexander CHATMAN [facility] [id number] Univers 14:00:00 14:22:41 WONDIFUL ity o f [facility] 2018-09-01 2018-09-01 [facility] [id number] [place] 09:30:00 09:30:00 t; [facility] 2018-08-25 2018-08-25 Juno FITZGERALD [facility] [id number] [place] 09:15:00 09:15:00 t; GALINDO FITZGERALD M.D. Physici EDDIE, ans M.D. 2018-03-24 2018-03-24 JEANNE [facility] [id number] [place] 09:00:00 09:00:00 t; GALINDO FITZGERALD M.D. at [facility] M.D. 2016-05-31 2016-05-31 Juno WILLIS [facility] [id number] [place] 11:00:00 11:00:00 t; DALE WILLIS Phy sici MICHELLE, M.D. ans M.D. Results Test Description Test Time Test Comments Results Result Comments Source POCT GLUCOSE (AUTOMATED) 2022-03-11 12:49:19 Test Item Value Reference Range Interpretation Comme nts POCT GLU (test code = 0794949684) 90 mg/dL 70-110 Lab Interpretation (test code = 08921-2) [facility]2022-[facility]-11 12:49:19 Test Item Value Reference Range Interpretation Comments POCT GLU (test code = 0930152865) 90 mg/dL 70-110 Lab Interpretation (test code = Normal 50224-0) [facility] [id number] 13:56:00 Test Item Value Reference Range Interpretation [...] code = LEUU) DRUGS OF ABUSE SCREEN [id number] 13:56:00 Test Item Value Reference Range Interpretation [...] NEGATIVE SCcutoff <300 NG/ML [place]) RULE OUT [place] [id number] 10:28:00 Test Item Value Reference Range Interpretation [...] results may stephanie yby method. BASIC METABOLIC [id number] 10:24:00 Test Item Value Reference Range Interpretation [...] CA) 9.0 MG/DL 8.5-10.1 N HEPATIC FUNCTION [id number] 10:24:00 Test Item Value Reference Range Interpretation [...] 78 Unit/L 45-117 N code = ALKP) [id number] 10:24:00 Test Item Value Reference Range Interpretation Comments LIPASE (test code = LIP) 93 Unit/L 114-286 L URINALYSIS [id number] 10:11:00 Test Item Value Reference Range Interpretation [...] code = LEUU) DRUGS OF ABUSE SCREEN [id number] 10:11:00 Test Item Value Reference Range Interpretation [...] = SCcutoff <300 NG/ML [place]) CBC W/AUTO [id number] 10:07:00 Test Item Value Reference Range Interpretation [...] DIFF/SCN CRITERIA MDIFF) - XR CHEST 1 [id number] 09:28:00 Name: NINA [facility] : 1955 Age/S: 63 / F [address] [facility] [place] [facility] [place] Unit #: [id number] Loc: [place] [address] Phys: Nash Osei MD Acct: [id number] Dis Date: Status: REG ER PHONE #: [phone] Exam Date: 07/12/2018919 FAX #: Reason: cp EXAMS: CPT: [id number] XR CHEST1 V 15685 Fluoro Time: DAP (Gy m2): Air Kerma [...] Hospital : 1955 Age/S: 63 / F [address] [place] [facility] [place] Unit #: [id number] Loc: [place] [address] Phys: Nash Osei MD Acct: [id number] Dis Date: Status: REG ER PHONE #: [phone] Exam Date: 07/12/2018919 FAX #: Reason: cp EXAMS: CPT: [id number] XR CHEST 1 V 70762 Fluoro Time: DAP (Gy m2): Air Kerma (mGy): (Continued) Technologist: Breanna Kapadia, RT(R); Aleks Yan RT(R)(MR) Trnscb Date/Time: 07/12/2018 (927) [email or web address] Orig Print D/T: S: 07/12/2018 (930) PAGE 2 Signed Report[U] XRAY KNEE 4 OR MORE VWS LEFT [id number] 2018-03-24 09:05:00Images acquired, not reported on this accession number.[facility]
--- NOTE | 2022-04-18 14:05 | RAD REPORT ---
EXAM DESCRIPTION: RAD - Abdomen 1 View (KUB) - 04/18/2022 1:38 pm CLINICAL HISTORY: Abdomen pain FINDINGS: The bowel gas pattern is unremarkable. Moderate amount of stool is present throughout the colon. Surgical clips right upper quadrant No significant abnormal calcification is displayed
[2022-04-18] MEDS ORDERED: LACTULOSE 20 GM/30 ML UCUP ONE (15:30)
--- NOTE | 2022-04-18 16:00 | EDPHYS ---
Physician Documentation [facility] Name: Nanci Barros Age: 66 yrs Sex: Female : 1955 Arrival Date: 04/18/2022 Time: 13:04 Bed 15 Private MD: ED Physician Melecio Jang HPI: 04/18 13:24 This 66 yrs old Black Female presents to ER via Ambulatory with complaints of jmm Constipation. 13:24 Onset: The symptoms/episode began/occurred gradually. This is a 66 year old female with jmm a history of dm, htn, psoriasis that presents to the ED with complaints of abdominal discomfort, constipation. Patient has taken miralax and ducolax with no relief. Denies vomiting, denies fever. . Historical: - Allergies: 13:18 PENICILLINS; kb3 - Home Meds: 13:18 amlodipine 5 mg tab 1 tab once daily [Active]; losartan 100 mg Oral tab once daily kb3 [Active]; telmisartan-hydrochlorothiazid 80-25 mg Oral tab 0.5 tab once daily [Active]; 13:19 Ozempic 1 mg weekly on Tuesday [Active]; kb3 - PMHx: 13:18 acid reflux; Diabetes - NIDDM; Hypertension; psoriasis; kb3 - Immunization history:: Adult Immunizations up to date, Client reports receiving the 2nd dose of the Covid vaccine, Last tetanus immunization: up to date. - Social history:: Smoking status: Patient denies any tobacco usage or history of. ROS: 13:24 Constitutional: Negative for fever, chills, and weight loss, Cardiovascular: Negative jmm for chest pain, palpitations, and edema, Respiratory: Negative for shortness of breath, cough, wheezing, and pleuritic chest pain. 13:24 Abdomen/GI: Positive for abdominal pain, constipation. 13:24 All other systems are negative. Exam: 13:24 Constitutional: This is a well developed, well nourished patient who is awake, alert, jmm and in no acute distress. Head/Face: atraumatic. Eyes: EOMI, no conjunctival erythema appreciated ENT: Moist Mucus Membranes Neck: Trachea midline, Supple Chest/axilla: Normal chest wall appearance and motion. Cardiovascular: Regular rate and rhythm. No edema appreciated Respiratory: Normal respirations, no respiratory distress appreciated 13:24 Back: Normal ROM Skin: General appearance color normal MS/ Extremity: Moves all extremities, no obvious deformities appreciated, no edema noted to the lower extremities Neuro: Awake and alert Psych: Behavior is normal, Mood is normal, Patient is cooperative and pleasant 13:24 Abdomen/GI: Inspection: obese Palpation: soft, nontender, in all quadrants. Vital Signs: 13:16 BP 149 / 99; Pulse 95; Resp 20; Temp 98.1; Pulse Ox 100% ; Weight 113.4 kg; Height 5 kb3 ft. 6 in. (167.64 cm); Pain 8/10; 14:28 BP 133 / 60; Pulse 96; Resp 16; Pulse Ox 98% on R/A; tp1 15:26 BP 122 / 63; Pulse 91; Resp 16; Pulse Ox 100% on R/A; tp1 13:16 Body Mass Index 40.35 (113.40 kg, 167.64 cm) kb3 MDM: 13:24 Patient medically screened. [facility] 15:58 Data reviewed: vital signs, nurses notes. Counseling: I had a detailed discussion with [facility] the patient and/or guardian regarding: the historical points, exam findings, and any diagnostic results supporting the discharge/admit diagnosis, radiology results, the need for outpatient follow up, to return to the emergency department if symptoms worsen or persist or if there are any questions or concerns that arise at home. 04/18 13:24 Order name: Abdomen 1 View (KUB) XRAY; Complete Time: 14:07 [facility] 04/18 13:30 [facility] Order: apple juice, prune juice, 1 pad of melted butter; Complete [facility] Time: 14:27 Administered Medications: 15:25 Not Given (Physician Discretion): Magnesium Citrate Liquid 300 ml PO once tp1 15:31 Drug: Lactulose 20 grams Volume: 30 ml; Route: PO; tp1 16:17 Follow up: Response: No change in condition tp1 Disposition: 17:13 Co-signature as Attending Physician, Melecio Jang DO I was immediately available on-site ms3 in the Emergency Department for consultation in the care of the patient. Disposition Summary: 04/18/22 15:59 Discharge Ordered Location: Home [facility] Condition: Stable [facility] Diagnosis - Constipation, unspecified [facility] Followup: [facility] - With: Private Physician - When: 2 - 3 days - Reason: Recheck today's complaints, Continuance of care, Re-evaluation by your physician Discharge Instructions: - Discharge Summary Sheet jmm - Constipation, Adult jmmika Forms: - Medication Reconciliation Form jmmika - Thank You Letter collin - Antibiotic Education collin - Prescription Opioid Use ocllin Signatures: Dispatcher [employer] EDShaka Du PA PA jmm Melecio Jang DO DO ms3 Ida Santoyo RN RN tp1 Taty Walker RN RN kb3 Corrections: (The following items were deleted from the chart) 13:20 13:18 Home Meds: metformin 500 mg Oral tab daily; kb3 kb3 13:20 13:18 Home Meds: nitrofurantoin macrocrystal 100 mg Oral cap; kb3 kb3 13:20 13:19 Home Meds: Ozempic 1 1 mg weekly on Tuesday; kb3 kb3
--- NOTE | 2022-04-18 16:00 | ER ---
Nurse's Notes [facility] Name: Nanci Barros Age: 66 yrs Sex: Female : 1955 Arrival Date: 04/18/2022 Time: 13:04 Bed 15 Private MD: Diagnosis: Constipation, unspecified Presentation: 04/18 13:16 Chief complaint: Patient states: constipation x4 days with associated nausea. kb3 Coronavirus screen: Vaccine status: Patient reports receiving the 2nd dose of the covid vaccine. Client denies travel out of the [place] in the last 14 days. Ebola Screen: Patient negative for fever greater than or equal to 101.5 degrees Fahrenheit, and additional compatible Ebola Virus Disease symptoms Patient denies exposure to infectious person. Patient denies travel to an Ebola-affected area in the 21 days before illness onset. Initial Sepsis Screen: Does the patient meet any 2 criteria? No. Patient's initial sepsis screen is negative. Does the patient have a suspected source of infection? No. Patient's initial sepsis screen is negative. Risk Assessment: Do you want to hurt yourself or someone else? Patient reports no desire to harm self or others. Onset of symptoms was April 14, 2022. 13:16 Method Of Arrival: Ambulatory kb3 13:16 Acuity: GET 3 kb3 Triage Assessment: 13:19 General: Appears in no apparent distress. uncomfortable, Behavior is calm, cooperative. kb3 Pain: Complains of pain in abdomen Pain does not radiate. Pain currently is 8 out of 10 on a pain scale. Quality of pain is described as crampy, pressure. GI: Reports lower abdominal pain, upper abdominal pain, constipation, nausea. Historical: - Allergies: 13:18 PENICILLINS; kb3 - Home Meds: 13:18 amlodipine 5 mg tab 1 tab once daily [Active]; losartan 100 mg Oral tab once daily kb3 [Active]; telmisartan-hydrochlorothiazid 80-25 mg Oral tab 0.5 tab once daily [Active]; 13:19 Ozempic 1 mg weekly on Tuesday [Active]; kb3 - PMHx: 13:18 acid reflux; Diabetes - NIDDM; Hypertension; psoriasis; kb3 - Immunization history:: Adult Immunizations up to date, Client reports receiving the 2nd dose of the Covid vaccine, Last tetanus immunization: up to date. - Social history:: Smoking status: Patient denies any tobacco usage or history of. Screenin:31 Abuse screen: Denies threats or abuse. Denies injuries from another. Nutritional tp1 screening: No deficits noted. Tuberculosis screening: No symptoms or risk factors identified. Fall Risk None identified. Assessment: 13:30 General: Appears in no apparent distress. comfortable, Behavior is calm, cooperative. tp1 Pain: Complains of pain in abdomen Pain does not radiate. Pain currently is 7 out of 10 on a pain scale. Quality of pain is described as crampy, pressure, Is continuous. Neuro: Level of Consciousness is awake, alert, obeys commands, Oriented to person, place, time, situation. Cardiovascular: Patient's skin is warm and dry. Respiratory: Airway is patent Respiratory effort is even, unlabored. GI: Abdomen is obese, Abd is soft and non tender Reports nausea, Patient currently denies diarrhea, vomiting. : No signs and/or symptoms were reported regarding the genitourinary system. EENT: No signs and/or symptoms were reported regarding the EENT system. Derm: Skin is pink, warm \T\ dry. Musculoskeletal: Circulation, motion, and sensation intact. 14:27 Reassessment: Patient appears in no apparent distress at this time. No changes from tp1 previously documented assessment. Patient and/or family updated on plan of care and expected duration. Pain level reassessed. Patient is alert, oriented x 3, equal unlabored respirations, skin warm/dry/pink. 15:22 Reassessment: Patient appears in no apparent distress at this time. No changes from tp1 previously documented assessment. Patient is alert, oriented x 3, equal unlabored respirations, skin warm/dry/pink. PT has not had BM, provider notified. 15:23 Reassessment: received VO from TARIQ Bryant to administer Lactulose 30 mL PO X1. tp1 Vital Signs: 13:16 BP 149 / 99; Pulse 95; Resp 20; Temp 98.1; Pulse Ox 100% ; Weight 113.4 kg; Height 5 kb3 ft. 6 in. (167.64 cm); Pain 8/10; 14:28 BP 133 / 60; Pulse 96; Resp 16; Pulse Ox 98% on R/A; tp1 15:26 BP 122 / 63; Pulse 91; Resp 16; Pulse Ox 100% on R/A; tp1 13:16 Body Mass Index 40.35 (113.40 kg, 167.64 cm) kb3 ED Course: 13:04 Patient arrived in ED. jl7 13:05 Shaka Bryant PA is PHCP. [facility] 13:05 Melecio Jang DO is Attending Physician. jmm 13:18 Triage completed. kb3 13:19 Arm band placed on left wrist. kb3 13:23 Ida Santoyo, RN is Primary Nurse. tp1 13:31 Patient has correct armband on for positive identification. Bed in low position. Call tp1 light in reach. Pulse ox on. NIBP on. 13:31 No provider procedures requiring assistance completed. tp1 13:40 Abdomen 1 View (KUB) XRAY In Process Unspecified. EDMS 16:16 Patient did not have IV access during this emergency room visit. tp1 Administered Medications: 15:25 Not Given (Physician Discretion): Magnesium Citrate Liquid 300 ml PO once tp1 15:31 Drug: Lactulose 20 grams Volume: 30 ml; Route: PO; tp1 16:17 Follow up: Response: No change in condition tp1 Medication: 13:32 VIS not applicable for this client. tp1 Outcome: 15:59 Discharge ordered by MD. [facility] 16:16 Discharged to home ambulatory. tp1 16:16 Condition: good 16:16 Discharge instructions given to patient, Instructed on discharge instructions, follow up and referral plans. Demonstrated understanding of instructions, follow-up care. 16:16 Patient left the ED. tp1 Signatures: Dispatcher [employer] EDKY Shaka Bryant PA PA [facility] Aditi Lai RN RN [id number] Ida Santoyo, RN RN tp1 Taty Walker, RN RN kb3 Corrections: (The following items were deleted from the chart) 13:20 13:18 Home Meds: metformin 500 mg Oral tab daily; kb3 kb3 13:20 13:18 Home Meds: nitrofurantoin macrocrystal 100 mg Oral cap; kb3 kb3 13:20 13:19 Home Meds: Ozempic 1 1 mg weekly on Tuesday; kb3 kb3
[2022-04-18 16:21] VITALS: TEMP 98.1
[2022-04-18 16:23] VITALS: BP 122/63; O2SAT 100
== END 2022-04-18 16:16 | disposition home or self-care (01) ==
LOC: ER 13:03
DX: K59.00 Constipation, unspecified (principal); I10 Essential (primary) hypertension; Z88.0 Allergy status to penicillin
CPT/HCPCS: 74018; 99283

== ENCOUNTER 2023-02-09 11:00 | Emergency (ER) | payer OTHER ==
--- OUTSIDE RECORDS SUMMARY | 2023-02-09 11:14 | XMS REPORT | Continuity of Care Document ---
:1955 Author Organization [facility] t Address [address] [place] [address] [address] [place] [address] Care Team Providers Name Role Phone Thien Chatman MD Primary Care Physician ALEXANDRIA LOWE Attending Clinician Unavailable ALEXANDRIA LOWE Attending Clinician Unavailable CASEY WILEY Attending Clinician Unavailable SONDRA KENNY Attending Clinician Unavailable REESE SOLORIO Attending Clinician Unavailable BRIANNA PEREYRA Attending Clinician Unavailable BRIANNA PEREYRA Attending Clinician Unavailable MICHAEL BREWER Attending Clinician Unavailable Michael Brewer MD Attending Clinician Patricia Avila Attending Clinician Doctor Unassigned, [place] Attending Clinician Unavailable MARYA JEAN Attending Clinician Unavailable Stephon WANG, Marya Attending Clinician Unknown, Attending Attending Clinician Unavailable KEHINDE PENA Attending Clinician Unavailable Justus Fraga Attending Clinician Kehinde Pena PA-C Attending Clinician TANYA BRADSHAW Attending Clinician Unavailable Tanya Bradshaw MD Attending Clinician Mariana Aaron RN Attending Clinician Unavailable 2, [facility] Attending Clinician Unavailable AMY MINER Attending Clinician Unavailable Amy Marin Attending Clinician Pob, [facility] Main Attending Clinician Unavailable Vianey EGAN, Naeem Attending Clinician KRISTIAN UREÑA Attending Clinician Unavailable Harper Bob Attending Clinician Thien Chatman MD Attending Clinician LALO SAVAEG Attending Clinician Unavailable THIEN CHATMAN Attending Clinician Unavailable Candice Baugh Attending Clinician CANDICE CHRISTIANSEN Attending Clinician Unavailable Nurse, [facility] Pob Immunization Attending Clinician Unavailable Lalo Savage DO Attending Clinician CHERELLE DÍAZ Attending Clinician Unavailable TRAVON WU Attending Clinician Unavailable FABIO MCMAHON Attending Clinician Unavailable UNKNOWN, ATTENDING Attending Clinician Unavailable DILLON ALEMAN Attending Clinician Unavailable LATESHA REYNOSO Attending Clinician Unavailable JAMISON KENNEDY Attending Clinician Unavailable GALINDO FITZGERALD M.D. Attending Clinician Unavailable DALE WILLIS M.D. Attending Clinician Unavailable ALEXANDRIA LOWE Admitting Clinician Unavailable CASEY WILEY Admitting Clinician Unavailable SONDRA KENNY Admitting Clinician Unavailable MICHAEL BREWER Admitting Clinician Unavailable Payers Payer Name Policy Type Policy Number Effective Date Expiration Date S [facility] WELLMED [id number] 2020 00:00:00 WELLMED/[employer] [id number] 2019 MEDICARE ADVANTAGE 00:00:00 [place] [id number] 2020 HEALTHCARE/AARP 00:00:00 Problems Condition Condition Condition Status Onset Resolution Last Treating Co mments Source Name Details Category Date Date Treatment Clinician Date Status Status Disease Active [facility] 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-20 He alth left knee left knee 00:00: replacemen replacemen 00 t t Arthritis Arthritis Disease Active [facility] of left of left 01-07 Health knee knee 00:00: 00 Arthritis, Arthritis, Disease Active U nivers multiple multiple 3-07 ity of joint joint 00:00: [place] involvemen involvemen 00 Me dical t t Branch Chronic Chronic Disease Active [facility] pain of pain of 3-07 [place] of both hips both hips 00:[place] Chronic Chronic Disease Active [facility] pain of pain of 3-07 [place] of [place] knees [place] Chronic Chronic Disease Active [facility] bilateral bilateral 3-07 ity of low back low back 00:00: [place] pain pain 00 Medical without without Branch sciatica sciatica Bilateral Bilateral Disease Active Uni vers thigh pain thigh pain 3-07 it y of 00:00: [place] 00 Medical Branch Other skin Other skin Disease Active U nivers changes changes 8 ity of 00:00: [place] 00 Medical Branch Urge Urge Disease Active Univers incontinen incontinen 8 it y of ce ce 00:00: [place] 00 Medical Branch OAB OAB Disease Active Univers (overactiv (overactiv 12-23 it y of e bladder) e bladder) 00:00[place] [facility] [place] Lichen Lichen Disease Active Univers sclerosus sclerosus 8 ity of 00:00: [place] 00 Medical Branch Hyperchole Hyperchole Disease Active U nivers sterolemia sterolemia 4- it y of 00:00: [place] 00 Medical Branch At risk At risk Disease Active Univers for for 4-28 ity of cardiovasc cardiovasc 00:[place] ular event ular event 00 Ia dical Branch Stress Stress Disease Active [facility] incontinen incontinen - it y of ce of ce of 00:00: [place] urine urine 00 Medical Branch Senile Senile Disease Active [facility] [place] [facility] osteoporos osteoporos 09-17 it y of is is 00:00: [place] [facility] Need for Need for Disease [...] al conjugate conjugate vaccine 13 vaccine 13 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 Added automatic ally from request for surgery [id number] Obesity, Obesity, Disease Active Unive rs morbid morbid 7- ity of (more than (more than 00:[place] 100 lbs 100 lbs 00 Medical over ideal over ideal Br anch weight or weight or BMI > 40) BMI > 40) Endometria Endometria Disease Active 2018-05 Overview : Univers l polyp l polyp 0- Formattin ity o f 00:00: g of this [place] 00 note Medical might be Branch different from the original. 05/04/19 - in office hysterosc opy revealed three benign endometri al polyps and an atrophic endometri al lining. Histology revealed benign endometri al polyps and inactive endometri um c/w atrophy. Endometria Endometria Disease Active 2018-05 Overview : [...] fatty 9-30 ity of liver liver 00:00: [place] disease disease 00 Medical without without Branch nonalcohol nonalcohol ic ic steatohepa steatohepa titis titis (CORNELL) (CORNELL) Abdominal Abdominal Disease Active Uni vers pain pain 9-26 ity of 00:00: [place] [facility] Pneumonia Pneumonia Disease Active Uni vers 9-25 ity of 00:00: [place] [facility] LASHAY (acute LASHAY (acute Disease Active U nivers kidney kidney 6- ity of injury) injury) 00:00: [place] [address] Medical Branch BMI BMI Disease Active Univers 38.0-38.9, 38.0-38.9, 6-09 it y of adult adult 00:00: [place] [address] Medical Branch Pancytopen Pancytopen Disease Active U nivers ia ia 5-27 ity of 00:00: [place] [address] Medical Branch ASCUS of ASCUS of Disease Active Overview: [facility] [place] cervix cervix 4-11 Formattin ity of with with 00:00: g of this [place] negative negative 00 note Medica l high [...] Univers lesion lesion 1-24 ity of 00:00: [place] [address] Medical Branch Abnormal Abnormal Disease Active Unive rs EKG EKG 1-12 ity of 00:00: [place] [facility] Vulvar Vulvar Disease Active 2016-05 Univers itching itching 2-22 ity of 00:00: Medical Branch Vulvar Vulvar Disease Active 2016-05 Univers rash rash 07-14 ity of 00:00: Medical Branch Medicare Medicare Disease Active Overview: [facility] [place] annual annual 02-08 Formattin ity of wellness wellness 00:00: g of this [place] visit, visit, 00 note Medical subsequent subsequent might be Branch different from the original. Added automatic ally from request for surgery [id number] Type 2 Type 2 Disease Active Univers diabetes diabetes 02-04 ity of mellitus mellitus 00:00: [place] without without 00 Medical complicati complicati Br anch on, on, without without long-term long-term current current use of use of insulin insulin Essential Essential Disease Active Uni vers hypertensi hypertensi 02-04 it y of on on 00:00: [place] 00 Medical Branch GERD GERD Disease Active Univers (gastroeso (gastroeso 02-04 it y of phageal phageal 00:00: [place] reflux reflux 00 Medical disease) disease) Branch History of History of Problem Resolve [facility] esophageal esophageal d Ph ysici reflux reflux ans No known No known Disease Metho di [...] PENICILL DRUG Active Rash Univers IN INGREDI 9 ity of 00:00: [place] 00 Medical Branch Penicill Propensi Active Shortness of Univers in ty to Breath 9 ity of adverse 00:00: [place] reaction 00 Medical s Branch Penicill DA Active [place] 2013-05 [facility]04 [place] [facility] Penicill Allergy Active Shortness of U T ins to breath 2-04 Health substanc 00:00: e 00 Penicill drug Active UT ins allergy Physici ans Family History Family Member Diagnosis Comments Start Date Stop Date Source Mother Family history of [facility] hypertension Mother Family history of [facility] malignant neoplasm of stomach Mother Family history of [facility] diabetes mellitus Father Family history of [facility] diabetes mellitus Father Family history of [facility] hypertension Sister Family history of [facility] diabetes mellitus Sister Family history of [facility] hypertension Natural Diabetes [facility] brother [facility] Natural father Heart attack [facility] Natural father Heart disease [facility] Natural sister [facility] Unknown Family Family history of Multiple [facility] Member diabetes mellitus Family Members Unknown Family Family history of Multiple [facility] Member hypertension Family Members Social History Social Habit Start Date Stop Date Quantity Comments Source Gender identity [facility] Sexual orientation [facility] Exposure to 2022-10-10 2022-10-20 Not sure [facility] SARS-CoV-2 (event) 00:00:00 10:26:00 Tobacco use and 2022-10-20 2022-10-20 Smokeless [facility] exposure 00:00:00 00:00:00 tobacco non-user History of Social 2019-01-09 2019-01-[address] function 00:00:00 00:00:00 Hospital Alcohol intake 2018-11-27 2018-11-27 Lifetime [facility] 00:00:00 00:00:00 non-drinker Hospital (finding) Sex Ass[birth year] [facility] 00:00:00 00:00:00 Hospital Smoking Status Start Date Stop Date Source Never smoked tobacco [facility] Medications Ordered Filled Start Stop Current Ordering Indication Dosage Frequency Signature Comments Components Source Medication Medication Date Date Medication? Clinician (SIG) Name Name telmisartan Yes [id number] TAKE Un [place] -hydrochlor 02-07 ONE-HALF ity of othiazide 00:00: TABLET BY [place] 40-12.5 mg 00 MOUTH ONCE Med ical per tablet DAILY - Branch DISCARD UNUSED 1/2 TABLET telmisartan Yes [id number] TAKE Un [place] -hydrochlor 01-26 ONE-HALF ity of othiazide 00:00: TABLET BY [place] 40-12.5 mg 00 MOUTH ONCE Med ical per tablet DAILY - Branch DISCARD UNUSED 1/2 TABLET telmisartan Yes [id number] TAKE Un [place] -hydrochlor 01-26 ONE-HALF ity of othiazide 00:00: TABLET BY [place] 40-12.5 mg 00 MOUTH ONCE Med ical per tablet DAILY - Branch DISCARD UNUSED 1/2 TABLET telmisartan 2022- No [id number] TAKE U nivers -hydrochlor 01-26 ONE-HALF ity of othiazide 00:00: 00:00 TABLET BY [place] 40-12.5 mg 00 :00 MOUTH ONCE Med ical per tablet DAILY - Branch DISCARD UNUSED 1/2 TABLET gabapentin Yes [id number] Take 1 UT (Neurontin) 01-07 [id number] capsule Heal th 100 MG 00:00: every capsule 00 morning and 3 capsules every night at bedtime as needed for nerve pain (burning, stinging, shooting) after surgery. gabapentin Yes [id number] Take 1 [facility] (Neurontin) 01-07 [id number] capsule Heal th 100 MG 00:00: every capsule 00 morning and 3 capsules every night at bedtime as needed for nerve pain (burning, stinging, shooting) after surgery. aspirin 81 0 2022- Yes 81mg Q.5D Take 1 UT MG EC 01-07 tablet (81 Health tablet 00:00: 04:59 mg total) 00 :00 by mouth in the morning and 1 tablet (81 mg total) in the evening. To start the morning after surgery to reduce the risk of blood clots.. aspirin 81 0 2022- Yes 81mg Q.5D Take 1 UT MG EC 01-07 tablet (81 Health tablet 00:00: 04:59 mg total) 00 :00 by mouth in the morning and 1 tablet (81 mg total) in the evening. To start the morning after surgery to reduce the risk of blood clots.. pantoprazol 0 Yes [id number] 20mg Take 1 Univers e 20 mg EC 6-22 tablet by ity of tablet 00:00: mouth in [place] [address] the [facility] Branch and 1 tablet in the evening. telmisartan 0 Yes [id number] TAKE Un [place] -hydrochlor 6-22 ONE-HALF ity of othiazide 00:00: TABLET BY [place] 40-12.5 mg 00 MOUTH ONCE Med ical per tablet DAILY - Branch DISCARD UNUSED 1/2 TABLET metformin 2022-0 Yes [id number] 500mg Take 1 Univers ER 500 mg 6-22 tablet by ity o f 24 hr 00:00: mouth [place] tablet 00 daily with Medical breakfast. Branch pantoprazol 2022-0 Yes [id number] 20mg Take 1 Univers e 20 mg EC 6-22 tablet by ity of tablet 00:00: mouth in [place] 00 the Medical morning Branch and 1 tablet in the evening. telmisartan 2022-0 Yes [id number] TAKE Un [place] -hydrochlor 6-22 ONE-HALF ity of othiazide 00:00: TABLET BY [place] 40-12.5 mg 00 MOUTH ONCE Med ical per tablet DAILY - Branch DISCARD UNUSED 1/2 TABLET metformin 2022-0 Yes [id number] 500mg Take 1 Univers ER 500 mg 6-22 tablet by ity o f 24 hr 00:00: mouth [place] tablet 00 daily with Medical breakfast. Branch pantoprazol 2022-0 Yes [id number] 20mg Take 1 Univers e 20 mg EC 6-22 tablet by ity of tablet 00:00: mouth in [place] 00 the Medical morning Branch and 1 tablet in the evening. telmisartan 2022-0 Yes [id number] TAKE Un [place] -hydrochlor 6-22 ONE-HALF ity of othiazide 00:00: TABLET BY [place] 40-12.5 mg 00 MOUTH ONCE Med ical per tablet DAILY - Branch DISCARD UNUSED 1/2 TABLET metformin 2022-0 Yes [id number] 500mg Take 1 Univers ER 500 mg 6-22 tablet by ity o f 24 hr 00:00: mouth [place] tablet 00 daily with Medical breakfast. Branch pantoprazol 2022-0 Yes [id number] 20mg Take 1 Univers e 20 mg EC 6-22 tablet by ity of tablet 00:00: mouth in [place] 00 the Medical morning Branch and 1 tablet in the evening. telmisartan 2022-0 Yes [id number] TAKE Un [place] -hydrochlor 6-22 ONE-HALF ity of othiazide 00:00: TABLET BY [place] 40-12.5 mg 00 MOUTH ONCE Med ical per tablet DAILY - Branch DISCARD UNUSED 1/2 TABLET metformin 2022-0 Yes [id number] 500mg Take 1 Univers ER 500 mg 6-22 tablet by ity o f 24 hr 00:00: mouth [place] tablet 00 daily with Medical breakfast. Branch pantoprazol 2022-0 Yes [id number] 20mg Take 1 Univers e 20 mg EC 6-22 tablet by ity of tablet 00:00: mouth in [place] 00 the Medical morning Branch and 1 tablet in the evening. telmisartan 0 Yes [id number] TAKE Un [place] -hydrochlor 6-22 ONE-HALF ity of othiazide 00:00: TABLET BY [place] 40-12.5 mg 00 MOUTH ONCE Med ical per tablet DAILY - Branch DISCARD UNUSED 1/2 TABLET metformin 2022-0 Yes [id number] 500mg Take 1 Univers ER 500 mg 6-22 tablet by ity o f 24 hr 00:00: mouth [place] tablet 00 daily with Medical breakfast. Branch pantoprazol 2022-0 Yes [id number] 20mg Take 1 Univers e 20 mg EC 6-22 tablet by ity of tablet 00:00: mouth in [place] 00 the Medical morning Branch and 1 tablet in the evening. metformin 2022-0 Yes [id number] 500mg Take 1 Univers ER 500 mg 6-22 tablet by ity o f 24 hr 00:00: mouth [place] tablet 00 daily with Medical breakfast. Branch pantoprazol 2022-0 Yes [id number] 20mg Take 1 Univers e 20 mg EC 6-22 tablet by ity of tablet 00:00: mouth in [place] 00 the Medical morning Branch and 1 tablet in the evening. metformin 2022-0 Yes [id number] 500mg Take 1 Univers ER 500 mg 6-22 tablet by ity o f 24 hr 00:00: mouth [place] tablet 00 daily with Medical breakfast. Branch pantoprazol 2022-0 Yes [id number] 20mg Take 1 Univers e 20 mg EC 6-22 tablet by ity of tablet 00:00: mouth in [place] 00 the Medical morning Branch and 1 tablet in the evening. metformin 2022-0 Yes [id number] 500mg Take 1 Univers ER 500 mg 6-22 tablet by ity o f 24 hr 00:00: mouth [place] tablet 00 daily with Medical breakfast. Branch telmisartan 2022- No [id number] TAKE U nivers -hydrochlor 6-22 -06 ONE-HALF ity of othiazide 00:00: 00:00 [place] 40-12.5 mg 00 :00 MOUTH ONCE Med ical per tablet DAILY - Branch DISCARD UNUSED 1/2 TABLET ROSUVASTATI Yes [id number] 5mg TAKE 1 Univers N 5 mg 6-20 TABLET BY ity of tablet 00:00: MOUTH AT [address] AMLODIPINE 2022-0 Yes [id number] 2.5mg TAKE 1 Univers 2.5 mg 6-20 TABLET BY ity of tablet 00:00: MOUTH AT [address] ROSUVASTATI 2022- Yes [id number] 5mg TAKE 1 Univers N 5 mg 6-20 TABLET BY ity of tablet 00:00: MOUTH AT [address] AMLODIPINE 2022- Yes [id number] 2.5mg TAKE 1 Univers 2.5 mg 6-20 TABLET BY ity of tablet 00:00: MOUTH AT [address] ROSUVASTATI 2022- Yes [id number] 5mg TAKE 1 Univers N 5 mg 6-20 TABLET BY ity of tablet 00:00: MOUTH AT [address] AMLODIPINE Yes [id number] 2.5mg TAKE 1 Univers 2.5 mg 6-20 TABLET BY ity of tablet 00:00: MOUTH AT [address] ROSUVASTATI Yes [id number] 5mg TAKE 1 Univers N 5 mg 6-20 TABLET BY ity of tablet 00:00: MOUTH AT [address] AMLODIPINE 2022-0 Yes [id number] 2.5mg TAKE 1 Univers 2.5 mg 6-20 TABLET BY ity of tablet 00:00: MOUTH AT [address] ROSUVASTATI 2022- Yes [id number] 5mg TAKE 1 Univers N 5 mg 6-20 TABLET BY ity of tablet 00:00: MOUTH AT [address] AMLODIPINE 2022-0 Yes [id number] 2.5mg TAKE 1 Univers 2.5 mg 6-20 TABLET BY ity of tablet 00:00: MOUTH AT [address] ROSUVASTATI 2022- Yes [id number] 5mg TAKE 1 Univers N 5 mg 6-20 TABLET BY ity of tablet 00:00: MOUTH AT [address] AMLODIPINE Yes [id number] 2.5mg TAKE 1 Univers 2.5 mg 6-20 TABLET BY ity of tablet 00:00: MOUTH AT [place] [facility] ROSUVASTATI Yes [id number] 5mg TAKE 1 Univers N 5 mg 6-20 TABLET BY ity of tablet 00:00: MOUTH AT [place] [facility] AMLODIPINE Yes [id number] 2.5mg TAKE 1 Univers 2.5 mg 6-20 TABLET BY ity of tablet 00:00: MOUTH AT [place] [facility] ROSUVASTATI Yes [id number] 5mg TAKE 1 Univers N 5 mg 6-20 TABLET BY ity of tablet 00:00: MOUTH AT [place] [facility] AMLODIPINE Yes [id number] 2.5mg TAKE 1 Univers 2.5 mg 6-20 TABLET BY ity of tablet 00:00: MOUTH AT [place] [facility] ROSUVASTATI Yes [id number] 5mg TAKE 1 Univers N 5 mg 6-20 TABLET BY ity of tablet 00:00: MOUTH AT [place] [facility] AMLODIPINE Yes [id number] 2.5mg TAKE 1 Univers 2.5 mg 6-20 TABLET BY ity of tablet 00:00: MOUTH AT [address] clotrimazol 2022- No [id number] Apply to Univers e 1 % 11-01 area(s) 3 ity of topical 00:00: 04:59 (three) [place] cream 00 :00 times Medical daily for Branch 14 days. clotrimazol 2022- No [id number] Apply to Univers e 1 % 11-01 area(s) 3 ity of topical 00:00: 04:59 (three) [place] cream 00 :00 times Medical daily for Branch 14 days. clotrimazol 2022-2022- No [id number] Apply to Univers e 1 % 11-01 area(s) 3 ity of topical 00:00: 04:59 (three) [place] cream 00 :00 times Medical daily for Branch 14 days. clotrimazol 2022- No [id number] Apply to Univers e 1 % 11-01 area(s) 3 ity of topical 00:00: 04:59 (three) [place] cream 00 :00 times Medical daily for Branch 14 days. clotrimazol 2022- No [id number] Apply to Univers e 1 % 11-01 area(s) 3 ity of topical 00:00: 04:59 (three) [place] cream 00 :00 times Medical daily for Branch 14 days. losartan 2022-0 Yes [facility] (Cozaar) 5-31 Health 100 MG 11:52: tablet 14 Semaglutide 2022-0 Yes Inject [facility] (OZEMPIC, 1 5- under the Hea lth MG/DOSE, 11:52: skin. [place]) 14 losartan 2022-0 Yes [facility] (Cozaar) 5-31 Health 100 MG 11:52: tablet 14 Semaglutide 2022-0 Yes Inject UT (OZEMPIC, 1 - under the Hea lth MG/DOSE, 11:52: skin. [place]) 14 losartan 2022-0 Yes [facility] (Cozaar) 5-31 Health 100 MG 11:52: tablet 14 Semaglutide 2022-0 Yes Inject UT (OZEMPIC, 1 - under the Hea lth MG/DOSE, 11:52: skin. [place]) 14 semaglutide 2022-0 Yes [id number] 1{tbl} Take 1 Univers (RYBELSUS) 5-23 tablet by ity of 3 mg Tab 00:00: mouth in [place] 00 the Medical morning. Branch Start 3mg qDay x 30 days, then increase to 7mg qDay x 30 days, then increase to 14mg qDay semaglutide 2023-0 Yes [id number] 1{tbl} Take 1 Univers (RYBELSUS) 5-23 tablet by ity of 3 mg Tab 00:00: mouth in [place] 00 the Medical morning. Branch Start 3mg qDay x 30 days, then increase to 7mg qDay x 30 days, then increase to 14mg qDay semaglutide 2023-0 Yes [id number] 1{tbl} Take 1 Univers (RYBELSUS) 5-23 tablet by ity of 3 mg Tab 00:00: mouth in [place] 00 the Medical morning. Branch Start 3mg qDay x 30 days, then increase to 7mg qDay x 30 days, then increase to 14mg qDay semaglutide 2023-0 Yes [id number] 1{tbl} Take 1 Univers (RYBELSUS) 5-23 tablet by ity of 3 mg Tab 00:00: mouth in [place] the Medical morning. Branch Start 3mg qDay x 30 days, then increase to 7mg qDay x 30 days, then increase to 14mg qDay semaglutide 2023-0 Yes [id number] 1{tbl} Take 1 Univers (RYBELSUS) 5-23 tablet by ity of 3 mg Tab 00:00: mouth in [place] the Medical morning. Branch Start 3mg qDay x 30 days, then increase to 7mg qDay x 30 days, then increase to 14mg qDay semaglutide 2023-0 Yes [id number] 1{tbl} Take 1 Univers (RYBELSUS) 5-23 tablet by ity of 3 mg Tab 00:00: mouth in [place] the Medical morning. Branch Start 3mg qDay x 30 days, then increase to 7mg qDay x 30 days, then increase to 14mg qDay semaglutide 2023-0 Yes [id number] 1{tbl} Take 1 Univers (RYBELSUS) 5-23 tablet by ity of 3 mg Tab 00:00: mouth in [place] the Medical morning. Branch Start 3mg qDay x 30 days, then increase to 7mg qDay x 30 days, then increase to 14mg qDay semaglutide 2023-0 Yes [id number] 1{tbl} Take 1 Univers (RYBELSUS) 5-23 tablet by ity of 3 mg Tab 00:00: mouth in [place] the Medical morning. Branch Start 3mg qDay x 30 days, then increase to 7mg qDay x 30 days, then increase to 14mg qDay semaglutide 2023-0 Yes [id number] 1{tbl} Take 1 Univers (RYBELSUS) 5-23 tablet by ity of 3 mg Tab 00:00: mouth in [place] the Medical morning. Branch Start 3mg qDay x 30 days, then increase to 7mg qDay x 30 days, then increase to 14mg qDay semaglutide 2023-0 Yes [id number] 1{tbl} Take 1 Univers (RYBELSUS) 5-23 tablet by ity of 3 mg Tab 00:00: mouth in [place] the Medical morning. Branch Start 3mg qDay x 30 days, then increase to 7mg qDay x 30 days, then increase to 14mg qDay semaglutide 2022-0 Yes [id number] 1{tbl} Take 1 Univers (RYBELSUS) 5-23 tablet by ity of 3 mg Tab 00:00: mouth in [place] 00 the Medical morning. Branch Start 3mg qDay x 30 days, then increase to 7mg qDay x 30 days, then increase to 14mg qDay semaglutide 3-0 Yes [id number] 1{tbl} Take 1 Univers (RYBELSUS) 5-23 tablet by ity of 3 mg Tab 00:00: mouth in [place] the Medical morning. Branch Start 3mg qDay x 30 days, then increase to 7mg qDay x 30 days, then increase to 14mg qDay semaglutide 3-0 Yes [id number] 1{tbl} Take 1 Univers (RYBELSUS) 5-23 tablet by ity of 3 mg Tab 00:00: mouth in [place] the Medical morning. Branch Start 3mg qDay x 30 days, then increase to 7mg qDay x 30 days, then increase to 14mg qDay Nitrofurant 2022-0 2022- No [id number] 100mg Take 1 Univers oin&Nit. 5-17 05-23 capsule by ity of Macrocryst 00:00: 04:59 mouth [place] 100 mg 00 :00 the Medical [facility] morning Branch and 1 capsule in the evening. Do all this for 5 days. phenazopyri 2022-0 2022- No [id number] 200mg Take 2 Univers dine 100 mg 5-17 05-20 tablets by i ty of tablet 00:00: 04:59 mouth in [place] 00 :00 the Medical morning Branch and 2 tablets at noon and 2 tablets in the evening. Do all this for 2 days. ALLOPURINOL 2022-0 Yes [id number] 100mg TAKE 1 Univers 100 mg 5-15 TABLET BY ity of tablet 00:00: MOUTH IN [place] 00 THE Medical MORNING Branch ALLOPURINOL 2022-0 Yes [id number] 100mg TAKE 1 Univers 100 mg 5-15 TABLET BY ity of tablet 00:00: MOUTH IN [place] 00 THE Medical MORNING Branch ALLOPURINOL 3-0 Yes [id number] 100mg TAKE 1 Univers 100 mg 5-15 TABLET BY ity of tablet 00:00: MOUTH IN [place] 00 THE Medical MORNING Branch ALLOPURINOL 3-0 Yes [id number] 100mg TAKE 1 Univers 100 mg 5-15 TABLET BY ity of tablet 00:00: MOUTH IN [place] 00 THE Medical MORNING Branch ALLOPURINOL 3-0 Yes [id number] 100mg TAKE 1 Univers 100 mg 5-15 TABLET BY ity of tablet 00:00: MOUTH IN [place] 00 THE Medical MORNING Branch ALLOPURINOL 2022-0 Yes [id number] 100mg TAKE 1 Univers 100 mg 5-15 TABLET BY ity of tablet 00:00: MOUTH IN [place] 00 THE Medical MORNING Branch ALLOPURINOL 2022-0 Yes [id number] 100mg TAKE 1 [facility] 100 mg 5-15 TABLET BY [facility] tablet 00:00: MOUTH IN [place] 00 THE Medical MORNING Branch ALLOPURINOL 2022-0 Yes [id number] 100mg TAKE 1 [facility] 100 mg 5-15 TABLET BY [facility] of tablet 00:00: MOUTH IN [place] 00 THE Medical MORNING Branch ALLOPURINOL 2022-0 Yes [id number] 100mg TAKE 1 [facility] 100 mg 5-15 TABLET BY [facility] of tablet 00:00: MOUTH IN [place] 00 THE Medical MORNING Branch ALLOPURINOL 2022-0 Yes [id number] 100mg TAKE 1 [facility] 100 mg 5-15 TABLET BY [facility] of tablet 00:00: MOUTH IN [place] 00 THE Medical MORNING Branch ALLOPURINOL 3-0 Yes [id number] 100mg TAKE 1 [facility] 100 mg 5-15 TABLET BY [facility] of tablet 00:00: MOUTH IN [place] 00 THE Medical MORNING Branch ALLOPURINOL 3-0 Yes [id number] 100mg TAKE 1 [facility] 100 mg 5-15 TABLET BY [facility] of tablet 00:00: MOUTH IN [place] 00 THE Medical MORNING Branch ALLOPURINOL 3-0 Yes [id number] 100mg TAKE 1 [facility] 100 mg 5-15 TABLET BY [facility] of tablet 00:00: MOUTH IN [place] 00 THE Medical MORNING Branch ALLOPURINOL 2022-0 Yes [id number] 100mg TAKE 1 [facility] 100 mg 5-15 TABLET BY [facility] of tablet 00:00: MOUTH IN [place] 00 THE Medical MORNING Branch Nitrofurant 3-0 3- No [id number] 100mg Take 1 [facility] oin&Nit. 5-02 05-10 capsule by [facility] of Macrocryst 00:00: 04:59 mouth in [place] 100 mg 00 :00 the Medical capsule morning Branch and 1 capsule in the evening. Do all this for 7 days. famotidine 2023-0 Yes [id number] 40mg Take 1 [facility] 40 mg 4-26 tablet by [facility] of tablet 00:00: mouth in [place] the Medical morning. Branch famotidine 3-0 Yes [id number] 40mg Take 1 [facility] 40 mg 4-26 tablet by [facility] of tablet 00:00: mouth in [place] the Medical morning. Branch famotidine 2023-0 Yes [id number] 40mg Take 1 [facility] 40 mg 4-26 tablet by [facility] of tablet 00:00: mouth in [place] the Medical morning. Branch famotidine 3-0 Yes [id number] 40mg Take 1 [facility] 40 mg 4-26 tablet by [facility] of tablet 00:00: mouth in [place] the Medical morning. Branch famotidine 3-0 Yes [id number] 40mg Take 1 [facility] 40 mg 4-26 tablet by [facility] of tablet 00:00: mouth in [place] the Medical morning. Branch famotidine 3-0 Yes [id number] 40mg Take 1 [facility] 40 mg 4-26 tablet by [facility] of tablet 00:00: mouth in [place] the Medical morning. Branch famotidine 3-0 Yes [id number] 40mg Take 1 [facility] 40 mg 4-26 tablet by [facility] of tablet 00:00: mouth in [place] the Medical morning. Branch famotidine 3-0 Yes [id number] 40mg Take 1 [facility] 40 mg 4-26 tablet by [facility] of tablet 00:00: mouth in [place] the Medical morning. Branch famotidine 2023-0 Yes [id number] 40mg Take 1 [facility] 40 mg 4-26 tablet by [facility] of tablet 00:00: mouth in [place] the Medical morning. Branch famotidine 2023-0 Yes [id number] 40mg Take 1 [facility] 40 mg 4-26 tablet by [facility] of tablet 00:00: mouth in [place] the Medical morning. Branch famotidine 2023-0 Yes [id number] 40mg Take 1 [facility] 40 mg 4-26 tablet by [facility] of tablet 00:00: mouth in [place] the Medical morning. Branch famotidine 2023-0 Yes [id number] 40mg Take 1 [facility] 40 mg 4-26 tablet by [facility] of tablet 00:00: mouth in [place] 00 the Medical morning. Branch famotidine 2022-0 Yes [id number] 40mg Take 1 [facility] 40 mg 4-26 tablet by [facility] of tablet 00:00: mouth in [place] 00 the Medical morning. Branch famotidine 2022-0 Yes [id number] 40mg Take 1 [facility] 40 mg 4-26 tablet by [facility] of tablet 00:00: mouth in [place] 00 the Medical morning. Branch famotidine 2022-0 Yes [id number] 40mg Take 1 [facility] 40 mg 4-26 tablet by [facility] of tablet 00:00: mouth in [place] 00 the Medical morning. Branch famotidine 2022-0 2022- No [id number] 40mg Take 1 [facility] 40 mg 4-26 06-22 tablet by [facility] of tablet 00:00: 00:00 mouth in [place] 00 :00 the Medical morning. Branch famotidine 2022-0 2022- No [id number] 40mg Take 1 [facility] 40 mg 4-26 06-22 tablet by [facility] of tablet 00:00: 00:00 mouth in [place] 00 :00 the Medical morning. Branch telmisartan 2022-0 Yes [id number] TAKE [facility] -hydrochlor 4-17 ONE-HALF [facility] of othiazide 00:00: TABLET BY [place] [facility] 40-12.5 mg 00 MOUTH ONCE Med ical per tablet DAILY - Branch DISCARD UNUSED 1/2 TABLET telmisartan 2022-0 Yes [id number] TAKE [facility] -hydrochlor 4-17 ONE-HALF it[facility] of othiazide 00:00: TABLET BY [place] [facility] 40-12.5 mg 00 MOUTH ONCE Med ical per tablet DAILY - Branch DISCARD UNUSED 1/2 TABLET telmisartan 2022-0 Yes [id number] TAKE [facility] -hydrochlor 4-17 ONE-HALF it[facility] of othiazide 00:00: TABLET BY [place] 40-12.5 mg 00 MOUTH ONCE Med ical per tablet DAILY - Branch DISCARD UNUSED 1/2 TABLET telmisartan 2022-0 Yes [id number] TAKE [facility] [place] -hydrochlor 4-17 ONE-HALF ity of othiazide 00:00: TABLET BY [place] 40-12.5 mg 00 MOUTH ONCE Med ical per tablet DAILY - Branch DISCARD UNUSED 1/2 TABLET telmisartan 2022-0 Yes [id number] TAKE [facility] [place] -hydrochlor 4-17 ONE-HALF ity of othiazide 00:00: TABLET BY [place] [facility] 40-12.5 mg 00 MOUTH ONCE Med ical per tablet DAILY - Branch DISCARD UNUSED 1/2 TABLET telmisartan 2022-0 Yes [id number] TAKE [facility] [place] -hydrochlor 4-17 ONE-HALF ity of othiazide 00:00: TABLET BY [place] 40-12.5 mg 00 MOUTH ONCE Med ical per tablet DAILY - Branch DISCARD UNUSED 1/2 TABLET telmisartan 2022-0 Yes [id number] TAKE [facility] [place] -hydrochlor 4-17 ONE-HALF ity of othiazide 00:00: TABLET BY [place] 40-12.5 mg 00 MOUTH ONCE Med ical per tablet DAILY - Branch DISCARD UNUSED 1/2 TABLET telmisartan 2022-0 Yes [id number] TAKE [facility] [place] -hydrochlor 4-17 ONE-HALF ity of othiazide 00:00: TABLET BY [place] [facility] 40-12.5 mg 00 MOUTH ONCE Med ical per tablet DAILY - Branch DISCARD UNUSED 1/2 TABLET telmisartan 2022-0 Yes [id number] TAKE [facility] [place] -hydrochlor 4-17 ONE-HALF ity of othiazide 00:00: TABLET BY [place] 40-12.5 mg 00 MOUTH ONCE Med ical per tablet DAILY - Branch DISCARD UNUSED 1/2 TABLET telmisartan 2022-0 Yes [id number] TAKE [facility] -hydrochlor 4-17 ONE-HALF ity of othiazide 00:00: TABLET BY [place] [facility] 40-12.5 mg 00 MOUTH ONCE Med ical per tablet DAILY - Branch DISCARD UNUSED 1/2 TABLET telmisartan 2022-0 Yes [id number] TAKE [facility] [place] -hydrochlor 4-17 ONE-HALF ity of othiazide 00:00: TABLET BY [place] [facility] 40-12.5 mg 00 MOUTH ONCE Med ical per tablet DAILY - Branch DISCARD UNUSED 1/2 TABLET telmisartan 2022-0 Yes [id number] TAKE [facility] [place] -hydrochlor 4-17 ONE-HALF ity of othiazide 00:00: TABLET BY [place] [facility] 40-12.5 mg 00 MOUTH ONCE Med ical per tablet DAILY - Branch DISCARD UNUSED 1/2 TABLET telmisartan 2022-0 Yes [id number] TAKE [facility] -hydrochlor 4-17 ONE-HALF ity of othiazide 00:00: TABLET BY [place] [facility] 40-12.5 mg 00 MOUTH ONCE Med ical per tablet DAILY - Branch DISCARD UNUSED 1/2 TABLET telmisartan 0 Yes [id number] TAKE [facility] -hydrochlor 4-17 ONE-HALF ity of othiazide 00:00: TABLET BY [place] [facility] 40-12.5 mg 00 MOUTH ONCE Med ical per tablet DAILY - Branch DISCARD UNUSED 1/2 TABLET telmisartan 0 Yes [id number] TAKE [facility] -hydrochlor 4-17 ONE-HALF ity of othiazide 00:00: TABLET BY [place] [facility] 40-12.5 mg 00 MOUTH ONCE Med ical per tablet DAILY - Branch DISCARD UNUSED 1/2 TABLET telmisartan 2022-0 Yes [id number] TAKE [facility] [place] -hydrochlor 4-17 ONE-HALF ity of othiazide 00:00: TABLET BY [place] [facility] 40-12.5 mg 00 MOUTH ONCE Med ical per tablet DAILY - Branch DISCARD UNUSED 1/2 TABLET telmisartan 2022-0 2022- No [id number] TAKE [facility] -hydrochlor 4-17 -22 ONE-HALF ity of othiazide 00:00: 00:00 TABLET BY [place] 40-12.5 mg 00 :00 MOUTH ONCE Med ical per tablet DAILY - Branch DISCARD UNUSED 1/2 TABLET telmisartan 2022-0 2022- No [id number] TAKE [facility] -hydrochlor 4-17 -22 ONE-HALF ity of othiazide 00:00: 00:00 TABLET BY [place] 40-12.5 mg 00 :00 MOUTH ONCE Med ical per tablet DAILY - Branch DISCARD UNUSED 1/2 TABLET NAPROXEN Yes TAKE 1 [facility] 500 mg 3-20 TABLET BY [facility] of tablet 00:00: MOUTH [place] 00 TWICE Medical DAILY Branch NEEDED FOR MODERATE PAIN NAPROXEN 2022- Yes TAKE 1 [facility] 500 mg 3-20 TABLET BY it[facility] of tablet 00:00: MOUTH TWICE Medical DAILY Branch NEEDED FOR MODERATE PAIN NAPROXEN 2023-0 Yes TAKE 1 [facility] 500 mg 3-20 TABLET BY ity of tablet 00:00: MOUTH TWICE Medical DAILY Branch NEEDED FOR MODERATE PAIN NAPROXEN 2023-0 Yes TAKE 1 [facility] 500 mg 3-20 TABLET BY [facility] of tablet 00:00: MOUTH TWICE Medical DAILY Branch NEEDED FOR MODERATE PAIN NAPROXEN 2023-0 Yes TAKE 1 [facility] 500 mg 3-20 TABLET BY ity of tablet 00:00: MOUTH TWICE Medical DAILY Branch NEEDED FOR MODERATE PAIN NAPROXEN 2023-0 Yes TAKE 1 [facility] 500 mg 3-20 TABLET BY it[facility] of tablet 00:00: TWICE Medical DAILY Branch NEEDED FOR MODERATE PAIN NAPROXEN 2023-0 Yes TAKE 1 [facility] 500 mg 3-20 TABLET BY [facility] of tablet 00:00: TWICE Medical DAILY Branch NEEDED FOR MODERATE PAIN NAPROXEN 2023-0 Yes TAKE 1 [facility] 500 mg 3-20 TABLET BY it[facility] of tablet 00:00: TWICE Medical DAILY Branch NEEDED FOR MODERATE PAIN NAPROXEN 2023-0 Yes TAKE 1 [facility] 500 mg 3-20 TABLET BY [facility] of tablet 00:00: TWICE Medical DAILY Branch NEEDED FOR MODERATE PAIN NAPROXEN 2023-0 Yes TAKE 1 [facility] 500 mg 3-20 TABLET BY [facility] of tablet 00:00: TWICE Medical DAILY Branch NEEDED FOR MODERATE PAIN NAPROXEN 2023-0 Yes TAKE 1 [facility] 500 mg 3-20 TABLET BY [facility] of tablet 00:00: TWICE Medical DAILY Branch NEEDED FOR MODERATE PAIN NAPROXEN 2023-0 Yes TAKE 1 [facility] 500 mg 3-20 TABLET BY ity of tablet 00:00: TWICE Medical DAILY Branch NEEDED FOR MODERATE PAIN NAPROXEN 2023-0 Yes TAKE 1 [facility] 500 mg 3-20 TABLET BY ity of tablet 00:00: TWICE Medical DAILY Branch NEEDED FOR MODERATE PAIN NAPROXEN 2023-0 Yes TAKE 1 [facility] 500 mg 3-20 TABLET BY ity of tablet 00:00: TWICE Medical DAILY Branch NEEDED FOR MODERATE PAIN NAPROXEN 2023-0 Yes TAKE 1 [facility] 500 mg 3-20 TABLET BY ity of tablet 00:00: MOUTH TWICE Medical DAILY Branch NEEDED FOR MODERATE PAIN NAPROXEN 2022-0 Yes TAKE 1 [facility] 500 mg 3-20 TABLET BY ity of tablet 00:00: MOUTH [place] 00 TWICE Medical DAILY Branch NEEDED FOR MODERATE PAIN NAPROXEN 2022-0 Yes TAKE 1 [facility] 500 mg 3-20 TABLET BY ity of tablet 00:00: MOUTH [place] 00 TWICE Medical DAILY Branch NEEDED FOR MODERATE PAIN NAPROXEN 2022-0 2022- No TAKE 1 [facility] 500 mg 3-20 -22 TABLET BY [facility] of tablet 00:00: 00:00 MOUTH [place] 00 :00 TWICE Medical DAILY Branch NEEDED FOR MODERATE PAIN NAPROXEN 2022-0 2022- No TAKE 1 [facility] 500 mg 3-20 -22 TABLET BY ity of tablet 00:00: 00:00 MOUTH [place] 00 :00 TWICE Medical DAILY Branch NEEDED FOR MODERATE PAIN pantoprazol 2022-0 2022- No 20mg Take 20 mg [facility] e 20 mg EC 07-27 by mouth ity of tablet 11:41: 00:00 daily. [place] 43 :00 Medical Branch pantoprazol 2022-0 2022- No 20mg Take 20 mg [facility] e 20 mg EC 07-27- by mouth ity of tablet 11:41: 00:00 daily. [place] 43 :00 Medical Branch telmisartan 2022-0 Yes [id number] 0.5 tablet [facility] -hydrochlor 3-07 po once ity o f othiazide 00:00: daily [place] 40-12.5 mg 00 Medical per tablet Branch amLODIPine 2022-0 Yes [id number] 2.5mg Take 1 [facility] 2.5 mg 3-07 tablet by ity of tablet 00:00: mouth at [place] [address] bedtime. Medical Branch rosuvastati 2022-0 Yes [id number] 5mg Take 1 [facility] n 5 mg 3-07 tablet by [facility] of tablet 00:00: mouth at [place] [address] bedtime. Medical Branch tiZANidine 2022-0 Yes [id number] 2mg Take 1 [facility] 2 mg tablet 3- [id number] tablet by i ty of 00:00: mouth [place] 00 every 8 Medical (eight) Branch hours as needed for Pain (scale 7-10) (Muscle Spasms). naproxen 2022-0 Yes 500mg Take 1 [facility] 500 mg 3-07 tablet by [facility] of tablet 00:00: mouth 2 [place] 00 (two) Medical times Branch daily as needed for Pain (scale 4-6). allopurinoL 2022-0 Yes [id number] 100mg Take 1 [facility] 100 mg 3-07 tablet by ity of tablet 00:00: mouth in [place] 00 the Medical morning. Branch pantoprazol 2022-0 Yes [id number] 20mg Take 1 [facility] e 20 mg EC 3-07 tablet by ity of tablet 00:00: mouth in [place] 00 the Medical morning. Branch telmisartan 2022-0 Yes [id number] 0.5 tablet [facility] -hydrochlor 3-07 po once ity o f othiazide 00:00: daily [place] 40-12.5 mg 00 Medical per tablet Branch amLODIPine 2022-0 Yes [id number] 2.5mg Take 1 [facility] 2.5 mg 3-07 tablet by ity of tablet 00:00: mouth at [place] [address] bedtime. Medical Branch rosuvastati 2022-0 Yes [id number] 5mg Take 1 [facility] n 5 mg 3-07 tablet by [facility] of tablet 00:00: mouth at [place] [address] bedtime. Medical Branch tiZANidine 2022-0 Yes [id number] 2mg Take 1 [facility] 2 mg tablet 3-07 [id number] tablet by i ty of 00:00: mouth [place] 00 every 8 Medical (eight) Branch hours as needed for Pain (scale 7-10) (Muscle Spasms). naproxen 2022-0 Yes 500mg Take 1 [facility] 500 mg 3-07 tablet by [facility] of tablet 00:00: mouth 2 [place] 00 (two) Medical times Branch daily as needed for Pain (scale 4-6). allopurinoL 2022-0 Yes [id number] 100mg Take 1 [facility] 100 mg 3-07 tablet by ity of tablet 00:00: mouth in [place] 00 the Medical morning. Branch pantoprazol 2022-0 Yes [id number] 20mg Take 1 [facility] e 20 mg EC 3-07 tablet by ity of tablet 00:00: mouth in [place] 00 the Medical morning. Branch telmisartan 2022-0 Yes [id number] 0.5 tablet [facility] -hydrochlor 3-07 po once ity o f othiazide 00:00: daily [place] 40-12.5 mg 00 Medical per tablet Branch amLODIPine 2022-0 Yes [id number] 2.5mg Take 1 [facility] 2.5 mg 3-07 tablet by ity of tablet 00:00: mouth at [place] 00 bedtime. Medical Branch rosuvastati 2022-0 Yes [id number] 5mg Take 1 [facility] n 5 mg 3-07 tablet by ity of tablet 00:00: mouth at [place] 00 bedtime. Medical Branch tiZANidine 2022-0 Yes [id number] 2mg Take 1 [facility] 2 mg tablet 3- [id number] tablet by i ty of 00:00: mouth [place] 00 every 8 Medical (eight) Branch hours as needed for Pain (scale 7-10) (Muscle Spasms). naproxen 2022-0 Yes 500mg Take 1 [facility] 500 mg 3-07 tablet by [facility] of tablet 00:00: mouth 2 [place] 00 (two) Medical times Branch daily as needed for Pain (scale 4-6). allopurinoL 2022-0 Yes [id number] 100mg Take 1 [facility] 100 mg 3-07 tablet by ity of tablet 00:00: mouth in [place] 00 the Medical morning. Branch pantoprazol 2022-0 Yes [id number] 20mg Take 1 [facility] e 20 mg EC 3-07 tablet by ity of tablet 00:00: mouth in [place] 00 the Medical morning. Branch telmisartan 2022-0 Yes [id number] 0.5 tablet [facility] -hydrochlor 3-07 po once ity o f othiazide 00:00: daily [place] 40-12.5 mg 00 Medical per tablet Branch amLODIPine 2022-0 Yes [id number] 2.5mg Take 1 [facility] 2.5 mg 3-07 tablet by ity of tablet 00:00: mouth at [place] 00 bedtime. Medical Branch rosuvastati 2022-0 Yes [id number] 5mg Take 1 [facility] n 5 mg 3-07 tablet by ity of tablet 00:00: mouth at [place] 00 bedtime. Medical Branch tiZANidine 2022-0 Yes [id number] 2mg Take 1 [facility] 2 mg tablet 3- [id number] tablet by i ty of 00:00: mouth [place] 00 every 8 Medical (eight) Branch hours as needed for Pain (scale 7-10) (Muscle Spasms). allopurinoL 2022-0 Yes [id number] 100mg Take 1 [facility] 100 mg 3-07 tablet by ity of tablet 00:00: mouth in [place] the Medical morning. Branch pantoprazol 2022-0 Yes [id number] 20mg Take 1 [facility] e 20 mg EC 3-07 tablet by ity of tablet 00:00: mouth in [place] the Medical morning. Branch amLODIPine 2022-0 Yes [id number] 2.5mg Take 1 [facility] 2.5 mg 3-07 tablet by ity of tablet 00:00: mouth at [place] [address] bedtime. Medical Branch rosuvastati 2022-0 Yes [id number] 5mg Take 1 [facility] n 5 mg 3-07 tablet by ity of tablet 00:00: mouth at [place] 00 bedtime. Medical Branch tiZANidine 2022-0 Yes [id number] 2mg Take 1 [facility] 2 mg tablet 3- [id number] tablet by i ty of 00:00: mouth [place] [address] every 8 Medical (eight) Branch hours as needed for Pain (scale 7-10) (Muscle Spasms). allopurinoL 2022-0 Yes [id number] 100mg Take 1 [facility] 100 mg 3-07 tablet by ity of tablet 00:00: mouth in [place] the Medical morning. Branch pantoprazol 2022-0 Yes [id number] 20mg Take 1 [facility] e 20 mg EC 3-07 tablet by ity of tablet 00:00: mouth in [place] the Medical morning. Branch amLODIPine 2022-0 Yes [id number] 2.5mg Take 1 [facility] 2.5 mg 3-07 tablet by [facility]y of tablet 00:00: mouth at [place] [address] bedtime. Medical Branch rosuvastati 2022-0 Yes [id number] 5mg Take 1 [facility] n 5 mg 3-07 tablet by ity of tablet 00:00: mouth at [place] [address] bedtime. Medical Branch tiZANidine 2022-0 Yes [id number] 2mg Take 1 [facility] 2 mg tablet 3-07 [id number] tablet by i ty of 00:00: mouth [place] every 8 Medical (eight) Branch hours as needed for Pain (scale 7-10) (Muscle Spasms). allopurinoL 2022-0 Yes [id number] 100mg Take 1 [facility] 100 mg 3-07 tablet by ity of tablet 00:00: mouth in [place] 00 the Medical morning. Branch pantoprazol 2022-0 Yes [id number] 20mg Take 1 [facility] e 20 mg EC 3-07 tablet by ity of tablet 00:00: mouth in [place] 00 the Medical morning. Branch amLODIPine 2022-0 Yes [id number] 2.5mg Take 1 [facility] 2.5 mg 3-07 tablet by ity of tablet 00:00: mouth at [place] 00 bedtime. Medical Branch rosuvastati 2022-0 Yes [id number] 5mg Take 1 [facility] n 5 mg 3-07 tablet by ity of tablet 00:00: mouth at [place] 00 bedtime. Medical Branch tiZANidine 2022-0 Yes [id number] 2mg Take 1 [facility] 2 mg tablet 3-07 [id number] tablet by i ty of 00:00: mouth [place] 00 every 8 Medical (eight) Branch hours as needed for Pain (scale 7-10) (Muscle Spasms). allopurinoL 2022-0 Yes [id number] 100mg Take 1 [facility] 100 mg 3-07 tablet by ity of tablet 00:00: mouth in [place] 00 the Medical morning. Branch pantoprazol 2022-0 Yes [id number] 20mg Take 1 [facility] e 20 mg EC 3-07 tablet by ity of tablet 00:00: mouth in [place] the Medical morning. Branch amLODIPine 2022-0 Yes [id number] 2.5mg Take 1 [facility] 2.5 mg 3-07 tablet by ity of tablet 00:00: mouth at [place] [address] bedtime. Medical Branch rosuvastati 2022-0 Yes [id number] 5mg Take 1 [facility] n 5 mg 3-07 tablet by ity of tablet 00:00: mouth at [place] [address] bedtime. Medical Branch tiZANidine 2022-0 Yes [id number] 2mg Take 1 [facility] 2 mg tablet 3-07 [id number] tablet by i ty of 00:00: mouth [place] 00 every 8 Medical (eight) Branch hours as needed for Pain (scale 7-10) (Muscle Spasms). allopurinoL 2022-0 Yes [id number] 100mg Take 1 [facility] 100 mg 3-07 tablet by ity of tablet 00:00: mouth in [place] 00 the Medical morning. Branch pantoprazol 2022-0 Yes [id number] 20mg Take 1 [facility] e 20 mg EC 3-07 tablet by ity of tablet 00:00: mouth in [place] 00 the Medical morning. Branch amLODIPine 2022-0 Yes [id number] 2.5mg Take 1 [facility] 2.5 mg 3-07 tablet by ity of tablet 00:00: mouth at [place] 00 bedtime. Medical Branch rosuvastati 2022-0 Yes [id number] 5mg Take 1 [facility] n 5 mg 3-07 tablet by ity of tablet 00:00: mouth at [place] 00 bedtime. Medical Branch tiZANidine 2022-0 Yes [id number] 2mg Take 1 [facility] 2 mg tablet 3-07 [id number] tablet by i ty of 00:00: mouth [place] 00 every 8 Medical (eight) Branch hours as needed for Pain (scale 7-10) (Muscle Spasms). allopurinoL 2022-0 Yes [id number] 100mg Take 1 [facility] 100 mg 3-07 tablet by ity of tablet 00:00: mouth in [place] 00 the Medical morning. Branch pantoprazol 2022-0 Yes [id number] 20mg Take 1 [facility] e 20 mg EC 3-07 tablet by ity of tablet 00:00: mouth in [place] the Medical morning. Branch amLODIPine 2022-0 Yes [id number] 2.5mg Take 1 [facility] 2.5 mg 3-07 tablet by ity of tablet 00:00: mouth at [place] [address] bedtime. Medical Branch rosuvastati 2022-0 Yes [id number] 5mg Take 1 [facility] n 5 mg 3-07 tablet by ity of tablet 00:00: mouth at [place] [address] bedtime. Medical Branch tiZANidine 2022-0 Yes [id number] 2mg Take 1 [facility] 2 mg tablet 3-07 [id number] tablet by i ty of 00:00: mouth [place] 00 every 8 Medical (eight) Branch hours as needed for Pain (scale 7-10) (Muscle Spasms). pantoprazol 2022-0 Yes [id number] 20mg Take 1 [facility] e 20 mg EC 3-07 tablet by ity of tablet 00:00: mouth in [place] 00 the Medical morning. Branch amLODIPine 2022-0 Yes [id number] 2.5mg Take 1 [facility] 2.5 mg 3-07 tablet by ity of tablet 00:00: mouth at [place] [address] bedtime. Medical Branch rosuvastati 2022-0 Yes [id number] 5mg Take 1 [facility] n 5 mg 3-07 tablet by ity of tablet 00:00: mouth at [place] [address] bedtime. Medical Branch tiZANidine 2022-0 Yes [id number] 2mg Take 1 [facility] 2 mg tablet 3-07 [id number] tablet by i ty of 00:00: mouth [place] 00 every 8 Medical (eight) Branch hours as needed for Pain (scale 7-10) (Muscle Spasms). pantoprazol 2022-0 Yes [id number] 20mg Take 1 [facility] e 20 mg EC 3-07 tablet by ity of tablet 00:00: mouth in [place] 00 the Medical morning. Branch amLODIPine 2022-0 Yes [id number] 2.5mg Take 1 [facility] 2.5 mg 3-07 tablet by ity of tablet 00:00: mouth at [place] 00 bedtime. Medical Branch rosuvastati 2022-0 Yes [id number] 5mg Take 1 [facility] n 5 mg 3-07 tablet by ity of tablet 00:00: mouth at [place] 00 bedtime. Medical Branch tiZANidine 2022-0 Yes [id number] 2mg Take 1 [facility] 2 mg tablet 3-07 [id number] tablet by i ty of 00:00: mouth [place] every 8 Medical (eight) Branch hours as needed for Pain (scale 7-10) (Muscle Spasms). pantoprazol 2022-0 Yes [id number] 20mg Take 1 [facility] e 20 mg EC 3-07 tablet by ity of tablet 00:00: mouth in [place] 00 the Medical morning. Branch amLODIPine 2022-0 Yes [id number] 2.5mg Take 1 [facility] 2.5 mg 3-07 tablet by ity of tablet 00:00: mouth at [place] 00 bedtime. Medical Branch rosuvastati 2022-0 Yes [id number] 5mg Take 1 [facility] n 5 mg 3-07 tablet by ity of tablet 00:00: mouth at [place] 00 bedtime. Medical Branch tiZANidine 2022-0 Yes [id number] 2mg Take 1 [facility] 2 mg tablet 3-07 [id number] tablet by i ty of 00:00: mouth [place] 00 every 8 Medical (eight) Branch hours as needed for Pain (scale 7-10) (Muscle Spasms). pantoprazol 2022-0 Yes [id number] 20mg Take 1 [facility] e 20 mg EC 3-07 tablet by ity of tablet 00:00: mouth in [place] 00 the Medical morning. Branch amLODIPine 2022-0 Yes [id number] 2.5mg Take 1 [facility] 2.5 mg 3-07 tablet by ity of tablet 00:00: mouth at [place] 00 bedtime. Medical Branch rosuvastati 2022-0 Yes [id number] 5mg Take 1 [facility] n 5 mg 3-07 tablet by ity of tablet 00:00: mouth at [place] 00 bedtime. Medical Branch tiZANidine 2022-0 Yes [id number] 2mg Take 1 [facility] 2 mg tablet 3-07 [id number] tablet by i ty of 00:00: mouth [place] 00 every 8 Medical (eight) Branch hours as needed for Pain (scale 7-10) (Muscle Spasms). pantoprazol 2022-0 Yes [id number] 20mg Take 1 [facility] e 20 mg EC 3-07 tablet by ity of tablet 00:00: mouth in [place] 00 the Medical morning. Branch amLODIPine 2022-0 Yes [id number] 2.5mg Take 1 [facility] 2.5 mg 3-07 tablet by ity of tablet 00:00: mouth at [place] 00 bedtime. Medical Branch rosuvastati 2022-0 Yes [id number] 5mg Take 1 [facility] n 5 mg 3-07 tablet by ity of tablet 00:00: mouth at [place] 00 bedtime. Medical Branch tiZANidine 2022-0 Yes [id number] 2mg Take 1 [facility] 2 mg tablet 3- [id number] tablet by i ty of 00:00: mouth [place] every 8 Medical (eight) Branch hours as needed for Pain (scale 7-10) (Muscle Spasms). pantoprazol 2022-0 Yes [id number] 20mg Take 1 [facility] e 20 mg EC 3-07 tablet by ity of tablet 00:00: mouth in [place] 00 the Medical morning. Branch amLODIPine 2022-0 Yes [id number] 2.5mg Take 1 [facility] 2.5 mg 3-07 tablet by ity of tablet 00:00: mouth at [place] 00 bedtime. Medical Branch rosuvastati 2022-0 Yes [id number] 5mg Take 1 [facility] n 5 mg 3-07 tablet by ity of tablet 00:00: mouth at [place] 00 bedtime. Medical Branch tiZANidine 2022-0 Yes [id number] 2mg Take 1 [facility] 2 mg tablet 3-07 [id number] tablet by i ty of 00:00: mouth [place] 00 every 8 Medical (eight) Branch hours as needed for Pain (scale 7-10) (Muscle Spasms). pantoprazol 2022-0 Yes [id number] 20mg Take 1 [facility] e 20 mg EC 3-07 tablet by ity of tablet 00:00: mouth in [place] 00 the Medical morning. Branch amLODIPine 2022-0 Yes [id number] 2.5mg Take 1 [facility] 2.5 mg 3-07 tablet by ity of tablet 00:00: mouth at [place] 00 bedtime. Medical Branch rosuvastati 2022-0 Yes [id number] 5mg Take 1 [facility] n 5 mg 3-07 tablet by ity of tablet 00:00: mouth at [place] 00 bedtime. Medical Branch tiZANidine 0 Yes [id number] 2mg Take 1 [facility] 2 mg tablet 3-07 [id number] tablet by i ty of 00:00: mouth [place] 00 every 8 Medical (eight) Branch hours as needed for Pain (scale 7-10) (Muscle Spasms). pantoprazol 0 Yes [id number] 20mg Take 1 [facility] e 20 mg EC 3-07 tablet by ity of tablet 00:00: mouth in [place] the Medical morning. Branch amLODIPine 2022-0 Yes [id number] 2.5mg Take 1 [facility] 2.5 mg 3-07 tablet by ity of tablet 00:00: mouth at [place] 00 bedtime. Medical Branch rosuvastati 2022-0 Yes [id number] 5mg Take 1 [facility] n 5 mg 3-07 tablet by ity of tablet 00:00: mouth at [place] 00 bedtime. Medical Branch tiZANidine 2022-0 Yes [id number] 2mg Take 1 [facility] 2 mg tablet 3-07 [id number] tablet by i ty of 00:00: mouth [place] 00 every 8 Medical (eight) Branch hours as needed for Pain (scale 7-10) (Muscle Spasms). pantoprazol 2022-0 Yes [id number] 20mg Take 1 [facility] e 20 mg EC 3-07 tablet by ity of tablet 00:00: mouth in [place] 00 the Medical morning. Branch amLODIPine 2022-0 Yes [id number] 2.5mg Take 1 [facility] 2.5 mg 3-07 tablet by [facility] of tablet 00:00: mouth at [place] 00 bedtime. Medical Branch rosuvastati 2022-0 Yes [id number] 5mg Take 1 [facility] n 5 mg 3-07 tablet by [facility] of tablet 00:00: mouth at [place] 00 bedtime. Medical Branch tiZANidine 2022-0 Yes [id number] 2mg Take 1 [facility] 2 mg tablet 3- [id number] tablet by i ty of 00:00: mouth [place] 00 every 8 Medical (eight) Branch hours as needed for Pain (scale 7-10) (Muscle Spasms). pantoprazol 2022-0 Yes [id number] 20mg Take 1 [facility] e 20 mg EC 3-07 tablet by [facility] of tablet 00:00: mouth in [place] 00 the Medical morning. Branch tiZANidine 2022-0 Yes [id number] 2mg Take 1 [facility] 2 mg tablet 3- [id number] tablet by i ty of 00:00: mouth [place] 00 every 8 Medical (eight) Branch hours as needed for Pain (scale 7-10) (Muscle Spasms). pantoprazol 2022-0 Yes [id number] 20mg Take 1 [facility] e 20 mg EC 3-07 tablet by [facility] of tablet 00:00: mouth in [place] 00 the Medical morning. Branch tiZANidine 2022-0 Yes [id number] 2mg Take 1 [facility] 2 mg tablet 3- [id number] tablet by i ty of 00:00: mouth [place] 00 every 8 Medical (eight) Branch hours as needed for Pain (scale 7-10) (Muscle Spasms). tiZANidine 2022-0 Yes [id number] 2mg Take 1 [facility] 2 mg tablet 3- [id number] tablet by i ty of 00:00: mouth [place] 00 every 8 Medical (eight) Branch hours as needed for Pain (scale 7-10) (Muscle Spasms). tiZANidine 2022-0 Yes [id number] 2mg Take 1 [facility] 2 mg tablet 3- [id number] tablet by i ty of 00:00: mouth [place] 00 every 8 Medical (eight) Branch hours as needed for Pain (scale 7-10) (Muscle Spasms). tiZANidine 2022-0 Yes [id number] 2mg Take 1 [facility] 2 mg tablet 3- [id number] tablet by i ty of 00:00: mouth [place] 00 every 8 Medical (eight) Branch hours as needed for Pain (scale 7-10) (Muscle Spasms). tiZANidine 2022-0 Yes [id number] 2mg Take 1 [facility] 2 mg tablet 3- [id number] tablet by i ty of 00:00: mouth [place] 00 every 8 Medical (eight) Branch hours as needed for Pain (scale 7-10) (Muscle Spasms). tiZANidine 2022-0 Yes [id number] 2mg Take 1 [facility] 2 mg tablet 07-27 [id number] tablet by i ty of 00:00: mouth [place] 00 every 8 Medical (eight) Branch hours as needed for Pain (scale 7-10) (Muscle Spasms). tiZANidine 0 Yes [id number] 2mg Take 1 [facility] 2 mg tablet 07-27 [id number] tablet by i ty of 00:00: mouth [place] 00 every 8 Medical (eight) Branch hours as needed for Pain (scale 7-10) (Muscle Spasms). tiZANidine 0 Yes [id number] 2mg Take 1 [facility] 2 mg tablet 3- [id number] tablet by i ty of 00:00: mouth [place] 00 every 8 Medical (eight) Branch hours as needed for Pain (scale 7-10) (Muscle Spasms). amLODIPine 0 Yes 1{tbl} Take 1 [facility] (Norvasc) 3-07 tablet by [facility] 2.5 MG 00:00: mouth [place] 00 every night. rosuvastati 2022-0 Yes 1{tbl} Take 1 [facility] (Crestor) 3-07 tablet by [facility] 5 MG tablet 00:00: mouth 00 every night. pantoprazol 2022-0 Yes 1{tbl} Take 1 [facility] 3-07 tablet by [facility] (ProtoNix) 00:00: mouth 1 20 MG EC 00 (one) time tablet each day in the morning. amLODIPine 2022-0 Yes 1{tbl} Take 1 [facility] (Norvasc) 3-07 tablet by [facility]alt [facility] 2.5 MG 00:00: mouth [place] 00 every night. rosuvastati 2022-0 Yes 1{tbl} Take 1 [facility] (Crestor) 3-07 tablet by [facility] 5 MG tablet 00:00: mouth 00 every night. pantoprazol 2022-0 Yes 1{tbl} Take 1 [facility] 3-07 tablet by [facility] (ProtoNix) 00:00: mouth 1 20 MG EC 00 (one) time tablet each day in the morning. amLODIPine 2022-0 Yes 1{tbl} Take 1 [facility] (Norvasc) 3-07 tablet by [facility]alt [facility] 2.5 MG 00:00: mouth [place] 00 every night. rosuvastati 2022-0 Yes 1{tbl} Take 1 [facility] (Crestor) 3-07 tablet by [facility] 5 MG tablet 00:00: mouth 00 every night. pantoprazol 2022-0 Yes 1{tbl} Take 1 [facility] 3-07 tablet by [facility] (ProtoNix) 00:00: mouth 1 20 MG EC 00 (one) time tablet each day in the morning. pantoprazol 2022-2022- No [id number] 20mg Take 1 [facility] e 20 mg EC 07-27 tablet by [facility] of tablet 00:00: 00:00 mouth in [place] 00 :00 the Medical morning. Branch pantoprazol 2022-2022- No [id number] 20mg Take 1 [facility] e 20 mg EC 07-27 tablet by [facility] of tablet 00:00: 00:00 mouth in [place] 00 :00 the Medical morning. Branch amLODIPine 2022-2022- No [id number] 2.5mg Take 1 [facility] 2.5 mg 07-27-20 tablet by [facility]y of tablet 00:00: 00:00 mouth at [place] 00 :00 bedtime. Medical Branch rosuvastati 2022-2022- No [id number] 5mg Take 1 [facility] n 5 mg -11 25-20 tablet by [facility]y of tablet 00:00: 00:00 mouth at [place] 00 :00 bedtime. Medical Branch allopurinoL 2022-2022- No [id number] 100mg Take 1 [facility] 100 mg 3-11 24-15 tablet by [facility] of tablet 00:00: 00:00 mouth in [place] 00 :00 the Medical morning. Branch allopurinoL 2022-2022- No [id number] 100mg Take 1 [facility] 100 mg 3- 05-15 tablet by [facility]y of tablet 00:00: 00:00 mouth in [place] 00 :00 the Medical morning. Branch allopurinoL 2022-2022- No [id number] 100mg Take 1 [facility] 100 mg 3-11 24-15 tablet by [facility] of tablet 00:00: 00:00 mouth in [place] 00 :00 the Medical morning. Branch allopurinoL 2022-2022- No [id number] 100mg Take 1 [facility] 100 mg 3- 05-15 tablet by [facility] of tablet 00:00: 00:00 mouth in [place] 00 :00 the Medical morning. Branch allopurinoL 2022- No [id number] 100mg Take 1 [facility] 100 mg 07-2715 tablet by [facility] of tablet 00:00: 00:00 mouth in [place] 00 :00 the Medical morning. Branch allopurinoL 2022- No [id number] 100mg Take 1 [facility] 100 mg 07-27 tablet by [facility] of tablet 00:00: 00:00 mouth in [place] 00 :00 the Medical morning. Branch telmisartan 2022- No [id number] 0.5 tablet [facility] -hydrochlor 07-27-17 po once [facility] of othiazide 00:00: 00:00 daily [place] 40-12.5 mg 00 :00 Medical per tablet Branch naproxen 2022- No 500mg Take 1 [facility] rs 500 mg 07-2720 tablet by [facility] of tablet 00:00: 00:00 mouth 2 [place] 00 :00 (two) Medical times Branch daily as needed for Pain (scale 4-6). TIZANIDINE 2022-0 Yes [id number] TAKE 1 [facility] 2 mg tablet 3- [id number] TABLET BY i ty of 00:00: MOUTH [place] 00 EVERY 8 Medical HOURS Branch NEEDED FOR MUSCLE SPASMS TIZANIDINE 2022-0 Yes [id number] TAKE 1 [facility] 2 mg tablet 3-03 [id number] TABLET BY i ty of 00:00: MOUTH [place] 00 EVERY 8 Medical HOURS Branch NEEDED FOR MUSCLE SPASMS TIZANIDINE 2022-0 Yes [id number] TAKE 1 [facility] 2 mg tablet 3- [id number] TABLET BY i ty of 00:00: MOUTH [place] 00 EVERY 8 Medical HOURS Branch NEEDED FOR MUSCLE SPASMS TIZANIDINE 2022-0 Yes [id number] TAKE 1 [facility] 2 mg tablet 3-03 [id number] TABLET BY i ty of 00:00: MOUTH [place] 00 EVERY 8 Medical HOURS Branch NEEDED FOR MUSCLE SPASMS TIZANIDINE 2022-0 Yes [id number] TAKE 1 [facility] 2 mg tablet 3-03 [id number] TABLET BY i ty of 00:00: MOUTH [place] 00 EVERY 8 Medical HOURS Branch NEEDED FOR MUSCLE SPASMS TIZANIDINE 2022-0 2023- No [id number] TAKE 1 [facility] 2 mg tablet 07-23 [id number] TABLET BY ity of 00:00: 00:00 MOUTH [place] 00 :00 EVERY 8 Medical HOURS Branch NEEDED FOR MUSCLE SPASMS TIZANIDINE 0 2022- No [id number] TAKE 1 [facility] 2 mg tablet 07-23 [id number] TABLET BY ity of 00:00: 00:00 MOUTH [place] 00 :00 EVERY 8 Medical HOURS Branch NEEDED FOR MUSCLE SPASMS tiZANidine 0 Yes [id number] 2mg Take 1 [facility] 2 mg tablet 2-14 [id number] tablet by i ty of 00:00: mouth [place] 00 every 8 Medical (eight) Branch hours as needed (muscle spasms). Diclofenac Yes [id number] Apply to [facility] Sodium 2-14 [id number] area(s) 4 ity of (VOLTAREN) 00:00: (four) [place] 1 % gel 00 times Medical daily. Branch Apply 4 g qid lidocaine 5 Yes [id number] Apply 2g [facility] % ointment 2-14 [id number] to ity of 00:00: affected [place] 00 areas BID Medical PRN Branch tiZANidine 0 Yes [id number] 2mg Take 1 [facility] 2 mg tablet 2-14 [id number] tablet by i ty of 00:00: mouth [place] 00 every 8 Medical (eight) Branch hours as needed (muscle spasms). Diclofenac Yes [id number] Apply to [facility] Sodium 2-14 [id number] area(s) 4 ity of (VOLTAREN) 00:00: (four) [place] 1 % gel 00 times Medical daily. Branch Apply 4 g qid lidocaine 5 0 Yes [id number] Apply 2g [facility] % ointment 2-14 [id number] to ity of 00:00: affected [place] 00 areas BID Medical PRN Branch tiZANidine 0 Yes [id number] 2mg Take 1 [facility] 2 mg tablet 2-14 [id number] tablet by i ty of 00:00: mouth [place] 00 every 8 Medical (eight) Branch hours as needed (muscle spasms). Diclofenac 0 Yes [id number] Apply to [facility] Sodium 2-14 [id number] area(s) 4 ity of (VOLTAREN) 00:00: (four) [place] 1 % gel 00 times Medical daily. Branch Apply 4 g qid lidocaine 5 2022-0 Yes [id number] Apply 2g [facility] % ointment 2-14 [id number] to ity of 00:00: affected [place] 00 areas BID Medical PRN Branch tiZANidine 0 Yes [id number] 2mg Take 1 [facility] 2 mg tablet 2-14 [id number] tablet by i ty of 00:00: mouth [place] 00 every 8 Medical (eight) Branch hours as needed (muscle spasms). Diclofenac 2022-0 Yes [id number] Apply to [facility] Sodium 2-14 [id number] area(s) 4 ity of (VOLTAREN) 00:00: (four) [place] 1 % gel 00 times Medical daily. Branch Apply 4 g qid lidocaine 5 2022-0 Yes [id number] Apply 2g [facility] % ointment 2-14 [id number] to ity of 00:00: affected [place] 00 areas BID Medical PRN Branch Diclofenac 2022-0 Yes [id number] Apply to [facility] Sodium 2-14 [id number] area(s) 4 ity of (VOLTAREN) 00:00: (four) [place] 1 % gel 00 times Medical daily. Branch Apply 4 g qid lidocaine 5 2022-0 Yes [id number] Apply 2g [facility] % ointment 2-14 [id number] to ity of 00:00: affected [place] 00 areas BID Medical PRN Branch Diclofenac 2022-0 Yes [id number] Apply to [facility] Sodium 2-14 [id number] area(s) 4 ity of (VOLTAREN) 00:00: (four) [place] 1 % gel 00 times Medical daily. Branch Apply 4 g qid lidocaine 5 2022-0 Yes [id number] Apply 2g [facility] % ointment 2-14 [id number] to ity of 00:00: affected [place] 00 areas BID Medical PRN Branch Diclofenac 2022-0 Yes [id number] Apply to [facility] Sodium 2-14 [id number] area(s) 4 ity of (VOLTAREN) 00:00: (four) [place] 1 % gel 00 times Medical daily. Branch Apply 4 g qid lidocaine 5 2022-0 Yes [id number] Apply 2g [facility] % ointment 2-14 [id number] to ity of 00:00: affected [place] 00 areas BID Medical PRN Branch Diclofenac 2022-0 Yes [id number] Apply to [facility] Sodium 2-14 [id number] area(s) 4 ity of (VOLTAREN) 00:00: (four) [place] 1 % gel 00 times Medical daily. Branch Apply 4 g qid lidocaine 5 3-0 Yes [id number] Apply 2g [facility] % ointment 2-14 [id number] to ity of 00:00: affected [place] 00 areas BID Medical PRN Branch Diclofenac 2022-0 Yes [id number] Apply to [facility] Sodium 2-14 [id number] area(s) 4 ity of (VOLTAREN) 00:00: (four) [place] 1 % gel 00 times Medical daily. Branch Apply 4 g qid lidocaine 5 2022-0 Yes [id number] Apply 2g [facility] % ointment 2-14 [id number] to ity of 00:00: affected [place] 00 areas BID Medical PRN Branch Diclofenac 2022-0 Yes [id number] Apply to [facility] Sodium 2-14 [id number] area(s) 4 ity of (VOLTAREN) 00:00: (four) [place] 1 % gel 00 times Medical daily. Branch Apply 4 g qid lidocaine 5 2022-0 Yes [id number] Apply 2g [facility] % ointment 2-14 [id number] to ity of 00:00: affected [place] 00 areas BID Medical PRN Branch Diclofenac 2022-0 Yes [id number] Apply to [facility] Sodium 2-14 [id number] area(s) 4 ity of (VOLTAREN) 00:00: (four) [place] 1 % gel 00 times Medical daily. Branch Apply 4 g qid lidocaine 5 2022-0 Yes [id number] Apply 2g [facility] % ointment 2-14 [id number] to ity of 00:00: affected [place] 00 areas BID Medical PRN Branch Diclofenac 2022-0 Yes [id number] Apply to [facility] Sodium 2-14 [id number] area(s) 4 ity of (VOLTAREN) 00:00: (four) [place] 1 % gel 00 times Medical daily. Branch Apply 4 g qid lidocaine 5 2022-0 Yes [id number] Apply 2g [facility] % ointment 2-14 [id number] to ity of 00:00: affected [place] 00 areas BID Medical PRN Branch Diclofenac 2022-0 Yes [id number] Apply to [facility] Sodium 2-14 [id number] area(s) 4 ity of (VOLTAREN) 00:00: (four) [place] 1 % gel 00 times Medical daily. Branch Apply 4 g qid lidocaine 5 2022-0 Yes [id number] Apply 2g [facility] % ointment 2-14 [id number] to ity of 00:00: affected [place] 00 areas BID Medical PRN Branch Diclofenac 2022-0 Yes [id number] Apply to [facility] Sodium 2-14 [id number] area(s) 4 ity of (VOLTAREN) 00:00: (four) [place] 1 % gel 00 times Medical daily. Branch Apply 4 g qid lidocaine 5 2022-0 Yes [id number] Apply 2g [facility] % ointment 2-14 [id number] to ity of 00:00: affected [place] 00 areas BID Medical PRN Branch Diclofenac 2022-0 Yes [id number] Apply to [facility] Sodium 2-14 [id number] area(s) 4 ity of (VOLTAREN) 00:00: (four) [place] 1 % gel 00 times Medical daily. Branch Apply 4 g qid lidocaine 5 2022-0 Yes [id number] Apply 2g [facility] % ointment 2-14 [id number] to ity of 00:00: affected [place] 00 areas BID Medical PRN Branch Diclofenac 2022-0 Yes [id number] Apply to [facility] Sodium 2-14 [id number] area(s) 4 ity of (VOLTAREN) 00:00: (four) [place] 1 % gel 00 times Medical daily. Branch Apply 4 g qid lidocaine 5 2022-0 Yes [id number] Apply 2g [facility] % ointment 2-14 [id number] to ity of 00:00: affected [place] 00 areas BID Medical PRN Branch Diclofenac 2022-0 Yes [id number] Apply to [facility] Sodium 2-14 [id number] area(s) 4 ity of (VOLTAREN) 00:00: (four) [place] 1 % gel 00 times Medical daily. Branch Apply 4 g qid lidocaine 5 2022-0 Yes [id number] Apply 2g [facility] % ointment 2-14 [id number] to ity of 00:00: affected [place] 00 areas BID Medical PRN Branch Diclofenac 2022-0 Yes [id number] Apply to [facility] Sodium 2-14 [id number] area(s) 4 ity of (VOLTAREN) 00:00: (four) [place] 1 % gel 00 times Medical daily. Branch Apply 4 g qid lidocaine 5 2022-0 Yes [id number] Apply 2g [facility] % ointment 2-14 [id number] to ity of 00:00: affected [place] 00 areas BID Medical PRN Branch Diclofenac 2022-0 Yes [id number] Apply to [facility] Sodium 2-14 [id number] area(s) 4 ity of (VOLTAREN) 00:00: (four) [place] 1 % gel 00 times Medical daily. Branch Apply 4 g qid lidocaine 5 2022-0 Yes [id number] Apply 2g [facility] % ointment 2-14 [id number] to ity of 00:00: affected [place] 00 areas BID Medical PRN Branch Diclofenac 2022-0 Yes [id number] Apply to [facility] Sodium 2-14 [id number] area(s) 4 ity of (VOLTAREN) 00:00: (four) [place] 1 % gel 00 times Medical daily. Branch Apply 4 g qid lidocaine 5 2022-0 Yes [id number] Apply 2g [facility] % ointment 2-14 [id number] to ity of 00:00: affected [place] 00 areas BID Medical PRN Branch Diclofenac 2022-0 Yes [id number] Apply to [facility] Sodium 2-14 [id number] area(s) 4 ity of (VOLTAREN) 00:00: (four) [place] 1 % gel 00 times Medical daily. Branch Apply 4 g qid lidocaine 5 2022-0 Yes [id number] Apply 2g [facility] % ointment 2-14 [id number] to ity of 00:00: affected [place] 00 areas BID Medical PRN Branch Diclofenac 2022-0 Yes [id number] Apply to [facility] Sodium 2-14 [id number] area(s) 4 ity of (VOLTAREN) 00:00: (four) [place] 1 % gel 00 times Medical daily. Branch Apply 4 g qid lidocaine 5 2022-0 Yes [id number] Apply 2g [facility] % ointment 2-14 [id number] to ity of 00:00: affected [place] 00 areas BID Medical PRN Branch Diclofenac 2022-0 Yes [id number] Apply to [facility] Sodium 2-14 [id number] area(s) 4 ity of (VOLTAREN) 00:00: (four) [place] 1 % gel 00 times Medical daily. Branch Apply 4 g qid lidocaine 5 2022-0 Yes [id number] Apply 2g [facility] % ointment 2-14 [id number] to ity of 00:00: affected [place] 00 areas BID Medical PRN Branch Diclofenac 2022-0 Yes [id number] Apply to [facility] Sodium 2-14 [id number] area(s) 4 ity of (VOLTAREN) 00:00: (four) [place] 1 % gel 00 times Medical daily. Branch Apply 4 g qid lidocaine 5 3-0 Yes [id number] Apply 2g [facility] % ointment 2-14 [id number] to ity of 00:00: affected [place] 00 areas BID Medical PRN Branch Diclofenac 2022-0 Yes [id number] Apply to [facility] Sodium 2-14 [id number] area(s) 4 ity of (VOLTAREN) 00:00: (four) [place] 1 % gel 00 times Medical daily. Branch Apply 4 g qid lidocaine 5 2022-0 Yes [id number] Apply 2g [facility] % ointment 2-14 [id number] to ity of 00:00: affected [place] 00 areas BID Medical PRN Branch Diclofenac 2022-0 Yes [id number] Apply to [facility] Sodium 2-14 [id number] area(s) 4 ity of (VOLTAREN) 00:00: (four) [place] 1 % gel 00 times Medical daily. Branch Apply 4 g qid lidocaine 5 2022-0 Yes [id number] Apply 2g [facility] % ointment 2-14 [id number] to ity of 00:00: affected [place] 00 areas BID Medical PRN Branch Diclofenac 2022-0 Yes [id number] Apply to [facility] Sodium 2-14 [id number] area(s) 4 ity of (VOLTAREN) 00:00: (four) [place] 1 % gel 00 times Medical daily. Branch Apply 4 g qid lidocaine 5 3-0 Yes [id number] Apply 2g [facility] % ointment 2-14 [id number] to ity of 00:00: affected [place] 00 areas BID Medical PRN Branch Diclofenac 2022-0 Yes [id number] Apply to [facility] Sodium 2-14 [id number] area(s) 4 ity of (VOLTAREN) 00:00: (four) [place] 1 % gel 00 times Medical daily. Branch Apply 4 g qid lidocaine 5 3-0 Yes [id number] Apply 2g [facility] % ointment 2-14 [id number] to ity of 00:00: affected [place] 00 areas BID Medical PRN Branch Diclofenac 2022-0 Yes [id number] Apply to [facility] Sodium 2-14 [id number] area(s) 4 ity of (VOLTAREN) 00:00: (four) [place] 1 % gel 00 times Medical daily. Branch Apply 4 g qid lidocaine 5 2022-0 Yes [id number] Apply 2g [facility] % ointment 2-14 [id number] to ity of 00:00: affected [place] 00 areas BID Medical PRN Branch Diclofenac 2022-0 Yes [id number] Apply to [facility] Sodium 2-14 [id number] area(s) 4 ity of (VOLTAREN) 00:00: (four) [place] 1 % gel 00 times Medical daily. Branch Apply 4 g qid lidocaine 5 2022-0 Yes [id number] Apply 2g [facility] % ointment 2-14 [id number] to ity of 00:00: affected [place] 00 areas BID Medical PRN Branch Diclofenac 2022-0 Yes [id number] Apply to [facility] Sodium 2-14 [id number] area(s) 4 ity of (VOLTAREN) 00:00: (four) [place] 1 % gel 00 times Medical daily. Branch Apply 4 g qid lidocaine 5 2022-0 Yes [id number] Apply 2g [facility] % ointment 2-14 [id number] to ity of 00:00: affected [place] 00 areas BID Medical PRN Branch Diclofenac 2022-0 Yes [id number] Apply to [facility] Sodium 2-14 [id number] area(s) 4 ity of (VOLTAREN) 00:00: (four) [place] 1 % gel 00 times Medical daily. Branch Apply 4 g qid lidocaine 5 2022-0 Yes [id number] Apply 2g [facility] % ointment 2-14 [id number] to ity of 00:00: affected [place] 00 areas BID Medical PRN Branch Diclofenac 2022-0 Yes [id number] Apply to [facility] Sodium 2-14 [id number] area(s) 4 ity of (VOLTAREN) 00:00: (four) [place] 1 % gel 00 times Medical daily. Branch Apply 4 g qid lidocaine 5 2022-0 Yes [id number] Apply 2g [facility] % ointment 2-14 [id number] to ity of 00:00: affected [place] 00 areas BID Medical PRN Branch Diclofenac 2022-0 Yes [id number] Apply to [facility] Sodium 2-14 [id number] area(s) 4 ity of (VOLTAREN) 00:00: (four) [place] 1 % gel 00 times Medical daily. Branch Apply 4 g qid lidocaine 5 2022-0 Yes [id number] Apply 2g [facility] % ointment 2-14 [id number] to ity of 00:00: affected [place] 00 areas BID Medical PRN Branch Diclofenac 2022-0 Yes [id number] Apply to [facility] Sodium 2-14 [id number] area(s) 4 ity of (VOLTAREN) 00:00: (four) [place] 1 % gel 00 times Medical daily. Branch Apply 4 g qid lidocaine 5 2022-0 Yes [id number] Apply 2g [facility] % ointment 2-14 [id number] to ity of 00:00: affected [place] 00 areas BID Medical PRN Branch Diclofenac 2022-0 Yes [id number] Apply to [facility] Sodium 2-14 [id number] area(s) 4 ity of (VOLTAREN) 00:00: (four) [place] 1 % gel 00 times Medical daily. Branch Apply 4 g qid lidocaine 5 2022-0 Yes [id number] Apply 2g [facility] % ointment 2-14 [id number] to ity of 00:00: affected [place] 00 areas BID Medical PRN Branch Diclofenac 0 Yes [id number] Apply to [facility] Sodium 2-14 [id number] area(s) 4 ity of (VOLTAREN) 00:00: (four) [place] 1 % gel 00 times Medical daily. Branch Apply 4 g qid lidocaine 5 2022-0 Yes [id number] Apply 2g [facility] % ointment 2-14 [id number] to ity of 00:00: affected [place] 00 areas BID Medical PRN Branch tiZANidine 2022- No [id number] 2mg Take 1 [facility] 2 mg tablet 07-06-03 [id number] tablet by ity of 00:00: 00:00 mouth [place] 00 :00 every 8 Medical (eight) Branch hours as needed (muscle spasms). Nitrofurant 2022- No [id number] 100mg Take 1 [facility] oin&Nit. 07-01 capsule by ity of [place] 00:00: 05:59 mouth in [place] (MACROBID) 00 :00 the Medical 100 mg morning Branch capsule and 1 capsule in the evening. Do all this for 7 days. Nitrofurant 2022- No [id number] 100mg Take 1 [facility] oin&Nit. 07-01 capsule by ity of [place] 00:00: 05:59 mouth in [place] (MACROBID) 00 :00 the Medical 100 mg morning Branch capsule and 1 capsule in the evening. Do all this for 7 days. Nitrofurant 3-0 2023- No [id number] 100mg Take 1 [facility] oin&Nit. 07-01 capsule by ity of [place] 00:00: 05:59 mouth in [place] (MACROBID) 00 :00 the Medical 100 mg morning Branch capsule and 1 capsule in the evening. Do all this for 7 days. Nitrofurant 3-0 2023- No [id number] 100mg Take 1 [facility] oin&Nit. 07-01 capsule by ity of [place] 00:00: 05:59 mouth in [place] (MACROBID) 00 :00 the Medical 100 mg morning Branch capsule and 1 capsule in the evening. Do all this for 7 days. Nitrofurant 3-0 2023- No [id number] 100mg Take 1 [facility] oin&Nit. 07-01 capsule by ity of [place] 00:00: 05:59 mouth in [place] (MACROBID) 00 :00 the Medical 100 mg morning Branch capsule and 1 capsule in the evening. Do all this for 7 days. pantoprazol 3-0 Yes 20mg Take 20 mg [facility] e 20 mg EC 2-06 by mouth ity o f tablet 08:54: daily. [address] pantoprazol 3-0 Yes 20mg Take 20 mg [facility] e 20 mg EC 2-06 by mouth ity o f tablet 08:54: daily. [address] pantoprazol 3-0 Yes 20mg Take 20 mg [facility] e 20 mg EC 2-06 by mouth ity o f tablet 08:54: daily. [address] pantoprazol 3-0 Yes 20mg Take 20 mg [facility] e 20 mg EC 2-06 by mouth ity o f tablet 08:54: daily. [address] pantoprazol 3-0 Yes 20mg Take 20 mg [facility] e 20 mg EC 2-06 by mouth ity o f tablet 08:54: daily. [address] pantoprazol 2023-0 Yes 20mg Take 20 mg [facility] e 20 mg EC 2-06 by mouth ity o f tablet 08:54: daily. [address] pantoprazol 3-0 Yes 20mg Take 20 mg [facility] e 20 mg EC 2-06 by mouth ity o f tablet 08:54: daily. [address] pantoprazol 2022-0 Yes 20mg Take 20 mg [facility] e 20 mg EC 2-06 by mouth ity o f tablet 08:54: daily. [address] pantoprazol 2022-0 Yes 20mg Take 20 mg [facility] e 20 mg EC 2-06 by mouth ity o f tablet 08:54: daily. [address] pantoprazol 2022-0 Yes 20mg Take 20 mg [facility] e 20 mg EC 2-06 by mouth ity o f tablet 08:54: daily. [address] pantoprazol 2022-0 Yes 20mg Take 20 mg [facility] e 20 mg EC 2-06 by mouth ity o f tablet 08:54: daily. [address] pantoprazol 2022-0 Yes 20mg Take 20 mg [facility] e 20 mg EC 2-06 by mouth ity o f tablet 08:54: daily. [address] pantoprazol 2022-0 Yes 20mg Take 20 mg [facility] e 20 mg EC 2-06 by mouth ity o f tablet 08:54: daily. [address] pantoprazol 0 Yes 20mg Take 20 mg [facility] e 20 mg EC 2-06 by mouth ity o f tablet 08:54: daily. [address] estradioL 2022-0 Yes [id number] Apply 1g [facility] (ESTRACE) 2-06 vaginally ity o f 0.01 % (0.1 00:00: at bedtime [place] mg/gram) 00 every Medical vaginal night for Branch cream 2 weeks and then apply 1g vaginally at bedtime 2 times per week estradioL 2022-0 Yes [id number] Apply 1g [facility] (ESTRACE) 2-06 vaginally ity o f 0.01 % (0.1 00:00: at bedtime [place] mg/gram) 00 every Medical vaginal night for Branch cream 2 weeks and then apply 1g vaginally at bedtime 2 times per week estradioL 2022-0 Yes [id number] Apply 1g [facility] (ESTRACE) 2-06 vaginally ity o f 0.01 % (0.1 00:00: at bedtime [place] mg/gram) 00 every Medical vaginal night for Branch cream 2 weeks and then apply 1g vaginally at bedtime 2 times per week estradioL 2022-0 Yes [id number] Apply 1g [facility] (ESTRACE) 2-06 vaginally ity o f 0.01 % (0.1 00:00: at bedtime [place] mg/gram) 00 every Medical vaginal night for Branch cream 2 weeks and then apply 1g vaginally at bedtime 2 times per week estradioL 2022-0 Yes [id number] Apply 1g [facility] (ESTRACE) 2-06 vaginally ity o f 0.01 % (0.1 00:00: at bedtime [place] mg/gram) 00 every Medical vaginal night for Branch cream 2 weeks and then apply 1g vaginally at bedtime 2 times per week estradioL 2022-0 Yes [id number] Apply 1g [facility] (ESTRACE) 2-06 vaginally ity o f 0.01 % (0.1 00:00: at bedtime [place] mg/gram) 00 every Medical vaginal night for Branch cream 2 weeks and then apply 1g vaginally at bedtime 2 times per week estradioL 2022-0 Yes [id number] Apply 1g [facility] (ESTRACE) 2-06 vaginally ity o f 0.01 % (0.1 00:00: at bedtime [place] mg/gram) 00 every Medical vaginal night for Branch cream 2 weeks and then apply 1g vaginally at bedtime 2 times per week estradioL 2022-0 Yes [id number] Apply 1g [facility] (ESTRACE) 2-06 vaginally ity o f 0.01 % (0.1 00:00: at bedtime [place] mg/gram) 00 every Medical vaginal night for Branch cream 2 weeks and then apply 1g vaginally at bedtime 2 times per week estradioL 2022-0 Yes [id number] Apply 1g [facility] (ESTRACE) 2-06 vaginally ity o f 0.01 % (0.1 00:00: at bedtime [place] mg/gram) 00 every Medical vaginal night for Branch cream 2 weeks and then apply 1g vaginally at bedtime 2 times per week estradioL 2022-0 Yes [id number] Apply 1g [facility] (ESTRACE) 2-06 vaginally ity o f 0.01 % (0.1 00:00: at bedtime [place] mg/gram) 00 every Medical vaginal night for Branch cream 2 weeks and then apply 1g vaginally at bedtime 2 times per week estradioL 2022-0 Yes [id number] Apply 1g [facility] (ESTRACE) 2-06 vaginally ity o f 0.01 % (0.1 00:00: at bedtime [place] mg/gram) 00 every Medical vaginal night for Branch cream 2 weeks and then apply 1g vaginally at bedtime 2 times per week estradioL 2022-0 Yes [id number] Apply 1g [facility] (ESTRACE) 2-06 vaginally ity o f 0.01 % (0.1 00:00: at bedtime [place] mg/gram) 00 every Medical vaginal night for Branch cream 2 weeks and then apply 1g vaginally at bedtime 2 times per week estradioL 2022-0 Yes [id number] Apply 1g [facility] (ESTRACE) 2-06 vaginally ity o f 0.01 % (0.1 00:00: at bedtime [place] mg/gram) 00 every Medical vaginal night for Branch cream 2 weeks and then apply 1g vaginally at bedtime 2 times per week estradioL 0 Yes [id number] Apply 1g [facility] (ESTRACE) 2-06 vaginally ity o f 0.01 % (0.1 00:00: at bedtime [place] mg/gram) 00 every Medical vaginal night for Branch cream 2 weeks and then apply 1g vaginally at bedtime 2 times per week estradioL 2022-0 Yes [id number] Apply 1g [facility] (ESTRACE) 2-06 vaginally ity o f 0.01 % (0.1 00:00: at bedtime [place] mg/gram) 00 every Medical vaginal night for Branch cream 2 weeks and then apply 1g vaginally at bedtime 2 times per week estradioL 2022-0 Yes [id number] Apply 1g [facility] (ESTRACE) 2-06 vaginally ity o f 0.01 % (0.1 00:00: at bedtime [place] mg/gram) 00 every Medical vaginal night for Branch cream 2 weeks and then apply 1g vaginally at bedtime 2 times per week estradioL 2022-0 Yes [id number] Apply 1g [facility] (ESTRACE) 2-06 vaginally ity o f 0.01 % (0.1 00:00: at bedtime [place] mg/gram) 00 every Medical vaginal night for Branch cream 2 weeks and then apply 1g vaginally at bedtime 2 times per week estradioL 2022-0 Yes [id number] Apply 1g [facility] (ESTRACE) 2-06 vaginally ity o f 0.01 % (0.1 00:00: at bedtime [place] mg/gram) 00 every Medical vaginal night for Branch cream 2 weeks and then apply 1g vaginally at bedtime 2 times per week estradioL 2022-0 Yes [id number] Apply 1g [facility] (ESTRACE) 2-06 vaginally ity o f 0.01 % (0.1 00:00: at bedtime [place] mg/gram) 00 every Medical vaginal night for Branch cream 2 weeks and then apply 1g vaginally at bedtime 2 times per week estradioL 2022-0 Yes [id number] Apply 1g [facility] (ESTRACE) 2-06 vaginally ity o f 0.01 % (0.1 00:00: at bedtime [place] mg/gram) 00 every Medical vaginal night for Branch cream 2 weeks and then apply 1g vaginally at bedtime 2 times per week estradioL 2022-0 Yes [id number] Apply 1g [facility] (ESTRACE) 2-06 vaginally ity o f 0.01 % (0.1 00:00: at bedtime [place] mg/gram) 00 every Medical vaginal night for Branch cream 2 weeks and then apply 1g vaginally at bedtime 2 times per week estradioL 2022-0 Yes [id number] Apply 1g [facility] (ESTRACE) 2-06 vaginally ity o f 0.01 % (0.1 00:00: at bedtime [place] mg/gram) 00 every Medical vaginal night for Branch cream 2 weeks and then apply 1g vaginally at bedtime 2 times per week estradioL 2022-0 Yes [id number] Apply 1g [facility] (ESTRACE) 2-06 vaginally ity o f 0.01 % (0.1 00:00: at bedtime [place] mg/gram) 00 every Medical vaginal night for Branch cream 2 weeks and then apply 1g vaginally at bedtime 2 times per week estradioL 2022-0 Yes [id number] Apply 1g [facility] (ESTRACE) 2-06 vaginally ity o f 0.01 % (0.1 00:00: at bedtime [place] mg/gram) 00 every Medical vaginal night for Branch cream 2 weeks and then apply 1g vaginally at bedtime 2 times per week estradioL 2022-0 Yes [id number] Apply 1g [facility] (ESTRACE) 2-06 vaginally ity o f 0.01 % (0.1 00:00: at bedtime [place] mg/gram) 00 every Medical vaginal night for Branch cream 2 weeks and then apply 1g vaginally at bedtime 2 times per week estradioL 2022-0 Yes [id number] Apply 1g [facility] (ESTRACE) 2-06 vaginally ity o f 0.01 % (0.1 00:00: at bedtime [place] mg/gram) 00 every Medical vaginal night for Branch cream 2 weeks and then apply 1g vaginally at bedtime 2 times per week estradioL 2022-0 Yes [id number] Apply 1g [facility] (ESTRACE) 2-06 vaginally ity o f 0.01 % (0.1 00:00: at bedtime [place] mg/gram) 00 every Medical vaginal night for Branch cream 2 weeks and then apply 1g vaginally at bedtime 2 times per week estradioL 2022-0 Yes [id number] Apply 1g [facility] (ESTRACE) 2-06 vaginally ity o f 0.01 % (0.1 00:00: at bedtime [place] mg/gram) 00 every Medical vaginal night for Branch cream 2 weeks and then apply 1g vaginally at bedtime 2 times per week estradioL 2022-0 Yes [id number] Apply 1g [facility] (ESTRACE) 2-06 vaginally ity o f 0.01 % (0.1 00:00: at bedtime [place] mg/gram) 00 every Medical vaginal night for Branch cream 2 weeks and then apply 1g vaginally at bedtime 2 times per week estradioL 2022-0 Yes [id number] Apply 1g [facility] (ESTRACE) 2-06 vaginally ity o f 0.01 % (0.1 00:00: at bedtime [place] mg/gram) 00 every Medical vaginal night for Branch cream 2 weeks and then apply 1g vaginally at bedtime 2 times per week estradioL 2022-0 Yes [id number] Apply 1g [facility] (ESTRACE) 2-06 vaginally ity o f 0.01 % (0.1 00:00: at bedtime [place] mg/gram) 00 every Medical vaginal night for Branch cream 2 weeks and then apply 1g vaginally at bedtime 2 times per week estradioL 2022-0 Yes [id number] Apply 1g [facility] (ESTRACE) 2-06 vaginally ity o f 0.01 % (0.1 00:00: at bedtime [place] mg/gram) 00 every Medical vaginal night for Branch cream 2 weeks and then apply 1g vaginally at bedtime 2 times per week estradioL 2022-0 Yes [id number] Apply 1g [facility] (ESTRACE) 2-06 vaginally ity o f 0.01 % (0.1 00:00: at bedtime [place] mg/gram) 00 every Medical vaginal night for Branch cream 2 weeks and then apply 1g vaginally at bedtime 2 times per week estradioL 2022-0 Yes [id number] Apply 1g [facility] (ESTRACE) 2-06 vaginally ity o f 0.01 % (0.1 00:00: at bedtime [place] mg/gram) 00 every Medical vaginal night for Branch cream 2 weeks and then apply 1g vaginally at bedtime 2 times per week estradioL 2022-0 Yes [id number] Apply 1g [facility] (ESTRACE) 2-06 vaginally ity o f 0.01 % (0.1 00:00: at bedtime [place] mg/gram) 00 every Medical vaginal night for Branch cream 2 weeks and then apply 1g vaginally at bedtime 2 times per week estradioL 2022-0 Yes [id number] Apply 1g [facility] (ESTRACE) 2-06 vaginally ity o f 0.01 % (0.1 00:00: at bedtime [place] mg/gram) 00 every Medical vaginal night for Branch cream 2 weeks and then apply 1g vaginally at bedtime 2 times per week estradioL 2022-0 Yes [id number] Apply 1g [facility] (ESTRACE) 2-06 vaginally ity o f 0.01 % (0.1 00:00: at bedtime [place] mg/gram) 00 every Medical vaginal night for Branch cream 2 weeks and then apply 1g vaginally at bedtime 2 times per week estradioL 2022-0 Yes [id number] Apply 1g [facility] (ESTRACE) 2-06 vaginally ity o f 0.01 % (0.1 00:00: at bedtime [place] mg/gram) 00 every Medical vaginal night for Branch cream 2 weeks and then apply 1g vaginally at bedtime 2 times per week estradioL 2022-0 Yes [id number] Apply 1g [facility] (ESTRACE) 2-06 vaginally ity o f 0.01 % (0.1 00:00: at bedtime [place] mg/gram) 00 every Medical vaginal night for Branch cream 2 weeks and then apply 1g vaginally at bedtime 2 times per week estradioL 2022-0 Yes [id number] Apply 1g [facility] (ESTRACE) 2-06 vaginally ity o f 0.01 % (0.1 00:00: at bedtime [place] mg/gram) 00 every Medical vaginal night for Branch cream 2 weeks and then apply 1g vaginally at bedtime 2 times per week estradioL 2022-0 Yes [id number] Apply 1g [facility] (ESTRACE) 2-06 vaginally ity o f 0.01 % (0.1 00:00: at bedtime [place] mg/gram) 00 every Medical vaginal night for Branch cream 2 weeks and then apply 1g vaginally at bedtime 2 times per week estradioL 2022-0 Yes [id number] Apply 1g [facility] (ESTRACE) 2-06 vaginally ity o f 0.01 % (0.1 00:00: at bedtime [place] mg/gram) 00 every Medical vaginal night for Branch cream 2 weeks and then apply 1g vaginally at bedtime 2 times per week semaglutide 2022-0 Yes [id number] 1mg inject 1 [facility] (OZEMPIC) 1 1-31 mg under ity of mg/dose (4 00:00: the skin [place] mg/3 mL) 00 weekly. [facility] semaglutide 2022-0 Yes [id number] 1mg inject 1 [facility] (OZEMPIC) 1 1-31 mg under ity of mg/dose (4 00:00: the skin [place] mg/3 mL) 00 weekly. [facility] semaglutide 2022-0 Yes [id number] 1mg inject 1 [facility] (OZEMPIC) 1 1-31 mg under ity of mg/dose (4 00:00: the skin [place] mg/3 mL) 00 weekly. [facility] semaglutide 2022-0 Yes [id number] 1mg inject 1 [facility] (OZEMPIC) 1 1-31 mg under ity of mg/dose (4 00:00: the skin [place] mg/3 mL) 00 weekly. [facility] semaglutide 2022-0 Yes [id number] 1mg inject 1 [facility] (OZEMPIC) 1 1-31 mg under ity of mg/dose (4 00:00: the skin [place] mg/3 mL) 00 weekly. [facility] semaglutide 2022-0 Yes [id number] 1mg inject 1 [facility] (OZEMPIC) 1 1-31 mg under ity of mg/dose (4 00:00: the skin [place] mg/3 mL) 00 weekly. [facility] semaglutide 2022-0 Yes [id number] 1mg inject 1 [facility] (OZEMPIC) 1 1-31 mg under ity of mg/dose (4 00:00: the skin [place] mg/3 mL) 00 weekly. [facility] semaglutide 2022-0 Yes [id number] 1mg inject 1 [facility] (OZEMPIC) 1 1-31 mg under ity of mg/dose (4 00:00: the skin [place] mg/3 mL) 00 weekly. [facility] semaglutide 2022-0 Yes [id number] 1mg inject 1 [facility] (OZEMPIC) 1 1-31 mg under ity of mg/dose (4 00:00: the skin [place] mg/3 mL) 00 weekly. [facility] semaglutide 3-0 Yes [id number] 1mg inject 1 [facility] (OZEMPIC) 1 1-31 mg under ity of mg/dose (4 00:00: the skin [place] mg/3 mL) 00 weekly. [facility] semaglutide 2022-0 Yes [id number] 1mg inject 1 [facility] (OZEMPIC) 1 1-31 mg under ity of mg/dose (4 00:00: the skin [place] mg/3 mL) 00 weekly. [facility] semaglutide 2022-0 Yes [id number] 1mg inject 1 [facility] (OZEMPIC) 1 1-31 mg under ity of mg/dose (4 00:00: the skin [place] mg/3 mL) 00 weekly. [facility] semaglutide 2022-0 Yes [id number] 1mg inject 1 [facility] (OZEMPIC) 1 1-31 mg under ity of mg/dose (4 00:00: the skin [place] mg/3 mL) 00 weekly. [facility] semaglutide 2022-0 Yes [id number] 1mg inject 1 [facility] (OZEMPIC) 1 1-31 mg under ity of mg/dose (4 00:00: the skin [place] mg/3 mL) 00 weekly. [facility] semaglutide 3-0 Yes [id number] 1mg inject 1 [facility] (OZEMPIC) 1 1-31 mg under ity of mg/dose (4 00:00: the skin [place] mg/3 mL) 00 weekly. [facility] semaglutide 3-0 Yes [id number] 1mg inject 1 [facility] (OZEMPIC) 1 1-31 mg under ity of mg/dose (4 00:00: the skin [place] mg/3 mL) 00 weekly. [facility] semaglutide 2022-0 Yes [id number] 1mg inject 1 [facility] (OZEMPIC) 1 1-31 mg under ity of mg/dose (4 00:00: the skin [place] mg/3 mL) 00 weekly. [facility] semaglutide 2022-0 Yes [id number] 1mg inject 1 [facility] (OZEMPIC) 1 1-31 mg under ity of mg/dose (4 00:00: the skin [place] mg/3 mL) 00 weekly. [facility] semaglutide 3-0 Yes [id number] 1mg inject 1 [facility] (OZEMPIC) 1 1-31 mg under ity of mg/dose (4 00:00: the skin [place] mg/3 mL) 00 weekly. [facility] semaglutide 2022-0 Yes [id number] 1mg inject 1 [facility] (OZEMPIC) 1 1-31 mg under ity of mg/dose (4 00:00: the skin [place] mg/3 mL) 00 weekly. [facility] semaglutide 2022-0 Yes [id number] 1mg inject 1 [facility] (OZEMPIC) 1 1-31 mg under ity of mg/dose (4 00:00: the skin [place] mg/3 mL) 00 weekly. [facility] semaglutide 2022-0 Yes [id number] 1mg inject 1 [facility] (OZEMPIC) 1 1-31 mg under ity of mg/dose (4 00:00: the skin [place] mg/3 mL) 00 weekly. [facility] semaglutide 2022-0 Yes [id number] 1mg inject 1 [facility] (OZEMPIC) 1 1-31 mg under ity of mg/dose (4 00:00: the skin [place] mg/3 mL) 00 weekly. [facility] semaglutide 3-0 Yes [id number] 1mg inject 1 [facility] (OZEMPIC) 1 1-31 mg under ity of mg/dose (4 00:00: the skin [place] mg/3 mL) 00 weekly. [facility] semaglutide 3-0 Yes [id number] 1mg inject 1 [facility] (OZEMPIC) 1 1-31 mg under ity of mg/dose (4 00:00: the skin [place] mg/3 mL) 00 weekly. [facility] semaglutide Yes [id number] 1mg inject 1 [facility] (OZEMPIC) 1 1-31 mg under ity of mg/dose (4 00:00: the skin [place] mg/3 mL) 00 weekly. [facility] semaglutide Yes [id number] 1mg inject 1 [facility] (OZEMPIC) 1 1-31 mg under ity of mg/dose (4 00:00: the skin [place] mg/3 mL) 00 weekly. [facility] semaglutide Yes [id number] 1mg inject 1 [facility] (OZEMPIC) 1 1-31 mg under ity of mg/dose (4 00:00: the skin [place] mg/3 mL) 00 weekly. [facility] semaglutide Yes [id number] 1mg inject 1 [facility] (OZEMPIC) 1 1-31 mg under ity of mg/dose (4 00:00: the skin [place] mg/3 mL) 00 weekly. [facility] semaglutide 2022- No [id number] 1mg inject 1 [facility] (OZEMPIC) 1 1-31 05-23 mg under ity of mg/dose (4 00:00: 00:00 the skin [place] mg/3 mL) 00 :00 weekly. [facility] semaglutide 2022- No [id number] 1mg inject 1 [facility] (OZEMPIC) 1 1-31 05-23 mg under ity of mg/dose (4 00:00: 00:00 the skin [place] mg/3 mL) 00 :00 weekly. [facility] semaglutide 2022- No [id number] 1mg inject 1 [facility] (OZEMPIC) 1 1-31 05-23 mg under ity of mg/dose (4 00:00: 00:00 the skin [place] mg/3 mL) 00 :00 weekly. [facility] AMLODIPINE 0 Yes [id number] 2.5mg TAKE 1 [facility] 2.5 mg 1-10 TABLET BY ity of tablet 00:00: MOUTH AT [place] 00 BEDTIME [facility] AMLODIPINE 2022-0 Yes [id number] 2.5mg TAKE 1 [facility] 2.5 mg 1-10 TABLET BY ity of tablet 00:00: MOUTH AT [place] [facility] AMLODIPINE 2022-0 Yes [id number] 2.5mg TAKE 1 [facility] 2.5 mg 1-10 TABLET BY ity of tablet 00:00: MOUTH AT [place] [facility] AMLODIPINE 2022-0 Yes [id number] 2.5mg TAKE 1 [facility] 2.5 mg 1-10 TABLET BY ity of tablet 00:00: MOUTH AT [address] AMLODIPINE 2022-0 Yes [id number] 2.5mg TAKE 1 [facility] 2.5 mg 1-10 TABLET BY ity of tablet 00:00: MOUTH AT [place] [facility] AMLODIPINE 2022-0 Yes [id number] 2.5mg TAKE 1 [facility] 2.5 mg 1-10 TABLET BY ity of tablet 00:00: MOUTH AT [address] AMLODIPINE 2022-0 Yes [id number] 2.5mg TAKE 1 [facility] 2.5 mg 1-10 TABLET BY ity of tablet 00:00: MOUTH AT [address] AMLODIPINE 2022-0 Yes [id number] 2.5mg TAKE 1 [facility] 2.5 mg 1-10 TABLET BY ity of tablet 00:00: MOUTH AT [place] [facility] AMLODIPINE 0 Yes [id number] 2.5mg TAKE 1 [facility] 2.5 mg 1-10 TABLET BY ity of tablet 00:00: MOUTH AT [address] AMLODIPINE 2022-0 Yes [id number] 2.5mg TAKE 1 [facility] 2.5 mg 1-10 TABLET BY ity of tablet 00:00: MOUTH AT [address] AMLODIPINE 2022-0 Yes [id number] 2.5mg TAKE 1 [facility] 2.5 mg 1-10 TABLET BY ity of tablet 00:00: MOUTH AT [address] AMLODIPINE 2022-0 Yes [id number] 2.5mg TAKE 1 [facility] 2.5 mg 1-10 TABLET BY ity of tablet 00:00: MOUTH AT [address] AMLODIPINE 2022-0 Yes [id number] 2.5mg TAKE 1 [facility] 2.5 mg 1-10 TABLET BY ity of tablet 00:00: MOUTH AT [address] AMLODIPINE 2022-0 Yes [id number] 2.5mg TAKE 1 [facility] 2.5 mg 1-10 TABLET BY ity of tablet 00:00: [facility] AT [place] [facility] AMLODIPINE 0 Yes [id number] 2.5mg TAKE 1 [facility] 2.5 mg 1-10 TABLET BY ity of tablet 00:00: MOUTH AT [place] 00 [facility] AMLODIPINE 2022-0 Yes [id number] 2.5mg TAKE 1 [facility] 2.5 mg 1-10 TABLET BY ity of tablet 00:00: MOUTH AT [place] [facility] AMLODIPINE 2022-0 Yes [id number] 2.5mg TAKE 1 [facility] 2.5 mg 1-10 TABLET BY ity of tablet 00:00: MOUTH AT [place] 00 [facility] AMLODIPINE 2022- No [id number] 2.5mg TAKE 1 [facility] 2.5 mg 1-10 03-07 TABLET BY ity of tablet 00:00: 00:00 MOUTH AT [place] 00 :00 [facility] AMLODIPINE 2022-2022- No [id number] 2.5mg TAKE 1 [facility] 2.5 mg 1-10 03-07 TABLET BY ity of tablet 00:00: 00:00 MOUTH AT [place] 00 :00 [facility] semaglutide Yes [id number] 1mg inject 1 [facility] (OZEMPIC) 1 1-04 mg under ity of mg/dose (4 00:00: the skin [place] mg/3 mL) 00 weekly. [facility] semaglutide Yes [id number] 1mg inject 1 [facility] (OZEMPIC) 1 1-04 mg under ity of mg/dose (4 00:00: the skin [place] mg/3 mL) 00 weekly. [facility] semaglutide Yes [id number] 1mg inject 1 [facility] (OZEMPIC) 1 1-04 mg under ity of mg/dose (4 00:00: the skin [place] mg/3 mL) 00 weekly. [facility] semaglutide Yes [id number] 1mg inject 1 [facility] (OZEMPIC) 1 1-04 mg under ity of mg/dose (4 00:00: the skin [place] mg/3 mL) 00 weekly. [facility] semaglutide 2022- No [id number] 1mg inject 1 [facility] (OZEMPIC) 1 1-04 01-31 mg under ity of mg/dose (4 00:00: 00:00 the skin [place] mg/3 mL) 00 :00 weekly. [facility] semaglutide 2022- No [id number] 1mg inject 1 [facility] (OZEMPIC) 1 1-04 01-04 mg under ity of mg/dose (4 00:00: 00:00 the skin [place] mg/3 mL) 00 :00 weekly. [facility] pantoprazol 2021-05 Yes 20mg Take 20 mg [facility] e 20 mg EC 0-26 by mouth ity o f tablet 09:05: daily. [address] pantoprazol 2021-05 Yes 20mg Take 20 mg [facility] e 20 mg EC 0-26 by mouth ity o f tablet 09:05: daily. [address] pantoprazol 2021-05 Yes 20mg Take 20 mg [facility] e 20 mg EC 0-26 by mouth ity o f tablet 09:05: daily. [address] pantoprazol 2021-05 Yes 20mg Take 20 mg [facility] e 20 mg EC 0-26 by mouth ity o f tablet 09:05: daily. [address] pantoprazol 2021-05 Yes 20mg Take 20 mg [facility] e 20 mg EC 0-26 by mouth ity o f tablet 09:05: daily. [address] pantoprazol 2021-05 Yes 20mg Take 20 mg [facility] e 20 mg EC 0-26 by mouth ity o f tablet 09:05: daily. [address] pantoprazol 2021-05 Yes 20mg Take 20 mg [facility] e 20 mg EC 0-26 by mouth ity o f tablet 09:05: daily. [address] pantoprazol 2021-05 Yes 20mg Take 20 mg [facility] e 20 mg EC 0-26 by mouth ity o f tablet 09:05: daily. [address] pantoprazol 2021-05 Yes 20mg Take 20 mg [facility] e 20 mg EC 0-26 by mouth ity o f tablet 09:05: daily. [address] pantoprazol 2021-05 Yes 20mg Take 20 mg [facility] e 20 mg EC 0-26 by mouth ity o f tablet 09:05: daily. [address] pantoprazol 2021-05 Yes 20mg Take 20 mg [facility] e 20 mg EC 0-26 by mouth ity o f tablet 09:05: daily. [address] pantoprazol 2021-05 Yes 20mg Take 20 mg [facility] e 20 mg EC 0-26 by mouth ity o f tablet 09:05: daily. [address] pantoprazol 2021-05 Yes 20mg Take 20 mg [facility] e 20 mg EC 0-26 by mouth ity o f tablet 09:05: daily. [address] [id number] IV 2021-05 Yes 1000mL at [...] ity o f toxin 14:44: 16:45 on [facility] [place] [facility] (BOTOX) 00 :53 03/11/22 Medical injection at [...] mouth ity o f tablet 10:12: daily. [address] pantoprazol 2021-05 Yes 20mg Take 20 mg [facility] e 20 mg EC 0-20 by mouth ity o f tablet 10:12: daily. [address] pantoprazol Yes 20mg Take 20 mg [facility] e 20 mg EC 9-27 by mouth ity o f tablet 16:48: daily. [address] pantoprazol Yes 20mg Take 20 mg [facility] e 20 mg EC 9-27 by mouth ity o f tablet 16:48: daily. [address] Nitrofurant 2021- No [id number] 100mg Take 1 [facility] oin&Nit. 02-15 capsule by ity of Macrocryst 00:00: 04:59 mouth at [place] (MACROBID) 00 :00 bedtime Medica l 100 mg for 6 Branch capsule doses. 3 days prior to procedure and 3 days after Nitrofurant 2021- No [id number] 100mg Take 1 [facility] oin&Nit. 02-15 capsule by ity of Macrocryst 00:00: 04:59 mouth at [place] (MACROBID) 00 :00 bedtime Medica l 100 mg for 6 Branch capsule doses. 3 days prior to procedure and 3 days after Nitrofurant 2021- No [id number] 100mg Take 1 [facility] oin&Nit. 02-15 capsule by ity of [place]ryst 00:00: 04:59 mouth at [place] (MACROBID) 00 :00 bedtime Medica l 100 mg for 6 Branch capsule doses. 3 days prior to procedure and 3 days after Nitrofurant 2021- No [id number] 100mg Take 1 [facility] oin&Nit. 02-15 10- capsule by ity of [place] 00:00: 04:59 mouth at [place] (MACROBID) 00 :00 bedtime Medica l 100 mg for 6 Branch capsule doses. 3 days prior to procedure and 3 days after Nitrofurant 2021- No [id number] 100mg Take 1 [facility] oin&Nit. 02-15- capsule by ity of [place] 00:00: 04:59 mouth at [place] (MACROBID) 00 :00 bedtime Medica l 100 mg for 6 [facility] capsule doses. 3 days prior to procedure and 3 days after semaglutide 2021-0 Yes [id number] 1mg inject 1 [facility] (OZEMPIC) 1 8-11 mg under ity of mg/dose (4 00:00: the skin [place] mg/3 mL) 00 weekly. [facility] semaglutide 0 Yes [id number] .25mg inject [facility] (OZEMPIC) 8-11 0.25 mg ity of 0.25 mg or 00:00: under the [place] 0.5 mg(2 00 skin Medical mg/1.5 mL) weekly. Branch PnIj Direction: Inject 0.25mg qWeek x 4 Weeks; then Inject 0.5mg qWeek x 4Weeks; then inject 1mg qWeek. semaglutide 2021-0 Yes [id number] 1mg inject 1 [facility] (OZEMPIC) 1 8-11 mg under ity of mg/dose (4 00:00: the skin [place] mg/3 mL) 00 weekly. [facility] semaglutide 0 Yes [id number] .25mg inject [facility] (OZEMPIC) 8-11 0.25 mg ity of 0.25 mg or 00:00: under the [place] 0.5 mg(2 00 skin Medical mg/1.5 mL) weekly. [facility] PnIj Direction: Inject 0.25mg qWeek x 4 Weeks; then Inject 0.5mg qWeek x 4Weeks; then inject 1mg qWeek. semaglutide Yes [id number] 1mg inject 1 [facility] (OZEMPIC) 1 8-11 mg under ity of mg/dose (4 00:00: the skin [place] mg/3 mL) 00 weekly. [facility] semaglutide 0 Yes [id number] .25mg inject [facility] (OZEMPIC) 8-11 0.25 mg ity of 0.25 mg or 00:00: under the [place] 0.5 mg(2 00 skin Medical mg/1.5 mL) weekly. [facility] PnIj Direction: Inject 0.25mg qWeek x 4 Weeks; then Inject 0.5mg qWeek x 4Weeks; then inject 1mg qWeek. semaglutide 2021-0 Yes [id number] 1mg inject 1 [facility] (OZEMPIC) 1 8-11 mg under ity of mg/dose (4 00:00: the skin [place] mg/3 mL) 00 weekly. [facility] semaglutide 0 Yes [id number] .25mg inject [facility] (OZEMPIC) 8-11 0.25 mg ity of 0.25 mg or 00:00: under the [place] 0.5 mg(2 00 skin Medical mg/1.5 mL) weekly. Branch PnIj Direction: Inject 0.25mg qWeek x 4 Weeks; then Inject 0.5mg qWeek x 4Weeks; then inject 1mg qWeek. semaglutide 2021-0 Yes [id number] 1mg inject 1 [facility] (OZEMPIC) 1 8-11 mg under ity of mg/dose (4 00:00: the skin [place] mg/3 mL) 00 weekly. [facility] semaglutide 0 Yes [id number] .25mg inject [facility] (OZEMPIC) 8-11 0.25 mg ity of 0.25 mg or 00:00: under the [place] 0.5 mg(2 00 skin Medical mg/1.5 mL) weekly. Branch PnIj Direction: Inject 0.25mg qWeek x 4 Weeks; then Inject 0.5mg qWeek x 4Weeks; then inject 1mg qWeek. semaglutide 0 Yes [id number] 1mg inject 1 [facility] (OZEMPIC) 1 8-11 mg under ity of mg/dose (4 00:00: the skin [place] mg/3 mL) 00 weekly. [facility] PnI[facility] semaglutide 2021-0 Yes [id number] .25mg inject [facility] (OZEMPIC) 8-11 0.25 mg ity of 0.25 mg or 00:00: under the [place] 0.5 mg(2 00 skin Medical mg/1.5 mL) weekly. Branch PnIj Direction: Inject 0.25mg qWeek x 4 Weeks; then Inject 0.5mg qWeek x 4Weeks; then inject 1mg qWeek. semaglutide 2021-0 Yes [id number] 1mg inject 1 [facility] (OZEMPIC) 1 8-11 mg under ity of mg/dose (4 00:00: the skin [place] mg/3 mL) 00 weekly. Medical Ij [facility] semaglutide Yes [id number] .25mg inject [facility] (OZEMPIC) 8-11 0.25 mg ity of 0.25 mg or 00:00: under the [place] 0.5 mg(2 00 skin Medical mg/1.5 mL) weekly. Branch PnIj Direction: Inject 0.25mg qWeek x 4 Weeks; then Inject 0.5mg qWeek x 4Weeks; then inject 1mg qWeek. semaglutide Yes [id number] 1mg inject 1 [facility] (OZEMPIC) 1 8-11 mg under ity of mg/dose (4 00:00: the skin [place] mg/3 mL) 00 weekly. Medical Ij [facility] semaglutide Yes [id number] .25mg inject [facility] (OZEMPIC) 8-11 0.25 mg ity of 0.25 mg or 00:00: under the [place] 0.5 mg(2 00 skin Medical mg/1.5 mL) weekly. Branch PnIj Direction: Inject 0.25mg qWeek x 4 Weeks; then Inject 0.5mg qWeek x 4Weeks; then inject 1mg qWeek. semaglutide Yes [id number] 1mg inject 1 [facility] (OZEMPIC) 1 8-11 mg under ity of mg/dose (4 00:00: the skin [place] mg/3 mL) 00 weekly. Medical Ij Branch semaglutide 0 Yes [id number] .25mg inject [facility] ([facility]) 8-11 0.25 mg ity of 0.25 mg or 00:00: under the [place] 0.5 mg(2 00 skin Medical mg/1.5 mL) weekly. Branch PnIj Direction: Inject 0.25mg qWeek x 4 Weeks; then Inject 0.5mg qWeek x 4Weeks; then inject 1mg qWeek. semaglutide Yes [id number] 1mg inject 1 [facility] ([facility]) 1 8-11 mg under ity of mg/dose (4 00:00: the skin [place] as mg/3 mL) 00 weekly. Medical [facility] Branch semaglutide 2021-0 Yes [id number] .25mg inject [facility] ([facility]ZEMPIC) 8-11 0.25 mg ity of 0.25 mg or 00:00: under the [place] 0.5 mg(2 00 skin Medical mg/1.5 mL) weekly. Branch PnIj Direction: Inject 0.25mg qWeek x 4 Weeks; then Inject 0.5mg qWeek x 4Weeks; then inject 1mg qWeek. semaglutide 2021-0 Yes [id number] 1mg inject 1 [facility] ([facility]ZEMPIC) 1 8-11 mg under ity of mg/dose (4 00:00: the skin [place] as mg/3 mL) 00 weekly. [facility] semaglutide 2021-0 Yes [id number] .25mg inject [facility] (OZEMPIC) 8-11 0.25 mg ity of 0.25 mg or 00:00: under the [place] 0.5 mg(2 00 skin Medical mg/1.5 mL) weekly. Branch PnIj Direction: Inject 0.25mg qWeek x 4 Weeks; then Inject 0.5mg qWeek x 4Weeks; then inject 1mg qWeek. semaglutide 2021-0 Yes [id number] 1mg inject 1 [facility] (OZEMPIC) 1 8-11 mg under ity of mg/dose (4 00:00: the skin [place] as mg/3 mL) 00 weekly. [facility] semaglutide 2021-0 Yes [id number] .25mg inject [facility] (OZEMPIC) 8-11 0.25 mg ity of 0.25 mg or 00:00: under the [place] 0.5 mg(2 00 skin Medical mg/1.5 mL) weekly. Branch PnIj Direction: Inject 0.25mg qWeek x 4 Weeks; then Inject 0.5mg qWeek x 4Weeks; then inject 1mg qWeek. semaglutide 2021-0 Yes [id number] 1mg inject 1 [facility] (OZEMPIC) 1 8-11 mg under ity of mg/dose (4 00:00: the skin [place] as mg/3 mL) 00 weekly. [facility] semaglutide 2021-0 Yes [id number] .25mg inject [facility] (OZEMPIC) 8-11 0.25 mg ity of 0.25 mg or 00:00: under the [place] 0.5 mg(2 00 skin Medical mg/1.5 mL) weekly. Branch PnIj Direction: Inject 0.25mg qWeek x 4 Weeks; then Inject 0.5mg qWeek x 4Weeks; then inject 1mg qWeek. semaglutide 2021-0 Yes [id number] 1mg inject 1 [facility] ([facility]ZEMPIC) 1 8-11 mg under ity of mg/dose (4 00:00: the skin [place] mg/3 mL) 00 weekly. Medical [facility] Branch semaglutide 2021-0 Yes [id number] .25mg inject [facility] (OZEMPIC) 8-11 0.25 mg ity of 0.25 mg or 00:00: under the [place] 0.5 mg(2 00 skin Medical mg/1.5 mL) weekly. Branch PnIj Direction: Inject 0.25mg qWeek x 4 Weeks; then Inject 0.5mg qWeek x 4Weeks; then inject 1mg qWeek. semaglutide 2021-0 Yes [id number] 1mg inject 1 [facility] ([facility]ZEMPIC) 1 8-11 mg under ity of mg/dose (4 00:00: the skin [place] mg/3 mL) 00 weekly. Medical [facility] Branch semaglutide 2021-0 Yes [id number] .25mg inject [facility] (OZEMPIC) 8-11 0.25 mg ity of 0.25 mg or 00:00: under the [place] 0.5 mg(2 00 skin Medical mg/1.5 mL) weekly. Branch PnIj Direction: Inject 0.25mg qWeek x 4 Weeks; then Inject 0.5mg qWeek x 4Weeks; then inject 1mg qWeek. semaglutide 2021-0 Yes [id number] 1mg inject 1 [facility] (OZEMPIC) 1 8-11 mg under ity of mg/dose (4 00:00: the skin [place] mg/3 mL) 00 weekly. Medical [facility] Branch semaglutide 2021-0 Yes [id number] .25mg inject [facility] (OZEMPIC) 8-11 0.25 mg ity of 0.25 mg or 00:00: under the [place] 0.5 mg(2 00 skin Medical mg/1.5 mL) weekly. Branch PnIj Direction: Inject 0.25mg qWeek x 4 Weeks; then Inject 0.5mg qWeek x 4Weeks; then inject 1mg qWeek. semaglutide 2021-0 Yes [id number] 1mg inject 1 [facility] (OZEMPIC) 1 8-11 mg under ity of mg/dose (4 00:00: the skin [place] mg/3 mL) 00 weekly. Medical [facility] Branch semaglutide 2021-0 Yes [id number] .25mg inject [facility] (OZEMPIC) 8-11 0.25 mg ity of 0.25 mg or 00:00: under the [place] 0.5 mg(2 00 skin Medical mg/1.5 mL) weekly. Branch PnIj Direction: Inject 0.25mg qWeek x 4 Weeks; then Inject 0.5mg qWeek x 4Weeks; then inject 1mg qWeek. semaglutide 2021-0 Yes [id number] 1mg inject 1 [facility] (OZEMPIC) 1 8-11 mg under ity of mg/dose (4 00:00: the skin [place] mg/3 mL) 00 weekly. Medical [facility] Branch semaglutide 2021-0 Yes [id number] .25mg inject [facility] (OZEMPIC) 8-11 0.25 mg ity of 0.25 mg or 00:00: under the [place] 0.5 mg(2 00 skin Medical mg/1.5 mL) weekly. Branch PnIj Direction: Inject 0.25mg qWeek x 4 Weeks; then Inject 0.5mg qWeek x 4Weeks; then inject 1mg qWeek. semaglutide 2021-0 Yes [id number] 1mg inject 1 [facility] (OZEMPIC) 1 8-11 mg under ity of mg/dose (4 00:00: the skin [place] mg/3 mL) 00 weekly. Medical [facility] Branch semaglutide 2021-0 Yes [id number] .25mg inject [facility] (OZEMPIC) 8-11 0.25 mg ity of 0.25 mg or 00:00: under the [place] 0.5 mg(2 00 skin Medical mg/1.5 mL) weekly. Branch PnIj Direction: Inject 0.25mg qWeek x 4 Weeks; then Inject 0.5mg qWeek x 4Weeks; then inject 1mg qWeek. semaglutide 2022-0 Yes [id number] .25mg inject [facility] (OZEMPIC) 12-31 0.25 mg ity of 0.25 mg or 00:00: under the [place] 0.5 mg(2 00 skin Medical mg/1.5 mL) weekly. Branch PnIj Direction: Inject 0.25mg qWeek x 4 Weeks; then Inject 0.5mg qWeek x 4Weeks; then inject 1mg qWeek. semaglutide 2021-0 3- No [id number] 1mg inject 1 [facility] (OZEMPIC) 1 12-31-04 mg under ity of mg/dose (4 00:00: 00:00 the skin [place] mg/3 mL) 00 :00 weekly. Medical [facility] Branch semaglutide 2021-0 2022- No [id number] .25mg inject [facility] (OZEMPIC) 12-31 0.25 mg ity of 0.25 mg or 00:00: 00:00 under the [place] 0.5 mg(2 00 :00 skin Medical mg/1.5 mL) weekly. Branch PnIj Direction: Inject 0.25mg qWeek x 4 Weeks; then Inject 0.5mg qWeek x 4Weeks; then inject 1mg qWeek. cholecalcif 2022-0 Yes 1{tbl} Take 1 [facility] (D3-5) - tablet by [facility] 5,000 Units 00:00: mouth 1 tablet 00 (one) time each day in the morning. Cholecalcif 2022-0 Yes [id number] 5000U Take 1 [facility], 8-03 tablet by ity of Vitamin D3, 00:00: mouth in [place] (VITAMIN 00 the Medical D3) 125 mcg morning. Bran ch (5,000 unit) tablet Cholecalcif 2022-0 Yes [id number] 5000U Take 1 [facility], 8-03 tablet by ity of Vitamin D3, 00:00: mouth in [place] (VITAMIN 00 the Medical D3) 125 mcg morning. Bran ch (5,000 unit) tablet Cholecalcif 2022-0 Yes [id number] 5000U Take 1 [facility], 8-03 tablet by ity of Vitamin D3, 00:00: mouth in [place] (VITAMIN 00 the Medical D3) 125 mcg morning. Bran ch (5,000 unit) tablet Cholecalcif 2022-0 Yes [id number] 5000U Take 1 [facility], 8-03 tablet by ity of Vitamin D3, 00:00: mouth in [place] (VITAMIN 00 the Medical D3) 125 mcg morning. Bran ch (5,000 unit) tablet Cholecalcif 2022-0 Yes [id number] 5000U Take 1 [facility], 8-03 tablet by ity of Vitamin D3, 00:00: mouth in [place] (VITAMIN 00 the Medical D3) 125 mcg morning. Bran ch (5,000 unit) tablet Cholecalcif 2022-0 Yes [id number] 5000U Take 1 [facility], 8-03 tablet by ity of Vitamin D3, 00:00: mouth in [place] (VITAMIN 00 the Medical D3) 125 mcg morning. Bran ch (5,000 unit) tablet Cholecalcif 2022-0 Yes [id number] 5000U Take 1 [facility], 8-03 tablet by ity of Vitamin D3, 00:00: mouth in [place] (VITAMIN 00 the Medical D3) 125 mcg morning. Bran ch (5,000 unit) tablet Cholecalcif 2022-0 Yes [id number] 5000U Take 1 [facility], 8-03 tablet by ity of Vitamin D3, 00:00: mouth in [place] (VITAMIN 00 the Medical D3) 125 mcg morning. Bran ch (5,000 unit) tablet Cholecalcif 2022-0 Yes [id number] 5000U Take 1 [facility], 8-03 tablet by ity of Vitamin D3, 00:00: mouth in [place] (VITAMIN 00 the Medical D3) 125 mcg morning. Bran ch (5,000 unit) tablet Cholecalcif 2022-0 Yes [id number] 5000U Take 1 [facility], 8-03 tablet by ity of Vitamin D3, 00:00: mouth in [place] (VITAMIN 00 the Medical D3) 125 mcg morning. Bran ch (5,000 unit) tablet Cholecalcif 2022-0 Yes [id number] 5000U Take 1 [facility], 8-03 tablet by ity of Vitamin D3, 00:00: mouth in [place] (VITAMIN 00 the Medical D3) 125 mcg morning. Bran ch (5,000 unit) tablet Cholecalcif 2022-0 Yes [id number] 5000U Take 1 [facility], 8-03 tablet by ity of Vitamin D3, 00:00: mouth in [place] (VITAMIN 00 the Medical D3) 125 mcg morning. Bran ch (5,000 unit) tablet Cholecalcif 2022-0 Yes [id number] 5000U Take 1 [facility], 8-03 tablet by ity of Vitamin D3, 00:00: mouth in [place] (VITAMIN 00 the Medical D3) 125 mcg morning. Bran ch (5,000 unit) tablet Cholecalcif 2022-0 Yes [id number] 5000U Take 1 [facility], 8-03 tablet by ity of Vitamin D3, 00:00: mouth in [place] (VITAMIN 00 the Medical D3) 125 mcg morning. Bran ch (5,000 unit) tablet Cholecalcif 2022-0 Yes [id number] 5000U Take 1 [facility], 8-03 tablet by ity of Vitamin D3, 00:00: mouth in [place] (VITAMIN 00 the Medical D3) 125 mcg morning. Bran ch (5,000 unit) tablet Cholecalcif 2022-0 Yes [id number] 5000U Take 1 [facility], 8-03 tablet by ity of Vitamin D3, 00:00: mouth in [place] (VITAMIN 00 the Medical D3) 125 mcg morning. Bran ch (5,000 unit) tablet Cholecalcif 2022-0 Yes [id number] 5000U Take 1 [facility], 8-03 tablet by ity of Vitamin D3, 00:00: mouth in [place] (VITAMIN 00 the Medical D3) 125 mcg morning. Bran ch (5,000 unit) tablet Cholecalcif 2022-0 Yes [id number] 5000U Take 1 [facility], 8-03 tablet by ity of Vitamin D3, 00:00: mouth in [place] (VITAMIN 00 the Medical D3) 125 mcg morning. Bran ch (5,000 unit) tablet Cholecalcif 2022-0 Yes [id number] 5000U Take 1 [facility], 8-03 tablet by ity of Vitamin D3, 00:00: mouth in [place] (VITAMIN 00 the Medical D3) 125 mcg morning. Bran ch (5,000 unit) tablet Cholecalcif 2022-0 Yes [id number] 5000U Take 1 [facility], 8-03 tablet by ity of Vitamin D3, 00:00: mouth in [place] (VITAMIN 00 the Medical D3) 125 mcg morning. Bran ch (5,000 unit) tablet Cholecalcif 2022-0 Yes [id number] 5000U Take 1 [facility], 8-03 tablet by ity of Vitamin D3, 00:00: mouth in [place] (VITAMIN 00 the Medical D3) 125 mcg morning. Bran ch (5,000 unit) tablet Cholecalcif 2022-0 Yes [id number] 5000U Take 1 [facility], 8-03 tablet by ity of Vitamin D3, 00:00: mouth in [place] (VITAMIN 00 the Medical D3) 125 mcg morning. Bran ch (5,000 unit) tablet Cholecalcif 2022-0 Yes [id number] 5000U Take 1 [facility], 8-03 tablet by ity of Vitamin D3, 00:00: mouth in [place] (VITAMIN 00 the Medical D3) 125 mcg morning. Bran ch (5,000 unit) tablet Cholecalcif 2022-0 Yes [id number] 5000U Take 1 [facility], 8-03 tablet by ity of Vitamin D3, 00:00: mouth in [place] (VITAMIN 00 the Medical D3) 125 mcg morning. Bran ch (5,000 unit) tablet Cholecalcif 2022-0 Yes [id number] 5000U Take 1 [facility], 8-03 tablet by ity of Vitamin D3, 00:00: mouth in [place] (VITAMIN 00 the Medical D3) 125 mcg morning. Bran ch (5,000 unit) tablet Cholecalcif 2022-0 Yes [id number] 5000U Take 1 [facility], 8-03 tablet by ity of Vitamin D3, 00:00: mouth in [place] (VITAMIN 00 the Medical D3) 125 mcg morning. Bran ch (5,000 unit) tablet Cholecalcif 2022-0 Yes [id number] 5000U Take 1 [facility], 8-03 tablet by ity of Vitamin D3, 00:00: mouth in [place] (VITAMIN 00 the Medical D3) 125 mcg morning. Bran ch (5,000 unit) tablet Cholecalcif 2022-0 Yes [id number] 5000U Take 1 [facility], 8-03 tablet by ity of Vitamin D3, 00:00: mouth in [place] (VITAMIN 00 the Medical D3) 125 mcg morning. Bran ch (5,000 unit) tablet Cholecalcif 2022-0 Yes [id number] 5000U Take 1 [facility], 8-03 tablet by ity of Vitamin D3, 00:00: mouth in [place] (VITAMIN 00 the Medical D3) 125 mcg morning. Bran ch (5,000 unit) tablet Cholecalcif 2022-0 Yes [id number] 5000U Take 1 [facility], 8-03 tablet by ity of Vitamin D3, 00:00: mouth in [place] (VITAMIN 00 the Medical D3) 125 mcg morning. Bran ch (5,000 unit) tablet Cholecalcif 2022-0 Yes [id number] 5000U Take 1 [facility], 8-03 tablet by ity of Vitamin D3, 00:00: mouth in [place] (VITAMIN 00 the Medical D3) 125 mcg morning. Bran ch (5,000 unit) tablet Cholecalcif 2022-0 Yes [id number] 5000U Take 1 [facility], 8-03 tablet by ity of Vitamin D3, 00:00: mouth in [place] (VITAMIN 00 the Medical D3) 125 mcg morning. Bran ch (5,000 unit) tablet Cholecalcif 2022-0 Yes [id number] 5000U Take 1 [facility], 8-03 tablet by ity of Vitamin D3, 00:00: mouth in [place] (VITAMIN 00 the Medical D3) 125 mcg morning. Bran ch (5,000 unit) tablet Cholecalcif 2022-0 Yes [id number] 5000U Take 1 [facility], 8-03 tablet by ity of Vitamin D3, 00:00: mouth in [place] (VITAMIN 00 the Medical D3) 125 mcg morning. Bran ch (5,000 unit) tablet Cholecalcif 2022-0 Yes [id number] 5000U Take 1 [facility], 8-03 tablet by ity of Vitamin D3, 00:00: mouth in [place] (VITAMIN 00 the Medical D3) 125 mcg morning. Bran ch (5,000 unit) tablet Cholecalcif 2022-0 Yes [id number] 5000U Take 1 [facility], 8-03 tablet by ity of Vitamin D3, 00:00: mouth in [place] (VITAMIN 00 the Medical D3) 125 mcg morning. Bran ch (5,000 unit) tablet Cholecalcif 2022-0 Yes [id number] 5000U Take 1 [facility], 8-03 tablet by ity of Vitamin D3, 00:00: mouth in [place] (VITAMIN 00 the Medical D3) 125 mcg morning. Bran ch (5,000 unit) tablet Cholecalcif 2022-0 Yes [id number] 5000U Take 1 [facility], 8-03 tablet by ity of Vitamin D3, 00:00: mouth in [place] (VITAMIN 00 the Medical D3) 125 mcg morning. Bran ch (5,000 unit) tablet Cholecalcif 2022-0 Yes [id number] 5000U Take 1 [facility], 8-03 tablet by ity of Vitamin D3, 00:00: mouth in [place] (VITAMIN 00 the Medical D3) 125 mcg morning. Bran ch (5,000 unit) tablet Cholecalcif 2022-0 Yes [id number] 5000U Take 1 [facility], 8-03 tablet by ity of Vitamin D3, 00:00: mouth in [place] (VITAMIN 00 the Medical D3) 125 mcg morning. Bran ch (5,000 unit) tablet Cholecalcif 2022-0 Yes [id number] 5000U Take 1 [facility], 8-03 tablet by ity of Vitamin D3, 00:00: mouth in [place] (VITAMIN 00 the Medical D3) 125 mcg morning. Bran ch (5,000 unit) tablet Cholecalcif 2022-0 Yes [id number] 5000U Take 1 [facility], 8-03 tablet by ity of Vitamin D3, 00:00: mouth in [place] (VITAMIN 00 the Medical D3) 125 mcg morning. Bran ch (5,000 unit) tablet Cholecalcif 2022-0 Yes [id number] 5000U Take 1 [facility], 8-03 tablet by ity of Vitamin D3, 00:00: mouth in [place] (VITAMIN 00 the Medical D3) 125 mcg morning. Bran ch (5,000 unit) tablet Cholecalcif 2022-0 Yes [id number] 5000U Take 1 [facility], 8-03 tablet by ity of Vitamin D3, 00:00: mouth in [place] (VITAMIN 00 the Medical D3) 125 mcg morning. Bran ch (5,000 unit) tablet Cholecalcif 2022-0 Yes [id number] 5000U Take 1 [facility], 8-03 tablet by ity of Vitamin D3, 00:00: mouth in [place] (VITAMIN 00 the Medical D3) 125 mcg morning. Bran ch (5,000 unit) tablet Cholecalcif 2022-0 Yes [id number] 5000U Take 1 [facility], 8-03 tablet by ity of Vitamin D3, 00:00: mouth in [place] (VITAMIN 00 the Medical D3) 125 mcg morning. Bran ch (5,000 unit) tablet Cholecalcif 2022-0 Yes [id number] 5000U Take 1 [facility], 8-03 tablet by ity of Vitamin D3, 00:00: mouth in [place] (VITAMIN 00 the Medical D3) 125 mcg morning. Bran ch (5,000 unit) tablet Cholecalcif 2022-0 Yes [id number] 5000U Take 1 [facility], 8-03 tablet by ity of Vitamin D3, 00:00: mouth in [place] (VITAMIN 00 the Medical D3) 125 mcg morning. Bran ch (5,000 unit) tablet Cholecalcif 2022-0 Yes [id number] 5000U Take 1 [facility], 8-03 tablet by ity of Vitamin D3, 00:00: mouth in [place] (VITAMIN 00 the Medical D3) 125 mcg morning. Bran ch (5,000 unit) tablet Cholecalcif 2022-0 Yes [id number] 5000U Take 1 [facility], 8-03 tablet by ity of Vitamin D3, 00:00: mouth in [place] (VITAMIN 00 the Medical D3) 125 mcg morning. Bran ch (5,000 unit) tablet Cholecalcif 2022-0 Yes [id number] 5000U Take 1 [facility], 8-03 tablet by ity of Vitamin D3, 00:00: mouth in [place] (VITAMIN 00 the Medical D3) 125 mcg morning. Bran ch (5,000 unit) tablet Cholecalcif 2022-0 Yes [id number] 5000U Take 1 [facility], 8-03 tablet by ity of Vitamin D3, 00:00: mouth in [place] (VITAMIN 00 the Medical D3) 125 mcg morning. Bran ch (5,000 unit) tablet Cholecalcif 2022-0 Yes [id number] 5000U Take 1 [facility], 8-03 tablet by ity of Vitamin D3, 00:00: mouth in [place] (VITAMIN 00 the Medical D3) 125 mcg morning. Bran ch (5,000 unit) tablet Cholecalcif 2022-0 Yes [id number] 5000U Take 1 [facility], 8-03 tablet by ity of Vitamin D3, 00:00: mouth in [place] (VITAMIN 00 the Medical D3) 125 mcg morning. Bran ch (5,000 unit) tablet Cholecalcif 2022-0 Yes [id number] 5000U Take 1 [facility], 8-03 tablet by ity of Vitamin D3, 00:00: mouth in [place] (VITAMIN 00 the Medical D3) 125 mcg morning. Bran ch (5,000 unit) tablet Cholecalcif 2022-0 Yes [id number] 5000U Take 1 [facility], 8-03 tablet by ity of Vitamin D3, 00:00: mouth in [place] (VITAMIN 00 the Medical D3) 125 mcg morning. Bran ch (5,000 unit) tablet Cholecalcif 2022-0 Yes [id number] 5000U Take 1 [facility], 8-03 tablet by ity of Vitamin D3, 00:00: mouth in [place] (VITAMIN 00 the Medical D3) 125 mcg morning. Bran ch (5,000 unit) tablet Cholecalcif 2022-0 Yes [id number] 5000U Take 1 [facility], 8-03 tablet by ity of Vitamin D3, 00:00: mouth in [place] (VITAMIN 00 the Medical D3) 125 mcg morning. Bran ch (5,000 unit) tablet Cholecalcif 2022-0 Yes [id number] 5000U Take 1 [facility], 8-03 tablet by ity of Vitamin D3, 00:00: mouth in [place] (VITAMIN 00 the Medical D3) 125 mcg morning. Bran ch (5,000 unit) tablet Cholecalcif 2022-0 Yes [id number] 5000U Take 1 [facility], 8-03 tablet by ity of Vitamin D3, 00:00: mouth in [place] (VITAMIN 00 the Medical D3) 125 mcg morning. Bran ch (5,000 unit) tablet Cholecalcif 2022-0 Yes [id number] 5000U Take 1 [facility], 8-03 tablet by ity of Vitamin D3, 00:00: mouth in [place] (VITAMIN 00 the Medical D3) 125 mcg morning. Bran ch (5,000 unit) tablet Cholecalcif 2022-0 Yes [id number] 5000U Take 1 [facility], 8-03 tablet by ity of Vitamin D3, 00:00: mouth in [place] (VITAMIN 00 the Medical D3) 125 mcg morning. Bran ch (5,000 unit) tablet Cholecalcif 2022-0 Yes [id number] 5000U Take 1 [facility], 8-03 tablet by ity of Vitamin D3, 00:00: mouth in [place] (VITAMIN 00 the Medical D3) 125 mcg morning. Bran ch (5,000 unit) tablet Cholecalcif 2022-0 Yes [id number] 5000U Take 1 [facility], 8-03 tablet by ity of Vitamin D3, 00:00: mouth in [place] (VITAMIN 00 the Medical D3) 125 mcg morning. Bran ch (5,000 unit) tablet Cholecalcif 2022-0 Yes [id number] 5000U Take 1 [facility], 8-03 tablet by ity of Vitamin D3, 00:00: mouth in [place] (VITAMIN 00 the Medical D3) 125 mcg morning. Bran ch (5,000 unit) tablet Cholecalcif 2022-0 Yes [id number] 5000U Take 1 [facility], 8-03 tablet by ity of Vitamin D3, 00:00: mouth in [place] (VITAMIN 00 the Medical D3) 125 mcg morning. Bran ch (5,000 unit) tablet cholecalcif 2022-0 Yes 1{tbl} Take 1 [facility] (D3-5) 8-03 tablet by [facility] 5,000 Units 00:00: mouth 1 tablet 00 (one) time each day in the morning. cholecalcif 2022-0 Yes 1{tbl} Take 1 [facility] (D3-5) 8-03 tablet by [facility] 5,000 Units 00:00: mouth 1 tablet 00 (one) time each day in the morning. ROSUVASTATI 2022-0 Yes [id number] 5mg TAKE 1 [facility] N 5 mg 7-26 TABLET BY ity of tablet 00:00: MOUTH AT [address] ROSUVASTATI 2022-0 Yes [id number] 5mg TAKE 1 [facility] N 5 mg 7-26 TABLET BY ity of tablet 00:00: MOUTH AT [address] ROSUVASTATI 2022-0 Yes [id number] 5mg TAKE 1 [facility] N 5 mg 7-26 TABLET BY ity of tablet 00:00: MOUTH AT [address] [facility] [id number] 5mg TAKE 1 [facility] N 5 mg 7-26 TABLET BY ity of tablet 00:00: MOUTH AT [facility] Yes [id number] 5mg TAKE 1 [facility] N 5 mg 7-26 TABLET BY ity of tablet 00:00: MOUTH AT [facility] Yes [id number] 5mg TAKE 1 [facility] N 5 mg 7-26 TABLET BY ity of tablet 00:00: MOUTH AT [facility] Yes [id number] 5mg TAKE 1 [facility] N 5 mg 7-26 TABLET BY ity of tablet 00:00[facility] [place] [facility] [id number] 5mg TAKE 1 [facility] N 5 mg 7-26 TABLET BY ity of tablet 00:00: [facility] [place] [facility] [id number] 5mg TAKE 1 [facility] N 5 mg 7-26 TABLET BY ity of tablet 00:00: [facility] [place] [facility] [id number] 5mg TAKE 1 [facility] N 5 mg 7-26 TABLET BY ity of tablet 00:00: [facility] [place] [facility] [id number] 5mg TAKE 1 [facility] N 5 mg 7-26 TABLET BY ity of tablet 00:00: MOUTH AT [facility] Yes [id number] 5mg TAKE 1 [facility] N 5 mg 7-26 TABLET BY ity of tablet 00:00: MOUTH AT [facility] Yes [id number] 5mg TAKE 1 [facility] N 5 mg 7-26 TABLET BY ity of tablet 00:00: MOUTH AT [facility] Yes [id number] 5mg TAKE 1 [facility] N 5 mg 7-26 TABLET BY ity of tablet 00:00: MOUTH AT [address] [facility] Yes [id number] 5mg TAKE 1 [facility] N 5 mg 7-26 TABLET BY ity of tablet 00:00: MOUTH AT [address] ROSUVASTATI Yes [id number] 5mg TAKE 1 [facility] N 5 mg 7-26 TABLET BY ity of tablet 00:00: MOUTH AT [facility] Yes [id number] 5mg TAKE 1 [facility] N 5 mg 7-26 TABLET BY ity of tablet 00:00: MOUTH AT [facility] Yes [id number] 5mg TAKE 1 [facility] N 5 mg 7-26 TABLET BY ity of tablet 00:00: MOUTH AT [facility] Yes [id number] 5mg TAKE 1 [facility] N 5 mg 7-26 TABLET BY ity of tablet 00:00: MOUTH AT [facility] Yes [id number] 5mg TAKE 1 [facility] N 5 mg 7-26 TABLET BY ity of tablet 00:00: MOUTH AT [facility] Yes [id number] 5mg TAKE 1 [facility] N 5 mg 7-26 TABLET BY ity of tablet 00:00: [facility] [place] [facility] [id number] 5mg TAKE 1 [facility] N 5 mg 7-26 TABLET BY ity of tablet 00:00: [facility] [place] [facility] [id number] 5mg TAKE 1 [facility] N 5 mg 7-26 TABLET BY ity of tablet 00:00: MOUTH AT [facility] Yes [id number] 5mg TAKE 1 [facility] N 5 mg 7-26 TABLET BY ity of tablet 00:00: MOUTH AT [facility] Yes [id number] 5mg TAKE 1 [facility] N 5 mg 7-26 TABLET BY ity of tablet 00:00: MOUTH AT [facility] Yes [id number] 5mg TAKE 1 [facility] N 5 mg 7-26 TABLET BY ity of tablet 00:00: MOUTH AT [facility] Yes [id number] 5mg TAKE 1 [facility] N 5 mg 7-26 TABLET BY ity of tablet 00:00: MOUTH AT [facility] Yes [id number] 5mg TAKE 1 [facility] N 5 mg 7-26 TABLET BY ity of tablet 00:00: MOUTH AT [facility] Yes [id number] 5mg TAKE 1 [facility] N 5 mg 7-26 TABLET BY ity of tablet 00:00: [facility] [place] [facility] [id number] 5mg TAKE 1 [facility] N 5 mg 7-26 TABLET BY ity of tablet 00:00: [facility] [place] [facility] [id number] 5mg TAKE 1 [facility] N 5 mg 7-26 TABLET BY ity of tablet 00:00: [facility] [place] [facility] [id number] 5mg TAKE 1 [facility] 5 mg 7-26 TABLET BY [facility] tablet 00:00: [facility] [place] [facility] [id number] 5mg TAKE 1 [facility] 5 mg 7-26 TABLET BY [facility] of tablet 00:00: [facility] [place] [facility] [id number] 5mg TAKE 1 [facility] 5 mg 7-26 TABLET BY [facility] of tablet 00:00: [facility] [place] [facility] [id number] 5mg TAKE 1 [facility] 5 mg 7-26 TABLET BY [facility] of tablet 00:00: [facility] [place] [facility] [id number] 5mg TAKE 1 [facility] N 5 mg 7-26 TABLET BY it[facility] of tablet 00:00: MOUTH AT [place] [facility] [id number] 5mg TAKE 1 [facility] N 5 mg 7-26 TABLET BY ity of tablet 00:00: MOUTH AT [place] [facility] [id number] 5mg TAKE 1 [facility] N 5 mg 7-26 TABLET BY ity of tablet 00:00: MOUTH AT [place] [facility] 0 2022- No [id number] 5mg TAKE 1 [facility] N 5 mg 7-26 03-07 TABLET BY ity of tablet 00:00: 00:00 MOUTH AT [place] [facility] 2023- No [id number] 5mg TAKE 1 [facility] N 5 mg 7-26 03-07 TABLET BY [facility] of tablet 00:00: 00:00 MOUTH AT [place] 00 :00 B[facility]-0 Yes [id number] 60mg Take 1 [facility] mg capsule 6-13 capsule by ity of 00:00: mouth [place] 00 daily. [facility] 60 2-0 Yes [id number] 60mg Take 1 [facility] mg capsule 6-13 capsule by ity of 00:00: mouth [place] 00 daily. [facility] 60 2-0 Yes [id number] 60mg Take 1 [facility] mg capsule 6-13 capsule by ity of 00:00: mouth [place] 00 daily. [facility] Trospium 60 2021-0 Yes [id number] 60mg Take 1 [facility] mg capsule 6-13 capsule by ity of 00:00: mouth [place] 00 daily. [facility] Trospium 60 2021-0 Yes [id number] 60mg Take 1 [facility] mg capsule 6-13 capsule by ity of 00:00: mouth [place] 00 daily. [facility] Trospium 60 2021-0 Yes [id number] 60mg Take 1 [facility] mg capsule 6-13 capsule by ity of 00:00: mouth [place] 00 daily. [facility] Trospium 60 2-0 Yes [id number] 60mg Take 1 [facility] mg capsule 6-13 capsule by ity of 00:00: mouth [place] 00 daily. [facility] Trospium 60 2-0 Yes [id number] 60mg Take 1 [facility] mg capsule 6-13 capsule by ity of 00:00: mouth [place] 00 daily. [facility] Trospium 60 2-0 Yes [id number] 60mg Take 1 [facility] mg capsule 6-13 capsule by ity of 00:00: mouth [place] 00 daily. [facility] Trospium 60 2-0 Yes [id number] 60mg Take 1 [facility] mg capsule 6-13 capsule by ity of 00:00: mouth [place] 00 daily. [facility] Trospium 60 2-0 Yes [id number] 60mg Take 1 [facility] mg capsule 6-13 capsule by ity of 00:00: mouth [place] 00 daily. [facility] Trospium 60 2-0 Yes [id number] 60mg Take 1 [facility] mg capsule 6-13 capsule by ity of 00:00: mouth [place] 00 daily. [facility] Trospium 60 2-0 Yes [id number] 60mg Take 1 [facility] mg capsule 6-13 capsule by ity of 00:00: mouth [place] 00 daily. [facility] Trospium 60 2-0 Yes [id number] 60mg Take 1 [facility] mg capsule 6-13 capsule by ity of 00:00: mouth [place] 00 daily. [facility] Trospium 60 2-0 Yes [id number] 60mg Take 1 [facility] mg capsule 6-13 capsule by ity of 00:00: mouth [place] 00 daily. [facility] Trospium 60 2-0 Yes [id number] 60mg Take 1 [facility] mg capsule 6-13 capsule by ity of 00:00: mouth [place] 00 daily. [facility] Trospium 60 2-0 Yes [id number] 60mg Take 1 [facility] mg capsule 6-13 capsule by ity of 00:00: mouth [place] 00 daily. [facility] Trospium 60 2-0 Yes [id number] 60mg Take 1 [facility] mg capsule 6-13 capsule by ity of 00:00: mouth [place] 00 daily. [facility] Trospium 60 2-0 Yes [id number] 60mg Take 1 [facility] mg capsule 6-13 capsule by ity of 00:00: mouth [place] 00 daily. [facility] Trospium 60 2-0 Yes [id number] 60mg Take 1 [facility] mg capsule 6-13 capsule by ity of 00:00: mouth [place] 00 daily. [facility] Trospium 60 2-0 Yes [id number] 60mg Take 1 [facility] mg capsule 6-13 capsule by ity of 00:00: mouth [place] 00 daily. [facility] Trospium 60 2-0 Yes [id number] 60mg Take 1 [facility] mg capsule 6-13 capsule by ity of 00:00: mouth [place] 00 daily. [facility] Trospium 60 2-0 Yes [id number] 60mg Take 1 [facility] mg capsule 6-13 capsule by ity of 00:00: mouth [place] 00 daily. [facility] Trospium 60 2-0 Yes [id number] 60mg Take 1 [facility] mg capsule 6-13 capsule by ity of 00:00: mouth [place] 00 daily. [facility] Trospium 60 2-0 Yes [id number] 60mg Take 1 [facility] mg capsule 6-13 capsule by ity of 00:00: mouth [place] 00 daily. [facility] Trospium 60 2-0 Yes [id number] 60mg Take 1 [facility] mg capsule 6-13 capsule by ity of 00:00: mouth [place] 00 daily. [facility] Trospium 60 2-0 Yes [id number] 60mg Take 1 [facility] mg capsule 6-13 capsule by ity of 00:00: mouth [place] 00 daily. [facility] Trospium 60 2-0 Yes [id number] 60mg Take 1 [facility] mg capsule 6-13 capsule by ity of 00:00: mouth [place] 00 daily. [facility] Trospium 60 2-0 Yes [id number] 60mg Take 1 [facility] mg capsule 6-13 capsule by ity of 00:00: mouth [place] 00 daily. [facility] Trospium 60 2-0 Yes [id number] 60mg Take 1 [facility] mg capsule 6-13 capsule by ity of 00:00: mouth [place] 00 daily. [facility] Trospium 60 2-0 Yes [id number] 60mg Take 1 [facility] mg capsule 6-13 capsule by ity of 00:00: mouth [place] 00 daily. [facility] Trospium 60 2-0 Yes [id number] 60mg Take 1 [facility] mg capsule 6-13 capsule by ity of 00:00: mouth [place] 00 daily. [facility] Trospium 60 2-0 Yes [id number] 60mg Take 1 [facility] mg capsule 6-13 capsule by ity of 00:00: mouth [place] 00 daily. [facility] Trospium 60 2-0 Yes [id number] 60mg Take 1 [facility] mg capsule 6-13 capsule by ity of 00:00: mouth [place] 00 daily. [facility] Trospium 60 2-0 Yes [id number] 60mg Take 1 [facility] mg capsule 6-13 capsule by ity of 00:00: mouth [place] 00 daily. [facility] Trospium 60 2-0 Yes [id number] 60mg Take 1 [facility] mg capsule 6-13 capsule by ity of 00:00: mouth [place] 00 daily. [facility] Trospium 60 2-0 Yes [id number] 60mg Take 1 [facility] mg capsule 6-13 capsule by ity of 00:00: mouth [place] 00 daily. [facility] Trospium 60 2-0 Yes [id number] 60mg Take 1 [facility] mg capsule 6-13 capsule by ity of 00:00: mouth [place] 00 daily. [facility] Trospium 60 2-0 Yes [id number] 60mg Take 1 [facility] mg capsule 6-13 capsule by ity of 00:00: mouth [place] 00 daily. [facility] Trospium 60 2-0 Yes [id number] 60mg Take 1 [facility] mg capsule 6-13 capsule by ity of 00:00: mouth [place] 00 daily. [facility] Trospium 60 2-0 Yes [id number] 60mg Take 1 [facility] mg capsule 6-13 capsule by ity of 00:00: mouth [place] 00 daily. [facility] Trospium 60 2-0 3- No [id number] 60mg Take 1 [facility] mg capsule 6-13 03-07 capsule by it y of 00:00: 00:00 mouth [place] 00 :00 daily. [facility] Trospium 60 2-0 3- No [id number] 60mg Take 1 [facility] mg capsule 6-13 03-07 capsule by it y of 00:00: 00:00 mouth [place] 00 :00 daily. [facility] AMLODIPINE 2-0 Yes [id number] 2.5mg TAKE 1 [facility] 2.5 mg 6-08 TABLET BY ity of tablet 00:00: MOUTH AT [place] BEDTIME Medical Branch AMLODIPINE 2-0 Yes [id number] 2.5mg TAKE 1 [facility] 2.5 mg 6-08 TABLET BY ity of tablet 00:00: MOUTH AT [place] BEDTIME Medical Branch AMLODIPINE 2-0 Yes [id number] 2.5mg TAKE 1 [facility] 2.5 mg 6-08 TABLET BY ity of tablet 00:00: MOUTH AT [place] BEDTIME Medical Branch AMLODIPINE 2-0 Yes [id number] 2.5mg TAKE 1 [facility] 2.5 mg 6-08 TABLET BY ity of tablet 00:00: MOUTH AT [place] BEDTIME Medical Branch AMLODIPINE 2-0 Yes [id number] 2.5mg TAKE 1 [facility] 2.5 mg 6-08 TABLET BY ity of tablet 00:00: MOUTH AT [place] BEDTIME Medical Branch AMLODIPINE 2-0 Yes [id number] 2.5mg TAKE 1 [facility] 2.5 mg 6-08 TABLET BY ity of tablet 00:00: MOUTH AT [place] BEDTIME Medical Branch AMLODIPINE 2022-0 Yes [id number] 2.5mg TAKE 1 [facility] 2.5 mg 6-08 TABLET BY ity of tablet 00:00: MOUTH AT [place] [facility] AMLODIPINE 2021-0 Yes [id number] 2.5mg TAKE 1 [facility] 2.5 mg 6-08 TABLET BY ity of tablet 00:00: MOUTH AT [place] [facility] AMLODIPINE 2021-0 Yes [id number] 2.5mg TAKE 1 [facility] 2.5 mg 6-08 TABLET BY ity of tablet 00:00: MOUTH AT [place] [facility] AMLODIPINE 2021-0 Yes [id number] 2.5mg TAKE 1 [facility] 2.5 mg 6-08 TABLET BY ity of tablet 00:00: MOUTH AT [place] [facility] AMLODIPINE 2021-0 Yes [id number] 2.5mg TAKE 1 [facility] 2.5 mg 6-08 TABLET BY ity of tablet 00:00: MOUTH AT [place] [facility] AMLODIPINE 2021-0 Yes [id number] 2.5mg TAKE 1 [facility] 2.5 mg 6-08 TABLET BY ity of tablet 00:00: MOUTH AT [place] [facility] AMLODIPINE 2021-0 Yes [id number] 2.5mg TAKE 1 [facility] 2.5 mg 6-08 TABLET BY ity of tablet 00:00: MOUTH AT [place] [facility] AMLODIPINE 2021-0 Yes [id number] 2.5mg TAKE 1 [facility] 2.5 mg 6-08 TABLET BY ity of tablet 00:00: MOUTH AT [place] [facility] AMLODIPINE 2021-0 Yes [id number] 2.5mg TAKE 1 [facility] 2.5 mg 6-08 TABLET BY ity of tablet 00:00: MOUTH AT [place] [facility] AMLODIPINE 2021-0 Yes [id number] 2.5mg TAKE 1 [facility] 2.5 mg 6-08 TABLET BY ity of tablet 00:00: MOUTH AT [place] [facility] AMLODIPINE 2021-0 Yes [id number] 2.5mg TAKE 1 [facility] 2.5 mg 6-08 TABLET BY ity of tablet 00:00: MOUTH AT [address] AMLODIPINE 2021-0 Yes [id number] 2.5mg TAKE 1 [facility] 2.5 mg 6-08 TABLET BY ity of tablet 00:00: MOUTH AT [address] AMLODIPINE 2022-0 Yes [id number] 2.5mg TAKE 1 [facility] 2.5 mg 6-08 TABLET BY ity of tablet 00:00: MOUTH AT [place] 00 BEDTIME Medical Branch AMLODIPINE 2-0 Yes [id number] 2.5mg TAKE 1 [facility] 2.5 mg 6-08 TABLET BY ity of tablet 00:00: MOUTH AT [place] BEDTIME Medical Branch AMLODIPINE 2-0 Yes [id number] 2.5mg TAKE 1 [facility] 2.5 mg 6-08 TABLET BY ity of tablet 00:00: MOUTH AT [place] BEDTIME Medical Branch AMLODIPINE 2-0 Yes [id number] 2.5mg TAKE 1 [facility] 2.5 mg 6-08 TABLET BY ity of tablet 00:00: MOUTH AT [place] BEDTIME Medical Branch AMLODIPINE 2-0 Yes [id number] 2.5mg TAKE 1 [facility] 2.5 mg 6-08 TABLET BY ity of tablet 00:00: MOUTH AT [place] BEDTIME Medical Branch AMLODIPINE 2-0 Yes [id number] 2.5mg TAKE 1 [facility] 2.5 mg 6-08 TABLET BY ity of tablet 00:00: [facility] [place] [facility] AMLODIP[facility] 2-0 2023- No [id number] 2.5mg TAKE 1 [facility] 2.5 mg 6-08 01-10 TABLET BY ity of tablet 00:00: 00:00 MOUTH AT [place] 00 [facility] clobetasoL 2-0 Yes [id number] Apply to [facility] 0.05 % 6-01 area(s) 2 ity of ointment 00:00: (two) [place] 00 times Medical daily. Branch clobetasoL 2-0 Yes [id number] Apply to [facility] 0.05 % 6-01 area(s) 2 ity of ointment 00:00: (two) [place] 00 times Medical daily. Branch clobetasoL 2022-0 Yes [id number] Apply to [facility] 0.05 % 6-01 area(s) 2 ity of ointment 00:00: (two) [place] times Medical daily. Branch clobetasoL 2022-0 Yes [id number] Apply to [facility] 0.05 % 6-01 area(s) 2 ity of ointment 00:00: (two) [place] times Medical daily. Branch clobetasoL 2022-0 Yes [id number] Apply to [facility] 0.05 % 6-01 area(s) 2 ity of ointment 00:00: (two) [place] 00 times Medical daily. Branch clobetasoL 2022-0 Yes [id number] Apply to [facility] 0.05 % 6-01 area(s) 2 ity of ointment 00:00: (two) [place] 00 times Medical daily. Branch clobetasoL 2022-0 Yes [id number] Apply to [facility] 0.05 % 6-01 area(s) 2 ity of ointment 00:00: (two) [place] 00 times Medical daily. Branch clobetasoL 2022-0 Yes [id number] Apply to [facility] 0.05 % 6-01 area(s) 2 ity of ointment 00:00: (two) [place] 00 times Medical daily. Branch clobetasoL 2022-0 Yes [id number] Apply to [facility] 0.05 % 6-01 area(s) 2 ity of ointment 00:00: (two) [place] 00 times Medical daily. Branch clobetasoL 2022-0 Yes [id number] Apply to [facility] 0.05 % 6-01 area(s) 2 ity of ointment 00:00: (two) [place] 00 times Medical daily. Branch clobetasoL 2022-0 Yes [id number] Apply to [facility] 0.05 % 6-01 area(s) 2 ity of ointment 00:00: (two) [place] 00 times Medical daily. Branch clobetasoL 2022-0 Yes [id number] Apply to [facility] 0.05 % 6-01 area(s) 2 ity of ointment 00:00: (two) [place] 00 times Medical daily. Branch clobetasoL 2022-0 Yes [id number] Apply to [facility] 0.05 % 6-01 area(s) 2 ity of ointment 00:00: (two) [place] 00 times Medical daily. Branch clobetasoL 2022-0 Yes [id number] Apply to [facility] 0.05 % 6-01 area(s) 2 ity of ointment 00:00: (two) [place] 00 times Medical daily. Branch clobetasoL 2022-0 Yes [id number] Apply to [facility] 0.05 % 6-01 area(s) 2 ity of ointment 00:00: (two) [place] 00 times Medical daily. Branch clobetasoL 2022-0 Yes [id number] Apply to [facility] 0.05 % 6-01 area(s) 2 ity of ointment 00:00: (two) [place] 00 times Medical daily. Branch clobetasoL 2022-0 Yes [id number] Apply to [facility] 0.05 % 6-01 area(s) 2 ity of ointment 00:00: (two) [place] 00 times Medical daily. Branch clobetasoL 2022-0 Yes [id number] Apply to [facility] 0.05 % 6-01 area(s) 2 ity of ointment 00:00: (two) [place] 00 times Medical daily. Branch clobetasoL 2022-0 Yes [id number] Apply to [facility] 0.05 % 6-01 area(s) 2 ity of ointment 00:00: (two) [place] 00 times Medical daily. Branch clobetasoL 2022-0 Yes [id number] Apply to [facility] 0.05 % 6-01 area(s) 2 ity of ointment 00:00: (two) [place] 00 times Medical daily. Branch clobetasoL 2022-0 Yes [id number] Apply to [facility] 0.05 % 6-01 area(s) 2 ity of ointment 00:00: (two) [place] 00 times Medical daily. Branch clobetasoL 2022-0 Yes [id number] Apply to [facility] 0.05 % 6-01 area(s) 2 ity of ointment 00:00: (two) [place] 00 times Medical daily. Branch clobetasoL 2022-0 Yes [id number] Apply to [facility] 0.05 % 6-01 area(s) 2 ity of ointment 00:00: (two) [place] 00 times Medical daily. Branch clobetasoL 2022-0 Yes [id number] Apply to [facility] 0.05 % 6-01 area(s) 2 ity of ointment 00:00: (two) [place] 00 times Medical daily. Branch clobetasoL 2022-0 Yes [id number] Apply to [facility] 0.05 % 6-01 area(s) 2 ity of ointment 00:00: (two) [place] 00 times Medical daily. Branch clobetasoL 2022-0 Yes [id number] Apply to [facility] 0.05 % 6-01 area(s) 2 ity of ointment 00:00: (two) [place] 00 times Medical daily. Branch clobetasoL 2022-0 Yes [id number] Apply to [facility] 0.05 % 6-01 area(s) 2 ity of ointment 00:00: (two) [place] 00 times Medical daily. Branch clobetasoL 2022-0 Yes [id number] Apply to [facility] 0.05 % 6-01 area(s) 2 ity of ointment 00:00: (two) [place] 00 times Medical daily. Branch clobetasoL 2022-0 Yes [id number] Apply to Univers 0.05 % 6-01 area(s) 2 ity of ointment 00:00: (two) [place] 00 times Medical daily. Branch clobetasoL 2022-0 Yes [id number] Apply to [facility] 0.05 % 6-01 area(s) 2 ity of ointment 00:00: (two) [place] 00 times Medical daily. Branch clobetasoL 2022-0 Yes [id number] Apply to [facility] 0.05 % 6-01 area(s) 2 ity of ointment 00:00: (two) [place] 00 times Medical daily. Branch clobetasoL 2022-0 Yes [id number] Apply to [facility] 0.05 % 6-01 area(s) 2 ity of ointment 00:00: (two) [place] 00 times Medical daily. Branch clobetasoL 2022-0 Yes [id number] Apply to Univers 0.05 % 6-01 area(s) 2 ity of ointment 00:00: (two) [place] 00 times Medical daily. Branch clobetasoL 2022-0 Yes [id number] Apply to [facility] 0.05 % 6-01 area(s) 2 ity of ointment 00:00: (two) [place] 00 times Medical daily. Branch clobetasoL 2022-0 Yes [id number] Apply to Univers 0.05 % 6-01 area(s) 2 ity of ointment 00:00: (two) [place] 00 times Medical daily. Branch clobetasoL 2022-0 Yes [id number] Apply to [facility] 0.05 % 6-01 area(s) 2 ity of ointment 00:00: (two) [place] 00 times Medical daily. Branch clobetasoL 2022-0 Yes [id number] Apply to [facility] 0.05 % 6-01 area(s) 2 ity of ointment 00:00: (two) [place] 00 times Medical daily. Branch clobetasoL 2022-0 Yes [id number] Apply to Univers 0.05 % 6-01 area(s) 2 ity of ointment 00:00: (two) [place] 00 times Medical daily. Branch clobetasoL 2022-0 Yes [id number] Apply to [facility] 0.05 % 6-01 area(s) 2 ity of ointment 00:00: (two) [place] 00 times Medical daily. Branch clobetasoL 2022-0 Yes [id number] Apply to Univers 0.05 % 6-01 area(s) 2 ity of ointment 00:00: (two) [place] 00 times Medical daily. Branch clobetasoL 2022-0 Yes [id number] Apply to Univers 0.05 % 6-01 area(s) 2 ity of ointment 00:00: (two) [place] 00 times Medical daily. Branch clobetasoL 2022-0 Yes [id number] Apply to [facility] 0.05 % 6-01 area(s) 2 ity of ointment 00:00: (two) [place] 00 times Medical daily. Branch clobetasoL 2022-0 Yes [id number] Apply to [facility] 0.05 % 6-01 area(s) 2 ity of ointment 00:00: (two) [place] 00 times Medical daily. Branch clobetasoL 2022-0 Yes [id number] Apply to [facility] 0.05 % 6-01 area(s) 2 ity of ointment 00:00: (two) [place] 00 times Medical daily. Branch clobetasoL 2022-0 Yes [id number] Apply to Univers 0.05 % 6-01 area(s) 2 ity of ointment 00:00: (two) [place] 00 times Medical daily. Branch clobetasoL 2022-0 Yes [id number] Apply to Univers 0.05 % 6-01 area(s) 2 ity of ointment 00:00: (two) [place] 00 times Medical daily. Branch clobetasoL 2022-0 Yes [id number] Apply to Univers 0.05 % 6-01 area(s) 2 ity of ointment 00:00: (two) [place] 00 times Medical daily. Branch clobetasoL 2022-0 Yes [id number] Apply to Univers 0.05 % 6-01 area(s) 2 ity of ointment 00:00: (two) [place] 00 times Medical daily. Branch clobetasoL 2022-0 Yes [id number] Apply to [facility] 0.05 % 6-01 area(s) 2 ity of ointment 00:00: (two) [place] 00 times Medical daily. Branch clobetasoL 2022-0 Yes [id number] Apply to Univers 0.05 % 6-01 area(s) 2 ity of ointment 00:00: (two) [place] 00 times Medical daily. Branch clobetasoL 2022-0 Yes [id number] Apply to Univers 0.05 % 6-01 area(s) 2 ity of ointment 00:00: (two) [place] 00 times Medical daily. Branch clobetasoL 2022-0 Yes [id number] Apply to Univers 0.05 % 6-01 area(s) 2 ity of ointment 00:00: (two) [place] times Medical daily. Branch clobetasoL 2022-0 Yes [id number] Apply to Univers 0.05 % 6-01 area(s) 2 ity of ointment 00:00: (two) [place] times Medical daily. Branch clobetasoL 2022-0 Yes [id number] Apply to Univers 0.05 % 6-01 area(s) 2 ity of ointment 00:00: (two) [place] 00 times Medical daily. Branch clobetasoL 2022-0 Yes [id number] Apply to Univers 0.05 % 6-01 area(s) 2 ity of ointment 00:00: (two) [place] 00 times Medical daily. Branch clobetasoL 2022-0 Yes [id number] Apply to Univers 0.05 % 6-01 area(s) 2 ity of ointment 00:00: (two) [place] times Medical daily. Branch clobetasoL 2022-0 Yes [id number] Apply to [facility] 0.05 % 6-01 area(s) 2 ity of ointment 00:00: (two) [place] 00 times Medical daily. Branch clobetasoL 2022-0 Yes [id number] Apply to Univers 0.05 % 6-01 area(s) 2 ity of ointment 00:00: (two) [place] 00 times Medical daily. Branch clobetasoL 2022-0 Yes [id number] Apply to Univers 0.05 % 6-01 area(s) 2 ity of ointment 00:00: (two) [place] 00 times Medical daily. Branch clobetasoL 2022-0 Yes [id number] Apply to [facility] 0.05 % 6-01 area(s) 2 ity of ointment 00:00: (two) [place] 00 times Medical daily. Branch clobetasoL 2022-0 Yes [id number] Apply to [facility] 0.05 % 6-01 area(s) 2 ity of ointment 00:00: (two) [place] 00 times Medical daily. Branch clobetasoL 2022-0 Yes [id number] Apply to [facility] 0.05 % 6-01 area(s) 2 ity of ointment 00:00: (two) [place] 00 times Medical daily. Branch clobetasoL 2022-0 Yes [id number] Apply to [facility] 0.05 % 6-01 area(s) 2 ity of ointment 00:00: (two) [place] 00 times Medical daily. Branch clobetasoL 2022-0 Yes [id number] Apply to Univers 0.05 % 6-01 area(s) 2 ity of ointment 00:00: (two) [place] 00 times Medical daily. Branch clobetasoL 2022-0 Yes [id number] Apply to [facility] 0.05 % 6-01 area(s) 2 ity of ointment 00:00: (two) [place] 00 times Medical daily. Branch clobetasoL 2022-0 Yes [id number] Apply to [facility] 0.05 % 6-01 area(s) 2 ity of ointment 00:00: (two) [place] 00 times Medical daily. Branch clobetasoL 2022-0 Yes [id number] Apply to [facility] 0.05 % 6-01 area(s) 2 ity of ointment 00:00: (two) [place] 00 times Medical daily. Branch clobetasoL Yes [id number] Apply to [facility] 0.05 % 6-01 area(s) 2 ity of ointment 00:00: (two) [place] 00 times Medical daily. Branch clobetasoL Yes [id number] Apply to [facility] 0.05 % 6-01 area(s) 2 ity of ointment 00:00: (two) [place] 00 times Medical daily. Branch telmisartan Yes [id number] 0.5 tablet [facility] -hydrochlor 4-28 po once ity o f othiazide 00:00: daily [place] 40-12.5 mg 00 Medical per tablet Branch metformin Yes [id number] 500mg Take 1 [facility] ER 500 mg 4-28 tablet by ity o f 24 hr 00:00: mouth [place] tablet 00 daily with Medical breakfast. Branch lancets Yes [id number] Check Univ ers (ONE TOUCH 4-28 glucose ity of DELICA) 33 00:00: once daily [place] gauge Misc 00 before Medical breakfast; Branch ICD-10 code E11.9 blood sugar Yes [id number] Check [facility] diagnostic 4-28 glucose ity of (ONETOUCH 00:00: once daily [place] ULTRA BLUE 00 before Medical TEST STRIP) breakfast; Br anch strip ICD-10 code E11.9 Blood-Gluco Yes [id number] Check [facility] se Meter 4-28 glucose ity of (ONETOUCH 00:00: once daily [place] ULTRA2 00 before Medical METER) Kit breakfast; [facility] Diagnosis code E11.9 telmisartan Yes [id number] 0.5 tablet [facility] -hydrochlor 4-28 po once ity o f othiazide 00:00: daily [place] 40-12.5 mg 00 Medical per tablet Branch metformin Yes [id number] 500mg Take 1 [facility] ER 500 mg 4-28 tablet by ity o f 24 hr 00:00: mouth [place] tablet 00 daily with Medical breakfast. Branch lancets Yes [id number] Check Univ ers (ONE TOUCH 4-28 glucose ity of DELICA) 33 00:00: once daily [place] gauge Misc 00 before Medical breakfast; Branch ICD-10 code E11.9 blood sugar 0 Yes [id number] Check [facility] diagnostic 4-28 glucose ity of (ONETOUCH 00:00: once daily [place] ULTRA BLUE 00 before Medical TEST STRIP) breakfast; Br anch strip ICD-10 code E11.9 Blood-Gluco 0 Yes [id number] Check [facility] se Meter 4-28 glucose ity of (ONETOUCH 00:00: once daily [place] ULTRA2 00 before Medical METER) Kit breakfast; [facility] Diagnosis code E11.9 telmisartan Yes [id number] 0.5 tablet [facility] -hydrochlor 4-28 po once ity o f othiazide 00:00: daily [place] 40-12.5 mg 00 Medical per tablet Branch metformin Yes [id number] 500mg Take 1 [facility] ER 500 mg 4-28 tablet by ity o f 24 hr 00:00: mouth [place] tablet 00 daily with Medical breakfast. Branch lancets Yes [id number] Check [facility] ers (ONE TOUCH 4-28 glucose ity of DELICA) 33 00:00: once daily [place] gauge Misc 00 before Medical breakfast; Branch ICD-10 code E11.9 blood sugar Yes [id number] Check [facility] diagnostic 4-28 glucose ity of (ONETOUCH 00:00: once daily [place] ULTRA BLUE 00 before Medical TEST STRIP) breakfast; Br anch strip ICD-10 code E11.9 Blood-Gluco Yes [id number] Check [facility] se Meter 4-28 glucose ity of (ONETOUCH 00:00: once daily [place] ULTRA2 00 before Medical METER) Kit breakfast; [facility] Diagnosis code E11.9 telmisartan Yes [id number] 0.5 tablet [facility] -hydrochlor 4-28 po once ity o f othiazide 00:00: daily [place] 40-12.5 mg 00 Medical per tablet Branch metformin Yes [id number] 500mg Take 1 [facility] ER 500 mg 4-28 tablet by ity o f 24 hr 00:00: mouth [place] tablet 00 daily with Medical breakfast. Branch lancets Yes [id number] Check Univ ers (ONE TOUCH 4-28 glucose ity of DELICA) 33 00:00: once daily [place] gauge Misc 00 before Medical breakfast; Branch ICD-10 code E11.9 blood sugar 2021-0 Yes [id number] Check [facility] diagnostic 4-28 glucose ity of (ONETOUCH 00:00: once daily [place] ULTRA BLUE 00 before Medical TEST STRIP) breakfast; Br anch strip ICD-10 code E11.9 Blood-Gluco 2021-0 Yes [id number] Check [facility] se Meter 4-28 glucose ity of (ONETOUCH 00:00: once daily [place] ULTRA2 00 before Medical METER) Kit breakfast; [facility] Diagnosis code E11.9 telmisartan Yes [id number] 0.5 tablet [facility] -hydrochlor 4-28 po once ity o f othiazide 00:00: daily [place] 40-12.5 mg 00 Medical per tablet Branch metformin Yes [id number] 500mg Take 1 [facility] ER 500 mg 4-28 tablet by ity o f 24 hr 00:00: mouth [place] tablet 00 daily with Medical breakfast. Branch lancets Yes [id number] Check [facility] ers (ONE TOUCH 4-28 glucose ity of [place]ICA) 33 00:00: once daily [place] gauge Misc 00 before Medical breakfast; Branch ICD-10 code E11.9 blood sugar Yes [id number] Check [facility] diagnostic 4-28 glucose ity of (ONETOUCH 00:00: once daily [place] ULTRA BLUE 00 before Medical TEST STRIP) breakfast; Br anch strip ICD-10 code E11.9 Blood-Gluco 2021-0 Yes [id number] Check [facility] se Meter 4-28 glucose ity of (ONETOUCH 00:00: once daily [place] ULTRA2 00 before Medical METER) Kit breakfast; [facility] Diagnosis code E11.9 telmisartan 2021- Yes [id number] 0.5 tablet [facility] -hydrochlor 4-28 po once ity o f othiazide 00:00: daily [place] 40-12.5 mg 00 Medical per tablet Branch metformin Yes [id number] 500mg Take 1 [facility] ER 500 mg 4-28 tablet by ity o f 24 hr 00:00: mouth [place] tablet 00 daily with Medical breakfast. Branch lancets Yes [id number] Check [facility] ers (ONE TOUCH 4-28 glucose ity of [place]) 33 00:00: once daily [place] gauge Misc 00 before Medical breakfast; Branch ICD-10 code E11.9 blood sugar 0 Yes [id number] Check [facility] diagnostic 4-28 glucose ity of (ONETOUCH 00:00: once daily [place] ULTRA BLUE 00 before Medical TEST STRIP) breakfast; Br anch strip ICD-10 code E11.9 Blood-Gluco 0 Yes [id number] Check [facility] se Meter 4-28 glucose ity of (ONETOUCH 00:00: once daily [place] ULTRA2 00 before Medical METER) Kit breakfast; [facility] Diagnosis code E11.9 telmisartan Yes [id number] 0.5 tablet [facility] -hydrochlor 4-28 po once ity o f othiazide 00:00: daily [place] 40-12.5 mg 00 Medical per tablet Branch metformin Yes [id number] 500mg Take 1 [facility] ER 500 mg 4-28 tablet by ity o f 24 hr 00:00: mouth [place] tablet 00 daily with Medical breakfast. Branch lancets Yes [id number] Check [facility] ers (ONE TOUCH 4-28 glucose ity of [place]) 33 00:00: once daily [place] gauge Misc 00 before Medical breakfast; Branch ICD-10 code E11.9 blood sugar Yes [id number] Check [facility] diagnostic 4-28 glucose ity of (ONETOUCH 00:00: once daily [place] ULTRA BLUE 00 before Medical TEST STRIP) breakfast; Br anch strip ICD-10 code E11.9 Blood-Gluco Yes [id number] Check [facility] se Meter 4-28 glucose ity of (ONETOUCH 00:00: once daily [place] ULTRA2 00 before Medical METER) Kit breakfast; [facility] Diagnosis code E11.9 telmisartan Yes [id number] 0.5 tablet [facility] -hydrochlor 4-28 po once ity o f othiazide 00:00: daily [place] 40-12.5 mg 00 Medical per tablet Branch metformin Yes [id number] 500mg Take 1 [facility] ER 500 mg 4-28 tablet by ity o f 24 hr 00:00: mouth [place] tablet 00 daily with Medical breakfast. Branch lancets Yes [id number] Check [facility] ers (ONE TOUCH 4-28 glucose ity of [place]) 33 00:00: once daily [place] gauge Misc 00 before Medical breakfast; Branch ICD-10 code E11.9 blood sugar 0 Yes [id number] Check [facility] diagnostic 4-28 glucose ity of (ONETOUCH 00:00: once daily [place] ULTRA BLUE 00 before Medical TEST STRIP) breakfast; Br anch strip ICD-10 code E11.9 Blood-Gluco Yes [id number] Check [facility] se Meter 4-28 glucose ity of (ONETOUCH 00:00: once daily [place] ULTRA2 00 before Medical METER) Kit breakfast; [facility] Diagnosis code E11.9 telmisartan Yes [id number] 0.5 tablet [facility] -hydrochlor 4-28 po once ity o f othiazide 00:00: daily [place] 40-12.5 mg 00 Medical per tablet Branch metformin Yes [id number] 500mg Take 1 [facility] ER 500 mg 4-28 tablet by ity o f 24 hr 00:00: mouth [place] tablet 00 daily with Medical breakfast. Branch lancets Yes [id number] Check [facility] ers (ONE TOUCH 4-28 glucose ity of [place]) 33 00:00: once daily [place] gauge Misc 00 before Medical breakfast; Branch ICD-10 code E11.9 blood sugar Yes [id number] Check [facility] diagnostic 4-28 glucose ity of (ONETOUCH 00:00: once daily [place] ULTRA BLUE 00 before Medical TEST STRIP) breakfast; Br anch strip ICD-10 code E11.9 Blood-Gluco Yes [id number] Check [facility] se Meter 4-28 glucose ity of (ONETOUCH 00:00: once daily [place] ULTRA2 00 before Medical METER) Kit breakfast; [facility] Diagnosis code E11.9 telmisartan 2021-0 Yes [id number] 0.5 tablet [facility] -hydrochlor 4-28 po once ity o f othiazide 00:00: daily [place] 40-12.5 mg 00 Medical per tablet Branch metformin Yes [id number] 500mg Take 1 [facility] ER 500 mg 4-28 tablet by ity o f 24 hr 00:00: mouth [place] tablet 00 daily with Medical breakfast. Branch lancets Yes [id number] Check [facility] ers (ONE TOUCH 4-28 glucose ity of [place]) 33 00:00: once daily [place] gauge Misc 00 before Medical breakfast; Branch ICD-10 code E11.9 blood sugar Yes [id number] Check [facility] diagnostic 4-28 glucose ity of (ONETOUCH 00:00: once daily [place] ULTRA BLUE 00 before Medical TEST STRIP) breakfast; Br anch strip ICD-10 code E11.9 Blood-Gluco Yes [id number] Check [facility] se Meter 4-28 glucose ity of (ONETOUCH 00:00: once daily [place] ULTRA2 00 before Medical METER) Kit breakfast; [facility] Diagnosis code E11.9 telmisartan Yes [id number] 0.5 tablet [facility] -hydrochlor 4-28 po once ity o f othiazide 00:00: daily [place] 40-12.5 mg 00 Medical per tablet Branch metformin Yes [id number] 500mg Take 1 [facility] ER 500 mg 4-28 tablet by ity o f 24 hr 00:00: mouth [place] tablet 00 daily with Medical breakfast. Branch lancets Yes [id number] Check [facility] ers (ONE TOUCH 4-28 glucose ity of [place]) 33 00:00: once daily [place] gauge Misc 00 before Medical breakfast; Branch ICD-10 code E11.9 blood sugar Yes [id number] Check [facility] diagnostic 4-28 glucose ity of (ONETOUCH 00:00: once daily [place] ULTRA BLUE 00 before Medical TEST STRIP) breakfast; Br anch strip ICD-10 code E11.9 Blood-Gluco Yes [id number] Check [facility] se Meter 4-28 glucose ity of (ONETOUCH 00:00: once daily [place] ULTRA2 00 before Medical METER) Kit breakfast; [facility] Diagnosis code E11.9 telmisartan Yes [id number] 0.5 tablet [facility] -hydrochlor 4-28 po once ity o f othiazide 00:00: daily [place] 40-12.5 mg 00 Medical per tablet Branch metformin Yes [id number] 500mg Take 1 [facility] ER 500 mg 4-28 tablet by ity o f 24 hr 00:00: mouth [place] tablet 00 daily with Medical breakfast. Branch lancets Yes [id number] Check [facility] ers (ONE TOUCH 4-28 glucose ity of [place]) 33 00:00: once daily [place] gauge Misc 00 before Medical breakfast; Branch ICD-10 code E11.9 blood sugar Yes [id number] Check [facility] diagnostic 4-28 glucose ity of (ONETOUCH 00:00: once daily [place] ULTRA BLUE 00 before Medical TEST STRIP) breakfast; Br anch strip ICD-10 code E11.9 Blood-Gluco Yes [id number] Check [facility] se Meter 4-28 glucose ity of (ONETOUCH 00:00: once daily [place] ULTRA2 00 before Medical METER) Kit breakfast; [facility] Diagnosis code E11.9 telmisartan Yes [id number] 0.5 tablet [facility] -hydrochlor 4-28 po once ity o f othiazide 00:00: daily [place] 40-12.5 mg 00 Medical per tablet Branch metformin Yes [id number] 500mg Take 1 [facility] ER 500 mg 4-28 tablet by ity o f 24 hr 00:00: mouth [place] tablet 00 daily with Medical breakfast. Branch lancets Yes [id number] Check [facility] ers (ONE TOUCH 4-28 glucose ity of [place]) 33 00:00: once daily [place] gauge Misc 00 before Medical breakfast; Branch ICD-10 code E11.9 blood sugar Yes [id number] Check [facility] diagnostic 4-28 glucose ity of (ONETOUCH 00:00: once daily [place] ULTRA BLUE 00 before Medical TEST STRIP) breakfast; Br anch strip ICD-10 code E11.9 Blood-Gluco Yes [id number] Check [facility] se Meter 4-28 glucose ity of (ONETOUCH 00:00: once daily [place] ULTRA2 00 before Medical METER) Kit breakfast; [facility] Diagnosis code E11.9 telmisartan Yes [id number] 0.5 tablet [facility] -hydrochlor 4-28 po once ity o f othiazide 00:00: daily [place] 40-12.5 mg 00 Medical per tablet Branch metformin Yes [id number] 500mg Take 1 [facility] ER 500 mg 4-28 tablet by ity o f 24 hr 00:00: mouth [place] tablet 00 daily with Medical breakfast. Branch lancets Yes [id number] Check [facility] ers (ONE TOUCH 4-28 glucose ity of [place]) 33 00:00: once daily [place] gauge Misc 00 before Medical breakfast; Branch ICD-10 code E11.9 blood sugar Yes [id number] Check [facility] diagnostic 4-28 glucose ity of (ONETOUCH 00:00: once daily [place] ULTRA BLUE 00 before Medical TEST STRIP) breakfast; Br anch strip ICD-10 code E11.9 Blood-Gluco Yes [id number] Check [facility] se Meter 4-28 glucose ity of (ONETOUCH 00:00: once daily [place] ULTRA2 00 before Medical METER) Kit breakfast; [facility] Diagnosis code E11.9 telmisartan Yes [id number] 0.5 tablet [facility] -hydrochlor 4-28 po once ity o f othiazide 00:00: daily [place] 40-12.5 mg 00 Medical per tablet Branch metformin Yes [id number] 500mg Take 1 [facility] ER 500 mg 4-28 tablet by ity o f 24 hr 00:00: mouth [place] tablet 00 daily with Medical breakfast. Branch lancets Yes [id number] Check [facility] ers (ONE TOUCH 4-28 glucose ity of [place]) 33 00:00: once daily [place] gauge Misc 00 before Medical breakfast; Branch ICD-10 code E11.9 blood sugar Yes [id number] Check [facility] diagnostic 4-28 glucose ity of (ONETOUCH 00:00: once daily [place] ULTRA BLUE 00 before Medical TEST STRIP) breakfast; Br anch strip ICD-10 code E11.9 Blood-Gluco Yes [id number] Check [facility] se Meter 4-28 glucose ity of (ONETOUCH 00:00: once daily [place] ULTRA2 00 before Medical METER) Kit breakfast; [facility] Diagnosis code E11.9 telmisartan Yes [id number] 0.5 tablet [facility] -hydrochlor 4-28 po once ity o f othiazide 00:00: daily [place] 40-12.5 mg 00 Medical per tablet Branch metformin Yes [id number] 500mg Take 1 [facility] ER 500 mg 4-28 tablet by ity o f 24 hr 00:00: mouth [place] tablet 00 daily with Medical breakfast. Branch lancets Yes [id number] Check [facility] ers (ONE TOUCH 4-28 glucose ity of [place]) 33 00:00: once daily [place] gauge Misc 00 before Medical breakfast; Branch ICD-10 code E11.9 blood sugar Yes [id number] Check [facility] diagnostic 4-28 glucose ity of (ONETOUCH 00:00: once daily [place] ULTRA BLUE 00 before Medical TEST STRIP) breakfast; Br anch strip ICD-10 code E11.9 Blood-Gluco Yes [id number] Check [facility] se Meter 4-28 glucose ity of (ONETOUCH 00:00: once daily [place] ULTRA2 00 before Medical METER) Kit breakfast; [facility] Diagnosis code E11.9 telmisartan Yes [id number] 0.5 tablet [facility] -hydrochlor 4-28 po once ity o f othiazide 00:00: daily [place] 40-12.5 mg 00 Medical per tablet Branch metformin Yes [id number] 500mg Take 1 [facility] ER 500 mg 4-28 tablet by ity o f 24 hr 00:00: mouth [place] tablet 00 daily with Medical breakfast. Branch lancets Yes [id number] Check [facility] ers (ONE TOUCH 4-28 glucose ity of [place]) 33 00:00: once daily [place] gauge Misc 00 before Medical breakfast; Branch ICD-10 code E11.9 blood sugar Yes [id number] Check [facility] diagnostic 4-28 glucose ity of (ONETOUCH 00:00: once daily [place] ULTRA BLUE 00 before Medical TEST STRIP) breakfast; Br anch strip ICD-10 code E11.9 Blood-Gluco Yes [id number] Check [facility] se Meter 4-28 glucose ity of (ONETOUCH 00:00: once daily [place] ULTRA2 00 before Medical METER) Kit breakfast; [facility] Diagnosis code E11.9 telmisartan Yes [id number] 0.5 tablet [facility] -hydrochlor 4-28 po once ity o f othiazide 00:00: daily [place] 40-12.5 mg 00 Medical per tablet Branch metformin Yes [id number] 500mg Take 1 [facility] ER 500 mg 4-28 tablet by ity o f 24 hr 00:00: mouth [place] tablet 00 daily with Medical breakfast. Branch lancets Yes [id number] Check [facility] ers (ONE TOUCH 4-28 glucose ity of [place]) 33 00:00: once daily [place] gauge Misc 00 before Medical breakfast; Branch ICD-10 code E11.9 blood sugar Yes [id number] Check [facility] diagnostic 4-28 glucose ity of (ONETOUCH 00:00: once daily [place] ULTRA BLUE 00 before Medical TEST STRIP) breakfast; Br anch strip ICD-10 code E11.9 Blood-Gluco Yes [id number] Check [facility] se Meter 4-28 glucose ity of (ONETOUCH 00:00: once daily [place] ULTRA2 00 before Medical METER) Kit breakfast; [facility] Diagnosis code E11.9 telmisartan Yes [id number] 0.5 tablet [facility] -hydrochlor 4-28 po once ity o f othiazide 00:00: daily [place] 40-12.5 mg 00 Medical per tablet Branch metformin Yes [id number] 500mg Take 1 [facility] ER 500 mg 4-28 tablet by ity o f 24 hr 00:00: mouth [place] tablet 00 daily with Medical breakfast. Branch lancets Yes [id number] Check [facility] ers (ONE TOUCH 4-28 glucose ity of [place]) 33 00:00: once daily [place] gauge Misc 00 before Medical breakfast; Branch ICD-10 code E11.9 blood sugar Yes [id number] Check [facility] diagnostic 4-28 glucose ity of (ONETOUCH 00:00: once daily [place] ULTRA BLUE 00 before Medical TEST STRIP) breakfast; Br anch strip ICD-10 code E11.9 Blood-Gluco Yes [id number] Check [facility] se Meter 4-28 glucose ity of (ONETOUCH 00:00: once daily [place] ULTRA2 00 before Medical METER) Kit breakfast; [facility] Diagnosis code E11.9 telmisartan Yes [id number] 0.5 tablet [facility] -hydrochlor 4-28 po once ity o f othiazide 00:00: daily [place] 40-12.5 mg 00 Medical per tablet Branch metformin Yes [id number] 500mg Take 1 [facility] ER 500 mg 4-28 tablet by ity o f 24 hr 00:00: mouth [place] tablet 00 daily with Medical breakfast. Branch lancets Yes [id number] Check [facility] ers (ONE TOUCH 4-28 glucose ity of [place]) 33 00:00: once daily [place] gauge Misc 00 before Medical breakfast; Branch ICD-10 code E11.9 blood sugar Yes [id number] Check [facility] diagnostic 4-28 glucose ity of (ONETOUCH 00:00: once daily [place] ULTRA BLUE 00 before Medical TEST STRIP) breakfast; Br anch strip ICD-10 code E11.9 Blood-Gluco Yes [id number] Check [facility] se Meter 4-28 glucose ity of (ONETOUCH 00:00: once daily [place] ULTRA2 00 before Medical METER) Kit breakfast; [facility] Diagnosis code E11.9 telmisartan Yes [id number] 0.5 tablet [facility] -hydrochlor 4-28 po once ity o f othiazide 00:00: daily [place] 40-12.5 mg 00 Medical per tablet Branch metformin Yes [id number] 500mg Take 1 [facility] ER 500 mg 4-28 tablet by ity o f 24 hr 00:00: mouth [place] tablet 00 daily with Medical breakfast. Branch lancets Yes [id number] Check [facility] ers (ONE TOUCH 4-28 glucose ity of [place]) 33 00:00: once daily [place] gauge Misc 00 before Medical breakfast; Branch ICD-10 code E11.9 blood sugar Yes [id number] Check [facility] diagnostic 4-28 glucose ity of (ONETOUCH 00:00: once daily [place] ULTRA BLUE 00 before Medical TEST STRIP) breakfast; Br anch strip ICD-10 code E11.9 Blood-Gluco Yes [id number] Check [facility] se Meter 4-28 glucose ity of (ONETOUCH 00:00: once daily [place] ULTRA2 00 before Medical METER) Kit breakfast; [facility] Diagnosis code E11.9 telmisartan Yes [id number] 0.5 tablet [facility] -hydrochlor 4-28 po once ity o f othiazide 00:00: daily [place] 40-12.5 mg 00 Medical per tablet Branch metformin Yes [id number] 500mg Take 1 [facility] ER 500 mg 4-28 tablet by ity o f 24 hr 00:00: mouth [place] tablet 00 daily with Medical breakfast. Branch lancets Yes [id number] Check [facility] ers (ONE TOUCH 4-28 glucose ity of [place]) 33 00:00: once daily [place] gauge Misc 00 before Medical breakfast; Branch ICD-10 code E11.9 blood sugar Yes [id number] Check [facility] diagnostic 4-28 glucose ity of (ONETOUCH 00:00: once daily [place] ULTRA BLUE 00 before Medical TEST STRIP) breakfast; Br anch strip ICD-10 code E11.9 Blood-Gluco Yes [id number] Check [facility] se Meter 4-28 glucose ity of (ONETOUCH 00:00: once daily [place] ULTRA2 00 before Medical METER) Kit breakfast; [facility] Diagnosis code E11.9 telmisartan Yes [id number] 0.5 tablet [facility] -hydrochlor 4-28 po once ity o f othiazide 00:00: daily [place] 40-12.5 mg 00 Medical per tablet Branch metformin Yes [id number] 500mg Take 1 [facility] ER 500 mg 4-28 tablet by ity o f 24 hr 00:00: mouth [place] tablet 00 daily with Medical breakfast. Branch lancets Yes [id number] Check [facility] ers (ONE TOUCH 4-28 glucose ity of [place]) 33 00:00: once daily [place] gauge Misc 00 before Medical breakfast; Branch ICD-10 code E11.9 blood sugar Yes [id number] Check [facility] diagnostic 4-28 glucose ity of (ONETOUCH 00:00: once daily [place] ULTRA BLUE 00 before Medical TEST STRIP) breakfast; Br anch strip ICD-10 code E11.9 Blood-Gluco Yes [id number] Check [facility] se Meter 4-28 glucose ity of (ONETOUCH 00:00: once daily [place] ULTRA2 00 before Medical METER) Kit breakfast; [facility] Diagnosis code E11.9 telmisartan Yes [id number] 0.5 tablet [facility] -hydrochlor 4-28 po once ity o f othiazide 00:00: daily [place] 40-12.5 mg 00 Medical per tablet Branch metformin Yes [id number] 500mg Take 1 [facility] ER 500 mg 4-28 tablet by ity o f 24 hr 00:00: mouth [place] tablet 00 daily with Medical breakfast. Branch lancets Yes [id number] Check [facility] ers (ONE TOUCH 4-28 glucose ity of [place]) 33 00:00: once daily [place] gauge Misc 00 before Medical breakfast; Branch ICD-10 code E11.9 blood sugar Yes [id number] Check [facility] diagnostic 4-28 glucose ity of (ONETOUCH 00:00: once daily [place] ULTRA BLUE 00 before Medical TEST STRIP) breakfast; Br anch strip ICD-10 code E11.9 Blood-Gluco Yes [id number] Check [facility] se Meter 4-28 glucose ity of (ONETOUCH 00:00: once daily [place] ULTRA2 00 before Medical METER) Kit breakfast; [facility] Diagnosis code E11.9 telmisartan Yes [id number] 0.5 tablet [facility] -hydrochlor 4-28 po once ity o f othiazide 00:00: daily [place] 40-12.5 mg 00 Medical per tablet Branch metformin Yes [id number] 500mg Take 1 [facility] ER 500 mg 4-28 tablet by ity o f 24 hr 00:00: mouth [place] tablet 00 daily with Medical breakfast. Branch lancets Yes [id number] Check [facility] ers (ONE TOUCH 4-28 glucose ity of [place]) 33 00:00: once daily [place] gauge Misc 00 before Medical breakfast; Branch ICD-10 code E11.9 blood sugar Yes [id number] Check [facility] diagnostic 4-28 glucose ity of (ONETOUCH 00:00: once daily [place] ULTRA BLUE 00 before Medical TEST STRIP) breakfast; Br anch strip ICD-10 code E11.9 Blood-Gluco Yes [id number] Check [facility] se Meter 4-28 glucose ity of (ONETOUCH 00:00: once daily [place] ULTRA2 00 before Medical METER) Kit breakfast; [facility] Diagnosis code E11.9 telmisartan Yes [id number] 0.5 tablet [facility] -hydrochlor 4-28 po once ity o f othiazide 00:00: daily [place] 40-12.5 mg 00 Medical per tablet Branch metformin Yes [id number] 500mg Take 1 [facility] ER 500 mg 4-28 tablet by ity o f 24 hr 00:00: mouth [place] tablet 00 daily with Medical breakfast. Branch lancets Yes [id number] Check [facility] ers (ONE TOUCH 4-28 glucose ity of [place]) 33 00:00: once daily [place] gauge Misc 00 before Medical breakfast; Branch ICD-10 code E11.9 blood sugar Yes [id number] Check [facility] diagnostic 4-28 glucose ity of (ONETOUCH 00:00: once daily [place] ULTRA BLUE 00 before Medical TEST STRIP) breakfast; Br anch strip ICD-10 code E11.9 Blood-Gluco Yes [id number] Check [facility] se Meter 4-28 glucose ity of (ONETOUCH 00:00: once daily [place] ULTRA2 00 before Medical METER) Kit breakfast; [facility] Diagnosis code E11.9 telmisartan Yes [id number] 0.5 tablet [facility] -hydrochlor 4-28 po once ity o f othiazide 00:00: daily [place] 40-12.5 mg 00 Medical per tablet Branch metformin Yes [id number] 500mg Take 1 [facility] ER 500 mg 4-28 tablet by ity o f 24 hr 00:00: mouth [place] tablet 00 daily with Medical breakfast. Branch lancets Yes [id number] Check [facility] ers (ONE TOUCH 4-28 glucose ity of [place]) 33 00:00: once daily [place] gauge Misc 00 before Medical breakfast; Branch ICD-10 code E11.9 blood sugar Yes [id number] Check [facility] diagnostic 4-28 glucose ity of (ONETOUCH 00:00: once daily [place] ULTRA BLUE 00 before Medical TEST STRIP) breakfast; Br anch strip ICD-10 code E11.9 Blood-Gluco Yes [id number] Check [facility] se Meter 4-28 glucose ity of (ONETOUCH 00:00: once daily [place] ULTRA2 00 before Medical METER) Kit breakfast; [facility] Diagnosis code E11.9 telmisartan Yes [id number] 0.5 tablet [facility] -hydrochlor 4-28 po once ity o f othiazide 00:00: daily [place] 40-12.5 mg 00 Medical per tablet Branch metformin Yes [id number] 500mg Take 1 [facility] ER 500 mg 4-28 tablet by ity o f 24 hr 00:00: mouth [place] tablet 00 daily with Medical breakfast. Branch lancets Yes [id number] Check [facility] ers (ONE TOUCH 4-28 glucose ity of [place]) 33 00:00: once daily [place] gauge Misc 00 before Medical breakfast; Branch ICD-10 code E11.9 blood sugar Yes [id number] Check [facility] diagnostic 4-28 glucose ity of (ONETOUCH 00:00: once daily [place] ULTRA BLUE 00 before Medical TEST STRIP) breakfast; Br anch strip ICD-10 code E11.9 Blood-Gluco Yes [id number] Check [facility] se Meter 4-28 glucose ity of (ONETOUCH 00:00: once daily [place] ULTRA2 00 before Medical METER) Kit breakfast; [facility] Diagnosis code E11.9 telmisartan Yes [id number] 0.5 tablet [facility] -hydrochlor 4-28 po once ity o f othiazide 00:00: daily [place] 40-12.5 mg 00 Medical per tablet Branch metformin Yes [id number] 500mg Take 1 [facility] ER 500 mg 4-28 tablet by ity o f 24 hr 00:00: mouth [place] tablet 00 daily with Medical breakfast. Branch lancets Yes [id number] Check [facility] ers (ONE TOUCH 4-28 glucose ity of [place]) 33 00:00: once daily [place] gauge Misc 00 before Medical breakfast; Branch ICD-10 code E11.9 blood sugar Yes [id number] Check [facility] diagnostic 4-28 glucose ity of (ONETOUCH 00:00: once daily [place] ULTRA BLUE 00 before Medical TEST STRIP) breakfast; Br anch strip ICD-10 code E11.9 Blood-Gluco Yes [id number] Check [facility] se Meter 4-28 glucose ity of (ONETOUCH 00:00: once daily [place] ULTRA2 00 before Medical METER) Kit breakfast; [facility] Diagnosis code E11.9 telmisartan Yes [id number] 0.5 tablet [facility] -hydrochlor 4-28 po once ity o f othiazide 00:00: daily [place] 40-12.5 mg 00 Medical per tablet Branch metformin Yes [id number] 500mg Take 1 [facility] ER 500 mg 4-28 tablet by ity o f 24 hr 00:00: mouth [place] tablet 00 daily with Medical breakfast. Branch lancets Yes [id number] Check [facility] ers (ONE TOUCH 4-28 glucose ity of [place]) 33 00:00: once daily [place] gauge Misc 00 before Medical breakfast; Branch ICD-10 code E11.9 blood sugar Yes [id number] Check [facility] diagnostic 4-28 glucose ity of (ONETOUCH 00:00: once daily [place] ULTRA BLUE 00 before Medical TEST STRIP) breakfast; Br anch strip ICD-10 code E11.9 Blood-Gluco Yes [id number] Check [facility] se Meter 4-28 glucose ity of (ONETOUCH 00:00: once daily [place] ULTRA2 00 before Medical METER) Kit breakfast; [facility] Diagnosis code E11.9 telmisartan Yes [id number] 0.5 tablet [facility] -hydrochlor 4-28 po once ity o f othiazide 00:00: daily [place] 40-12.5 mg 00 Medical per tablet Branch metformin Yes [id number] 500mg Take 1 [facility] ER 500 mg 4-28 tablet by ity o f 24 hr 00:00: mouth [place] tablet 00 daily with Medical breakfast. Branch lancets Yes [id number] Check [facility] ers (ONE TOUCH 4-28 glucose ity of [place]) 33 00:00: once daily [place] gauge Misc 00 before Medical breakfast; Branch ICD-10 code E11.9 blood sugar Yes [id number] Check [facility] diagnostic 4-28 glucose ity of (ONETOUCH 00:00: once daily [place] ULTRA BLUE 00 before Medical TEST STRIP) breakfast; Br anch strip ICD-10 code E11.9 Blood-Gluco Yes [id number] Check [facility] se Meter 4-28 glucose ity of (ONETOUCH 00:00: once daily [place] ULTRA2 00 before Medical METER) Kit breakfast; [facility] Diagnosis code E11.9 telmisartan 2022-0 Yes [id number] 0.5 tablet [facility] -hydrochlor 4-28 po once ity o f othiazide 00:00: daily [place] 40-12.5 mg 00 Medical per tablet Branch metformin Yes [id number] 500mg Take 1 [facility] ER 500 mg 4-28 tablet by ity o f 24 hr 00:00: mouth [place] tablet 00 daily with Medical breakfast. Branch lancets Yes [id number] Check Univ ers (ONE TOUCH 4-28 glucose ity of [place]) 33 00:00: once daily [place] gauge Misc 00 before Medical breakfast; Branch ICD-10 code E11.9 blood sugar Yes [id number] Check [facility] diagnostic 4-28 glucose ity of (ONETOUCH 00:00: once daily [place] ULTRA BLUE 00 before Medical TEST STRIP) breakfast; Br anch strip ICD-10 code E11.9 Blood-Gluco Yes [id number] Check [facility] se Meter 4-28 glucose ity of (ONETOUCH 00:00: once daily [place] ULTRA2 00 before Medical METER) Kit breakfast; [facility] Diagnosis code E11.9 telmisartan Yes [id number] 0.5 tablet [facility] -hydrochlor 4-28 po once ity o f othiazide 00:00: daily [place] 40-12.5 mg 00 Medical per tablet Branch metformin Yes [id number] 500mg Take 1 [facility] ER 500 mg 4-28 tablet by ity o f 24 hr 00:00: mouth [place] tablet 00 daily with Medical breakfast. Branch lancets Yes [id number] Check Univ ers (ONE TOUCH 4-28 glucose ity of [place]) 33 00:00: once daily [place] gauge Misc 00 before Medical breakfast; Branch ICD-10 code E11.9 blood sugar Yes [id number] Check [facility] diagnostic 4-28 glucose ity of (ONETOUCH 00:00: once daily [place] ULTRA BLUE 00 before Medical TEST STRIP) breakfast; Br anch strip ICD-10 code E11.9 Blood-Gluco Yes [id number] Check [facility] se Meter 4-28 glucose ity of (ONETOUCH 00:00: once daily [place] ULTRA2 00 before Medical METER) Kit breakfast; [facility] Diagnosis code E11.9 telmisartan Yes [id number] 0.5 tablet [facility] -hydrochlor 4-28 po once ity o f othiazide 00:00: daily [place] 40-12.5 mg 00 Medical per tablet Branch metformin Yes [id number] 500mg Take 1 [facility] ER 500 mg 4-28 tablet by ity o f 24 hr 00:00: mouth [place] tablet 00 daily with Medical breakfast. Branch lancets Yes [id number] Check Univ ers (ONE TOUCH 4-28 glucose ity of [place]) 33 00:00: once daily [place] gauge Misc 00 before Medical breakfast; Branch ICD-10 code E11.9 blood sugar Yes [id number] Check [facility] diagnostic 4-28 glucose ity of (ONETOUCH 00:00: once daily [place] ULTRA BLUE 00 before Medical TEST STRIP) breakfast; Br anch strip ICD-10 code E11.9 Blood-Gluco Yes [id number] Check [facility] se Meter 4-28 glucose ity of (ONETOUCH 00:00: once daily [place] ULTRA2 00 before Medical METER) Kit breakfast; [facility] Diagnosis code E11.9 telmisartan Yes [id number] 0.5 tablet [facility] -hydrochlor 4-28 po once ity o f othiazide 00:00: daily [place] 40-12.5 mg 00 Medical per tablet Branch metformin Yes [id number] 500mg Take 1 [facility] ER 500 mg 4-28 tablet by ity o f 24 hr 00:00: mouth [place] tablet 00 daily with Medical breakfast. Branch lancets Yes [id number] Check Univ ers (ONE TOUCH 4-28 glucose ity of [place]) 33 00:00: once daily [place] gauge Misc 00 before Medical breakfast; Branch ICD-10 code E11.9 blood sugar Yes [id number] Check [facility] diagnostic 4-28 glucose ity of (ONETOUCH 00:00: once daily [place] ULTRA BLUE 00 before Medical TEST STRIP) breakfast; Br anch strip ICD-10 code E11.9 Blood-Gluco Yes [id number] Check [facility] se Meter 4-28 glucose ity of (ONETOUCH 00:00: once daily [place] ULTRA2 00 before Medical METER) Kit breakfast; [facility] Diagnosis code E11.9 telmisartan Yes [id number] 0.5 tablet [facility] -hydrochlor 4-28 po once ity o f othiazide 00:00: daily [place] 40-12.5 mg 00 Medical per tablet Branch metformin Yes [id number] 500mg Take 1 [facility] ER 500 mg 4-28 tablet by ity o f 24 hr 00:00: mouth [place] tablet 00 daily with Medical breakfast. Branch lancets Yes [id number] Check Univ ers (ONE TOUCH 4-28 glucose ity of [place]) 33 00:00: once daily [place] gauge Misc 00 before Medical breakfast; Branch ICD-10 code E11.9 blood sugar Yes [id number] Check [facility] diagnostic 4-28 glucose ity of (ONETOUCH 00:00: once daily [place] ULTRA BLUE 00 before Medical TEST STRIP) breakfast; Br anch strip ICD-10 code E11.9 Blood-Gluco Yes [id number] Check [facility] se Meter 4-28 glucose ity of (ONETOUCH 00:00: once daily [place] ULTRA2 00 before Medical METER) Kit breakfast; [facility] Diagnosis code E11.9 telmisartan Yes [id number] 0.5 tablet [facility] -hydrochlor 4-28 po once ity o f othiazide 00:00: daily [place] 40-12.5 mg 00 Medical per tablet Branch metformin Yes [id number] 500mg Take 1 [facility] ER 500 mg 4-28 tablet by ity o f 24 hr 00:00: mouth [place] tablet 00 daily with Medical breakfast. Branch lancets Yes [id number] Check [facility] ers (ONE TOUCH 4-28 glucose ity of [place]) 33 00:00: once daily [place] gauge Misc 00 before Medical breakfast; Branch ICD-10 code E11.9 blood sugar Yes [id number] Check [facility] diagnostic 4-28 glucose ity of (ONETOUCH 00:00: once daily [place] ULTRA BLUE 00 before Medical TEST STRIP) breakfast; Br anch strip ICD-10 code E11.9 Blood-Gluco Yes [id number] Check [facility] se Meter 4-28 glucose ity of (ONETOUCH 00:00: once daily [place] ULTRA2 00 before Medical METER) Kit breakfast; [facility] Diagnosis code E11.9 telmisartan Yes [id number] 0.5 tablet [facility] -hydrochlor 4-28 po once ity o f othiazide 00:00: daily [place] 40-12.5 mg 00 Medical per tablet Branch metformin Yes [id number] 500mg Take 1 [facility] ER 500 mg 4-28 tablet by ity o f 24 hr 00:00: mouth [place] tablet 00 daily with Medical breakfast. Branch lancets Yes [id number] Check [facility] ers (ONE TOUCH 4-28 glucose ity of [place]) 33 00:00: once daily [place] gauge Misc 00 before Medical breakfast; Branch ICD-10 code E11.9 blood sugar Yes [id number] Check [facility] diagnostic 4-28 glucose ity of (ONETOUCH 00:00: once daily [place] ULTRA BLUE 00 before Medical TEST STRIP) breakfast; Br anch strip ICD-10 code E11.9 Blood-Gluco Yes [id number] Check [facility] se Meter 4-28 glucose ity of (ONETOUCH 00:00: once daily [place] ULTRA2 00 before Medical METER) Kit breakfast; [facility] Diagnosis code E11.9 telmisartan Yes [id number] 0.5 tablet [facility] -hydrochlor 4-28 po once ity o f othiazide 00:00: daily [place] 40-12.5 mg 00 Medical per tablet Branch metformin Yes [id number] 500mg Take 1 [facility] ER 500 mg 4-28 tablet by ity o f 24 hr 00:00: mouth [place] tablet 00 daily with Medical breakfast. Branch lancets Yes [id number] Check [facility] ers (ONE TOUCH 4-28 glucose ity of [place]) 33 00:00: once daily [place] gauge Misc 00 before Medical breakfast; Branch ICD-10 code E11.9 blood sugar Yes [id number] Check [facility] diagnostic 4-28 glucose ity of (ONETOUCH 00:00: once daily [place] ULTRA BLUE 00 before Medical TEST STRIP) breakfast; Br anch strip ICD-10 code E11.9 Blood-Gluco Yes [id number] Check [facility] se Meter 4-28 glucose ity of (ONETOUCH 00:00: once daily [place] ULTRA2 00 before Medical METER) Kit breakfast; [facility] Diagnosis code E11.9 telmisartan Yes [id number] 0.5 tablet [facility] -hydrochlor 4-28 po once ity o f othiazide 00:00: daily [place] 40-12.5 mg 00 Medical per tablet Branch metformin Yes [id number] 500mg Take 1 [facility] ER 500 mg 4-28 tablet by ity o f 24 hr 00:00: mouth [place] tablet 00 daily with Medical breakfast. Branch lancets Yes [id number] Check [facility] ers (ONE TOUCH 4-28 glucose ity of [place]) 33 00:00: once daily [place] gauge Misc 00 before Medical breakfast; Branch ICD-10 code E11.9 blood sugar Yes [id number] Check [facility] diagnostic 4-28 glucose ity of (ONETOUCH 00:00: once daily [place] ULTRA BLUE 00 before Medical TEST STRIP) breakfast; Br anch strip ICD-10 code E11.9 Blood-Gluco Yes [id number] Check [facility] se Meter 4-28 glucose ity of (ONETOUCH 00:00: once daily [place] ULTRA2 00 before Medical METER) Kit breakfast; [facility] Diagnosis code E11.9 telmisartan Yes [id number] 0.5 tablet [facility] -hydrochlor 4-28 po once ity o f othiazide 00:00: daily [place] 40-12.5 mg 00 Medical per tablet Branch metformin Yes [id number] 500mg Take 1 [facility] ER 500 mg 4-28 tablet by ity o f 24 hr 00:00: mouth [place] tablet 00 daily with Medical breakfast. Branch lancets Yes [id number] Check [facility] ers (ONE TOUCH 4-28 glucose ity of [place]) 33 00:00: once daily [place] gauge Misc 00 before Medical breakfast; Branch ICD-10 code E11.9 blood sugar Yes [id number] Check [facility] diagnostic 4-28 glucose ity of (ONETOUCH 00:00: once daily [place] ULTRA BLUE 00 before Medical TEST STRIP) breakfast; Br anch strip ICD-10 code E11.9 Blood-Gluco Yes [id number] Check [facility] se Meter 4-28 glucose ity of (ONETOUCH 00:00: once daily [place] ULTRA2 00 before Medical METER) Kit breakfast; [facility] Diagnosis code E11.9 lancets 2021-0 Yes [id number] Check [facility] ers (ONE TOUCH 4-28 glucose ity of [place]) 33 00:00: once daily [place] gauge Misc 00 before Medical breakfast; Branch ICD-10 code E11.9 blood sugar 2021-0 Yes [id number] Check [facility] diagnostic 4-28 glucose ity of (ONETOUCH 00:00: once daily [place] ULTRA BLUE 00 before Medical TEST STRIP) breakfast; Br anch strip ICD-10 code E11.9 Blood-Gluco 2021-0 Yes [id number] Check [facility] se Meter 4-28 glucose ity of (ONETOUCH 00:00: once daily [place] ULTRA2 00 before Medical METER) Kit breakfast; [facility] Diagnosis code E11.9 lancets 2021-0 Yes [id number] Check [facility] ers (ONE TOUCH 4-28 glucose ity of [place]) 33 00:00: once daily [place] gauge Misc 00 before Medical breakfast; Branch ICD-10 code E11.9 blood sugar 2021-0 Yes [id number] Check [facility] diagnostic 4-28 glucose ity of (ONETOUCH 00:00: once daily [place] ULTRA BLUE 00 before Medical TEST STRIP) breakfast; Br anch strip ICD-10 code E11.9 Blood-Gluco 2021-0 Yes [id number] Check [facility] se Meter 4-28 glucose ity of (ONETOUCH 00:00: once daily [place] ULTRA2 00 before Medical METER) Kit breakfast; [facility] Diagnosis code E11.9 lancets 2021-0 Yes [id number] Check [facility] ers (ONE TOUCH 4-28 glucose ity of [place]) 33 00:00: once daily [place] gauge Misc 00 before Medical breakfast; Branch ICD-10 code E11.9 blood sugar 2021-0 Yes [id number] Check [facility] diagnostic 4-28 glucose ity of (ONETOUCH 00:00: once daily [place] ULTRA BLUE 00 before Medical TEST STRIP) breakfast; Br anch strip ICD-10 code E11.9 Blood-Gluco 2021-0 Yes [id number] Check [facility] se Meter 4-28 glucose ity of (ONETOUCH 00:00: once daily [place] ULTRA2 00 before Medical METER) Kit breakfast; [facility] Diagnosis code E11.9 lancets 2021-0 Yes [id number] Check [facility] ers (ONE TOUCH 4-28 glucose ity of [place]) 33 00:00: once daily [place] gauge Misc 00 before Medical breakfast; Branch ICD-10 code E11.9 blood sugar 2021-0 Yes [id number] Check [facility] diagnostic 4-28 glucose ity of (ONETOUCH 00:00: once daily [place] ULTRA BLUE 00 before Medical TEST STRIP) breakfast; Br anch strip ICD-10 code E11.9 Blood-Gluco 2021-0 Yes [id number] Check [facility] se Meter 4-28 glucose ity of (ONETOUCH 00:00: once daily [place] ULTRA2 00 before Medical METER) Kit breakfast; [facility] Diagnosis code E11.9 lancets Yes [id number] Check Univ ers (ONE TOUCH 4-28 glucose ity of [place]) 33 00:00: once daily [place] gauge Misc 00 before Medical breakfast; Branch ICD-10 code E11.9 blood sugar 2021-0 Yes [id number] Check [facility] diagnostic 4-28 glucose ity of (ONETOUCH 00:00: once daily [place] ULTRA BLUE 00 before Medical TEST STRIP) breakfast; Br anch strip ICD-10 code E11.9 Blood-Gluco 2021-0 Yes [id number] Check [facility] se Meter 4-28 glucose ity of (ONETOUCH 00:00: once daily [place] ULTRA2 00 before Medical METER) Kit breakfast; [facility] Diagnosis code E11.9 lancets Yes [id number] Check Univ ers (ONE TOUCH 4-28 glucose ity of [place]) 33 00:00: once daily [place] gauge Misc 00 before Medical breakfast; Branch ICD-10 code E11.9 blood sugar 2021-0 Yes [id number] Check [facility] diagnostic 4-28 glucose ity of (ONETOUCH 00:00: once daily [place] ULTRA BLUE 00 before Medical TEST STRIP) breakfast; Br anch strip ICD-10 code E11.9 Blood-Gluco 2021-0 Yes [id number] Check [facility] se Meter 4-28 glucose ity of (ONETOUCH 00:00: once daily [place] ULTRA2 00 before Medical METER) Kit breakfast; [facility] Diagnosis code E11.9 lancets 0 Yes [id number] Check Univ ers (ONE TOUCH 4-28 glucose ity of [place]) 33 00:00: once daily [place] gauge Misc 00 before Medical breakfast; Branch ICD-10 code E11.9 blood sugar 2021-0 Yes [id number] Check [facility] diagnostic 4-28 glucose ity of (ONETOUCH 00:00: once daily [place] ULTRA BLUE 00 before Medical TEST STRIP) breakfast; Br anch strip ICD-10 code E11.9 Blood-Gluco 2021-0 Yes [id number] Check [facility] se Meter 4-28 glucose ity of (ONETOUCH 00:00: once daily [place] ULTRA2 00 before Medical METER) Kit breakfast; [facility] Diagnosis code E11.9 lancets Yes [id number] Check [facility] ers (ONE TOUCH 4-28 glucose ity of [place]) 33 00:00: once daily [place] gauge Misc 00 before Medical breakfast; Branch ICD-10 code E11.9 blood sugar 2021- Yes [id number] Check [facility] diagnostic 4-28 glucose ity of (ONETOUCH 00:00: once daily [place] ULTRA BLUE 00 before Medical TEST STRIP) breakfast; Br anch strip ICD-10 code E11.9 Blood-Gluco 2021-0 Yes [id number] Check [facility] se Meter 4-28 glucose ity of (ONETOUCH 00:00: once daily [place] ULTRA2 00 before Medical METER) Kit breakfast; [facility] Diagnosis code E11.9 lancets 2021-0 Yes [id number] Check Univ ers (ONE TOUCH 4-28 glucose ity of [place]) 33 00:00: once daily [place] gauge Misc 00 before Medical breakfast; Branch ICD-10 code E11.9 blood sugar 2021-0 Yes [id number] Check [facility] diagnostic 4-28 glucose ity of (ONETOUCH 00:00: once daily [place] ULTRA BLUE 00 before Medical TEST STRIP) breakfast; Br anch strip ICD-10 code E11.9 Blood-Gluco 2021-0 Yes [id number] Check [facility] se Meter 4-28 glucose ity of (ONETOUCH 00:00: once daily [place] ULTRA2 00 before Medical METER) Kit breakfast; [facility] Diagnosis code E11.9 lancets 2021-0 Yes [id number] Check [facility] ers (ONE TOUCH 4-28 glucose ity of [place]) 33 00:00: once daily [place] gauge Misc 00 before Medical breakfast; Branch ICD-10 code E11.9 blood sugar 2021-0 Yes [id number] Check [facility] diagnostic 4-28 glucose ity of (ONETOUCH 00:00: once daily [place] ULTRA BLUE 00 before Medical TEST STRIP) breakfast; Br anch strip ICD-10 code E11.9 Blood-Gluco 2021-0 Yes [id number] Check [facility] se Meter 4-28 glucose ity of (ONETOUCH 00:00: once daily [place] ULTRA2 00 before Medical METER) Kit breakfast; [facility] Diagnosis code E11.9 lancets 2021-0 Yes [id number] Check [facility] ers (ONE TOUCH 4-28 glucose ity of [place]) 33 00:00: once daily [place] gauge Misc 00 before Medical breakfast; Branch ICD-10 code E11.9 blood sugar 2021-0 Yes [id number] Check [facility] diagnostic 4-28 glucose ity of (ONETOUCH 00:00: once daily [place] ULTRA BLUE 00 before Medical TEST STRIP) breakfast; Br anch strip ICD-10 code E11.9 Blood-Gluco 2021-0 Yes [id number] Check [facility] se Meter 4-28 glucose ity of (ONETOUCH 00:00: once daily [place] ULTRA2 00 before Medical METER) Kit breakfast; [facility] Diagnosis code E11.9 lancets 2021-0 Yes [id number] Check [facility] ers (ONE TOUCH 4-28 glucose ity of [place]) 33 00:00: once daily [place] gauge Misc 00 before Medical breakfast; Branch ICD-10 code E11.9 blood sugar 2021-0 Yes [id number] Check [facility] diagnostic 4-28 glucose ity of (ONETOUCH 00:00: once daily [place] ULTRA BLUE 00 before Medical TEST STRIP) breakfast; Br anch strip ICD-10 code E11.9 Blood-Gluco 2-0 Yes [id number] Check [facility] se Meter 4-28 glucose ity of (ONETOUCH 00:00: once daily [place] ULTRA2 00 before Medical METER) Kit breakfast; [facility] Diagnosis code E11.9 lancets 2021-0 Yes [id number] Check Univ ers (ONE TOUCH 4-28 glucose ity of [place]) 33 00:00: once daily [place] gauge Misc 00 before Medical breakfast; Branch ICD-10 code E11.9 blood sugar 2021-0 Yes [id number] Check [facility] diagnostic 4-28 glucose ity of (ONETOUCH 00:00: once daily [place] ULTRA BLUE 00 before Medical TEST STRIP) breakfast; Br anch strip ICD-10 code E11.9 Blood-Gluco 2021-0 Yes [id number] Check [facility] se Meter 4-28 glucose ity of (ONETOUCH 00:00: once daily [place] ULTRA2 00 before Medical METER) Kit breakfast; [facility] Diagnosis code E11.9 lancets 2021-0 Yes [id number] Check Univ ers (ONE TOUCH 4-28 glucose ity of [place]) 33 00:00: once daily [place] gauge Misc 00 before Medical breakfast; Branch ICD-10 code E11.9 blood sugar 2021-0 Yes [id number] Check [facility] diagnostic 4-28 glucose ity of (ONETOUCH 00:00: once daily [place] ULTRA BLUE 00 before Medical TEST STRIP) breakfast; Br anch strip ICD-10 code E11.9 Blood-Gluco 2021-0 Yes [id number] Check [facility] se Meter 4-28 glucose ity of (ONETOUCH 00:00: once daily [place] ULTRA2 00 before Medical METER) Kit breakfast; [facility] Diagnosis code E11.9 lancets 2021-0 Yes [id number] Check Univ ers (ONE TOUCH 4-28 glucose ity of [place]) 33 00:00: once daily [place] gauge Misc 00 before Medical breakfast; Branch ICD-10 code E11.9 blood sugar 2021-0 Yes [id number] Check [facility] diagnostic 4-28 glucose ity of (ONETOUCH 00:00: once daily [place] ULTRA BLUE 00 before Medical TEST STRIP) breakfast; Br anch strip ICD-10 code E11.9 Blood-Gluco 2021-0 Yes [id number] Check [facility] se Meter 4-28 glucose ity of (ONETOUCH 00:00: once daily [place] ULTRA2 00 before Medical METER) Kit breakfast; [facility] Diagnosis code E11.9 lancets 2021-0 Yes [id number] Check [facility] ers (ONE TOUCH 4-28 glucose ity of [place]) 33 00:00: once daily [place] gauge Misc 00 before Medical breakfast; Branch ICD-10 code E11.9 blood sugar 2021-0 Yes [id number] Check [facility] diagnostic 4-28 glucose ity of (ONETOUCH 00:00: once daily [place] ULTRA BLUE 00 before Medical TEST STRIP) breakfast; Br anch strip ICD-10 code E11.9 Blood-Gluco 2021-0 Yes [id number] Check [facility] se Meter 4-28 glucose ity of (ONETOUCH 00:00: once daily [place] ULTRA2 00 before Medical METER) Kit breakfast; [facility] Diagnosis code E11.9 lancets 2021-0 Yes [id number] Check Univ ers (ONE TOUCH 4-28 glucose ity of [place]) 33 00:00: once daily [place] gauge Misc 00 before Medical breakfast; Branch ICD-10 code E11.9 blood sugar 2021-0 Yes [id number] Check [facility] diagnostic 4-28 glucose ity of (ONETOUCH 00:00: once daily [place] ULTRA BLUE 00 before Medical TEST STRIP) breakfast; Br anch strip ICD-10 code E11.9 Blood-Gluco 2021-0 Yes [id number] Check [facility] se Meter 4-28 glucose ity of (ONETOUCH 00:00: once daily [place] ULTRA2 00 before Medical METER) Kit breakfast; [facility] Diagnosis code E11.9 lancets 2021-0 Yes [id number] Check Univ ers (ONE TOUCH 4-28 glucose ity of [place]) 33 00:00: once daily [place] gauge Misc 00 before Medical breakfast; Branch ICD-10 code E11.9 blood sugar 2021-0 Yes [id number] Check [facility] diagnostic 4-28 glucose ity of (ONETOUCH 00:00: once daily [place] ULTRA BLUE 00 before Medical TEST STRIP) breakfast; Br anch strip ICD-10 code E11.9 Blood-Gluco 2021-0 Yes [id number] Check [facility] se Meter 4-28 glucose ity of (ONETOUCH 00:00: once daily [place] ULTRA2 00 before Medical METER) Kit breakfast; [facility] Diagnosis code E11.9 lancets 2021-0 Yes [id number] Check Univ ers (ONE TOUCH 4-28 glucose ity of [place]) 33 00:00: once daily [place] gauge Misc 00 before Medical breakfast; Branch ICD-10 code E11.9 blood sugar 2022-0 Yes [id number] Check [facility] diagnostic 4-28 glucose ity of (ONETOUCH 00:00: once daily [place] ULTRA BLUE 00 before Medical TEST STRIP) breakfast; Br anch strip ICD-10 code E11.9 Blood-Gluco 2021-0 Yes [id number] Check [facility] se Meter 4-28 glucose ity of (ONETOUCH 00:00: once daily [place] ULTRA2 00 before Medical METER) Kit breakfast; [facility] Diagnosis code E11.9 lancets Yes [id number] Check Univ ers (ONE TOUCH 4-28 glucose ity of [place]) 33 00:00: once daily [place] gauge Misc 00 before Medical breakfast; Branch ICD-10 code E11.9 blood sugar 2021- Yes [id number] Check [facility] diagnostic 4-28 glucose ity of (ONETOUCH 00:00: once daily [place] ULTRA BLUE 00 before Medical TEST STRIP) breakfast; Br anch strip ICD-10 code E11.9 Blood-Gluco Yes [id number] Check [facility] se Meter 4-28 glucose ity of (ONETOUCH 00:00: once daily [place] ULTRA2 00 before Medical METER) Kit breakfast; [facility] Diagnosis code E11.9 lancets 0 Yes [id number] Check Univ ers (ONE TOUCH 4-28 glucose ity of [place]) 33 00:00: once daily [place] gauge Misc 00 before Medical breakfast; Branch ICD-10 code E11.9 blood sugar 2021-0 Yes [id number] Check [facility] diagnostic 4-28 glucose ity of (ONETOUCH 00:00: once daily [place] ULTRA BLUE 00 before Medical TEST STRIP) breakfast; Br anch strip ICD-10 code E11.9 Blood-Gluco 2021-0 Yes [id number] Check [facility] se Meter 4-28 glucose ity of (ONETOUCH 00:00: once daily [place] ULTRA2 00 before Medical METER) Kit breakfast; [facility] Diagnosis code E11.9 lancets 0 Yes [id number] Check Univ ers (ONE TOUCH 4-28 glucose ity of [place]) 33 00:00: once daily [place] gauge Misc 00 before Medical breakfast; Branch ICD-10 code E11.9 blood sugar 2021-0 Yes [id number] Check [facility] diagnostic 4-28 glucose ity of (ONETOUCH 00:00: once daily [place] ULTRA BLUE 00 before Medical TEST STRIP) breakfast; Br anch strip ICD-10 code E11.9 Blood-Gluco 2021-0 Yes [id number] Check [facility] se Meter 4-28 glucose ity of (ONETOUCH 00:00: once daily [place] ULTRA2 00 before Medical METER) Kit breakfast; [facility] Diagnosis code E11.9 lancets 2021-0 Yes [id number] Check Univ ers (ONE TOUCH 4-28 glucose ity of [place]) 33 00:00: once daily [place] gauge Misc 00 before Medical breakfast; Branch ICD-10 code E11.9 blood sugar 2021-0 Yes [id number] Check [facility] diagnostic 4-28 glucose ity of (ONETOUCH 00:00: once daily [place] ULTRA BLUE 00 before Medical TEST STRIP) breakfast; Br anch strip ICD-10 code E11.9 Blood-Gluco 2021-0 Yes [id number] Check [facility] se Meter 4-28 glucose ity of (ONETOUCH 00:00: once daily [place] ULTRA2 00 before Medical METER) Kit breakfast; [facility] Diagnosis code E11.9 lancets 2021-0 Yes [id number] Check Univ ers (ONE TOUCH 4-28 glucose ity of [place]) 33 00:00: once daily [place] gauge Misc 00 before Medical breakfast; Branch ICD-10 code E11.9 blood sugar 2021-0 Yes [id number] Check [facility] diagnostic 4-28 glucose ity of (ONETOUCH 00:00: once daily [place] ULTRA BLUE 00 before Medical TEST STRIP) breakfast; Br anch strip ICD-10 code E11.9 Blood-Gluco 2021-0 Yes [id number] Check [facility] se Meter 4-28 glucose ity of (ONETOUCH 00:00: once daily [place] ULTRA2 00 before Medical METER) Kit breakfast; [facility] Diagnosis code E11.9 lancets 2021-0 Yes [id number] Check Univ ers (ONE TOUCH 4-28 glucose ity of [place]) 33 00:00: once daily [place] gauge Misc 00 before Medical breakfast; Branch ICD-10 code E11.9 blood sugar 2021-0 Yes [id number] Check [facility] diagnostic 4-28 glucose ity of (ONETOUCH 00:00: once daily [place] ULTRA BLUE 00 before Medical TEST STRIP) breakfast; Br anch strip ICD-10 code E11.9 Blood-Gluco 2021-0 Yes [id number] Check [facility] se Meter 4-28 glucose ity of (ONETOUCH 00:00: once daily [place] ULTRA2 00 before Medical METER) Kit breakfast; [facility] Diagnosis code E11.9 lancets 2021-0 Yes [id number] Check Univ ers (ONE TOUCH 4-28 glucose ity of [place]) 33 00:00: once daily [place] gauge Misc 00 before Medical breakfast; Branch ICD-10 code E11.9 blood sugar 2021-0 Yes [id number] Check [facility] diagnostic 4-28 glucose ity of (ONETOUCH 00:00: once daily [place] ULTRA BLUE 00 before Medical TEST STRIP) breakfast; Br anch strip ICD-10 code E11.9 Blood-Gluco 2021-0 Yes [id number] Check [facility] se Meter 4-28 glucose ity of (ONETOUCH 00:00: once daily [place] ULTRA2 00 before Medical METER) Kit breakfast; [facility] Diagnosis code E11.9 lancets 2021-0 Yes [id number] Check Univ ers (ONE TOUCH 4-28 glucose ity of [place]) 33 00:00: once daily [place] gauge Misc 00 before Medical breakfast; Branch ICD-10 code E11.9 blood sugar 2021-0 Yes [id number] Check [facility] diagnostic 4-28 glucose ity of (ONETOUCH 00:00: once daily [place] ULTRA BLUE 00 before Medical TEST STRIP) breakfast; Br anch strip ICD-10 code E11.9 Blood-Gluco 2021-0 Yes [id number] Check [facility] se Meter 4-28 glucose ity of (ONETOUCH 00:00: once daily [place] ULTRA2 00 before Medical METER) Kit breakfast; [facility] Diagnosis code E11.9 lancets 2021-0 Yes [id number] Check Univ ers (ONE TOUCH 4-28 glucose ity of [place]) 33 00:00: once daily [place] gauge Misc 00 before Medical breakfast; Branch ICD-10 code E11.9 blood sugar 2021-0 Yes [id number] Check [facility] diagnostic 4-28 glucose ity of (ONETOUCH 00:00: once daily [place] ULTRA BLUE 00 before Medical TEST STRIP) breakfast; Br anch strip ICD-10 code E11.9 Blood-Gluco Yes [id number] Check [facility] se Meter 09-17 glucose ity of (ONETOUCH 00:00: once daily [place] ULTRA2 00 before Medical METER) Kit breakfast; [facility] Diagnosis code E11.9 telmisartan 2022- No [id number] 0.5 tablet [facility] -hydrochlor 09-17- po once ity of othiazide 00:00: 00:00 daily [place] 40-12.5 mg 00 :00 Medical per tablet Branch metformin 2022- No [id number] 500mg Take 1 [facility] ER 500 mg 09-17- tablet by ity of 24 hr 00:00: 00:00 mouth [place] tablet 00 :00 daily with Medical breakfast. Branch telmisartan 2022- No [id number] 0.5 tablet [facility] -hydrochlor 09-17- po once ity of othiazide 00:00: 00:00 daily [place] 40-12.5 mg 00 :00 Medical per tablet Branch metformin 2022- No [id number] 500mg Take 1 [facility] ER 500 mg 09-17- tablet by ity of 24 hr 00:00: 00:00 mouth [place] tablet 00 :00 daily with Medical breakfast. Branch colchicine Yes [id number] Take 2 [facility] 0.6 mg 3-14 tabs po x ity of tablet 00:00: 1 dose PRN gout Medical attack, Branch may take 1 tab 1 hour later if still in pain; Max 3 tabs per 24 hours. naproxen Yes [id number] 500mg Take 1 U nivers 500 mg 3-14 tablet by ity of tablet 00:00: mouth 2 00 (two) Medical times Branch daily with meals. colchicine Yes [id number] Take 2 [facility] 0.6 mg 3-14 tabs po x ity of tablet 00:00: 1 dose PRN gout Medical attack, Branch may take 1 tab 1 hour later if still in pain; Max 3 tabs per 24 hours. naproxen Yes [id number] 500mg Take 1 U nivers 500 mg 3-14 tablet by ity of tablet 00:00: mouth 2 [place] 00 (two) Medical times Branch daily with meals. colchicine 2-0 Yes [id number] Take 2 [facility] 0.6 mg 3-14 tabs po x ity of tablet 00:00: 1 dose PRN gout Medical attack, Branch may take 1 tab 1 hour later if still in pain; Max 3 tabs per 24 hours. naproxen 2022-0 Yes [id number] 500mg Take 1 U nivers 500 mg 3-14 tablet by ity of tablet 00:00: mouth () Medical times Branch daily with meals. colchicine 2-0 Yes [id number] Take 2 [facility] 0.6 mg 3-14 tabs po x ity of tablet 00:00: 1 dose PRN gout Medical attack, Branch may take 1 tab 1 hour later if still in pain; Max 3 tabs per 24 hours. naproxen 2-0 Yes [id number] 500mg Take 1 U nivers 500 mg 3-14 tablet by ity of tablet 00:00: mouth () Medical times Branch daily with meals. colchicine 2021-0 Yes [id number] Take 2 [facility] 0.6 mg 3-14 tabs po x ity of tablet 00:00: 1 dose PRN gout Medical attack, Branch may take 1 tab 1 hour later if still in pain; Max 3 tabs per 24 hours. naproxen 2-0 Yes [id number] 500mg Take 1 U nivers 500 mg 3-14 tablet by ity of tablet 00:00: mouth () Medical times Branch daily with meals. colchicine 2-0 Yes [id number] Take 2 [facility] 0[facility] 3-14 tabs po x it[facility] of tablet 00:00: 1 dose PRN gout Medical attack, Branch may take 1 tab 1 hour later if still in pain; Max 3 tabs per 24 hours. naproxen 2022-0 Yes [id number] 500mg Take 1 [facility] 500 mg 3-14 tablet by [facility] of tablet 00:00: mouth () Medical times Branch daily with meals. colchicine 2022-0 Yes [id number] Take 2 [facility] 0[facility]6 mg 3-14 tabs po x it[facility] of tablet 00:00: 1 dose PRN gout Medical attack, Branch may take 1 tab 1 hour later if still in pain; Max 3 tabs per 24 hours. naproxen 2022-0 Yes [id number] 500mg Take 1 [facility] 500 mg 3-14 tablet by [facility] of tablet 00:00: mouth (two) Medical times Branch daily with meals. colchicine 2-0 Yes [id number] Take 2 [facility] 0[facility]6 mg 3-14 tabs po x [facility] of tablet 00:00: 1 dose PRN gout Medical attack, Branch may take 1 tab 1 hour later if still in pain; Max 3 tabs per 24 hours. naproxen 2022-0 Yes [id number] 500mg Take 1 [facility] 500 mg 3-14 tablet by [facility] of tablet 00:00: mouth () Medical times Branch daily with meals. colchicine 2021-0 Yes [id number] Take 2 [facility] 0[facility]6 mg 3-14 tabs po x [facility] of tablet 00:00: 1 dose PRN gout Medical attack, Branch may take 1 tab 1 hour later if still in pain; Max 3 tabs per 24 hours. naproxen 2-0 Yes [id number] 500mg Take 1 [facility] 500 mg 3-14 tablet by [facility] of tablet 00:00: mouth () Medical times Branch daily with meals. colchicine 2021-0 Yes [id number] Take 2 [facility] 0[facility]6 mg 3-14 tabs po x [facility] of tablet 00:00: 1 dose PRN gout Medical attack, Branch may take 1 tab 1 hour later if still in pain; Max 3 tabs per 24 hours. naproxen 2-0 Yes [id number] 500mg Take 1 [facility] 500 mg 3-14 tablet by [facility] of tablet 00:00: mouth (two) Medical times Branch daily with meals. colchicine 2022-0 Yes [id number] Take 2 [facility] 0[facility]6 mg 3-14 tabs po x [facility] of tablet 00:00: 1 dose PRN gout Medical attack, Branch may take 1 tab 1 hour later if still in pain; Max 3 tabs per 24 hours. naproxen 2022-0 Yes [id number] 500mg Take 1 [facility] 500 mg 3-14 tablet by [facility] tablet 00:00: mouth (two) Medical times Branch daily with meals. colchicine 2021-0 Yes [id number] Take 2 [facility] 0[facility]6 mg 3-14 tabs po x [facility] of tablet 00:00: 1 dose PRN gout Medical attack, Branch may take 1 tab 1 hour later if still in pain; Max 3 tabs per 24 hours. naproxen 2-0 Yes [id number] 500mg Take 1 [facility] 500 mg 3-14 tablet by [facility] of tablet 00:00: mouth () Medical times Branch daily with meals. colchicine 2021-0 Yes [id number] Take 2 [facility] 0[facility]6 mg 3-14 tabs po x [facility] of tablet 00:00: 1 dose PRN gout Medical attack, Branch may take 1 tab 1 hour later if still in pain; Max 3 tabs per 24 hours. naproxen 2021-0 Yes [id number] 500mg Take 1 [facility] 500 mg 3-14 tablet by [facility] of tablet 00:00: mouth () Medical times Branch daily with meals. colchicine 2021-0 Yes [id number] Take 2 [facility] 0[facility] mg 3-14 tabs po x [facility] of tablet 00:00: 1 dose PRN gout Medical attack, Branch may take 1 tab 1 hour later if still in pain; Max 3 tabs per 24 hours. naproxen 2021-0 Yes [id number] 500mg Take 1 [facility] 500 mg 3-14 tablet by [facility] of tablet 00:00: mouth () Medical times Branch daily with meals. colchicine 2021-0 Yes [id number] Take 2 [facility] 0[facility]6 mg 3-14 tabs po x [facility] of tablet 00:00: 1 dose PRN gout Medical attack, Branch may take 1 tab 1 hour later if still in pain; Max 3 tabs per 24 hours. naproxen 2-0 Yes [id number] 500mg Take 1 [facility] 500 mg 3-14 tablet by [facility] of tablet 00:00: mouth () Medical times Branch daily with meals. colchicine 2-0 Yes [id number] Take 2 [facility] 0[facility] mg 3-14 tabs po x [facility] of tablet 00:00: 1 dose PRN gout Medical attack, Branch may take 1 tab 1 hour later if still in pain; Max 3 tabs per 24 hours. naproxen 2022-0 Yes [id number] 500mg Take 1 [facility] 500 mg 3-14 tablet by [facility] of tablet 00:00: mouth (two) Medical times Branch daily with meals. colchicine 2-0 Yes [id number] Take 2 [facility] 0[facility]6 mg 3-14 tabs po x [facility] of tablet 00:00: 1 dose PRN gout Medical attack, Branch may take 1 tab 1 hour later if still in pain; Max 3 tabs per 24 hours. naproxen 2022-0 Yes [id number] 500mg Take 1 [facility] 500 mg 3-14 tablet by [facility] of tablet 00:00: mouth () Medical times Branch daily with meals. colchicine 2-0 Yes [id number] Take 2 [facility] 0[facility]6 mg 3-14 tabs po x [facility] of tablet 00:00: 1 dose PRN gout Medical attack, Branch may take 1 tab 1 hour later if still in pain; Max 3 tabs per 24 hours. naproxen 2022-0 Yes [id number] 500mg Take 1 [facility] 500 mg 3-14 tablet by [facility] of tablet 00:00: mouth () Medical times Branch daily with meals. colchicine 2-0 Yes [id number] Take 2 [facility] 0[facility] mg 3-14 tabs po x [facility] of tablet 00:00: 1 dose PRN gout Medical attack, Branch may take 1 tab 1 hour later if still in pain; Max 3 tabs per 24 hours. naproxen 2022-0 Yes [id number] 500mg Take 1 [facility] 500 mg 3-14 tablet by [facility] of tablet 00:00: mouth (two) Medical times Branch daily with meals. colchicine 2022-0 Yes [id number] Take 2 [facility] 0[facility]6 mg 3-14 tabs po x [facility] of tablet 00:00: 1 dose PRN gout Medical attack, Branch may take 1 tab 1 hour later if still in pain; Max 3 tabs per 24 hours. naproxen 2022-0 Yes [id number] 500mg Take 1 [facility] 500 mg 3-14 tablet by [facility] of tablet 00:00: mouth (two) Medical times Branch daily with meals. colchicine 2-0 Yes [id number] Take 2 [facility] 0[facility]6 mg 3-14 tabs po x [facility] of tablet 00:00: 1 dose PRN gout Medical attack, Branch may take 1 tab 1 hour later if still in pain; Max 3 tabs per 24 hours. naproxen 2-0 Yes [id number] 500mg Take 1 [facility] 500 mg 3-14 tablet by [facility] of tablet 00:00: mouth () Medical times Branch daily with meals. colchicine 2-0 Yes [id number] Take 2 [facility] 0[facility] mg 3-14 tabs po x [facility] of tablet 00:00: 1 dose PRN gout Medical attack, Branch may take 1 tab 1 hour later if still in pain; Max 3 tabs per 24 hours. naproxen 2-0 Yes [id number] 500mg Take 1 [facility] 500 mg 3-14 tablet by [facility] tablet 00:00: mouth [facility] Medical times Branch daily with meals. colchicine 2021-0 Yes [id number] Take 2 [facility] 0.6 mg 3-14 tabs po x [facility] of tablet 00:00: 1 dose PRN gout Medical attack, Branch may take 1 tab 1 hour later if still in pain; Max 3 tabs per 24 hours. naproxen 2021-0 Yes [id number] 500mg Take 1 [facility] 500 mg 3-14 tablet by [facility] of tablet 00:00: mouth () Medical times Branch daily with meals. colchicine 2-0 Yes [id number] Take 2 [facility] 0[facility]6 mg 3-14 tabs po x it[facility] of tablet 00:00: 1 dose PRN gout Medical attack, Branch may take 1 tab 1 hour later if still in pain; Max 3 tabs per 24 hours. naproxen 2022-0 Yes [id number] 500mg Take 1 [facility] 500 mg 3-14 tablet by [facility] of tablet 00:00: mouth () Medical times Branch daily with meals. colchicine 2022-0 Yes [id number] Take 2 [facility] 0[facility]6 mg 3-14 tabs po x it[facility] of tablet 00:00: 1 dose PRN gout Medical attack, Branch may take 1 tab 1 hour later if still in pain; Max 3 tabs per 24 hours. naproxen 2022-0 Yes [id number] 500mg Take 1 [facility] 500 mg 3-14 tablet by [facility] of tablet 00:00: mouth (two) Medical times Branch daily with meals. colchicine 2-0 Yes [id number] Take 2 [facility] 0[facility]6 mg 3-14 tabs po x it[facility] of tablet 00:00: 1 dose PRN gout Medical attack, Branch may take 1 tab 1 hour later if still in pain; Max 3 tabs per 24 hours. naproxen 2-0 Yes [id number] 500mg Take 1 [facility] 500 mg 3-14 tablet by [facility] of tablet 00:00: mouth () Medical times Branch daily with meals. colchicine 2021-0 Yes [id number] Take 2 [facility] 0[facility]6 mg 3-14 tabs po x it[facility] of tablet 00:00: 1 dose PRN gout Medical attack, Branch may take 1 tab 1 hour later if still in pain; Max 3 tabs per 24 hours. naproxen 2-0 Yes [id number] 500mg Take 1 [facility] 500 mg 3-14 tablet by [facility] of tablet 00:00: mouth () Medical times Branch daily with meals. colchicine 2021-0 Yes [id number] Take 2 [facility] 0[facility] mg 3-14 tabs po x [facility] of tablet 00:00: 1 dose PRN gout Medical attack, Branch may take 1 tab 1 hour later if still in pain; Max 3 tabs per 24 hours. naproxen 2-0 Yes [id number] 500mg Take 1 [facility] 500 mg 3-14 tablet by [facility] of tablet 00:00: mouth (two) Medical times Branch daily with meals. colchicine 2-0 Yes [id number] Take 2 [facility] 0[facility] mg 3-14 tabs po x it[facility] of tablet 00:00: 1 dose PRN gout Medical attack, Branch may take 1 tab 1 hour later if still in pain; Max 3 tabs per 24 hours. naproxen 2022-0 Yes [id number] 500mg Take 1 [facility] 500 mg 3-14 tablet by [facility] of tablet 00:00: mouth (two) Medical times Branch daily with meals. colchicine 2-0 Yes [id number] Take 2 [facility] 0[facility]6 mg 3-14 tabs po x it[facility] of tablet 00:00: 1 dose PRN gout Medical attack, Branch may take 1 tab 1 hour later if still in pain; Max 3 tabs per 24 hours. naproxen 2-0 Yes [id number] 500mg Take 1 [facility] 500 mg 3-14 tablet by [facility] of tablet 00:00: mouth () Medical times Branch daily with meals. colchicine 2-0 Yes [id number] Take 2 [facility] 0[facility] mg 3-14 tabs po x it[facility] of tablet 00:00: 1 dose PRN gout Medical attack, Branch may take 1 tab 1 hour later if still in pain; Max 3 tabs per 24 hours. naproxen 2021-0 Yes [id number] 500mg Take 1 [facility] 500 mg 3-14 tablet by [facility] of tablet 00:00: mouth () Medical times Branch daily with meals. colchicine 2021-0 Yes [id number] Take 2 [facility] 0[facility]6 mg 3-14 tabs po x it[facility] of tablet 00:00: 1 dose PRN gout Medical attack, Branch may take 1 tab 1 hour later if still in pain; Max 3 tabs per 24 hours. naproxen 2021-0 Yes [id number] 500mg Take 1 [facility] 500 mg 3-14 tablet by [facility] of tablet 00:00: mouth () Medical times Branch daily with meals. colchicine 2-0 Yes [id number] Take 2 [facility] 0.6 mg 3-14 tabs po x it[facility] of tablet 00:00: 1 dose PRN gout Medical attack, Branch may take 1 tab 1 hour later if still in pain; Max 3 tabs per 24 hours. naproxen 2022-0 Yes [id number] 500mg Take 1 [facility] 500 mg 3-14 tablet by [facility] of tablet 00:00: mouth () Medical times Branch daily with meals. colchicine 2022-0 Yes [id number] Take 2 [facility] 0.6 mg 3-14 tabs po x it[facility] of tablet 00:00: 1 dose PRN gout Medical attack, Branch may take 1 tab 1 hour later if still in pain; Max 3 tabs per 24 hours. naproxen 2022-0 Yes [id number] 500mg Take 1 [facility] 500 mg 3-14 tablet by [facility] of tablet 00:00: mouth (two) Medical times Branch daily with meals. colchicine 2-0 Yes [id number] Take 2 [facility] 0.6 mg 3-14 tabs po x it[facility] of tablet 00:00: 1 dose PRN gout Medical attack, Branch may take 1 tab 1 hour later if still in pain; Max 3 tabs per 24 hours. naproxen 2-0 Yes [id number] 500mg Take 1 [facility] 500 mg 3-14 tablet by [facility] of tablet 00:00: mouth () Medical times Branch daily with meals. colchicine 2021-0 Yes [id number] Take 2 [facility] 0.6 mg 3-14 tabs po x it[facility] of tablet 00:00: 1 dose PRN gout Medical attack, Branch may take 1 tab 1 hour later if still in pain; Max 3 tabs per 24 hours. naproxen 2-0 Yes [id number] 500mg Take 1 [facility] 500 mg 3-14 tablet by [facility] of tablet 00:00: mouth () Medical times Branch daily with meals. colchicine 2021-0 Yes [id number] Take 2 [facility] 0.6 mg 3-14 tabs po x it[facility] of tablet 00:00: 1 dose PRN gout Medical attack, Branch may take 1 tab 1 hour later if still in pain; Max 3 tabs per 24 hours. naproxen 2-0 Yes [id number] 500mg Take 1 [facility] 500 mg 3-14 tablet by [facility] of tablet 00:00: mouth (two) Medical times Branch daily with meals. colchicine 2-0 Yes [id number] Take 2 [facility] 0.6 mg 3-14 tabs po x it[facility] of tablet 00:00: 1 dose PRN gout Medical attack, Branch may take 1 tab 1 hour later if still in pain; Max 3 tabs per 24 hours. naproxen 2022-0 Yes [id number] 500mg Take 1 [facility] 500 mg 3-14 tablet by [facility] of tablet 00:00: mouth (two) Medical times Branch daily with meals. colchicine 2021-0 Yes [id number] Take 2 [facility] 0.6 mg 3-14 tabs po x it[facility] of tablet 00:00: 1 dose PRN gout Medical attack, Branch may take 1 tab 1 hour later if still in pain; Max 3 tabs per 24 hours. naproxen 2021-0 Yes [id number] 500mg Take 1 [facility] 500 mg 3-14 tablet by [facility] of tablet 00:00: mouth (two) Medical times Branch daily with meals. colchicine 2021-0 Yes [id number] Take 2 [facility] 0.6 mg 3-14 tabs po x it[facility] of tablet 00:00: 1 dose PRN gout Medical attack, Branch may take 1 tab 1 hour later if still in pain; Max 3 tabs per 24 hours. naproxen 2021-0 Yes [id number] 500mg Take 1 [facility] 500 mg 3-14 tablet by [facility] of tablet 00:00: mouth (two) Medical times Branch daily with meals. colchicine 2021-0 Yes [id number] Take 2 [facility] 0.6 mg 3-14 tabs po x it[facility] of tablet 00:00: 1 dose PRN gout Medical attack, Branch may take 1 tab 1 hour later if still in pain; Max 3 tabs per 24 hours. naproxen 2021-0 Yes [id number] 500mg Take 1 [facility] 500 mg 3-14 tablet by [facility] of tablet 00:00: mouth (two) Medical times Branch daily with meals. colchicine 2021-0 Yes [id number] Take 2 [facility] 0.6 mg 3-14 tabs po x it[facility] of tablet 00:00: 1 dose PRN gout Medical attack, Branch may take 1 tab 1 hour later if still in pain; Max 3 tabs per 24 hours. colchicine 2021-0 Yes [id number] Take 2 [facility] 0.6 mg 3-14 tabs po x it[facility] of tablet 00:00: 1 dose PRN gout Medical attack, Branch may take 1 tab 1 hour later if still in pain; Max 3 tabs per 24 hours. colchicine 2021-0 Yes [id number] Take 2 [facility] 0.6 mg 3-14 tabs po x it[facility] of tablet 00:00: 1 dose PRN gout Medical attack, Branch may take 1 tab 1 hour later if still in pain; Max 3 tabs per 24 hours. colchicine 2021-0 Yes [id number] Take 2 [facility] 0.6 mg 3-14 tabs po x it[facility] of tablet 00:00: 1 dose PRN gout Medical attack, Branch may take 1 tab 1 hour later if still in pain; Max 3 tabs per 24 hours. colchicine 2021-0 Yes [id number] Take 2 [facility] 0.6 mg 3-14 tabs po x it[facility] of tablet 00:00: 1 dose PRN gout Medical attack, Branch may take 1 tab 1 hour later if still in pain; Max 3 tabs per 24 hours. colchicine 2021-0 Yes [id number] Take 2 [facility] 0.6 mg 3-14 tabs po x it[facility] of tablet 00:00: 1 dose PR gout Medical attack, Branch may take 1 tab 1 hour later if still in pain; Max 3 tabs per 24 hours. colchicine 2021-0 Yes [id number] Take 2 [facility] 0[facility]6 mg 3-14 tabs po x [facility]:00[facility] may take 1 tab 1 hour later if still in pain; Max 3 tabs per 24 hours. colchicine 2021-0 Yes [id number] Take 2 [facility] 0.6 mg 3-14 tabs po x ity of tablet 00:00: 1 dose PR gout Medical attack, Branch may take 1 tab 1 hour later if still in pain; Max 3 tabs per 24 hours. colchicine 2021-0 Yes [id number] Take 2 [facility] 0.6 mg 3-14 tabs po x ity of tablet 00:00: 1 dose PRN gout Medical attack, Branch may take 1 tab 1 hour later if still in pain; Max 3 tabs per 24 hours. colchicine 2021-0 Yes [id number] Take 2 [facility] 0.6 mg 3-14 tabs po x ity of tablet 00:00: 1 dose PR gout Medical attack, Branch may take 1 tab 1 hour later if still in pain; Max 3 tabs per 24 hours. colchicine 2021-0 Yes [id number] Take 2 [facility] 0.6 mg 3-14 tabs po x ity of tablet 00:00: 1 dose PR gout Medical attack, Branch may take 1 tab 1 hour later if still in pain; Max 3 tabs per 24 hours. colchicine 2021-0 Yes [id number] Take 2 [facility] 0.6 mg 3-14 tabs po x ity of tablet 00:00: 1 dose PRN gout Medical attack, Branch may take 1 tab 1 hour later if still in pain; Max 3 tabs per 24 hours. colchicine 2021-0 Yes [id number] Take 2 [facility] 0.6 mg 3-14 tabs po x ity of tablet 00:00: 1 dose PRN gout Medical attack, Branch may take 1 tab 1 hour later if still in pain; Max 3 tabs per 24 hours. colchicine 2021-0 Yes [id number] Take 2 [facility] 0.6 mg 3-14 tabs po x ity of tablet 00:00: 1 dose PRN gout Medical attack, Branch may take 1 tab 1 hour later if still in pain; Max 3 tabs per 24 hours. colchicine 2021-0 Yes [id number] Take 2 [facility] 0.6 mg 3-14 tabs po x ity of tablet 00:00: 1 dose PRN gout Medical attack, Branch may take 1 tab 1 hour later if still in pain; Max 3 tabs per 24 hours. colchicine 2021-0 Yes [id number] Take 2 [facility] 0.6 mg 3-14 tabs po x ity of tablet 00:00: 1 dose PRN gout Medical attack, Branch may take 1 tab 1 hour later if still in pain; Max 3 tabs per 24 hours. colchicine 2021-0 Yes [id number] Take 2 [facility] 0.6 mg 3-14 tabs po x ity of tablet 00:00: 1 dose PRN gout Medical attack, Branch may take 1 tab 1 hour later if still in pain; Max 3 tabs per 24 hours. colchicine 2021-0 Yes [id number] Take 2 [facility] 0.6 mg 3-14 tabs po x ity of tablet 00:00: 1 dose PRN gout Medical attack, Branch may take 1 tab 1 hour later if still in pain; Max 3 tabs per 24 hours. colchicine 2021-0 Yes [id number] Take 2 [facility] 0.6 mg 3-14 tabs po x ity of tablet 00:00: 1 dose PRN gout Medical attack, Branch may take 1 tab 1 hour later if still in pain; Max 3 tabs per 24 hours. colchicine 2021-0 Yes [id number] Take 2 [facility] 0.6 mg 3-14 tabs po x ity of tablet 00:00: 1 dose PRN gout Medical attack, Branch may take 1 tab 1 hour later if still in pain; Max 3 tabs per 24 hours. colchicine 2021-0 Yes [id number] Take 2 [facility] 0.6 mg 3-14 tabs po x ity of tablet 00:00: 1 dose PRN gout Medical attack, Branch may take 1 tab 1 hour later if still in pain; Max 3 tabs per 24 hours. colchicine 2021-0 Yes [id number] Take 2 [facility] 0.6 mg 3-14 tabs po x ity of tablet 00:00: 1 dose PRN gout Medical attack, Branch may take 1 tab 1 hour later if still in pain; Max 3 tabs per 24 hours. colchicine 2021-0 Yes [id number] Take 2 [facility] 0.6 mg 3-14 tabs po x ity of tablet 00:00: 1 dose PRN gout Medical attack, Branch may take 1 tab 1 hour later if still in pain; Max 3 tabs per 24 hours. colchicine 2021-0 Yes [id number] Take 2 [facility] 0.6 mg 3-14 tabs po x ity of tablet 00:00: 1 dose PRN gout Medical attack, Branch may take 1 tab 1 hour later if still in pain; Max 3 tabs per 24 hours. colchicine 2021-0 Yes [id number] Take 2 [facility] 0.6 mg 3-14 tabs po x ity of tablet 00:00: 1 dose PRN gout Medical attack, Branch may take 1 tab 1 hour later if still in pain; Max 3 tabs per 24 hours. colchicine 2021-0 Yes [id number] Take 2 [facility] 0.6 mg 3-14 tabs po x ity of tablet 00:00: 1 dose PRN gout Medical attack, Branch may take 1 tab 1 hour later if still in pain; Max 3 tabs per 24 hours. colchicine 2021-0 Yes [id number] Take 2 [facility] 0.6 mg 3-14 tabs po x ity of tablet 00:00: 1 dose PRN [place] 00 gout Medical attack, Branch may take 1 tab 1 hour later if still in pain; Max 3 tabs per 24 hours. colchicine Yes [id number] Take 2 [facility] 0.6 mg 3-14 tabs po x ity of tablet 00:00: 1 dose PRN [place] 00 gout Medical attack, Branch may take 1 tab 1 hour later if still in pain; Max 3 tabs per 24 hours. naproxen 2022- No [id number] 500mg Take 1 [facility] 500 mg 3-14 -07 tablet by it[facility] of tablet 00:00: 00:00 mouth 2 [place] 00 :00 (two) Medical times Branch daily with meals. naproxen 2022- No [id number] 500mg Take 1 [facility] 500 mg 3-14 -07 tablet by ity of tablet 00:00: 00:00 mouth 2 [place] 00 :00 (two) Medical times Branch daily with meals. allopurinoL 2020-05 Yes [id number] 100mg Take 1 [facility] 100 mg 2-09 tablet by it[facility] of tablet 00:00: mouth [place] 00 daily. Medical Branch allopurinoL 2020-05 Yes [id number] 100mg Take 1 [facility] 100 mg 2-09 tablet by ity of tablet 00:00: mouth [place] 00 daily. [facility] allopurinoL 2020-05 Yes [id number] 100mg Take 1 [facility] 100 mg 2-09 tablet by ity of tablet 00:00: mouth [place] 00 daily. [facility] allopurinoL 2020-05 Yes [id number] 100mg Take 1 [facility] 100 mg 2-09 tablet by ity of tablet 00:00: mouth [place] 00 daily. [facility] allopurinoL 2020-05 Yes [id number] 100mg Take 1 [facility] 100 mg 2-09 tablet by ity of tablet 00:00: mouth [place] 00 daily. [facility] allopurinoL 2020-05 Yes [id number] 100mg Take 1 [facility] 100 mg 2-09 tablet by ity of tablet 00:00: mouth [place] 00 daily. [facility] allopurinoL 2020-05 Yes [id number] 100mg Take 1 [facility] 100 mg 2-09 tablet by ity of tablet 00:00: mouth [place] 00 daily. [facility] allopurinoL 2020-05 Yes [id number] 100mg Take 1 [facility] 100 mg 2-09 tablet by ity of tablet 00:00: mouth [place] 00 daily. [facility] allopurinoL 2020-05 Yes [id number] 100mg Take 1 [facility] 100 mg 2-09 tablet by ity of tablet 00:00: mouth [place] 00 daily. [facility] allopurinoL 2020-05 Yes [id number] 100mg Take 1 [facility] 100 mg 2-09 tablet by ity of tablet 00:00: mouth [place] 00 daily. [facility] allopurinoL 2020-05 Yes [id number] 100mg Take 1 [facility] 100 mg 2-09 tablet by ity of tablet 00:00: mouth [place] 00 daily. [facility] allopurinoL 2020-05 Yes [id number] 100mg Take 1 [facility] 100 mg 2-09 tablet by ity of tablet 00:00: mouth [place] 00 daily. [facility] allopurinoL 2020-05 Yes [id number] 100mg Take 1 [facility] 100 mg 2-09 tablet by ity of tablet 00:00: mouth [place] 00 daily. [facility] allopurinoL 2020-05 Yes [id number] 100mg Take 1 [facility] 100 mg 2-09 tablet by ity of tablet 00:00: mouth [place] 00 daily. [facility] allopurinoL 2020-05 Yes [id number] 100mg Take 1 [facility] 100 mg 2-09 tablet by ity of tablet 00:00: mouth [place] 00 daily. [facility] allopurinoL 2020-05 Yes [id number] 100mg Take 1 [facility] 100 mg 2-09 tablet by ity of tablet 00:00: mouth [place] 00 daily. [facility] allopurinoL 2020-05 Yes [id number] 100mg Take 1 [facility] 100 mg 2-09 tablet by ity of tablet 00:00: mouth [place] 00 daily. [facility] allopurinoL 2020-05 Yes [id number] 100mg Take 1 [facility] 100 mg 2-09 tablet by ity of tablet 00:00: mouth [place] 00 daily. [facility] allopurinoL 2020-05 Yes [id number] 100mg Take 1 [facility] 100 mg 2-09 tablet by ity of tablet 00:00: mouth [place] 00 daily. [facility] allopurinoL 2020-05 Yes [id number] 100mg Take 1 [facility] 100 mg 2-09 tablet by ity of tablet 00:00: mouth [place] 00 daily. Medical Branch allopurinoL 2020-05 Yes [id number] 100mg Take 1 [facility] 100 mg 2-09 tablet by ity of tablet 00:00: mouth [place] 00 daily. [facility] allopurinoL 2020-05 Yes [id number] 100mg Take 1 [facility] 100 mg 2-09 tablet by ity of tablet 00:00: mouth [place] 00 daily. [facility] allopurinoL 2020-05 Yes [id number] 100mg Take 1 [facility] 100 mg 2-09 tablet by ity of tablet 00:00: mouth [place] 00 daily. [facility] allopurinoL 2020-05 Yes [id number] 100mg Take 1 [facility] 100 mg 2-09 tablet by ity of tablet 00:00: mouth [place] 00 daily. [facility] allopurinoL 2020-05 Yes [id number] 100mg Take 1 [facility] 100 mg 2-09 tablet by ity of tablet 00:00: mouth [place] 00 daily. [facility] allopurinoL 2020-05 Yes [id number] 100mg Take 1 [facility] 100 mg 2-09 tablet by ity of tablet 00:00: mouth [place] 00 daily. [facility] allopurinoL 2020-05 Yes [id number] 100mg Take 1 [facility] 100 mg 2-09 tablet by ity of tablet 00:00: mouth [place] 00 daily. [facility] allopurinoL 2020-05 Yes [id number] 100mg Take 1 [facility] 100 mg 2-09 tablet by ity of tablet 00:00: mouth [place] 00 daily. [facility] allopurinoL 2020-05 Yes [id number] 100mg Take 1 [facility] 100 mg 2-09 tablet by ity of tablet 00:00: mouth [place] 00 daily. [facility] allopurinoL 2020-05 Yes [id number] 100mg Take 1 [facility] 100 mg 2-09 tablet by ity of tablet 00:00: mouth [place] 00 daily. [facility] allopurinoL 2020-05 Yes [id number] 100mg Take 1 [facility] 100 mg 2-09 tablet by ity of tablet 00:00: mouth [place] 00 daily. [facility] allopurinoL 2020-05 Yes [id number] 100mg Take 1 [facility] 100 mg 2-09 tablet by ity of tablet 00:00: mouth [place] 00 daily. [facility] allopurinoL 2020-05 Yes [id number] 100mg Take 1 [facility] 100 mg 2-09 tablet by ity of tablet 00:00: mouth [place] 00 daily. [facility] allopurinoL 2020-05 Yes [id number] 100mg Take 1 [facility] 100 mg 2-09 tablet by ity of tablet 00:00: mouth [place] 00 daily. [facility] allopurinoL 2020-05 Yes [id number] 100mg Take 1 [facility] 100 mg 2-09 tablet by ity of tablet 00:00: mouth [place] 00 daily. [facility] allopurinoL 2020-05 Yes [id number] 100mg Take 1 [facility] 100 mg 2-09 tablet by ity of tablet 00:00: mouth [place] 00 daily. [facility] allopurinoL 2020-05 Yes [id number] 100mg Take 1 [facility] 100 mg 2-09 tablet by ity of tablet 00:00: mouth [place] 00 daily. [facility] allopurinoL 2020-05 Yes [id number] 100mg Take 1 [facility] 100 mg 2-09 tablet by ity of tablet 00:00: mouth [place] 00 daily. [facility] allopurinoL 2020-05 Yes [id number] 100mg Take 1 [facility] 100 mg 2-09 tablet by ity of tablet 00:00: mouth [place] 00 daily. [facility] allopurinoL 2020-05 Yes [id number] 100mg Take 1 [facility] 100 mg 2-09 tablet by ity of tablet 00:00: mouth [place] 00 daily. [facility] allopurinoL 2020-05 Yes [id number] 100mg Take 1 [facility] 100 mg 2-09 tablet by [facility] of tablet 00:00: mouth [place] 00 daily. [facility] allopurinoL 2020-05- No [id number] 100mg Take 1 [facility] 100 mg 2-09 03-07 tablet by ity of tablet 00:00: 00:00 mouth [place] 00 :00 daily. [facility] allopurinoL 2020-05- No [id number] 100mg Take 1 [facility] 100 mg 2-09 03-07 tablet by ity of tablet 00:00: 00:00 mouth [place] 00 :00 daily. [facility] ondansetron 2020-05 Yes [id number] 4mg Take 1 [facility] 4 mg 1-12 tablet by ity of disintegrat 00:00: mouth [place] ing tablet 00 every 8 Medica l (eight) Branch hours as needed for Nausea and Vomiting (N/V). ondansetron 2020-05 Yes [id number] 4mg Take 1 [facility] 4 mg 1-12 tablet by ity of disintegrat 00:00: mouth [place] ing tablet 00 every 8 Med[facility] l (eight) Branch hours as needed for Nausea and Vomiting (N/V). ondansetron 2020-05 Yes [id number] 4mg Take 1 [facility] 4 mg 1-12 tablet by ity of disintegrat 00:00: mouth [place] ing tablet 00 every 8 Medica l (eight) Branch hours as needed for Nausea and Vomiting (N/V). ondansetron 2020-05 Yes [id number] 4mg Take 1 [facility] 4 mg 1-12 tablet by ity of disintegrat 00:00: mouth [place] ing tablet 00 every 8 Medica l (eight) Branch hours as needed for Nausea and Vomiting (N/V). ondansetron 2020-05 Yes [id number] 4mg Take 1 [facility] 4 mg 1-12 tablet by ity of disintegrat 00:00: mouth [place] ing tablet 00 every 8 Med[facility] l (eight) Branch hours as needed for Nausea and Vomiting (N/V). ondansetron 2020-05 Yes [id number] 4mg Take 1 [facility] 4 mg 1-12 tablet by ity of disintegrat 00:00: mouth [place] ing tablet 00 every 8 Medica l (eight) Branch hours as needed for Nausea and Vomiting (N/V). ondansetron 2020-05 Yes [id number] 4mg Take 1 [facility] 4 mg 1-12 tablet by ity of disintegrat 00:00: mouth [place] ing tablet 00 every 8 Medica l (eight) Branch hours as needed for Nausea and Vomiting (N/V). ondansetron 2020-05 Yes [id number] 4mg Take 1 [facility] 4 mg 1-12 tablet by ity of disintegrat 00:00: mouth [place] ing tablet 00 every 8 Med[facility] (eight) Branch hours as needed for Nausea and Vomiting (N/V). ondansetron 2020-05 Yes [id number] 4mg Take 1 [facility] 4 mg 1-12 tablet by ity of disintegrat 00:00: mouth [place] ing tablet 00 every 8 [facility] l (eight) Branch hours as needed for Nausea and Vomiting (N/V). ondansetron 2020-05 Yes [id number] 4mg Take 1 [facility] 4 mg 1-12 tablet by ity of disintegrat 00:00: mouth [place] ing tablet 00 every 8 Medica l (eight) Branch hours as needed for Nausea and Vomiting (N/V). ondansetron 2020-05 Yes [id number] 4mg Take 1 [facility] 4 mg 1-12 tablet by ity of disintegrat 00:00: mouth [place] ing tablet 00 every 8 Medica l (eight) Branch hours as needed for Nausea and Vomiting (N/V). ondansetron 2020-05 Yes [id number] 4mg Take 1 [facility] 4 mg 1-12 tablet by ity of disintegrat 00:00: mouth [place] ing tablet 00 every 8 Medica l (eight) Branch hours as needed for Nausea and Vomiting (N/V). ondansetron 2020-05 Yes [id number] 4mg Take 1 [facility] 4 mg 1-12 tablet by ity of disintegrat 00:00: mouth [place] ing tablet 00 every 8 Medica l (eight) Branch hours as needed for Nausea and Vomiting (N/V). ondansetron 2020-05 Yes [id number] 4mg Take 1 [facility] 4 mg 1-12 tablet by ity of disintegrat 00:00: mouth [place] ing tablet 00 every 8 Medica l (eight) Branch hours as needed for Nausea and Vomiting (N/V). ondansetron 2020-05 Yes [id number] 4mg Take 1 [facility] 4 mg 1-12 tablet by ity of disintegrat 00:00: mouth [place] ing tablet 00 every 8 Medica l (eight) Branch hours as needed for Nausea and Vomiting (N/V). ondansetron 2020-05 Yes [id number] 4mg Take 1 [facility] 4 mg 1-12 tablet by ity of disintegrat 00:00: mouth [place] ing tablet 00 every 8 Medica l (eight) Branch hours as needed for Nausea and Vomiting (N/V). ondansetron 2020-05 Yes [id number] 4mg Take 1 [facility] 4 mg 1-12 tablet by ity of disintegrat 00:00: mouth [place] ing tablet 00 every 8 Medica l (eight) Branch hours as needed for Nausea and Vomiting (N/V). ondansetron 2020-05 Yes [id number] 4mg Take 1 [facility] 4 mg 1-12 tablet by ity of disintegrat 00:00: mouth [place] ing tablet 00 every 8 Medica l (eight) Branch hours as needed for Nausea and Vomiting (N/V). ondansetron 2020-05 Yes [id number] 4mg Take 1 [facility] 4 mg 1-12 tablet by ity of disintegrat 00:00: mouth [place] ing tablet 00 every 8 Medica l (eight) Branch hours as needed for Nausea and Vomiting (N/V). ondansetron 2020-05 Yes [id number] 4mg Take 1 [facility] 4 mg 1-12 tablet by ity of disintegrat 00:00: mouth [place] ing tablet 00 every 8 Medica l (eight) Branch hours as needed for Nausea and Vomiting (N/V). ondansetron 2020-05 Yes [id number] 4mg Take 1 [facility] 4 mg 1-12 tablet by ity of disintegrat 00:00: mouth [place] ing tablet 00 every 8 Medica l (eight) Branch hours as needed for Nausea and Vomiting (N/V). ondansetron 2020-05 Yes [id number] 4mg Take 1 [facility] 4 mg 1-12 tablet by ity of disintegrat 00:00: mouth [place] ing tablet 00 every 8 Medica l (eight) Branch hours as needed for Nausea and Vomiting (N/V). ondansetron 2020-05 Yes [id number] 4mg Take 1 [facility] 4 mg 1-12 tablet by ity of disintegrat 00:00: mouth [place] ing tablet 00 every 8 Medica l (eight) Branch hours as needed for Nausea and Vomiting (N/V). ondansetron 2020-05 Yes [id number] 4mg Take 1 [facility] 4 mg 1-12 tablet by ity of disintegrat 00:00: mouth [place] ing tablet 00 every 8 Medica l (eight) Branch hours as needed for Nausea and Vomiting (N/V). ondansetron 2020-05 Yes [id number] 4mg Take 1 [facility] 4 mg 1-12 tablet by ity of disintegrat 00:00: mouth [place] ing tablet 00 every 8 Medica l (eight) Branch hours as needed for Nausea and Vomiting (N/V). ondansetron 2020-05 Yes [id number] 4mg Take 1 [facility] 4 mg 1-12 tablet by ity of disintegrat 00:00: mouth [place] ing tablet 00 every 8 Medica l (eight) Branch hours as needed for Nausea and Vomiting (N/V). ondansetron 2020-05 Yes [id number] 4mg Take 1 [facility] 4 mg 1-12 tablet by ity of disintegrat 00:00: mouth [place] ing tablet 00 every 8 Medica l (eight) Branch hours as needed for Nausea and Vomiting (N/V). ondansetron 2020-05 Yes [id number] 4mg Take 1 [facility] 4 mg 1-12 tablet by ity of disintegrat 00:00: mouth [place] ing tablet 00 every 8 Medica l (eight) Branch hours as needed for Nausea and Vomiting (N/V). ondansetron 2020-05 Yes [id number] 4mg Take 1 [facility] 4 mg 1-12 tablet by ity of disintegrat 00:00: mouth [place] ing tablet 00 every 8 Medica l (eight) Branch hours as needed for Nausea and Vomiting (N/V). ondansetron 2020-05 Yes [id number] 4mg Take 1 [facility] 4 mg 1-12 tablet by ity of disintegrat 00:00: mouth [place] ing tablet 00 every 8 Medica l (eight) Branch hours as needed for Nausea and Vomiting (N/V). ondansetron 2020-05 Yes [id number] 4mg Take 1 [facility] 4 mg 1-12 tablet by ity of disintegrat 00:00: mouth [place] ing tablet 00 every 8 Medica l (eight) Branch hours as needed for Nausea and Vomiting (N/V). ondansetron 2020-05 Yes [id number] 4mg Take 1 [facility] 4 mg 1-12 tablet by ity of disintegrat 00:00: mouth [place] ing tablet 00 every 8 Medica l (eight) Branch hours as needed for Nausea and Vomiting (N/V). ondansetron 2020-05 Yes [id number] 4mg Take 1 [facility] 4 mg 1-12 tablet by ity of disintegrat 00:00: mouth [place] ing tablet 00 every 8 Medica l (eight) Branch hours as needed for Nausea and Vomiting (N/V). ondansetron 2020-05 Yes [id number] 4mg Take 1 [facility] 4 mg 1-12 tablet by ity of disintegrat 00:00: mouth [place] ing tablet 00 every 8 Medica l (eight) Branch hours as needed for Nausea and Vomiting (N/V). ondansetron 2020-05 Yes [id number] 4mg Take 1 [facility] 4 mg 1-12 tablet by ity of disintegrat 00:00: mouth [place] ing tablet 00 every 8 Medica l (eight) Branch hours as needed for Nausea and Vomiting (N/V). ondansetron 2020-05 Yes [id number] 4mg Take 1 [facility] 4 mg 1-12 tablet by ity of disintegrat 00:00: mouth [place] ing tablet 00 every 8 Medica l (eight) Branch hours as needed for Nausea and Vomiting (N/V). ondansetron 2020-05 Yes [id number] 4mg Take 1 [facility] 4 mg 1-12 tablet by ity of disintegrat 00:00: mouth [place] ing tablet 00 every 8 Medica l (eight) Branch hours as needed for Nausea and Vomiting (N/V). ondansetron 2020-05 Yes [id number] 4mg Take 1 [facility] 4 mg 1-12 tablet by ity of disintegrat 00:00: mouth [place] ing tablet 00 every 8 Medica l (eight) Branch hours as needed for Nausea and Vomiting (N/V). ondansetron 2020-05 Yes [id number] 4mg Take 1 [facility] 4 mg 1-12 tablet by ity of disintegrat 00:00: mouth [place] ing tablet 00 every 8 Medica l (eight) Branch hours as needed for Nausea and Vomiting (N/V). ondansetron 2020-05 Yes [id number] 4mg Take 1 [facility] 4 mg 1-12 tablet by ity of disintegrat 00:00: mouth [place] ing tablet 00 every 8 Medica l (eight) Branch hours as needed for Nausea and Vomiting (N/V). ondansetron 2020-05 Yes [id number] 4mg Take 1 [facility] 4 mg 1-12 tablet by ity of disintegrat 00:00: mouth [place] ing tablet 00 every 8 Medica l (eight) Branch hours as needed for Nausea and Vomiting (N/V). ondansetron 2020-05 Yes [id number] 4mg Take 1 [facility] 4 mg 1-12 tablet by ity of disintegrat 00:00: mouth [place] ing tablet 00 every 8 Medica l (eight) Branch hours as needed for Nausea and Vomiting (N/V). ondansetron 2020-05 Yes [id number] 4mg Take 1 [facility] 4 mg 1-12 tablet by ity of disintegrat 00:00: mouth [place] ing tablet 00 every 8 Medica l (eight) Branch hours as needed for Nausea and Vomiting (N/V). ondansetron 2020-05 Yes [id number] 4mg Take 1 [facility] 4 mg 1-12 tablet by ity of disintegrat 00:00: mouth [place] ing tablet 00 every 8 Medica l (eight) Branch hours as needed for Nausea and Vomiting (N/V). ondansetron 2020-05 Yes [id number] 4mg Take 1 [facility] 4 mg 1-12 tablet by ity of disintegrat 00:00: mouth [place] ing tablet 00 every 8 Medica l (eight) Branch hours as needed for Nausea and Vomiting (N/V). ondansetron 2020-05 Yes [id number] 4mg Take 1 [facility] 4 mg 1-12 tablet by ity of disintegrat 00:00: mouth [place] ing tablet 00 every 8 Medica l (eight) Branch hours as needed for Nausea and Vomiting (N/V). ondansetron 2020-05 Yes [id number] 4mg Take 1 [facility] 4 mg 1-12 tablet by ity of disintegrat 00:00: mouth [place] ing tablet 00 every 8 Medica l (eight) Branch hours as needed for Nausea and Vomiting (N/V). ondansetron 2020-05 Yes [id number] 4mg Take 1 [facility] 4 mg 1-12 tablet by ity of disintegrat 00:00: mouth [place] ing tablet 00 every 8 Medica l (eight) Branch hours as needed for Nausea and Vomiting (N/V). ondansetron 2020-05 Yes [id number] 4mg Take 1 [facility] 4 mg 1-12 tablet by ity of disintegrat 00:00: mouth [place] ing tablet 00 every 8 Medica l (eight) Branch hours as needed for Nausea and Vomiting (N/V). ondansetron 2020-05 Yes [id number] 4mg Take 1 [facility] 4 mg 1-12 tablet by ity of disintegrat 00:00: mouth [place] ing tablet 00 every 8 Medica l (eight) Branch hours as needed for Nausea and Vomiting (N/V). ondansetron 2020-05 Yes [id number] 4mg Take 1 [facility] 4 mg 1-12 tablet by ity of disintegrat 00:00: mouth [place] ing tablet 00 every 8 Medica l (eight) Branch hours as needed for Nausea and Vomiting (N/V). ondansetron 2020-05 Yes [id number] 4mg Take 1 [facility] 4 mg 1-12 tablet by ity of disintegrat 00:00: mouth [place] ing tablet 00 every 8 Medica l (eight) Branch hours as needed for Nausea and Vomiting (N/V). ondansetron 2020-05 Yes [id number] 4mg Take 1 [facility] 4 mg 1-12 tablet by ity of disintegrat 00:00: mouth [place] ing tablet 00 every 8 Medica l (eight) Branch hours as needed for Nausea and Vomiting (N/V). ondansetron 2020-05 Yes [id number] 4mg Take 1 [facility] 4 mg 1-12 tablet by ity of disintegrat 00:00: mouth [place] ing tablet 00 every 8 Medica l (eight) Branch hours as needed for Nausea and Vomiting (N/V). ondansetron 2020-05 Yes [id number] 4mg Take 1 [facility] 4 mg 1-12 tablet by ity of disintegrat 00:00: mouth [place] ing tablet 00 every 8 Medica l (eight) Branch hours as needed for Nausea and Vomiting (N/V). ondansetron 2020-05 Yes [id number] 4mg Take 1 [facility] 4 mg 1-12 tablet by ity of disintegrat 00:00: mouth [place] ing tablet 00 every 8 Medica l (eight) Branch hours as needed for Nausea and Vomiting (N/V). ondansetron 2020-05 Yes [id number] 4mg Take 1 [facility] 4 mg 1-12 tablet by ity of disintegrat 00:00: mouth [place] ing tablet 00 every 8 Medica l (eight) Branch hours as needed for Nausea and Vomiting (N/V). ondansetron 2020-05 Yes [id number] 4mg Take 1 [facility] 4 mg 1-12 tablet by ity of disintegrat 00:00: mouth [place] ing tablet 00 every 8 Medica l (eight) Branch hours as needed for Nausea and Vomiting (N/V). ondansetron 2020-05 Yes [id number] 4mg Take 1 [facility] 4 mg 1-12 tablet by ity of disintegrat 00:00: mouth [place] ing tablet 00 every 8 Medica l (eight) Branch hours as needed for Nausea and Vomiting (N/V). ondansetron 2020-05 Yes [id number] 4mg Take 1 [facility] 4 mg 1-12 tablet by ity of disintegrat 00:00: mouth [place] ing tablet 00 every 8 Medica l (eight) Branch hours as needed for Nausea and Vomiting (N/V). ondansetron 2020-05 Yes [id number] 4mg Take 1 [facility] 4 mg 1-12 tablet by ity of disintegrat 00:00: mouth [place] ing tablet 00 every 8 Medica l (eight) Branch hours as needed for Nausea and Vomiting (N/V). ondansetron 2020-05 Yes [id number] 4mg Take 1 [facility] 4 mg 1-12 tablet by ity of disintegrat 00:00: mouth [place] ing tablet 00 every 8 Medica l (eight) Branch hours as needed for Nausea and Vomiting (N/V). ondansetron 2020-05 Yes [id number] 4mg Take 1 [facility] 4 mg 1-12 tablet by ity of disintegrat 00:00: mouth [place] ing tablet 00 every 8 Medica l (eight) Branch hours as needed for Nausea and Vomiting (N/V). ondansetron 2020-05 Yes [id number] 4mg Take 1 [facility] 4 mg 1-12 tablet by ity of disintegrat 00:00: mouth [place] ing tablet 00 every 8 Medica l (eight) Branch hours as needed for Nausea and Vomiting (N/V). ondansetron 2020-05 Yes [id number] 4mg Take 1 [facility] 4 mg 1-12 tablet by ity of disintegrat 00:00: mouth [place] ing tablet 00 every 8 Medica l (eight) Branch hours as needed for Nausea and Vomiting (N/V). ondansetron 2020-05 Yes [id number] 4mg Take 1 [facility] 4 mg 1-12 tablet by ity of disintegrat 00:00: mouth [place] ing tablet 00 every 8 Med[facility] l (eight) Branch hours as needed for Nausea and Vomiting (N/V). ondansetron 2020-05 Yes [id number] 4mg Take 1 [facility] 4 mg 1-12 tablet by ity of disintegrat 00:00: mouth [place] ing tablet 00 every 8 Medica l (eight) Branch hours as needed for Nausea and Vomiting (N/V). ondansetron 2020-05 Yes [id number] 4mg Take 1 [facility] 4 mg 1-12 tablet by ity of disintegrat 00:00: mouth [place] ing tablet 00 every 8 Medica l (eight) Branch hours as needed for Nausea and Vomiting (N/V). ondansetron 2020-05 Yes [id number] 4mg Take 1 [facility] 4 mg 1-12 tablet by ity of disintegrat 00:00: mouth [place] ing tablet 00 every 8 Medica l (eight) Branch hours as needed for Nausea and Vomiting (N/V). mupirocin 2 2020-05 Yes [id number] Apply to [facility] % ointment 0-24 9104 area(s) 3 ity of 00:00: (three) [place] 00 times Medical daily. Branch mupirocin 2 2020-05 Yes [id number] Apply to [facility] % ointment 0-24 9104 area(s) 3 ity of 00:00: (three) [place] 00 times Medical daily. Branch mupirocin 2 2020-05 Yes [id number] Apply to [facility] % ointment 0-24 9104 area(s) 3 ity of 00:00: (three) [place] 00 times Medical daily. Branch mupirocin 2 2020-05 Yes [id number] Apply to [facility] % ointment 0-24 9104 area(s) 3 ity of 00:00: (three) [place] 00 times Medical daily. Branch mupirocin 2 2020-05 Yes [id number] Apply to [facility] % ointment 0-24 9104 area(s) 3 ity of 00:00: (three) [place] 00 times Medical daily. Branch mupirocin 2 2020-05 Yes [id number] Apply to [facility] % ointment 0-24 9104 area(s) 3 ity of 00:00: (three) [place] 00 times Medical daily. Branch mupirocin 2 2020-05 Yes [id number] Apply to [facility] % ointment 0-24 9104 area(s) 3 ity of 00:00: (three) [place] 00 times Medical daily. Branch mupirocin 2 2020-05 Yes [id number] Apply to [facility] % ointment 0-24 9104 area(s) 3 ity of 00:00: (three) [place] 00 times Medical daily. Branch mupirocin 2 2020-05 Yes [id number] Apply to [facility] % ointment 0-24 9104 area(s) 3 ity of 00:00: (three) [place] 00 times Medical daily. Branch mupirocin 2 2020- Yes [id number] Apply to [facility] % ointment 0-24 9104 area(s) 3 ity of 00:00: (three) [place] times Medical daily. Branch mupirocin 2 2020- Yes [id number] Apply to [facility] % ointment 0-24 9104 area(s) 3 ity of 00:00: (three) [place] 00 times Medical daily. Branch mupirocin 2 2020- Yes [id number] Apply to [facility] % ointment 0-24 9104 area(s) 3 ity of 00:00: (three) [place] 00 times Medical daily. Branch mupirocin 2 2020- Yes [id number] Apply to [facility] % ointment 0-24 9104 area(s) 3 ity of 00:00: (three) [place] 00 times Medical daily. Branch mupirocin 2 2020-05 Yes [id number] Apply to [facility] % ointment 0-24 9104 area(s) 3 ity of 00:00: (three) [place] times Medical daily. Branch mupirocin 2 2020- Yes [id number] Apply to [facility] % ointment 0-24 9104 area(s) 3 ity of 00:00: (three) [place] times Medical daily. Branch mupirocin 2 2020- Yes [id number] Apply to [facility] % ointment 0-24 9104 area(s) 3 ity of 00:00: (three) [place] 00 times Medical daily. Branch mupirocin 2 2020- Yes [id number] Apply to [facility] % ointment 0-24 9104 area(s) 3 ity of 00:00: (three) [place] 00 times Medical daily. Branch mupirocin 2 2020- Yes [id number] Apply to [facility] % ointment 0-24 9104 area(s) 3 ity of 00:00: (three) [place] 00 times Medical daily. Branch mupirocin 2 2020- Yes [id number] Apply to [facility] % ointment 0-24 9104 area(s) 3 ity of 00:00: (three) [place] 00 times Medical daily. Branch mupirocin 2 2020-05 Yes [id number] Apply to [facility] % ointment 0-24 9104 area(s) 3 ity of 00:00: (three) [place] 00 times Medical daily. Branch mupirocin 2 2020-05 Yes [id number] Apply to [facility] % ointment 0-24 9104 area(s) 3 ity of 00:00: (three) [place] 00 times Medical daily. Branch mupirocin 2 2020-05 Yes [id number] Apply to [facility] % ointment 0-24 9104 area(s) 3 ity of 00:00: (three) [place] 00 times Medical daily. Branch mupirocin 2 2020-05 Yes [id number] Apply to [facility] % ointment 0-24 9104 area(s) 3 ity of 00:00: (three) [place] 00 times Medical daily. Branch mupirocin 2 2020-05 Yes [id number] Apply to [facility] % ointment 0-24 9104 area(s) 3 ity of 00:00: (three) [place] 00 times Medical daily. Branch mupirocin 2 2020-05 Yes [id number] Apply to [facility] % ointment 0-24 9104 area(s) 3 ity of 00:00: (three) [place] 00 times Medical daily. Branch mupirocin 2 2020-05 Yes [id number] Apply to [facility] % ointment 0-24 9104 area(s) 3 ity of 00:00: (three) [place] 00 times Medical daily. Branch mupirocin 2 2020-05 Yes [id number] Apply to [facility] % ointment 0-24 9104 area(s) 3 ity of 00:00: (three) [place] 00 times Medical daily. Branch mupirocin 2 2020-05 Yes [id number] Apply to [facility] % ointment 0-24 9104 area(s) 3 ity of 00:00: (three) [place] 00 times Medical daily. Branch mupirocin 2 2020-05 Yes [id number] Apply to [facility] % ointment 0-24 9104 area(s) 3 ity of 00:00: (three) [place] 00 times Medical daily. Branch mupirocin 2 2020-05 Yes [id number] Apply to [facility] % ointment 0-24 9104 area(s) 3 ity of 00:00: (three) [place] 00 times Medical daily. Branch mupirocin 2 2020-05 Yes [id number] Apply to [facility] % ointment 0-24 9104 area(s) 3 ity of 00:00: (three) [place] 00 times Medical daily. Branch mupirocin 2 2020-05 Yes [id number] Apply to [facility] % ointment 0-24 9104 area(s) 3 ity of 00:00: (three) [place] 00 times Medical daily. Branch mupirocin 2 2020-05 Yes [id number] Apply to [facility] % ointment 0-24 9104 area(s) 3 ity of 00:00: (three) [place] 00 times Medical daily. Branch mupirocin 2 2020-05 Yes [id number] Apply to [facility] % ointment 0-24 9104 area(s) 3 ity of 00:00: (three) [place] 00 times Medical daily. Branch mupirocin 2 2020-05 Yes [id number] Apply to [facility] % ointment 0-24 9104 area(s) 3 ity of 00:00: (three) [place] 00 times Medical daily. Branch mupirocin 2 2020-05 Yes [id number] Apply to [facility] % ointment 0-24 9104 area(s) 3 ity of 00:00: (three) [place] 00 times Medical daily. Branch mupirocin 2 2020-05 Yes [id number] Apply to [facility] % ointment 0-24 9104 area(s) 3 ity of 00:00: (three) [place] 00 times Medical daily. Branch mupirocin 2 2020-05 Yes [id number] Apply to [facility] % ointment 0-24 9104 area(s) 3 ity of 00:00: (three) [place] 00 times Medical daily. Branch mupirocin 2 2020-05 Yes [id number] Apply to [facility] % ointment 0-24 9104 area(s) 3 ity of 00:00: (three) [place] 00 times Medical daily. Branch mupirocin 2 2020-05 Yes [id number] Apply to [facility] % ointment 0-24 9104 area(s) 3 ity of 00:00: (three) [place] 00 times Medical daily. Branch mupirocin 2 2020-05 Yes [id number] Apply to [facility] % ointment 0-24 9104 area(s) 3 ity of 00:00: (three) [place] 00 times Medical daily. Branch mupirocin 2 2020-05 Yes [id number] Apply to [facility] % ointment 0-24 9104 area(s) 3 ity of 00:00: (three) [place] 00 times Medical daily. Branch mupirocin 2 2020-05 Yes [id number] Apply to [facility] % ointment 0-24 9104 area(s) 3 ity of 00:00: (three) [place] 00 times Medical daily. Branch mupirocin 2 2020-05 Yes [id number] Apply to [facility] % ointment 0-24 9104 area(s) 3 ity of 00:00: (three) [place] 00 times Medical daily. Branch mupirocin 2 2020-05 Yes [id number] Apply to [facility] % ointment 0-24 9104 area(s) 3 ity of 00:00: (three) [place] 00 times Medical daily. Branch mupirocin 2 2020-05 Yes [id number] Apply to [facility] % ointment 0-24 9104 area(s) 3 ity of 00:00: (three) [place] 00 times Medical daily. Branch mupirocin 2 2020-05 Yes [id number] Apply to [facility] % ointment 0-24 9104 area(s) 3 ity of 00:00: (three) [place] 00 times Medical daily. Branch mupirocin 2 2020-05 Yes [id number] Apply to [facility] % ointment 0-24 9104 area(s) 3 ity of 00:00: (three) [place] 00 times Medical daily. Branch mupirocin 2 2020-05 Yes [id number] Apply to [facility] % ointment 0-24 9104 area(s) 3 ity of 00:00: (three) [place] 00 times Medical daily. Branch mupirocin 2 2020-05 Yes [id number] Apply to [facility] % ointment 0-24 9104 area(s) 3 ity of 00:00: (three) [place] 00 times Medical daily. Branch mupirocin 2 2020- Yes [id number] Apply to [facility] % ointment 0-24 9104 area(s) 3 ity of 00:00: (three) [place] 00 times Medical daily. Branch mupirocin 2 2020- Yes [id number] Apply to [facility] % ointment 0-24 9104 area(s) 3 ity of 00:00: (three) [place] 00 times Medical daily. Branch mupirocin 2 2020- Yes [id number] Apply to [facility] % ointment 0-24 9104 area(s) 3 ity of 00:00: (three) [place] 00 times Medical daily. Branch mupirocin 2 2020- Yes [id number] Apply to [facility] % ointment 0-24 9104 area(s) 3 ity of 00:00: (three) [place] 00 times Medical daily. Branch mupirocin 2 2020- Yes [id number] Apply to [facility] % ointment 0-24 9104 area(s) 3 ity of 00:00: (three) [place] 00 times Medical daily. Branch mupirocin 2 2020- Yes [id number] Apply to [facility] % ointment 0-24 9104 area(s) 3 ity of 00:00: (three) [place] 00 times Medical daily. Branch mupirocin 2 2020- Yes [id number] Apply to [facility] % ointment 0-24 9104 area(s) 3 ity of 00:00: (three) [place] 00 times Medical daily. Branch mupirocin 2 2020-05 Yes [id number] Apply to [facility] % ointment 0-24 9104 area(s) 3 ity of 00:00: (three) [place] 00 times Medical daily. Branch mupirocin 2 2020- Yes [id number] Apply to [facility] % ointment 0-24 9104 area(s) 3 ity of 00:00: (three) [place] 00 times Medical daily. Branch mupirocin 2 2020- Yes [id number] Apply to [facility] % ointment 0-24 9104 area(s) 3 ity of 00:00: (three) [place] 00 times Medical daily. Branch mupirocin 2 2020- Yes [id number] Apply to [facility] % ointment 0-24 9104 area(s) 3 ity of 00:00: (three) [place] 00 times Medical daily. Branch mupirocin 2 2020- Yes [id number] Apply to [facility] % ointment 0-24 9104 area(s) 3 ity of 00:00: (three) [place] 00 times Medical daily. Branch mupirocin 2 2020- Yes [id number] Apply to [facility] % ointment 0-24 9104 area(s) 3 ity of 00:00: (three) [place] 00 times Medical daily. Branch mupirocin 2 2020- Yes [id number] Apply to [facility] % ointment 0-24 9104 area(s) 3 ity of 00:00: (three) [place] 00 times Medical daily. Branch mupirocin 2 2020- Yes [id number] Apply to [facility] % ointment 0-24 9104 area(s) 3 ity of 00:00: (three) [place] 00 times Medical daily. Branch mupirocin 2 2020-05 Yes [id number] Apply to [facility] % ointment 0-24 9104 area(s) 3 ity of 00:00: (three) [place] 00 times Medical daily. Branch mupirocin 2 2020-05 Yes [id number] Apply to Univers % ointment 0-24 9104 area(s) 3 ity of 00:00: (three) [place] 00 times Medical daily. Branch mupirocin 2 2020- Yes [id number] Apply to Univers % ointment 0-24 9104 area(s) 3 ity of 00:00: (three) [place] 00 times Medical daily. Branch mupirocin 2 2020-05 Yes [id number] Apply to Univers % ointment 0-24 9104 area(s) 3 ity of 00:00: (three) [place] 00 times Medical daily. Branch pantoprazol Yes 20mg Take 20 mg Univers e 20 mg EC 1-05 by mouth ity o f tablet 09:31: daily. [address] Branch pantoprazol 2020-0 Yes 20mg Take 20 mg Univers e 20 mg EC 1-05 by mouth ity o f tablet 09:31: daily. [address] pantoprazol 2020-0 Yes 20mg Take 20 mg Univers e 20 mg EC 1-05 by mouth ity o f tablet 09:31: daily. [address] pantoprazol 2020-0 Yes 20mg Take 20 mg Univers e 20 mg EC 1-05 by mouth ity o f tablet 09:31: daily. [address] pantoprazol 2020-0 Yes 20mg Take 20 mg Univers e 20 mg EC 1-05 by mouth ity o f tablet 09:31: daily. [address] pantoprazol 2020-0 Yes 20mg Take 20 mg Univers e 20 mg EC 1-05 by mouth ity o f tablet 09:31: daily. [address] pantoprazol 2020-0 Yes 20mg Take 20 mg Univers e 20 mg EC 1-05 by mouth ity o f tablet 09:31: daily. [address] pantoprazol 2020-0 Yes 20mg Take 20 mg Univers e 20 mg EC 1-05 by mouth ity o f tablet 09:31: daily. [address] pantoprazol 2020-0 Yes 20mg Take 20 mg Univers e 20 mg EC 1-05 by mouth ity o f tablet 09:31: daily. [address] pantoprazol 2020-0 Yes 20mg Take 20 mg Univers e 20 mg EC 1-05 by mouth ity o f tablet 09:31: daily. [address] hydrocortis Yes hydrocorti Methodi one 2.5 % 11-27 sone 2.5 % st cream 09:18: topical [facility] 28 cream l alclomethas Yes alclometas Methodi one 11-27 one 0.05 [...] 09:18: topical [facility] 28 cream l alclomethas 2019-0 Yes alclometas Methodi one 11-27 one 0.05 % st (ACLOVATE) 09:18: topical Hosp leon 0.05 % 28 cream l cream clobetasol 2019-0 Yes clobetasol M ethodi (TEMOVATE) 11-27 0.05 % st 0.05 % 09:18: topical Hospita ointment 28 ointment l hydrocortis 2019-0 Yes hydrocorti Methodi one 2.5 % 11-27 sone 2.5 % st cream 09:18: topical [facility]osp[facility] 28 cream l alclomethas 2019-0 Yes alclometas Methodi one 11-27 one 0.05 [...] 09:18: topical [facility]ospita 28 cream l alclomethas 2019-0 Yes alclometas Methodi one 11-27 one 0.05 [...] strip test code E11.9 strips blood sugar Yes Check Metho di diagnostic 6-[address] strips 00:00: once daily Hospi ta (ONETOUCH 00 before l ULTRA BLUE breakfast; TEST STRIP) ICD-10 strip test code E11.9 strips blood sugar Yes Check Metho di diagnostic 6-[address] strips 00:00: once daily Hospi ta (ONETOUCH 00 before l ULTRA BLUE breakfast; TEST STRIP) ICD-10 strip test code E11.9 strips blood sugar 2018-0 Yes Check Metho di diagnostic 6-21 glucose [...] mg tablet 00:00: Hospita 00 l amLODIPine 2019-0 Yes 5mg Take 5 mg Me thodi (NORVASC) 5 5-[address] mg tablet 00:00: Hospita 00 l amLODIPine 2019-0 Yes 5mg Take 5 mg [facility] (NORVASC) 5 5-[address] mg tablet 00:00: Hospita 00 l amLODIPine 2019-0 Yes 5mg Take 5 mg Me thodi (NORVASC) 5 5-[address] mg tablet 00:00: Hospita 00 l betamethaso 2018-0 Yes betamethas Methodi ne, 01-19 one, st augmented, 00:00: augmented Ho spita (DIPROLENE) 00 0.05 % l 0.05 % topical ointment ointment betamethaso 2018-0 Yes betamethas Methodi ne, 01-19 one, st augmented, 00:00: augmented [facility] sp[facility] (DIPROLENE) 00 0.05 % l 0.05 % topical ointment ointment betamethaso 2018-0 Yes betamethas Methodi ne, 01-19, st augmented, 00:00: augmented Ho spita (DIPROLENE) 00 0.05 % l 0.05 % topical ointment ointment betamethaso 2018-0 Yes betamethas Methodi ne, 01-19, st augmented, [...] APPLY 2 G M [facility] iamcinolone iamcinolone 05-31 LAZARO [facility] [id number] 00:00: daily ans UNIT/GM-% UNIT/GM-% 00 External [...] MG Oral MG Oral ans Tablet Tablet Vital Signs Vital Name Observation Time Observation Value Comments Source Body height 2023-01-21 13:42:00 163.6 cm [facility] Body weight 2023-01-21 13:42:00 101.606 [facility] BMI 2023-01-21 13:42:00 [facility]97 [facility] 2022-11-16 21:29:00 106 mm[Hg] [facility]ity of [facility] [place] [facility] Diastolic blood 2022-11-16 21:29:00 72 mm[Hg] Unive rsity of [facility] [place] [facility] Heart rate 2022-11-16 21:29:00 94 /min [facility] [place] [facility] Body temperature 2022-11-16 21:29:00 36.89 Jennifer Univ ersity of [facility] Respiratory rate 2022-11-16 21:29:00 18 /min Univ ers[facility] [place] [facility] Body height 2022-11-16 21:29:00 167.6 cm [facility] [place] [facility] Body weight 2022-11-16 21:29:00 102.967 kg [facility] [place] [facility] BMI 2022-11-16 21:29:00 36.64 kg/m2 [facility] ty [facility] Systolic blood 2022-11-11 20:37:00 120 mm[Hg] [facility] of [facility] [place] [facility] Diastolic blood 2022-11-11 20:37:00 80 mm[Hg] Unive rsity of [facility] [place] [facility] Heart rate 2022-11-11 20:37:00 93 /min [facility] [place] [facility] Body temperature 2022-11-11 20:37:00 36.11 Jennifer [facility] [place] [facility] Respiratory rate 2022-11-11 20:37:00 18 /min Univ [facility] [place] [facility] Body height 2022-11-11 20:37:00 167.6 cm [facility] [place] [facility] Body weight 2022-11-11 20:37:00 103.352 kg [facility] [place] [facility] BMI 2022-11-11 20:37:00 36.78 kg/m2 [facility] [place] [facility] Oxygen saturation in 2022-11-11 20:37:00 100 /min University Arterial blood by [facility] Pulse oximetry Branch Systolic blood 2022-11-01 16:42:00 105 mm[Hg] Univer sity of [facility] [place] [facility] Diastolic blood 2022-11-01 16:42:00 70 mm[Hg] Unive rsity of pressure [place] [facility] Heart rate 2022-11-01 16:42:00 100 /min [facility] [place] [facility] Body temperature 2022-11-01 16:42:00 36.94 Jennifer [facility] [place] [facility] Respiratory rate 2022-11-01 16:42:00 18 /min Univ ers[facility] [place] [facility] Body height 2022-11-01 16:42:00 167.6 cm [facility] [place] [facility] Body weight 2022-11-01 16:42:00 101.833 kg [facility] [place] [facility] BMI 2022-11-01 16:42:00 36.24 kg/m2 [facility] [place] [facility] Oxygen saturation in 2022-11-01 16:42:00 93 /min University of Arterial blood by [place] [employer] Pulse oximetry Branch Body height 2022-10-20 16:39:00 163[facility]8 cm [facility] weight 2022-10-20 16:39:00 101.651 [facility] BMI 2022-10-20 16:39:00 37.89 kg/m2 [facility] Systolic blood 2022-10-06 16:35:00 98 mm[Hg] [facility] [place] [facility] Diastolic blood 2022-10-06 16:35:00 65 mm[Hg] Unive rsity of [facility] [place] [facility] Heart rate 2022-10-06 16:35:00 96 /min [facility] [place] [facility] Body temperature 2022-10-06 16:35:00 36.44 Jennifer [facility] [place] [facility] Respiratory rate 2022-10-06 16:35:00 18 /min Univ [facility] [place] [facility] Body height 2022-10-06 16:35:00 167.6 cm [facility] [place] [facility] Body weight 2022-10-06 16:35:00 103.057 kg [facility] [place] [facility] BMI 2022-10-06 16:35:00 36.67 kg/m2 [facility] [place] [facility] Oxygen saturation in 2022-10-06 16:35:00 98 /min University of Arterial blood by [place] [employer] Pulse oximetry Branch Systolic blood 2022-09-21 14:16:00 138 mm[Hg] Univer sity of [facility] [place] [facility] Diastolic blood 2022-09-21 14:16:00 77 mm[Hg] Unive rsity of pressure [place] [facility] Heart rate 2022-09-21 14:16:00 72 /min [facility] [place] [facility] Body temperature 2022-09-21 14:16:00 36.78 Jennifer [facility] [place] [facility] Respiratory rate 2022-09-21 14:16:00 17 /min Univ [facility] [place] [facility] Body weight 2022-09-21 14:16:00 103.42 kg [facility] [place] [facility] BMI 2022-09-21 14:16:00 36.80 kg/m2 [facility] [place] [facility] Oxygen saturation in 2022-09-21 14:16:00 100 /min University of Arterial blood by [facility] Pulse oximetry Branch Systolic blood 2022-09-15 16:14:00 101 mm[Hg] Univer sity of pressure [place] [facility] Diastolic blood 2022-09-15 16:14:00 69 mm[Hg] Unive rsity of pressure [place] [facility] Heart rate 2022-09-15 16:14:00 80 /min [facility] [place] [facility] Body temperature 2022-09-15 16:14:00 36.33 Jennifer [facility] [place] [facility] Respiratory rate 2022-09-15 16:14:00 18 /min Univ ers[facility] [place] [facility] Body weight 2022-09-15 16:14:00 104.872 kg [facility] [place] [facility] BMI 2022-09-15 16:14:00 37.32 kg/m2 [facility] [place] [facility] Oxygen saturation in 2022-09-15 16:14:00 100 /min University of Arterial blood by [facility] Pulse oximetry Branch Systolic blood 2022-07-27 17:17:00 112 mm[Hg] Univer sity of [facility] [place] [facility] Diastolic blood 2022-07-27 17:17:00 72 mm[Hg] Unive rsity of [facility] [place] [facility] Heart rate 2022-07-27 17:17:00 92 /min [facility] [place] [facility] Body temperature 2022-07-27 17:17:00 36.72 Jennifer [facility] [place] [facility] Respiratory rate 2022-07-27 17:17:00 18 /min Univ [facility] [place] [facility] Body height 2022-07-27 17:17:00 167.6 cm [facility] [place] [facility] Body weight 2022-07-27 17:17:00 108.863 kg [facility] [place] [facility] BMI 2022-07-27 17:17:00 38.74 kg/m2 [facility] [place] [facility] Oxygen saturation in 2022-07-27 17:17:00 98 /min University of Arterial blood by [facility] Pulse oximetry Branch Systolic blood 2022-07-26 14:59:00 112 mm[Hg] Univer sity of [facility] [place] [facility] Diastolic blood 2022-07-26 14:59:00 74 mm[Hg] Unive rsity of [facility] [place] [facility] Heart rate 2022-07-26 14:59:00 67 /min [facility] [place] [facility] Body temperature 2022-07-26 14:59:00 36.72 Jennifer [facility] [place] [facility] Body height 2022-07-26 14:59:00 167.6 cm [facility] [place] [facility] Body weight 2022-07-26 14:59:00 109.045 kg [facility] [place] [facility] BMI 2022-07-26 14:59:00 38.80 kg/m2 [facility] [place] [facility] Systolic blood 2022-07-06 20:04:00 122 mm[Hg] Univer sity [facility] [place] [facility] Diastolic blood 2022-07-06 20:04:00 84 mm[Hg] Unive rsity of [facility] [place] [facility] Heart rate 2022-07-06 20:04:00 96 /min [facility] [place] [facility] Body temperature 2022-07-06 20:04:00 36.11 Jennifer [facility] [place] [facility] Respiratory rate 2022-07-06 20:04:00 18 /min Univ [facility] [place] [facility] Body height 2022-07-06 20:04:00 167.6 cm [facility] [place] [facility] Body weight 2022-07-06 20:04:00 109.634 kg [facility] [place] [facility] BMI 2022-07-06 20:04:00 39.01 kg/m2 [facility] [place] [facility] Oxygen saturation in 2022-07-06 20:04:00 100 /min University of Arterial blood by [facility] Pulse oximetry Branch Systolic blood 2022-06-28 14:43:00 105 mm[Hg] Univer sity of [facility] [place] [facility] Diastolic blood 2022-06-28 14:43:00 72 mm[Hg] Unive rsity of [facility] [place] [facility] Heart rate 2022-06-28 14:43:00 88 /min [facility] [place] [facility] Body temperature 2022-06-28 14:43:00 36.67 Jennifer [facility] [place] [facility] Respiratory rate 2022-06-28 14:43:00 18 /min Univ [facility] [place] [facility] Body height 2022-06-28 14:43:00 165.1 cm [facility] [place] [facility] Body weight 2022-06-28 14:43:00 110.678 kg [facility] [place] [facility] BMI 2022-06-28 14:43:00 40.60 kg/m2 [facility] [place] [facility] Systolic blood 2022-03-26 14:47:00 123 mm[Hg] Univer sity of [facility] [place] [facility] Diastolic blood 2022-03-26 14:47:00 80 mm[Hg] Unive rsity of pressure [place] [facility] Heart rate 2022-03-26 14:47:00 71 /min [facility] [place] [facility] Body temperature 2022-03-26 14:47:00 36.78 Jennifer [facility] [place] [facility] Respiratory rate 2022-03-26 14:47:00 18 /min Univ [facility] [place] [facility] Body height 2022-03-26 14:47:00 165.1 cm [facility] [place] [facility] Body weight 2022-03-26 14:47:00 115.214 kg [facility] [place] [facility] BMI 2022-03-26 14:47:00 42.27 kg/m2 [facility] [place] [facility] Systolic blood 2022-03-11 16:30:00 134 mm[Hg] Univer sity of [facility] [place] [facility] Diastolic blood 2022-03-11 16:30:00 74 mm[Hg] Unive rsity of pressure [place] [facility] Heart rate 2022-03-11 16:25:00 90 /min [facility] [place] [facility] Respiratory rate 2022-03-11 16:25:00 13 /min Univ ersity of [facility] Oxygen saturation in 2022-03-11 16:25:00 94 /min University of Arterial blood by [facility] Pulse oximetry Branch Body temperature 2022-03-11 15:15:00 36.11 Jennifer [facility] [place] [facility] Body height 2022-02-15 18:19:00 167.6 cm [facility] [place] [facility] Body weight 2022-02-15 18:19:00 118.7 kg [facility] [place] [facility] BMI 2022-02-15 18:19:00 42.26 kg/m2 [facility] [place] [facility] Systolic blood 2022-03-11 12:29:00 140 mm[Hg] Univer sity of pressure [place] [facility] Diastolic blood 2022-03-11 12:29:00 62 mm[Hg] Unive rsity of pressure [place] [facility] Heart rate 2022-03-11 12:29:00 96 /min [facility] [place] [facility] Body temperature 2022-03-11 12:29:00 36.33 Jennifer [facility] [place] [facility] Respiratory rate 2022-03-11 12:29:00 18 /min Univ [facility] [place] [facility] Oxygen saturation in 2022-03-11 12:29:00 99 /min University Arterial blood by [facility] Pulse oximetry Branch Body height 2022-02-15 18:19:00 167.6 cm [facility] [place] [facility] Body weight 2022-02-15 18:19:00 118.7 kg [facility] [place] [facility] BMI 2022-02-15 18:19:00 42.26 kg/m2 [facility] [place] [facility] Systolic blood 2022-03-11 00:27:00 121 mm[Hg] Univer sity of [facility] [place] [facility] Diastolic blood 2022-03-11 00:27:00 84 mm[Hg] Unive rsity of [facility] [place] [facility] Heart rate 2022-03-11 00:27:00 94 /min [facility] [place] [facility] Body temperature 2022-03-11 00:27:00 37.17 Jennifer [facility] [place] [facility] Respiratory rate 2022-03-11 00:27:00 18 /min Univ [facility] [place] [facility] Body height 2022-03-11 00:27:00 167.6 cm [facility] [place] [facility] Body weight 2022-03-11 00:27:00 115.713 kg [facility] [place] [facility] BMI 2022-03-11 00:27:00 41.20 kg/m2 [facility] [place] [facility] Oxygen saturation in 2022-03-11 00:27:00 98 /min University of Arterial blood by [facility] Pulse oximetry Branch Weight 2018-09-01 09:30:00 241.375 [...] Performing Clinician Source Performed EXTERNAL PROVIDER RECORDS 2022-11-12 05:01:00 Doctor Unaarvind, [facility] POCT URINALYSIS 2022-10-06 16:57:00 Tnaya Bradshaw [facility] POCT URINALYSIS 2022-09-21 14:35:00 Marya Jean [facility] EXTERNAL PROVIDER RECORDS 2022-08-04 05:01:00 Doctor Pan [facility] POCT URINALYSIS W/O 2022-07-26 15:00:00 Alexandria Lowe [facility] SPECIFIC [facility] PATIENT FINANCIAL 2022-07-26 14:43:17 Doctor Unassblue, [facility] POLICY [place] [facility] XR HIPS 2 VW BILATERAL 2022-07-07 15:05:16 Michael Brewer [facility] URINE CULTURE 2022-06-28 15:29:00 Alexandria Lowe [facility] POCT URINALYSIS W/O 2022-06-28 14:55:00 Alexandria Lowe [facility] EXTERNAL PROVIDER RECORDS 2022-04-06 06:01:00 Doctor Pan, [facility] [place] ASSIGNMENT OF BENEFITS 2022-03-26 14:32:31 Doctor Unassblue, [facility] Name [facility] [place] CYSTOSCOPY 2022-03-11 13:52:00 [facility] UND[facility] ANESTHESIA 2022-03-11 13:52:[address] [facility] BOTOX INJECTION 2022-03-11 13:52:00 Alexandria Lowe [facility] CYSTOSCOPY 2022-03-11 13:52:00 Alexandria Lowe [facility] EXAM UNDER ANESTHESIA 2022-03-11 13:52:[address] [facility] BOTOX INJECTION 2022-03-11 13:52:00 [facility] (AUTOMATED) 2022-03-11 12:47[facility]00 [facility] 2022-03-11 12:47:00 Alexandria Lowe [facility] DAY SURGERY - ADC 2022-03-11 05:01:00 Doctor Pan, [facility] [place] [facility] CONSENT/REFUSAL FOR 2022-02-15 19:55:32 Doctor Pan [facility] DIAGNOSIS AND TREATMENT [place] [facility] CONSENT/REFUSAL FOR 2022-02-15 19:55:32 Doctor Pan, [facility] DIAGNOSIS AND TREATMENT [place] [facility] ASSIGNMENT OF BENEFITS 2022-02-15 19:54:41 Doctor Pan, [facility] [place] [facility] ASSIGNMENT OF BENEFITS 2022-02-15 19:54:41 [facility], [facility] [place] [facility] EXTERNAL PROVIDER RECORDS 2022-02-10 05:01:00 Doctor Pan [facility] [place] [facility] [U] XRAY KNEE 4 OR MORE 2018-03-21 00:00:00 [facility] VWS LEFT [id number] [facility]olecyst[facility] History of Treatment Of [facility] The Right Leg History of Shoulder [facility] Surgery Right History of Kidney Surgery [facility] Plan of Care Planned Activity Planned Date Details Comments Source Future Scheduled 2023-01-24 [facility] Test 00:06:22 malignant neoplasm of colon (procedure) [code = 002593501] Future Scheduled 2023-01-24 [facility] Test 00:06:22 malignant neoplasm of colon (procedure) [code = 112054226] Future Scheduled 2023-01-24 [facility] 00:06:22 malignant neoplasm of colon (procedure) [code = 337561046] Future Scheduled 2023-01-24 COVID-19 VACCINE (#1) [facility] Test 00:06:22 [code = COVID-19 VACCINE (#1)] Future Scheduled 2023-01-24 [facility] 00:06:22 SCREENING [code = BREAST CANCER SCREENING] Future Scheduled 2023-01-24 [facility] Test 00:06:22 malignant neoplasm of colon (procedure) [code = 620318794] Future Scheduled 2023-01-24 [facility] for [facility] Test 00:06:22 malignant neoplasm of colon (procedure) [code = 912249899] Future Scheduled 2023-01-24 SHINGLES VACCINES (1 [facility] Test 00:06:22 of 2) [code = SHINGLES VACCINES (1 of 2)] Future Scheduled 2023-01-24 65+ PNEUMOCOCCAL [facility] Test 00:06:22 VACCINE (2 - PCV) [code = 65+ PNEUMOCOCCAL VACCINE (2 - PCV)] Future Scheduled 2023-01-24 INFLUENZA VACCINE (#1) [facility] Test 00:06:22 [code = INFLUENZA VACCINE (#1)] Future Scheduled 2022-08-27 SHINGLES VACCINES (1 Met [facility] Test 06:54:09 of 2) [code = SHINGLES VACCINES (1 of 2)] Future Scheduled 2022-08-27 65+ PNEUMOCOCCAL [facility] Test 06:54:09 VACCINE (2 - PCV) [code = 65+ PNEUMOCOCCAL VACCINE (2 - PCV)] Future Scheduled 2022-08-27 INFLUENZA VACCINE Method [facility] Hospital Test 06:54:09 [code = INFLUENZA VACCINE] Future Scheduled 2022-08-27 COVID-19 VACCINE (#1) [facility] Test 06:54:09 [code = COVID-19 VACCINE (#1)] Future Scheduled 2022-08-27 [facility] Test 06:54:09 SCREENING [code = BREAST CANCER SCREENING] Future Scheduled 2022-08-27 COLONOSCOPY SCREENING [facility] Test 06:54:09 [code = COLONOSCOPY SCREENING] Future Scheduled 2022-03-26 HEPATITIS B VACCINES Met [facility] Test 06:53:24 (1 of 3 - 3-dose series) [code = HEPATITIS B VACCINES (1 of 3 - 3-dose series)] Future Scheduled 2022-03-26 COVID-19 VACCINE (#1) [facility] Test 06:53:24 [code = COVID-19 VACCINE (#1)] Future Scheduled 2022-03-26 [facility] Test 06:53:24 SCREENING [code = BREAST CANCER SCREENING] Future Scheduled 2022-03-26 COLONOSCOPY SCREENING [facility] Test 06:53:24 [code = COLONOSCOPY SCREENING] Future Scheduled 2022-03-26 SHINGLES VACCINES (1 [facility] Test 06:53:24 of 2) [code = SHINGLES VACCINES (1 of 2)] Future Scheduled 2022-03-26 65+ PNEUMOCOCCAL [facility] Test 06:53:24 VACCINE (2 - PCV) [code = 65+ PNEUMOCOCCAL VACCINE (2 - PCV)] Future Scheduled 2022-03-26 INFLUENZA VACCINE Method [facility] Test 06:53:24 [code = INFLUENZA VACCINE] Future Scheduled 2022-01-20 HEPATITIS B VACCINES [facility] Test 19:31:47 (1 of 3 - 3-dose series) [code = HEPATITIS B VACCINES (1 of 3 - 3-dose series)] Future Scheduled 2022-01-20 COVID-19 VACCINE (#1) [facility] Test 19:31:47 [code = COVID-19 VACCINE (#1)] Future Scheduled 2022-01-20 [facility] Test 19:31:47 SCREENING [code = BREAST CANCER SCREENING] Future Scheduled 2022-01-20 COLONOSCOPY SCREENING [facility] Test 19:31:47 [code = COLONOSCOPY SCREENING] Future Scheduled 2022-01-20 SHINGLES VACCINES (1 Met [facility] Test 19:31:47 of 2) [code = SHINGLES VACCINES (1 of 2)] Future Scheduled 2022-01-20 65+ [facility]OCOCCAL [facility] Test 19:31:47 VACCINE (2 - PCV) [code = 65+ PNEUMOCOCCAL VACCINE (2 - PCV)] Future Scheduled 2022-01-20 INFLUENZA VACCINE [facility] Test 19:31:47 [code = INFLUENZA VACCINE] Encounters Start End Encounter Admission Attending Care Care Encounter Source Date/Time Date/Time Type Type Clinicians Facility Department ID 2022-12-06 Outpatient [facility] [id number] [place] 12:22:22 [id number] [facility] 2022-10-26 Outpatient [facility] [id number] [place] 10:57:27 [id number] [facility] 2022-10-20 Outpatient [facility] [id number] [place] 10:23:59 [id number] [facility] 2022-08-31 Outpatient R ALEXANDRIA LOWE [facility] SOLE BUFFER [id number] Univers 11:05:30 ALEXANDRIA LOWE [facility] 2022-08-23 Outpatient [facility] [id number] [place] 14:35:16 [id number] [facility] 2021-03-20 Inpatient [facility] [id number] Univers 16:57:39 CASEY [facility] 2021-03-20 Outpatient ENRIQUETA [facility] [id number] Univers 03:06:42 SONDRA Kate [facility] 2020-11-05 [id number] [place] [facility] 2023-11-21 2023-11-21 Outpatient R BRIANNA PEREYRA [facility] [id number] Univers 13:30:00 13:30:00 BRIANNA PEREYRA [facility] 2023-05-12 2023-05-12 Outpatient R RAMIRO [facility] [id number] Univers 08:00:00 08:00:00 MICHAEL [facility] 2023-02-17 2023-02-17 Outpatient LYNDSEY [facility] [id number] [facility] 11:30:00 11:30:00 Critical access hospital 2023-02-03 2023-02-03 [facility] [id number] Univers 00:00:00 00:00:00 Michael OSPINA [id number] i Julia [id number] Sebas VÁSQUEZ [id number] Ia dical [address] 2023-02-02 2023-02-02 Telephone [facility] [id number] Univers 00:00:00 00:00:00 Michael OSPINA [id number] i ty [id number] [id number] Ia dical NAL [address] [facility] 2023-01-26 2023-01-26 Refill [facility] [id number] Univers 00:00:00 00:00:00 Michael BHAVESH [id number] i ty [id number] [id number] Ia dical NAL 0[address] [facility] 2023-01-21 2023-01-21 Office JEANNE Guaman [place] [id number] [place] 08:30:00 10:14:40 Visit Patricia GALAN AND [id number] Health [facility] [id number] MEDICAL [id number] ALFREDOZA 2 2022-11-16 2022-11-16 Outpatient R BRIANNA PEREYRA [facility] U TMB [id number] Univers 16:30:00 16:49:30 BRIANNA PEREYRA ity [facility] 2022-11-16 2022-11-16 Office Bhaarthi [facility] 1.2.840.114 10 [id number] Univers 16:30:00 16:49:30 Visit Brianna olson 350.1.13.10 ity [place] [phone] Ia dical NAL 134 [facility] 2022-11-12 2022-11-12 Orders Doctor PATHAK 1.2.840.114 [id number] Univers 00:00:00 00:00:00 Only Unassigned, LILLY 350.1.13.10 ity of [place] [facility] 4.2.7.2.686 Malachi as [phone] [address] 2022-11-11 2022-11-11 Outpatient R RAMIRO [facility] [id number] Univers 15:20:00 16:18:32 MICHAEL ity [facility] 2022-11-11 2022-11-11 Office [facility] 1.2.840.114 [id number] Univers 15:20:00 16:18:32 Visit Michael OSPINA 350.1.13.10 i ty [facility] [place] [id number] [facility] 044 [facility] 2022-11-10 2022-11-10 Out[facility] 1044 [id number] Univers 08:40:00 08:40:00 MICHAEL imani [facility] 2022-11-08 2022-11-08 Refill RuizpatsybandarnicoleZUN[facility] 1.2.840.114 104 [id number] Univers 00:00:00 00:00:00 Michael OSPINA 350.1.13.10 i ty [place] [id number] [address] 2022-11-01 2022-11-01 Outpatient R STEPHON [facility] [id number] Univers 11:40:00 11:57:45 [facility] 2022-11-01 2022-11-01 Urgent Rosa [facility] 1.2.840.11 4 [id number] Univers 11:40:00 11:57:45 Care Unknown, Attending HEALTH 350.1.13.10 ity lauren [place] 4.2.7.2.686 Malachi as SHAI?BLEA [id number] [address] MEDICAL OFFICE BUILDING 2022-10-25 2022-10-25 Outpatient R BRIANNA PEREYRA [facility] U TMB [id number] Univers 08:00:00 08:00:00 BRIANNA PEREYRA [facility] 2022-10-21 2022-10-21 Outpatient Alexander PENA [facility] [id number] Univers 14:00:00 14:00:00 KEHINDE [facility] 2022-10-21 2022-10-21 Outpatient Alexander PENA [facility] [id number] Univers 14:00:00 14:00:00 KEHINDE itimani [facility] 2022-10-20 2022-10-20 Outpatient [facility] [id number] [place] 11:00:00 12:25:12 Health 2022-10-20 2022-10-20 Office Rubén, [facility] 1.2.840.114 [id number] [place] 11:00:00 12:25:12 Visit Justus GALAN AND 350.1.13.58 Health [place] 9.2.7.2.686 MEDICAL [id number] [place] 2 2022-10-12 2022-10-12 Refill [facility] 1..519.579 7011 [id number] Univers 00:00:00 00:00:00 [facility] 350.1.13.10 it y of [place] 4.2.7.2.686 Malachi as SHAI?BLEA [id number] [address] OFFICE [facility] 2022-10-06 2022-10-06 Outpatient R KENYA [facility] [id number] Univers 11:40:00 11:52:10 [facility] 2022-10-06 Urgent Tanya Bradshaw [facility] 1..840.114 1 [id number] Univers 11:40:00 11:52:10 Care Unknown, Attending [facility] 350.1.13.10 ity of [place] 4.2.7.2.686 Malachi as SHAI?BLEA [id number] [address] OFFICE [facility] 2022-10-05 2022-10-05 Telephone [facility] 1.2.840.114 1 [id number] Univers 00:00:00 00:00:00 Michael OSPINA 350.1.13.10 i ty [facility] 4.[place] [id number] [address] 2022-10-04 2022-10-04 Refill [facility] 1.2.840.114 103 [id number] Univers 00:00:00 00:00:00 Michael OSPINA 350.1.13.10 i ty [facility] 4.2.7.2.686 Malachia wesley VÁSQUEZ [id number] Ia dical [facility] 044 [facility] 2022-09-30 2022-09-30 Telephone ZO Aaron 1..500.306 1133 [id number] Univers 00:00:00 00:00:00 Mariana A LILLY 350.1.13.10 ity of [facility] 4.2.7.2.686 Malachi as [id number] [facility] [address] 2022-09-21 2022-09-21 Outpatient R STEPHON [facility] [id number] [id number] Univers 09:20:00 09:41:50 REENU ity of [facility] 2022-09-21 2022-09-21 Urgent Taras [facility]Prem[facility] 1..840.11 4 [id number] Univers 09:20:00 09:41:50 Care Unknown, Attending [facility] 350.1.13.10 ity of [place] 4.2.7.2.686 Malachi as SHAI?BLEA [id number] Ia dicanneliese [address] OFFICE [facility] 2022-09-15 2022-09-15 Outpatient R BECKY [facility] [id number] Univers 11:00:00 11:33:38 KEHINDE ity [facility] 2022-09-15 2022-09-15 Urgent Becky [facility] 1..840.11 4 [id number] Univers 11:00:00 11:33:38 Care Unknown, Attending HEALTH 350.1.13.10 ity of [place] 4.2.7.2.686 Malachi as SHAI?BLEA [id number] [address] OFFICE [facility] 2022-09-15 2022-09-15 Refill [facility] 1.2.648.200 0331 [id number] Univers 00:00:00 00:00:00 [facility] 350.1.13.10 it y of [place] 4.2.7.2.686 Malachi as SHAI?BLEA [id number] [address] OFFICE [facility] 2022-09-06 2022-09-06 Refill Ramiro [facility] 1.2.840.114 102 [id number] Univers 00:00:00 00:00:00 Michael OSPINA 350.1.13.10 i ty [place] [id number] Ia dical NAL [address] [place] [address] 2022-08-23 2022-08-23 Outpatient R [facility] [id number] Univers 09:00:00 09:00:00 ity of [facility] 2022-08-07 2022-08-07 Refill [facility] 1.2.840.114 101 [id number] Univers 00:00:00 00:00:00 Michael OSPINA 350.1.13.10 i ty of [place] [id number] [address] 2022-08-04 2022-08-04 Orders Doctor ZO 1.2.840.114 [id number] Univers 00:00:00 00:00:00 Only Unassigned, LILLY 350.1.13.10 ity of [facility] 4.2.7.2.686 Malachi as [phone] [address] 2022-07-27 2022-07-27 Outpatient [facility] [id number] [id number] Univers 11:00:00 11:49:24 MICHAEL [facility] 2022-07-27 2022-07-27 Office [facility] 1.2.840.114 100 [id number] Univers 11:00:00 11:49:24 Visit Michael OSPINA 350.1.13.10 i ty of [place] [phone] Ia dicwv NAL [address] [place] [address] 2022-07-27 2022-07-27 Outpatient [facility] [id number] Univers 09:30:00 09:30:00 MICHAEL banda [facility] 2022-07-26 2022-07-26 Outpatient R [facility] [id number] Univers 09:00:00 09:52:31 ALEXANDRIA banda [facility] 2022-07-26 2022-07-26 Office [facility] 1.2.840.114 [id number] Univers 09:00:00 09:52:31 Visit Alexandria OSPINA 350.1.13.10 i ty [place] [id number] [facility] 098 [facility] 2022-07-26 2022-07-26 Orders Doctor ZO 1.2.840.114 [id number] Univers 00:00:00 00:00:00 Only Unassigned, LILLY 350.1.13.10 [facility] 4.2.7.2.686 Malachi as [id number] [facility] [address] 2022-07-26 2022-07-26 Prep For [facility] 1.2.313.333 0320 [id number] Univers 00:00:00 00:00:00 Surgery Alexandria OSPINA 350.1.13.10 i ty [place] [id number] [facility] 098 [facility] 2022-07-22 2022-07-22 Refill [facility] 1.2.840.114 101 [id number] Univers 00:00:00 00:00:00 Michael OSPINA 350.1.13.10 i ty of [place] [id number] [facility] 044 [facility] 2022-07-07 2022-07-07 Out[facility] 1044 [id number] Univers 08:38:07 23:59:00 MICHAEL itimani of [facility] 2022-07-07 2022-07-07 [facility] 1.2.840.114 10 [id number] Univers 08:38:07 23:59:00 Encounter Michael OSPINA 350.1.13.10 ity of [facility] 4.2.7.2.[place] [id number] [facility] [address] 2022-07-07 2022-07-07 Surety Bond Agent 2, Adc Lab [facility] 1.2.840.114 [id number] Univers 08:45:00 09:00:00 Visit Michael Brewer 350.1.13.10 ity of [place].2.[place] [id number] Ia dical NAL 353 [facility] 2022-07-06 2022-07-06 Outpatient [facility] 1043 [id number] Univers 14:00:00 15:06:17 MICHAEL banda [facility] 2022-07-06 2022-07-06 [facility] 1.2.840.114 [id number] [facility] 14:00:00 15:06:17 Visit Michael OSPINA 350.1.13.10 i ty of [place] 4.2.7.2.[place] [phone] Ia dical NAL 044 [facility] 2022-06-30 2022-06-30 Telephone [facility] 1.2.840.114 100 [id number] Univers 00:00:00 00:00:00 Alexandria OSPINA 350.1.13.10 i ty [facility] 4.2.7.2.[place] [id number] Ia dical NAL 098 [facility] 2022-06-28 2022-06-28 Outpatient [facility] [id number] Univers 09:00:00 09:30:15 ALEXANDRIA banda [facility] 2022-06-28 2022-06-28 Office [facility] 1.2.840.114 [id number] [facility] 09:00:00 09:30:15 Visit Alexandria OSPINA 350.1.13.10 i ty of [place] 4[place]2.7.2.[place] [phone] Ia dical NAL 098 [facility] 2022-06-21 2022-06-21 Refill [facility] 1.2.840.114 100 [id number] Univers 00:00:00 00:00:00 Michael OSPINA 350.1.13.10 i ty of [place]2.7.2.[place] 594.4736384 Ia dical NAL 044 [facility] 2022-06-16 2022-06-16 [facility] 1.2.840.114 100 [id number] Univers 00:00:00 00:00:00 Michael OSPINA 350.1.13.10 i ty [place] [id number] [address] 2022-06-01 2022-06-01 Refill [facility] 1.2.840.114 [id number] [id number] Univers 00:00:00 00:00:00 [facility] 350.1.13.10 it y of [place] 4.2.7.2.686 Malachi as SHAI?BLEA [id number] [address] OFFICE [facility] 2022-05-26 2022-05-26 [facility] [place] 1.2.840.114 [id number] Univers 00:00:00 00:00:00 Michael OSPINA 350.1.13.10 i ty of [place] [id number] [address] 2022-05-26 2022-05-26 Telephone [facility] 1.2.840.114 9 [id number] Univers 00:00:00 00:00:00 Michael OSPINA 350.1.13.10 i ty of [place] [id number] [address] 2022-05-17 2022-05-17 Telephone [facility] 1.2.840.114 9 [id number] Univers 00:00:00 00:00:00 Michael OSPINA 350.1.13.10 i ty of [place] [id number] [address] 2022-04-06 2022-04-06 Orders Doctor ZO 1.2.840.114 [id number] Univers 00:00:00 00:00:00 Only Unassigned, LILLY 350.1.13.10 ity of [place] [facility] 4.2.7.2.686 Malachi as [phone] [address] 2022-03-26 2022-03-26 Outpatient [facility] [id number] Univers 10:00:00 10:12:46 ALEXANDRIA itimani [facility] 2022-03-26 2022-03-26 Office [facility] 1.2.840.114 [id number] Univers 10:00:00 10:12:46 Visit Alexandria OSPINA 350.1.13.10 i ty of [place] 4.2.7.2.[place] [id number] Ia dical [facility]8 [facility] 2022-03-26 2022-03-26 Orders Doctor ZO 1.2.840.114 [id number] Univers 00:00:00 00:00:00 Only Unassigned, LILLY 350.1.13.10 ity of [place] [facility] 4.2.7.2.686 Malachi as [id number] [address] 2022-03-11 2022-03-11 Outpatient R [facility] [id number] Univers 07:21:00 11:44:00 ALEXANDRIA banda [facility] 2022-03-11 2022-03-11 Hospital [facility] 1.2.768.845 [id number] Univers 07:21:00 11:44:00 Encounter Alexandria OSPINA 350.1.13.10 ity of [place] 4.2.7.2.[place] SURGICAL [id number] [facility] [address] 2022-03-11 2022-03-11 Surgery [facility] 1.2.840.114 [id number] Univers 08:45:00 10:05:00 Alexandria OSPINA 350.1.13.10 i ty of [place] 4[place]2.7.2.[place]GICAL [id number] [facility] [address] 2022-03-11 2022-03-11 Orders Doctor ZO 1.2.840.114 [id number] Univers 00:00:00 00:00:00 Only Unassigned, LILLY 350.1.13.10 ity of [place] [facility] 4.2.7.2.686 Malachi as [id number] [address] 2022-03-10 2022-03-10 Outpatient R MEKA [facility] [id number] Univers 19:00:00 19:38:31 AMY randolph [facility] 2022-03-10 2022-03-10 Urgent Amy Miner [facility] 1.2.840. 114 [id number] Univers 19:00:00 19:38:31 Care Unknown, Attending HEALTH 350.1.13.10 ity of [place] 4.2.7.2.686 Malachi as SHAI?BLEA [id number] [facility] [address] MEDICAL OFFICE [facility] 2022-03-03 2022-03-03 Telephone [facility] 1.2.840.114 9 [id number] Univers 00:00:00 00:00:00 Michael OSPINA 350.1.13.10 i ty of [place] [phone] Ia margret NAL 044 [facility] 2022-02-15 2022-02-15 Telemedici [facility] 1.2.840.114 [id number] Univers 16:30:00 17:00:00 ne Visit Alexandria OSPINA 350.1.13.10 ity of [place] 4.[place].7.2.[place] [id number] Ia margret [facility] 098 [facility] 2022-02-15 2022-02-15 Outpatient R MYNOR [facility] [id number] Univers 16:30:00 16:30:00 A[place]ANDRI[place] banda of [facility] 2022-02-15 2022-02-15 Surety Bond Agent Donn Henao Lab Main [facility] 1.2.8 40.114 [id number] Univers 14:45:00 15:00:00 Visit Mynor Alexandriatanya OSPINA 350.1.13.10 ity of [place] 4[place]2.7.2.[place] [id number] Ia margret [facility] 353 [facility] 2022-02-15 2022-02-15 Outpatient R MYNOR [facility] [id number] Univers 14:45:00 14:45:00 ALEXANDRIA banda of [facility] 2022-02-15 2022-02-15 Prep For [facility] 1.2.779.847 [id number] Univers 00:00:00 00:00:00 Surgery Alexandria OSPINA 350.1.13.10 i ty [facility] 4.2.7.[place] [id number] Ia dical NAL 098 [facility] 2022-02-10 2022-02-10 Orders Doctor ZO 1.2.840.114 [id number] Univers 00:00:00 00:00:00 Only Unassigned, LILLY 350.1.13.10 ity of [place] [facility] 4.2.7.2.686 Malachi as [id number] [address] 2022-02-08 2022-02-08 Telephone [facility] 1.2.840.114 9 [id number] Univers 00:00:00 00:00:00 Michael OSPINA 350.1.13.10 i ty [facility] 4.2.7.[place] [phone] Ia dical NAL 044 [facility] 2022-02-03 2022-02-03 Telephone [facility] 1.2.840.114 9 [id number] Univers 00:00:00 00:00:00 Michael OSPINA 350.1.13.10 i ty [facility] 4.2.7.2.[place] 695.0787252 Ia dical NAL 231 [facility] 2021-12-31 2021-12-31 Refill [facility] 1.2.840.114 [id number] [id number] Univers 00:00:00 00:00:00 Michael OSPINA 350.1.13.10 i ty of [facility] 4.2.7.2.[place] 609.7522101 Ia dical NAL 044 [facility] 2021-12-30 2021-12-30 Refill [facility] 1.2.840.114 [id number] Univers 00:00:00 00:00:00 Michael OSPINA 350.1.13.10 i ty [facility] 4.2.7.2.[place] [phone] Ia dical NAL 044 [facility] 2021-12-25 2021-12-25 Telephone [facility] 1.2.840.114 9 [id number] Univers 00:00:00 00:00:00 Michael OSPINA 350.1.13.10 i ty of [place] 4[place]2.7.2.[place] [id number] [facility] 044 [facility] 2021-12-24 2021-12-24 [facility] 1.2.840.114 9 [id number] Univers 00:00:00 00:00:00 Michael OSPINA 350.1.13.10 i ty of [place].2.[place] [id number] [facility] 231 [facility] 2021-12-23 2021-12-23 Surety Bond Agent 2, Adc Lab [facility] 1.2.840.114 [id number] Univers 09:00:00 09:15:00 Visit Michael Brewer 350.1.13.10 ity of [facility] 4.2.7.2.[place] [phone] [facility] 353 [facility] 2021-12-23 2021-12-23 Outpatient [facility] 1039 [id number] Univers 09:00:00 09:00:00 MICHAEL banda [facility] 2021-12-23 2021-12-23 Outpatient [facility] [id number] [id number] Univers 08:00:00 08:49:44 MICHAEL banda [facility] 2021-12-23 2021-12-23 [facility] 1.2.840.114 [id number] Univers 08:00:00 08:49:44 Visit Michael OSPINA 350.1.13.10 i ty of [place] 4[place]2.7.2.[place] [phone] Ia dic[address] 2021-12-23 2021-12-23 Outpatient [facility] 1039 [id number] Univers 08:00:00 08:00:00 MICHAEL banda [facility] 2021-12-15 2021-12-15 Refill [facility] 1.2.840.114 [id number] Univers 00:00:00 00:00:00 Michael OSPINA 350.1.13.10 i ty [facility] 4.2.7.2.[place] [id number] [address] 2021-12-07 2021-12-07 Outpatient R MYNOR [facility] [id number] Univers 10:00:00 10:00:00 ALEXANDRIA ity of [facility] 2021-12-04 2021-12-04 Telephone [facility] 1.2.840.114 [id number] Univers 00:00:00 00:00:00 Naeem OSPINA 350.1.13.10 ity of [facility] 4.2.7.2.[place] [id number] [address] 2021-12-04 2021-12-04 Telephone [facility] 1.2.840.114 [id number] Univers 00:00:00 00:00:00 Naeem [place] 350.1.13.10 ity of [facility] 4.2.7.2.[place] [id number] [address] 2021-11-25 2021-11-25 Outpatient R NIRANJAN KRISTIAN [facility] [id number] Univers 09:00:00 09:00:00 ity of [facility] 2021-11-12 2021-11-12 Telephone L[facility] 1.2.862.439 [id number] Univers 00:00:00 00:00:00 [employer] 350.1.13.10 it y of [facility] 4.2.7.2.686 Malachi as SHAI?BLEA [id number] [address] 2021-11-02 2021-11-02 Telephone [facility] 1.2.840.114 [id number] Univers 00:00:00 00:00:00 Alexandria OSPINA 350.1.13.10 i ty of [facility] 4.2.7.2.[place] [id number] [address] BUILDING 2021-10-30 2021-10-30 Telephone [facility] 1.2.840.114 [id number] Univers 00:00:00 00:00:00 Alexandria BHAVESH 350.1.13.10 i ty of [place].2.[place] 768.7895315 Ia dical NAL 134 [facility] 2021-10-28 2021-10-28 Refill [facility] 1.2.840.114 [id number] Univers 00:00:00 00:00:00 Wondiful A HEALTH 350.1.13.10 ity of [place] 4.2.7.2.686 Malachi as SHAI?BLEA [id number] Ia margret KNEY 044 [facility] OFFICE [facility] 2021-10-26 2021-10-26 Office [facility] 1.2.840.114 [id number] Univers 14:30:00 15:09:33 Visit Alexandria OSPINA 350.1.13.10 i ty of [place].2.[place] 377.7544408 Ia dicwv NAL 098 [facility] 2021-10-26 2021-10-26 Outpatient [facility] [id number] Univers 14:30:00 15:09:33 A[place]ANDRIA rosinaimani [facility] 2021-10-26 2021-10-26 Outpatient [facility] [id number] Univers 14:30:00 15:09:33 A[place] veronika [facility] 2021-10-26 2021-10-26 Outpatient [facility] [id number] Univers 14:30:00 14:30:00 [place] veronika [facility] 2021-10-26 2021-10-26 Outpatient [facility] [id number] Univers 14:30:00 14:30:00 [facility] 2021-10-26 2021-10-26 Orders Doctor PATHAK 1.2.840.114 [id number] Univers 00:00:00 00:00:00 Only Unassigned, LILLY 350.1.13.10 ity of [place] [facility] 4.2.7.2.686 Malachi as [phone] [facility] [address] 2021-10-21 2021-10-21 Outpatient Alexander PENA [facility] [id number] Univers 14:30:00 15:00:40 [facility] 2021-10-21 2021-10-21 Office [facility] 1.2.396.094 [id number] Univers 14:30:00 15:00:40 Visit Kehinde OSPINA 350.1.13.10 i ty [facility] 4.2.7.2.[place] [facility] [phone] Ia dical [address] 2021-10-21 2021-10-21 Outpatient R BECKY [facility] [id number] Univers 14:30:00 15:00:40 [facility] 2021-10-21 2021-10-21 Outpatient Alexander PENA [facility] [id number] Univers 14:30:00 14:30:00 [facility] 2021-10-21 2021-10-21 Outpatient R BECKY [facility] [id number] Univers 14:30:00 14:30:00 [facility] 2021-10-21 2021-10-21 Outpatient R BECKY [facility] [id number] Univers 14:30:00 14:30:00 [facility] 2021-10-21 2021-10-21 Outpatient Alexander PENA [facility] [id number] Univers 14:30:00 14:30:00 [facility] 2021-10-02 2021-10-02 [facility] [id number] Univers 07:47:29 23:59:00 Encounter Michael OSPINA [id number] ity [facility] [id number] [facility] [id number] [facility] [address] 2021-10-02 2021-10-02 [facility] [id number] Univers 07:47:28 23:59:00 [facility]-10-02 2021-10-02 Outpatient R RAMIRO [facility] [id number] Univers 00:00:00 00:00:00 MICHAEL banda [facility] 2021-09-28 2021-09-28 [employer] Agent Juliano, Don[facility] [id number] Univers 10:30:00 10:45:00 Visit Michael Brewer [id number] [facility] [id number] [phone] Ia dical NAL [address] [facility] 2021-09-28 2021-09-28 Outpatient R RAMIRO [facility] [id number] Univers 10:30:00 10:30:00 MICHAEL banda [facility] 2021-09-28 2021-09-28 [facility] [id number] Univers 10:30:00 10:30:00 MICHAEL veronika [facility] 2021-09-28 2021-09-28 Outpatient R JANETTE [facility] [id number] Univers 08:30:00 08:30:00 LALO veronika [facility] 2021-09-28 2021-09-28 Orders Doctor ZO [id number] Univers 00:00:00 00:00:00 Only Unassigned, LILLY [id number] ity of [place] [facility] [id number] Malachi as [phone] [address] 2021-09-17 2021-09-17 [facility] [id number] Univers 10:40:00 11:17:37 MICHAEL banda [facility] 2021-09-17 2021-09-17 Office RamiroZUNI [facility] 1.2.840.114 [id number] Univers 10:40:00 11:17:37 Visit Michael OSPINA 350.1.13.10 i ty [facility] [place] [phone] Ia dical NAL 044 [facility] 2021-09-17 2021-09-17 Office EdemekongZUNI [facility] 1.2.840.114 [id number] Univers 10:00:00 10:40:00 Visit Michael BHAVESH 350.1.13.10 i ty [facility] [place] [phone] [facility] 044 [facility] 2021-09-17 2021-09-17 [facility] [id number] Univers 10:00:00 10:00:00 MICHAEL [facility] 2021-09-17 2021-09-17 Outpatient R [facility] [id number] Univers 10:00:00 10:00:00 MICHAEL [facility] 2021-08-28 2021-08-28 [facility] 1.2.840.114 [id number] Univers 00:00:00 00:00:00 Wondiful A HEALTH 350.1.13.10 ity of [place] 4.2.7.2.686 Malachi as SHAI?BLEA [phone] [address] 2021-08-27 2021-08-27 Brennan ChatmanZUNI [facility] 1.2.840.114 [id number] Univers 00:00:00 00:00:00 Wondiful A HEALTH 350.1.13.10 ity of [place] 4.2.7.2.686 Malachi as SHAI?BLEA [phone] [address] 2021-08-25 2021-08-25 Telephone Becky [facility] 1.2.840.114 [id number] Univers 00:00:00 00:00:00 Kehinde BHAVESH 350.1.13.10 i ty [facility] [place] [phone] Ia juanawv NAL 134 [facility] 2021-08-19 2021-08-19 Brennan ChatmanZUNI [facility] 1.2.840.114 [id number] Univers 00:00:00 00:00:00 Wondiful A HEALTH 350.1.13.10 ity of [place] 4.2.7.2.686 Malachi as SHAI?BLEA [phone] [facility] NATALIIA [address] [facility] 2021-08-10 2021-08-10 Brennan BoldenefeeZUNI [facility] 1.2.840.114 [id number] Univers 00:00:00 00:00:00 Aym HEALTH 350.1.13.10 i ty of [place] 4.2.7.2.686 Malachi as SHAI?BLEA [phone] [facility] CATALINO 370 [facility] OFFICE [facility] 2021-08-03 2021-08-03 [facility] [id number] Univers 09:20:00 09:20:00 AMY almaguery o f [facility] 2021-07-24 2021-07-24 Refamador PenaZUNI [facility] 1.2.776.153 [id number] Univers 00:00:00 00:00:00 Kehinde [place] 350.1.13.10 i ty [facility] [place] [phone] [facility] 134 [facility] 2021-07-01 2021-07-01 Brennan ChatmanZUNI [facility] 1.2.840.114 [id number] Univers 00:00:00 00:00:00 Wondiful A HEALTH 350.1.13.10 ity of [place] 4.2.7.2.686 Malachi as PROFESSIO [phone] [facility] 044 [facility] ONE 2021-05-30 2021-05-30 Brennan ChatmanZUNI [facility] 1.2.840.114 [id number] Univers 00:00:00 00:00:00 Wondiful A HEALTH 350.1.13.10 ity of [place] 4.2.7.2.686 Malachi as PROFESSIO [phone] [address] ONE 2021-05-28 2021-05-28 Brennan ChatmanZUNI [facility] 1.2.840.114 [id number] Univers 00:00:00 00:00:00 Wondiful A HEALTH 350.1.13.10 ity of [place] 4.2.7.2.686 Malachi as PROFESSIO [phone] Ia margret BEAR 044 [facility] ONE 2021-05-18 2021-05-18 Refill CompaZUNI [facility] 1.2.840.114 [id number] Univers 00:00:00 00:00:00 Wondiful A HEALTH 350.1.13.10 ity of [place] 4.2.7.2.686 Malachi as PROFESSIO [phone] [facility] 044 [facility] ONE 2021-04-30 2021-04-30 Case CompaZUNI [facility] 1.2.840.114 [id number] Univers 00:00:00 00:00:00 Management Wondiful A HEALTH 350.1.13.10 ity of [place] 4.2.7.2.686 Malachi as SHAI?BLEA [phone] Ia margret SCOTT [address] [facility] 2021-04-27 2021-04-27 Outpatient R BECKY [facility] [id number] [facility] 09:30:00 10:19:12 KEHINDE banda [facility] 2021-04-27 2021-04-27 Office BeckyZUNI [facility] 1.2.336.988 [id number] Univers 09:21:25 10:19:12 Visit Kehinde BHAVESH 350.1.13.10 i ty [facility] [place] [phone] Ia margret NAL 134 [facility] 2021-04-22 2021-04-22 Surety Bond Agent Donn Henao Lab Main [facility] 1.2.8 40.114 [id number] Univers 08:01:15 08:16:15 Visit PowerThien LILYCHERELLE 350.1.13. 10 ity [facility] [place] [phone] Ia margret BEAR 353 [facility] 2021-04-22 2021-04-22 Outpatient R COMPA [facility] [id number] Univers 08:15:00 08:15:00 WONDIFUL ity o f [facility] 2021-04-07 2021-04-07 Telephone Meka [facility] 1.2.840.114 [id number] Univers 00:00:00 00:00:00 Amy HEALTH 350.1.13.10 i ty of [place] 4.2.7.2.686 Malachi as SHAI?BLEA [phone] Ia margret SCOTT 044 [place] [facility] 2021-04-03 2021-04-03 Urgent MekaZUNI [facility] 1.2.840.114 [id number] Univers 09:12:20 09:32:20 Care Amy HEALTH 350.1.13.10 i ty of [place] 4.2.7.2.686 Malachi as SHAI?BLEA [phone] Ia margret SCOTT [address] [place] [facility] 2021-04-03 2021-04-03 Outpatient R MEKA [facility] [id number] Univers 09:20:00 09:20:00 AMY ity o f [facility] 2021-03-31 2021-03-31 Refill [facility]ZUNI [facility] 1.2.840.114 [id number] Univers 00:00:00 00:00:00 Wondiful A HEALTH 350.1.13.10 ity of [place] 4.2.7.2.686 Malachi as SHAI?BLEA [phone] Ia margret SCOTT [address] [place] [address] MEDICAL OFFICE [facility] 2021-03-19 2021-03-19 Office [facility]ZUNI [facility] 1.2.840.114 [id number] Univers 08:47:06 09:26:20 Visit Wondiful A HEALTH 350.1.13.10 ity of [place] 4.2.7.2.686 Malachi as SHAI?BLEA [phone] Ia margret SCOTT [address] [place] [address] MEDICAL OFFICE [facility] 2021-03-19 2021-03-19 Outpatient R COMPA [facility] [id number] Univers 08:45:00 09:26:20 WONDIFUL ity o f [facility] 2021-03-19 2021-03-19 Outpatient R COMPA [facility] [id number] Univers 08:45:00 08:45:00 WONDIFUL ity o f [facility] 2021-03-15 2021-03-15 Urgent [facility] 1.2.840.114 [id number] Univers 15:40:55 16:17:23 Care [facility] 350.1.13.10 it y of [place] 4.2.7.2.686 Malachi as Shai?Blea [phone] Ia dical nataliia [address] [place] [facility] Office [facility] 2021-03-15 2021-03-15 Outpatient R KULDIP [facility] [id number] Univers 15:40:00 15:40:00 CANDICE ity [facility] 2021-03-15 2021-03-15 Orders Doctor ZO 1.2.840.114 [id number] Univers 00:00:00 00:00:00 Only Unassigned, LILLY 350.1.13.10 ity of [place] [facility] 4.2.7.2.686 Malachi as [phone] [address] 2021-02-26 2021-02-26 Telephone Compa [facility] 1.2.840.114 [id number] Univers 00:00:00 00:00:00 WonTagaPet A Health 350.1.13.10 ity of [place] 4.2.7.2.686 Malachi as Shai?Blea [phone] Ia dicanneliese scott 044 [facility] Office [facility] 2021-02-19 2021-02-19 Imm/Inj Nurse, Adc Pob Immunization [facility] 1.2.840.114 [id number] Univers 10:30:27 10:35:04 Visit Lalo Savage 350.1.13 .10 ity of [place] [phone] Ia dical nal 421 [facility] 2021-02-19 2021-02-19 Outpatient R JANETTE [facility] [id number] Univers 10:30:00 10:30:00 LALO banda [facility] 2021-01-24 2021-01-24 Brennan Pena [facility] 1.2.423.650 [id number] Univers 00:00:00 00:00:00 Kehinde Ospina 350.1.13.10 i ty of [place].2.[place] Profess[place] [phone] Ia dic[address] 2021-01-13 2021-01-13 Outpatient R COMPA, [facility] [id number] Univers 00:00:00 00:00:00 WONDIFUL ity o f [facility] 2020-12-16 2020-12-16 Outpatient R COMPA, [facility] [id number] Univers 14:00:00 14:00:00 WONDIFUL ity o f [facility] 2020-11-25 2020-11-25 Outpatient R INEZ, [facility] [id number] Univers 08:00:00 08:00:00 BILAL [facility] 2020-11-08 2020-11-08 Outpatient R ARJUN, [facility] [id number] Univers 12:20:00 12:20:00 CHERELLE [facility] 2020-09-22 2020-09-22 Outpatient R BECKY, [facility] [id number] Univers 14:30:00 14:30:00 KEHINDE [facility] 2020-09-11 2020-09-11 Outpatient R JAZMIN, [facility] [id number] Univers 11:00:00 11:00:00 TRAVON [facility] 2020-08-22 2020-08-22 Telephone [facility] 1.2.840.114 [id number] 00:00:00 00:00:00 Wondiful A Health 350.1.13.10 [place] 4.2.7.2.686 Professio [phone] [address] One 2020-08-17 2020-08-17 Refill [facility] 1.2.840.114 [id number] 00:00:00 00:00:00 Wondiful A Health 350.1.13.10 [place] 4.2.7.2.686 Professio [phone] [address] One 2020-07-31 2020-07-31 Telephone [facility] 1.2.840.114 [id number] 00:00:00 00:00:00 Wondiful A Health 350.1.13.10 [place] 4.2.7.2.686 Professio [phone] [address] One 2020-07-22 2020-07-22 Case [facility] 1.2.840.114 [id number] 00:00:00 00:00:00 Management Wondiful A Health 350.1.13.10 [place] 4.2.7.2.686 Professio [phone] [place] [address] Office [facility] One 2020-07-14 2020-07-14 Outpatient Alexander COMPA [facility] [id number] Univers 10:00:00 10:00:00 WONDIFUL ity o f [facility] 2020-07-14 2020-07-14 Surety Bond Agent Donn Henao [facility] 1.2.840.114 [id number] 09:23:27 09:38:27 Visit Lab Main [place] 350.1.13.10 [place] 4.2.7.2.[address] Professio [phone] [address] 2020-07-03 2020-07-03 Outpatient Alexander MCMAHON [facility] [id number] Univers 13:30:00 13:30:00 [facility] 2020-06-12 2020-06-12 Outpatient Alexander [facility] [id number] Univers 16:40:00 16:40:00 [facility] 2020-06-10 2020-06-10 Office [facility] 1.2.840.114 [id number] 07:57:28 08:37:01 Visit Wondiful A Health 350.1.13.10 [place] 4.2.7.2.686 Professio [phone] [place] [address] Office [facility] One 2020-06-10 2020-06-10 Outpatient Alexander CHATMAN [facility] [id number] Univers 08:00:00 08:00:00 WONDIFUL ity o f [facility] 2020-05-27 2020-05-27 Outpatient Alexander WILEY [facility] [id number] Univers 09:15:00 09:15:00 [facility] 2020-04-22 2020-04-22 Outpatient Alexander WILEY [facility] [id number] Univers 08:00:00 08:00:00 [facility] 2020-04-16 2020-04-16 Outpatient R SAVANNAH, [facility] [id number] Univers 17:15:00 17:15:00 ATTENDING ity of [facility] 2020-03-15 2020-03-15 Outpatient R LOVE, [facility] [id number] Univers 14:20:00 14:20:00 DILLON ity [facility] 2020-03-04 2020-03-04 Outpatient R INEZ, [facility] [id number] Univers 08:00:00 08:00:00 BILAL ity of [facility] 2020-02-27 2020-02-27 Outpatient R ANGELES, [facility] [id number] Univers 14:30:00 14:30:00 LATESHA ity [facility] 2020-02-25 2020-02-25 Outpatient R COMPA, [facility] [id number] Univers 08:10:00 08:10:00 WONDIFUL ity o f [facility] 2020-02-22 2020-02-22 Outpatient R COMPA, [facility] [id number] Univers 08:30:00 08:30:00 WONDIFUL ity o f [facility] 2020-02-11 2020-02-11 Outpatient R [facility] [id number] Univers 08:45:00 08:45:00 ity of [facility] 2020-01-31 2020-01-31 Outpatient R INEZ [facility] [id number] Univers 08:30:00 08:30:00 BILAL ity of [facility] 2020-01-31 2020-01-31 Outpatient R INEZ [facility] [id number] Univers 08:00:00 08:00:00 BILAL ity [facility] 2020-01-25 2020-01-25 Outpatient R [facility] [id number] Univers 16:40:00 16:40:00 ity of [facility] 2020-01-17 2020-01-17 Outpatient R INEZ [facility] [id number] Univers 09:00:00 09:00:00 BILAL ity of [facility] 2020-01-15 2020-01-15 [facility] [id number] Univers 08:30:00 08:30:00 BILAL ity of [facility] 2020-01-11 2020-01-11 Outpatient R COMPA [facility] [id number] Univers 09:30:00 09:30:00 WONDIFUL ity o f [facility] 2020-01-10 2020-01-10 Outpatient R INEZ, [facility] [id number] Univers 13:00:00 13:00:00 BILAL ity of [facility] 2019-12-31 2019-12-31 Outpatient R BRENT, [facility] [id number] Univers 14:15:00 14:15:00 JAMISON ity of [facility] 2019-12-24 2019-12-24 Outpatient R [facility] [id number] Univers 09:00:00 09:00:00 ity of [facility] 2019-12-14 2019-12-14 Outpatient R COMPA [facility] [id number] Univers 08:30:00 08:30:00 WONDIFUL ity o f [facility] 2019-12-11 2019-12-11 Outpatient R COMPA [facility] [id number] Univers 16:00:00 16:00:00 WONDIFUL ity o f [facility] 2019-11-21 2019-11-21 Outpatient R ENRIQUETA [facility] [id number] Univers 13:45:00 13:45:00 SONDRA Kate ity o f [facility] 2019-10-02 2019-10-02 Outpatient R COMPA [facility] [id number] Univers 08:00:00 08:00:00 WONDIFUL ity o f [facility] 2019-09-11 2019-09-11 Outpatient R COMPA [facility] [id number] Univers 15:00:00 15:00:00 WONDIFUL ity o f [facility] 2019-07-02 2019-07-02 Outpatient R COMPA [facility] [id number] Univers 14:00:00 14:22:41 WONDIFUL ity o f [facility] 2018-09-01 2018-09-01 Juno FITZGERALD [facility] Orthopedics [id number] [place] 09:30:00 09:30:00 t; GALINDO FITZGERALD M.D. at [place] page Villalobos M.D. 2018-08-25 2018-08-25 [facility] [id number] [place] 09:15:00 09:15:00 t; GALINDO FITZGERALD M.D. Physici EDDIE, ans M.D. 2018-03-24 2018-03-24 JEANNE [facility] [id number] [place] 09:00:00 09:00:00 t; GALINDO FITZGERALD M.D. at [place] page Villalobos M.D. 2016-05-31 2016-05-31 Juno [facility] [id number] [place] 11:00:00 11:00:00 t; [facility] Phy sici MICHELLE, M.D. ans M.D. Results Test Description Test Time Test Comments Results Result Comments Source POCT URINALYSIS W SPECIFIC GRAVITY 2022-10-06 16:59:00 Test Item Value Reference Range Interpretation Comme nts POCT U SP GRAV (test code = 3255) 1.015 mg/dl 1.005-1.025 POCT PH U (test code = 3254) 5 mg/dl 5-8 POCT U LEUK EST (test code = 3263) ++ Negative - Negative POCT U NIT (test code = 3262) neg Negative - Negative POCT U PROT (test code = 3259) neg Negative - Negative POCT U GLU (test code = 3256) normal Negative - Negative POCT U KETONE (test code = 3258) neg Negative - Negative POCT U UROBILI (test code = 3260) 4 mg/dl 0.2-1 A POCT U BILI (test code = 3261) neg Negative - Negative POCT U BLD (test code = 3257) neg Negative - Negative POCT U COLOR (test code = 3266) yolande POCT U APPEAR (test code = 3267) cloudy Lab Interpretation (test code = 10585-2) Abnormal [facility] URINALYSIS W SPECIFIC [id number] 14:35:00 Test Item Value Reference Range Interpretation Comments POCT U SP GRAV (test code = 1.010 mg/dl 1.005-1.025 3255) POCT PH U (test code = 3254) 5 mg/dl 5-8 POCT U LEUK EST (test code = + Negative - Negative 3263) POCT U NIT (test code = 3262) neg Negative - Negative POCT U PROT (test code = neg Negative - Negative 3259) POCT U GLU (test code = 3256) norm Negative - Negative POCT U KETONE (test code = neg Negative - Negative 3258) POCT U UROBILI (test code = neg 0.2-1 3260) POCT U BILI (test code = neg Negative - Negative 3261) POCT U BLD (test code = 3257) trace Negative - Negative POCT U COLOR (test code = yellow 3266) POCT U APPEAR (test code = cloudy 3267) Lab Interpretation (test code Abnormal = 44062-3) [facility] URINALYSIS W/O SPECIFIC [id number] 15:01:00 Test Item Value Reference Range Interpretation Comments POCT PH U (test code = 3254) 5 mg/dl 5-8 POCT U LEUK EST (test code = 1 3263) POCT U NIT (test code = 3262) negative Negative - Negative POCT U PROT (test code = 3259) negative Negative - Negative POCT U GLU (test code = 3256) normal Negative - Negative POCT U KETONE (test code = 3258) negative Negative - Negative POCT U BLD (test code = 3257) negative Negative - Negative [facility] URINALYSIS W/O SPECIFIC [id number] 15:01:00 Test Item Value Reference Range Interpretation Comments POCT PH U (test code = 3254) 5 mg/dl 5-8 POCT U LEUK EST (test code = 1 3263) POCT U NIT (test code = 3262) negative Negative - Negative POCT U PROT (test code = 3259) negative Negative - Negative POCT U GLU (test code = 3256) normal Negative - Negative POCT U KETONE (test code = 3258) negative Negative - Negative POCT U BLD (test code = 3257) negative Negative - Negative [facility] URINALYSIS W/O SPECIFIC [id number] 14:55:00 Test Item Value Reference Range Interpretation Comments POCT PH U (test code 6 mg/dl 5-8 = 3254) POCT U LEUK EST trace Negative - Negative (test code = 3263) POCT U NIT (test positive Negative - Negative code = 3262) POCT U PROT (test trace Negative - Negative code = 3259) POCT U GLU (test negative Negative - Negative code = 3256) POCT U KETONE (test negative Negative - Negative code = 3258) POCT U BLD (test negative Negative - Negative code = 3257) ROSALVA (test code = Per order PVR by ROSALVA) bladder scan = ?156 ml. Results reported to provider. [facility] URINALYSIS W/O SPECIFIC [id number] 14:55:00 Test Item Value Reference Range Interpretation Comments POCT PH U (test code 6 mg/dl 5-8 = 3254) POCT U LEUK EST trace Negative - Negative (test code = 3263) POCT U NIT (test positive Negative - Negative code = 3262) POCT U PROT (test trace Negative - Negative code = 3259) POCT U GLU (test negative Negative - Negative code = 3256) POCT U KETONE (test negative Negative - Negative code = 3258) POCT U BLD (test negative Negative - Negative code = 3257) ROSALVA (test code = Per order PVR by ROSALVA) bladder scan = ?156 ml. Results reported to provider. [facility] URINALYSIS W/O SPECIFIC [id number] 14:55:00 Test Item Value Reference Range Interpretation Comments POCT PH U (test code 6 mg/dl 5-8 = 3254) POCT U LEUK EST trace Negative - Negative (test code = 3263) POCT U NIT (test positive Negative - Negative code = 3262) POCT U PROT (test trace Negative - Negative code = 3259) POCT U GLU (test negative Negative - Negative code = 3256) POCT U KETONE (test negative Negative - Negative code = 3258) POCT U BLD (test negative Negative - Negative code = 3257) ROSALVA (test code = Per order PVR by ROSALVA) bladder scan = ?156 ml. Results reported to provider. [facility] URINALYSIS W/O SPECIFIC [id number] 14:55:00 Test Item Value Reference Range Interpretation Comments POCT PH U (test code 6 mg/dl 5-8 = 3254) POCT U LEUK EST trace Negative - Negative (test code = 3263) POCT U NIT (test positive Negative - Negative code = 3262) POCT U PROT (test trace Negative - Negative code = 3259) POCT U GLU (test negative Negative - Negative code = 3256) POCT U KETONE (test negative Negative - Negative code = 3258) POCT U BLD (test negative Negative - Negative code = 3257) ROSALVA (test code = Per order PVR by ROSALVA) bladder scan = ?156 ml. Results reported to provider. [facility] GLUCOSE (AUTOMATED)2022-03-11 12:49:19 Test Item Value Reference Range Interpretation Comments POCT GLU (test code = 3657053372) 90 mg/dL 70-110 Lab Interpretation (test code = Normal 27329-0) [facility] GLUCOSE (AUTOMATED)2022-03-11 12:49:19 Test Item Value Reference Range Interpretation Comments POCT GLU (test code = 4466930807) 90 mg/dL 70-110 Lab Interpretation (test code = Normal 42189-4) [facility] [id number] 13:56:00 Test Item Value Reference Range Interpretation [...] code = LEUU) DRUGS OF ABUSE SCREEN [id number] 13:56:00 Test Item Value Reference Range Interpretation [...] NEGATIVE SCcutoff <300 NG/ML [place]) RULE OUT [place] [id number] 10:28:00 Test Item Value Reference Range Interpretation [...] results may stephanie yby method. BASIC METABOLIC [id number] 10:24:00 Test Item Value Reference Range Interpretation [...] CA) 9.0 MG/DL 8.5-10.1 N HEPATIC FUNCTION [id number] 10:24:00 Test Item Value Reference Range Interpretation [...] 78 Unit/L 45-117 N code = ALKP) [id number] 10:24:00 Test Item Value Reference Range Interpretation Comments LIPASE (test code = LIP) 93 Unit/L 114-286 L URINALYSIS [id number] 10:11:00 Test Item Value Reference Range Interpretation [...] code = LEUU) DRUGS OF ABUSE SCREEN [id number] 10:11:00 Test Item Value Reference Range Interpretation [...] = SCcutoff <300 NG/ML [place]) CBC W/AUTO [id number] 10:07:00 Test Item Value Reference Range Interpretation [...] DIFF/SCN CRITERIA MDIFF) - XR CHEST 1 [id number] 09:28:00 Name: NINA NEELY [place] : 1955 Age/S: 63 / F [address] Unit #: [id number] Loc: [place] [address] Phys: Nash Osei MD Acct: [id number] Dis Date: Status: REG ER PHONE #: [phone] Exam Date: 07/12/2018919 FAX #: Reason: cp EXAMS: CPT: [id number] XR CHEST 1 V 41822 Fluoro Time: DAP (Gy m2): Air Kerma (mGy): Location: U19. CHEST, FRONTAL VIEW HISTORY: cpCOMPARISON: Chest x-ray 08/16/16. FINDINGS: The lungs are clear without consolidation. No pleural effusion or pneumothorax. The heart size is normal. Degenerative changes affect the thoracic spine. Several wires overlie the chest. IMPRESSION: No evidence of acute cardiopulmonary disease. at 0928 Reported and signed by: Dinh Baxter M.D. CC: Nash Osei MD PAGE 1 Signed Report Name: NINA NEELY [place] : 1955 Age/S: 63 / F [address] Unit #: [id number] Loc: [place] [address] Phys:Nash Osei MD Acct: [id number] Dis Date: Status: REG ER PHONE #: [phone] Exam Date: 07/12/2018919 FAX #: Reason: cp EXAMS: CPT: [id number] XR CHEST 1 V 45782 Fluoro Time: DAP (Gy m2): Air Kerma (mGy): (Continued) Technologist: Breanna Kapadia, RT(R); Aleks Yan RT(R)(MR) Trntxb Date/Time: 07/12/2018 (927) [email or web address] Orig Print D/T: S: 07/12/2018 (5296) PAGE 2 Signed Report[U] XRAY KNEE 4 OR MORE VWS LEFT [id number] 2018-03-24 09:05:00Images acquired, not reported on this accession number.[facility]
--- NOTE | 2023-02-09 12:48 | ER ---
Nurse's Notes [facility] Name: Nanci Barros Age: 67 yrs Sex: Female : 1955 Arrival Date: 02/09/2023 Time: 11:00 Bed 11 Private MD: Diagnosis: Acute upper respiratory infection, unspecified Presentation: 02/09 11:17 Chief complaint: Patient states: Headache, body aches, chills, nasal congestion, nausea ph and cough that started last night. Coronavirus screen: Vaccine status: Patient reports receiving the 2nd dose of the covid vaccine. Ebola Screen: No symptoms or risks identified at this time. 11:17 Method Of Arrival: Ambulatory ph 11:19 Initial Sepsis Screen: Does the patient meet any 2 criteria? No. Patient's initial ph sepsis screen is negative. Does the patient have a suspected source of infection? No. Patient's initial sepsis screen is negative. Risk Assessment: Do you want to hurt yourself or someone else? Patient reports no desire to harm self or others. Onset of symptoms was February 09, 2023. 11:19 Acuity: GET 4 ph Historical: - Allergies: 11:19 PENICILLINS; ph - PMHx: 11:19 acid reflux; Diabetes - NIDDM; Hypertension; psoriasis; ph - Immunization history:: Adult Immunizations up to date. - Social history:: Smoking status: Patient denies any tobacco usage or history of. Screenin:23 [facility] ED Fall Risk Assessment (Adult) Score/Fall Risk Level 0 - 2 = Low Risk ll1 Oriented to surroundings, Maintained a safe environment, Educated pt \T\ family on fall prevention, incl call for assistance when getting out of bed, Hourly rounding (assess needs \T\ fall precautionary measures) done. Abuse screen: Denies threats or abuse. Nutritional screening: No deficits noted. Tuberculosis screening: No symptoms or risk factors identified. Assessment: 11:22 General: Appears in no apparent distress. comfortable, well groomed, Behavior is calm, ph cooperative, appropriate for age, Reports chills for feeling ill for 12-24 hours, Denies fever. Pain: Complains of pain in headache and body aches. Neuro: Level of Consciousness is awake, alert, obeys commands, Oriented to person, place, time, situation. Cardiovascular: Capillary refill < 3 seconds in bilateral fingers Patient's skin is warm and dry. Respiratory: Reports cough that is non-productive, Airway is patent Respiratory effort is even, unlabored, Respiratory pattern is regular, symmetrical. GI: Reports nausea, Patient currently denies abdominal pain, diarrhea, vomiting. EENT: Reports nasal congestion nasal discharge. 11:28 Reassessment: No changes from previously documented assessment. Patient and/or family ll1 updated on plan of care and expected duration. Pain level reassessed. 13:02 Reassessment: No changes from previously documented assessment. Patient and/or family ll1 updated on plan of care and expected duration. Pain level reassessed. Patient is alert, oriented x 3, equal unlabored respirations, skin warm/dry/pink. Vital Signs: 11:17 BP 116 / 75; Pulse 87; Resp 18; Temp 97.3; Pulse Ox 99% on R/A; Weight 102.97 kg; ph Height 5 ft. 6 in. ; 13:02 BP 132 / 69; Pulse 77; Resp 17; Pulse Ox 99% ; Pain 0/10; ll1 11:17 Body Mass Index 36.64 (102.97 kg, 167.64 cm) ph 13:02 Pain Scale: Adult ll1 ED Course: 11:03 Patient arrived in ED. im 11:11 Traci Jeter PA-C is PHCP. sb4 11:11 Cash Malik MD is Attending Physician. sb4 11:19 Triage completed. ph 11:19 Arm band placed on Patient placed in an exam room. ph 11:22 Kathy Uriostegui, RN is Primary Nurse. ph 11:23 Patient has correct armband on for positive identification. Bed in low position. Call ll1 light in reach. Side rails up X 1. Cardiac monitoring not applicable on this patient. 11:28 COVID-19 SARS RT PCR Sent. ds4 11:28 Flu Sent. ds4 11:28 Strep Sent. ds4 13:02 Provided Education on: n/a. ll1 13:02 No provider procedures requiring assistance completed. Patient did not have IV access ll1 during this emergency room visit. Administered Medications: No medications were administered Medication: 11:23 VIS not applicable for this client. ll1 Outcome: 12:48 Discharge ordered by . sb4 13:02 Discharged to home ambulatory, ll1 13:02 Condition: stable 13:02 Discharge instructions given to patient, Instructed on discharge instructions, follow up and referral plans. medication usage, Demonstrated understanding of instructions, follow-up care, medications, Prescriptions given X 1, 13:02 Patient left the ED. ll1 Signatures: Wolfgang Freeman ds4 Kathy Uriostegui, RN RN Ji Benavides RN RN ll1 Traci Jeter, PA-C PA-C sb4 Khushboo Stephens
--- NOTE | 2023-02-09 12:48 | EDPHYS ---
Physician Documentation [facility] Name: Nanci Barros Age: 67 yrs Sex: Female : 1955 Arrival Date: 02/09/2023 Time: 11:00 Bed 11 Private MD: ED Physician Cash Malik HPI: 02/09 11:24 This 67 yrs old Black Female presents to ER via Ambulatory with complaints of Flu sb4 Symptoms. 11:26 Onset: The symptoms/episode began/occurred yesterday. Associated signs and symptoms: sb4 Pertinent positives: congestion, cough, headache, sore throat. Modifying factors: The patient symptoms are alleviated by nothing, the patient symptoms are aggravated by nothing. The patient has not experienced similar symptoms in the past, but family has similar symptoms. The patient has not recently seen a physician. Historical: - Allergies: 11:19 PENICILLINS; ph - PMHx: 11:19 acid reflux; Diabetes - NIDDM; Hypertension; psoriasis; ph - Immunization history:: Adult Immunizations up to date. - Social history:: Smoking status: Patient denies any tobacco usage or history of. ROS: 11:26 Cardiovascular: Negative for chest pain, palpitations, and edema, sb4 11:26 Constitutional: Positive for body aches, chills, 11:26 ENT: Positive for sore throat, 11:26 Respiratory: Positive for cough, 11:26 Neuro: Positive for headache, 11:26 All other systems are negative, Exam: 11:26 Constitutional: This is a well developed, well nourished patient who is awake, alert, sb4 and in no acute distress. Head/Face: Normocephalic, atraumatic. Eyes: Extra-ocular motions intact. Periorbital areas with no swelling, redness, or edema. Cardiovascular: Regular rate and rhythm with a normal S1 and S2. Respiratory: Lungs have equal breath sounds bilaterally, clear to auscultation and percussion. No rales, rhonchi or wheezes noted. No increased work of breathing, no retractions or nasal flaring. Abdomen/GI: Soft, non-tender, no distension. Skin: Warm, dry with normal turgor. Normal color with no rashes, no lesions, and no evidence of cellulitis. MS/ Extremity: Pulses equal, no cyanosis. Neurovascular intact. Full, normal range of motion. Neuro: Awake and alert, GCS 15, oriented to person, place, time, and situation. Motor strength 5/5 in all extremities. Sensory grossly intact. 11:26 ENT: Mouth: Oral mucosa: dry, Posterior pharynx: Airway: normal, no evidence of obstruction, patent, Tonsils: are normal in appearance, no enlargement, no erythema, no exudate, no ulcerations, Vital Signs: 11:17 BP 116 / 75; Pulse 87; Resp 18; Temp 97.3; Pulse Ox 99% on R/A; Weight 102.97 kg; ph Height 5 ft. 6 in. ; 13:02 BP 132 / 69; Pulse 77; Resp 17; Pulse Ox 99% ; Pain 0/10; ll1 11:17 Body Mass Index 36.64 (102.97 kg, 167.64 cm) ph 13:02 Pain Scale: Adult ll1 MDM: 11:20 Patient medically screened. sb4 11:26 Differential diagnosis: viral Infection, bacterial infection, URI, bronchitis. sb4 12:47 Data reviewed: vital signs, nurses notes, lab test result(s), and as a result, I will sb4 discharge patient. Care significantly affected by the following chronic conditions: Diabetes, Hypertension. Counseling: I had a detailed discussion with the patient and/or guardian regarding the historical points, exam findings, and any diagnostic results supporting the discharge/admit diagnosis, lab results, to return to the emergency department if symptoms worsen or persist or if there are any questions or concerns that arise at home. 02/09 11:24 Order name: COVID-19 SARS RT PCR; Complete Time: 12:32 sb4 02/09 11:24 Order name: Flu; Complete Time: 12:11 sb4 02/09 11:24 Order name: Strep sb4 02/09 11:45 Order name: Glucose, Ancillary Testing; Complete Time: 11:49 EDFL 02/09 12:05 Order name: Throat Culture EDFL 02/09 11:24 Order name: Accucheck Blood Glucose; Complete Time: 11:28 sb4 Administered Medications: No medications were administered Disposition: 14:12 Co-signature as Attending Physician, Cash Malik MD I reviewed the patient's care rt provided by the Advanced Practice Provider and agree with the diagnosis and treatment plan. Disposition Summary: 02/09/23 12:48 Discharge Ordered Notes: Location: Home sb4 Problem: new sb4 Symptoms: are unchanged sb4 Condition: Stable sb4 Diagnosis - Acute upper respiratory infection, unspecified sb4 Followup: sb4 - With: Private Physician - When: As needed - Reason: Recheck today's complaints, Continuance of care, Re-evaluation by your physician Discharge Instructions: - Discharge Summary Sheet sb4 - Viral Respiratory Infection sb4 - Upper Respiratory Infection, Adult, [id number] sb4 Forms: - Work release form ll1 - Medication Reconciliation Form sb4 - Thank You Letter sb4 - Antibiotic Education sb4 - Prescription Opioid Use sb4 - Patient Portal Instructions sb4 - Leadership Thank You Letter sb4 Prescriptions: - Medrol ([place]ot[place]) 4 mg Oral Tablets, Dose Pack - take 1 tablet ORAL route as directed - follow package instructions; 1 packet; sb4 Refills: 0, Product Selection Permitted Signatures: Dispatcher [employer] Kathy Cobian RN RN ph Brown, Sophia, PA-C PA-C sb4 Cash Malik MD MD rt
[2023-02-09 13:27] VITALS: TEMP 97.3; O2SAT 99
[2023-02-09 13:29] VITALS: BP 132/69
== END 2023-02-09 13:02 | disposition home or self-care (01) ==
LOC: ER 11:00
DX: J06.9 Acute upper respiratory infection, unspecified (principal); E11.9 Type 2 diabetes mellitus without complications; I10 Essential (primary) hypertension; Z20.822 Contact with and (suspected) exposure to COVID-19; Z88.0 Allergy status to penicillin
CPT/HCPCS: 82947; 87070; 87081; 87635; 87804

== ENCOUNTER 2024-01-05 03:45 | Emergency (ER) | payer BC ==
[2024-01-05] MEDS ORDERED: KETOROLAC 30 MG/ML INJ ONE (04:55)
[2024-01-05] MEDS ORDERED: predniSONE 20 MG TAB ONE (04:55)
[2024-01-05] MEDS ORDERED: ONDANSETRON 4 MG (ODT) TAB ONE (04:56)
[2024-01-05] MEDS ORDERED: HYDROCODONE/APAP 10/325 TAB ONE (04:56)
--- NOTE | 2024-01-05 06:14 | EDPHYS ---
Physician Documentation [facility] Name: Nanci Barros Age: 68 yrs Sex: Female : 1955 Arrival Date: 01/05/2024 Time: 03:45 Bed 4 Private MD: ED Physician Saul Ventura HPI: 01/04 03:57 This 68 yrs old Black Female presents to ER via Wheelchair with complaints of Foot Pain.sp4 01/05 00:03 68-year-old female presents with acute left foot pain redness swelling typical of her sp4 gout attack. Historical: - Allergies: 01/04 03:57 PENICILLINS; vc1 - PMHx: 03:57 acid reflux; Diabetes - NIDDM; Hypertension; psoriasis; Gout; vc1 - PSHx: 03:57 Cholecystectomy; vc1 - Immunization history:: Client reports receiving the 2nd dose of the Covid vaccine. - Infectious Disease History:: Denies. - Social history:: Smoking status: Patient denies any tobacco usage or history of. - Family history:: not pertinent. ROS: 01/05 00:03 Constitutional: Negative for fever, chills, and weight loss, Eyes: Negative for injury, sp4 pain, redness, and discharge, ENT: Negative for injury, pain, and discharge, Neck: Negative for injury, pain, and swelling, Cardiovascular: Negative for chest pain, palpitations, and edema, Respiratory: Negative for shortness of breath, cough, wheezing, and pleuritic chest pain, Abdomen/GI: Negative for abdominal pain, nausea, vomiting, diarrhea, and constipation, Back: Negative for injury and pain, : Negative for injury, bleeding, discharge, and swelling, MS/Extremity: Positive for left foot redness, pain , swelling and head left great toe metatarsal phalangeal joint and dorsal left foot Skin: Negative for injury, rash, and discoloration, Neuro: Negative for headache, weakness, numbness, tingling, and seizure, All other systems are negative, Exam: 00:03 Constitutional: This is a well developed, well nourished patient who is awake, alert, sp4 and in no acute distress. Head/Face: Normocephalic, atraumatic. Eyes: Pupils equal round and reactive to light, extra-ocular motions intact. Lids and lashes normal. Conjunctiva and sclera are not injected. Cornea within normal limits. Periorbital areas with no swelling, redness, or edema. ENT: Nares patent. No nasal discharge, no septal abnormalities noted. Tympanic membranes are normal and external auditory canals are clear. Oropharynx with no redness, swelling, or masses, exudates, or evidence of obstruction, uvula midline. Mucous membranes moist. Neck: Trachea midline, no thyromegaly or masses palpated, and no cervical lymphadenopathy. Supple, full range of motion without nuchal rigidity, or vertebral point tenderness. Chest/axilla: Normal chest wall appearance and motion. Nontender with no deformity. No lesions are appreciated. Cardiovascular: Regular rate and rhythm with a normal S1 and S2. No gallops, murmurs, or rubs. Normal PMI, no JVD. No pulse deficits. Respiratory: Lungs have equal breath sounds bilaterally, clear to auscultation and percussion. No rales, rhonchi or wheezes noted. No increased work of breathing, no retractions or nasal flaring. Abdomen/GI: Soft, with normal bowel sounds. No distension or tympany. No guarding or rebound. No evidence of tenderness throughout. Back: No spinal tenderness. No costovertebral tenderness. Skin: Warm, dry with normal turgor. Normal color with no rashes, no lesions, and no evidence of cellulitis. MS/ Extremity: Pulses equal, no cyanosis. Neurovascular intact. Full, normal range of motion. Positive left foot pain redness swelling tenderness and signs of inflammatory arthropathy Neuro: Awake and alert, GCS 15, oriented to person, place, time, and situation. Cranial nerves II-XII grossly intact. Motor strength 5/5 in all extremities. Sensory grossly intact. Psych: Awake, alert, with orientation to person, place and time. Behavior, mood, and affect are within normal limits Vital Signs: 01/04 03:55 Weight 96.62 kg; Height 5 ft. 6 in. ; Pain 10/10; vc1 04:00 BP 130 / 68; Pulse 82; Resp 16; Temp 98.5; Pulse Ox 100% ; vc1 03:55 Body Mass Index 34.38 (96.62 kg, 167.64 cm) vc1 03:55 Pain Scale: Adult vc1 Allison Coma Score: 01/05 00:03 Eye Response: spontaneous(4). Motor Response: obeys commands(6). Verbal Response: sp4 oriented(5). Total: 15. MDM: 01/04 04:03 Patient medically screened. sp4 01/05 00:03 Differential diagnosis: fracture, sprain, arthritis, gout, cellulitis. Data reviewed: sp4 vital signs, nurses notes, lab test result(s), finger stick glucose. ED course: Patient reported significant improvement in pain after medications. Will prescribe course of prednisone and additionally pain medication. Will advise follow-up with primary MD to restart allopurinol. 01/04 05:00 Order name: Glucose, Ancillary Testing; Complete Time: 06:09 EDMS 01/04 04:03 Order name: Accucheck Blood Glucose; Complete Time: 04:49 sp4 Administered Medications: 01/04 05:08 Drug: [place] PO 10 mg-325 mg 1 tabs PO once Route: PO; rg5 05:08 Drug: Ondansetron PO 4 mg PO once Route: PO; rg5 05:08 Drug: Ketorolac IM 60 mg IM once Route: IM; Site: left gluteus; rg5 05:09 Drug: predniSONE PO 60 mg PO once Route: PO; rg5 Disposition Summary: 01/05/24 06:13 Discharge Ordered Notes: Location: Home sp4 Problem: new sp4 Symptoms: have improved sp4 Condition: Stable sp4 Diagnosis - Idiopathic gout, left ankle and foot sp4 Followup: sp4 - With: Private Physician - When: 7 - 10 days - Reason: Recheck today's complaints Discharge Instructions: - Discharge Summary Sheet sp4 - Gout sp4 Forms: - Prescription Opioid Use sp4 Prescriptions: - acetaminophen-codeine 300-60 mg Oral tablet - take 1 tablet ORAL route every 8 hours PRN pain; 20 tablet; Refills: 0, Product sp4 Selection Permitted - Ibuprofen 800 mg Oral Tablet - take 1 tablet ORAL route every 8 hours As needed take with food; 30 tablet; sp4 Refills: 0, Product Selection Permitted - Prednisone 20 mg Oral tablet - take 2 tablets ORAL route once daily for 10 days; 20 tablet; Refills: 0, sp4 Product Selection Permitted - promethazine 25 mg Oral Tablet - take 1 tablet ORAL route every 6 hours As needed; 20 tablet; Refills: 0, sp4 Product Selection Permitted Signatures: Shayna Dominique, RN RN vc1 Saul Ventura MD MD sp4 Alessandro Jackson, WILMAR RN rg5
--- NOTE | 2024-01-05 06:14 | ER ---
Nurse's Notes [facility] Name: Nanci Barros Age: 68 yrs Sex: Female : 1955 Arrival Date: 01/05/2024 Time: 03:45 Bed 4 Private MD: Diagnosis: Idiopathic gout, left ankle and foot Presentation: 01/04 03:55 Chief complaint: Patient states: Left foot swollen and hurts really bad, started early vc1 yesterday. I think it may be gout. Coronavirus screen: Client denies travel out of the [place] in the last 14 days. At this time, the client does not indicate any symptoms associated with coronavirus-19. Ebola Screen: Patient negative for fever greater than or equal to 101.5 degrees Fahrenheit, and additional compatible Ebola Virus Disease symptoms Patient denies exposure to infectious person. Patient denies travel to an Ebola-affected area in the 21 days before illness onset. No symptoms or risks identified at this time. Initial Sepsis Screen: Does the patient meet any 2 criteria? No. Patient's initial sepsis screen is negative. Does the patient have a suspected source of infection? No. Patient's initial sepsis screen is negative. Risk Assessment: Do you want to hurt yourself or someone else? Patient reports no desire to harm self or others. Onset of symptoms was January 04, 2024. Care prior to arrival: None. Activity prior to arrival: None. Mechanism of Injury: No Mechanism of Injury. Transition of care: patient was not received from another setting of care. 03:55 Method Of Arrival: Wheelchair vc1 03:55 Acuity: GET 4 vc1 Triage Assessment: 03:58 General: Appears in no apparent distress. uncomfortable, obese, well groomed, well vc1 developed, well nourished, Behavior is calm, cooperative, appropriate for age. Pain: Complains of pain in left foot Pain does not radiate. Pain currently is 10 out of 10 on a pain scale. Quality of pain is described as pressure, sharp, Pain began 1 day ago. EENT: No deficits noted. No signs and/or symptoms were reported regarding the EENT system. Neuro: Level of Consciousness is awake, alert, obeys commands, Oriented to person, place, time, situation, Appropriate for age. Cardiovascular:. Respiratory: Airway is patent Respiratory effort is even, unlabored, Respiratory pattern is regular, symmetrical, Breath sounds are clear bilaterally. GI: No deficits noted. No signs and/or symptoms were reported involving the gastrointestinal system. : No deficits noted. No signs and/or symptoms were reported regarding the genitourinary system. Derm: Skin is intact, is healthy with good turgor, Skin is dry, Skin is normal, Skin temperature is warm. Musculoskeletal: Reports pain in left foot Pain is 10 out of 10 on a pain scale. Historical: - Allergies: 03:57 PENICILLINS; vc1 - PMHx: 03:57 acid reflux; Diabetes - NIDDM; Hypertension; psoriasis; Gout; vc1 - PSHx: 03:57 Cholecystectomy; vc1 - Immunization history:: Client reports receiving the 2nd dose of the Covid vaccine. - Infectious Disease History:: Denies. - Social history:: Smoking status: Patient denies any tobacco usage or history of. - Family history:: not pertinent. Screenin:00 [facility] ED Fall Risk Assessment (Adult) History of falling in the last 3 months, vc1 including since admission No falls in past 3 months (0 pts) Confusion or Disorientation No (0 pts) Intoxicated or Sedated No (0 pts) Impaired Gait Yes (1 pt) Mobility Assist Device Used No (0 pt) Altered Elimination No (0 pt) Score/Fall Risk Level 0 - 2 = Low Risk Oriented to surroundings, Maintained a safe environment, Educated pt \T\ family on fall prevention, incl call for assistance when getting out of bed. Abuse screen: Denies threats or abuse. Nutritional screening: No deficits noted. Tuberculosis screening: No symptoms or risk factors identified. Assessment: 06:36 Reassessment: Patient appears in no apparent distress at this time. Patient and/or jb4 family updated on plan of care and expected duration. Pain level reassessed. Patient is alert, oriented x 3, equal unlabored respirations, skin warm/dry/pink. Vital Signs: 03:55 Weight 96.62 kg; Height 5 ft. 6 in. ; Pain 10/10; vc1 04:00 BP 130 / 68; Pulse 82; Resp 16; Temp 98.5; Pulse Ox 100% ; vc1 03:55 Body Mass Index 34.38 (96.62 kg, 167.64 cm) vc1 03:55 Pain Scale: Adult vc1 Allison Coma Score: 08/16 00:03 Eye Response: spontaneous(4). Motor Response: obeys commands(6). Verbal Response: sp4 oriented(5). Total: 15. ED Course: 01/04 03:49 Patient arrived in ED. jj6 03:57 Triage completed. vc1 03:57 Saul Ventura MD is Attending Physician. sp4 03:58 Arm band placed on right wrist. vc1 04:45 Alessandro Jackson, RN is Primary Nurse. rg5 06:36 Patient has correct armband on for positive identification. Bed in low position. Call jb4 light in reach. Side rails up X 1. Provided Education on: discharge instructions.. 06:36 No provider procedures requiring assistance completed. Patient did not have IV access jb4 during this emergency room visit. Administered Medications: 05:08 Drug: [place] PO 10 mg-325 mg 1 tabs PO once Route: PO; rg5 05:08 Drug: Ondansetron PO 4 mg PO once Route: PO; rg5 05:08 Drug: Ketorolac IM 60 mg IM once Route: IM; Site: left gluteus; rg5 05:09 Drug: predniSONE PO 60 mg PO once Route: PO; rg5 Medication: 04:00 VIS not applicable for this client. vc1 Outcome: 06:13 Discharge ordered by . sp4 06:36 Discharged to home ambulatory, jb4 06:36 Condition: stable 06:36 Discharge instructions given to patient, family, Instructed on discharge instructions, follow up and referral plans. medication usage, Demonstrated understanding of instructions, follow-up care, medications, Prescriptions given X 4, 06:38 Patient left the ED. jb4 Signatures: Joe Staples RN RN jb4 Emily Williamson jj6 Shayna Dominique RN RN vc1 Saul Ventura MD MD sp4 Alessandro Jackson RN RN rg5
[2024-01-05 07:06] VITALS: BP 130/68; TEMP 98.5; O2SAT 100
== END 2024-01-05 06:38 | disposition home or self-care (01) ==
LOC: ER 03:45
DX: M10.072 Idiopathic gout, left ankle and foot (principal); L40.9 Psoriasis, unspecified; E11.9 Type 2 diabetes mellitus without complications; I10 Essential (primary) hypertension; K21.9 Gastro-esophageal reflux disease without esophagitis; Z88.0 Allergy status to penicillin
CPT/HCPCS: 82947; 96372; 99284; J7512; Q0162

== ENCOUNTER 2024-01-27 08:49 | Emergency (ER) | payer BC ==
[2024-01-27] MEDS ORDERED: NA CHLORIDE 0.9% 1,000 ML ONE (09:07)
--- NOTE | 2024-01-27 09:49 | RAD REPORT ---
EXAM DESCRIPTION: RAD - Chest Single View - 01/27/2024 9:40 am CLINICAL HISTORY: COUGH COMPARISON: Abdomen 1 View (KUB) dated 04/18/2022; Chest Single View dated 09/23/2021; Chest Single Vi ew dated 09/01/2020; Chest Single View dated 03/18/2020 FINDINGS: Lines: None. Lungs: No evidence of edema or pneumonia. Pleural: No significant pleural effusions or pneumothorax. Cardiac: The heart size is within normal limits. Mediastinum: Within normal limits. Bones: No acute fractures. Other: None IMPRESSION: No acute cardiopulmonary disease.
[2024-01-27 09:53] LABS: Absolute Eosinophils 0.1 K/uL (0-0.5); Absolute Lymphocytes (CBC) 1.2 K/uL (0.7-4.9); Absolute Monocytes 0.3 K/uL (0.1-1.3); Absolute Neutrophil 2.4 K/uL (1.8-8.0); Basophils % 0.3 % (0-1.3); Eosinophils % 3.7 % (0-4.4); Hematocrit 33.3 % (36.0-45.0); Hemoglobin 11.1 g/dL (12.0-15.0); Lymphocytes % 29.3 % (15.3-44.8); MCH 29.7 pg (27.0-35.0); MCHC 33.4 g/dL (32.0-36.0); MPV 6.8 fL (7.6-11.3); Monocytes % 7.4 % (3.3-12.3); Neutrophils % 59.3 % (41.7-73.7); Nucleated Red Blood Cells % 0.1 % (0-0); Platelets 168 thou/uL (152-406); RBC Red Blood Cell Count 3.74 M/uL (3.86-4.86); Red Cell Distribution Width 14.7 % (12.1-15.2)
[2024-01-27 09:54] LABS: PT Prothrombin Time 10.3 SECONDS (9.4-12.5); Protime INR 0.92
--- NOTE | 2024-01-27 10:09 | RAD REPORT ---
EXAM DESCRIPTION: RAD - Ankle Right 3 View - 01/27/2024 9:57 am CLINICAL HISTORY: PAIN COMPARISON: No comparisons FINDINGS/IMPRESSION: No acute fracture. Soft tissue prominence along the medial and dorsal aspect of the leg at the level of the mid tibial diaphysis. Distal tibial plate and screw with intact hardware . Healed distal tibial diaphyseal fracture. Multiple dystrophic calcifications within the soft tissue s may be vascular. Screw present at the calcaneus. Spurring is present at the calcaneus as well. Mild midfoot and hindfoot degenerative changes.
[2024-01-27 10:10] LABS: ALT/SGPT 18 U/L (13-56); AST/SGOT 11 U/L (15-37); Albumin 3.5 g/dL (3.4-5.0); Alkaline Phosphatase 74 U/L (45-117); Anion Gap 8.4 mEq/L (5.0-15.0); BUN Blood Urea Nitrogen 24 mg/dL (7-18); Bicarbonate 27 mEq/L (21-32); Bilirubin Total 0.3 mg/dL (0.2-1.0); Globulin 3.4 g/dL (2.3-3.5); Glomerular Filtration Rate 57 ml/min (=/>90); Glucose Level 99 mg/dL (74-106); Lipase 201 U/L (13-75); NT PRO-BNP 20 pg/mL (<125); Potassium 4.4 mEq/L (3.5-5.1); Protein, Total 6.9 g/dL (6.4-8.2); Sodium Level 142 mEq/L (136-145); Troponin High Sensitivity 5.2 pg/mL (<58.9); Uric Acid 5.8 mg/dL (2.6-6.0)
[2024-01-27 10:11] LABS: Bilirubin Direct < 0.2 mg/dL (0-0.2); Bilirubin Indirect, Calculated 0.1 mg/dL (0.2-0.8)
--- NOTE | 2024-01-27 10:40 | RAD REPORT ---
EXAM DESCRIPTION: US - Extrem Venous W Compress Adriel - 01/27/2024 10:31 am CLINICAL HISTORY: Pain;Swelling COMPARISON: Extremity Venous Uni Ltd dated 02/06/2022 TECHNIQUE: Real-time sonographic evaluation of the lower extremity deep venous systems was performed using color Doppler, grayscale, and compression. FINDINGS: Bilateral lower extremities. Normal compressibility, flow augmentation, phasic flow and spontaneous flow is identified in both the left and right lower extremity deep venous systems. No intraluminal filling defects seen. IMPRESSION: No DVT in either lower extremity.
[2024-01-27] MEDS ORDERED: KETOROLAC 30 MG/ML INJ ONE (11:53)
--- NOTE | 2024-01-27 12:12 | ER ---
Nurse's Notes [facility] Name: Nanci Barros Age: 68 yrs Sex: Female : 1955 Arrival Date: 01/27/2024 Time: 08:49 Bed 7 Private MD: Diagnosis: Pain in right ankle and joints of right foot Presentation: 01/26 08:57 Chief complaint: Right ankle pain and swelling x 2 days. Denies injury. Coronavirus hb screen: At this time, the client does not indicate any symptoms associated with coronavirus-19. Ebola Screen: No symptoms or risks identified at this time. Initial Sepsis Screen: Does the patient meet any 2 criteria? No. Patient's initial sepsis screen is negative. Does the patient have a suspected source of infection? No. Patient's initial sepsis screen is negative. Risk Assessment: Do you want to hurt yourself or someone else? Patient reports no desire to harm self or others. Onset of symptoms was January 26, 2024. 08:57 Method Of Arrival: Ambulatory hb 08:57 Acuity: GET 3 hb Historical: - Allergies: 09:04 PENICILLINS; hb - Home Meds: 09:04 amlodipine 5 mg tab 1 tab once daily [Active]; losartan 100 mg Oral tab once daily hb [Active]; metformin 500 mg Oral tab daily [Active]; nitrofurantoin macrocrystal 100 mg Oral cap [Active]; ozempic 1 mg weekly on Tuesday [Active]; telmisartan-hydrochlorothiazid 80-25 mg Oral tab 0.5 tab once daily [Active]; - PMHx: 09:04 acid reflux; Diabetes - NIDDM; Gout; Hypertension; psoriasis; hb - PSHx: 09:04 Cholecystectomy; Ankle - Right; hb - Immunization history:: Adult Immunizations up to date. - Infectious Disease History:: Denies. - Social history:: Smoking status: Patient denies any tobacco usage or history of. - Family history:: not pertinent. Screenin:00 [facility] ED Fall Risk Assessment (Adult) History of falling in the last 3 months, rs5 including since admission No falls in past 3 months (0 pts) Confusion or Disorientation No (0 pts) Intoxicated or Sedated No (0 pts) Impaired Gait Yes (1 pt) Mobility Assist Device Used Yes (1 pt) Altered Elimination No (0 pt) Score/Fall Risk Level 0 - 2 = Low Risk Oriented to surroundings, Maintained a safe environment. Abuse screen: Denies threats or abuse. Nutritional screening: No deficits noted. Tuberculosis screening: No symptoms or risk factors identified. Assessment: 09:00 General: Appears in no apparent distress. uncomfortable, Behavior is calm, cooperative. rs5 Pain: Complains of pain in right ankle Pain currently is 3 out of 10 on a pain scale. Quality of pain is described as aching, Is continuous. Neuro: Level of Consciousness is awake, alert, obeys commands, Oriented to person, place, time, situation. Cardiovascular: Patient's skin is warm and dry. Respiratory: Airway is patent Respiratory effort is even, unlabored, Respiratory pattern is regular, symmetrical. GI: Abdomen is round non-distended, Abd is soft and non tender X 4 quads. : No signs and/or symptoms were reported regarding the genitourinary system. EENT: No signs and/or symptoms were reported regarding the EENT system. Derm: Skin is intact, Skin is pink, warm \T\ dry. Musculoskeletal: Range of motion: intact in all extremities, Swelling present in right foot and left foot. 10:04 Reassessment: Patient and/or family updated on plan of care and expected duration. Pain rs5 level reassessed. Patient is alert, oriented x 3, equal unlabored respirations, skin warm/dry/pink. 11:15 Reassessment: No changes from previously documented assessment. rs5 12:30 Reassessment: Patient and/or family updated on plan of care and expected duration. Pain rs5 level reassessed. Patient is alert, oriented x 3, equal unlabored respirations, skin warm/dry/pink. Patient denies pain at this time. Patient states feeling better. 13:00 Reassessment: No changes from previously documented assessment. rs5 Vital Signs: 08:57 BP 128 / 77; Pulse 89; Resp 16; Temp 98.4; Pulse Ox 100% ; Weight 98.43 kg; Height 5 hb ft. 6 in. ; Pain 10/10; 10:01 BP 122 / 83; Pulse 84; Resp 16; Pulse Ox 99% on R/A; rs5 12:40 BP 125 / 79; Pulse 81; Resp 17; Pulse Ox 98% on R/A; rs5 08:57 Body Mass Index 35.02 (98.43 kg, 167.64 cm) hb 08:57 Pain Scale: Adult hb ED Course: 08:51 Patient arrived in ED. mr 08:51 Behzad Nichole MD is Attending Physician. [facility] 08:59 Carlos Alberto Mock, RN is Primary Nurse. rs5 09:00 Patient has correct armband on for positive identification. Bed in low position. Call rs5 light in reach. Side rails up X2. 09:00 No provider procedures requiring assistance completed. rs5 09:04 Triage completed. hb 09:05 Arm band placed on. hb 09:25 Missed attempt(s): 24 gauge in right antecubital area. Bleeding controlled, band aid aa5 applied, catheter tip intact. 09:33 Missed attempt(s): 24 gauge in left antecubital area. Bleeding controlled, band aid aa5 applied, catheter tip intact. 09:42 XRAY Chest (1 view) In Process Unspecified. EDMS 09:59 Ankle Right 3 View XRAY In Process Unspecified. EDMS 09:59 EKG done, by ED staff, reviewed by Behzad Nichole MD. em1 10:33 US Extremity Venous W Compression Adriel In Process Unspecified. EDMS 13:00 IV discontinued, intact, bleeding controlled, No redness/swelling at site. Pressure rs5 dressing applied. Administered Medications: 09:46 Drug: NS 0.9% IV 1000 ml IV at 75 ml/hr continuous {Note: to right EJ.} Route: IV; rs5 Rate: 75 ml/hr; Site: Other; 10:00 Follow up: Response: No adverse reaction rs5 11:55 Drug: Ketorolac IVP 15 mg IVP once Route: IVP; Site: right antecubital; rs5 12:20 Follow up: Response: No adverse reaction; Pain is decreased rs5 Medication: 11:15 VIS not applicable for this client. rs5 Outcome: 12:11 Discharge ordered by . antonio 13:00 Discharged to home via wheelchair, with family, rs5 13:00 Condition: stable rs5 13:00 Discharge instructions given to patient, family, Instructed on discharge instructions, follow up and referral plans. medication usage, Demonstrated understanding of instructions, follow-up care, medications, Prescriptions given X 3, 13:02 Patient left the ED. rs5 Signatures: Dispatcher [employer] Behzad Kenny MD MD cha Rivera, Cleo, Reg Reg Bryce Roy em1 Valeria Causey, RN RN aa5 Ashley Jaquez RN RN Carlos Alberto Mock RN RN rs5 Corrections: (The following items were deleted from the chart) 11:15 09:00 Pain: Complains of pain in right foot and left foot Pain currently is 3 out of 10 rs5 on a pain scale. Quality of pain is described as aching, Is continuous, rs5
--- NOTE | 2024-01-27 12:12 | EDPHYS ---
Physician Documentation [facility] Name: Nanci Barros Age: 68 yrs Sex: Female : 1955 Arrival Date: 01/27/2024 Time: 08:49 Bed 7 Private MD: ED Physician Behzad Nichole HPI: 01/26 12:07 This 68 yrs old Black Female presents to ER via Ambulatory with complaints of Feet antonio Swelling. 12:07 The patient presents with decreased range of motion, pain, that is acute. The antonio complaints affect the right ankle and anterior aspect of right ankle. Context: The problem was sustained at home, resulted from an unknown cause. Modifying factors: The symptoms are alleviated by nothing. the symptoms are aggravated by nothing. Severity of symptoms: At their worst the symptoms were mild, moderate, in the emergency department the symptoms are unchanged. The patient has not experienced similar symptoms in the past. Historical: - Allergies: 09:04 PENICILLINS; hb - Home Meds: 09:04 amlodipine 5 mg tab 1 tab once daily [Active]; losartan 100 mg Oral tab once daily hb [Active]; metformin 500 mg Oral tab daily [Active]; nitrofurantoin macrocrystal 100 mg Oral cap [Active]; ozempic 1 mg weekly on Tuesday [Active]; telmisartan-hydrochlorothiazid 80-25 mg Oral tab 0.5 tab once daily [Active]; - PMHx: 09:04 acid reflux; Diabetes - NIDDM; Gout; Hypertension; psoriasis; hb - PSHx: 09:04 Cholecystectomy; Ankle - Right; hb - Immunization history:: Adult Immunizations up to date. - Infectious Disease History:: Denies. - Social history:: Smoking status: Patient denies any tobacco usage or history of. - Family history:: not pertinent. ROS: 12:07 Constitutional: Negative for fever, chills, and weight loss, Eyes: Negative for injury, antonio pain, redness, and discharge, ENT: Negative for injury, pain, and discharge, Neck: Negative for injury, pain, and swelling, Cardiovascular: Negative for chest pain, palpitations, and edema, Respiratory: Negative for shortness of breath, cough, wheezing, and pleuritic chest pain, Abdomen/GI: Negative for abdominal pain, nausea, vomiting, diarrhea, and constipation, Back: Negative for injury and pain, : Negative for injury, bleeding, discharge, and swelling, Skin: Negative for injury, rash, and discoloration, Neuro: Negative for headache, weakness, numbness, tingling, and seizure, Psych: Negative for depression, anxiety, suicide ideation, homicidal ideation, and hallucinations, Allergy/Immunology: Negative for hives, rash, and allergies, Endocrine: Negative for neck swelling, polydipsia, polyuria, polyphagia, and marked weight changes, Hematologic/Lymphatic: Negative for swollen nodes, abnormal bleeding, and unusual bruising, 12:07 MS/extremity: Positive for pain, swelling, tenderness, of the right leg, Exam: 12:07 Constitutional: This is a well developed, well nourished patient who is awake, alert, antonio and in no acute distress. Head/Face: Normocephalic, atraumatic. Eyes: Pupils equal round and reactive to light, extra-ocular motions intact. Lids and lashes normal. Conjunctiva and sclera are non-icteric and not injected. Cornea within normal limits. Periorbital areas with no swelling, redness, or edema. ENT: Nares patent. No nasal discharge, no septal abnormalities noted. Tympanic membranes are normal and external auditory canals are clear. Oropharynx with no redness, swelling, or masses, exudates, or evidence of obstruction, uvula midline. Mucous membranes moist. Neck: Trachea midline, no thyromegaly or masses palpated, and no cervical lymphadenopathy. Supple, full range of motion without nuchal rigidity, or vertebral point tenderness. No Meningismus. Chest/axilla: Normal chest wall appearance and motion. Nontender with no deformity. No lesions are appreciated. Cardiovascular: Regular rate and rhythm with a normal S1 and S2. No gallops, murmurs, or rubs. Normal PMI, no JVD. No pulse deficits. Respiratory: Lungs have equal breath sounds bilaterally, clear to auscultation and percussion. No rales, rhonchi or wheezes noted. No increased work of breathing, no retractions or nasal flaring. Abdomen/GI: Soft, non-tender, with normal bowel sounds. No distension or tympany. No guarding or rebound. No evidence of tenderness throughout. Back: No spinal tenderness. No costovertebral tenderness. Full range of motion. Female : Normal external genitalia. Skin: Warm, dry with normal turgor. Normal color with no rashes, no lesions, and no evidence of cellulitis. Neuro: Awake and alert, GCS 15, oriented to person, place, time, and situation. Cranial nerves II-XII grossly intact. Motor strength 5/5 in all extremities. Sensory grossly intact. Cerebellar exam normal. Normal gait. Psych: Awake, alert, with orientation to person, place and time. Behavior, mood, and affect are within normal limits. 12:07 Musculoskeletal/extremity: Extremities: grossly normal except: noted in the right ankle and anterior aspect of right ankle: decreased ROM, pain, Vital Signs: 08:57 BP 128 / 77; Pulse 89; Resp 16; Temp 98.4; Pulse Ox 100% ; Weight 98.43 kg; Height 5 hb ft. 6 in. ; Pain 10/10; 10:01 BP 122 / 83; Pulse 84; Resp 16; Pulse Ox 99% on R/A; rs5 12:40 BP 125 / 79; Pulse 81; Resp 17; Pulse Ox 98% on R/A; rs5 08:57 Body Mass Index 35.02 (98.43 kg, 167.64 cm) hb 08:57 Pain Scale: Adult hb MDM: 08:51 Patient medically screened. [facility] 12:09 Differential diagnosis: closed fracture, contusion, abrasion, tendonitis. Data antonio reviewed: vital signs, nurses notes, lab test result(s), EKG, radiologic studies, doppler, plain films. Consideration of Admission/Observation Escalation of care including admission/observation considered. I considered the following discharge prescriptions or medication management in the emergency department Medications were administered in the Emergency Department. See MAR. Independent interpretation of the following test(s) in the Emergency Department X-Ray: My interpretation is xray no fx. Care significantly affected by the following chronic conditions: Diabetes, Hypertension, gerd, gout, psorasis. 01/26 08:53 Order name: Basic Metabolic Panel; Complete Time: 11:36 [facility] 01/26 08:53 Order name: CBC with Diff; Complete Time: 11:36 [facility] 01/26 08:53 Order name: LFT's; Complete Time: 11:36 [facility] 01/26 08:53 Order name: Magnesium; Complete Time: 11:36 [facility] 01/26 08:53 Order name: NT PRO-BNP; Complete Time: 11:36 [facility] 01/26 08:53 Order name: PT-INR; Complete Time: 11:36 [facility] 01/26 08:53 Order name: Troponin HS; Complete Time: 11:36 [facility] 01/26 08:53 Order name: Lipase; Complete Time: 11:36 [facility] 01/26 08:53 Order name: Urinalysis w/ reflexes [facility] 01/26 09:57 Order name: Uric Acid; Complete Time: 11:36 EDMS 01/26 08:53 Order name: XRAY Chest (1 view); Complete Time: 11:36 [facility] 01/26 08:53 Order name: US Extremity Venous W Compression Adriel; Complete Time: 11:36 [facility] 01/26 09:48 Order name: Ankle Right 3 View XRAY; Complete Time: 11:36 [facility] 01/26 08:53 Order name: EKG; Complete Time: 08:53 [facility] 01/26 08:53 Order name: Cardiac monitoring; Complete Time: 09:22 [facility] 01/26 08:53 Order name: EKG - Nurse/Tech; Complete Time: 09:59 [facility] 01/26 08:53 Order name: IV Saline Lock; Complete Time: 12:43 [facility] 01/26 08:53 Order name: Labs collected and sent; Complete Time: 12:43 [facility] 01/26 08:53 Order name: O2 Per Protocol; Complete Time: 09:21 [facility] 01/26 08:53 Order name: O2 Sat Monitoring; Complete Time: 09:21 [facility] Administered Medications: 09:46 Drug: NS 0.9% IV 1000 ml IV at 75 ml/hr continuous {Note: to right EJ.} Route: IV; rs5 Rate: 75 ml/hr; Site: Other; 10:00 Follow up: Response: No adverse reaction rs5 11:55 Drug: Ketorolac IVP 15 mg IVP once Route: IVP; Site: right antecubital; rs5 12:20 Follow up: Response: No adverse reaction; Pain is decreased rs5 Disposition Summary: 01/27/24 12:11 Discharge Ordered Notes: Location: Home antonio Problem: new antonio Symptoms: have improved antonio Condition: Stable antonio Diagnosis - Pain in right ankle and joints of right foot antonio Followup: antonio - With: Private Physician - When: 2 - 3 days - Reason: Recheck today's complaints, Continuance of care, Re-evaluation by your physician Discharge Instructions: - Discharge Summary Sheet [facility] - Joint Pain antonio - Arthritis antonio - Musculoskeletal Pain antonio - Ankle Pain antonio - How to Use Cold Therapy antonio - Joint Pain, [id number] [facility] Forms: - Medication Reconciliation Form antonio - Antibiotic Education antonio - Prescription Opioid Use antonio - Patient Portal Instructions [facility] - Leadership Thank You Letter [facility] Prescriptions: - acetaminophen-codeine 300-30 mg Oral tablet - take 2 tablet ORAL route every 6 hours; 20 tablet; Refills: 0, Product antonio Selection Permitted - colchicine 0.6 mg Oral tablet - take 1 tablet ORAL route 2 times per day; 10 tablet; Refills: 0, Product antonio Selection Permitted - diclofenac sodium 25 mg Oral tablet, delayed release (enteric coated) - take 1 tablet ORAL route every 8 hours; 30 tablet; Refills: 0, Product antonio Selection Permitted - ondansetron 4 mg Oral Tablet,disintegrating - take 1 tablet ORAL route every 8-10 hours; 15 tablet; Refills: 0, Product antonio Selection Permitted Signatures: Dispatcher [employer] EDMS Behzad Nichole MD MD [facility] Ashley Jaquez, WILMAR RN Carlos Alberto Mock RN RN rs5 Corrections: (The following items were deleted from the chart) 08:54 08:53 Extrem Venous W Compression Adriel+US.RAD.BRZ ordered. EDMS EDMS 09:49 09:49 Ankle Right 3 View+RAD.RAD.BRZ ordered. EDMS EDMS 09:57 09:49 URIC ACID+C.LAB.BRZ ordered. EDMS EDMS
[2024-01-27 12:19] LABS: Specific Gravity 1.017 (1.005-1.030); Urine Bacteria None Seen /HPF (<20); Urine Bilirubin NEGATIVE (Negative); Urine Blood Negative (Negative); Urine Clarity Turbid (Clear); Urine Color Light-Yellow (Yellow); Urine Culture Reflex Order NOT NEEDED; Urine Glucose NEGATIVE (Negative); Urine Ketones NEGATIVE (Negative); Urine Microscopic Reflex YN ORDER UMIC; Urine Mucus Slight /HPF (None Seen); Urine Nitrite NEGATIVE (Negative); Urine Protein NEGATIVE (Negative); Urine RBC None Seen /HPF (None Seen); Urine Urobilinogen Normal (Normal); Urine WBC <5 /HPF (<5)
[2024-01-27 13:07] VITALS: TEMP 98.4
[2024-01-27 13:11] VITALS: BP 125/79; O2SAT 98
--- NOTE | 2024-01-30 17:10 | EKG ---
Test Date: 2024-01-27 Test Time: 09:56:37 Career Discovery Teacher: MARGO MEASUREMENT RESULTS: Intervals: Rate: 83 WI: 156 QRSD: 82 QT: 352 QTc: 413 [place]: P: 64 WI: 156 QRS: 29 T: 39 INTERPRETIVE STATEMENTS: Normal sinus rhythm Normal ECG Compared to ECG 09/06/2022 07:43:28 No significant changes Electronically Signed On 01-30-24 17:01:45 CDT by Bharath Velasco
== END 2024-01-27 13:02 | disposition home or self-care (01) ==
LOC: ER 08:49
DX: M25.571 Pain in right ankle and joints of right foot (principal)
CPT/HCPCS: 36415; 71045; 80048; 80076; 81001; 83690; 83735; 83880; 84484; 84550; 85025; 85610; 93005; 93970; 96374; 99284; J7030

== ENCOUNTER 2024-08-11 09:40 | Emergency (ER) | payer BC ==
[2024-08-11] MEDS ORDERED: NA CHLORIDE 0.9% 1,000 ML ONE (10:04)
[2024-08-11] MEDS ORDERED: ONDANSETRON 4 MG/2 ML VIAL ONE (10:04)
[2024-08-11] MEDS ORDERED: FAMOTIDINE 20 MG/2 ML VIAL IV ONE (10:04)
[2024-08-11] MEDS ORDERED: PANTOPRAZOLE 40 MG INJ ONE (10:04)
[2024-08-11] MEDS ORDERED: LIDOCAINE VISCOUS 2% 10ML ORAL SOLN ONE (10:04)
[2024-08-11] MEDS ORDERED: MAGNES/ALUMIN/SIMET 30ML UCUP ONE (10:04)
[2024-08-11 11:09] LABS: Absolute Eosinophils 0.2 K/uL (0-0.5); Absolute Lymphocytes (CBC) 1.3 K/uL (0.7-4.9); Absolute Monocytes 0.4 K/uL (0.1-1.3); Basophils % 0.3 % (0-1.3); Eosinophils % 4.9 % (0-4.4); Hematocrit 33.1 % (36.0-45.0); Hemoglobin 11.1 g/dL (12.0-15.0); Lymphocytes % 33.8 % (15.3-44.8); MCH 29.1 pg (27.0-35.0); MCHC 33.5 g/dL (32.0-36.0); MCV 86.8 fL (80-100); MPV 7.1 fL (7.6-11.3); Monocytes % 9.3 % (3.3-12.3); Neutrophils % 51.7 % (41.7-73.7); Nucleated Red Blood Cells % 0.1 % (0-0); Platelets 147 thou/uL (152-406); RBC Red Blood Cell Count 3.82 M/uL (3.86-4.86); Red Cell Distribution Width 13.6 % (12.1-15.2)
[2024-08-11 11:24] LABS: Albumin 3.5 g/dL (3.4-5.0); Albumin/Globulin Ratio 1.1 (1.1-1.8); Anion Gap 4.9 mEq/L (5.0-15.0); Bilirubin Total 0.4 mg/dL (0.2-1.0); Globulin 3.3 g/dL (2.3-3.5); Potassium 3.9 mEq/L (3.5-5.1); Protein, Total 6.8 g/dL (6.4-8.2); Troponin High Sensitivity 5.2 pg/mL (<58.9)
--- NOTE | 2024-08-11 12:24 | ER ---
Nurse's Notes [facility] Name: Nanci Barros Age: 69 yrs Sex: Female : 1955 Arrival Date: 08/11/2024 Time: 09:40 Bed 20 Private MD: Diagnosis: Acute gastritis Presentation: 08/11 09:43 Chief complaint: Patient states: "I have really bad acid reflux". Pt reports epigastric aa5 indigestion and vomiting that began 1 week ago, reports being seen at urgent care and prescribed Bentyl and Carafate without any improvement. 09:43 Coronavirus screen: At this time, the client does not indicate any symptoms associated aa5 with coronavirus-19. Ebola Screen: Patient denies travel to an Ebola-affected area in the 21 days before illness onset. Initial Sepsis Screen: Does the patient meet any 2 criteria? No. Patient's initial sepsis screen is negative. Does the patient have a suspected source of infection? No. Patient's initial sepsis screen is negative. Risk Assessment: Do you want to hurt yourself or someone else? Patient reports no desire to harm self or others. Onset of symptoms was July 2024. 09:43 Acuity: GET 3 aa5 09:43 Method Of Arrival: Ambulatory aa5 Triage Assessment: 10:15 Pain: Complains of pain in abdomen Pain currently is 5 out of 10 on a pain scale. kj2 Neuro: Level of Consciousness is awake, alert, Oriented to person, place, time, situation. Cardiovascular: Patient's skin is warm and dry. Respiratory: Airway is patent Respiratory effort is even, unlabored. GI: Abdomen is. 12:45 General: Appears in no apparent distress. Behavior is calm, cooperative. kj2 Historical: - Allergies: 09:51 PENICILLINS; aa5 - PMHx: 09:51 acid reflux; Diabetes - NIDDM; Gout; Hypertension; psoriasis; GERD (Unknown); aa5 - PSHx: 09:51 Ankle - Right; Cholecystectomy; aa5 - Immunization history:: Adult Immunizations unknown. - Infectious Disease History:: Denies. - Social history:: Smoking status: Patient denies any tobacco usage or history of. Screenin:15 [facility] ED Fall Risk Assessment (Adult) History of falling in the last 3 months, kj2 including since admission No falls in past 3 months (0 pts) Confusion or Disorientation No (0 pts) Intoxicated or Sedated No (0 pts) Impaired Gait No (0 pts) Mobility Assist Device Used No (0 pt) Altered Elimination No (0 pt) Score/Fall Risk Level 0 - 2 = Low Risk Maintained a safe environment, Hourly rounding (assess needs \\T\\ fall precautionary measures) done. Nutritional screening: No deficits noted. Tuberculosis screening: No symptoms or risk factors identified. 12:00 Abuse screen: Denies threats or abuse. Denies injuries from another. kj2 Assessment: 09:50 Reassessment: no IV site, requested assistance from mild disabilities teacher and informed Dr. Herrera. ll1 11:07 Reassessment: Patient appears in no apparent distress at this time. Patient and/or kj2 family updated on plan of care and expected duration. Pain level reassessed. Patient is alert, oriented x 3, equal unlabored respirations, skin warm/dry/pink. 12:07 Reassessment: Patient appears in no apparent distress at this time. Patient and/or kj2 family updated on plan of care and expected duration. Pain level reassessed. Patient is alert, oriented x 3, equal unlabored respirations, skin warm/dry/pink. 12:38 Reassessment: Patient appears in no apparent distress at this time. Patient and/or kj2 family updated on plan of care and expected duration. Pain level reassessed. Patient is alert, oriented x 3, equal unlabored respirations, skin warm/dry/pink. 12:47 GI: Bowel sounds present X 4 quads. Abd is non tender. : No signs and/or symptoms kj2 were reported regarding the genitourinary system. Vital Signs: 09:43 BP 133 / 69; Pulse 82; Resp 16 S; Temp 98(TE); Pulse Ox 100% on R/A; Weight 99.79 kg aa5 (R); Height 5 ft. 6 in. (R); 11:07 BP 124 / 65; Pulse 78; Resp 20; Pulse Ox 100% ; kj2 12:07 BP 109 / 69; Resp 20; Pulse Ox 100% on R/A; kj2 12:38 BP 112 / 70; Pulse 80; Resp 20; Temp 98.2; Pulse Ox 100% on R/A; kj2 09:43 Body Mass Index 35.51 (99.79 kg, 167.64 cm) aa5 ED Course: 09:42 Patient arrived in ED. rg4 09:43 Arm band placed on Patient placed in an exam room, on a stretcher. aa5 09:44 Venice Herrera MD is Attending Physician. sp3 09:54 Triage completed. aa5 10:01 Ji Kwok, RN is Primary Nurse. ll1 10:13 EKG done, by ED staff, reviewed by Venice Herrera MD. em1 11:07 Vanessa Armstrong, WILMAR is Primary Nurse. kj2 12:42 Patient has correct armband on for positive identification. Bed in low position. Call kj2 light in reach. Provided Education on: call light. 12:43 No provider procedures requiring assistance completed. IV discontinued, intact, kj2 bleeding controlled, No redness/swelling at site. Pressure dressing applied. Administered Medications: 11:08 Drug: Famotidine IVP 20 mg IVP once; dilute with 10 mL 0.9% NaCl; give over 2 minutes kj2 Route: IVP; Site: right jugular; 12:48 Follow up: Response: No adverse reaction kj2 11:08 Drug: Pantoprazole IVP 40 mg IVP once Route: IVP; Site: right jugular; kj2 12:48 Follow up: Response: No adverse reaction kj2 11:08 Drug: GI Cocktail without - (Maalox PO 30 ml, Lidocaine Mucous Membrane 2 % 15 kj2 ml) PO once Route: PO; 12:48 Follow up: Response: No adverse reaction kj2 11:09 Drug: Ondansetron IVP 4 mg IVP once; over 2 minutes Route: IVP; Site: right jugular; kj2 12:49 Follow up: Response: No adverse reaction kj2 11:09 Drug: NS 0.9% IV 1000 ml IV at 1 bolus Per protocol; to be given as a bolus over 60 kj2 minutes Route: IV; Rate: 1 bolus; Site: right jugular; 12:48 Follow up: IV Status: Completed infusion; IV Intake: 1000ml kj2 Medication: 12:42 VIS not applicable for this client. kj2 Intake: 12:48 IV: 1000ml; Total: 1000ml. kj2 Outcome: 12:24 Discharge ordered by . sp3 12:47 Discharged to home ambulatory, kj2 12:47 Condition: stable 12:47 Discharge instructions given to patient, Instructed on discharge instructions, follow up and referral plans. 13:02 Patient left the ED. kj2 Signatures: Bryce Parker em1 Valeria Causey, RN RN [id number] Krissy [id number] Ji Kwok, RN RN ll1 Vneice Herrera MD MD sp3 Vanessa Armstrong, RN RN kj2
--- NOTE | 2024-08-11 12:24 | EDPHYS ---
Physician Documentation [facility] Name: Nanci Barros Age: 69 yrs Sex: Female : 1955 Arrival Date: 08/11/2024 Time: 09:40 Bed 20 Private MD: ED Physician Venice Herrera HPI: 08/11 09:55 This 69 yrs old Black Female presents to ER via Ambulatory with complaints of Abdominal sp3 Pain. 09:55 69-year-old female with history of acid reflux, diabetes, hypertension, GERD now sp3 presents to the ED with chief complaint reflux and gastritis type symptoms. Patient states that she has burning in the epigastric region that is coming up into her throat. She denies any chest pain, shortness of breath, back pain, lower abdominal pain, significant vomiting or diarrhea, fever, melena, or any other concerning signs or symptoms on ROS at this time. She has had a cholecystectomy.. Historical: - Allergies: 09:51 PENICILLINS; aa5 - PMHx: 09:51 acid reflux; Diabetes - NIDDM; Gout; Hypertension; psoriasis; GERD (Unknown); aa5 - PSHx: 09:51 Ankle - Right; Cholecystectomy; aa5 - Immunization history:: Adult Immunizations unknown. - Infectious Disease History:: Denies. - Social history:: Smoking status: Patient denies any tobacco usage or history of. ROS: 09:56 Constitutional: Negative for fever, chills, and weight loss, Eyes: Negative for injury, sp3 pain, redness, and discharge, ENT: Negative for injury, pain, and discharge, Neck: Negative for injury, pain, and swelling, Cardiovascular: Negative for chest pain, palpitations, and edema, Respiratory: Negative for shortness of breath, cough, wheezing, and pleuritic chest pain, Back: Negative for injury and pain, : Negative for injury, bleeding, discharge, and swelling, MS/Extremity: Negative for injury and deformity, Skin: Negative for injury, rash, and discoloration, Neuro: Negative for headache, weakness, numbness, tingling, and seizure, Psych: Negative for depression, anxiety, suicide ideation, homicidal ideation, and hallucinations, Allergy/Immunology: Negative for hives, rash, and allergies, Endocrine: Negative for neck swelling, polydipsia, polyuria, polyphagia, and marked weight changes, Hematologic/Lymphatic: Negative for swollen nodes, abnormal bleeding, and unusual bruising, 09:56 All other systems are negative, Exam: 09:56 Constitutional: This is a well developed, well nourished patient who is awake, alert, sp3 and in no acute distress. Head/Face: Normocephalic, atraumatic. Eyes: Pupils equal round and reactive to light, extra-ocular motions intact. Lids and lashes normal. Conjunctiva and sclera are non-icteric and not injected. Cornea within normal limits. Periorbital areas with no swelling, redness, or edema. ENT: Nares patent. No nasal discharge, no septal abnormalities noted. External auditory canals are clear. Oropharynx with no redness, swelling, or masses, exudates, or evidence of obstruction, uvula midline. Mucous membranes moist. Neck: Trachea midline, no thyromegaly or masses palpated, and no cervical lymphadenopathy. Supple, full range of motion without nuchal rigidity, or vertebral point tenderness. No Meningismus. Chest/axilla: Normal chest wall appearance and motion. Nontender with no deformity. No lesions are appreciated. Cardiovascular: Regular rate and rhythm with a normal S1 and S2. No gallops, murmurs, or rubs. Normal PMI, no JVD. No pulse deficits. Respiratory: Lungs have equal breath sounds bilaterally, clear to auscultation and percussion. No rales, rhonchi or wheezes noted. No increased work of breathing, no retractions or nasal flaring. Abdomen/GI: Soft, non-tender, with normal bowel sounds. No distension or tympany. No guarding or rebound. No evidence of tenderness throughout. Back: No spinal tenderness. No costovertebral tenderness. Full range of motion. Skin: Warm, dry with normal turgor. Normal color with no rashes, no lesions, and no evidence of cellulitis. MS/ Extremity: Pulses equal, no cyanosis. Neurovascular intact. Full, normal range of motion. Neuro: Awake and alert, GCS 15, oriented to person, place, time, and situation. Cranial nerves II-XII grossly intact. Motor strength 5/5 in all extremities. Sensory grossly intact. Cerebellar exam normal. Normal gait. Psych: Awake, alert, with orientation to person, place and time. Behavior, mood, and affect are within normal limits. 10:16 ECG was reviewed by the Attending Physician. EKG demonstrates normal sinus rhythm at 73 sp3 bpm with normal intervals, normal QRS, normal axis, normal ST/T segments without evidence of acute ischemia. Vital Signs: 09:43 BP 133 / 69; Pulse 82; Resp 16 S; Temp 98(TE); Pulse Ox 100% on R/A; Weight 99.79 kg aa5 (R); Height 5 ft. 6 in. (R); 11:07 BP 124 / 65; Pulse 78; Resp 20; Pulse Ox 100% ; kj2 12:07 BP 109 / 69; Resp 20; Pulse Ox 100% on R/A; kj2 12:38 BP 112 / 70; Pulse 80; Resp 20; Temp 98.2; Pulse Ox 100% on R/A; kj2 09:43 Body Mass Index 35.51 (99.79 kg, 167.64 cm) aa5 MDM: 09:44 Medical Screening Exam initiated sp3 09:56 Data reviewed: vital signs, nurses notes, lab test result(s), EKG. ED course: sp3 69-year-old female with epigastric pain suspicious for gastritis. Official diagnosis includes gastritis, GERD, pancreatitis, other biliary pathology, other intestinal pathology and to a much lesser degree ACS. Clinically I am at highly suspicious of vascular pathology including aorta, sepsis, shock or any other critical process. Workup will include EKG, labs including troponin, lipase and general labs and treatment with IV fluids, IV Protonix, IV H2 madeleine, GI cocktail and general supportive care. Vital signs are currently normal. Patient has no abdominal pain whatsoever on palpation. If workup negative and she feels better we will safely discharge patient home.. 12:23 ED course: All symptoms resolved and patient feels better. We will safely discharge sp3 patient home.. 08/11 09:50 Order name: CBC with Diff; Complete Time: 11: 3 08/11 09:50 Order name: CMP; Complete Time: 11: sp3 08/11 09:50 Order name: Lipase; Complete Time: 11: sp3 08/11 09:50 Order name: Troponin High Sensitivity; Complete Time: 11: 3 08/11 09:50 Order name: IV Saline Lock; Complete Time: 11:08 sp3 08/11 09:50 Order name: Labs collected and sent; Complete Time: 11:08 sp3 08/11 09:50 Order name: EKG - Nurse/Tech; Complete Time: 10:28 sp3 Administered Medications: 11:08 Drug: Famotidine IVP 20 mg IVP once; dilute with 10 mL 0.9% NaCl; give over 2 minutes kj2 Route: IVP; Site: right jugular; 12:48 Follow up: Response: No adverse reaction kj2 11:08 Drug: Pantoprazole IVP 40 mg IVP once Route: IVP; Site: right jugular; kj2 12:48 Follow up: Response: No adverse reaction kj2 11:08 Drug: GI Cocktail without - (Maalox PO 30 ml, Lidocaine Mucous Membrane 2 % 15 kj2 ml) PO once Route: PO; 12:48 Follow up: Response: No adverse reaction kj2 11:09 Drug: Ondansetron IVP 4 mg IVP once; over 2 minutes Route: IVP; Site: right jugular; kj2 12:49 Follow up: Response: No adverse reaction kj2 11:09 Drug: NS 0.9% IV 1000 ml IV at 1 bolus Per protocol; to be given as a bolus over 60 kj2 minutes Route: IV; Rate: 1 bolus; Site: right jugular; 12:48 Follow up: IV Status: Completed infusion; IV Intake: 1000ml kj2 Disposition Summary: 08/11/24 12:24 Discharge Ordered Notes: Location: Home sp3 Condition: Stable sp3 Diagnosis - Acute gastritis sp3 Followup: sp3 - With: Private Physician - When: Upon discharge from the Emergency Department - Reason: Continuance of care Discharge Instructions: - Discharge Summary Sheet sp3 - Gastritis, Adult sp3 Forms: - Medication Reconciliation Form sp3 - Antibiotic Education sp3 - Prescription Opioid Use sp3 - Patient Portal Instructions sp3 - Leadership Thank You Letter sp3 Signatures: Dispatcher [employer] Valeria Gale, RN RN aa5 Venice Herrera MD MD sp3 Vanessa Armstrong RN RN kj2
[2024-08-11 13:06] VITALS: O2SAT 100
[2024-08-11 13:10] VITALS: BP 112/70; TEMP 98.2
--- NOTE | 2024-08-13 12:05 | EKG ---
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
== END 2024-08-11 13:02 | disposition home or self-care (01) ==
LOC: ER 09:40
DX: K29.00 Acute gastritis without bleeding (principal)
CPT/HCPCS: 36415; 80053; 83690; 84484; 85025; 93005; 96361; 96374; 96375; 99284; J2405; J2470; J7030